=== PATIENT | male | born 1950 | race Caucasian/White ===

== ENCOUNTER 2017-09-21 06:52 | Outpatient (CLI) | payer MEDICARE ==
[2017-09-21 07:40] LABS: Anion Gap 13 mmol/L (10-20); BUN (Urea Nitrogen) 25 mg/dL (8.4-25.7); Calc. Creatinine Clearance 0 mL/min (70-130); Calcium 9.3 mg/dL (7.8-10.44); Carbon Dioxide 21 mmol/L (23-31); Chloride 106 mmol/L (98-107); Estimated GFR-MDRD 50
--- NOTE | 2017-09-21 10:09 | CT ---
EXAM: CT ANGIOGRAM OF THE CHEST: HISTORY: Coronary mapping study. FINDINGS: Visualized mediastinum is unremarkable. No mass, lymphadenopathy, or hematoma. Heart size is within normal limits. No significant pericardial fluid. The visualized upper solid organs are unremarkable. Coronary artery calcifications are noted. Visualized lung parenchyma does not demonstrate any masses or consolidation. Visualized osseous stru ctures are unremarkable. Degenerative changes are noted. Note is made of an incompletely evaluated MediPort catheter. IMPRESSION: Coronary calcifications. POS: [facility]
== END 2017-09-21 06:53 | disposition home or self-care (01) ==
LOC: CT 06:52
PROVIDERS: ATTEND Internal Medicine Cardiovascular Disease
DX: I48.92 Unspecified atrial flutter (principal); R06.02 Shortness of breath; I25.10 Atherosclerotic heart disease of native coronary artery without angina pectoris
CPT/HCPCS: 71275; 80048

== ENCOUNTER 2017-10-02 14:03 | Emergency (ER) | payer MEDICARE ==
[2017-10-02] MEDS ORDERED: Adacel (T-DAP) 0.5 ML VIAL ONE (15:05)
[2017-10-02] MEDS ORDERED: Bacitracin Zinc 1 Packet ONE (15:05)
== END 2017-10-02 16:25 | disposition home or self-care (01) ==
LOC: ERS 14:03
DX: S90.411A Abrasion, right great toe, initial encounter (principal); I48.91 Unspecified atrial fibrillation; I10 Essential (primary) hypertension; E11.40 Type 2 diabetes mellitus with diabetic neuropathy, unspecified; E66.9 Obesity, unspecified; G47.30 Sleep apnea, unspecified; F41.9 Anxiety disorder, unspecified; F32.9 Major depressive disorder, single episode, unspecified; Z79.01 Long term (current) use of anticoagulants; Z79.899 Other long term (current) drug therapy; Z79.4 Long term (current) use of insulin; W26.9XXA Contact with unspecified sharp object(s), initial encounter
CPT/HCPCS: 90471; 90715

== ENCOUNTER 2017-10-13 14:22 | Outpatient (CLI) | payer MEDICARE ==
--- NOTE | 2017-10-13 16:17 | ULT ---
EXAM: RENAL ULTRASOUND 10/13/17 HISTORY: Renal cyst. COMPARISON: None. CORRELATION: Abdomen and pelvic CT 05/15/17. TECHNIQUE: Sagittal and transverse imaging of the kidneys is performed. FINDINGS: Bilaterally, no hydronephrosis. There is mild right renal cortical and left renal cortical thinning. Right kidney measures 11.8 x 5.8 x 6.7 cm. Left kidney measures 12.8 x 5.7 x 5.9 cm. At the upper pole of the left kidney, there is a well circumscribed anechoic focus measuring 3.1 x 2. 6 x 2.8 cm, compatible with a renal cyst. The urinary bladder is unremarkable. Evaluation is limited by decreased bladder volume. IMPRESSION: 1. Bilateral renal cortical thinning. 2. No hydronephrosis. 3. Simple cyst emanating from the upper pole of the left kidney. POS: OFF
== END 2017-10-13 14:23 | disposition home or self-care (01) ==
LOC: ULT 14:22
PROVIDERS: ATTEND Urology
DX: N28.1 Cyst of kidney, acquired (principal)
CPT/HCPCS: 76770

== ENCOUNTER 2017-11-21 05:52 | Day surgery (SDC) | payer MEDICARE ==
[2017-11-21 06:33] LABS: #Basophils 0.1 thou/uL (0.0-0.2); #Eosinphils 0.4 thou/uL (0.0-0.7); #Lymphocytes 1.7 thou/uL (1.20-3.40); #Monocytes 0.9 thou/uL (0.11-0.59); #Neutrophils 5.2 thou/uL (1.40-6.50); %Eosinophils 4.3 % (0.0-10.0); %Lymphocytes 20.7 % (21.0-51.0); %Monocytes 10.5 % (0.0-10.0); %Neutrophils 63.5 % (42.0-75.0); Hemoglobin 11.4 g/dL (14.0-18.0); Mean Corpuscular HGB CONC 33.5 g/dL (32.0-36.0); Mean Corpuscular Volume 89.7 fl (80.0-94.0); Mean Platelet Volume 7.9 fL (7.4-10.4); Platelet Count 247 thou/uL (130-400); RBC Distribution Width 13.2 % (11.5-14.5); Red Blood Cell (RBC) Count 3.79 mill/uL (4.70-6.10); White Blood Cell (WBC) Count 8.2 thou/uL (4.8-10.8)
[2017-11-21 06:41] LABS: INR-International Normal Ratio 2.2; PTT 46.2 SEC (22.9-36.1); Prothrombin Time 25.2 SEC (12.0-14.7)
[2017-11-21 06:56] LABS: ALT (SGPT) 23 U/L (8-55); AST (SGOT) 25 U/L (5-34); Albumin 3.8 g/dL (3.4-4.8); Alkaline Phosphatase 73 U/L (40-150); Anion Gap 17 mmol/L (10-20); BUN (Urea Nitrogen) 23 mg/dL (8.4-25.7); Bilirubin, Total 0.6 mg/dL (0.2-1.2); Calc. Creatinine Clearance 0 mL/min (70-130); Calcium 9.9 mg/dL (7.8-10.44); Carbon Dioxide 20 mmol/L (23-31); Chloride 100 mmol/L (98-107); Estimated GFR-MDRD 45; Globulin 3.4 g/dL (2.4-3.5); Glucose 256 mg/dL (80-115); Potassium 4.4 mmol/L (3.5-5.1); Protein, Total 7.2 g/dL (5.8-8.1); Sodium 133 mmol/L (136-145)
[2017-11-21] MEDS ORDERED: PROPOFOL 20 ML ONE (10:18)
--- NOTE | 2017-11-21 14:18 | OP ---
DATE OF PROCEDURE: 11/21/2017 TRANSESOPHAGEAL ECHOCARDIOGRAM REPORT/CARDIOVERSION REPORT REFERRING PHYSICIAN: Dr. Candie Bernard REASON FOR PROCEDURE: Mr. King is a 67-year-old man with prior history of persistent atrial fibrillation. He underwent pulmonary venous isolation procedure with ablation procedure performed on 09/30/2017. He is now back with atypical atrial flutter. Flecainide was increased to 100 mg twice a day, metoprolol was stopped. The patient is on chronic anticoagulation with warfarin, which though he has not been checking regular. He is to rule out intracardiac clots and proceed with cardioversion. PROCEDURE: The patient received propofol by Anesthesia specialist. After adequate level of sedation achieved, the standard transesophageal echocardiogram was present to the esophagus without difficulty. The patient tolerated procedure well, no complication noted. RESULTS: The left atrium is mildly enlargement. The left appendage was visualized and contains no clots. All 4 pulmonary veins were patent and not stenosed. The visualized portion of the aorta is without aneurysm or dissection , left ventricle is normal in size. Aortic valve is without regurgitation or stenosis. The interatrial septum has a small septal defect with left to right shunting which is the site of the recent transseptal puncture. The tricuspid valve has mild regurgitation. The pericardial space is without effusion. The right-sided chamber is normal in size. The left ventricle is nondilated with normal LV systolic function. CONCLUSION: 1. Normal left ventricular systolic function. 2. No intracardiac clots detected. 3. Mild to moderate left atrial enlargement. 4. Mild MR and TR seen. 5. Small residual atrial septal defect related to the recent transseptal puncture with left to right flow only, likely not significant. PLAN: Proceed with cardioversion. ADDENDUM: After LINDA continued sedation was achieved and cardioversion was performed. Initially with 50 joule shock which failed to convert him back to sinus rhythm, 150 joule shock likewise, eventually at 300 joule shock was applied. This transiently converted him back to sinus rhythm but early recurrence of atrial flutter is noted. The patient continued in 2:1 atrial flutter with 70-80 beats per minute. My plan for now, continue on this current regimen. Continue antiarrhythmic agent- flecainide. We will monitor for tachyarrhythmia, consider resuming metoprolol. If asymptomatic flutter persists we could consider a redo ablation procedure at a later date after 3 months post first ablation. MAYUR
[2017-11-21] MEDS ORDERED: PROPOFOL 200 MG/20 ML VIAL ONE (15:56)
--- NOTE | 2017-11-22 23:34 | EKG ---
Test Reason : PREOP Blood Pressure : / mmHG Vent. Rate : 086 BPM Atrial Rate : 086 BPM P-R Int : 104 ms QRS Dur : 082 ms QT Int : 380 ms P-R-T Axes : 066 035 043 degrees QTc Int : 454 ms Sinus rhythm with short WA Otherwise normal ECG When compared with ECG of 07-MAY-2017 23:45, Sinus rhythm has replaced Atrial fibrillation Confirmed by Eli VIRAMONTES ([id number]) on 11/22/2017 11:34:37 PM Referred By: [facility] Confirmed By:Eli VIRAMONTES
--- NOTE | 2017-11-22 23:38 | EKG ---
Test Reason : POST LINDA/CARDIOVERSI Blood Pressure : / mmHG Vent. Rate : 063 BPM Atrial Rate : 170 BPM P-R Int : 000 ms QRS Dur : 084 ms QT Int : 410 ms P-R-T Axes : 000 046 040 degrees QTc Int : 419 ms Undetermined rhythm Otherwise normal ECG When compared with ECG of 21-NOV-2017 06:56, (Unconfirmed) Current undetermined rhythm precludes rhythm comparison, needs review Confirmed by Eli VIRAMONTES ([id number]) on 11/22/2017 11:37:27 PM Referred By: [facility] Confirmed By:Eli VIRAMONTES
== END 2017-11-21 12:15 | disposition home or self-care (01) ==
LOC: CCL 05:52
PROVIDERS: ATTEND Internal Medicine Cardiovascular Disease
DX: I48.1 Persistent atrial fibrillation (principal); Z79.01 Long term (current) use of anticoagulants; Z79.899 Other long term (current) drug therapy; Z98.890 Other specified postprocedural states
CPT/HCPCS: 36415; 80053; 85025; 85610; 85730; 92960; 93005; 93010; 93312; J2704

== ENCOUNTER 2018-06-08 22:01 | Emergency (ER) | payer MEDICARE ==
[~2018-06-08 22:01] MED LIST: ISOVUE-370 76%-LOCM 1 ML ONE
[2018-06-08 22:19] LABS: #Basophils 0.1 thou/uL (0.0-0.2); #Eosinphils 0.3 thou/uL (0.0-0.7); #Lymphocytes 1.6 thou/uL (1.20-3.40); #Monocytes 1.2 thou/uL (0.11-0.59); %Basophils 0.5 % (0.0-1.0); %Eosinophils 2.5 % (0.0-10.0); %Lymphocytes 13.4 % (21.0-51.0); %Monocytes 9.5 % (0.0-10.0); %Neutrophils 74.2 % (42.0-75.0); Hemoglobin 13.6 g/dL (14.0-18.0); Mean Corpuscular HGB CONC 33.9 g/dL (32.0-36.0); Mean Corpuscular Hemoglobin 30.1 pg (27.0-31.0); Mean Corpuscular Volume 88.8 fL (78.0-98.0); Mean Platelet Volume 7.6 fL (7.4-10.4); Platelet Count 276 thou/uL (130-400); RBC Distribution Width 13.1 % (11.5-14.5); Red Blood Cell (RBC) Count 4.51 mill/uL (4.70-6.10); White Blood Cell (WBC) Count 12.1 thou/uL (4.8-10.8)
[2018-06-08 22:29] LABS: INR-International Normal Ratio 2.6; PTT 43.6 SEC (22.9-36.1)
--- NOTE | 2018-06-08 22:42 | RAD ---
AP VIEW OF THE CHEST: 06/08/18 INDICATION: Chest pain. COMPARISON: Prior study dated 12/05/16. IMPRESSION: There is stable cardiomegaly. Right chest wall port is stable. Vascular calcifications of the aortic arch is stable. No acute osseous abnormality is evident. POS: [facility]
[2018-06-08 22:45] LABS: ALT (SGPT) 35 U/L (8-55); AST (SGOT) 25 U/L (5-34); Albumin 4.4 g/dL (3.4-4.8); Alkaline Phosphatase 70 U/L (40-150); Anion Gap 15 mmol/L (10-20); BUN (Urea Nitrogen) 19 mg/dL (8.4-25.7); Bilirubin, Total 0.4 mg/dL (0.2-1.2); CK (CPK) 87 U/L (30-200); Calc. Creatinine Clearance 0 mL/min (70-130); Calcium 9.8 mg/dL (7.8-10.44); Carbon Dioxide 27 mmol/L (23-31); Chloride 99 mmol/L (98-107); Estimated GFR-MDRD 43; Globulin 3.9 g/dL (2.4-3.5); Glucose 251 mg/dL (80-115); Potassium 4.5 mmol/L (3.5-5.1); Protein, Total 8.3 g/dL (5.8-8.1); Sodium 136 mmol/L (136-145)
[2018-06-08 22:48] LABS: CKMB 2.2 ng/mL (0-6.6); Troponin I Less than 0.010 ng/mL (< 0.028)
--- NOTE | 2018-06-08 23:36 | CT ---
CTA OF THE THORAX UTILIZING IV CONTRAST AND 3D REFORMATTED IMAGIN06/08/18 INDICATION: History of sharp shooting chest pain that radiates into the back. COMPARISON: CT of the abdomen and pelvis dated 05/15/[address] of the chest, abdomen and pelvis dated 09/12/13. FINDINGS: No central or segmental pulmonary embolus is evident. There are new scattered noncalcified pulmonary nodules suspicious for metastatic disease. The largest is seen within the right lower lobe measuring 1.3 cm. There is small bilateral pleural effusions. There is an enlarged anterior mediastinal lymph node on image 38 of series 2 measuring 1 cm. There is an enlarged superior mediastinal lymph node adjacent to the left common carotid and left subclavian artery on image 18 of series 2 measuring 2.4 cm. There are numerous hepatic hypodensities which are new from the comparison examination suspicious for hepatic metastatic disease. Largest seen within the hepatic dome anteriorly on image 87 of series 2 measuring 3 cm. Largest in the left hepatic lobe medially measures 1.9 cm. There is diffuse osteopenia involving the visualized osseous structures. IMPRESSION: 1. No central or segmental pulmonary embolus. 2. Findings of pulmonary and hepatic metastatic disease. 3. Mediastinal lymphadenopathy is suspicious for mediastinal lymph node involvement of malignanc y. 4. Dedicated followup CT of the abdomen and pelvis with IV contrast is recommended for full body survey to evaluate extent of malignant involvement and potential primary source. POS: [facility]
== END 2018-06-08 23:41 | disposition home or self-care (01) ==
LOC: ERS 22:01
DX: R07.89 Other chest pain (principal); R59.0 Localized enlarged lymph nodes; R91.8 Other nonspecific abnormal finding of lung field; I48.91 Unspecified atrial fibrillation; I10 Essential (primary) hypertension; E66.9 Obesity, unspecified; E11.40 Type 2 diabetes mellitus with diabetic neuropathy, unspecified; F41.9 Anxiety disorder, unspecified; F32.9 Major depressive disorder, single episode, unspecified; I49.9 Cardiac arrhythmia, unspecified; Z79.4 Long term (current) use of insulin
CPT/HCPCS: 71045; 71275; 80053; 82550; 82553; 84484; 85025; 85610; 85730; 93005; 94760

== ENCOUNTER 2018-06-16 09:10 | Outpatient (CLI) | payer MEDICARE ==
[~2018-06-16 09:10] MED LIST changes: -ISOVUE-370 76%-LOCM 1 ML ONE; +Iopamidol 370 76% 100 ML VIAL ONE
--- NOTE | 2018-06-19 15:19 | CT ---
CT ABDOMEN AND PELVIS WITH CONTRAST: Date: 06/16/18 Multiple axial tomograms obtained through the abdomen and pelvis with IV enhancement. Oral contrast w as given. INDICATION: History of colon cancer in 2009. This exam is followed up to recent CT angio chest dated 06/08/18 whi ch showed evidence of hepatic metastasis. COMPARISON: CT abdomen and pelvis dated 05/15/17. FINDINGS: Images through the lung bases reveal at least three pulmonary nodules in the right lung base measurin g up to 1.2 cm. There are now numerous hypodense lesions seen throughout the liver which have occurred since exam of 05/15/17. Findings are now consistent with hepatic metastasis. The spleen and pancreas are unremarkable. Adrenal glands appear normal. Kidneys unremarkable. There is an exophytic cyst from the anterior left kidney measuring 2.8 cm, whic h is stable. There is mild perinephric stranding which appears stable. The bladder has irregular shape and there is mild bladder wall thickening which has a similar appeara nce to the prior exam. There is evidence of a diverticulum from the posterior bladder, which was also present on the prior exam. The small bowel loops appear normal. There is haziness in the central mesentery, which is a stable fi nding from 2017. There is a new mesenteric mass in the root of the mesentery in the midline measuring 3.1 cm AP dimens ion in the axial plane consistent with mesenteric adenopathy. Small central calcification within this adenopathy is noted. There was a small area of density and tiny calcification at this site on the pr ior exam. The current study indicates enlargement of mesenteric lymph node since that study. Small bowel loops appear unremarkable. Patient appears to be post right colectomy. There is an enlarged periaortic lymph node at the level of the superior mesenteric artery just to the left of the superior mesenteric artery measuring 1.6 cm. Enlarged aortocaval lymph nodes are seen ju st inferior to the renal veins measuring 1.8 cm. There is a 1.3 cm node just posterior to the vena ca va at this same location. There is an area of thickening of the anterior abdominal wall in the midline measuring approximately 2.6 cm width in the axial plane. This prominence of the anterior abdominal wall is a stable finding f rom 05/15/17 and is probably postoperative. The osseous structures are unremarkable. IMPRESSION: 1. At least three tiny pulmonary nodules in the right lung base concerning for metastasis. 2. Numerous low density lesions in the liver which are too numerous to count consistent with hepatic metastasis. The largest measures 2.6 cm in the upper right lobe. 3. There is mesenteric and periaortic adenopathy which has occurred since exam of 05/15/17 as descri bed above. POS: [facility]
== END 2018-06-16 09:11 | disposition home or self-care (01) ==
LOC: SCSCT 09:10
PROVIDERS: ATTEND Internal Medicine
DX: C18.9 Malignant neoplasm of colon, unspecified (principal); R93.2 Abnormal findings on diagnostic imaging of liver and biliary tract; K76.89 Other specified diseases of liver; R91.8 Other nonspecific abnormal finding of lung field; R59.0 Localized enlarged lymph nodes
CPT/HCPCS: 74177; 82565

== ENCOUNTER 2018-06-22 09:00 | Day surgery (SDC) | payer MEDICARE ==
[2018-06-21 14:27] VITALS: BMI 34.5
[2018-06-22 09:37] LABS: #Basophils 0.1 thou/uL (0.0-0.2); #Eosinphils 0.3 thou/uL (0.0-0.7); #Lymphocytes 1.9 thou/uL (1.20-3.40); #Monocytes 1.2 thou/uL (0.11-0.59); #Neutrophils 10.3 thou/uL (1.40-6.50); %Basophils 0.5 % (0.0-1.0); %Eosinophils 1.9 % (0.0-10.0); %Lymphocytes 13.6 % (21.0-51.0); %Monocytes 8.4 % (0.0-10.0); %Neutrophils 75.5 % (42.0-75.0); Hemoglobin 11.7 g/dL (14.0-18.0); Mean Corpuscular HGB CONC 33.9 g/dL (32.0-36.0); Mean Corpuscular Hemoglobin 30.1 pg (27.0-31.0); Mean Corpuscular Volume 88.7 fL (78.0-98.0); PTT 30.8 SEC (22.9-36.1); Platelet Count 367 thou/uL (130-400); RBC Distribution Width 12.8 % (11.5-14.5); Red Blood Cell (RBC) Count 3.89 mill/uL (4.70-6.10); White Blood Cell (WBC) Count 13.7 thou/uL (4.8-10.8)
[2018-06-22 10:01] VITALS: BP 105/65; TEMP 98.6
--- NOTE | 2018-06-22 13:22 | CT ---
CT GUIDED PERCUTANEOUS BIOPSY OF HEPATIC LESIONS: INDICATIONS: History of colon cancer with numerous hypodense involving the liver, suspicious for recurrent disease . TECHNIQUE: Informed consent was obtained. Pre-procedure CT images were obtained for guidance purposes only. Th e site overlying the right upper quadrant of the abdomen was marked. The site was prepped and draped in the usual sterile fashion. The patient underwent conscious sedation by the radiology nurse and r eceiving 1 mg of IV Versed and 50 mcg of IV fentanyl. Buffered 1% Lidocaine was administered to the overlying subcutaneous tissues and the abdominal wall. Under CT fluoroscopic guidance, a 17 gauge tr ocar needle was guided down to a suspicious lesion within the medial left hepatic lobe, measuring 1.8 cm, on image 9 of series 2 of the pre-procedure CT images. The lesion was sampled twice utilizing a n 18 gauge core biopsy needle with a 2.3 cm throw. Pathology was on site to verify adequacy of tissu e sampling. Upon confirmation of tissue sampling adequacy, a small pledge of Gelfoam was administere d into the biopsy site. The needle was removed. Pressure was held until hemostasis was obtained. T he patient was re-entered into the CT gantry and repeat imaging of the biopsy area was performed. A small amount of pneumobilia was present. No large intraparenchymal hematoma was evident. The patien t tolerated the biopsy without difficulty. IMPRESSION: Successful left hepatic lobe lesion biopsy. POS: [facility]
== END 2018-06-22 12:40 | disposition home or self-care (01) ==
LOC: CT 09:00
PROVIDERS: ATTEND Internal Medicine
PROC: 0FB23ZX Excision of Left Lobe Liver, Percutaneous Approach, Diagnostic (ICD-10-PCS; principal; 2018-06-22)
DX: C78.7 Secondary malignant neoplasm of liver and intrahepatic bile duct (principal); E11.9 Type 2 diabetes mellitus without complications; I10 Essential (primary) hypertension; E78.5 Hyperlipidemia, unspecified; F32.9 Major depressive disorder, single episode, unspecified; G47.33 Obstructive sleep apnea (adult) (pediatric); I48.0 Paroxysmal atrial fibrillation; M19.90 Unspecified osteoarthritis, unspecified site; Z85.038 Personal history of other malignant neoplasm of large intestine; Z79.01 Long term (current) use of anticoagulants; Z79.4 Long term (current) use of insulin; Z79.899 Other long term (current) drug therapy
CPT/HCPCS: 36415; 47000; 77012; 85025; 85610; 85730; 88307; 88333; 88334; 88341; 88342

== ENCOUNTER 2018-07-24 09:26 | Day surgery (SDC) | payer MEDICARE ==
[2018-07-24] MEDS ORDERED: Leucovorin Calcium 50 MG in Dextrose 5% in Water 50 ML IVPB SCH (10:00)
[2018-07-24] MEDS ORDERED: OXALIPLATIN IVPB SCH (10:00)
[2018-07-24] MEDS ORDERED: BEVACIZUMAB IVPB SCH (10:00)
[2018-07-24] MEDS ORDERED: SODIUM CHLORIDE 0.9% IVPB SCH (10:00)
[2018-07-24] MEDS ORDERED: Palonosetron HCl 0.25 MG in Dextrose 5% in Water 50 ML IVPB SCH (10:00)
[2018-07-24] MEDS ORDERED: WATER IVPB SCH ×2 (10:00)
[2018-07-24] MEDS ORDERED: FLUOROURACIL IVPB SCH (10:00)
[2018-07-24] MEDS ORDERED: DEXTROSE 5% IVPB SCH ×2 (10:00)
[2018-07-24] MEDS ORDERED: Bevacizumab 100 MG, Bevacizumab 400 MG in Sodium Chloride 0.9% 80 ML IVPB SCH (10:15)
[2018-07-24 18:23] VITALS: BP 129/67; TEMP 99.3
== END 2018-07-24 18:23 | disposition home or self-care (01) ==
LOC: ONC/OP 09:26
PROVIDERS: ATTEND Internal Medicine Hematology & Oncology
DX: Z51.11 Encounter for antineoplastic chemotherapy (principal); C78.7 Secondary malignant neoplasm of liver and intrahepatic bile duct; C78.01 Secondary malignant neoplasm of right lung; C18.6 Malignant neoplasm of descending colon; E11.9 Type 2 diabetes mellitus without complications; I10 Essential (primary) hypertension; E78.5 Hyperlipidemia, unspecified; G47.33 Obstructive sleep apnea (adult) (pediatric); Z79.4 Long term (current) use of insulin; Z79.899 Other long term (current) drug therapy
CPT/HCPCS: 36415; 80053; 82248; 82378; 83615; 84100; 84550; 96367; 96375; 96413; 96415; 96417; J0640; J1100; J2469; J7050; J7070; J9035; J9190; J9263

== ENCOUNTER 2018-08-07 10:11 | Day surgery (SDC) | payer MEDICARE ==
[2018-08-07] MEDS ORDERED: WATER IVPB SCH ×3 (11:00→11:30)
[2018-08-07] MEDS ORDERED: OXALIPLATIN IVPB SCH (11:00)
[2018-08-07] MEDS ORDERED: DEXTROSE 5% IVPB SCH ×3 (11:00→11:30)
[2018-08-07] MEDS ORDERED: Palonosetron HCl 0.25 MG in Dextrose 5% in Water 50 ML IVPB SCH (11:00)
[2018-08-07 11:13] VITALS: BP 118/58; TEMP 98.2
[2018-08-07] MEDS ORDERED: Sodium Chloride 0.9% 20 ML ONE (11:14)
[2018-08-07] MEDS ORDERED: Leucovorin Calcium 50 MG in Dextrose 5% in Water 50 ML IVPB SCH (11:15)
[2018-08-07] MEDS ORDERED: FLUOROURACIL IVPB SCH (11:15)
[2018-08-07] MEDS ORDERED: Bevacizumab 500 MG in Sodium Chloride 0.9% 80 ML IVPB SCH (11:15)
[2018-08-07] MEDS ORDERED: DEXAMETHASONE SOD PHOSPHATE IVPB SCH (11:30)
== END 2018-08-07 17:09 | disposition home or self-care (01) ==
LOC: ONC/OP 10:11
PROVIDERS: ATTEND Internal Medicine Hematology & Oncology
DX: Z51.11 Encounter for antineoplastic chemotherapy (principal); C78.7 Secondary malignant neoplasm of liver and intrahepatic bile duct; C78.01 Secondary malignant neoplasm of right lung; C18.6 Malignant neoplasm of descending colon; Z79.01 Long term (current) use of anticoagulants; Z79.4 Long term (current) use of insulin; Z79.899 Other long term (current) drug therapy; Z90.49 Acquired absence of other specified parts of digestive tract
CPT/HCPCS: 96367; 96375; 96413; 96415; 96416; 96417; A4216; J0640; J1100; J1642; J2469; J7050; J7070; J9035; J9190; J9263

== ENCOUNTER → 2018-08-21 | Day surgery (SDC) | payer MEDICARE ==
[~2018-08-21] MED LIST changes: +ADMIXTURE FEE IVPB SCH; +Bevacizumab 400 MG, Bevacizumab 100 MG in Sodium Chloride 0.9% 80 ML IVPB SCH; +Bevacizumab 500 MG in Sodium Chloride 0.9% 80 ML IVPB SCH; +DEXAMETHASONE IVPB SCH; +DEXTROSE 5% IVPB SCH; +DEXTROSE IVPB SCH; +FLUOROURACIL IVPB SCH; -Iopamidol 370 76% 100 ML VIAL ONE; +Leucovorin Calcium 50 MG, Admixture Fee 1 EACH in Dextrose 5% in Water 50 ML IVPB SCH; +OXALIPLATIN IVPB SCH; +PALONOSETRON HCL IVPB SCH; +Sodium Chloride 0.9% 20 ML ONE; +WATER IVPB SCH
[2018-08-21 12:30] VITALS: BP 134/69; TEMP 97.6
== END ==
LOC: ONC/OP 12:03
PROVIDERS: ATTEND Internal Medicine Hematology & Oncology
DX: Z51.11 Encounter for antineoplastic chemotherapy (principal); C18.6 Malignant neoplasm of descending colon; C78.7 Secondary malignant neoplasm of liver and intrahepatic bile duct; C78.01 Secondary malignant neoplasm of right lung; E11.9 Type 2 diabetes mellitus without complications; I10 Essential (primary) hypertension; E78.5 Hyperlipidemia, unspecified; M19.90 Unspecified osteoarthritis, unspecified site; F32.9 Major depressive disorder, single episode, unspecified; F41.9 Anxiety disorder, unspecified; D50.9 Iron deficiency anemia, unspecified; G47.33 Obstructive sleep apnea (adult) (pediatric); Z79.4 Long term (current) use of insulin; Z79.01 Long term (current) use of anticoagulants; Z79.899 Other long term (current) drug therapy; Z90.49 Acquired absence of other specified parts of digestive tract
CPT/HCPCS: 96367; 96375; 96413; 96416; 96417; J0640; J1100; J1642; J2469; J7050; J7070; J9035; J9190; J9263

== ENCOUNTER 2018-09-04 09:56 | Day surgery (SDC) | payer MEDICARE ==
[2018-09-04] MEDS ORDERED: Sodium Chloride 0.9% 20 ML ONE (10:05)
[2018-09-04 10:26] VITALS: BP 121/60; TEMP 97.7
[2018-09-04] MEDS ORDERED: Leucovorin Calcium 50 MG in Dextrose 5% in Water 50 ML IVPB SCH (10:45)
[2018-09-04] MEDS ORDERED: WATER IVPB SCH ×3 (10:45→11:00)
[2018-09-04] MEDS ORDERED: OXALIPLATIN IVPB SCH (10:45)
[2018-09-04] MEDS ORDERED: DEXTROSE 5% IVPB SCH ×3 (10:45→11:00)
[2018-09-04] MEDS ORDERED: FLUOROURACIL IVPB SCH (10:45)
[2018-09-04] MEDS ORDERED: PALONOSETRON HCL 0.05 MG/ML 5 ML VIAL IVP SCH (10:45)
[2018-09-04] MEDS ORDERED: Dexamethasone 10 MG/ML VIAL SLOW IVP SCH (10:45)
[2018-09-04] MEDS ORDERED: Palonosetron HCl 0.25 MG in Dextrose 5% in Water 50 ML IVPB SCH (11:00)
[2018-09-04] MEDS ORDERED: Bevacizumab 500 MG in Sodium Chloride 0.9% 80 ML IVPB SCH (11:00)
[2018-09-04] MEDS ORDERED: DEXAMETHASONE SOD PHOSPHATE IVPB SCH (11:00)
== END 2018-09-04 16:05 | disposition home or self-care (01) ==
LOC: ONC/OP 09:56
PROVIDERS: ATTEND Internal Medicine Hematology & Oncology
DX: Z51.11 Encounter for antineoplastic chemotherapy (principal); C18.6 Malignant neoplasm of descending colon; C78.01 Secondary malignant neoplasm of right lung; C78.7 Secondary malignant neoplasm of liver and intrahepatic bile duct; E11.9 Type 2 diabetes mellitus without complications; D50.9 Iron deficiency anemia, unspecified; G47.33 Obstructive sleep apnea (adult) (pediatric); I10 Essential (primary) hypertension; E78.5 Hyperlipidemia, unspecified; F41.9 Anxiety disorder, unspecified; F32.9 Major depressive disorder, single episode, unspecified; M19.90 Unspecified osteoarthritis, unspecified site; Z79.01 Long term (current) use of anticoagulants; Z79.4 Long term (current) use of insulin; Z79.899 Other long term (current) drug therapy; Z90.49 Acquired absence of other specified parts of digestive tract
CPT/HCPCS: 36415; 80053; 82248; 82378; 83615; 84100; 84550; 96367; 96375; 96413; 96415; 96416; 96417; J0640; J1642; J2469; J7050; J7070; J9035; J9190; J9263

== ENCOUNTER 2018-09-18 11:47 | Day surgery (SDC) | payer MEDICARE ==
[2018-09-18 12:29] VITALS: BP 132/68; TEMP 97.7
[2018-09-18] MEDS ORDERED: PALONOSETRON HCL 0.05 MG/ML 5 ML VIAL IVP SCH (12:45)
[2018-09-18] MEDS ORDERED: OXALIPLATIN IVPB SCH (12:45)
[2018-09-18] MEDS ORDERED: Leucovorin Calcium 50 MG in Dextrose 5% in Water 50 ML IVPB SCH (12:45)
[2018-09-18] MEDS ORDERED: WATER IVPB SCH ×2 (12:45)
[2018-09-18] MEDS ORDERED: Bevacizumab 500 MG in Sodium Chloride 0.9% 80 ML IVPB SCH (12:45)
[2018-09-18] MEDS ORDERED: Dexamethasone 10 MG/ML VIAL SLOW IVP SCH (12:45)
[2018-09-18] MEDS ORDERED: FLUOROURACIL IVPB SCH (12:45)
[2018-09-18] MEDS ORDERED: DEXTROSE 5% IVPB SCH ×2 (12:45)
== END 2018-09-18 17:07 | disposition home or self-care (01) ==
LOC: ONC/OP 11:47
PROVIDERS: ATTEND Internal Medicine Hematology & Oncology
DX: Z51.11 Encounter for antineoplastic chemotherapy (principal); C18.6 Malignant neoplasm of descending colon; C78.7 Secondary malignant neoplasm of liver and intrahepatic bile duct; C78.01 Secondary malignant neoplasm of right lung; E11.9 Type 2 diabetes mellitus without complications; I10 Essential (primary) hypertension; E78.5 Hyperlipidemia, unspecified; M19.90 Unspecified osteoarthritis, unspecified site; F41.9 Anxiety disorder, unspecified; F32.9 Major depressive disorder, single episode, unspecified; G47.33 Obstructive sleep apnea (adult) (pediatric); Z79.01 Long term (current) use of anticoagulants; Z79.4 Long term (current) use of insulin; Z79.899 Other long term (current) drug therapy; Z90.49 Acquired absence of other specified parts of digestive tract
CPT/HCPCS: 96367; 96375; 96413; 96415; 96416; 96417; J0640; J1100; J1642; J2469; J7050; J7070; J9035; J9190; J9263

== ENCOUNTER 2018-10-02 09:39 | Day surgery (SDC) | payer MEDICARE ==
[2018-10-02] MEDS ORDERED: Sodium Chloride 0.9% 20 ML ONE (09:51)
[2018-10-02 11:04] VITALS: BP 130/63; TEMP 97.7
[2018-10-02] MEDS ORDERED: PALONOSETRON HCL 0.05 MG/ML 5 ML VIAL IVP SCH (11:15)
[2018-10-02] MEDS ORDERED: Dexamethasone 10 MG/ML VIAL SLOW IVP SCH (11:15)
[2018-10-02] MEDS ORDERED: OXALIPLATIN IVPB SCH (11:15)
[2018-10-02] MEDS ORDERED: DEXTROSE 5% IVPB SCH ×2 (11:15→11:30)
[2018-10-02] MEDS ORDERED: WATER IVPB SCH ×2 (11:15→11:30)
[2018-10-02] MEDS ORDERED: Leucovorin Calcium 50 MG in Dextrose 5% in Water 50 ML IVPB SCH (11:30)
[2018-10-02] MEDS ORDERED: Bevacizumab 500 MG in Sodium Chloride 0.9% 80 ML IVPB SCH (11:30)
[2018-10-02] MEDS ORDERED: FLUOROURACIL IVPB SCH (11:30)
== END 2018-10-02 17:12 | disposition home or self-care (01) ==
LOC: ONC/OP 09:39
PROVIDERS: ATTEND Internal Medicine Hematology & Oncology
DX: Z51.11 Encounter for antineoplastic chemotherapy (principal); C18.6 Malignant neoplasm of descending colon; C78.7 Secondary malignant neoplasm of liver and intrahepatic bile duct; C78.01 Secondary malignant neoplasm of right lung; I48.91 Unspecified atrial fibrillation; E11.9 Type 2 diabetes mellitus without complications; I10 Essential (primary) hypertension; E78.5 Hyperlipidemia, unspecified; M19.90 Unspecified osteoarthritis, unspecified site; F41.9 Anxiety disorder, unspecified; F32.9 Major depressive disorder, single episode, unspecified; G47.33 Obstructive sleep apnea (adult) (pediatric); Z79.01 Long term (current) use of anticoagulants; Z79.4 Long term (current) use of insulin; Z79.899 Other long term (current) drug therapy; Z90.49 Acquired absence of other specified parts of digestive tract
CPT/HCPCS: 96367; 96375; 96413; 96415; 96417; J0640; J1100; J2469; J7050; J7070; J9035; J9190; J9263

== ENCOUNTER 2018-10-09 17:56 | Emergency (ER) | payer MEDICARE, OTHER ==
[2018-10-09] MEDS ORDERED: Ondansetron PF 4 MG/2 ML Vial ONE ×2 (18:35→22:11)
[2018-10-09 18:38] LABS: #Eosinphils 0.1 thou/uL (0.0-0.7); #Lymphocytes 0.9 thou/uL (1.20-3.40); #Monocytes 0.4 thou/uL (0.11-0.59); #Neutrophils 2.3 thou/uL (1.40-6.50); %Basophils 0.3 % (0.0-1.0); %Eosinophils 2.6 % (0.0-10.0); %Lymphocytes 24.2 % (21.0-51.0); %Monocytes 11.5 % (0.0-10.0); %Neutrophils 61.5 % (42.0-75.0); Hemoglobin 11.6 g/dL (14.0-18.0); Mean Corpuscular HGB CONC 35.6 g/dL (32.0-36.0); Mean Corpuscular Hemoglobin 33.1 pg (27.0-31.0); Mean Corpuscular Volume 92.8 fL (78.0-98.0); Mean Platelet Volume 7.3 fL (7.4-10.4); Platelet Count 192 thou/uL (130-400); RBC Distribution Width 16.8 % (11.5-14.5); Red Blood Cell (RBC) Count 3.51 mill/uL (4.70-6.10); White Blood Cell (WBC) Count 3.7 thou/uL (4.8-10.8)
[2018-10-09 18:55] LABS: ALT (SGPT) 19 U/L (8-55); AST (SGOT) 21 U/L (5-34); Albumin 3.5 g/dL (3.4-4.8); Alkaline Phosphatase 59 U/L (40-150); Anion Gap 12 mmol/L (10-20); BUN (Urea Nitrogen) 30 mg/dL (8.4-25.7); Bilirubin, Total 0.5 mg/dL (0.2-1.2); Calc. Creatinine Clearance 0 mL/min (70-130); Calcium 8.5 mg/dL (7.8-10.44); Carbon Dioxide 24 mmol/L (23-31); Chloride 95 mmol/L (98-107); Estimated GFR-MDRD 42; Globulin 3.3 g/dL (2.4-3.5); Glucose 207 mg/dL (80-115); Lipase 8 U/L (8-78); Protein, Total 6.8 g/dL (5.8-8.1); Sodium 127 mmol/L (136-145)
[2018-10-09 21:18] LABS: Bilirubin Negative (Negative); Blood, Urine Trace (Negative); Clarity CLOUDY (Clear); Glucose, Urine (Dipstick) 500 mg/dL (Negative); Leukocyte Small (Negative); Nitrite Positive (Negative); Protein, Urine (Dipstick) 30 mg/dL (Neg-Trace); Specific Gravity, Urine 1.018 (1.002-1.036); Urobilinogen 0.2 mg/dL (0.2-1.0); pH, Urine 5.5 (5.0-9.0)
[2018-10-09 21:19] LABS: Bacteria/HPF 2+ HPF (None Seen); Hyaline Casts/LPF 4-6 HYALINE CAST LPF (0-3 Hyaline); Pathc Cast-AUWi Flag 0.29 (0-2.49); RBC/HPF 0-3 HPF (0-3); Squamous Epithelial None Seen HPF (0-3); WBC/HPF 21-50 HPF (0-3)
[2018-10-09] MEDS ORDERED: cefTRIAXone\\ROCEPHIN 1 GM VIAL ONE (21:41)
[2018-10-09 23:36] LABS: Lactic Acid 1.4 mmol/L (0.5-2.2)
[2018-10-10 02:52] LABS: Osmolality, Urine 459 mOsm/kg (300-900)
[2018-10-10 03:19] LABS: Sodium, Urine 33 mmol/L (Not Available)
== END 2018-10-09 23:08 | disposition home or self-care (01) ==
LOC: ERS 17:56
DX: R19.7 Diarrhea, unspecified (principal); N39.0 Urinary tract infection, site not specified; I48.91 Unspecified atrial fibrillation; E11.9 Type 2 diabetes mellitus without complications; I10 Essential (primary) hypertension; E11.40 Type 2 diabetes mellitus with diabetic neuropathy, unspecified; E66.9 Obesity, unspecified; G47.30 Sleep apnea, unspecified; F41.9 Anxiety disorder, unspecified; F32.9 Major depressive disorder, single episode, unspecified; Z79.899 Other long term (current) drug therapy; Z79.01 Long term (current) use of anticoagulants; Z79.4 Long term (current) use of insulin
CPT/HCPCS: 36415; 80053; 81003; 81015; 82274; 83605; 83690; 83930; 83935; 84300; 85025; 87077; 87086; J0696; J2405

== ENCOUNTER 2018-10-10 00:51 | Inpatient (IN) | payer MEDICARE, OTHER ==
[2018-10-10] MEDS ORDERED: Mag-Al 1200 mg/1200 mg/30 ML UDCUP ONE (02:03)
[2018-10-10] MEDS ORDERED: Lidocaine Viscous Sol 2% 15 ml UD Cup ONE (02:03)
[2018-10-10] MEDS ORDERED: Dicyclomine 20 MG TAB ONE (02:03)
[2018-10-10] MEDS ORDERED: Ondansetron PF 4 MG/2 ML Vial ONE (02:03)
[2018-10-10 02:39] LABS: Anion Gap 10 mmol/L (10-20); BUN (Urea Nitrogen) 28 mg/dL (8.4-25.7); CK (CPK) 63 U/L (30-200); Calc. Creatinine Clearance 0 mL/min (70-130); Calcium 8.1 mg/dL (7.8-10.44); Carbon Dioxide 25 mmol/L (23-31); Chloride 102 mmol/L (98-107); Estimated GFR-MDRD 51; Glucose 130 mg/dL (80-115); Potassium 4.2 mmol/L (3.5-5.1); Sodium 133 mmol/L (136-145)
[2018-10-10 06:05] LABS: Hemoglobin 10.5 g/dL (14.0-18.0); Mean Corpuscular HGB CONC 35.6 g/dL (32.0-36.0); Mean Corpuscular Volume 92.8 fL (78.0-98.0); Mean Platelet Volume 7.3 fL (7.4-10.4); Platelet Count 166 thou/uL (130-400); RBC Distribution Width 16.7 % (11.5-14.5); Red Blood Cell (RBC) Count 3.17 mill/uL (4.70-6.10); White Blood Cell (WBC) Count 3.2 thou/uL (4.8-10.8)
[2018-10-10 06:10] LABS: Lactic Acid 1.2 mmol/L (0.5-2.2)
[2018-10-10 06:12] LABS: ALT (SGPT) 16 U/L (8-55); AST (SGOT) 17 U/L (5-34); Alkaline Phosphatase 46 U/L (40-150); Anion Gap 11 mmol/L (10-20); BUN (Urea Nitrogen) 28 mg/dL (8.4-25.7); Bilirubin, Total 0.4 mg/dL (0.2-1.2); Calc. Creatinine Clearance 0 mL/min (70-130); Calcium 7.9 mg/dL (7.8-10.44); Carbon Dioxide 22 mmol/L (23-31); Chloride 102 mmol/L (98-107); Estimated GFR-MDRD 52; Globulin 2.7 g/dL (2.4-3.5); Glucose 118 mg/dL (80-115); Potassium 3.6 mmol/L (3.5-5.1); Protein, Total 5.7 g/dL (5.8-8.1); Sodium 131 mmol/L (136-145)
[2018-10-10 06:32] LABS: Band 26 % (5-11); Eosinophils 3 % (0-10); Lymphocytes 35 % (21-51); MDiff Complete? YES; Monocytes 8 % (0-10); Neutrophil 26 % (42-75); Reactive Lymphocytes 2 % (0-10)
[2018-10-10] MEDS ORDERED: Ondansetron ODT 4 MG TAB SL PRN (06:50)
[2018-10-10] MEDS ORDERED: Acetaminophen 325 MG TAB PO PRN (06:50)
[2018-10-10] MEDS ORDERED: Ondansetron PF 4 MG/2 ML Vial IVP PRN (06:50)
[2018-10-10] MEDS ORDERED: Sodium Chloride 0.9% 1,000 ML IV SCH (06:50)
[2018-10-10] MEDS ORDERED: Dextrose 50% Abboject 50 ML SYRINGE SLOW IVP PRN (07:37)
[2018-10-10] MEDS ORDERED: Dextrose 5% in Water 1,000 ML IV PRN (07:37)
--- NOTE | 2018-10-10 09:07 | CT ---
PRELIMINARY REPORT/[facility]/EMERGENTY AFTER-HOURS PROCEDURE CT Abdomen and Pelvis With Contrast EXAM DATE/TIME: 10/10/2018 3:05 AM CLINICAL HISTORY: 68 years old, male; worsening lower abdominal pain, was just dc but told to come back if symptoms ret urned. HX stage 3 colon cancer, current cancer therapy. HX diabetes, chronic afib on warfarin present s as a bounce back to ER for diffuse abdominal pain and diarrhea since last week. States watery diarrhea x 5 episodes today. Last chemo a week ago TECHNIQUE: Axial computed tomography images of the abdomen and pelvis with intravenous contrast. Coronal reformatted images were created and reviewed. COMPARISON: No relevant prior studies available. FINDINGS: Lower thorax: Coronary artery and aortic / mitral valve annulus calcification. Possible 3 mm nodule posteromedial right lung base axial image 19. ABDOMEN: Liver: Scattered low-density lesions of varying sizes throughout the liver measuring up to 2.2 cm in diameter and consistent with hepatic metastatic disease. Gallbladder and bile ducts: Normal. No calcified stones. No ductal dilation. Pancreas: Normal. No ductal dilation. Spleen: Normal. No splenomegaly. Adrenals: Normal. No mass. Kidneys and ureters: 2.8 cm lateral left renal simple cyst. No hydronephrosis. Stomach and bowel: Nonspecific stranding in the small bowel mesentery Prior right hemicolectomy with ileocolic anastomosis in the mid transverse colon region. Multiple small bowel loops exhibit mild wal l thickening indicating a mild enteritis. No well-formed stool within the colon - only fluid and air - suggesting diarrhea. Appendix: No evidence of appendicitis. PELVIS: Bladder: Air collection within anterior portion of the bladder lumen following montoya catheterization. Bladder infection cannot be totally excluded. Reproductive: Prostate gland is not enlarged. Vas deferens calcification. ABDOMEN and PELVIS: Intraperitoneal space: Normal. No free air. No significant fluid collection. Bones/joints: Spinal degenerative changes. Soft tissues: Prior ventral hernia repair. Vasculature: Normal. No abdominal aortic aneurysm. Lymph nodes: Approximate 3.5 x 1.6 cm enlarged lymph node in the medial harriet hepatis region. 2.1 cm lymph node within the mid mesentery on axial image 47. IMPRESSION: 1. Scattered low-density lesions of varying sizes throughout the liver measuring up to 2.2 cm in diam eter and consistent with hepatic metastatic disease. 2. Approximate 3.5 x 1.6 cm enlarged lymph node in the medial harriet hepatis region. 2.1 cm lymph node within the mid mesentery on axial image 47. 3. Prior right hemicolectomy with ileocolic anastomosis in the mid transverse colon region. 4. Multiple small bowel loops exhibit mild wall thickening indicating a mild enteritis. 5. No well-formed stool within the colon - only fluid and air - suggesting diarrhea. 6. Air collection within anterior portion of the bladder lumen following montoya catheterization. Bladd er infection cannot be totally excluded. 7. Possible 3 mm nodule posteromedial right lung base axial image 19. Thank you for allowing us to participate in the care of your patient. Dictated and Authenticated by: Arben Kwon MD 10/10/2018 3:48 AM Central Time ([place] & [place]) FINAL REPORT EMERGENCY AFTER HOURS CT ABDOMEN AND PELVIS WITH IV CONTRAST: Date: 10/10/18 HISTORY: Periumbilical abdominal pain. COMPARISON: 06/16/18. IMPRESSION: 1. Stable multiple hypodense lesions scattered within each lobe of the liver, compatible with he patic metastatic disease. 2. Enlarged lymph node in the region of the harriet hepatis in a precaval location, also seen on p rior study, but is actually smaller in size, previously measuring 5.4 cm x 2.3 cm and now measures 4. 4 cm x 1.8 cm. 3. Hypodense lesion within the central mesentery measuring approximately 2.7 cm in maximal dimen sions, and previously measured 3.1 cm in maximal dimensions. There is stable inflammatory stranding a nd haziness within the central mesentery as well. 4. Postsurgical changes related to right hemicolectomy. 5. Approximately 6.0 mm pulmonary nodule at the posteromedial right lung base. This measured 13. 0 mm on the prior exam. Additional tiny nodular densities also seen within the right middle lobe with a conglomeration of very tiny pulmonary nodules in this region, but this is also diminished from the prior exam. The additional pulmonary nodule in the right lung base is no longer visualized. 6. Focus of gas in the urinary bladder which may be related to recent catheterization. Clinical correlation is recommended. 7. Focal area of thickening in the anterior abdominal wall in the midline. The exact etiology of this area is uncertain, but could potentially be related to prior postsurgical changes. This is stab le compared to the prior exam in 2017. 8. Low density focus within the gluteal subcutaneous fat on the right, which could be related to small sebaceous cyst. This is also stable compared to study dating back to 2017. Findings are in agreement with the preliminary report by [facility]. POS: [facility]
[2018-10-10] MEDS ORDERED: Cefepime 1 GM in Sodium Chloride 0.9% 100 ML IVPB SCH (10:00)
[2018-10-10] MEDS ORDERED: Iopamidol 370 76% 100 ML VIAL ONE (10:02)
[2018-10-10] MEDS: Morphine 2 MG/ML SYRINGE SLOW IVP PRN ×3 (10:05→21:11)
[2018-10-10 11:08] VITALS: BMI 33.5
[2018-10-10] MEDS: metroNIDAZOLE 500 MG in Premix Bag 1 BAG IVPB SCH ×3 (12:20→23:28)
[2018-10-10] MEDS: HumaLOG 300 UNITS/3 ML VIAL SC PRN (12:22)
--- NOTE | 2018-10-10 13:16 | HP ---
CHIEF COMPLAINT: Diarrhea, nausea, and abdominal pain. HISTORY OF PRESENT ILLNESS: The patient is a 68-year-old male with recurrent colon cancer, on chemotherapy, the last session a week ago, who presented to the emergency room with few day history of abdominal pain, nausea, but no vomiting, and diarrhea. He has watery bowel movements from 8 to 10 daily. This did not really change much from the beginning of this illness. He denies any fever or chills. He denies any chest pain. No shortness of breath. PAST MEDICAL HISTORY: Positive for; 1. Recurrent colon cancer, on chemotherapy. 2. Chronic atrial fibrillation, status post ablation x2. 3. Hypertension. 4. Restless legs syndrome. 5. Chronic kidney disease. 6. Obesity and obstructive sleep apnea. PAST SURGICAL HISTORY: 1. Right fourth toe amputation for osteomyelitis. 2. Colon surgery along with liver resection. 3. Hernia repair. SOCIAL HISTORY: He denies any alcohol intake, cigarette smoking, or illicit drug use. ALLERGIES: NONE. MEDICATIONS: 1. Gabapentin 300 mg three times a day. 2. Loperamide 2 mg as needed. 3. Glipizide 10 mg twice a day. 4. Zofran ODT 8 mg p.r.n. every 8 hours. 5. Warfarin 7.5 mg once a day, half a tablet on Tuesdays. 6. Metoprolol tartrate 25 mg twice a day. 7. Lisinopril 20 mg once a day. 8. Flecainide 100 mg twice a day. 9. Janumet 50 mg/1000 mg one tablet twice a day. 10. Lipitor 20 mg once a day. 11. Levemir 40 units twice a day. 12. Melatonin p.r.n. 13. Keflex 500 mg four times a day. FAMILY HISTORY: He was adopted, so he does not know his biological parents. REVIEW OF SYSTEMS: Fourteen systems were reviewed and symptoms from those systems are negative except for those mentioned in the HPI. PHYSICAL EXAMINATION: VITAL SIGNS: Last blood pressure recorded on the chart, blood pressure 129/75, pulse 92, respiratory rate 17, temperature 98.6, and O2 saturation is 99% on room air. HEENT: Head is atraumatic and normocephalic. Eyes, PERRLA. Sclerae are nonicteric. Conjunctivae palish. Oral mucosa is slightly dry. NECK: Supple. No lymphadenopathy. Thyroid is not palpable. LUNGS: Clear. There is a MediPort in the right upper chest. HEART: S1 and S2. Irregularly irregular. No S3. No S4. ABDOMEN: Soft, nontender, and nondistended. Bowel sounds are present, quite active. No organomegaly. EXTREMITIES: No clubbing, cyanosis, or edema. Pulses on both tibialis posterior and dorsalis pedis arteries similar bilaterally and diminished. NEUROLOGICAL: He is alert and oriented x4. There are no any motor or sensory deficits present. Cranial nerves are intact. LABORATORY DATA: Showed a white count of 3.2, hemoglobin 10.5, hematocrit 29.4, and platelet count is 166. There is 26% of neutrophils and 26 bands. Chemistry shows sodium of 131, potassium 3.6, chloride 102, BUN 28, creatinine 1.35, glucose 118, total protein 5.7, and albumin 3.0. DIAGNOSTIC DATA: 1. EKG showed atrial fibrillation with controlled ventricular rate, some prolongation of QT interval. 2. CT of the abdomen and pelvis results are still pending, but there is some suspicion that he might have colitis. IMPRESSION: 1. Acute gastroenteritis and since he is immunocompromised, I will start him on antibiotics. He has elevated bands and leukopenia. I will start him on cefepime and metronidazole. Continue IV fluids. Stool cultures are pending. 2. Renal failure, acute on chronic. 3. Chronic atrial fibrillation with controlled ventricular rate. 4. Hypertension. 5. Type 2 diabetes mellitus. 6. Colon cancer, recurrent. 7. Restless legs syndrome. 8. Obesity and obstructive sleep apnea. PLAN: Full admission. Condition is fair. Activity bedrest and bathroom privileges. IV normal saline 120 mL/h for now. Start cefepime and metronidazole. Morphine p.r.n. for the pain. DVT prophylaxis with SCDs and Lovenox and reconcile his home medications. Accu-Chek a.c. and at bedtime and my sliding scale and he will be on clear liquids for now. Job ID: [id number]
[2018-10-10] MEDS: Sodium Chloride 0.9% 1,000 ML IV SCH (17:08)
[2018-10-11] MEDS: Cefepime 1 GM in Sodium Chloride 0.9% 100 ML IVPB SCH ×2 (01:22→14:18)
[2018-10-11] MEDS: Morphine 2 MG/ML SYRINGE SLOW IVP PRN ×4 (02:26→19:24)
[2018-10-11] MEDS: Sodium Chloride 0.9% 1,000 ML IV SCH ×3 (04:34→15:51)
[2018-10-11] MEDS: metroNIDAZOLE 500 MG in Premix Bag 1 BAG IVPB SCH ×2 (05:16→14:00)
[2018-10-11] MEDS ORDERED: Dextrose 5% in Water 1,000 ML IV PRN (12:12)
[2018-10-11] MEDS ORDERED: Dextrose 50% Abboject 50 ML SYRINGE SLOW IVP PRN (12:12)
--- NOTE | 2018-10-11 13:24 | PRG ---
DATE OF SERVICE: 10/11/2018 SUBJECTIVE: The patient is seen and examined at the bedside. He is having a lot of watery stools up to 15 in the last 24 hours. There is no blood in the stool. He has some abdominal cramps. No nausea. No vomiting. His appetite is diminished. OBJECTIVE: VITAL SIGNS: Blood pressure is 119/81, pulse is 111, temperature is 98.6, respirations 20, pulse oximetry is 97% on room air. HEENT: His head is atraumatic and normocephalic. Eyes are PERRLA. Sclerae are nonicteric. Conjunctivae palish. Oral mucosa is moist. NECK: Supple. No lymphadenopathy. Thyroid is not palpable. Right upper chest MediPort in place. LUNGS: Clear. HEART: S1 and S2. Irregularly irregular. No S3. No S4. ABDOMEN: Soft, mildly tender in diffuse fashion. No guarding. No masses. EXTREMITIES: No clubbing, cyanosis, or edema. Right heel showed decubitus with eschar covering the area. NEUROLOGIC: He is alert and oriented x4. There are no any sensory or motor deficits. Cranial nerves are intact. During my visit, the patient's and his friend present in the room. LABORATORY DATA: Glycemia is ranging from 125 to 162. Microbiology; all tests on his stool negative including Campylobacter, Clostridium difficile antigen and toxins, and stool cultures. Lactoferrin came back positive on his stool. IMPRESSION: 1. Acute enteritis. The patient is not improving. He still has approximately 10 to 15 watery bowel movements in 24 hours despite of taking cefepime and metronidazole. We will get a GI consult with Dr. Wells. We will decrease the IV fluids to 100 mL/hour. We will continue cefepime and metronidazole since all cultures basically negative. 2. Renal failure, acute on chronic. 3. Chronic atrial fibrillation with controlled ventricular rate. We are going to restart his flecainide today. 4. Hypertension, despite of not being on his home medications, his blood pressure is running in good range, so I am going to hold his lisinopril from restarting. 5. Diabetes mellitus type 2, the same situation here. He is going to do Accu-Cheks a.c. and at bedtime and we covered with insulin sliding scale and we are not going to give him home dose of Lantus, which is 40 units along with diabetic pill, which is glipizide. 6. Colon cancer, recurrent. The patient is supposed to have a followup CT, but this is going to be postponed. 7. Restless legs syndrome. 8. Obesity and obstructive sleep apnea. The patient is using BiPAP at home and at night during this hospitalization. PLAN: Plan is to get a GI consult. I will start him on Florastor. Continue both antibiotics. Start his flecainide. Continue full liquid diet, and he might be scoped by lace pinner. Job ID: [id number]
[2018-10-11 14:41] LABS: Hemoglobin 9.4 g/dL (14.0-18.0); Mean Corpuscular HGB CONC 33.9 g/dL (32.0-36.0); Mean Corpuscular Hemoglobin 31.8 pg (27.0-31.0); Mean Corpuscular Volume 93.7 fL (78.0-98.0); Mean Platelet Volume 6.7 fL (7.4-10.4); Platelet Count 126 thou/uL (130-400); RBC Distribution Width 16.6 % (11.5-14.5); Red Blood Cell (RBC) Count 2.96 mill/uL (4.70-6.10); White Blood Cell (WBC) Count 2.6 thou/uL (4.8-10.8)
[2018-10-11 15:15] LABS: Anisocytosis SLIGHT = 6-15 cells (100X) (0-5/hpf); Band 18 % (5-11); Dohle Bodies SLIGHT; Eosinophils 1 % (0-10); Lymphocytes 27 % (21-51); MDiff Complete? YES; Monocytes 24 % (0-10); Neutrophil 22 % (42-75); Ovalocytes SLIGHT = 2-5 cells (100X) (0-1/hpf); PLT Morphology Comment Appears Decreased; Polychromasia SLIGHT = 2-3 cells (100X) (0-2/hpf); Reactive Lymphocytes 7 % (0-10)
[2018-10-11] MEDS ORDERED: Flecainide 50 MG TAB PO SCH (15:30)
[2018-10-11] MEDS ORDERED: Melatonin 3 MG TAB PO PRN (15:49)
[2018-10-11] MEDS ORDERED: Ondansetron ODT 4 MG TAB PO PRN (15:50)
[2018-10-11] MEDS ORDERED: Prochlorperazine Maleate 5 MG TAB PO PRN (15:51)
[2018-10-11] MEDS: Flecainide 50 MG TAB PO SCH (20:24)
[2018-10-11] MEDS: Diphenoxylate HCl/Atropine Tablet PO SCH (20:25)
[2018-10-11] MEDS: Gabapentin 300 MG CAP PO SCH (20:26)
[2018-10-11] MEDS: diphenhydrAMINE 25 MG CAP PO SCH (21:25)
--- NOTE | 2018-10-11 21:48 | CON ---
DATE OF CONSULTATION: 10/11/2018 REASON FOR CONSULTATION: Diarrhea. HISTORY OF PRESENT ILLNESS: Mr. 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 He has had previous colon cancer, resulted in right hemicolectomy with ileocolonic anastomosis. He has had chronic loose stool 2 to 3 times a day and previously had been on colestipol for bile acid diarrhea. However, over the last five days, he has had significantly increasing diarrhea, 15 to 20 episodes of watery loose stool daily without any mucus or blood. He reports having diffuse abdominal cramps after eating. There is some nausea, but without any actual vomiting. He denies having any fever. He was on a 4-day course of oral antibiotics approximately a week and a half ago for foot ulcer. The patient has been on outpatient chemotherapy for his colon cancer that started back in July without any significant diarrhea. On admission, his CT exam was normal except for nonspecific small bowel mild wall thickening and hepatic metastatic disease. The colon appeared normal on scan. His stool lactoferrin is positive. Cultures, C. diff, E. coli, and Campylobacter were negative. PAST MEDICAL HISTORY: 1. Colon cancer, status post right hemicolectomy, now with recurrent metastatic cancer to liver and lungs. 2. Atrial fibrillation. 3. Hypertension. 4. Restless legs syndrome. 5. Obstructive sleep apnea. 6. Chronic kidney disease. 7. History of toe amputation. ALLERGIES: NONE. MEDICATIONS: Include; 1. Gabapentin. 2. Glipizide. 3. Warfarin. 4. Metoprolol. 5. Lisinopril. 6. Flecainide. 7. Janumet. 8. Lipitor. 9. Levemir. 10. Melatonin. 11. Keflex. SOCIAL HISTORY: The patient is . He denies any active tobacco or alcohol usage. FAMILY HISTORY: The patient's family history is unknown as the patient was adopted. REVIEW OF SYSTEMS: Positive for weight loss, exact amount is not known. He reports feeling weak and fatigue. No fever or night sweats. Other 10-point review of systems did not show any other pertinent positives or negatives. PHYSICAL EXAMINATION: VITAL SIGNS: Temperature is 98.6, blood pressure 119/81, pulse of 110. GENERAL: He is alert, conversant, in no distress. HEENT: Exam shows anicteric sclerae. Oropharynx clear. NECK: Supple. CV: Shows normal S1, S2. Regular rate and rhythm. CHEST: Shows breath sounds. ABDOMEN: Protuberant, but soft and nontender to palpation. There is no palpable mass or organomegaly. Good bowel sounds. No bruits. EXTREMITIES: Shows no edema. LABORATORY DATA: WBCs 2.6, hemoglobin 9.4, platelet count of 126. Sodium 131, potassium 3.6, chloride 102. LFTs are normal. Stool lactoferrin is positive. C. diff negative for toxin and antigen. Stool culture negative. Campylobacter and E. coli toxin are negative. ASSESSMENT: A 68-year-old man with significantly increasing diarrhea for the last five days over his baseline, frequent loose stool from previous right hemicolectomy. CT scan showed nonspecific mild mural thickening of the small bowel without any definite abnormalities to the colon. Stool studies are negative. Stool lactoferrin is positive, but this could be very nonspecific. The patient did have an outpatient colonoscopy in August 2017 with findings of small polyps. Differential diagnosis includes antibiotic-associated diarrhea that was given for his foot ulcer recently, diarrhea related to his chemotherapy, which I do not know what regimen he is currently on, doubt microscopic colitis at the present time, and doubt malabsorption. RECOMMENDATION: 1. Repeat stool C. diff. 2. Check spot fecal fat. 3. Discontinue cefepime and metronidazole as there is no evidence of bacterial infection. 4. We will contact [facility] to determine what chemotherapeutic agent that he is on that may be contributing to his diarrhea. 5. We will follow. Job ID: [id number]
[2018-10-12] MEDS: Sodium Chloride 0.9% 1,000 ML IV SCH ×3 (01:35→16:04)
--- NOTE | 2018-10-12 05:04 | CON ---
DATE OF CONSULTATION: 10/11/2018 LOCATION: [facility]. CHIEF COMPLAINT: Decubitus ulcer, right heel. HISTORY OF PRESENT ILLNESS: The patient is a 68-year-old male who was admitted to [facility] in [facility] on the 10 of October for abdominal pain and nausea, but no vomiting or diarrhea. The patient notes that he was seen within the last week or so by his primary care. During that visit, it was noted that he had an ulceration, unstageable decubitus ulcer on his right heel. The patient notes he was given antibiotic at that time to help treat the ulceration as well as being told to reduce pressure on the site. The patient notes that following this, he developed abdominal pain and nausea which escalated to the point that required him to go to the emergency room. The patient denies any fever or chills and notes that he has not been vomiting. The patient is diabetic. No other complaints today. PAST MEDICAL HISTORY: Recurrent colon cancer, chronic atrial fibrillation, hypertension, restless legs syndrome, chronic kidney disease, and obesity. PAST SURGICAL HISTORY: 1. Right 4th toe amputation due to osteomyelitis. 2. Colon surgery along with liver resection. 3. Hernia repair. SOCIAL HISTORY: Denies any alcohol, cigarette, or illicit drug use. ALLERGIES: NONE. MEDICATIONS: Per chart. FAMILY HISTORY: Noncontributory. REVIEW OF SYSTEMS: Noncontributory. PHYSICAL EXAMINATION: PULSES: DP and PT palpable, 2/4 bilaterally. NEURO: Diminished to the level of the mid foot bilaterally. MUSCULOSKELETAL: Muscle strength is 5/5 in all muscle groups with dorsiflexion, plantar flexion, inversion, eversion of bilateral feet. DERM: The patient is missing 4th digit on the right foot. The patient also has an unstageable decubitus ulcer at the posterior aspect of his right heel. There is a blister noted in this location that is intact with some black discoloration to heel. No erythema or edema. No drainage noted. No purulence. Fluid filling in the blister appears to be serous and clear. No exposed tendon or bone. No malodor. LABORATORY DATA: White blood cell count 2.6, hemoglobin 9.4, hematocrit 27.7, platelets 126,000. Glucose 187. Blood cultures are negative so far. ASSESSMENT: Decubitus heel ulcer, right foot. PLAN: At this time, the patient was educated on decubitus heel ulcers. Recommended offloading boot to be applied to the patient's right lower extremity. Painted wound with Betadine and applied a light dressing. As patient is in hospital, recommend continued light dressing with Betadine and cover the area to prevent infection from settling in the heel. The patient needs to keep his heel elevated off the bed at all times via boot or stack of pillows underneath his lower leg. No pressure is detected back of the right heel at any point. Ordered wound care for daily dressing changes. Ordered offloading boot to be applied to right lower extremity. The patient's decubitus ulcer is stable at this time. Job ID: [id number]
[2018-10-12 06:12] LABS: Anion Gap 11 mmol/L (10-20); BUN (Urea Nitrogen) 8 mg/dL (8.4-25.7); Calc. Creatinine Clearance 90 mL/min (70-130); Calcium 7.7 mg/dL (7.8-10.44); Carbon Dioxide 19 mmol/L (23-31); Chloride 105 mmol/L (98-107); Estimated GFR-MDRD 61; Glucose 175 mg/dL (80-115); Potassium 3.3 mmol/L (3.5-5.1); Sodium 132 mmol/L (136-145)
[2018-10-12 08:23] LABS: Prothrombin Time 72.5 SEC (12.0-14.7)
[2018-10-12 08:25] LABS: INR-International Normal Ratio 8.9
[2018-10-12] MEDS: metFORMIN 500 MG TAB PO SCH ×2 (08:42→16:04)
[2018-10-12] MEDS: Alogliptin 6.25 MG TAB PO SCH (08:43)
[2018-10-12] MEDS: Gabapentin 300 MG CAP PO SCH ×3 (08:43→20:36)
[2018-10-12] MEDS: Flecainide 50 MG TAB PO SCH ×2 (08:43→20:35)
[2018-10-12] MEDS: Saccharomyces boulardii 250 MG CAP PO SCH (08:44)
[2018-10-12] MEDS: Morphine 2 MG/ML SYRINGE SLOW IVP PRN ×3 (08:50→23:54)
[2018-10-12] MEDS: Diphenoxylate HCl/Atropine Tablet PO SCH ×3 (09:24→20:39)
[2018-10-12] MEDS ORDERED: Potassium Chloride 20 MEQ TAB PO SCH (10:00)
--- NOTE | 2018-10-12 11:48 | PRG ---
DATE OF SERVICE: 10/12/2018 SUBJECTIVE: The patient is feeling better. He is having much less bowel movements than before. Dr. Wells started him on a scheduled dose of Lomotil 2 b.i.d. He has had 7 bowel movements this morning already. He denies any abdominal pain. He reports a good liquid intake, but not a lot of food intake because of the lack of appetite. OBJECTIVE: VITAL SIGNS: Temperature is 97.9, pulse 99, respiratory rate 18, and blood pressure 145/90. CHEST: Clear. CARDIOVASCULAR: Regular rate and rhythm. ABDOMEN: Soft and nontender without organomegaly or masses. LABORATORY DATA: Sodium 132, potassium 3.3, CO2 of 19, glucose 175, calcium 7.7, and magnesium 1.1. CBC yesterday showed a white blood cell count of 2.6, hemoglobin 9.4, and hematocrit 27.7. ASSESSMENT: Acute diarrhea - antibiotic associated versus chemotherapy versus Clostridium difficile. RECOMMENDATIONS: 1. Increase Lomotil. 2. Discontinue antibiotics. 3. Increase oral intake. 4. Magnesium replacement. Job ID: [id number]
--- NOTE | 2018-10-12 13:22 | PRG ---
DATE OF SERVICE: 10/12/2018 SUBJECTIVE: The patient is doing better. He had less bowel movement, approximately 6 or 7 since yesterday. He still has some abdominal pain, but much less, and he tolerates food. OBJECTIVE: VITAL SIGNS: Blood pressure is 145/90, pulse is 99, respiratory rate is 18, O2 saturation is 97% on room air, and temperature is 97.7. His maximal temperature is 99.3. HEENT: Head is atraumatic and normocephalic. Eyes, PERRLA. Sclerae are nonicteric. Oral mucosa is moist. NECK: Supple. LUNGS: Clear. HEART: S1, S2. Irregularly irregular. No S3, no S4. No any murmur. ABDOMEN: Soft, mildly tender on deeper palpation. Bowel sounds are quite active. No guarding. No masses. EXTREMITIES: No clubbing, cyanosis, or edema. NEUROLOGIC: He is alert and oriented x4. There is no any motor or sensory deficits. Cranial nerves are intact. LABORATORY DATA: Showed INR of 8.9, PT of 72.5, sodium of 132, potassium 3.3, chloride 105, CO2 19, BUN is 8, creatinine 1.18, glucose 175, calcium 7.7, magnesium 1.1. Microbiology, no new findings. IMPRESSION: 1. Colitis. The patient was seen by Gastroenterology, Dr. Wells, who recommends to stop antibiotics and try to look for different cause of his colitis. Chemo related versus other noninfectious causes like antibiotic related. Apparently, he was treated prior to this hospitalization with some antibiotic. He is asking for Clostridium difficile toxins and antigen to be repeated again and this is pending. 2. Renal failure, acute on chronic, improved. 3. Chronic atrial fibrillation with controlled ventricular rate. The patient is on flecainide and it looks like his rate improved from 111 to 99 today. 4. Hypertension. We will start him on some of his home medications since his blood pressure started climbing up. Also, the patient was seen by manager knowledge for his right heel decubitus and will follow his recommendations for now and will continue morphine as needed. Job ID: [id number]
[2018-10-12] MEDS ORDERED: Warfarin Sodium 5 MG TAB PO SCH (17:00)
[2018-10-12] MEDS: HumaLOG 300 UNITS/3 ML VIAL SC PRN (17:45)
[2018-10-12] MEDS: Magnesium 2 GM/50 ML 2 GM in Premix Bag 1 BAG IVPB SCH ×2 (17:45→23:20)
[2018-10-12] MEDS: diphenhydrAMINE 25 MG CAP PO SCH (20:35)
[2018-10-13 05:14] LABS: Anion Gap 10 mmol/L (10-20); BUN (Urea Nitrogen) 7 mg/dL (8.4-25.7); Calc. Creatinine Clearance 94 mL/min (70-130); Carbon Dioxide 21 mmol/L (23-31); Chloride 105 mmol/L (98-107); Estimated GFR-MDRD 64; Glucose 121 mg/dL (80-115); Potassium 3.5 mmol/L (3.5-5.1); Sodium 132 mmol/L (136-145)
[2018-10-13] MEDS: Sodium Chloride 0.9% 1,000 ML IV SCH ×3 (05:34→20:50)
[2018-10-13 08:47] LABS: Prothrombin Time 64.5 SEC (12.0-14.7)
[2018-10-13 08:49] LABS: Hemoglobin 9.5 g/dL (14.0-18.0); Mean Corpuscular HGB CONC 34.3 g/dL (32.0-36.0); Mean Corpuscular Hemoglobin 31.9 pg (27.0-31.0); Mean Corpuscular Volume 93.1 fL (78.0-98.0); Platelet Count 153 thou/uL (130-400); RBC Distribution Width 16.5 % (11.5-14.5); Red Blood Cell (RBC) Count 2.97 mill/uL (4.70-6.10); White Blood Cell (WBC) Count 4.1 thou/uL (4.8-10.8)
[2018-10-13 08:52] LABS: INR-International Normal Ratio 7.7
--- NOTE | 2018-10-13 08:56 | PRG ---
DATE OF SERVICE: 10/13/2018 SUBJECTIVE: The patient is seen and examined at bedside. He is feeling somewhat better today. He did physical therapy yesterday. His appetite is coming back. He still has quite a few watery bowel movements, but this is improved from the time when we started him on antidiarrheal medications. He is off antibiotics. OBJECTIVE: VITAL SIGNS: Blood pressure is 138/78, pulse is 88, temperature is 97.5, maximal temperature is 99.2, respiratory rate is 18, and O2 saturation is 96% on room air. HEENT: His head is atraumatic and normocephalic. Eyes, PERRLA. Sclerae are nonicteric. Conjunctivae palish. Oral mucosa is moist. NECK: Supple. No lymphadenopathy. Thyroid is not palpable. LUNGS: Clear. HEART: S1 and S2 are normal. No S3. No S4. No any murmur. ABDOMEN: Obese and not tender. Bowel sounds are present. No organomegaly. EXTREMITIES: No clubbing, cyanosis, or edema. NEUROLOGICAL: He is alert and oriented x4. There is no any motor deficit. LABORATORY DATA: None. MICROBIOLOGY: No new findings. IMPRESSION: 1. Colitis, still unknown etiology and chemo versus antibiotic related. 2. Chronic atrial fibrillation with controlled ventricular rate. The patient will continue on flecainide. 3. Hyper-anticoagulation, most likely related to interaction between antibiotics and Coumadin. Coumadin is stopped. PT and INR are still pending this morning. No signs of bleeding though. 4. Hypertension, controlled. 5. Right heel decubitus. The patient was seen by research and insights executive who recommends just local treatment with povidone and off pressure of his heel. 6. Renal failure, improved. 7. History of recurrent colorectal cancer. 8. Hypomagnesemia and hypokalemia, status post replacement. We will check magnesium level and potassium level this morning along with phosphorus. 9. Diabetes mellitus. His glycemia is down to 120s this morning and it ranges from 120s to 200s. We will continue current regimen on his diabetic coverage and hypertension since thus he is acceptable for this phase of his illness. We will continue PT. We will sit him out of the bed in the chair and continue regimen recommended by historic interpreter. Job ID: [id number]
[2018-10-13 09:02] LABS: ALT (SGPT) 17 U/L (8-55); AST (SGOT) 20 U/L (5-34); Albumin 2.6 g/dL (3.4-4.8); Alkaline Phosphatase 45 U/L (40-150); Anion Gap 12 mmol/L (10-20); BUN (Urea Nitrogen) 6 mg/dL (8.4-25.7); Bilirubin, Total 0.5 mg/dL (0.2-1.2); Calc. Creatinine Clearance 93 mL/min (70-130); Carbon Dioxide 19 mmol/L (23-31); Chloride 104 mmol/L (98-107); Estimated GFR-MDRD 64; Globulin 2.7 g/dL (2.4-3.5); Glucose 155 mg/dL (80-115); Magnesium 1.9 mg/dL (1.6-2.6); Potassium 3.2 mmol/L (3.5-5.1); Protein, Total 5.3 g/dL (5.8-8.1); Sodium 132 mmol/L (136-145)
[2018-10-13] MEDS: metFORMIN 500 MG TAB PO SCH ×2 (09:12→17:05)
[2018-10-13 09:13] LABS: Phosphorus 1.4 mg/dL (2.3-4.7)
[2018-10-13] MEDS: Alogliptin 6.25 MG TAB PO SCH (09:13)
[2018-10-13] MEDS: Gabapentin 300 MG CAP PO SCH ×3 (09:14→20:34)
[2018-10-13] MEDS: Saccharomyces boulardii 250 MG CAP PO SCH (09:14)
[2018-10-13] MEDS: traMADol HCl 50 MG TAB PO SCH (09:18)
[2018-10-13] MEDS: Flecainide 50 MG TAB PO SCH ×2 (10:09→20:32)
[2018-10-13] MEDS ORDERED: Potassium Chloride 20 MEQ in Premix Bag 1 BAG IVPB SCH (10:45)
[2018-10-13] MEDS ORDERED: Potassium Chloride 20 MEQ TAB PO SCH (10:45)
[2018-10-13] MEDS: Diphenoxylate HCl/Atropine Tablet PO SCH ×3 (10:53→20:32)
[2018-10-13 11:06] LABS: Band 20 % (5-11); Dohle Bodies SLIGHT; Eosinophils 6 % (0-10); Lymphocytes 36 % (21-51); MDiff Complete? YES; Monocytes 18 % (0-10); Neutrophil 14 % (42-75); PLT Morphology Comment Appears Adequate; Reactive Lymphocytes 4 % (0-10)
[2018-10-13] MEDS ORDERED: Potassium Phosphate 30 MMOL in Sodium Chloride 0.9% 500 ML IVPB SCH (12:00)
[2018-10-13] MEDS: HumaLOG 300 UNITS/3 ML VIAL SC PRN ×2 (12:32→17:08)
--- NOTE | 2018-10-13 16:32 | PRG ---
DATE OF SERVICE: 10/13/2018 SUBJECTIVE: The patient is feeling better. His appetite has returned. He is eating better. However, his diarrhea is about the same. OBJECTIVE: VITAL SIGNS: Temperature 97.9, pulse 78, respiratory rate 16, blood pressure 143/88. HEENT: Unremarkable. NECK: Supple. CHEST: Clear. CARDIOVASCULAR: Regular rate and rhythm. ABDOMEN: Soft, nontender without organomegaly or masses. LABORATORY DATA: Sodium 132, potassium 3.2, CO2 of 19, BUN 6, glucose 155, albumin 2.6, phosphorus 1.4. ASSESSMENT: Severe diarrhea-multifactorial with previous right hemicolectomy, chemotherapy, and antibiotics. RECOMMENDATIONS: 1. Recheck C. difficile. 2. Continue scheduled Lomotil. 3. May consider Oncology opinion if his diarrhea persists and/or possible flexible sigmoidoscopy. Job ID: [id number]
[2018-10-13] MEDS: K-Phos Neutral 250 MG TAB PO SCH (17:06)
[2018-10-13] MEDS: Morphine 2 MG/ML SYRINGE SLOW IVP PRN (17:24)
[2018-10-13] MEDS: diphenhydrAMINE 25 MG CAP PO SCH (20:32)
[2018-10-14] MEDS: Morphine 2 MG/ML SYRINGE SLOW IVP PRN (01:25)
[2018-10-14 05:20] LABS: Anion Gap 8 mmol/L (10-20); BUN (Urea Nitrogen) 7 mg/dL (8.4-25.7); Calc. Creatinine Clearance 90 mL/min (70-130); Calcium 7.7 mg/dL (7.8-10.44); Carbon Dioxide 21 mmol/L (23-31); Chloride 107 mmol/L (98-107); Estimated GFR-MDRD 62; Glucose 187 mg/dL (80-115); Potassium 3.3 mmol/L (3.5-5.1); Sodium 133 mmol/L (136-145)
[2018-10-14] MEDS: HumaLOG 300 UNITS/3 ML VIAL SC PRN ×3 (06:19→16:53)
[2018-10-14] MEDS: Alogliptin 6.25 MG TAB PO SCH (08:37)
[2018-10-14] MEDS: metFORMIN 500 MG TAB PO SCH ×2 (08:37→16:53)
[2018-10-14] MEDS: Flecainide 50 MG TAB PO SCH ×2 (08:37→20:16)
[2018-10-14] MEDS: K-Phos Neutral 250 MG TAB PO SCH ×2 (08:38→16:52)
[2018-10-14] MEDS: Saccharomyces boulardii 250 MG CAP PO SCH (08:38)
[2018-10-14] MEDS: Gabapentin 300 MG CAP PO SCH ×3 (08:39→20:16)
[2018-10-14] MEDS: traMADol HCl 50 MG TAB PO SCH (08:39)
[2018-10-14] MEDS: Diphenoxylate HCl/Atropine Tablet PO SCH ×3 (08:40→20:16)
[2018-10-14 08:43] LABS: Prothrombin Time 53.9 SEC (12.0-14.7)
[2018-10-14 08:44] LABS: Mean Corpuscular HGB CONC 35.1 g/dL (32.0-36.0); Mean Corpuscular Hemoglobin 32.7 pg (27.0-31.0); Mean Corpuscular Volume 93.3 fL (78.0-98.0); Mean Platelet Volume 6.8 fL (7.4-10.4); Platelet Count 168 thou/uL (130-400); RBC Distribution Width 16.8 % (11.5-14.5); Red Blood Cell (RBC) Count 2.74 mill/uL (4.70-6.10); White Blood Cell (WBC) Count 4.2 thou/uL (4.8-10.8)
[2018-10-14 08:51] LABS: INR-International Normal Ratio 6.1
[2018-10-14 09:02] LABS: ALT (SGPT) 15 U/L (8-55); AST (SGOT) 15 U/L (5-34); Albumin 2.5 g/dL (3.4-4.8); Alkaline Phosphatase 46 U/L (40-150); Bilirubin, Direct 0.2 mg/dL (0.1-0.3); Bilirubin, Total 0.3 mg/dL (0.2-1.2); Magnesium 1.5 mg/dL (1.6-2.6); Protein, Total 5.3 g/dL (5.8-8.1)
[2018-10-14 10:12] LABS: Eosinophils 10 % (0-10); Lymphocytes 45 % (21-51); MDiff Complete? YES; Monocytes 11 % (0-10); Neutrophil 34 % (42-75)
[2018-10-14] MEDS ORDERED: Magnesium Sulfate 4 GM in Sodium Chloride 0.9% 250 ML 250 ML IVPB SCH (10:30)
[2018-10-14] MEDS ORDERED: Potassium Phosphate 30 MMOL in Sodium Chloride 0.9% 500 ML IVPB SCH (10:30)
[2018-10-14] MEDS ORDERED: hydrALAZINE 20 MG/ML VIAL SLOW IVP PRN (10:32)
[2018-10-14] MEDS ORDERED: Cepastat Lozenges 1 LOZ PO PRN (10:32)
[2018-10-14] MEDS ORDERED: Ondansetron PF 4 MG/2 ML Vial IVP PRN (10:32)
[2018-10-14] MEDS ORDERED: Diabetic Tussin 200 MG/10 ML UDCUP PO PRN (10:32)
[2018-10-14] MEDS ORDERED: Eucerin (Mineral Oil/Petrolatum,White) 30 gm Jar TOP PRN (10:32)
[2018-10-14] MEDS ORDERED: Artificial Tears 18 DROP/0.9 ML EA EYE PRN (10:32)
[2018-10-14] MEDS ORDERED: Sodium Chloride 0.65% Nasal 44 ML BOT EA NARE PRN (10:32)
--- NOTE | 2018-10-14 10:32 | PDOC.PN ---
- Subjective Encounter Start Date: 10/14/18 Encounter Start Time: 08:40 -: old records requested/rev Patient seen and examined. No new complaints. No overnight events pt feels better today, no diarrhoea so far today - Objective MAR Reviewed: Yes Vital Signs & Weight: Vital Signs (12 hours) Temp Pulse Resp BP Pulse Ox 10/14/18 08:00 98 10/14/18 07:31 98.6 F 83 16 149/81 H 98 Weight Admit Weight 240 lb Weight 240 lb I&O: 10/13/18 10/14/18 10/15/18 06:59 06:59 06:59 Intake Total 3800 Output Total 6850 2850 Balance -3050 -2850 Result Diagrams: 10/14/18 08:24 10/14/18 04:22 Additional Labs: Accuchecks 10/14/18 10/13/18 10/13/18 05:06 20:21 16:57 POC Glucose 172 H 215 H 242 H 10/13/18 11:33 POC Glucose 227 H Phys Exam - Physical Examination Constitutional: NAD HEENT: PERRLA, moist MMs, sclera anicteric, oral pharynx no lesions Neck: no JVD, supple Respiratory: no wheezing, no rales, no rhonchi Cardiovascular: RRR, no significant murmur, no rub Gastrointestinal: soft, non-tender, no distention, positive bowel sounds Musculoskeletal: no edema, pulses present Lymphatic: no nodes Psychiatric: normal affect Skin: no rash, normal turgor Dx/Plan (1) Colitis Code(s): K52.9 - NONINFECTIVE GASTROENTERITIS AND COLITIS, UNSPECIFIED Status : Acute (2) Hypokalemia Code(s): E87.6 - HYPOKALEMIA Status: Acute (3) Hypomagnesemia Code(s): E83.42 - HYPOMAGNESEMIA Status: Acute (4) Hypophosphatemia Code(s): E83.39 - OTHER DISORDERS OF PHOSPHORUS METABOLISM Status: Acute (5) Chronic anticoagulation Code(s): Z79.01 - WEIGHT LOSS COUNSELOR (CURRENT) USE OF ANTICOAGULANTS Status: Chronic (6) Leucopenia Code(s): D72.819 - DECREASED WHITE BLOOD CELL COUNT, UNSPECIFIED Status: Acute (7) Liver metastases Code(s): C78.7 - SECONDARY MALIG NEOPLASM OF LIVER AND INTRAHEPATIC BILE DUCT Status: Acute (8) Anemia of chronic disease Code(s): D63.8 - ANEMIA IN OTHER CHRONIC DISEASES CLASSIFIED ELSEWHERE Status : Chronic (9) Anxiety and depression Code(s): F41.9 - ANXIETY DISORDER, UNSPECIFIED; F32.9 - MAJOR DEPRESSIVE DISORDER, SINGLE EPISODE, UNSPECIFIED Status: Chronic (10) Atrial fibrillation Code(s): I48.91 - UNSPECIFIED ATRIAL FIBRILLATION Status: Chronic Qualifiers: (11) CKD (chronic kidney disease) stage 3, GFR 30-59 ml/min Code(s): N18.3 - CHRONIC KIDNEY DISEASE, STAGE 3 (MODERATE) Status: Chronic (12) Decubitus ulcer of right heel Code(s): L89.619 - PRESSURE ULCER OF RIGHT HEEL, UNSPECIFIED STAGE Status: Chronic (13) Diabetes type 2, uncontrolled Code(s): E11.65 - TYPE 2 DIABETES MELLITUS WITH HYPERGLYCEMIA Status: Chronic Comment: (14) H/O malignant neoplasm of colon Code(s): Z85.038 - PERSONAL HISTORY OF MALIGNANT NEOPLASM OF LARGE INTESTINE Status: Chronic (15) Hypertension Code(s): I10 - ESSENTIAL (PRIMARY) HYPERTENSION Status: Chronic Qualifiers: (16) ESE (obstructive sleep apnea) Code(s): G47.33 - OBSTRUCTIVE SLEEP APNEA (ADULT) (PEDIATRIC) Status: Chronic (17) Obesity (BMI 30-39.9) Code(s): E66.9 - OBESITY, UNSPECIFIED Status: Chronic - Plan cont current plan of care * replace potassium phosphate * replace magnesium sulfate * medication reviewed as below * symptomatic treatment * DC IVF * monitor today * will consider discharge on tuesday. Review of Systems - Review of Systems ENT: negative: Ear Pain, Ear Discharge, Nose Pain, Nose Discharge, Nose Congestion, Mouth Pain, Mouth Swelling, Throat Pain, Throat Swelling, Other Respiratory: negative: Cough, Dry, Shortness of Breath, Hemoptysis, SOB with Excertion, Pleuritic Pain, Sputum, Wheezing Cardiovascular: negative: chest pain, palpitations, orthopnea, paroxysmal nocturnal dyspnea, edema, light headedness, other Gastrointestinal: negative: Nausea, Vomiting, Abdominal Pain, Diarrhea, Constipation, Melena, Hematochezia, Other Genitourinary: negative: Dysuria, Frequency, Incontinence, Hematuria, Retention , Other Musculoskeletal: negative: Neck Pain, Shoulder Pain, Arm Pain, Back Pain, Hand Pain, Leg Pain, Foot Pain, Other Skin: negative: Rash, Lesions, Mir, Bruising, Other - Medications/Allergies Allergies/Adverse Reactions: Allergies Allergy/AdvReac Type Severity Reaction Status Date / Time No Known Allergies Allergy Verified 10/10/18 07:45 Medications: Current Medications Alogliptin Benzoate (Alogliptin) 12.5 mg PO DAILY [facility] Last Admin: 10/14/18 08:37 Dose: 12.5 mg Colestipol HCl (Colestid) 1 gm PO AC [facility] Last Admin: 10/14/18 08:39 Dose: 1 gm Dextrose/Water (Dextrose 50%) 25 gm SLOW IVP PRN PRN PRN Reason: Hypoglycemia Diphenhydramine HCl (Benadryl) 50 mg PO HS [facility] Last Admin: 10/13/18 20:32 Dose: 50 mg Diphenoxylate HCl/Atropine (Lomotil) 2 tab PO TID [facility] Last Admin: 10/14/18 08:40 Dose: 2 tab Flecainide Acetate (Tambocor) 100 mg PO BID [facility] Last Admin: 10/14/18 08:37 Dose: 100 mg Gabapentin (Neurontin) 300 mg PO 0900,1200 [facility] Last Admin: 10/14/18 08:39 Dose: 300 mg Gabapentin (Neurontin) 600 mg PO HS [facility] Last Admin: 10/13/18 20:34 Dose: 600 mg Glucagon (Glucagon) 1 mg IM PRN PRN PRN Reason: Hypoglycemia Dextrose/Water (D5w) 1,000 mls @ 0 mls/hr IV .Q0M PRN PRN Reason: Hypoglycemia Sodium Chloride (Normal Saline 0.9%) 1,000 mls @ 70 mls/hr IV .[id number] [facility] Last Admin: 10/13/18 20:50 Dose: 1,000 mls Magnesium Sulfate 4 gm/ Sodium (Chloride) 258 mls @ 86 mls/hr IVPB ONE [facility] Potassium Phosphate 30 mmol/ (Sodium Chloride) 510 mls @ 83.3 mls/hr IVPB ONE [facility] Insulin Human Lispro (Humalog) 0 units SC .MILD SLIDING SCALE PRN PRN Reason: Mild Correctional Scale Last Admin: 10/14/18 06:19 Dose: 2 unit Melatonin (Melatonin) 1.5 mg PO HS PRN PRN Reason: Insomnia Metformin HCl (Glucophage) 1,000 mg PO BID-[facility] Last Admin: 10/14/18 08:37 Dose: 1,000 mg Metoprolol Succinate (Toprol Xl) 12.5 mg PO BID [facility] Last Admin: 10/14/18 08:38 Dose: 12.5 mg Morphine Sulfate (Morphine) 2 mg SLOW IVP Q4H PRN PRN Reason: Pain Last Admin: 10/14/18 01:25 Dose: 2 mg Ondansetron HCl (Zofran Odt) 8 mg PO Q8H PRN PRN Reason: Nausea/Vomiting Phosphorus (Kphos Neutral) 250 mg PO BID-[facility] Last Admin: 10/14/18 08:38 Dose: 250 mg Prochlorperazine Maleate (Compazine) 0 mg PO Q6H PRN PRN Reason: Insomnia Saccharomyces Boulardii (Florastor) 250 mg PO DAILY [facility] Last Admin: 10/14/18 08:38 Dose: 250 mg Tramadol HCl (Ultram) 50 mg PO DAILY [facility] Last Admin: 10/14/18 08:39 Dose: 50 mg
[2018-10-14] MEDS: diphenhydrAMINE 25 MG CAP PO SCH (20:16)
--- NOTE | 2018-10-14 22:22 | PRG ---
DATE OF SERVICE: 10/14/2018 REASON FOR CONSULTATION: Chronic diarrhea. SUBJECTIVE: The patient states that he is doing better today with no difficulty eating solid food, with return of his appetite over the last 24 to 48 hours. However, he states that despite the administration of Lomotil on a more frequent basis, he still has approximately 6-7 semi-solid or liquid bowel movements per day. Currently, he denies any nausea, vomiting, fevers, chills, constipation, or GI bleeding. OBJECTIVE: VITAL SIGNS: Temperature 97.7, pulse 88, blood pressure 154/85, respiratory rate 18, saturating 98% on room air. GENERAL: The patient was lying in bed, in no acute distress. Alert and oriented x4. CARDIOVASCULAR: Regular rate and rhythm. RESPIRATORY: Clear to auscultation bilaterally. ABDOMEN: Normoactive bowel sounds. Soft. Tenderness to palpation in the midepigastric and periumbilical regions. EXTREMITIES: No cyanosis, clubbing, or edema. LABORATORY DATA: No current studies are available for review. IMAGING DATA: No current GI imaging is available for review. ASSESSMENT AND PLAN: The patient is a 68-year-old male with a past medical history of obstructive sleep apnea, obesity, chronic kidney disease, restless legs syndrome, hypertension, chronic atrial fibrillation, status post ablation x2, and recurrent colon cancer, status post right hemicolectomy and more recently with metastatic colon cancer, on chemotherapy, presenting with increased chronic diarrhea. Chronic diarrhea. The patient is presenting with a prior history of colon cancer for which he underwent a right hemicolectomy, but had recurrence of the cancer and now with evidence of metastatic disease based on most recent gastrointestinal imaging. However, since the institution of chemotherapy as part of treatment for the metastatic colon cancer, he has been having chronic diarrhea, characterized as having anywhere between 6 and 8 semi-solid to liquid bowel movements per day, resulting in increased dehydration requiring increased IV fluid administration. Infectious stool studies obtained during this admission were positive for inflammatory markers (fecal lactoferrin), but negative for any obvious pathogen (including C diff). At this point, the origin of his diarrhea could be multifactorial in that the differential could include bile acid diarrhea (after having a cholecystectomy), chemotherapy-induced diarrhea, antibiotic-induced diarrhea, microscopic colitis (less likely), and/or extension of metastatic colon cancer. RECOMMENDATIONS: 1. Would continue to monitor clinically for continued diarrhea. 2. Would consider consultation of Oncology tomorrow for re-evaluation of this patient in light of recent chemotherapy and diarrhea possibly associated with administration resulting in mucositis. 3. Continue scheduled Lomotil for antidiarrheal agent. 4. We will add probiotic to his regimen in an attempt to slow the diarrhea frequency. Would also consider the addition of Citrucel 500 mg daily as part of a bulking-type maneuver. We will continue to follow. Please call with any questions. Job ID: [id number]
[2018-10-15] MEDS: HumaLOG 300 UNITS/3 ML VIAL SC PRN ×3 (06:21→17:13)
[2018-10-15] MEDS: K-Phos Neutral 250 MG TAB PO SCH ×2 (08:18→17:12)
[2018-10-15] MEDS: Flecainide 50 MG TAB PO SCH ×2 (08:18→20:18)
[2018-10-15] MEDS: metFORMIN 500 MG TAB PO SCH ×2 (08:18→17:12)
[2018-10-15] MEDS: Alogliptin 6.25 MG TAB PO SCH (08:18)
[2018-10-15] MEDS: Gabapentin 300 MG CAP PO SCH ×3 (08:19→20:18)
[2018-10-15] MEDS: Saccharomyces boulardii 250 MG CAP PO SCH (08:19)
[2018-10-15] MEDS: traMADol HCl 50 MG TAB PO SCH (08:19)
[2018-10-15] MEDS: Diphenoxylate HCl/Atropine Tablet PO SCH ×3 (08:19→20:18)
[2018-10-15 08:23] LABS: Prothrombin Time 42.4 SEC (12.0-14.7)
[2018-10-15 08:31] LABS: INR-International Normal Ratio 4.5
[2018-10-15 08:43] LABS: Hemoglobin 8.9 g/dL (14.0-18.0); Mean Corpuscular HGB CONC 34.2 g/dL (32.0-36.0); Mean Corpuscular Hemoglobin 31.5 pg (27.0-31.0); Mean Corpuscular Volume 92.1 fL (78.0-98.0); Mean Platelet Volume 6.8 fL (7.4-10.4); Platelet Count 208 thou/uL (130-400); RBC Distribution Width 16.5 % (11.5-14.5); Red Blood Cell (RBC) Count 2.83 mill/uL (4.70-6.10); White Blood Cell (WBC) Count 4.5 thou/uL (4.8-10.8)
[2018-10-15] MEDS ORDERED: Saccharomyces boulardii 250 MG CAP PO SCH (09:00)
[2018-10-15 09:02] LABS: ALT (SGPT) 17 U/L (8-55); AST (SGOT) 19 U/L (5-34); Albumin 2.7 g/dL (3.4-4.8); Alkaline Phosphatase 57 U/L (40-150); Anion Gap 13 mmol/L (10-20); BUN (Urea Nitrogen) 4 mg/dL (8.4-25.7); Bilirubin, Total 0.3 mg/dL (0.2-1.2); Calc. Creatinine Clearance 106 mL/min (70-130); Calcium 8.3 mg/dL (7.8-10.44); Carbon Dioxide 20 mmol/L (23-31); Chloride 105 mmol/L (98-107); Estimated GFR-MDRD 74; Globulin 2.9 g/dL (2.4-3.5); Glucose 200 mg/dL (80-115); Magnesium 1.6 mg/dL (1.6-2.6); Phosphorus 3.2 mg/dL (2.3-4.7); Potassium 3.5 mmol/L (3.5-5.1); Protein, Total 5.6 g/dL (5.8-8.1); Sodium 134 mmol/L (136-145)
[2018-10-15 10:07] LABS: Eosinophils 10 % (0-10); Hypochromia SLIGHT = 6-15 cells (100X) (0-5/hpf); Lymphocytes 31 % (21-51); MDiff Complete? YES; Microcytosis SLIGHT = 6-15 cells (100X) (0-5/hpf); Monocytes 25 % (0-10); Neutrophil 32 % (42-75); PLT Morphology Comment Appears Adequate; Polychromasia SLIGHT = 2-3 cells (100X) (0-2/hpf); Reactive Lymphocytes 2 % (0-10)
--- NOTE | 2018-10-15 10:46 | PDOC.PN ---
- Subjective Encounter Start Date: 10/15/18 Encounter Start Time: 08:30 pt still has diarrhoea, yesterday he had 7 BM Patient seen and examined. No overnight events - Objective MAR Reviewed: Yes Vital Signs & Weight: Vital Signs (12 hours) Temp Pulse Resp BP Pulse Ox 10/15/18 08:00 97.9 F 88 18 155/83 H 98 Weight Admit Weight 240 lb Weight 240 lb I&O: 10/14/18 10/15/18 10/16/18 06:59 06:59 06:59 Intake Total 2326 Output Total 5265 0043 Balance -3882 -5744 Result Diagrams: 10/15/18 08:00 10/15/18 08:00 Additional Labs: Accuchecks 10/15/18 10/14/18 10/14/18 04:44 20:16 16:29 POC Glucose 201 H 197 H 235 H 10/14/18 11:44 POC Glucose 201 H Phys Exam - Physical Examination Constitutional: NAD HEENT: PERRLA, moist MMs, sclera anicteric Neck: no JVD, supple Respiratory: no wheezing, no rales, no rhonchi Cardiovascular: no significant murmur, no rub, irregular Gastrointestinal: soft, non-tender, no distention, positive bowel sounds Musculoskeletal: no edema, pulses present Neurological: moves all 4 limbs Lymphatic: no nodes Psychiatric: normal affect, A&O x 3 Skin: no rash, normal turgor Dx/Plan (1) Colitis Code(s): K52.9 - NONINFECTIVE GASTROENTERITIS AND COLITIS, UNSPECIFIED Status : Acute (2) Hypokalemia Code(s): E87.6 - HYPOKALEMIA Status: Resolved (3) Hypomagnesemia Code(s): E83.42 - HYPOMAGNESEMIA Status: Resolved (4) Hypophosphatemia Code(s): E83.39 - OTHER DISORDERS OF PHOSPHORUS METABOLISM Status: Resolved (5) Chronic anticoagulation Code(s): Z79.01 - PR[employer] (CURRENT) USE OF ANTICOAGULANTS Status: Chronic (6) Leucopenia Code(s): D72.819 - DECREASED WHITE BLOOD CELL COUNT, UNSPECIFIED Status: Acute (7) Liver metastases Code(s): C78.7 - SECONDARY MALIG NEOPLASM OF LIVER AND INTRAHEPATIC BILE DUCT Status: Acute (8) Anemia of chronic disease Code(s): D63.8 - ANEMIA IN OTHER CHRONIC DISEASES CLASSIFIED ELSEWHERE Status : Chronic (9) Anxiety and depression Code(s): F41.9 - ANXIETY DISORDER, UNSPECIFIED; F32.9 - MAJOR DEPRESSIVE DISORDER, SINGLE EPISODE, UNSPECIFIED Status: Chronic (10) Atrial fibrillation Code(s): I48.91 - UNSPECIFIED ATRIAL FIBRILLATION Status: Chronic Qualifiers: Atrial fibrillation type: chronic Qualified Code(s): I48.2 - Chronic atrial fibrillation (11) CKD (chronic kidney disease) stage 3, GFR 30-59 ml/min Code(s): N18.3 - CHRONIC KIDNEY DISEASE, STAGE 3 (MODERATE) Status: Chronic (12) Decubitus ulcer of right heel Code(s): L89.619 - PRESSURE ULCER OF RIGHT HEEL, UNSPECIFIED STAGE Status: Chronic (13) Diabetes type 2, uncontrolled Code(s): E11.65 - TYPE 2 DIABETES MELLITUS WITH HYPERGLYCEMIA Status: Chronic Comment: (14) H/O malignant neoplasm of colon Code(s): Z85.038 - PERSONAL HISTORY OF MALIGNANT NEOPLASM OF LARGE INTESTINE Status: Chronic (15) Hypertension Code(s): I10 - ESSENTIAL (PRIMARY) HYPERTENSION Status: Chronic Qualifiers: (16) ESE (obstructive sleep apnea) Code(s): G47.33 - OBSTRUCTIVE SLEEP APNEA (ADULT) (PEDIATRIC) Status: Chronic (17) Obesity (BMI 30-39.9) Code(s): E66.9 - OBESITY, UNSPECIFIED Status: Chronic (18) Warfarin-induced coagulopathy Code(s): D68.32 - HEMORRHAGIC DISORD D/T EXTRINSIC CIRCULATING ANTICOAGULANTS; T45.515A - ADVERSE EFFECT OF ANTICOAGULANTS, INITIAL ENCOUNTER Status: Acute - Plan cont current plan of care * medication reviewed as below * symptomatic treatment * continue lomotil, add citrucel * will consult Dr Huff as per GI recommendation * will monitor. * INR improving, he doses not have any bleeding Review of Systems - Review of Systems ENT: negative: Ear Pain, Ear Discharge, Nose Pain, Nose Discharge, Nose Congestion, Mouth Pain, Mouth Swelling, Throat Pain, Throat Swelling, Other Respiratory: negative: Cough, Dry, Shortness of Breath, Hemoptysis, SOB with Excertion, Pleuritic Pain, Sputum, Wheezing Cardiovascular: negative: chest pain, palpitations, orthopnea, paroxysmal nocturnal dyspnea, edema, light headedness, other Gastrointestinal: Diarrhea. negative: Nausea, Vomiting, Abdominal Pain, Constipation, Melena, Hematochezia, Other Genitourinary: negative: Dysuria, Frequency, Incontinence, Hematuria, Retention , Other Musculoskeletal: negative: Neck Pain, Shoulder Pain, Arm Pain, Back Pain, Hand Pain, Leg Pain, Foot Pain, Other Skin: negative: Rash, Lesions, Mir, Bruising, Other - Medications/Allergies Allergies/Adverse Reactions: Allergies Allergy/AdvReac Type Severity Reaction Status Date / Time No Known Allergies Allergy Verified 10/10/18 07:45 Medications: Current Medications Alogliptin Benzoate (Alogliptin) 12.5 mg PO DAILY [facility] Last Admin: 10/15/18 08:18 Dose: 12.5 mg Artificial Tears (Tears Naturale) 2 drop EA EYE PRN PRN PRN Reason: Dry Eyes Colestipol HCl (Colestid) 1 gm PO [facility] Last Admin: 10/15/18 08:18 Dose: 1 gm Dextrose/Water (Dextrose 50%) 25 gm SLOW IVP PRN PRN PRN Reason: Hypoglycemia Diphenhydramine HCl (Benadryl) 50 mg PO [facility] Last Admin: 10/14/18 20:16 Dose: 50 mg Diphenoxylate HCl/Atropine (Lomotil) 2 tab PO TID [facility] Last Admin: 10/15/18 08:19 Dose: 2 tab Flecainide Acetate (Tambocor) 100 mg PO BID [facility] Last Admin: 10/15/18 08:18 Dose: 100 mg Gabapentin (Neurontin) 300 mg PO 0900,1200 [facility] Last Admin: 10/15/18 08:19 Dose: 300 mg Gabapentin (Neurontin) 600 mg PO [facility] Last Admin: 10/14/18 20:16 Dose: 600 mg Glucagon (Glucagon) 1 mg IM PRN PRN PRN Reason: Hypoglycemia Guaifenesin (Robitussin Sf) 200 mg PO Q4H PRN PRN Reason: Cough Hydralazine HCl (Apresoline) 10 mg SLOW IVP Q4H PRN PRN Reason: SBP > 180 and HR < 70 Dextrose/Water (D5w) 1,000 mls @ 0 mls/hr IV .Q0M PRN PRN Reason: Hypoglycemia Insulin Human Lispro (Humalog) 0 units SC .MILD SLIDING SCALE PRN PRN Reason: Mild Correctional Scale Last Admin: 10/15/18 06:21 Dose: 2 unit Melatonin (Melatonin) 1.5 mg PO HS PRN PRN Reason: Insomnia Metformin [facility] ([facility]) [facility] Last Admin: 10/15/18 08:18 Dose: 1,000 mg Metoprolol Succinate (Toprol Xl) 12.5 mg PO BID [facility] Last Admin: 10/15/18 08:19 Dose: 12.5 mg Mineral Oil/White Petrolatum (Eucerin Cream) 0 gm TOP BIDPRN PRN PRN Reason: Dry Skin Morphine Sulfate (Morphine) 2 mg SLOW IVP Q4H PRN PRN Reason: Pain Last Admin: 10/14/18 01:25 Dose: 2 mg Ondansetron HCl (Zofran Odt) 8 mg PO Q8H PRN PRN Reason: Nausea/Vomiting Ondansetron HCl (Zofran) 4 mg IVP Q6H PRN PRN Reason: Nausea/Vomiting Phosphorus (Kphos Neutral) [facility] Last Admin: 10/15/18 08:18 Dose: 250 mg Prochlorperazine Maleate (Compazine) 0 mg PO Q6H PRN PRN Reason: Insomnia Saccharomyces Boulardii (Florastor) 250 mg PO DAILY [facility] Last Admin: 10/15/18 08:19 Dose: 250 mg Sodium Chloride ([place] Nasal [place] 0.65%) 0 ml EA NARE QIDPRN PRN PRN Reason: Nasal Congestion Throat Lozenges (Cepastat Lozenges) 1 ghada PO Q2H PRN PRN Reason: Sore Throat Tramadol HCl (Ultram) 50 mg PO DAILY [facility] Last Admin: 10/15/18 08:19 Dose: 50 mg
[2018-10-15] MEDS ORDERED: Citrucel 500 MG TAB PO SCH ×2 (11:30→15:00)
--- NOTE | 2018-10-15 11:55 | PRG ---
DATE OF SERVICE: 10/15/2018 REASON FOR CONSULTATION: Chronic diarrhea. SUBJECTIVE: The patient states that he is relatively unchanged when compared to his status yesterday. He had approximately 6 to 7 semi-solid liquid bowel movements over the last 24 hours despite the administration of Lomotil and colestipol. He had not received a fiber supplementation as of yet. He does endorse some mild abdominal discomfort, but otherwise denies any nausea, vomiting, fevers, chills, constipation, or GI bleeding. OBJECTIVE: VITAL SIGNS: Temperature 97.9, pulse 88, blood pressure 155/83, respiratory rate 18, saturating 98% on room air. GENERAL: The patient is lying in bed, in no acute distress. Alert and oriented x4. CARDIOVASCULAR: Regular rate and rhythm. RESPIRATORY: Clear to auscultation bilaterally. ABDOMEN: Normoactive bowel sounds. Soft. Mild abdominal distention, tenderness to palpation in the midepigastric and periumbilical regions. EXTREMITIES: No cyanosis, clubbing, or edema. LABORATORY DATA: No current studies are available for review. IMAGING DATA: No current GI imaging is available for review. ASSESSMENT AND PLAN: The patient is a 68-year-old male with past medical history of obstructive sleep apnea, obesity, chronic kidney disease, restless legs syndrome, hypertension, chronic atrial fibrillation, status post ablation x2, and recurrent colon cancer with evidence of metastatic disease (on chemotherapy), presenting with increased chronic diarrhea. 1. Chronic diarrhea. The patient is presenting with a prior history of colon cancer, for which he underwent a right hemicolectomy, but did have a recurrence of the cancer in the postoperative period with surveillance measures years later, now with evidence of metastatic disease based on most recent gastrointestinal imaging. He was subsequently placed on chemotherapy as part of his treatment for metastatic colon cancer and has been having chronic diarrhea, since then characterizes having anywhere between 6 to 8 semi-solid stool liquid bowel movements per day resulting in dehydration and requiring increased IV fluid administration. Infectious stool studies obtained during this admission were negative for an infectious etiology. He was placed on bile acid sequestrants (colestipol) with no improvement in his diarrhea. Addition of atropine/diphenoxylate also has not resulted in a significant decrease in the frequency of diarrhea like bowel movements he is having. At this point, the differential could include bile acid diarrhea, chemotherapy-induced diarrhea, antibiotic-induced diarrhea, microscopic colitis and/or extension/worsening of metastatic colon cancer contributing to diarrhea. RECOMMENDATIONS: 1. We would continue to monitor clinically for continued diarrhea despite attempts to slow down his stooling frequency. 2. We will consult Oncology Service for evaluation of the patient and weigh in on whether or not the chemotherapy could be causing this chronic diarrhea resulting in mucositis. 3. Continue scheduled Lomotil as an antidiarrheal agent. 4. We will transfer patient from colestipol to cholestyramine for possible bile acid diarrhea. 5. We will add Citrucel 500 mg daily as part of a bulking type maneuver. 6. If the patient is having continued diarrhea despite the above measures, we will plan for possible flexible sigmoidoscopy tomorrow for further evaluation. We will continue to follow. Please call with any questions. Job ID: [id number]
[2018-10-15] MEDS: diphenhydrAMINE 25 MG CAP PO SCH (20:17)
[2018-10-15] MEDS: Cholestyramine/Aspartame 4 gm Packet PO SCH (20:19)
[2018-10-16] MEDS: Flecainide 50 MG TAB PO SCH ×2 (08:32→21:42)
[2018-10-16] MEDS: metFORMIN 500 MG TAB PO SCH ×2 (08:32→16:34)
[2018-10-16] MEDS: Saccharomyces boulardii 250 MG CAP PO SCH (08:33)
[2018-10-16] MEDS: traMADol HCl 50 MG TAB PO SCH (08:33)
[2018-10-16] MEDS: K-Phos Neutral 250 MG TAB PO SCH ×2 (08:33→16:34)
[2018-10-16] MEDS: Citrucel 500 MG TAB PO SCH (08:33)
[2018-10-16] MEDS: Diphenoxylate HCl/Atropine Tablet PO SCH ×3 (08:33→21:42)
[2018-10-16] MEDS: Alogliptin 6.25 MG TAB PO SCH (08:33)
[2018-10-16] MEDS: Gabapentin 300 MG CAP PO SCH ×3 (08:34→21:44)
[2018-10-16] MEDS: Cholestyramine/Aspartame 4 gm Packet PO SCH ×2 (11:10→21:46)
--- NOTE | 2018-10-16 11:25 | PDOC.PN ---
- Subjective Encounter Start Date: 10/16/18 Encounter Start Time: 07:15 he had 4-5 BM yesterday, no fever, today plan for flex sigmoidoscopy Patient seen and examined. No new complaints. No overnight events - Objective MAR Reviewed: Yes Vital Signs & Weight: Vital Signs (12 hours) Temp Pulse Resp BP Pulse Ox 10/16/18 08:00 97.4 F L 77 18 149/82 H 98 Weight Admit Weight 240 lb Weight 240 lb I&O: 10/15/18 10/16/18 10/17/18 06:59 06:59 06:59 Intake Total 2326 1000 Output Total 4870 3670 675 Balance -2544 -2670 -675 Result Diagrams: 10/15/18 08:00 10/15/18 08:00 Additional Labs: Accuchecks 10/16/18 10/16/18 10/15/18 10:50 04:29 19:54 POC Glucose 198 H 156 H 226 H 10/15/18 10/15/18 16:44 11:38 POC Glucose 232 H 194 H Phys Exam - Physical Examination Constitutional: NAD HEENT: PERRLA, moist MMs, sclera anicteric Neck: no JVD, supple Respiratory: no wheezing, no rales, no rhonchi Cardiovascular: RRR, no significant murmur, no rub Gastrointestinal: soft, non-tender, no distention, positive bowel sounds Musculoskeletal: no edema, pulses present Neurological: moves all 4 limbs Lymphatic: no nodes Psychiatric: normal affect, A&O x 3 Skin: no rash, normal turgor Dx/Plan (1) Colitis Code(s): K52.9 - NONINFECTIVE GASTROENTERITIS AND COLITIS, UNSPECIFIED Status : Acute (2) Hypokalemia Code(s): E87.6 - HYPOKALEMIA Status: Resolved (3) Hypomagnesemia Code(s): E83.42 - HYPOMAGNESEMIA Status: Resolved (4) Hypophosphatemia Code(s): E83.39 - OTHER DISORDERS OF PHOSPHORUS METABOLISM Status: Resolved (5) Chronic anticoagulation Code(s): Z79.01 - HALF-WAY (CURRENT) USE OF ANTICOAGULANTS Status: Chronic (6) Leucopenia Code(s): D72.819 - DECREASED WHITE BLOOD CELL COUNT, UNSPECIFIED Status: Acute (7) Liver metastases Code(s): C78.7 - SECONDARY MALIG NEOPLASM OF LIVER AND INTRAHEPATIC BILE DUCT Status: Acute (8) Anemia of chronic disease Code(s): D63.8 - ANEMIA IN OTHER CHRONIC DISEASES CLASSIFIED ELSEWHERE Status : Chronic (9) Anxiety and depression Code(s): F41.9 - ANXIETY DISORDER, UNSPECIFIED; F32.9 - MAJOR DEPRESSIVE DISORDER, SINGLE EPISODE, UNSPECIFIED Status: Chronic (10) Atrial fibrillation Code(s): I48.91 - UNSPECIFIED ATRIAL FIBRILLATION Status: Chronic Qualifiers: Atrial fibrillation type: chronic Qualified Code(s): I48.2 - Chronic atrial fibrillation (11) CKD (chronic kidney disease) stage 3, GFR 30-59 ml/min Code(s): N18.3 - CHRONIC KIDNEY DISEASE, STAGE 3 (MODERATE) Status: Chronic (12) Decubitus ulcer of right heel Code(s): L89.619 - PRESSURE ULCER OF RIGHT HEEL, UNSPECIFIED STAGE Status: Chronic (13) Diabetes type 2, uncontrolled Code(s): E11.65 - TYPE 2 DIABETES MELLITUS WITH HYPERGLYCEMIA Status: Chronic Comment: (14) H/O malignant neoplasm of colon Code(s): Z85.038 - PERSONAL HISTORY OF MALIGNANT NEOPLASM OF LARGE INTESTINE Status: Chronic (15) Hypertension Code(s): I10 - ESSENTIAL (PRIMARY) HYPERTENSION Status: Chronic Qualifiers: (16) ESE (obstructive sleep apnea) Code(s): G47.33 - OBSTRUCTIVE SLEEP APNEA (ADULT) (PEDIATRIC) Status: Chronic (17) Obesity (BMI 30-39.9) Code(s): E66.9 - OBESITY, UNSPECIFIED Status: Chronic (18) Warfarin-induced coagulopathy Code(s): D68.32 - HEMORRHAGIC DISORD D/T EXTRINSIC CIRCULATING ANTICOAGULANTS; T45.515A - ADVERSE EFFECT OF ANTICOAGULANTS, INITIAL ENCOUNTER Status: Acute - Plan cont current plan of care * today plan for sigmoidoscopy * his diarrhoea likely related with post chemotherapy * he needs symptomatic treatment * medication reviewed as below * symptomatic treatment * discharge soon. Review of Systems - Review of Systems Constitutional: negative: fever, chills, sweats, weakness, malaise, other Eyes: negative: Pain, Vision Change, Conjunctivae Inflammation, Eyelid Inflammation, Redness, Other ENT: negative: Ear Pain, Ear Discharge, Nose Pain, Nose Discharge, Nose Congestion, Mouth Pain, Mouth Swelling, Throat Pain, Throat Swelling, Other Respiratory: negative: Cough, Dry, Shortness of Breath, Hemoptysis, SOB with Excertion, Pleuritic Pain, Sputum, Wheezing Cardiovascular: negative: chest pain, palpitations, orthopnea, paroxysmal nocturnal dyspnea, edema, light headedness, other Gastrointestinal: Diarrhea. negative: Nausea, Vomiting, Abdominal Pain, Constipation, Melena, Hematochezia, Other Genitourinary: negative: Dysuria, Frequency, Incontinence, Hematuria, Retention , Other Musculoskeletal: negative: Neck Pain, Shoulder Pain, Arm Pain, Back Pain, Hand Pain, Leg Pain, Foot Pain, Other Skin: negative: Rash, Lesions, Mir, Bruising, Other - Medications/Allergies Allergies/Adverse Reactions: Allergies Allergy/AdvReac Type Severity Reaction Status Date / Time No Known Allergies Allergy Verified 10/10/18 07:45 Medications: Current Medications Alogliptin Benzoate (Alogliptin) 12.5 mg PO DAILY [facility] Last Admin: 10/16/18 08:33 Dose: 12.5 mg Artificial Tears (Tears Naturale) 2 drop EA EYE PRN PRN PRN Reason: Dry Eyes Cholestyramine Resin (Questran Light) 4 gm PO 1000,2200 [facility] Last Admin: 10/16/18 11:10 Dose: Not Given Dextrose/Water (Dextrose 50%) 25 gm SLOW IVP PRN PRN PRN Reason: Hypoglycemia Diphenhydramine HCl (Benadryl) 50 mg PO HS [facility] Last Admin: 10/15/18 20:17 Dose: 50 mg Diphenoxylate HCl/Atropine (Lomotil) 2 tab PO TID [facility] Last Admin: 10/16/18 08:33 Dose: 2 tab Flecainide Acetate (Tambocor) 100 mg PO BID [facility] Last Admin: 10/16/18 08:32 Dose: 100 mg Gabapentin (Neurontin) 300 mg PO 0900,1200 [facility] Last Admin: 10/16/18 08:34 Dose: 300 mg Gabapentin (Neurontin) 600 mg PO HS [facility] Last Admin: 10/15/18 20:18 Dose: 600 mg Glucagon (Glucagon) 1 mg IM PRN PRN PRN Reason: Hypoglycemia Guaifenesin (Robitussin Sf) 200 mg PO Q4H PRN PRN Reason: Cough Hydralazine HCl (Apresoline) 10 mg SLOW IVP Q4H PRN PRN Reason: SBP > 180 and HR < 70 Dextrose/Water (D5w) 1,000 mls @ 0 mls/hr IV .Q0M PRN PRN Reason: Hypoglycemia Insulin Human Lispro (Humalog) 0 units SC .MILD SLIDING SCALE PRN PRN Reason: Mild Correctional Scale Last Admin: 10/15/18 17:13 Dose: 3 unit Melatonin (Melatonin) 1.5 mg PO HS PRN PRN Reason: Insomnia Metformin HCl (Glucophage) 1,000 mg PO BID[facility] Last Admin: 10/16/18 08:32 Dose: 1,000 mg Methylcellulose (Citrucel) 500 mg PO DAILY [facility] Last Admin: 10/16/18 08:33 Dose: 500 mg Metoprolol Succinate (Toprol Xl) 12.5 mg PO BID [facility] Last Admin: 10/16/18 08:34 Dose: 12.5 mg Mineral Oil/White Petrolatum (Eucerin Cream) 0 gm TOP BIDPRN PRN PRN Reason: Dry Skin Morphine Sulfate (Morphine) 2 mg SLOW IVP Q4H PRN PRN Reason: Pain Last Admin: 10/14/18 01:25 Dose: 2 mg Ondansetron HCl (Zofran Odt) 8 mg PO Q8H PRN PRN Reason: Nausea/Vomiting Ondansetron HCl (Zofran) 4 mg IVP Q6H PRN PRN Reason: Nausea/Vomiting Phosphorus (Kphos Neutral) 250 mg PO BID[facility] Last Admin: 10/16/18 08:33 Dose: 250 mg Prochlorperazine Maleate (Compazine) 0 mg PO Q6H PRN PRN Reason: Insomnia Saccharomyces Boulardii (Florastor) 250 mg PO DAILY [facility] Last Admin: 10/16/18 08:33 Dose: 250 mg Sodium Chloride ([place] Nasal [place] 0.65%) 0 ml EA NARE QIDPRN PRN PRN Reason: Nasal Congestion Throat Lozenges (Cepastat Lozenges) 1 ghada PO Q2H PRN PRN Reason: Sore Throat Tramadol HCl (Ultram) 50 mg PO DAILY [facility] Last Admin: 10/16/18 08:33 Dose: 50 mg
[2018-10-16] MEDS ORDERED: Fleet Enema 133 ML BOT PR SCH (11:45)
[2018-10-16] MEDS: HumaLOG 300 UNITS/3 ML VIAL SC PRN ×3 (12:47→21:50)
[2018-10-16 15:56] LABS: INR-International Normal Ratio 2.4; Prothrombin Time 25.8 SEC (12.0-14.7)
--- NOTE | 2018-10-16 19:45 | OP ---
DATE OF PROCEDURE: 10/16/2018 PREOPERATIVE DIAGNOSIS: Chronic diarrhea. DESCRIPTION OF PROCEDURE: After informed consent was obtained, the patient was placed in the left lateral decubitus position. Anesthesia was administered per the anesthesia department. Forward-viewing endoscope was inserted in the rectum after perianal inspection and rectal exam were normal and passed to the mid descending colon. There, a large amount of stool was obtained and the scope could not be passed further. Random biopsies were performed. No colitis or mucosal abnormalities were noted. ASSESSMENT: Normal flexible sigmoidoscopy - status post random biopsies of left colon. RECOMMENDATIONS: 1. Await histopathology. 2. Continue present medications. 3. Stable for discharge from GI standpoint. Job ID: [id number]
[2018-10-16] MEDS ORDERED: PROPOFOL 200 MG/20 ML VIAL ONE (20:44)
[2018-10-16] MEDS: diphenhydrAMINE 25 MG CAP PO SCH (21:41)
[2018-10-17] MEDS: HumaLOG 300 UNITS/3 ML VIAL SC PRN ×2 (06:08→12:45)
[2018-10-17 08:15] VITALS: TEMP 97.8
[2018-10-17] MEDS: Alogliptin 6.25 MG TAB PO SCH (08:35)
[2018-10-17] MEDS: Gabapentin 300 MG CAP PO SCH ×2 (08:36→12:00)
[2018-10-17] MEDS: Saccharomyces boulardii 250 MG CAP PO SCH (08:36)
[2018-10-17] MEDS: traMADol HCl 50 MG TAB PO SCH (08:39)
[2018-10-17] MEDS: metFORMIN 500 MG TAB PO SCH (08:40)
[2018-10-17] MEDS: Diphenoxylate HCl/Atropine Tablet PO SCH (08:40)
[2018-10-17] MEDS: Flecainide 50 MG TAB PO SCH (08:41)
[2018-10-17] MEDS: Citrucel 500 MG TAB PO SCH (08:42)
[2018-10-17] MEDS: K-Phos Neutral 250 MG TAB PO SCH (08:42)
--- NOTE | 2018-10-17 11:18 | DIS ---
DATE OF ADMISSION: 10/11/2018 DATE OF DISCHARGE: 10/17/2018 PRIMARY CARE PHYSICIAN: Allie Cisneros. DISCHARGE DISPOSITION: Home. PRIMARY DISCHARGE DIAGNOSES: Colitis, chemotherapy-induced diarrhea, hypokalemia, supratherapeutic INR with warfarin-induced coagulopathy, hypophosphatemia, and hypomagnesemia. SECONDARY DISCHARGE DIAGNOSES: Leukopenia due to chemotherapy; liver metastasis; history of colon cancer; anemia of chronic disease; anxiety and depression; chronic atrial fibrillation; chronic anticoagulation; chronic kidney disease stage 3; decubitus ulcer of right heel; diabetes type 2; hypertension; obstructive sleep apnea, on continuous positive airway pressure; and obesity with BMI 35. RADIOLOGICAL INVESTIGATION: Abdomen and pelvis CT scan. SIGNIFICANT LABORATORY DATA: WBC 4.5, hemoglobin 8.9, and platelets 208. INR 2.4. Sodium 134 and creatinine 1.0. LFT normal. DISCHARGE MEDICATIONS: 1. Prochlorperazine 10 mg q.6 hourly p.r.n. 2. Zofran 8 mg q.8 hourly p.r.n. 3. Lipitor 20 mg daily. 4. Benadryl 50 mg p.o. at bedtime. 5. Flecainide 100 mg b.i.d. 6. Gabapentin 600 mg p.o. at bedtime and 300 mg b.i.d. 7. Glipizide 10 mg b.i.d. 8. Levemir 40 units subcu at bedtime. 9. Lisinopril 20 mg p.o. daily. 10. Melatonin 1 mg p.o. at bedtime p.r.n. 11. Toprol-XL 25 mg p.o. daily. 12. Janumet one tablet twice daily. 13. Tramadol 150 mg p.o. daily. 14. Citrucel 500 mg daily. 15. Cholestyramine 4 g p.o. b.i.d. 16. Lomotil 1 capsule q.i.d. p.r.n. 17. K-Phos 250 mg p.o. b.i.d. 18. Florastor 250 mg daily. 19. Warfarin 2.5 mg daily. CONTRAINDICATION: None. CODE STATUS: Full code. INPATIENT CONSULTANTS: Dr. Echeverria and group were following while in the hospital. Oncology group was also consulted while in hospital. TEST RESULTS PENDING ON DISCHARGE: None. ALLERGIES: NO KNOWN DRUG ALLERGIES. DISCHARGE PLAN: Posthospital, the patient will follow up with Dr. Echeverria and Dr. Huff as instructed. PRIMARY PROCEDURE/OPERATION: Flexible sigmoidoscopy was done and biopsy was obtained. Result is pending by the time of discharge. HOSPITAL COURSE: This is a 68-year-old male, who was admitted by Dr. Sanford. Please see his H and P for further details. This patient has colon cancer with metastasis and he is getting chemotherapy. He was having diarrhea for a period of time and that is why he was admitted to the hospital. He was dehydrated on admission. He had abnormal electrolytes with hypokalemia, hypophosphatemia, and hypomagnesemia that were corrected with replacement. Abdomen and pelvis CT scan finding were consistent with mild colitis. Gastroenterology was consulted. Initially, we tried to give him antibiotic therapy and we did stool for infection workup, which came back negative. Subsequently, antibiotic therapy was discontinued. Gastroenterology and Oncology were thinking that this patient has diarrhea, which was most likely related with chemotherapy-induced. The patient also underwent flexible sigmoidoscopy, and biopsy was obtained. Result is pending. Gastroenterology recommended Lomotil, Imodium p.r.n. basis, and cholestyramine. With these, the patient's diarrhea frequency significantly improving. While in the hospital, he had supratherapeutic INR that is why we were not giving him any warfarin therapy while in hospital, but on discharge, we reduced the dose of warfarin to 2.5 mg p.o. daily and advised to monitor PT/INR daily basis. At this point, the patient is hemodynamically stable. The patient is seen and examined at bedside today. Plan of care discussed with the patient's . All review of systems reviewed with him and negative. PHYSICAL EXAMINATION: VITAL SIGNS: Currently; temperature 97.8, pulse 73, respiratory rate 20, saturation 98% on room air, and blood pressure 137/74. Weight 240 pounds. GENERAL: The patient is currently alert and awake, in no obvious acute distress. HEENT: Head, normocephalic and atraumatic. Eyes, pupils round and reactive to light. Extraocular muscle intact. ENT, oropharynx within normal limits. Moist mucous membranes. No oral lesion. No pharyngeal erythema. No exudate. NECK: Supple. No JVD. No thyromegaly. No carotid bruit. LUNGS: Clear to auscultation without any rhonchi or rales. CARDIAC: S1 and S2, irregular. No murmur. No gallop. No rub. ABDOMEN: Soft and benign without any tenderness. EXTREMITIES: No edema. NEUROLOGIC: Nonfocal examination. All new medication prescription sent to his Pharmacy. Job ID: [id number]
[2018-10-17] MEDS: Cholestyramine/Aspartame 4 gm Packet PO SCH (12:02)
[2018-10-17 12:49] VITALS: BP 156/80
== END 2018-10-17 13:32 | disposition home or self-care (01) | DRG 394 ==
LOC: ERS 00:51 → T4-B 04:30 → OBSVTOIN 10-11 11:18
PROVIDERS: ADMIT Internal Medicine; ATTEND Internal Medicine
PROC: 0DBN8ZX Excision of Sigmoid Colon, Via Natural or Artificial Opening Endoscopic, Diagnostic (ICD-10-PCS; principal; 2018-10-16)
DX: K52.1 Toxic gastroenteritis and colitis (principal); C18.9 Malignant neoplasm of colon, unspecified; N17.9 Acute kidney failure, unspecified; C78.7 Secondary malignant neoplasm of liver and intrahepatic bile duct; D68.32 Hemorrhagic disorder due to extrinsic circulating anticoagulants; C78.00 Secondary malignant neoplasm of unspecified lung; T45.1X5A Adverse effect of antineoplastic and immunosuppressive drugs, initial encounter; I48.2 Chronic atrial fibrillation; G25.81 Restless legs syndrome; I12.9 Hypertensive chronic kidney disease with stage 1 through stage 4 chronic kidney disease, or unspecified chronic kidney disease; G47.33 Obstructive sleep apnea (adult) (pediatric); E66.9 Obesity, unspecified; Z68.33 Body mass index [BMI] 33.0-33.9, adult; E11.22 Type 2 diabetes mellitus with diabetic chronic kidney disease; E87.6 Hypokalemia; E83.42 Hypomagnesemia; E83.39 Other disorders of phosphorus metabolism; D72.819 Decreased white blood cell count, unspecified; D63.8 Anemia in other chronic diseases classified elsewhere; F41.9 Anxiety disorder, unspecified; F32.9 Major depressive disorder, single episode, unspecified; N18.3 Chronic kidney disease, stage 3 (moderate); E11.65 Type 2 diabetes mellitus with hyperglycemia; T45.515A Adverse effect of anticoagulants, initial encounter; L89.610 Pressure ulcer of right heel, unstageable; E86.0 Dehydration; Z79.01 Long term (current) use of anticoagulants; Z89.421 Acquired absence of other right toe(s)
CPT/HCPCS: 36415; 36416; 74177; 80048; 80053; 80076; 81003; 81015; 82274; 82550; 83605; 83630; 83690; 83735; 83930; 83935; 84100; 84300; 84484; 85025; 85610; 87040; 87045; 87046; 87077; 87086; 87186; 87324; 87449; 87899; 88305; 93005; 96361; 96365; 96374; 96375; 96376; G8978-GP-CL; G8979-GP-CI; J0692; J0696; J1642; J2270; J2405; J2704; J3475; J3480; J7050; Q0162

== ENCOUNTER 2018-11-09 08:44 | Outpatient (CLI) | payer MEDICARE ==
--- NOTE | 2018-11-09 11:37 | CT ---
CT OF THE CHEST AND ABDOMEN AND PELVIS WITH IV COTNRAST: INDICATION: History of colon cancer with hepatic and pulmonary metastatic disease. COMPARISON: CT of the thorax dated 06/08/[address] of the abdomen and pelvis dated 10/10/2018. FINDINGS: There has been resolution of some of the scattered pulmonary nodules seen on the prior examination da [place] 06/08/2018. The previously seen 1.3 cm pulmonary nodule within the medial right lower lobe has decreased in size and now measures 5 mm. Additional smaller subcentimeter pulmonary nodule within the right lobe previ ously measuring 7 mm now measures approximately 3 mm on image 49 of series 6. Area of tree-in-bud no dularity right middle lobe is also less prominent. The small sub-4 mm pulmonary nodule within the le ft upper lobe on image 42 of series 3 on the prior examination dated 06/28/2018 is also less prominent on image 29 of series 6 on the present exam. This measures approximately 2 mm where it previously m easured 4 mm. No new pulmonary nodule is evident. There are scattered coronary artery thoracic aortic calcifications. The numerous scattered hepatic hypodensities consistent with metastatic disease have also decreased i n size. The index nodule within the right hepatic lobe previously measuring 2.9 cm in May of 2018 and 2.4 cm in September of 2018 has decreased now measuring 2.3 cm. No new additional hepatic metast atic disease is evident. Index lesion within the left hepatic lobe measuring 13 mm on 10/10/2018 now measures 11 mm. The portocaval lymph node has also decreased in size previously measuring 1.8 cm and now measures 1.5 cm. The central mesenteric lymph node previously measuring 2.7 x 1.5 cm now measures 2.3 x 1.5 cm. Soft tissue nodularity is seen along the medial border of the anterior abdominal wall hernia mesh is stable and may reflect scarring. No new lymphadenopathy is evident. The pancreas, adrenal glands, and spleen appear within normal limits. There is stable postsurgical ch scarlet of a right hemicolectomy. The bladder is partially decompressed; however, there is diffuse bila teral wall thickening with a suggestion of perivesicular fat stranding. There is calcification of the vas deferens which can be seen in diabetic males. No suspicious osteolytic or osteoblastic lesion is evident. IMPRESSION: 1. Findings consistent with response to therapy with decreasing prominence of the pulmonary and hepa tic metastatic disease as well as the metastatic lymphadenopathy within the central mesentery as well as the portocaval region. 2. Wall thickening and perivesicular fat stranding involving the bladder suspicious for cystitis. R ecommend correlation with clinical examination. 3. Persistent area of soft tissue nodularity seen along the medial border of the patient's anterior abdominal wall hernia mesh may reflect scarring. 4. Stable postsurgical change right hemicolectomy. 5. Other chronic findings as above. POS: MARISOL
== END 2018-11-09 08:45 | disposition home or self-care (01) ==
LOC: SCSCT 08:44
PROVIDERS: ATTEND Internal Medicine Hematology & Oncology
DX: C18.9 Malignant neoplasm of colon, unspecified (principal); C78.7 Secondary malignant neoplasm of liver and intrahepatic bile duct; C78.00 Secondary malignant neoplasm of unspecified lung; R59.0 Localized enlarged lymph nodes; N32.89 Other specified disorders of bladder; R91.8 Other nonspecific abnormal finding of lung field; N50.89 Other specified disorders of the male genital organs; I25.10 Atherosclerotic heart disease of native coronary artery without angina pectoris; I70.0 Atherosclerosis of aorta; R16.0 Hepatomegaly, not elsewhere classified; K76.9 Liver disease, unspecified; M79.89 Other specified soft tissue disorders; Z90.49 Acquired absence of other specified parts of digestive tract
CPT/HCPCS: 71260; 74177; 82565

== ENCOUNTER 2018-11-13 11:47 | Day surgery (SDC) | payer MEDICARE, OTHER ==
[2018-11-13] MEDS ORDERED: Sodium Chloride 0.9% 20 ML ONE (12:25)
[2018-11-13] MEDS ORDERED: Bevacizumab 500 MG in Sodium Chloride 0.9% 80 ML IVPB SCH (13:00)
[2018-11-13] MEDS ORDERED: Leucovorin Calcium 50 MG in Dextrose 5% in Water 50 ML IVPB SCH (13:00)
[2018-11-13] MEDS ORDERED: DEXTROSE 5% IVPB SCH ×2 (13:00)
[2018-11-13] MEDS ORDERED: WATER IVPB SCH ×2 (13:00)
[2018-11-13] MEDS ORDERED: OXALIPLATIN IVPB SCH (13:00)
[2018-11-13] MEDS ORDERED: Dexamethasone 10 MG/ML VIAL SLOW IVP SCH (13:00)
[2018-11-13] MEDS ORDERED: PALONOSETRON HCL 0.05 MG/ML 5 ML VIAL IVP SCH (13:00)
[2018-11-13] MEDS ORDERED: FLUOROURACIL IVPB SCH (13:00)
== END 2018-11-13 16:56 | disposition home or self-care (01) ==
LOC: ONC/OP 11:47
PROVIDERS: ATTEND Internal Medicine Hematology & Oncology
DX: Z51.11 Encounter for antineoplastic chemotherapy (principal); C18.6 Malignant neoplasm of descending colon; C78.7 Secondary malignant neoplasm of liver and intrahepatic bile duct; C78.01 Secondary malignant neoplasm of right lung; E11.9 Type 2 diabetes mellitus without complications; I10 Essential (primary) hypertension; E78.5 Hyperlipidemia, unspecified; M19.90 Unspecified osteoarthritis, unspecified site; F41.9 Anxiety disorder, unspecified; F32.9 Major depressive disorder, single episode, unspecified; D50.9 Iron deficiency anemia, unspecified; G47.33 Obstructive sleep apnea (adult) (pediatric); Z79.84 Long term (current) use of oral hypoglycemic drugs; Z79.899 Other long term (current) drug therapy
CPT/HCPCS: 96367; 96375; 96413; 96415; 96416; 96417; J0640; J1100; J2469; J7050; J7070; J9035; J9190; J9263

== ENCOUNTER 2018-11-27 10:06 | Day surgery (SDC) | payer MEDICARE, OTHER ==
[2018-11-27] MEDS ORDERED: Sodium Chloride 0.9% 10 ML ONE (10:16)
[2018-11-27] MEDS ORDERED: Dexamethasone 10 MG/ML VIAL SLOW IVP SCH (10:45)
[2018-11-27] MEDS ORDERED: FLUOROURACIL IVPB SCH (10:45)
[2018-11-27] MEDS ORDERED: PALONOSETRON HCL 0.05 MG/ML 5 ML VIAL IVP SCH (10:45)
[2018-11-27] MEDS ORDERED: Bevacizumab 500 MG in Sodium Chloride 0.9% 80 ML IVPB SCH (10:45)
[2018-11-27] MEDS ORDERED: OXALIPLATIN IVPB SCH (10:45)
[2018-11-27] MEDS ORDERED: Leucovorin Calcium 50 MG in Dextrose 5% in Water 50 ML IVPB SCH (10:45)
[2018-11-27] MEDS ORDERED: DEXTROSE 5% IVPB SCH ×2 (10:45)
[2018-11-27] MEDS ORDERED: WATER IVPB SCH ×2 (10:45)
[2018-11-27 13:41] VITALS: BP 102/65; TEMP 97.5
== END 2018-11-27 19:26 | disposition home or self-care (01) ==
LOC: ONC/OP 10:06
PROVIDERS: ATTEND Internal Medicine Hematology & Oncology
DX: Z51.11 Encounter for antineoplastic chemotherapy (principal); C78.7 Secondary malignant neoplasm of liver and intrahepatic bile duct; C18.6 Malignant neoplasm of descending colon; C78.01 Secondary malignant neoplasm of right lung; E11.9 Type 2 diabetes mellitus without complications; I10 Essential (primary) hypertension; E78.5 Hyperlipidemia, unspecified; M19.90 Unspecified osteoarthritis, unspecified site; F41.9 Anxiety disorder, unspecified; F32.9 Major depressive disorder, single episode, unspecified; G47.33 Obstructive sleep apnea (adult) (pediatric); Z79.01 Long term (current) use of anticoagulants; Z79.4 Long term (current) use of insulin; Z79.899 Other long term (current) drug therapy; Z90.49 Acquired absence of other specified parts of digestive tract
CPT/HCPCS: 96367; 96375; 96413; 96415; 96416; 96417; J0640; J1100; J2469; J7050; J7070; J9035; J9190; J9263

== ENCOUNTER 2018-12-11 10:11 | Day surgery (SDC) | payer MEDICARE, OTHER ==
[~2018-12-11 10:11] MED LIST changes: -ADMIXTURE FEE IVPB SCH; -DEXAMETHASONE IVPB SCH; -DEXTROSE IVPB SCH; +Dexamethasone 10 MG/ML VIAL SLOW IVP SCH; +Leucovorin Calcium 50 MG in Dextrose 5% in Water 50 ML IVPB SCH; -Leucovorin Calcium 50 MG, Admixture Fee 1 EACH in Dextrose 5% in Water 50 ML IVPB SCH; +PALONOSETRON HCL 0.05 MG/ML 5 ML VIAL IVP SCH; -PALONOSETRON HCL IVPB SCH; +Palonosetron HCl 0.25 MG in Dextrose 5% in Water 50 ML IVPB SCH; -Sodium Chloride 0.9% 20 ML ONE
[2018-12-11] MEDS ORDERED: Sodium Chloride 0.9% 40 ML ONE (10:41)
[2018-12-11 12:20] VITALS: BP 130/61; TEMP 98.1
== END 2018-12-11 15:30 | disposition home or self-care (01) ==
LOC: ONC/OP 10:11
PROVIDERS: ATTEND Internal Medicine Hematology & Oncology
DX: Z51.11 Encounter for antineoplastic chemotherapy (principal); C18.6 Malignant neoplasm of descending colon; C78.7 Secondary malignant neoplasm of liver and intrahepatic bile duct; C78.01 Secondary malignant neoplasm of right lung; I10 Essential (primary) hypertension; I48.91 Unspecified atrial fibrillation; I48.92 Unspecified atrial flutter; E11.9 Type 2 diabetes mellitus without complications; E78.5 Hyperlipidemia, unspecified; M19.90 Unspecified osteoarthritis, unspecified site; F41.9 Anxiety disorder, unspecified; F32.9 Major depressive disorder, single episode, unspecified; D50.9 Iron deficiency anemia, unspecified; G47.33 Obstructive sleep apnea (adult) (pediatric); Z90.49 Acquired absence of other specified parts of digestive tract; Z79.891 Long term (current) use of opiate analgesic; Z79.01 Long term (current) use of anticoagulants; Z79.4 Long term (current) use of insulin; Z79.899 Other long term (current) drug therapy; Z98.890 Other specified postprocedural states
CPT/HCPCS: 96367; 96375; 96413; 96415; 96416; 96417; J0640; J1100; J2469; J7050; J7070; J9035; J9190; J9263

== ENCOUNTER 2018-12-25 00:07 | Day surgery (SDC) | payer MEDICARE, OTHER ==
[2018-12-25] MEDS ORDERED: PALONOSETRON HCL 0.05 MG/ML 5 ML VIAL IVP SCH (02:45)
[2018-12-25] MEDS ORDERED: Leucovorin Calcium 50 MG in Dextrose 5% in Water 50 ML IVPB SCH (02:45)
[2018-12-25] MEDS ORDERED: Dexamethasone 10 MG/ML VIAL SLOW IVP SCH (02:45)
[2018-12-25] MEDS ORDERED: FLUOROURACIL IVPB SCH (02:45)
[2018-12-25] MEDS ORDERED: DEXTROSE 5% IVPB SCH ×2 (02:45)
[2018-12-25] MEDS ORDERED: Bevacizumab 400 MG, Bevacizumab 100 MG in Sodium Chloride 0.9% 80 ML IVPB SCH (02:45)
[2018-12-25] MEDS ORDERED: OXALIPLATIN IVPB SCH (02:45)
[2018-12-25] MEDS ORDERED: WATER IVPB SCH ×2 (02:45)
[2018-12-25] MEDS ORDERED: Sodium Chloride 0.9% 20 ML ONE (12:32)
[2018-12-25 13:58] VITALS: BP 180/78; TEMP 97.7
== END 2018-12-25 15:44 | disposition home or self-care (01) ==
LOC: ONC/OP 00:07
PROVIDERS: ATTEND Internal Medicine Hematology & Oncology
DX: Z51.11 Encounter for antineoplastic chemotherapy (principal); C78.7 Secondary malignant neoplasm of liver and intrahepatic bile duct; C18.6 Malignant neoplasm of descending colon; C78.01 Secondary malignant neoplasm of right lung; E11.9 Type 2 diabetes mellitus without complications; I10 Essential (primary) hypertension; E78.5 Hyperlipidemia, unspecified; M19.90 Unspecified osteoarthritis, unspecified site; F41.9 Anxiety disorder, unspecified; F32.9 Major depressive disorder, single episode, unspecified; G47.33 Obstructive sleep apnea (adult) (pediatric); Z79.4 Long term (current) use of insulin; Z79.899 Other long term (current) drug therapy; Z90.49 Acquired absence of other specified parts of digestive tract
CPT/HCPCS: 36415; 80053; 82248; 82378; 83615; 84100; 84550; 96367; 96375; 96413; 96417; J0640; J1100; J2469; J7050; J7070; J9035; J9190; J9263

== ENCOUNTER 2019-01-08 10:56 | Day surgery (SDC) | payer MEDICARE, OTHER ==
[~2019-01-08 10:56] MED LIST changes: -Bevacizumab 500 MG in Sodium Chloride 0.9% 80 ML IVPB SCH; -OXALIPLATIN IVPB SCH; -Palonosetron HCl 0.25 MG in Dextrose 5% in Water 50 ML IVPB SCH
[2019-01-08] MEDS ORDERED: Sodium Chloride 0.9% 20 ML ONE (11:37)
[2019-01-08 13:03] VITALS: BP 133/63; TEMP 97.8
== END 2019-01-08 14:32 | disposition home or self-care (01) ==
LOC: ONC/OP 10:56
PROVIDERS: ATTEND Internal Medicine Hematology & Oncology
DX: Z51.11 Encounter for antineoplastic chemotherapy (principal); C18.6 Malignant neoplasm of descending colon; C78.7 Secondary malignant neoplasm of liver and intrahepatic bile duct; C78.01 Secondary malignant neoplasm of right lung; E11.9 Type 2 diabetes mellitus without complications; I10 Essential (primary) hypertension; E78.5 Hyperlipidemia, unspecified; M19.90 Unspecified osteoarthritis, unspecified site; F41.9 Anxiety disorder, unspecified; F32.9 Major depressive disorder, single episode, unspecified; G47.33 Obstructive sleep apnea (adult) (pediatric); Z90.49 Acquired absence of other specified parts of digestive tract
CPT/HCPCS: 36415; 80053; 82248; 82378; 83615; 84100; 84550; 96366; 96375; 96413; 96417; J1100; J2469; J7050; J7070; J9035; J9190

== ENCOUNTER 2019-01-22 11:21 | Day surgery (SDC) | payer MEDICARE, OTHER ==
[~2019-01-22 11:21] MED LIST changes: +Haloperidol Lactate 5 MG/ML VIAL ONE; +OXALIPLATIN IVPB SCH; +Palonosetron HCl 0.25 MG in Dextrose 5% in Water 50 ML IVPB SCH; +Sodium Chloride 0.9% 20 ML ONE
[2019-01-22 14:03] VITALS: BP 139/67; TEMP 97.7
== END 2019-01-22 15:20 | disposition home or self-care (01) ==
LOC: ONC/OP 11:21
PROVIDERS: ATTEND Internal Medicine Hematology & Oncology
DX: Z51.11 Encounter for antineoplastic chemotherapy (principal); C18.6 Malignant neoplasm of descending colon; C78.01 Secondary malignant neoplasm of right lung; C78.7 Secondary malignant neoplasm of liver and intrahepatic bile duct
CPT/HCPCS: 96367; 96375; 96413; 96417; J0640; J1100; J1630; J1642; J2469; J7050; J7070; J9035; J9190; J9263

== ENCOUNTER 2019-01-22 16:41 | Inpatient (IN) | payer MEDICARE, OTHER ==
[2019-01-22 18:22] LABS: #Eosinphils 0.1 thou/uL (0.0-0.7); #Lymphocytes 0.5 thou/uL (1.20-3.40); #Monocytes 0.1 thou/uL (0.11-0.59); %Eosinophils 0.8 % (0.0-10.0); %Lymphocytes 6.3 % (21.0-51.0); %Monocytes 1.5 % (0.0-10.0); %Neutrophils 91.5 % (42.0-75.0); Hemoglobin 11.2 g/dL (14.0-18.0); Mean Corpuscular HGB CONC 34.1 g/dL (32.0-36.0); Mean Corpuscular Hemoglobin 33.4 pg (27.0-31.0); Mean Platelet Volume 7.5 fL (7.4-10.4); Platelet Count 203 thou/uL (130-400); RBC Distribution Width 15.3 % (11.5-14.5); Red Blood Cell (RBC) Count 3.34 mill/uL (4.70-6.10); White Blood Cell (WBC) Count 7.7 thou/uL (4.8-10.8)
[2019-01-22 18:48] LABS: ALT (SGPT) 20 U/L (8-55); AST (SGOT) 20 U/L (5-34); Albumin 3.8 g/dL (3.4-4.8); Alkaline Phosphatase 86 U/L (40-150); Anion Gap 16 mmol/L (10-20); BUN (Urea Nitrogen) 38 mg/dL (8.4-25.7); Bilirubin, Total 0.3 mg/dL (0.2-1.2); Calc. Creatinine Clearance 0 mL/min (70-130); Calcium 9.1 mg/dL (7.8-10.44); Carbon Dioxide 15 mmol/L (23-31); Chloride 100 mmol/L (98-107); Estimated GFR-MDRD 31; Globulin 3.8 g/dL (2.4-3.5); Protein, Total 7.6 g/dL (5.8-8.1); Sodium 124 mmol/L (136-145)
[2019-01-22 18:53] LABS: Glucose 576 mg/dL (80-115); Potassium 6.8 mmol/L (3.5-5.1)
[2019-01-22] MEDS ORDERED: Calcium Gluc 4.6 MEQ/10 ML (100 MG/ML) ONE (19:07)
[2019-01-22] MEDS ORDERED: Insulin Regular 300 UNITS/3 ML VIAL ONE (19:07)
[2019-01-22 19:29] LABS: INR-International Normal Ratio 1.8; PTT 30.5 SEC (22.9-36.1)
[2019-01-22] MEDS ORDERED: Ondansetron ODT 4 MG TAB SL PRN (21:01)
[2019-01-22] MEDS ORDERED: Ondansetron PF 4 MG/2 ML Vial IVP PRN ×2 (21:01→21:10)
[2019-01-22] MEDS ORDERED: Acetaminophen 325 MG TAB PO PRN (21:01)
[2019-01-22] MEDS ORDERED: HumaLOG 300 UNITS/3 ML VIAL SC PRN ×2 (21:10)
[2019-01-22] MEDS ORDERED: Prochlorperazine Maleate 5 MG TAB PO PRN (21:10)
[2019-01-22] MEDS ORDERED: Senokot S 8.6-50 MG TAB PO PRN (21:10)
[2019-01-22] MEDS ORDERED: Dextrose 5% in Water 1,000 ML IV PRN (21:10)
[2019-01-22] MEDS ORDERED: Guaifenesin DM 100-10/5 ML UDCUP PO PRN (21:10)
[2019-01-22] MEDS ORDERED: Acetaminophen 650 MG Suppository PR PRN (21:10)
[2019-01-22] MEDS ORDERED: Dextrose 50% Abboject 50 ML SYRINGE SLOW IVP PRN (21:10)
[2019-01-22] MEDS ORDERED: Melatonin 3 MG TAB PO PRN (21:10)
[2019-01-22] MEDS ORDERED: Ondansetron ODT 4 MG TAB PO PRN (21:10)
[2019-01-22] MEDS ORDERED: Insulin Glargine 30 UNITS in Pre-Filled Syringe 1 EACH SC SCH (21:30)
[2019-01-22] MEDS ORDERED: glipiZIDE 10 MG TAB PO SCH (21:30)
[2019-01-22] MEDS ORDERED: Gabapentin 300 MG CAP PO SCH ×2 (21:30)
[2019-01-22] MEDS ORDERED: Famotidine 20 MG TAB PO SCH (21:30)
[2019-01-22] MEDS ORDERED: Flecainide 50 MG TAB PO SCH (21:30)
[2019-01-22 21:48] LABS: Anion Gap 15 mmol/L (10-20); BUN (Urea Nitrogen) 35 mg/dL (8.4-25.7); Calc. Creatinine Clearance 0 mL/min (70-130); Calcium 9.2 mg/dL (7.8-10.44); Carbon Dioxide 18 mmol/L (23-31); Chloride 103 mmol/L (98-107); Estimated GFR-MDRD 34; Glucose 462 mg/dL (80-115); Potassium 5.5 mmol/L (3.5-5.1); Sodium 130 mmol/L (136-145)
[2019-01-22 21:51] VITALS: BMI 32.5
[2019-01-22] MEDS: Sodium Chloride 0.9% 1,000 ML IV SCH (22:12)
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
[2019-01-23 05:20] LABS: #Lymphocytes 0.8 thou/uL (1.20-3.40); #Monocytes 0.8 thou/uL (0.11-0.59); #Neutrophils 7.6 thou/uL (1.40-6.50); %Basophils 0.1 % (0.0-1.0); %Eosinophils 0.2 % (0.0-10.0); %Lymphocytes 8.8 % (21.0-51.0); %Monocytes 8.7 % (0.0-10.0); %Neutrophils 82.3 % (42.0-75.0); Hemoglobin 10.5 g/dL (14.0-18.0); Mean Corpuscular HGB CONC 35.6 g/dL (32.0-36.0); Mean Corpuscular Hemoglobin 34.7 pg (27.0-31.0); Mean Corpuscular Volume 97.4 fL (78.0-98.0); Mean Platelet Volume 7.6 fL (7.4-10.4); Platelet Count 195 thou/uL (130-400); RBC Distribution Width 15.2 % (11.5-14.5); Red Blood Cell (RBC) Count 3.02 mill/uL (4.70-6.10); White Blood Cell (WBC) Count 9.2 thou/uL (4.8-10.8)
[2019-01-23 05:41] LABS: Anion Gap 16 mmol/L (10-20); BUN (Urea Nitrogen) 34 mg/dL (8.4-25.7); Calc. Creatinine Clearance 58 mL/min (70-130); Calcium 9.1 mg/dL (7.8-10.44); Carbon Dioxide 18 mmol/L (23-31); Chloride 102 mmol/L (98-107); Estimated GFR-MDRD 38; Glucose 322 mg/dL (80-115); Potassium 5.3 mmol/L (3.5-5.1); Sodium 131 mmol/L (136-145)
[2019-01-23] MEDS: Flecainide 50 MG TAB PO SCH ×2 (08:46→21:15)
[2019-01-23] MEDS: glipiZIDE 10 MG TAB PO SCH ×2 (08:47→21:15)
[2019-01-23] MEDS: Gabapentin 300 MG CAP PO SCH ×2 (08:48→13:35)
[2019-01-23] MEDS: Atorvastatin Calcium 20 MG TAB PO SCH (08:48)
[2019-01-23] MEDS: Insulin Glargine 40 UNITS in Pre-Filled Syringe 1 EACH SC SCH (09:08)
[2019-01-23 16:37] LABS: Hemoglobin 10.7 g/dL (14.0-18.0); Platelet Count 206 thou/uL (130-400)
[2019-01-23] MEDS ORDERED: Warfarin Sodium 2.5 MG TAB PO SCH (17:00)
[2019-01-23] MEDS: Sodium Chloride 0.9% 1,000 ML IV SCH ×2 (18:12→19:15)
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
[2019-01-23] MEDS ORDERED: Insulin Glargine 30 UNITS in Pre-Filled Syringe 1 EACH SC SCH (21:00)
[2019-01-23] MEDS ORDERED: Gabapentin 300 MG CAP PO SCH (21:00)
[2019-01-23] MEDS ORDERED: Famotidine 20 MG TAB PO SCH (21:00)
[2019-01-23] MEDS: Acetaminophen 325 MG TAB PO PRN (21:15)
[2019-01-24] MEDS: Sodium Chloride 0.9% 1,000 ML IV SCH (04:58)
[2019-01-24] MEDS: Acetaminophen 325 MG TAB PO PRN (04:58)
[2019-01-24 05:21] LABS: INR-International Normal Ratio 1.9; Prothrombin Time 21.6 SEC (12.0-14.7)
[2019-01-24 05:31] LABS: Anion Gap 14 mmol/L (10-20); BUN (Urea Nitrogen) 25 mg/dL (8.4-25.7); Calc. Creatinine Clearance 73 mL/min (70-130); Calcium 9.1 mg/dL (7.8-10.44); Carbon Dioxide 24 mmol/L (23-31); Chloride 105 mmol/L (98-107); Estimated GFR-MDRD 52; Glucose 107 mg/dL (80-115); Potassium 3.8 mmol/L (3.5-5.1); Sodium 139 mmol/L (136-145)
[2019-01-24] MEDS: Flecainide 50 MG TAB PO SCH (08:48)
[2019-01-24] MEDS: Gabapentin 300 MG CAP PO SCH ×2 (08:49→12:17)
[2019-01-24] MEDS: glipiZIDE 10 MG TAB PO SCH (08:49)
[2019-01-24] MEDS: Atorvastatin Calcium 20 MG TAB PO SCH (08:50)
[2019-01-24] MEDS: Insulin Glargine 40 UNITS in Pre-Filled Syringe 1 EACH SC SCH (08:52)
[2019-01-24 12:12] VITALS: BP 147/72; TEMP 98.7
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
== END 2019-01-24 13:25 | disposition home or self-care (01) | DRG 683 ==
LOC: ERS 16:41 → 2SW 20:59 → OBSVTOIN 01-23 14:42
PROVIDERS: ADMIT Emergency Medicine; ATTEND Emergency Medicine
DX: N17.9 Acute kidney failure, unspecified (principal); C18.9 Malignant neoplasm of colon, unspecified; E87.5 Hyperkalemia; E11.22 Type 2 diabetes mellitus with diabetic chronic kidney disease; I12.9 Hypertensive chronic kidney disease with stage 1 through stage 4 chronic kidney disease, or unspecified chronic kidney disease; N18.3 Chronic kidney disease, stage 3 (moderate); E11.42 Type 2 diabetes mellitus with diabetic polyneuropathy; G47.30 Sleep apnea, unspecified; I48.2 Chronic atrial fibrillation; Z89.421 Acquired absence of other right toe(s); Z79.4 Long term (current) use of insulin; Z92.21 Personal history of antineoplastic chemotherapy; E66.9 Obesity, unspecified; Z68.31 Body mass index [BMI] 31.0-31.9, adult
CPT/HCPCS: 36415; 36416; 80048; 80053; 82248; 82378; 83615; 84100; 84550; 85025; 85610; 85730; 93005; 96361; 96367; 96374; 96375; 96413; 96417; J0640; J1100; J1630; J1642; J1815; J1825; J2469; J7050; J7070; J9035; J9190; J9263

== ENCOUNTER 2019-02-12 10:48 | Day surgery (SDC) | payer MEDICARE, OTHER ==
[~2019-02-12 10:48] MED LIST changes: +DEXAMETHASONE SOD PHOSPHATE IVPB SCH; -Haloperidol Lactate 5 MG/ML VIAL ONE; -OXALIPLATIN IVPB SCH; -Sodium Chloride 0.9% 20 ML ONE
[2019-02-12] MEDS ORDERED: Sodium Chloride 0.9% 20 ML ONE (11:00)
[2019-02-12 11:47] VITALS: BP 122/58; TEMP 98.3
== END 2019-02-12 13:58 | disposition home or self-care (01) ==
LOC: ONC/OP 10:48
PROVIDERS: ATTEND Internal Medicine Hematology & Oncology
DX: Z51.11 Encounter for antineoplastic chemotherapy (principal); C18.6 Malignant neoplasm of descending colon; C78.01 Secondary malignant neoplasm of right lung; C78.7 Secondary malignant neoplasm of liver and intrahepatic bile duct
CPT/HCPCS: 36415; 80053; 82248; 82378; 83615; 84100; 84550; 96367; 96375; 96413; 96417; J0640; J1100; J2469; J3490; J7070; J9035; J9190

== ENCOUNTER 2019-02-22 09:42 | Outpatient (CLI) | payer MEDICARE ==
--- NOTE | 2019-02-22 11:06 | CT ---
CT OF THE CHEST, ABDOMEN AND PELVIS WITH IV CONTRAST INDICATION: Colon cancer COMPARISON: CT of the chest, abdomen and pelvis dated November 09, 2018 FINDINGS: CHEST: Lungs:No suspicious pulmonary nodules Heart and great vessels:Scattered coronary artery and thoracic aortic calcifications. There are stabl e mitral annular calcifications. Pleural space: No pneumothorax or effusion. Additional findings: No lymphadenopathy seen within the mediastinal, hilar and axillary regions. ABDOMEN: Liver:There is continued decrease in size of the hepatic metastatic disease. Index lesion within the right hepatic lobe on image 46 of series 4 previously measured 2.3 cm now measures 1.9 cm. The index lesion within the medial left hepatic lobe on image 52 of series 4 previously measured 11 mm no w measures 8 mm. Spleen:Normal appearing. Pancreas:Normal appearing. Adrenal Glands:Normal appearing. Kidneys:Stable left renal cyst. Right kidney is normal-appearing. Aorta:Scattered vascular calcifications are stable. Additional findings: Abdominal wall hernia mesh and post partial colectomy changes are stable. Small central mesenteric metastatic nodule on image 7 of series 4 is slightly smaller now measuring 2.2 x 1.1 cm where previously measured 2.3 x 1.5 cm. Haziness within the central mesentery is stable. Por tacaval lymph node is smaller now measuring 1 cm were presented measured 1.5 cm. Pelvis: Bowel:There is stable postsurgical change of a right hemicolectomy. Bladder:There is improvement in the bladder wall thickening; however, moderate residual wall thickeni ng with perivesicular fat stranding remains. Reproductive structures:There is stable calcification of the seminal vesicles. Rectum and perirectal soft tissues:Normal appearing. Additional findings: No free fluid or free air. Osseous structures: No suspicious osteolytic or osteoblastic lesion is identified. There is scattered degenerative and osteoarthritic changes. IMPRESSION: 1. Continued improvement with therapy. There is no evidence of recurrent pulmonary metastatic disease . There is continued decrease in size of the hepatic metastatic lesions as well as the central mesenteric metastatic nodule. The enlarged portacaval lymph node has also decreased in size. 2. Improved but persistent changes of cystitis.
== END 2019-02-22 09:43 | disposition home or self-care (01) ==
LOC: SCSCT 09:42
PROVIDERS: ATTEND Internal Medicine Hematology & Oncology
DX: C18.6 Malignant neoplasm of descending colon (principal); C78.7 Secondary malignant neoplasm of liver and intrahepatic bile duct; C78.01 Secondary malignant neoplasm of right lung; N30.90 Cystitis, unspecified without hematuria
CPT/HCPCS: 36415; 71260; 74177; 85610

== ENCOUNTER 2019-02-26 12:31 | Day surgery (SDC) | payer MEDICARE ==
[~2019-02-26 12:31] MED LIST changes: -Bevacizumab 400 MG, Bevacizumab 100 MG in Sodium Chloride 0.9% 80 ML IVPB SCH; +Bevacizumab 500 MG in Sodium Chloride 0.9% 80 ML IVPB SCH; -DEXAMETHASONE SOD PHOSPHATE IVPB SCH; -Palonosetron HCl 0.25 MG in Dextrose 5% in Water 50 ML IVPB SCH
[2019-02-26] MEDS ORDERED: Sodium Chloride 0.9% 20 ML ONE (13:17)
[2019-02-26 14:27] VITALS: BP 130/60; TEMP 97.6
== END 2019-02-26 15:32 | disposition home or self-care (01) ==
LOC: ONC/OP 12:31
PROVIDERS: ATTEND Internal Medicine Hematology & Oncology
DX: Z51.11 Encounter for antineoplastic chemotherapy (principal); C18.6 Malignant neoplasm of descending colon; C78.7 Secondary malignant neoplasm of liver and intrahepatic bile duct; C78.01 Secondary malignant neoplasm of right lung
CPT/HCPCS: 36415; 80053; 82248; 82378; 83615; 84100; 84550; 96367; 96375; 96413; 96417; J0640; J1100; J2469; J3490; J7070; J9035; J9190

== ENCOUNTER 2019-03-27 12:17 | Day surgery (SDC) | payer MEDICARE ==
[~2019-03-27 12:17] MED LIST changes: +Bevacizumab 400 MG, Bevacizumab 100 MG in Sodium Chloride 0.9% 80 ML IVPB SCH; -Bevacizumab 500 MG in Sodium Chloride 0.9% 80 ML IVPB SCH
[2019-03-27] MEDS ORDERED: Sodium Chloride 0.9% 20 ML ONE (12:19)
[2019-03-27 12:27] VITALS: BP 110/59; TEMP 97.5
== END 2019-03-27 14:11 | disposition home or self-care (01) ==
LOC: ONC/OP 12:17
PROVIDERS: ATTEND Internal Medicine Hematology & Oncology
DX: Z51.11 Encounter for antineoplastic chemotherapy (principal); C18.6 Malignant neoplasm of descending colon; C78.01 Secondary malignant neoplasm of right lung; C78.7 Secondary malignant neoplasm of liver and intrahepatic bile duct
CPT/HCPCS: 36415; 80053; 82248; 82378; 83615; 84100; 84550; 96367; 96375; 96413; 96417; J0640; J1100; J2469; J3490; J7070; J9035; J9190

== ENCOUNTER 2019-04-10 13:14 | Day surgery (SDC) | payer MEDICARE ==
[~2019-04-10 13:14] MED LIST changes: -Dexamethasone 10 MG/ML VIAL SLOW IVP SCH; -PALONOSETRON HCL 0.05 MG/ML 5 ML VIAL IVP SCH; +Palonosetron HCl 0.25 MG in Dextrose 5% in Water 50 ML IVPB SCH
[2019-04-10 13:30] VITALS: BP 123/60; TEMP 97.5
== END 2019-04-10 15:55 | disposition home or self-care (01) ==
LOC: ONC/OP 13:14
PROVIDERS: ATTEND Internal Medicine Hematology & Oncology
DX: Z51.11 Encounter for antineoplastic chemotherapy (principal); C78.7 Secondary malignant neoplasm of liver and intrahepatic bile duct; C18.6 Malignant neoplasm of descending colon; C78.01 Secondary malignant neoplasm of right lung
CPT/HCPCS: 96367; 96375; 96413; 96417; J0640; J1100; J2469; J3490; J7070; J9035; J9190

== ENCOUNTER 2019-04-12 17:55 | Inpatient (IN) | payer MEDICARE ==
[2019-04-12] MEDS ORDERED: Ondansetron ODT 4 MG TAB ONE (18:44)
--- NOTE | 2019-04-12 19:09 | RAD ---
EXAM: 3 views of the right foot HISTORY: Diabetic ulcer of the right foot COMPARISON: 09/25/2016 FINDINGS: 3 views of the right foot shows no evidence of acute fracture or dislocation. The patient i s status post interval amputation of the fourth toe through the proximal phalanx. There is stable remodeling of the proximal aspect of the fifth metatarsal. No soft tissue swelling is seen. No obviou s osseous erosions are seen. No degenerative changes are present. Diabetic vascular calcifications are seen. IMPRESSION: No osseous erosions to suggest osteomyelitis.
[2019-04-12 19:32] LABS: #Basophils 0.1 thou/uL (0.0-0.2); #Eosinphils 0.2 thou/uL (0.0-0.7); #Lymphocytes 1.5 thou/uL (1.20-3.40); #Monocytes 0.6 thou/uL (0.11-0.59); #Neutrophils 5.4 thou/uL (1.40-6.50); %Basophils 1.1 % (0.0-1.0); %Eosinophils 2.7 % (0.0-10.0); %Lymphocytes 19.7 % (21.0-51.0); %Monocytes 7.7 % (0.0-10.0); %Neutrophils 68.9 % (42.0-75.0); Mean Corpuscular HGB CONC 35.4 g/dL (32.0-36.0); Mean Corpuscular Hemoglobin 34.4 pg (27.0-31.0); Mean Corpuscular Volume 97.1 fL (78.0-98.0); Mean Platelet Volume 7.2 fL (7.4-10.4); Platelet Count 239 thou/uL (130-400); Red Blood Cell (RBC) Count 3.48 mill/uL (4.70-6.10); White Blood Cell (WBC) Count 7.8 thou/uL (4.8-10.8)
[2019-04-12 19:58] LABS: ALT (SGPT) 23 U/L (8-55); AST (SGOT) 24 U/L (5-34); Albumin 3.9 g/dL (3.4-4.8); Alkaline Phosphatase 78 U/L (40-150); Anion Gap 15 mmol/L (10-20); BUN (Urea Nitrogen) 29 mg/dL (8.4-25.7); Bilirubin, Total 0.5 mg/dL (0.2-1.2); Calc. Creatinine Clearance 0 mL/min (70-130); Calcium 9.5 mg/dL (7.8-10.44); Carbon Dioxide 22 mmol/L (23-31); Chloride 99 mmol/L (98-107); Estimated GFR-MDRD 35; Globulin 3.5 g/dL (2.4-3.5); Glucose 321 mg/dL (80-115); Potassium 4.8 mmol/L (3.5-5.1); Protein, Total 7.4 g/dL (5.8-8.1); Sodium 131 mmol/L (136-145)
[2019-04-12 20:38] LABS: Bilirubin Negative (Negative); Blood, Urine Small (Negative); Clarity TURBID (Clear); Glucose, Urine (Dipstick) >=1000 mg/dL (Negative); Leukocyte Moderate (Negative); Nitrite Negative (Negative); Protein, Urine (Dipstick) 30 mg/dL (Neg-Trace); Specific Gravity, Urine 1.018 (1.002-1.036); Urobilinogen 0.2 mg/dL (0.2-1.0)
[2019-04-12 20:40] LABS: Bacteria/HPF 4+ HPF (None Seen); Hyaline Casts/LPF 0-3 HYALINE CAST LPF (0-3 Hyaline); Pathc Cast-AUWi Flag 0.14 (0-2.49); Squamous Epithelial None Seen HPF (0-3)
[2019-04-12 20:41] LABS: Yeast-AUWi Flag 3163.7 (0-25.0)
[2019-04-12 20:53] LABS: Yeast-All Forms 3+ HPF (None Seen)
[2019-04-12] MEDS ORDERED: Piperacillin/Tazobactam 4.5 GM VIAL ONE (21:17)
[2019-04-12] MEDS ORDERED: Acetaminophen 325 MG TAB PO PRN (23:09)
[2019-04-12] MEDS ORDERED: Ondansetron ODT 4 MG TAB SL PRN (23:09)
[2019-04-12] MEDS ORDERED: Sodium Chloride 0.9% 1,000 ML IV SCH (23:09)
[2019-04-12] MEDS ORDERED: Ondansetron PF 4 MG/2 ML Vial IVP PRN (23:09)
[2019-04-12 23:35] LABS: Lactic Acid 2.5 mmol/L (0.5-2.2)
[2019-04-13] MEDS ORDERED: Piperacillin/Tazobactam 4.5 GM in Sodium Chloride 0.9% 100 ML IVPB SCH (04:00)
[2019-04-13] MEDS ORDERED: Nitroglycerin 0.4 MG TAB (25 Tab Bottle) SL PRN (07:12)
[2019-04-13] MEDS ORDERED: hydrALAZINE 20 MG/ML VIAL SLOW IVP PRN (07:12)
[2019-04-13] MEDS ORDERED: Diphenoxylate HCl/Atropine Tablet PO PRN (07:12)
[2019-04-13] MEDS ORDERED: Ondansetron ODT 4 MG TAB PO PRN (07:12)
[2019-04-13] MEDS ORDERED: HumaLOG 300 UNITS/3 ML VIAL SC PRN (07:12)
[2019-04-13] MEDS ORDERED: Cepastat Lozenges 1 LOZ PO PRN (07:12)
[2019-04-13] MEDS ORDERED: Artificial Tears 18 DROP/0.9 ML EA EYE PRN (07:12)
[2019-04-13] MEDS ORDERED: Sodium Chloride 0.65% Nasal 44 ML BOT EA NARE PRN (07:12)
[2019-04-13] MEDS ORDERED: Dextrose 50% Abboject 50 ML SYRINGE SLOW IVP PRN (07:12)
[2019-04-13] MEDS ORDERED: Diabetic Tussin 200 MG/10 ML UDCUP PO PRN (07:12)
[2019-04-13] MEDS ORDERED: Acetaminophen 325 MG TAB PO PRN (07:12)
[2019-04-13] MEDS ORDERED: Calcium Carbonate 500 MG ChewTAB PO PRN (07:12)
[2019-04-13] MEDS ORDERED: Ondansetron PF 4 MG/2 ML Vial IVP PRN (07:12)
[2019-04-13] MEDS ORDERED: Loperamide HCl 2 MG CAP PO PRN (07:12)
[2019-04-13] MEDS ORDERED: Bisacodyl 10 MG SUPP PR PRN (07:12)
[2019-04-13] MEDS ORDERED: Loratadine 10 MG TAB PO PRN (07:12)
[2019-04-13] MEDS ORDERED: HYDROcodone/Acetaminophen 5/325 mg Tablet PO PRN (07:12)
[2019-04-13] MEDS ORDERED: Dextrose 5% in Water 1,000 ML IV PRN (07:12)
[2019-04-13] MEDS ORDERED: Zolpidem Tartrate 5 MG TAB PO PRN (07:12)
[2019-04-13 08:01] LABS: INR-International Normal Ratio 1.7; Prothrombin Time 20.2 SEC (12.0-14.7)
[2019-04-13] MEDS ORDERED: Enoxaparin Sodium 30 MG/0.3 ML SYRINGE SC SCH (09:00)
[2019-04-13] MEDS ORDERED: Non-Formulary Item 1 EACH (Levemir Flexpen [Levemir Flexpen] 40 UNIT) SC SCH (09:00)
[2019-04-13] MEDS ORDERED: Warfarin Sodium 5 MG TAB PO SCH (09:00)
[2019-04-13] MEDS ORDERED: Senokot S 8.6-50 MG TAB PO PRN (09:00)
[2019-04-13] MEDS: glipiZIDE 10 MG TAB PO SCH ×2 (09:10→20:23)
[2019-04-13] MEDS: Metoprolol Tartrate 25 MG TAB PO SCH ×2 (09:11→20:23)
[2019-04-13] MEDS: Gabapentin 300 MG CAP PO SCH ×4 (09:11→20:24)
[2019-04-13] MEDS: Saccharomyces boulardii 250 MG CAP PO SCH (09:11)
[2019-04-13] MEDS: Famotidine 20 MG TAB PO SCH (09:11)
[2019-04-13] MEDS: Sodium Chloride 0.9% 1,000 ML IV SCH (09:13)
[2019-04-13] MEDS: Vancomycin HCl 1.75 GM in Sodium Chloride 0.9% 500 ML IVPB SCH (09:13)
[2019-04-13] MEDS: Insulin Glargine 40 UNITS in Pre-Filled Syringe 1 EACH SC SCH (09:14)
[2019-04-13] MEDS: HumaLOG 300 UNITS/3 ML VIAL SC PRN (11:29)
[2019-04-13] MEDS: Piperacillin/Tazobactam 3.375 GM in Sodium Chloride 0.9% 100 ML IVPB SCH ×3 (11:29→23:30)
--- NOTE | 2019-04-13 13:05 | HP ---
PRIMARY CARE PHYSICIAN: [facility], [place]. REASON FOR ADMISSION: Right diabetic toe ulcer. HISTORY OF PRESENT ILLNESS: A 68-year-old male, who has underlying colon cancer. He is getting chemotherapy, who presented to emergency room for right little toe ulcer on the lateral aspect. The patient noticed this ulcer about 2 to 3 weeks ago, but it was gradually getting worse and that is why his forced him to go to doctor's appointment. He was evaluated at [facility], [place] and subsequently, he was sent to emergency room for admission. In the emergency room, x-ray was negative for any osteomyelitis. The patient was having wound and he received vancomycin, Zosyn, Zofran, and IV fluid and subsequently, he was admitted to telemetry floor because of sepsis criteria. The patient denies any fever or chills. He denies any trauma. He denies any stepping on nail. He denies any chest pain or palpitation. He does have diarrhea, which is related with colon cancer and chemotherapy. He denies any abdominal pain. He denies any UTI symptoms. He has to do in-and-out catheter 5 times per day by himself, but he denies any dysuria, hematuria, or increased frequency. REVIEW OF SYSTEMS: CONSTITUTIONAL: Negative for weight loss or gain, ability to conduct usual activities. SKIN: Negative for rash, itching. EYES: Negative for double vision, pain. ENT/MOUTH: Negative for nose bleeding, neck stiffness, pain, tenderness. CARDIOVASCULAR: Negative for palpitations, dyspnea on exertion, orthopnea. RESPIRATORY: Negative for shortness of breath, wheezing, cough, hemoptysis, fever or night sweats. GASTROINTESTINAL: Negative for poor appetite, abdominal pain, heartburn, nausea, vomiting, constipation, or diarrhea. GENITOURINARY: Negative for urgency, frequency, dysuria, nocturia. MUSCULOSKELETAL: Negative for pain, swelling. NEUROLOGIC/PSYCHIATRIC: Negative for anxiety, depression. ALLERGY/IMMUNOLOGIC: Negative for skin rash, bleeding tendency. Please see my HPI for pertinent positives and negatives. All other review of systems reviewed and negative except as mentioned in HPI. PAST MEDICAL HISTORY: Colon cancer, treated with surgery and chemotherapy; paroxysmal atrial fibrillation, required ablation in the past; diabetes type 2, on insulin; hypertension; diabetic neuropathy; restless legs syndrome; obesity; obstructive sleep apnea; arthritis. PAST SURGICAL HISTORY: Colectomy, MediPort placement, cholecystectomy, tonsillectomy, liver resection, right fourth digit amputation, hernia repair. PAST PSYCHIATRIC HISTORY: Anxiety and depression. SOCIAL HISTORY: The patient is , lives at home with his . No history of tobacco, alcohol, or illicit drug abuse. FAMILY HISTORY: No family history of coronary artery disease, stroke, or cancer. ALLERGIES: NO KNOWN DRUG ALLERGIES. CURRENT HOME MEDICATIONS: 1. Gabapentin 300 mg p.o. t.i.d. and 600 mg at bedtime. 2. Glipizide 10 mg twice daily. 3. Metoprolol 12.5 mg twice daily. 4. Lisinopril 20 mg daily. 5. Janumet mg one tablet twice daily. 6. Lipitor 20 mg p.o. q.h.s. 7. Levemir 40 units subcu in the morning and 30 units at bedtime. 8. Warfarin 5 mg p.o. daily. EMERGENCY ROOM COURSE: The patient is given vancomycin, Zosyn, IV fluid, and Zofran. PHYSICAL EXAMINATION: VITAL SIGNS: Currently, blood pressure 163/89, pulse 98 and irregular, respiratory rate 18, temperature 97.8, saturation 99% on room air, weight 97.5 kg. GENERAL: The patient is currently alert, awake. No obvious acute distress. HEENT: Head; normocephalic, atraumatic. Eyes; pupils round, reactive to light. Extraocular muscle intact. ENT; oropharynx within normal limits. Moist mucous membranes. No oral lesion. No pharyngeal erythema. No exudate. NECK: Supple. No JVD. No thyromegaly. No carotid bruit. No jugular venous distention. LUNGS: Clear to auscultation without any rhonchi or rales. CARDIAC: S1 and S2 appears irregular. No murmur. No gallop. No rub. ABDOMEN: Soft. Bowel sounds present. Nontender, nondistended. No organomegaly. No mass. No suprapubic tenderness. BACK: Unremarkable. No CVA tenderness. EXTREMITIES: Upper extremity; passive movement of all joints are normal. Lower extremity; the patient does have right fourth digit amputation, but the patient does have ulcer present on the right foot at the base of the fifth digit. There is minimal surrounding erythema. HEMATOLOGIC: No lymphadenopathy. PSYCHIATRIC: Normal affect. SIGNIFICANT LABORATORY DATA: X-ray, foot, showing no evidence of osteomyelitis. CBC; WBC 7.8, hemoglobin 12.0, platelet 239. INR 1.7. Sodium 131, potassium 4.8, chloride 99, carbon dioxide 22, BUN 29, creatinine 1.93, glucose 321, calcium 9.5, AST 24, ALT 23, alkaline phosphatase 78, albumin 3.9. Lactic acid 2.5. Urinalysis suggestive of UTI. ASSESSMENT AND PLAN: 1. Sepsis. 2. Urinary tract infection, related with in-and-out catheter self-catheterization. 3. Lactic acidosis due to sepsis. 4. Diabetic toe ulcer, infected. 5. Obstructive sleep apnea. 6. Obesity. 7. Hypertension. 8. History of colon cancer, on chemotherapy. 9. Chronic kidney disease, stage 3. 10. Chronic anticoagulation with warfarin. 11. Paroxysmal atrial fibrillation. 12. Anemia of chronic disease. PLAN: 1. The patient will be admitted to telemetry floor. We will continue with gentle IV fluid NS at 70 mL/h. We will continue with vancomycin and Zosyn as per renally adjusted dose. We will resume the patient's all home medication. We will monitor PT/INR daily and labs that we will repeat tomorrow. Wound Care Team will be consulted. The patient will not need any Surgical evaluation during this admission at this point. 2. Deep venous thrombosis prophylaxis; the patient is already on warfarin therapy. GI prophylaxis; Pepcid 20 mg p.o. daily. CODE STATUS: The patient is full code. The patient's is surrogate decision maker. DISPOSITION PLAN: Based on clinical course, we are expecting the patient's stay in hospital more than 2 midnights. Plan of care discussed with the patient in detail. Job ID: [id number]
[2019-04-13 14:20] VITALS: BMI 30.4
[2019-04-13] MEDS: Atorvastatin Calcium 20 MG TAB PO SCH (20:23)
[2019-04-13] MEDS ORDERED: Non-Formulary Item 1 EACH (Insulin Detemir [Levemir] 30 UNIT) SQ SCH (21:00)
[2019-04-13] MEDS: Insulin Glargine 30 UNITS in Pre-Filled Syringe 1 EACH SC SCH (21:06)
[2019-04-14] MEDS: Sodium Chloride 0.9% 1,000 ML IV SCH (05:34)
[2019-04-14] MEDS: Piperacillin/Tazobactam 3.375 GM in Sodium Chloride 0.9% 100 ML IVPB SCH ×3 (05:34→18:51)
[2019-04-14 07:58] LABS: #Basophils 0.1 thou/uL (0.0-0.2); #Eosinphils 0.3 thou/uL (0.0-0.7); #Lymphocytes 0.8 thou/uL (1.20-3.40); #Monocytes 0.2 thou/uL (0.11-0.59); #Neutrophils 4.5 thou/uL (1.40-6.50); %Basophils 0.9 % (0.0-1.0); %Eosinophils 4.8 % (0.0-10.0); %Lymphocytes 13.6 % (21.0-51.0); %Monocytes 4.1 % (0.0-10.0); %Neutrophils 76.6 % (42.0-75.0); Hemoglobin 11.6 g/dL (14.0-18.0); Mean Corpuscular HGB CONC 34.7 g/dL (32.0-36.0); Mean Corpuscular Hemoglobin 33.9 pg (27.0-31.0); Mean Corpuscular Volume 97.6 fL (78.0-98.0); Mean Platelet Volume 7.2 fL (7.4-10.4); Platelet Count 210 thou/uL (130-400); RBC Distribution Width 12.9 % (11.5-14.5); Red Blood Cell (RBC) Count 3.43 mill/uL (4.70-6.10); White Blood Cell (WBC) Count 5.9 thou/uL (4.8-10.8)
[2019-04-14 08:00] LABS: INR-International Normal Ratio 1.8; Prothrombin Time 20.5 SEC (12.0-14.7)
[2019-04-14 08:11] LABS: Lactic Acid 1.8 mmol/L (0.5-2.2)
[2019-04-14 08:19] LABS: ALT (SGPT) 22 U/L (8-55); AST (SGOT) 21 U/L (5-34); Albumin 3.3 g/dL (3.4-4.8); Alkaline Phosphatase 67 U/L (40-150); Anion Gap 10 mmol/L (10-20); BUN (Urea Nitrogen) 16 mg/dL (8.4-25.7); Bilirubin, Total 0.6 mg/dL (0.2-1.2); CRP (Inflammatory) 0.91 mg/dL (= or < 0.5); Calc. Creatinine Clearance 68 mL/min (70-130); Calcium 8.9 mg/dL (7.8-10.44); Carbon Dioxide 23 mmol/L (23-31); Chloride 106 mmol/L (98-107); Estimated GFR-MDRD 49; Globulin 3.1 g/dL (2.4-3.5); Glucose 107 mg/dL (80-115); Potassium 3.9 mmol/L (3.5-5.1); Protein, Total 6.4 g/dL (5.8-8.1); Sodium 135 mmol/L (136-145)
[2019-04-14] MEDS ORDERED: Sodium Chloride 0.9% 10 ML ONE (09:04)
[2019-04-14] MEDS: Insulin Glargine 40 UNITS in Pre-Filled Syringe 1 EACH SC SCH (09:48)
[2019-04-14] MEDS: glipiZIDE 10 MG TAB PO SCH ×2 (09:49→20:49)
[2019-04-14] MEDS: Gabapentin 300 MG CAP PO SCH ×4 (09:49→20:49)
[2019-04-14] MEDS: Metoprolol Tartrate 25 MG TAB PO SCH ×2 (09:49→20:49)
[2019-04-14] MEDS: Famotidine 20 MG TAB PO SCH (09:49)
[2019-04-14] MEDS: Saccharomyces boulardii 250 MG CAP PO SCH (09:51)
[2019-04-14] MEDS: Vancomycin HCl 1.75 GM in Sodium Chloride 0.9% 500 ML IVPB SCH (10:07)
--- NOTE | 2019-04-14 11:22 | PDOC.PN ---
- Subjective Encounter Start Date: 04/14/19 Encounter Start Time: 08:30 -: old records requested/rev Patient seen and examined. No new complaints. No overnight events - Objective Resuscitation Status - Order Detail: 04/13/19 07:06 Resuscitation Status Routine Resuscitation Status: FULL: Full Resuscitation MAR Reviewed: Yes Vital Signs & Weight: Vital Signs (12 hours) Temp Pulse Resp BP Pulse Ox 04/14/19 08:00 98.1 F 90 18 151/90 H 98 04/14/19 05:46 98 04/14/19 03:05 98.2 F 78 14 158/76 H 98 Weight Admit Weight 220 lb 8 oz Weight 218 lb 9.6 oz I&O: 04/13/19 04/14/19 04/15/19 06:59 06:59 06:59 Intake Total 2110 Output Total 1800 Balance 310 Result Diagrams: 04/14/19 07:21 04/14/19 07:21 Additional Labs: Accuchecks 04/14/19 04/13/19 04/13/19 05:53 20:26 17:19 POC Glucose 114 H 185 H 188 H EKG Reviewed by me: Yes Phys Exam - Physical Examination Constitutional: NAD HEENT: PERRLA, moist MMs, sclera anicteric, oral pharynx no lesions Neck: no JVD, supple Respiratory: no wheezing, no rales, no rhonchi Cardiovascular: no significant murmur, irregular Gastrointestinal: soft, non-tender, no distention, positive bowel sounds Musculoskeletal: no edema, pulses present diabetic toe ulcer with dressing Neurological: non-focal, normal sensation, moves all 4 limbs Lymphatic: no nodes Psychiatric: normal affect, A&O x 3 Skin: no rash, normal turgor Dx/Plan (1) Lactic acidosis Code(s): E87.2 - ACIDOSIS Status: Acute (2) Sepsis Code(s): A41.9 - SEPSIS, UNSPECIFIED ORGANISM Status: Acute (3) UTI (urinary tract infection) Status: Acute (4) Anemia of chronic disease Code(s): D63.8 - ANEMIA IN OTHER CHRONIC DISEASES CLASSIFIED ELSEWHERE Status : Chronic (5) Anxiety and depression Code(s): F41.9 - ANXIETY DISORDER, UNSPECIFIED; F32.9 - MAJOR DEPRESSIVE DISORDER, SINGLE EPISODE, UNSPECIFIED Status: Chronic (6) Atrial fibrillation Code(s): I48.91 - UNSPECIFIED ATRIAL FIBRILLATION Status: Chronic Qualifiers: (7) CKD (chronic kidney disease) stage 3, GFR 30-59 ml/min Code(s): N18.3 - CHRONIC KIDNEY DISEASE, STAGE 3 (MODERATE) Status: Chronic (8) Chronic anticoagulation Code(s): Z79.01 - RETIREMENT (CURRENT) USE OF ANTICOAGULANTS Status: Chronic (9) Diabetes type 2, uncontrolled Code(s): E11.65 - TYPE 2 DIABETES MELLITUS WITH HYPERGLYCEMIA Status: Chronic Comment: (10) H/O malignant neoplasm of colon Code(s): Z85.038 - PERSONAL HISTORY OF MALIGNANT NEOPLASM OF LARGE INTESTINE Status: Chronic (11) Hypertension Code(s): I10 - ESSENTIAL (PRIMARY) HYPERTENSION Status: Chronic Qualifiers: (12) ESE (obstructive sleep apnea) Code(s): G47.33 - OBSTRUCTIVE SLEEP APNEA (ADULT) (PEDIATRIC) Status: Chronic (13) Obesity (BMI 30-39.9) Code(s): E66.9 - OBESITY, UNSPECIFIED Status: Chronic - Plan cont current plan of care, continue antibiotics * continue vancomycin and zosyn * medication reviewed as below * symptomatic treatment * wound care. Review of Systems - Review of Systems ENT: negative: Ear Pain, Ear Discharge, Nose Pain, Nose Discharge, Nose Congestion, Mouth Pain, Mouth Swelling, Throat Pain, Throat Swelling, Other Respiratory: negative: Cough, Dry, Shortness of Breath, Hemoptysis, SOB with Excertion, Pleuritic Pain, Sputum, Wheezing Cardiovascular: negative: chest pain, palpitations, orthopnea, paroxysmal nocturnal dyspnea, edema, light headedness, other Gastrointestinal: negative: Nausea, Vomiting, Abdominal Pain, Diarrhea, Constipation, Melena, Hematochezia, Other Genitourinary: negative: Dysuria, Frequency, Incontinence, Hematuria, Retention , Other Musculoskeletal: negative: Neck Pain, Shoulder Pain, Arm Pain, Back Pain, Hand Pain, Leg Pain, Foot Pain, Other - Medications/Allergies Allergies/Adverse Reactions: Allergies Allergy/AdvReac Type Severity Reaction Status Date / Time No Known Allergies Allergy Verified 04/13/19 03:57 Medications: Current Medications Acetaminophen (Tylenol) 650 mg PO Q4H PRN PRN Reason: Headache/Fever/Mild Pain (1-3) Hydrocodone Bitart/Acetaminophen ([place] 5/325) 1 tab PO Q4H PRN PRN Reason: Moderate Pain (4-6) Artificial Tears (Tears Naturale) 2 drop EA EYE PRN PRN PRN Reason: Dry Eyes Atorvastatin Calcium (Lipitor) 20 mg PO [facility] Last Admin: 04/13/19 20:23 Dose: 20 mg Bisacodyl (Dulcolax) 10 mg ND DAILYPRN PRN PRN Reason: Constipation Calcium Carbonate (Tums) 1,000 mg PO Q4H PRN PRN Reason: Heartburn or Indigestion Dextrose/Water (Dextrose 50%) 25 gm SLOW IVP PRN PRN PRN Reason: Hypoglycemia Diphenoxylate HCl/Atropine (Lomotil) 1 tab PO Q6H PRN PRN Reason: Diarrhea/Loose Stools Famotidine (Pepcid) 20 mg PO DAILY [facility] Last Admin: 04/14/19 09:49 Dose: 20 mg Gabapentin (Neurontin) 300 mg PO TID [facility] Last Admin: 04/14/19 09:49 Dose: 300 mg Gabapentin (Neurontin) 600 mg PO [facility] Last Admin: 04/13/19 20:24 Dose: 600 mg Glipizide (Glucotrol) 10 mg PO BID [facility] Last Admin: 04/14/19 09:49 Dose: 10 mg Glucagon (Glucagon) 1 mg IM PRN PRN PRN Reason: Hypoglycemia Guaifenesin (Robitussin Sf) 200 mg PO Q4H PRN PRN Reason: Cough Hydralazine HCl (Apresoline) 10 mg SLOW IVP Q4H PRN PRN Reason: SBP > 180 and HR < 70 Piperacillin Sod/Tazobactam (Sod 3.375 gm/ Sodium Chloride) 100 mls @ 200 mls/ hr IVPB Q6HR [facility] Last Admin: 04/14/19 05:34 Dose: 100 mls Dextrose/Water (D5w) 1,000 mls @ 0 mls/hr IV .Q0M PRN PRN Reason: Hypoglycemia Sodium Chloride (Normal Saline 0.9%) 1,000 mls @ 70 mls/hr IV .[id number] [facility] Last Admin: 04/14/19 05:34 Dose: 1,000 mls Insulin Glargine 30 units/ (Miscellaneous Medication) 0.3 mls @ 0 mls/hr [facility] Last Admin: 04/13/19 21:06 Dose: 0.3 mls Insulin Glargine 40 units/ (Miscellaneous Medication) 0.4 mls @ 0 mls/hr SC QAM [facility] Last Admin: 04/14/19 09:48 Dose: 0.4 mls Vancomycin HCl 1.75 gm/ Sodium (Chloride) 500 mls @ 250 mls/hr IVPB Q24H [facility] Last Admin: 04/14/19 10:07 Dose: 500 mls Insulin Human Lispro (Humalog) 0 units SC .MODERATE SLIDING SC PRN PRN Reason: Moderate Correctional Scale Last Admin: 04/13/19 11:29 Dose: 6 units Insulin Human Lispro (Humalog) 0 units SC .BEDTIME SLIDING SC PRN PRN Reason: Bedtime Correctional Scale Loperamide HCl (Imodium) 2 mg PO PRN PRN PRN Reason: Diarrhea/Loose Stools Loratadine (Claritin) 10 mg PO DAILYPRN PRN PRN Reason: Sinus Symptoms Metoprolol Tartrate (Lopressor) 12.5 mg PO BID [facility] Last Admin: 04/14/19 09:49 Dose: 12.5 mg Miscellaneous Medication (Pharmacy To Dose) 0 each IVPB PRN PRN PRN Reason: Pharmacy to dose Nitroglycerin (Nitrostat) 0.4 mg SL Q5MIN PRN PRN Reason: Chest Pain Ondansetron HCl (Zofran Odt) 4 mg PO Q6H PRN PRN Reason: Nausea/Vomiting Last Admin: 04/13/19 08:28 Dose: 4 mg Ondansetron HCl (Zofran) 4 mg IVP Q6H PRN PRN Reason: Nausea/Vomiting Saccharomyces Boulardii (Florastor) 250 mg PO DAILY [facility] Last Admin: 04/14/19 09:51 Dose: 250 mg Senna/Docusate Sodium (Senokot S) 2 tab PO BID PRN PRN Reason: Constipation Sodium Chloride ([place] Nasal [place] 0.65%) 0 ml EA NARE QIDPRN PRN PRN Reason: Nasal Congestion Throat Lozenges (Cepastat Lozenges) 1 ghada PO Q2H PRN PRN Reason: Sore Throat Warfarin Sodium (Coumadin) 5 mg PO 1700 ANDREA Zolpidem Tartrate (Ambien) 5 mg PO HSPRN PRN PRN Reason: Insomnia
[2019-04-14] MEDS ORDERED: Warfarin Sodium 5 MG TAB PO SCH (17:00)
[2019-04-14] MEDS: Atorvastatin Calcium 20 MG TAB PO SCH (20:50)
[2019-04-14] MEDS: Insulin Glargine 30 UNITS in Pre-Filled Syringe 1 EACH SC SCH (20:50)
[2019-04-15] MEDS: Piperacillin/Tazobactam 3.375 GM in Sodium Chloride 0.9% 100 ML IVPB SCH ×4 (00:37→17:01)
[2019-04-15] MEDS: Sodium Chloride 0.9% 1,000 ML IV SCH ×2 (00:44→22:03)
[2019-04-15 05:23] LABS: INR-International Normal Ratio 1.6; Prothrombin Time 18.9 SEC (12.0-14.7)
[2019-04-15] MEDS ORDERED: Warfarin Sodium 5 MG TAB PO SCH (08:09)
[2019-04-15] MEDS: Insulin Glargine 40 UNITS in Pre-Filled Syringe 1 EACH SC SCH (09:06)
[2019-04-15] MEDS ORDERED: VANCOMYCIN IVPB PRN (09:30)
[2019-04-15] MEDS: Famotidine 20 MG TAB PO SCH (09:31)
[2019-04-15] MEDS: Gabapentin 300 MG CAP PO SCH ×4 (09:31→20:26)
[2019-04-15] MEDS: Saccharomyces boulardii 250 MG CAP PO SCH (09:31)
[2019-04-15] MEDS: Metoprolol Tartrate 25 MG TAB PO SCH ×2 (09:32→20:26)
[2019-04-15] MEDS: glipiZIDE 10 MG TAB PO SCH ×2 (09:35→20:26)
[2019-04-15 10:04] LABS: Vancomycin, Random 14.7 ug/mL (See Comment)
[2019-04-15] MEDS: Vancomycin HCl 1.75 GM in Sodium Chloride 0.9% 500 ML IVPB SCH (10:19)
--- NOTE | 2019-04-15 11:33 | PDOC.PN ---
- Subjective Encounter Start Date: 04/15/19 Encounter Start Time: 08:15 Patient seen and examined. No new complaints. No overnight events - Objective Resuscitation Status - Order Detail: 04/13/19 07:06 Resuscitation Status Routine Resuscitation Status: FULL: Full Resuscitation MAR Reviewed: Yes Vital Signs & Weight: Vital Signs (12 hours) Temp Pulse Resp BP Pulse Ox 04/15/19 08:00 98.1 F 95 18 136/67 95 04/15/19 03:43 96 04/15/19 03:12 97.7 F 74 18 136/85 98 Weight Admit Weight 220 lb 8 oz Weight 223 lb 12.8 oz I&O: 04/14/19 04/15/19 04/16/19 06:59 06:59 06:59 Intake Total 2110 2739 Output Total 1800 2400 1600 Balance 310 339 -1600 Result Diagrams: 04/14/19 07:21 04/14/19 07:21 Additional Labs: Accuchecks 04/15/19 04/15/19 04/14/19 06:45 05:58 20:13 POC Glucose 106 57 L* 206 H 04/14/19 17:17 POC Glucose 173 H EKG Reviewed by me: Yes Phys Exam - Physical Examination Constitutional: NAD HEENT: PERRLA, moist MMs, sclera anicteric Neck: no JVD, supple Respiratory: no wheezing, no rales, no rhonchi Cardiovascular: no significant murmur, irregular Gastrointestinal: soft, non-tender, no distention, positive bowel sounds Musculoskeletal: no edema, pulses present wound with dressing Neurological: non-focal, normal sensation, moves all 4 limbs Lymphatic: no nodes Psychiatric: normal affect, A&O x 3 Skin: no rash, normal turgor Dx/Plan (1) Diabetic toe ulcer Code(s): E11.621 - TYPE 2 DIABETES MELLITUS WITH FOOT ULCER; L97.509 - NON- PRESSURE CHRONIC ULCER OTH PRT UNSP FOOT W UNSP SEVERITY Status: Acute (2) Lactic acidosis Code(s): E87.2 - ACIDOSIS Status: Resolved (3) Sepsis Code(s): A41.9 - SEPSIS, UNSPECIFIED ORGANISM Status: Resolved (4) UTI (urinary tract infection) Status: Acute (5) Anemia of chronic disease Code(s): D63.8 - ANEMIA IN OTHER CHRONIC DISEASES CLASSIFIED ELSEWHERE Status : Chronic (6) Anxiety and depression Code(s): F41.9 - ANXIETY DISORDER, UNSPECIFIED; F32.9 - MAJOR DEPRESSIVE DISORDER, SINGLE EPISODE, UNSPECIFIED Status: Chronic (7) Atrial fibrillation Code(s): I48.91 - UNSPECIFIED ATRIAL FIBRILLATION Status: Chronic Qualifiers: (8) CKD (chronic kidney disease) stage 3, GFR 30-59 ml/min Code(s): N18.3 - CHRONIC KIDNEY DISEASE, STAGE 3 (MODERATE) Status: Chronic (9) Chronic anticoagulation Code(s): Z79.01 - GROUP HOME (CURRENT) USE OF ANTICOAGULANTS Status: Chronic (10) Diabetes type 2, uncontrolled Code(s): E11.65 - TYPE 2 DIABETES MELLITUS WITH HYPERGLYCEMIA Status: Chronic Comment: (11) H/O malignant neoplasm of colon Code(s): Z85.038 - PERSONAL HISTORY OF MALIGNANT NEOPLASM OF LARGE INTESTINE Status: Chronic (12) Hypertension Code(s): I10 - ESSENTIAL (PRIMARY) HYPERTENSION Status: Chronic Qualifiers: (13) ESE (obstructive sleep apnea) Code(s): G47.33 - OBSTRUCTIVE SLEEP APNEA (ADULT) (PEDIATRIC) Status: Chronic (14) Obesity (BMI 30-39.9) Code(s): E66.9 - OBESITY, UNSPECIFIED Status: Chronic - Plan cont current plan of care, continue antibiotics * medication reviewed as below * symptomatic treatment * continue IV antibiotics. * wound care Review of Systems - Review of Systems ENT: negative: Ear Pain, Ear Discharge, Nose Pain, Nose Discharge, Nose Congestion, Mouth Pain, Mouth Swelling, Throat Pain, Throat Swelling, Other Respiratory: negative: Cough, Dry, Shortness of Breath, Hemoptysis, SOB with Excertion, Pleuritic Pain, Sputum, Wheezing Cardiovascular: negative: chest pain, palpitations, orthopnea, paroxysmal nocturnal dyspnea, edema, light headedness, other Gastrointestinal: negative: Nausea, Vomiting, Abdominal Pain, Diarrhea, Constipation, Melena, Hematochezia, Other Genitourinary: negative: Dysuria, Frequency, Incontinence, Hematuria, Retention , Other Musculoskeletal: negative: Neck Pain, Shoulder Pain, Arm Pain, Back Pain, Hand Pain, Leg Pain, Foot Pain, Other - Medications/Allergies Allergies/Adverse Reactions: Allergies Allergy/AdvReac Type Severity Reaction Status Date / Time No Known Allergies Allergy Verified 04/13/19 03:57 Medications: Current Medications Acetaminophen (Tylenol) 650 mg PO Q4H PRN PRN Reason: Headache/Fever/Mild Pain (1-3) Hydrocodone Bitart/Acetaminophen ([place] 5/325) 1 tab PO Q4H PRN PRN Reason: Moderate Pain (4-6) Artificial Tears (Tears Naturale) 2 drop EA EYE PRN PRN PRN Reason: Dry Eyes Atorvastatin Calcium (Lipitor) 20 mg PO [facility] Last Admin: 04/14/19 20:50 Dose: 20 mg Bisacodyl (Dulcolax) 10 mg SC DAILYPRN PRN PRN Reason: Constipation Calcium Carbonate (Tums) 1,000 mg PO Q4H PRN PRN Reason: Heartburn or Indigestion Dextrose/Water (Dextrose 50%) 25 gm SLOW IVP PRN PRN PRN Reason: Hypoglycemia Diphenoxylate HCl/Atropine (Lomotil) 1 tab PO Q6H PRN PRN Reason: Diarrhea/Loose Stools Famotidine (Pepcid) 20 mg PO DAILY [facility] Last Admin: 04/15/19 09:31 Dose: 20 mg Gabapentin (Neurontin) 300 mg PO TID [facility] Last Admin: 04/15/19 09:31 Dose: 300 mg Gabapentin (Neurontin) 600 mg PO [facility] Last Admin: 04/14/19 20:49 Dose: 600 mg Glipizide (Glucotrol) 10 mg PO BID [facility] Last Admin: 04/15/19 09:35 Dose: 10 mg Glucagon (Glucagon) 1 mg IM PRN PRN PRN Reason: Hypoglycemia Guaifenesin (Robitussin Sf) 200 mg PO Q4H PRN PRN Reason: Cough Hydralazine HCl (Apresoline) 10 mg SLOW IVP Q4H PRN PRN Reason: SBP > 180 and HR < 70 Piperacillin Sod/Tazobactam (Sod 3.375 gm/ Sodium Chloride) 100 mls @ 200 mls/ hr IVPB Q6HR [facility] Last Admin: 04/15/19 05:31 Dose: 100 mls Dextrose/Water (D5w) 1,000 mls @ 0 mls/hr IV .Q0M PRN PRN Reason: Hypoglycemia Insulin Glargine 30 units/ (Miscellaneous Medication) 0.3 mls @ 0 mls/hr SC [facility] Last Admin: 04/14/19 20:50 Dose: 0.3 mls Insulin Glargine 40 units/ (Miscellaneous Medication) 0.4 mls @ 0 mls/hr SC [facility] Last Admin: 04/15/19 09:06 Dose: 0.4 mls Vancomycin HCl 1.75 gm/ Sodium (Chloride) 500 mls @ 250 mls/hr IVPB Q24H [facility] Insulin Human Lispro (Humalog) 0 units SC .MODERATE SLIDING SC PRN PRN Reason: Moderate Correctional Scale Last Admin: 04/13/19 11:29 Dose: 6 units Insulin Human Lispro (Humalog) 0 units SC .BEDTIME SLIDING SC PRN PRN Reason: Bedtime Correctional Scale Loperamide HCl (Imodium) 2 mg PO PRN PRN PRN Reason: Diarrhea/Loose Stools Loratadine (Claritin) 10 mg PO DAILYPRN PRN PRN Reason: Sinus Symptoms Metoprolol Tartrate (Lopressor) 12.5 mg PO BID [facility] Last Admin: 04/15/19 09:32 Dose: 12.5 mg Miscellaneous Medication (Pharmacy To Dose) 0 each IVPB PRN PRN PRN Reason: Pharmacy to dose Nitroglycerin (Nitrostat) 0.4 mg SL Q5MIN PRN PRN Reason: Chest Pain Ondansetron HCl (Zofran Odt) 4 mg PO Q6H PRN PRN Reason: Nausea/Vomiting Last Admin: 04/13/19 08:28 Dose: 4 mg Ondansetron HCl (Zofran) 4 mg IVP Q6H PRN PRN Reason: Nausea/Vomiting Saccharomyces Boulardii (Florastor) 250 mg PO DAILY [facility] Last Admin: 04/15/19 09:31 Dose: 250 mg Senna/Docusate Sodium (Senokot S) 2 tab PO BID PRN PRN Reason: Constipation Sodium Chloride ([place] Nasal [place] 0.65%) 0 ml EA NARE QIDPRN PRN PRN Reason: Nasal Congestion Throat Lozenges (Cepastat Lozenges) 1 ghada PO Q2H PRN PRN Reason: Sore Throat Warfarin Sodium (Coumadin) 7.5 mg PO 1700 ANDREA Zolpidem Tartrate (Ambien) 5 mg PO HSPRN PRN PRN Reason: Insomnia
[2019-04-15] MEDS ORDERED: Warfarin Sodium 7.5 MG TAB PO SCH (17:00)
[2019-04-15] MEDS: Atorvastatin Calcium 20 MG TAB PO SCH (20:26)
[2019-04-15] MEDS: Insulin Glargine 30 UNITS in Pre-Filled Syringe 1 EACH SC SCH (20:29)
[2019-04-16] MEDS: Piperacillin/Tazobactam 3.375 GM in Sodium Chloride 0.9% 100 ML IVPB SCH ×3 (01:06→13:11)
[2019-04-16 05:07] LABS: INR-International Normal Ratio 1.5; Prothrombin Time 18.1 SEC (12.0-14.7)
[2019-04-16 07:34] VITALS: TEMP 98.9
[2019-04-16] MEDS: Insulin Glargine 40 UNITS in Pre-Filled Syringe 1 EACH SC SCH (09:08)
[2019-04-16] MEDS: Famotidine 20 MG TAB PO SCH (09:09)
[2019-04-16] MEDS: Metoprolol Tartrate 25 MG TAB PO SCH (09:09)
[2019-04-16] MEDS: glipiZIDE 10 MG TAB PO SCH (09:09)
[2019-04-16] MEDS: Saccharomyces boulardii 250 MG CAP PO SCH (09:09)
[2019-04-16] MEDS: Gabapentin 300 MG CAP PO SCH (09:09)
[2019-04-16] MEDS ORDERED: Vancomycin HCl 1.75 GM in Sodium Chloride 0.9% 500 ML IVPB SCH (10:00)
--- NOTE | 2019-04-16 10:19 | PQF ---
RAUDEL OCASIO SALIM NOORJIBHAI MD [id number] CLINICAL DOCUMENTATION IMPROVEMENT CLARIFICATION FORM: ICD-10 Updated PLEASE DO AN ADDENDUM TO THE PROGRESS NOTE WITH ANY DOCUMENTATION UPDATES OR ADDITIONS AND CARRY THROUGH TO DC SUMMARY. THANK YOU. DATE: 04/16 ATTN: DR. LEANN ESTRELLA Please exercise your independent, professional judgment in responding to the clarification form. Clinical indicators are provided on the bottom of this form for your review. Please check appropriate box(es): [ x ] Sepsis D/T SELF IN-AND-OUT CATHETERIZATION [ ] Sepsis NOT D/T SELF IN-AND-OUT CATHETERIZATION [ ] Sepsis D/T R DIABETIC TOE ULCER [ ] Sepsis NOT D/T R DIABETIC TOE ULCER [ x ] Other diagnosis _sepsis due to also diabetic toe ulcer infection [ ] Unable to determine In addition, please specify: Present on Admission (POA): [ x ] Yes [ ] No [ ] Unable to determine For continuity of documentation, please document condition throughout progress notes and discharge summary. Thank You. 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 THANK YOU. DATE: 04/16 ATTN: DR. LEANN ESTRELLA Please exercise your independent, professional judgment in responding to the clarification form. Clinical indicators are provided on the bottom of this form for your review. Please check appropriate box(es): [ ] Sepsis D/T SELF IN-AND-OUT CATHETERIZATION [ ] Sepsis NOT D/T SELF IN-AND-OUT CATHETERIZATION [ ] Sepsis D/T R DIABETIC TOE ULCER [ ] Sepsis NOT D/T R DIABETIC TOE ULCER [ ] Other diagnosis [ ] Unable to determine In addition, please specify: Present on Admission (POA): [ ] Yes [ ] No [ ] Unable to determine For continuity of documentation, please document condition throughout progress notes and discharge summary. Thank You. CLINICAL INDICATORS - SIGNS / SYMPTOMS / LABS H&P 04/13 ([facility]): REASON FOR ADMISSION: RIGHT DIABETIC TOE ULCER; HX PRESENT ILLNESS: HE HAS TO DO IN/OUT CATHETER 5 TIMES PER DAY BY HIMSELF H&P ASSESSMENT/PLAN: 1) SEPSIS; 2) UTI, R/W IN-AND-OUT CATHETER SELF- CATHETERIZATION; 4) DIABETIC TOE ULCER, INFECTED PN 04/14 ([facility]): 2) SEPSIS; 3) UTI PN 04/15 ([facility]): 1) ACUTE DIABETIC TOE ULCER; 3) SEPSIS; 4) UTI RISKS: R DIABETIC TOE ULCER UTI R/T IN-AND-OUT SELF CATHETERIZATION TREATMENT: IV ANTIBIOTICS (VANCOMYCIN & ZOSYN, 04/12 - PRESENT) IVF (2L NS IN ED, 04/12) WOUND CARE CONSULT (04/13) THANK YOU! Jackie (This form is maintained as a part of the permanent medical record) 2014 [employer]. All Rights Reserved Jackie Odom RN, BSN [email or web address] Office: [phone] TREATMENT: IV ANTIBIOTICS (VANCOMYCIN & ZOSYN, 04/12 - PRESENT) IVF (2L NS IN ED, 04/12) WOUND CARE CONSULT (04/13) (This form is maintained as a part of the permanent medical record) 2014 [employer], [employer]. All Rights Reserved Jackie Odom RN, BSN [email or web address] Office: [phone] [facility]
--- NOTE | 2019-04-16 11:48 | DIS ---
DATE OF ADMISSION: 04/12/2019 DATE OF DISCHARGE: 04/16/2019 DISCHARGE DISPOSITION: [facility] admission. DISCHARGE DISPOSITION: Home. PRIMARY DISCHARGE DIAGNOSES: 1. Sepsis, resolved. 2. Urinary tract infection due to in and out catheterization by himself. 3. Diabetic toe ulcer infection. SECONDARY DISCHARGE DIAGNOSES: Obstructive sleep apnea, obesity, hypertension, history of colon cancer, diabetes type 2, chronic kidney disease stage 3, chronic anticoagulation, chronic atrial fibrillation, anxiety and depression, and anemia of chronic disease. PRIMARY PROCEDURE/OPERATION: None. RADIOLOGICAL INVESTIGATION: Foot x-ray negative for any osteomyelitis. SIGNIFICANT LABORATORY DATA: WBC 5.9, hemoglobin 11.6, and platelet 210. INR 1.5. Sodium 135, creatinine 1.42. Electrolytes normal. LFT normal. CRP 0.91. Urinalysis suggestive of UTI. Blood culture negative. DISCHARGE MEDICATIONS: 1. Augmentin 875 mg p.o. b.i.d. for 7 days. 2. Florastor 250 mg p.o. daily for 7 days. The patient will continue following scheduled medication; 1. Lipitor 20 mg p.o. at bedtime. 2. Gabapentin 300 mg p.o. t.i.d. and 600 mg p.o. at bedtime. 3. Glipizide 10 mg p.o. b.i.d. 4. Levemir 30 units subcu at bedtime and 40 units in the morning. 5. Metoprolol 12.5 mg p.o. b.i.d. 6. Warfarin 5 mg p.o. daily. CONTRAINDICATION: None. CODE STATUS: Full code. INPATIENT PIPELINE SUPERINTENDENT DIVISION: None. ALLERGIES: NO KNOWN DRUG ALLERGIES. DISCHARGE PLAN: Posthospital, the patient will follow up with primary care physician in 1 week. The patient is given necessary education about wound care. HOSPITAL COURSE: A 68-year-old male, who was admitted by me on April 13, 2019. Please see my HPI for further details. On admission, the patient was having sepsis criteria. He was having lactic acidosis. He had 2 source of infection, 1 is urinary tract infection based on his urinalysis. This patient is doing in and out catheter by himself that might have contributed to his UTI and second, he also had a diabetic toe ulcer infection on the right foot, required wound care while in the hospital. His foot x-ray was negative for any osteomyelitis. We continued with vancomycin and Zosyn while in hospital. We continued all his home medication while in hospital. The patient had significant improvement. The patient did not require any further surgical procedure. On discharge, we are changing to Augmentin for another 7 days. The patient will continue all his previous scheduled medication. We have consulted rehabilitation caseworker to arrange wound care before discharge. PHYSICAL EXAMINATION: I have seen and examined the patient at bedside today. VITAL SIGNS: Currently; temperature 98.9, pulse 84, respiratory rate 16, saturation 99%, and blood pressure 140/79. Weight 220 pounds. GENERAL: The patient is currently alert and awake, in no obvious acute distress. HEENT: Head; normocephalic and atraumatic. Eyes; pupils are round and reactive to light. Extraocular muscle intact. ENT, oropharynx within normal limits. LUNGS: Clear without any rhonchi. CARDIAC: S1 and S2 regular. No murmur. ABDOMEN: Soft and benign. EXTREMITIES: No edema. NEUROLOGIC: Nonfocal examination. Job ID: [id number]
[2019-04-16] MEDS: HumaLOG 300 UNITS/3 ML VIAL SC PRN (12:25)
[2019-04-16 12:40] VITALS: BP 127/65
== END 2019-04-16 14:42 | disposition home or self-care (01) | DRG 698 ==
LOC: ERS 17:55 → 2NO 22:49
PROVIDERS: ADMIT Internal Medicine; ATTEND Internal Medicine
DX: T83.518A Infection and inflammatory reaction due to other urinary catheter, initial encounter (principal); A41.9 Sepsis, unspecified organism; E87.2 Acidosis; N39.0 Urinary tract infection, site not specified; E11.621 Type 2 diabetes mellitus with foot ulcer; L97.519 Non-pressure chronic ulcer of other part of right foot with unspecified severity; E11.40 Type 2 diabetes mellitus with diabetic neuropathy, unspecified; G25.81 Restless legs syndrome; E66.9 Obesity, unspecified; M19.90 Unspecified osteoarthritis, unspecified site; F41.9 Anxiety disorder, unspecified; F32.9 Major depressive disorder, single episode, unspecified; I48.0 Paroxysmal atrial fibrillation; Y84.6 Urinary catheterization as the cause of abnormal reaction of the patient, or of later complication, without mention of misadventure at the time of the procedure; E11.22 Type 2 diabetes mellitus with diabetic chronic kidney disease; N18.3 Chronic kidney disease, stage 3 (moderate); I12.9 Hypertensive chronic kidney disease with stage 1 through stage 4 chronic kidney disease, or unspecified chronic kidney disease; D63.8 Anemia in other chronic diseases classified elsewhere; G47.33 Obstructive sleep apnea (adult) (pediatric); Z79.4 Long term (current) use of insulin; Z85.038 Personal history of other malignant neoplasm of large intestine; Z90.49 Acquired absence of other specified parts of digestive tract; Z79.01 Long term (current) use of anticoagulants; Z79.899 Other long term (current) drug therapy; Z68.31 Body mass index [BMI] 31.0-31.9, adult
CPT/HCPCS: 36415; 36416; 80053; 80202; 81003; 81015; 82248; 82378; 83605; 83615; 84100; 84550; 85025; 85610; 85652; 86140; 87040; 96365; 96367; 96375; 96413; 96417; J0360; J0640; J1100; J1825; J2469; J2543; J3370; J3490; J7050; J7070; J9035; J9190; Q0162

== ENCOUNTER 2019-04-19 09:51 | Outpatient (CLI) | payer MEDICARE ==
--- NOTE | 2019-04-19 13:16 | PRG ---
DATE OF SERVICE: 04/19/2019 HISTORY: Mr. Shemar King is a very pleasant 68-year-old gentleman, who presents to the Wound Center for evaluation of an ulceration of the right lateral foot. The patient was last seen in the Wound Center on 10/08/[address] Hoyt for multiple right foot ulcerations. The patient states that the ulceration over the right lateral foot now present was first noted approximately 1 month ago. He states that the ulceration developed from ill-fitting shoes. The patient states he was admitted to [facility] on 04/12/2019 for sepsis. He states that during his hospital stay, the wound was dressed with Fibracol. He states that prior to his admission to [facility], his wound had been dressed with Neosporin followed by a secondary dressing with adhesive. He states that his dressing changes were performed by his , who now is unable to assist with dressing changes because of her own health status. PAST MEDICAL HISTORY: 1. Hypertension. 2. Diabetes mellitus. 3. Chronic kidney disease. 4. Colon carcinoma, recurrent. 5. Atrial fibrillation, status post ablation. 6. Obstructive sleep apnea. 7. Anemia. 8. Arthritis. PAST SURGICAL HISTORY: 1. Right 4th digit amputation through metatarsophalangeal joint. 2. Colon resection/liver resection/cholecystectomy. 3. Hernia repair with mesh. 4. MediPort placement. 5. Tonsillectomy. MEDICATIONS: 1. Augmentin. 2. Florastor. 3. Levemir. 4. Glipizide. 5. Lipitor. 6. Benadryl. 7. Gabapentin. 8. Coumadin. 9. Zofran. 10. Lomotil. 11. Compazine. 12. Metoprolol. 13. Imodium. PHYSICAL EXAMINATION: VITAL SIGNS: Temperature 97.8, pulse 74, respirations 19, and blood pressure 145/65. Accu-Chek 74. EXTREMITIES: An ulceration over the right lateral forefoot is present, which measures approximately 2.0 x 1.3 cm. Granulation tissue was visible within the wound margins. No purulent drainage is associated with the wound. No erythema of the skin surrounding the wound is present. No maceration of the skin of the periwound is noted. A dorsalis pedis pulse is palpable on the right. No significant edema of the right foot is present on exam today. ASSESSMENT AND PLAN: 1. 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 Dressing changes of Hydrofera Blue, followed by Wayne will be initiated today. These dressing changes are to be performed 3 times per week after cleansing and irrigation. The patient will be performing his own dressing changes. Arrangements will be made for the home delivery of dressing supplies. I will see Mr. King again in 1 week. At this time, the patient will also be seen by the patch sander for fitting with diabetic shoes with inserts. The patient understands and is in agreement with the preceding treatment plan. 2. Diabetes mellitus. The patient's Accu-Chek in clinic today 74. The patient has been told that for optimal wound healing, his blood glucoses should remain below 150. 3. Hypertension. 4. Chronic kidney disease. 5. Colon carcinoma, recurrent. The patient states that he is receiving chemotherapy every other Tuesday under the direction of Dr. Huff. 6. Atrial fibrillation, status post ablation. 7. Obstructive sleep apnea. 8. Anemia. 9. Arthritis. Job ID: [id number]
[2019-04-19] MEDS ORDERED: Sodium Chloride 0.9% 15 ML NEB ONE (15:00)
== END 2019-04-19 09:52 | disposition home or self-care (01) ==
LOC: WCC 09:51
PROVIDERS: ATTEND Family Medicine
DX: E11.621 Type 2 diabetes mellitus with foot ulcer (principal); E11.40 Type 2 diabetes mellitus with diabetic neuropathy, unspecified; L97.519 Non-pressure chronic ulcer of other part of right foot with unspecified severity; I12.9 Hypertensive chronic kidney disease with stage 1 through stage 4 chronic kidney disease, or unspecified chronic kidney disease; N18.9 Chronic kidney disease, unspecified; C18.9 Malignant neoplasm of colon, unspecified; I48.91 Unspecified atrial fibrillation; G47.33 Obstructive sleep apnea (adult) (pediatric); D63.1 Anemia in chronic kidney disease; M19.91 Primary osteoarthritis, unspecified site
CPT/HCPCS: 97139; 97602; G0463; 99203; A4218

== ENCOUNTER 2019-04-25 11:00 | Day surgery (SDC) | payer MEDICARE | END 2019-04-25 11:45 | disposition home or self-care (01) | LOC: ONC/OP 11:00 | PROVIDERS: ATTEND Internal Medicine Hematology & Oncology | DX: Z51.11 Encounter for antineoplastic chemotherapy (principal); C78.7 Secondary malignant neoplasm of liver and intrahepatic bile duct; C78.01 Secondary malignant neoplasm of right lung; C18.6 Malignant neoplasm of descending colon | CPT/HCPCS: 99212; G0463; J0640; J1100; J2469; J3490; J9035; J9190 ==

== ENCOUNTER 2019-04-25 11:24 | Outpatient (CLI) | payer MEDICARE ==
[~2019-04-25 11:24] MED LIST changes: -Bevacizumab 400 MG, Bevacizumab 100 MG in Sodium Chloride 0.9% 80 ML IVPB SCH; -DEXTROSE 5% IVPB SCH; -FLUOROURACIL IVPB SCH; -Leucovorin Calcium 50 MG in Dextrose 5% in Water 50 ML IVPB SCH; -Palonosetron HCl 0.25 MG in Dextrose 5% in Water 50 ML IVPB SCH; +Sodium Chloride 0.9% 15 ML NEB ONE; -WATER IVPB SCH
--- NOTE | 2019-04-25 11:27 | PRG ---
DATE OF SERVICE: 04/25/2019 HISTORY: Mr. Shemar King is a very pleasant 68-year-old gentleman, who presents to the Wound Center for evaluation of an ulceration of the right lateral foot. The patient was previously seen in the Wound Center on 10/08/[address] Hoyt for multiple right foot ulcerations. The patient stated that the ulceration over the right lateral foot now present was first noted approximately one month ago. The patient stated that the ulceration developed from ill-fitting shoes. The patient stated he was admitted to [facility] on 04/12/2019 for sepsis. He stated that during his hospital stay, the wound was dressed with Fibracol. He stated that prior to his admission to [facility], his wound had been dressed with Neosporin followed by a secondary dressing with adhesive. The patient states he was discharged to home from his last hospital admission on Augmentin. He states that because of a delay in filling the prescription, he has only taken Augmentin for approximately 2 days. The patient states that he is to receive chemotherapy later this afternoon. He states that he has a followup appointment with Dr. Huff, also this afternoon. PHYSICAL EXAMINATION: VITAL SIGNS: Temperature 98.1, pulse 75, respirations are 19, and blood pressure 148/66. Accu-Chek 124. EXTREMITIES: An ulceration over the right lateral forefoot is present, which measures approximately 1.7 x 1.2 cm. The dimensions of the wound at the time of the patient's last visit were approximately 2.0 x 1.3 cm. No granulation tissue is visible within the wound margins. No grossly purulent drainage is associated with the wound. A sample of tissue within the wound margins was excised with the use of scissors and sent for aerobic and anaerobic cultures. Erythema of the dorsum of the right lateral foot is present. No maceration of the skin of the periwound is noted. No significant edema of the right foot is present on exam today. ASSESSMENT AND PLAN: 1. 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 King that he present to the emergency department for evaluation for admission for further treatment of his ulceration, which may include imaging in conjunction with IV antibiotics. I have explained to the patient that he has significant erythema of the dorsum of the right lateral foot despite taking p.o. Augmentin for the past 2 days. The patient states he will report for his chemotherapy appointment and will also keep his appointment with Dr. Huff. He states he will discuss the preceding treatment recommendations with Dr. Huff. Arrangements were previously made for the home delivery of dressing supplies. The patient has been seen by the upholstery handler today. 2. Diabetes mellitus. The patient's Accu-Chek in clinic today is 124. The patient was previously told that for optimal wound healing, his blood glucoses should remain below 150. 3. Hypertension. 4. Chronic kidney disease. 5. Colon carcinoma, recurrent. The patient is receiving chemotherapy every other Tuesday under the direction of Dr. Huff. 6. Atrial fibrillation, status post ablation. 7. Obstructive sleep apnea. 8. Anemia. 9. Arthritis. Job ID: [id number]
== END 2019-04-25 11:25 | disposition home or self-care (01) ==
LOC: WCC 11:24
PROVIDERS: ATTEND Family Medicine
DX: E11.621 Type 2 diabetes mellitus with foot ulcer (principal); L97.519 Non-pressure chronic ulcer of other part of right foot with unspecified severity; E11.40 Type 2 diabetes mellitus with diabetic neuropathy, unspecified; E11.22 Type 2 diabetes mellitus with diabetic chronic kidney disease; I12.9 Hypertensive chronic kidney disease with stage 1 through stage 4 chronic kidney disease, or unspecified chronic kidney disease; N18.9 Chronic kidney disease, unspecified; D63.1 Anemia in chronic kidney disease; C18.9 Malignant neoplasm of colon, unspecified; I48.91 Unspecified atrial fibrillation; G47.33 Obstructive sleep apnea (adult) (pediatric); M19.90 Unspecified osteoarthritis, unspecified site
CPT/HCPCS: 87070; 87205

== ENCOUNTER 2019-04-25 11:47 | Inpatient (IN) | payer MEDICARE ==
--- NOTE | 2019-04-25 13:25 | RAD ---
Radiograph right foot 3 views: DATE: 04/25/2019 HISTORY: Right foot wound in 68-year-old male COMPARISON: 04/12/2019 FINDINGS: Amputation at base of fourth proximal phalanx. Erosions at fourth MTP joint. No acute fracture or kari tructive osseous lesion. Atherosclerotic calcification. No periostitis or permeative lesion. No interval change. IMPRESSION: 1. Status post amputation at base of fourth proximal phalanx. 2. Atherosclerotic disease. 3. No interval change and no bone destruction.
[2019-04-25 13:52] LABS: #Basophils 0.1 thou/uL (0.0-0.2); #Eosinphils 0.3 thou/uL (0.0-0.7); #Lymphocytes 1.2 thou/uL (1.20-3.40); #Monocytes 1.2 thou/uL (0.11-0.59); #Neutrophils 7.3 thou/uL (1.40-6.50); %Eosinophils 3.2 % (0.0-10.0); %Monocytes 12.1 % (0.0-10.0); %Neutrophils 71.7 % (42.0-75.0); Hemoglobin 10.8 g/dL (14.0-18.0); Mean Corpuscular HGB CONC 34.1 g/dL (32.0-36.0); Mean Corpuscular Hemoglobin 33.4 pg (27.0-31.0); Mean Corpuscular Volume 98.1 fL (78.0-98.0); Mean Platelet Volume 6.9 fL (7.4-10.4); Platelet Count 255 thou/uL (130-400); RBC Distribution Width 13.5 % (11.5-14.5); Red Blood Cell (RBC) Count 3.22 mill/uL (4.70-6.10); White Blood Cell (WBC) Count 10.1 thou/uL (4.8-10.8)
[2019-04-25 14:23] LABS: ALT (SGPT) 9 U/L (8-55); AST (SGOT) 14 U/L (5-34); Alkaline Phosphatase 66 U/L (40-150); Anion Gap 17 mmol/L (10-20); BUN (Urea Nitrogen) 34 mg/dL (8.4-25.7); Bilirubin, Total 0.3 mg/dL (0.2-1.2); Calc. Creatinine Clearance 0 mL/min (70-130); Calcium 8.9 mg/dL (7.8-10.44); Carbon Dioxide 21 mmol/L (23-31); Chloride 100 mmol/L (98-107); Estimated GFR-MDRD 19; Globulin 3.2 g/dL (2.4-3.5); Glucose 160 mg/dL (80-115); Potassium 4.4 mmol/L (3.5-5.1); Protein, Total 7.2 g/dL (5.8-8.1); Sodium 133 mmol/L (136-145)
[2019-04-25] MEDS ORDERED: Piperacillin/Tazobactam 4.5 GM in Sodium Chloride 0.9% 100 ML IVPB SCH ×2 (16:30→22:00)
[2019-04-25 17:50] LABS: Lactic Acid 1.6 mmol/L (0.5-2.2)
[2019-04-25] MEDS ORDERED: Sodium Chloride 0.9% 1,000 ML IV SCH (18:02)
[2019-04-25] MEDS ORDERED: Ondansetron PF 4 MG/2 ML Vial IVP PRN (18:02)
[2019-04-25] MEDS ORDERED: Ondansetron ODT 4 MG TAB SL PRN (18:02)
[2019-04-25 18:07] VITALS: BMI 31.1
[2019-04-25] MEDS ORDERED: Loperamide HCl 2 MG CAP PO PRN (19:47)
[2019-04-25] MEDS ORDERED: Acetaminophen 650 MG Suppository PR PRN (19:47)
[2019-04-25] MEDS ORDERED: Prochlorperazine Maleate 5 MG TAB PO PRN (19:47)
[2019-04-25] MEDS ORDERED: Ondansetron ODT 4 MG TAB PO PRN ×2 (19:47)
[2019-04-25] MEDS ORDERED: Senokot S 8.6-50 MG TAB PO PRN (19:47)
[2019-04-25] MEDS ORDERED: Diphenoxylate HCl/Atropine Tablet PO PRN (19:47)
[2019-04-25] MEDS ORDERED: diphenhydrAMINE 25 MG CAP PO PRN (19:47)
[2019-04-25] MEDS ORDERED: Acetaminophen 325 MG TAB PO PRN (19:47)
[2019-04-25] MEDS ORDERED: HYDROcodone/Acetaminophen 5/325 mg Tablet PO PRN ×2 (19:47)
[2019-04-25] MEDS ORDERED: Guaifenesin DM 100-10/5 ML UDCUP PO PRN (19:47)
[2019-04-25] MEDS ORDERED: Vancomycin HCl 1 GM in Premix Bag 1 BAG IVPB SCH (19:47)
[2019-04-25] MEDS ORDERED: Dextrose 5% in Water 1,000 ML IV PRN (19:48)
[2019-04-25] MEDS ORDERED: Dextrose 50% Abboject 50 ML SYRINGE SLOW IVP PRN (19:48)
[2019-04-25] MEDS ORDERED: HumaLOG 300 UNITS/3 ML VIAL SC PRN (19:48)
[2019-04-25] MEDS: Sodium Chloride 0.9% 1,000 ML IV SCH (20:00)
[2019-04-25] MEDS ORDERED: Non-Formulary Item 1 EACH (Insulin Detemir [Levemir] 30 UNIT) SQ SCH (21:00)
[2019-04-25] MEDS ORDERED: Gabapentin 300 MG CAP PO SCH (21:00)
--- NOTE | 2019-04-25 21:17 | HP ---
PRIMARY CARE PHYSICIAN: [facility]. CHIEF COMPLAINT: Redness in right foot. HISTORY OF PRESENT ILLNESS: This is a 68-year-old white male with a known history of diabetes, peripheral neuropathy, and infected ulcer on his right lateral foot. The patient was recently seen in the hospital for UTI and then the infected ulcer was discharged 9-10 days ago with a 7-day course of Augmentin as well as wound care. He went to Wound Care Clinic today, was noted to have redness that was new, spreading from the ulcer up the side of his foot. He has not had any fevers or chills. The patient does have colon cancer and is on chemotherapy for this. His last dose was about a week ago and he has had a lot of diarrhea from that, down to about 4 bowel movements per day now, but says he feels dehydrated. He says he has been drinking a lot of fluids and has been urinating well. No fevers or chills. No other symptoms. In the emergency room, he was found to have cellulitis on his foot. This is presumed to the antibiotic failure, though again he actually was not prescribed more than 7 days of antibiotics on his discharge. He was given vancomycin and Zosyn. He was also noted to have an acute elevation of his creatinine up to 3.2 from his baseline of 1.4 to 1.8. PAST MEDICAL HISTORY: 1. Diabetes mellitus type 2, insulin dependent. 2. Metastatic colon cancer, on chemotherapy. 3. Hypertension. 4. Restless legs syndrome. 5. Peripheral neuropathy. 6. Sleep apnea. 7. Obesity. 8. Chronic kidney disease, stage 3. 9. Previous osteomyelitis of the right 4th toe, status post amputation. 10. Chronic atrial fibrillation, on chronic Coumadin. 11. Chronic urinary retention, doing self cath at home. PAST SURGICAL HISTORY: 1. Colectomy. 2. MediPort placement. 3. Cholecystectomy. 4. Tonsillectomy. 5. Liver resection. 6. Right 4th toe amputation. 7. Hernia repair. 8. Atrial fibrillation ablation x2. PAST PSYCHIATRIC HISTORY: Anxiety and depression. SOCIAL HISTORY: The patient is , lives at home with his . No history of tobacco, alcohol, or illicit drug use. FAMILY HISTORY: Significant for hypertension and diabetes in multiple family members. ALLERGIES: NO KNOWN DRUG ALLERGIES. CURRENT MEDICATIONS: 1. Augmentin 875 mg one tablet 2 times a day. 2. Atorvastatin 20 mg at night. 3. Benadryl 25 mg as needed. 4. Lomotil 1 tablet every 6 hours as needed for diarrhea. 5. Gabapentin 300 mg 3 times a day. 6. Gabapentin 600 mg at night. 7. Glipizide 10 mg twice a day. 8. Insulin Levemir 30 units at night and 40 units in the morning. 9. Imodium 2 mg p.o. p.r.n. diarrhea. 10. Metoprolol tartrate 12.5 mg twice a day. 11. Zofran 4 mg every 8 hours as needed for nausea, vomiting. 12. Compazine 10 mg every 6 hours as needed for nausea, vomiting. 13. Florastor 250 mg daily. 14. Coumadin 5 mg Tuesday, Tuesday, Tuesday, , and Tuesday and 7.5 mg on Mondays and Fridays. REVIEW OF SYSTEMS: CONSTITUTIONAL: No fevers. No chills. EYES: No double vision or blurred vision. ENT: No congestion, drainage, or sore throat. CARDIOVASCULAR: No chest pain. No palpitations or racing heart. PULMONARY: No coughing, wheezing, or shortness of breath. GASTROINTESTINAL: The patient has some nausea. No vomiting from the chemotherapy. No abdominal pain or cramping. He does have the diarrhea, was pretty significant soon after the chemotherapy, but is calmed down about 4 times per day now. No blood or mucus. GENITOURINARY: No dysuria or hematuria. He has a good urine output. MUSCULOSKELETAL: No muscle aches or joint pain. SKIN: See HPI. NEUROLOGIC: The patient has chronic numbness and tingling in his bilateral lower extremities, but no other new neurologic signs. PHYSICAL EXAMINATION: VITAL SIGNS: Blood pressure 172/93, pulse 74, respirations 16, temperature 97.7, O2 saturation 98% on room air. GENERAL: This is a well-developed, obese white male, in no acute distress. HEENT: Pupils are equal, round, and reactive to light. Oropharynx clear without lesions, erythema, or exudate. NECK: Supple. No lymphadenopathy. No thyroid nodules or enlargement. HEART: Regular rate and rhythm. No murmurs, rubs, or gallops. LUNGS: Clear to auscultation bilaterally. No wheezes, crackles, or rhonchi. ABDOMEN: Soft, nontender to palpation. Normoactive bowel sounds. No hepatosplenomegaly or other masses. EXTREMITIES: No clubbing, cyanosis, or edema. SKIN: The patient has a large ulcer on the lateral aspect of the right 5th MTP joint. This has a dressing in place over it and he has cellulitis spreading medially about prison across the foot and then spreading proximally to the ankle. This has been marked by the nursing at its farthest extent. It is minimally warm. It is blanching to palpation. NEUROLOGIC: Intact strength and sensation in all extremities except for decreased sensation in the bilateral lower extremities. No facial droop. PSYCHIATRIC: Alert, oriented x3. Normal mood and affect. LABORATORY DATA: CBC with a normal white blood cell count, hemoglobin 10.8, which is chronic for him. Hematocrit 31.6, platelet count normal. Complete metabolic panel notable for sodium of 133, carbon dioxide of 21, BUN of 34, creatinine of 3.2, glucose of 160. The rest was normal. Lactic acid was negative x2. C-reactive protein was elevated at 3.27. IMAGING STUDIES: I did review the foot x-ray done in the emergency room along with the radiologist's report. There is no evidence of bony abnormalities or osteomyelitis on the x-rays. ASSESSMENT: 1. Diabetic foot ulcer, now with cellulitis, uncertain if this is actually in spite of antibiotic therapy or not. The patient was given vancomycin and Zosyn in the emergency room. We will continue these in renally dosed amounts and we will have Pharmacy dose of vancomycin. We will watch closely for resolution of the cellulitis. If there is any progression of the disease, we will have Dr. Box consult as well. 2. Diabetes mellitus type 2, insulin dependent. Resume the patient's insulin and check q.a.c. and at bedtime fingerstick blood sugars along with moderate insulin sliding scale. 3. Metastatic colon cancer, on chemotherapy. The patient does not have neutropenia at this time. He was having some diarrhea, which is possibly related to his dehydration. We will give p.r.n. Lomotil and we will monitor for any progression of the symptoms. The patient will need to follow up with Hem-Oncology after this infection is under control and he is discharged to see if he can restart chemotherapy at that time. 4. Acute on chronic renal failure, likely due to volume depletion. We will give IV fluids and we will monitor for improvement. If renal function does not improve or if it worsens, we will need to get Nephrology involved. 5. Hypertension. Resume the patient's antihypertensives. 6. Atrial fibrillation. We will resume the patient's warfarin. Check PT/INR daily and adjust warfarin dose as needed. 7. Gastrointestinal prophylaxis. Put the patient on Pepcid twice a day. 8. Deep venous thrombosis prophylaxis. The patient is already on warfarin. 9. Code status. I did discuss this with the patient. He is a full code. Should he be incapacitated, he states that his medical decision maker would be his , her name is Randa King. Job ID: [id number]
[2019-04-25] MEDS ORDERED: Vancomycin HCl 750 MG in Sodium Chloride 0.9% 250 ML 250 ML IVPB SCH (22:00)
[2019-04-25] MEDS: Gabapentin 300 MG CAP PO SCH (22:19)
[2019-04-25] MEDS: Metoprolol Tartrate 25 MG TAB PO SCH (22:19)
[2019-04-25] MEDS: Atorvastatin Calcium 20 MG TAB PO SCH (22:20)
[2019-04-25] MEDS: Famotidine 20 MG TAB PO SCH (22:20)
[2019-04-25] MEDS: Insulin Glargine 30 UNITS in Pre-Filled Syringe 1 EACH SC SCH (22:20)
[2019-04-26] MEDS: Piperacillin/Tazobactam 2.25 GM in Sodium Chloride 0.9% 100 ML IVPB SCH ×3 (02:10→16:27)
[2019-04-26 06:42] LABS: #Basophils 0.1 thou/uL (0.0-0.2); #Eosinphils 0.3 thou/uL (0.0-0.7); #Lymphocytes 0.9 thou/uL (1.20-3.40); #Neutrophils 6.2 thou/uL (1.40-6.50); %Eosinophils 3.3 % (0.0-10.0); %Lymphocytes 10.9 % (21.0-51.0); %Monocytes 12.1 % (0.0-10.0); %Neutrophils 72.7 % (42.0-75.0); Hemoglobin 10.8 g/dL (14.0-18.0); Mean Corpuscular HGB CONC 33.3 g/dL (32.0-36.0); Mean Corpuscular Hemoglobin 32.6 pg (27.0-31.0); Mean Corpuscular Volume 97.9 fL (78.0-98.0); Mean Platelet Volume 6.8 fL (7.4-10.4); Platelet Count 243 thou/uL (130-400); RBC Distribution Width 13.3 % (11.5-14.5); Red Blood Cell (RBC) Count 3.32 mill/uL (4.70-6.10); White Blood Cell (WBC) Count 8.5 thou/uL (4.8-10.8)
[2019-04-26 06:45] LABS: INR-International Normal Ratio 2.3; Prothrombin Time 25.5 SEC (12.0-14.7)
[2019-04-26 07:03] LABS: Anion Gap 14 mmol/L (10-20); BUN (Urea Nitrogen) 28 mg/dL (8.4-25.7); Calc. Creatinine Clearance 37 mL/min (70-130); Calcium 8.9 mg/dL (7.8-10.44); Carbon Dioxide 23 mmol/L (23-31); Chloride 103 mmol/L (98-107); Estimated GFR-MDRD 24; Glucose 66 mg/dL (80-115); Potassium 4.2 mmol/L (3.5-5.1); Sodium 136 mmol/L (136-145)
[2019-04-26] MEDS: glipiZIDE 10 MG TAB PO SCH ×2 (07:56→16:27)
[2019-04-26] MEDS: Gabapentin 300 MG CAP PO SCH ×5 (07:57→21:26)
[2019-04-26] MEDS: Saccharomyces boulardii 250 MG CAP PO SCH (07:57)
[2019-04-26] MEDS: Metoprolol Tartrate 25 MG TAB PO SCH ×2 (07:59→21:27)
[2019-04-26] MEDS: Sodium Chloride 0.9% 1,000 ML IV SCH ×2 (08:00→16:27)
[2019-04-26] MEDS: Insulin Glargine 40 UNITS in Pre-Filled Syringe 1 EACH SC SCH (08:02)
[2019-04-26] MEDS ORDERED: Non-Formulary Item 1 EACH (Levemir Flexpen [Levemir Flexpen] 40 UNIT) SC SCH (09:00)
--- NOTE | 2019-04-26 12:41 | PDOC.PN ---
- Subjective Encounter Start Date: 04/26/19 Encounter Start Time: 12:50 Subjective: Patient reports some improvement in redness on foot. No N/V. -: No fever. No SOB/chest pain. - Objective Resuscitation Status - Order Detail: 04/25/19 19:39 Resuscitation Status Routine Resuscitation Status: FULL: Full Resuscitation Discussed with: Randall GAVIRIA Reviewed: Yes Vital Signs & Weight: Vital Signs (12 hours) Temp Pulse Resp BP Pulse Ox 04/26/19 07:16 98.3 F 71 20 134/74 95 04/26/19 04:00 98.1 F 75 18 170/90 H 97 Weight Weight 223 lb 6.4 oz Result Diagrams: 04/26/19 05:50 04/26/19 05:50 Additional Labs: Accuchecks 04/26/19 04/26/19 04/25/19 11:48 05:29 20:43 POC Glucose 155 H 58 L* 137 H Phys Exam - Physical Examination Constitutional: NAD HEENT: moist MMs Respiratory: no wheezing, no rales, no rhonchi, clear to auscultation bilateral Cardiovascular: RRR, no significant murmur Gastrointestinal: soft, non-tender, positive bowel sounds redness on right foot retreating from the drawn line Psychiatric: normal affect, A&O x 3 Dx/Plan (1) Diabetic foot ulcer Code(s): E11.621 - TYPE 2 DIABETES MELLITUS WITH FOOT ULCER; L97.509 - NON- PRESSURE CHRONIC ULCER OTH PRT UNSP FOOT W UNSP SEVERITY Status: Acute Qualifiers: Diabetic foot ulcer location: midfoot Laterality: right (2) Cellulitis of foot Code(s): L03.119 - CELLULITIS OF UNSPECIFIED PART OF LIMB Status: Acute Comment: on Zosyn and Vancomycin, renally adjusted (3) Diabetes mellitus type 2, insulin dependent Code(s): E11.9 - TYPE 2 DIABETES MELLITUS WITHOUT COMPLICATIONS; Z79.4 - INTERMEDIATE (CURRENT) USE OF INSULIN Status: Chronic Comment: some low blood sugars , likely due to renal failure, if persistent with hydration may need to decrease home insulin (4) H/O malignant neoplasm of colon Code(s): Z85.038 - PERSONAL HISTORY OF MALIGNANT NEOPLASM OF LARGE INTESTINE Status: Chronic Comment: metastatic, on chemotherapy (5) Acute renal failure superimposed on stage 3 chronic kidney disease Code(s): N17.9 - ACUTE KIDNEY FAILURE, UNSPECIFIED; N18.3 - CHRONIC KIDNEY DISEASE, STAGE 3 (MODERATE) Status: Acute Comment: improving with fluids (6) Atrial fibrillation Code(s): I48.91 - UNSPECIFIED ATRIAL FIBRILLATION Status: Chronic Qualifiers: (7) Chronic anticoagulation Code(s): Z79.01 - INPATIENT NURSING AIDE (CURRENT) USE OF ANTICOAGULANTS Status: Chronic Comment: on coumadin, therapeutic (8) Hypertension Code(s): I10 - ESSENTIAL (PRIMARY) HYPERTENSION Status: Chronic Qualifiers: - Plan cont current plan of care, continue antibiotics, PT/OT continue IV fluids, IV antibiotics * . - Discharge Day Encounter end time: 13:00
[2019-04-26] MEDS: Warfarin Sodium 5 MG TAB PO SCH (16:28)
[2019-04-26] MEDS: Insulin Glargine 30 UNITS in Pre-Filled Syringe 1 EACH SC SCH (21:27)
[2019-04-26] MEDS: Famotidine 20 MG TAB PO SCH (21:27)
[2019-04-26] MEDS: Atorvastatin Calcium 20 MG TAB PO SCH (21:27)
[2019-04-26] MEDS: Vancomycin HCl 1 GM in Premix Bag 1 BAG IVPB SCH (22:06)
[2019-04-27] MEDS: Piperacillin/Tazobactam 2.25 GM in Sodium Chloride 0.9% 100 ML IVPB SCH ×3 (01:35→16:21)
[2019-04-27] MEDS: Sodium Chloride 0.9% 1,000 ML IV SCH ×4 (03:30→20:26)
[2019-04-27 05:28] LABS: INR-International Normal Ratio 2.5; Prothrombin Time 26.4 SEC (12.0-14.7)
[2019-04-27] MEDS: Gabapentin 300 MG CAP PO SCH ×3 (08:44→20:16)
[2019-04-27] MEDS: glipiZIDE 10 MG TAB PO SCH ×2 (08:44→16:20)
[2019-04-27] MEDS: Saccharomyces boulardii 250 MG CAP PO SCH (08:44)
[2019-04-27] MEDS: Metoprolol Tartrate 25 MG TAB PO SCH ×2 (08:44→20:15)
[2019-04-27] MEDS: Insulin Glargine 40 UNITS in Pre-Filled Syringe 1 EACH SC SCH (08:46)
--- NOTE | 2019-04-27 15:31 | PDOC.PN ---
- Subjective Encounter Start Date: 04/27/19 Encounter Start Time: 15:29 Subjective: no new complaints.feels better. some chills but no fever - Objective Resuscitation Status - Order Detail: 04/25/19 19:39 Resuscitation Status Routine Resuscitation Status: FULL: Full Resuscitation Discussed with: Patient EVERETTE Reviewed: Yes Vital Signs & Weight: Vital Signs (12 hours) Temp Pulse Resp BP Pulse Ox 04/27/19 07:40 98.8 F 69 18 167/80 H 95 Weight Admit Weight 223 lb 6.4 oz Weight 223 lb 6.4 oz Result Diagrams: 04/26/19 05:50 04/26/19 05:50 Additional Labs: Accuchecks 04/27/19 04/27/19 04/26/19 11:31 04:19 19:27 POC Glucose 112 H 124 H 286 H 04/26/19 17:58 POC Glucose 145 H Microbiology 04/25/19 13:41 Venous blood - Left Hand Blood Culture - Preliminary Specimen has been received and culture in progress. No Growth to date. 04/25/19 13:36 Venous blood - Right Arm Blood Culture - Preliminary Specimen has been received and culture in progress. No Growth to date. Laboratory Tests 04/14/19 04/25/19 04/25/19 07:21 09:46 13:36 INR Creatinine 1.42 H 3.41 H 3.20 H 04/26/19 04/26/19 04/27/19 05:50 05:50 04:58 INR 2.3 2.5 Creatinine 2.67 H Phys Exam - Physical Examination Constitutional: NAD HEENT: PERRLA, moist MMs, sclera anicteric, oral pharynx no lesions Neck: no nodes, no JVD, supple, full ROM Respiratory: no wheezing, no rales, no rhonchi, clear to auscultation bilateral Cardiovascular: RRR, no significant murmur, no rub Gastrointestinal: soft, non-tender, no distention, positive bowel sounds Musculoskeletal: no edema, pulses present R great toe w gangrenous nail,no erythema foot or leg ,bandaged toe Neurological: non-focal, normal sensation, moves all 4 limbs Psychiatric: normal affect, A&O x 3 Skin: no rash Dx/Plan (1) Acute renal failure superimposed on stage 3 chronic kidney disease Code(s): N17.9 - ACUTE KIDNEY FAILURE, UNSPECIFIED; N18.3 - CHRONIC KIDNEY DISEASE, STAGE 3 (MODERATE) Status: Acute Comment: improving with fluids.monitor. avoid nephrotoxins (2) Diabetic foot ulcer Code(s): E11.621 - TYPE 2 DIABETES MELLITUS WITH FOOT ULCER; L97.509 - NON- PRESSURE CHRONIC ULCER OTH PRT UNSP FOOT W UNSP SEVERITY Status: Acute Qualifiers: Diabetic foot ulcer location: midfoot Laterality: right Comment: Xray negative for osteomyelitis but re admitted for same w failure of Augmentin (3) Anemia of chronic disease Code(s): D63.8 - ANEMIA IN OTHER CHRONIC DISEASES CLASSIFIED ELSEWHERE Status : Chronic (4) Anxiety and depression Code(s): F41.9 - ANXIETY DISORDER, UNSPECIFIED; F32.9 - MAJOR DEPRESSIVE DISORDER, SINGLE EPISODE, UNSPECIFIED Status: Chronic (5) Atrial fibrillation Code(s): I48.91 - UNSPECIFIED ATRIAL FIBRILLATION Status: Chronic Qualifiers: (6) CKD (chronic kidney disease) stage 3, GFR 30-59 ml/min Code(s): N18.3 - CHRONIC KIDNEY DISEASE, STAGE 3 (MODERATE) Status: Chronic (7) Chronic anticoagulation Code(s): Z79.01 - VITICULTURIST (CURRENT) USE OF ANTICOAGULANTS Status: Chronic Comment: on coumadin, therapeutic (8) Diabetes type 2, uncontrolled Code(s): E11.65 - TYPE 2 DIABETES MELLITUS WITH HYPERGLYCEMIA Status: Chronic Comment: (9) H/O malignant neoplasm of colon Code(s): Z85.038 - PERSONAL HISTORY OF MALIGNANT NEOPLASM OF LARGE INTESTINE Status: Chronic Comment: metastatic, on chemotherapy (10) Hypertension Code(s): I10 - ESSENTIAL (PRIMARY) HYPERTENSION Status: Chronic Qualifiers: (11) ESE (obstructive sleep apnea) Code(s): G47.33 - OBSTRUCTIVE SLEEP APNEA (ADULT) (PEDIATRIC) Status: Chronic (12) Obesity (BMI 30-39.9) Code(s): E66.9 - OBESITY, UNSPECIFIED Status: Chronic - Plan continue antibiotics, PT/OT, respiratory therapy, incentive spirometry, out of bed/ambulate, DVT proph w/SCDs will consult podiatry.pt reports seeing 2 years ago -: Oste can not be ruled out as secind episode this month & pt immunocompromis -: HD stable -: am labs. Cr better.cont IVF. -: cont vanco +zosyn. * . Review of Systems - Review of Systems Constitutional: negative: fever, chills, sweats, weakness, malaise, other ENT: negative: Ear Pain, Ear Discharge, Nose Pain, Nose Discharge, Nose Congestion, Mouth Pain, Mouth Swelling, Throat Pain, Throat Swelling, Other Respiratory: negative: Cough, Dry, Shortness of Breath, Hemoptysis, SOB with Excertion, Pleuritic Pain, Sputum, Wheezing Cardiovascular: negative: chest pain, palpitations, orthopnea, paroxysmal nocturnal dyspnea, edema, light headedness, other Gastrointestinal: negative: Nausea, Vomiting, Abdominal Pain, Diarrhea, Constipation, Melena, Hematochezia, Other Genitourinary: negative: Dysuria, Frequency, Incontinence, Hematuria, Retention , Other Musculoskeletal: Foot Pain Skin: negative: Rash, Lesions, Mir, Bruising, Other Neurological: negative: Weakness, Numbness, Incoordination, Change in Speech, Confusion, Seizures, Other - Medications/Allergies Allergies/Adverse Reactions: Allergies Allergy/AdvReac Type Severity Reaction Status Date / Time No Known Allergies Allergy Verified 04/13/19 03:57 Medications: Current Medications Acetaminophen (Tylenol) 650 mg PO Q4H PRN PRN Reason: Headache/Fever/Mild Pain (1-3) Acetaminophen (Tylenol) 650 mg [place] Q4H PRN PRN Reason: Headache/Fever/Mild Pain (1-3) Hydrocodone Bitart/Acetaminophen ([place] 5/325) 1 tab PO Q4H PRN PRN Reason: Moderate Pain (4-6) Hydrocodone Bitart/Acetaminophen ([place] 5/325) 2 tab PO Q4H PRN PRN Reason: Severe Pain (7-10) Atorvastatin Calcium (Lipitor) 20 mg PO HS [facility] Last Admin: 04/26/19 21:27 Dose: 20 mg Dextrose/Water (Dextrose 50%) 25 gm SLOW IVP PRN PRN PRN Reason: Hypoglycemia Diphenhydramine HCl (Benadryl) 25 mg PO DAILYPRN PRN PRN Reason: Allergies Diphenoxylate HCl/Atropine (Lomotil) 1 tab PO Q6H PRN PRN Reason: Diarrhea/Loose Stools Last Admin: 04/27/19 01:35 Dose: 1 tab Famotidine (Pepcid) 20 mg PO QPM [facility] Last Admin: 04/26/19 21:27 Dose: 20 mg Gabapentin (Neurontin) 600 mg PO [facility] Last Admin: 04/26/19 21:26 Dose: 600 mg Gabapentin (Neurontin) 300 mg PO 0900,1500 [facility] Last Admin: 04/27/19 08:44 Dose: 300 mg Glipizide (Glucotrol) 10 mg PO BID-AC [facility] Last Admin: 04/27/19 08:44 Dose: 10 mg Glucagon (Glucagon) 1 mg IM PRN PRN PRN Reason: Hypoglycemia Guaifenesin/Dextromethorphan (Robitussin Dm) 15 ml PO Q4H PRN PRN Reason: Cough Sodium Chloride (Normal Saline 0.9%) 1,000 mls @ 100 mls/hr IV .Q10H [facility] Last Admin: 04/27/19 06:47 Dose: 1,000 mls Piperacillin Sod/Tazobactam (Sod 2.25 gm/ Sodium Chloride) 100 mls @ 200 mls/ hr IVPB 0200,1000,1800 [facility] Last Admin: 04/27/19 08:46 Dose: 100 mls Dextrose/Water (D5w) 1,000 mls @ 0 mls/hr IV .Q0M PRN PRN Reason: Hypoglycemia Insulin Glargine 30 units/ (Miscellaneous Medication) 0.3 mls @ 0 mls/hr SC [facility] Last Admin: 04/26/19 21:27 Dose: 0.3 mls Insulin Glargine 40 units/ (Miscellaneous Medication) 0.4 mls @ 0 mls/hr SC QAM [facility] Last Admin: 04/27/19 08:46 Dose: 0.4 mls Vancomycin HCl 1 gm/ Device 200 mls @ 200 mls/hr IVPB Q24HR [facility] Last Admin: 04/26/19 22:06 Dose: 200 mls Insulin Human Lispro (Humalog) 0 units SC .MODERATE SLIDING SC PRN PRN Reason: Moderate Correctional Scale Insulin Human Lispro (Humalog) 0 units SC .BEDTIME SLIDING SC PRN PRN Reason: Bedtime Correctional Scale Loperamide HCl (Imodium) 2 mg PO PRN PRN PRN Reason: Diarrhea/Loose Stools Metoprolol Tartrate (Lopressor) 12.5 mg PO BID [facility] Last Admin: 04/27/19 08:44 Dose: 12.5 mg Miscellaneous Medication (Pharmacy To Dose) 1 each PO PRN PRN PRN Reason: Pharmacy to dose Miscellaneous Medication (Pharmacy To Dose) 1 each IVPB PRN PRN PRN Reason: Pharmacy to dose Ondansetron HCl (Zofran Odt) 4 mg PO Q6H PRN PRN Reason: Nausea/Vomiting Ondansetron HCl (Zofran) 4 mg IVP Q6H PRN PRN Reason: Nausea/Vomiting Prochlorperazine Maleate (Compazine) 10 mg PO Q6HR PRN PRN Reason: Nausea Saccharomyces Boulardii (Florastor) 250 mg PO DAILY [facility] Last Admin: 04/27/19 08:44 Dose: 250 mg Senna/Docusate Sodium (Senokot S) 2 tab PO BID PRN PRN Reason: Constipation Sodium Chloride (Flush - Normal Saline) 10 ml IVF Q12HR [facility] Last Admin: 04/27/19 08:44 Dose: Not Given Sodium Chloride (Flush - Normal Saline) 10 ml IVF PRN PRN PRN Reason: Saline Flush Warfarin Sodium (Coumadin) 5 mg PO SuTuWeThSa@1700 [facility] Last Admin: 04/26/19 16:28 Dose: 5 mg Warfarin Sodium (Coumadin) 7.5 mg PO MoFr@1700 [facility]
[2019-04-27] MEDS ORDERED: Warfarin Sodium 7.5 MG TAB PO SCH (17:00)
[2019-04-27] MEDS: Atorvastatin Calcium 20 MG TAB PO SCH (20:15)
[2019-04-27] MEDS: Famotidine 20 MG TAB PO SCH (20:16)
[2019-04-27 20:50] LABS: Vancomycin, Trough 17.1 ug/mL
[2019-04-27] MEDS: Insulin Glargine 30 UNITS in Pre-Filled Syringe 1 EACH SC SCH (21:50)
[2019-04-27] MEDS: Vancomycin HCl 1 GM in Premix Bag 1 BAG IVPB SCH (21:51)
[2019-04-27] MEDS ORDERED: hydrALAZINE 20 MG/ML VIAL SLOW IVP PRN (23:52)
[2019-04-28] MEDS ORDERED: Flecainide 50 MG TAB PO SCH (00:45)
[2019-04-28] MEDS: Piperacillin/Tazobactam 2.25 GM in Sodium Chloride 0.9% 100 ML IVPB SCH ×3 (01:31→17:10)
[2019-04-28 06:34] LABS: INR-International Normal Ratio 2.3; Prothrombin Time 24.8 SEC (12.0-14.7)
[2019-04-28 06:51] LABS: Anion Gap 13 mmol/L (10-20); BUN (Urea Nitrogen) 22 mg/dL (8.4-25.7); Band 2 % (5-11); Calc. Creatinine Clearance 45 mL/min (70-130); Calcium 8.6 mg/dL (7.8-10.44); Carbon Dioxide 22 mmol/L (23-31); Chloride 105 mmol/L (98-107); Eosinophils 1 % (0-10); Estimated GFR-MDRD 30; Glucose 104 mg/dL (80-115); Hemoglobin 9.4 g/dL (14.0-18.0); Hypochromia SLIGHT = 6-15 cells (100X) (0-5/hpf); Lymphocytes 12 % (21-51); MDiff Complete? YES; Mean Corpuscular HGB CONC 33.6 g/dL (32.0-36.0); Mean Corpuscular Hemoglobin 32.7 pg (27.0-31.0); Mean Corpuscular Volume 97.5 fL (78.0-98.0); Metamyelocyte 1 % (0-0); Monocytes 6 % (0-10); Neutrophil 78 % (42-75); Platelet Count 231 thou/uL (130-400); Platelet Morphology Comment Appears Adequate; Potassium 3.7 mmol/L (3.5-5.1); RBC Distribution Width 13.3 % (11.5-14.5); Red Blood Cell (RBC) Count 2.86 mill/uL (4.70-6.10); Sodium 136 mmol/L (136-145); White Blood Cell (WBC) Count 7.9 thou/uL (4.8-10.8)
[2019-04-28] MEDS: glipiZIDE 10 MG TAB PO SCH ×2 (08:05→16:52)
[2019-04-28] MEDS: Gabapentin 300 MG CAP PO SCH ×3 (08:14→21:04)
[2019-04-28] MEDS: Saccharomyces boulardii 250 MG CAP PO SCH (08:15)
[2019-04-28] MEDS: Metoprolol Tartrate 25 MG TAB PO SCH ×2 (08:15→21:05)
[2019-04-28] MEDS: Flecainide 50 MG TAB PO SCH ×2 (08:15→21:05)
[2019-04-28] MEDS: Insulin Glargine 40 UNITS in Pre-Filled Syringe 1 EACH SC SCH (09:20)
--- NOTE | 2019-04-28 11:42 | MRI ---
MRI right foot WO Con HISTORY: Right foot wound in 68-year-old. Evaluation for osteomyelitis. COMPARISON: Plain film examination of 04/25/2019. FINDINGS: There are soft tissue changes adjacent to the metatarsophalangeal joint of the little toe. There are edema changes of the metatarsal head and the proximal phalanx of the little toe. There is been amputation at the level of the base of the fourth toe. The marrow signal change within the remainder of the foot is normal. No soft tissue abscess is visualized. IMPRESSION: 1. Marrow edema changes within the fifth metatarsal head and proximal phalanx of the little toe this is in the region of patient's ulcer and would be suspicious for osteomyelitis.
[2019-04-28] MEDS: HumaLOG 300 UNITS/3 ML VIAL SC PRN ×2 (13:11→16:56)
[2019-04-28] MEDS: Sodium Chloride 0.9% 1,000 ML IV SCH ×3 (13:16→21:14)
[2019-04-28] MEDS: Warfarin Sodium 5 MG TAB PO SCH (16:53)
--- NOTE | 2019-04-28 17:22 | PDOC.PN ---
- Subjective Encounter Start Date: 04/28/19 Encounter Start Time: 10:00 Subjective: pt up in bed no complains - Objective Resuscitation Status - Order Detail: 04/25/19 19:39 Resuscitation Status Routine Resuscitation Status: FULL: Full Resuscitation Discussed with: Patient Vital Signs & Weight: Vital Signs (12 hours) Temp Pulse Resp BP Pulse Ox 04/28/19 16:54 98.1 F 71 20 164/82 H 94 L 04/28/19 12:00 97.9 F 04/28/19 11:42 97.9 F 67 18 157/66 H 95 04/28/19 08:11 97.8 F 67 18 150/79 H 95 04/28/19 08:00 97.8 F Weight Admit Weight 223 lb 6.4 oz Weight 223 lb 6.4 oz I&O: 04/27/19 04/28/19 04/29/19 06:59 06:59 06:59 Intake Total 1933 720 Balance 1933 720 Result Diagrams: 04/28/19 05:38 04/28/19 05:38 Additional Labs: Accuchecks 04/28/19 04/28/19 04/28/19 16:31 11:42 04:39 POC Glucose 181 H 172 H 127 H 04/27/19 20:45 POC Glucose 128 H Phys Exam - Physical Examination Neck: no nodes, no JVD, supple, full ROM Respiratory: no wheezing, no rales, no rhonchi, clear to auscultation bilateral Cardiovascular: RRR, no significant murmur, no rub, gallop, irregular Gastrointestinal: soft, non-tender, no distention, positive bowel sounds Dx/Plan (1) Acute renal failure superimposed on stage 3 chronic kidney disease Code(s): N17.9 - ACUTE KIDNEY FAILURE, UNSPECIFIED; N18.3 - CHRONIC KIDNEY DISEASE, STAGE 3 (MODERATE) Status: Acute Comment: improving with fluids.monitor. avoid nephrotoxins (2) Cellulitis of foot Code(s): L03.119 - CELLULITIS OF UNSPECIFIED PART OF LIMB Status: Acute Comment: on Zosyn and Vancomycin, renally adjusted (3) Diabetic foot ulcer Code(s): E11.621 - TYPE 2 DIABETES MELLITUS WITH FOOT ULCER; L97.509 - NON- PRESSURE CHRONIC ULCER OTH PRT UNSP FOOT W UNSP SEVERITY Status: Acute Qualifiers: Diabetic foot ulcer location: midfoot Laterality: right Comment: Xray negative for osteomyelitis but re admitted for same w failure of Augmentin (4) Anemia of chronic disease Code(s): D63.8 - ANEMIA IN OTHER CHRONIC DISEASES CLASSIFIED ELSEWHERE Status : Chronic - Plan MRI indicates possible osteo -: will continue abx -: creatinine conitnues to improve * . Review of Systems - Review of Systems Respiratory: negative: Cough, Dry, Shortness of Breath, Hemoptysis, SOB with Excertion, Pleuritic Pain, Sputum, Wheezing Cardiovascular: negative: chest pain, palpitations, orthopnea, paroxysmal nocturnal dyspnea, edema, light headedness, other - Medications/Allergies Allergies/Adverse Reactions: Allergies Allergy/AdvReac Type Severity Reaction Status Date / Time No Known Allergies Allergy Verified 04/13/19 03:57 Medications: Current Medications Acetaminophen (Tylenol) 650 mg PO Q4H PRN PRN Reason: Headache/Fever/Mild Pain (1-3) Acetaminophen (Tylenol) 650 mg [place] Q4H PRN PRN Reason: Headache/Fever/Mild Pain (1-3) Hydrocodone Bitart/Acetaminophen ([place] 5/325) 1 tab PO Q4H PRN PRN Reason: Moderate Pain (4-6) Hydrocodone Bitart/Acetaminophen ([place] 5/325) 2 tab PO Q4H PRN PRN Reason: Severe Pain (7-10) Atorvastatin Calcium (Lipitor) 20 mg PO HS [facility] Last Admin: 04/27/19 20:15 Dose: 20 mg Dextrose/Water (Dextrose 50%) 25 gm SLOW IVP PRN PRN PRN Reason: Hypoglycemia Diphenhydramine HCl (Benadryl) 25 mg PO DAILYPRN PRN PRN Reason: Allergies Diphenoxylate HCl/Atropine (Lomotil) 1 tab PO Q6H PRN PRN Reason: Diarrhea/Loose Stools Last Admin: 04/27/19 01:35 Dose: 1 tab Famotidine (Pepcid) 20 mg PO QPM [facility] Last Admin: 04/27/19 20:16 Dose: 20 mg Flecainide Acetate (Tambocor) 100 mg PO BID [facility] Last Admin: 04/28/19 08:15 Dose: 100 mg Gabapentin (Neurontin) 600 mg PO [facility] Last Admin: 06/28/19 20:16 Dose: 600 mg Gabapentin (Neurontin) 300 mg PO 0900,1500 [facility] Last Admin: 04/28/19 16:51 Dose: 300 mg Glipizide (Glucotrol) 10 mg PO BID-AC [facility] Last Admin: 04/28/19 16:52 Dose: 10 mg Glucagon (Glucagon) 1 mg IM PRN PRN PRN Reason: Hypoglycemia Guaifenesin/Dextromethorphan (Robitussin Dm) 15 ml PO Q4H PRN PRN Reason: Cough Hydralazine HCl (Apresoline) 10 mg SLOW IVP Q4H PRN PRN Reason: SBP Greater Than 170 Last Admin: 04/28/19 00:04 Dose: 10 mg Sodium Chloride (Normal Saline 0.9%) 1,000 mls @ 100 mls/hr IV .Q10H [facility] Last Admin: 04/28/19 13:16 Dose: 1,000 mls Piperacillin Sod/Tazobactam (Sod 2.25 gm/ Sodium Chloride) 100 mls @ 200 mls/ hr IVPB 0200,1000,1800 [facility] Last Admin: 04/28/19 10:28 Dose: 100 mls Dextrose/Water (D5w) 1,000 mls @ 0 mls/hr IV .Q0M PRN PRN Reason: Hypoglycemia Insulin Glargine 30 units/ (Miscellaneous Medication) 0.3 mls @ 0 mls/hr SC HS [facility] Last Admin: 04/27/19 21:50 Dose: Not Given Insulin Glargine 40 units/ (Miscellaneous Medication) 0.4 mls @ 0 mls/hr SC QAM [facility] Last Admin: 04/28/19 09:20 Dose: 0.4 mls Vancomycin HCl 1 gm/ Device 200 mls @ 200 mls/hr IVPB Q24HR [facility] Last Admin: 04/27/19 21:51 Dose: 200 mls Insulin Human Lispro (Humalog) 0 units [place] .MODERATE SLIDING [place] PRN PRN Reason: Moderate Correctional Scale Last Admin: 04/28/19 13:11 Dose: 2 unit Insulin Human Lispro (Humalog) 0 units SC .BEDTIME SLIDING SC PRN PRN Reason: Bedtime Correctional Scale Loperamide HCl (Imodium) 2 mg PO PRN PRN PRN Reason: Diarrhea/Loose Stools Metoprolol Tartrate (Lopressor) 12.5 mg PO BID [facility] Last Admin: 04/28/19 08:15 Dose: 12.5 mg Miscellaneous Medication (Pharmacy To Dose) 1 each PO PRN PRN PRN Reason: Pharmacy to dose Miscellaneous Medication (Pharmacy To Dose) 1 each IVPB PRN PRN PRN Reason: Pharmacy to dose Ondansetron HCl (Zofran Odt) 4 mg PO Q6H PRN PRN Reason: Nausea/Vomiting Ondansetron HCl (Zofran) 4 mg IVP Q6H PRN PRN Reason: Nausea/Vomiting Prochlorperazine Maleate (Compazine) 10 mg PO Q6HR PRN PRN Reason: Nausea Saccharomyces Boulardii (Florastor) 250 mg PO DAILY [facility] Last Admin: 04/28/19 08:15 Dose: 250 mg Senna/Docusate Sodium (Senokot S) 2 tab PO BID PRN PRN Reason: Constipation Sodium Chloride (Flush - Normal Saline) 10 ml IVF Q12HR [facility] Last Admin: 04/28/19 08:17 Dose: Not Given Sodium Chloride (Flush - Normal Saline) 10 ml IVF PRN PRN PRN Reason: Saline Flush Warfarin Sodium (Coumadin) 5 mg PO SuTuWeThSa@1700 [facility] Last Admin: 04/28/19 16:53 Dose: 5 mg Warfarin Sodium (Coumadin) 7.5 mg PO MoFr@1700 [facility] Last Admin: 04/27/19 16:20 Dose: 7.5 mg
[2019-04-28] MEDS: Atorvastatin Calcium 20 MG TAB PO SCH (21:05)
[2019-04-28] MEDS: Famotidine 20 MG TAB PO SCH (21:05)
[2019-04-28] MEDS: Insulin Glargine 30 UNITS in Pre-Filled Syringe 1 EACH SC SCH (21:07)
[2019-04-28] MEDS: Vancomycin HCl 1 GM in Premix Bag 1 BAG IVPB SCH (21:07)
[2019-04-29] MEDS: Piperacillin/Tazobactam 2.25 GM in Sodium Chloride 0.9% 100 ML IVPB SCH ×3 (01:21→18:04)
--- NOTE | 2019-04-29 01:31 | CON ---
DATE OF CONSULTATION: 04/28/2019 REASON FOR CONSULTATION: Right foot inflammatory process. HISTORY OF PRESENT ILLNESS: A 68-year-old with history of type 2 diabetes, neuropathy, and a previous ulcer in the right lateral foot, recently treated for urinary tract infection and discharged on oral Augmentin, readmitted with worsening inflammatory changes. He also has a history of colon cancer and is on chemotherapy with 5-FU under Dr. Huff' supervision. He does developed diarrhea following chemotherapy. Initial findings included a BP 170/90, pulse 74, respirations 16, temperature 97.7, O2 saturation 98. He is obese, but no distress. Lungs and heart exam normal. Abdomen soft, nontender. There was an ulcer in the lateral aspect of the right 5th MTP, round shaped, measuring about 0.8 cm. There is erythema surrounding this ulcerated region. Imaging included a foot x-ray which demonstrated fourth metatarsal amputation, but no other osseous lesions, specifically the fifth metatarsophalangeal area without osseous lesions. An MRI of the area was completed and it showed marrow edema changes at the fifth metatarsal head proximal phalanx. Currently, he appears in no distress. No headaches. No sore throat, odynophagia, or dysphagia. No dyspnea or chest pain. No abdominal pain or diarrhea. No genitourinary symptoms. No vomiting. No hematemesis or melena. No neurological symptoms. PAST MEDICAL HISTORY: Type 2 diabetes, colon cancer, metastatic to liver and lungs, hypertension, chemotherapy through a port in the right subclavian location, neuropathy, sleep apnea, obesity, renal insufficiency stage 3, prior 4th toe osteomyelitis which required amputation, atrial fibrillation, urinary retention. PAST SURGICAL HISTORY: Partial colectomy, MediPort placement, cholecystectomy, partial liver resection, 4th toe amputation, hernia repair, atrial fibrillation ablation x2. SOCIAL HISTORY: . Never smoker. FAMILY HISTORY: Hypertension, diabetes. ALLERGIES: NONE. CURRENT MEDICATIONS: Lipitor, Neurontin, Glucotrol, insulin, metoprolol, Zosyn, vancomycin. PHYSICAL EXAMINATION: VITAL SIGNS: T-max 98.1, BP 160/84, pulse 73, respirations 18, O2 saturation 96. SKIN: Shows the right foot with the fifth MPJ site with an ulcerated area, round-shaped. I probed this area and could not reach bone, so it seemed to be covered by the periosteum and soft tissue. LYMPH: The patient has no lymphadenopathy. HEENT: Noncontributory. NECK: Supple. No jugular vein distention. LUNGS: Symmetric, clear breath sounds. HEART: S1 and S2, regular rate. No S3 or S4. ABDOMEN: Soft. Not distended or tender. No ascites. No bladder distention. EXTREMITIES: Pulses are 1+ in dorsalis pedis, popliteals are 1+ bilaterally. NEUROLOGIC: Nonfocal including cognitive function. LABORATORY DATA: White cell count 10.1, now 7.9. Hemoglobin 9.4, MCV 97, platelets 231 with 78% neutrophils. INR 2.3. Sodium 136, creatinine 2.19, which is lower than admission. Liver profile within normal limits. Albumin 4.0. Vancomycin trough 17. MICROBIOLOGY: Pseudomonas aeruginosa, Klebsiella, Staph aureus. Pseudomonas was susceptibility tested. The other ones were not yet. A repeat culture will be submitted. ASSESSMENT AND PLAN: Type 2 diabetes, ischemic cardiomyopathy; atrial fibrillation, on Coumadin; and prior amputation of 4th ray, right foot, now with inflammatory changes and neuropathic ulcer with evidence of osteomyelitis on MRI. I have discussed options for management with the patient since there is no bone destruction and no obvious exposure of bone on physical exam. He would prefer to attempt to salvage. We will wait to see if we get the susceptibility results for the other 2 organisms to devise a treatment, probably will need IV therapy and depending on a Staphylococcus aureus susceptibility, could be either cefepime or combination of vancomycin with cefepime or vancomycin and meropenem. Job ID: [id number]
[2019-04-29 06:32] LABS: INR-International Normal Ratio 2.9; Prothrombin Time 30.3 SEC (12.0-14.7)
[2019-04-29] MEDS: glipiZIDE 10 MG TAB PO SCH ×2 (08:16→16:42)
[2019-04-29] MEDS: Saccharomyces boulardii 250 MG CAP PO SCH (08:17)
[2019-04-29] MEDS: Gabapentin 300 MG CAP PO SCH ×3 (08:17→22:05)
[2019-04-29] MEDS: Metoprolol Tartrate 25 MG TAB PO SCH ×2 (08:18→22:06)
[2019-04-29] MEDS: Flecainide 50 MG TAB PO SCH ×2 (08:18→22:05)
[2019-04-29] MEDS: Insulin Glargine 40 UNITS in Pre-Filled Syringe 1 EACH SC SCH (09:33)
[2019-04-29] MEDS: HumaLOG 300 UNITS/3 ML VIAL SC PRN (12:37)
--- NOTE | 2019-04-29 13:27 | PDOC.PN ---
- Subjective Encounter Start Date: 04/29/19 Encounter Start Time: 10:15 Subjective: pt up in bed no complains - Objective Resuscitation Status - Order Detail: 04/25/19 19:39 Resuscitation Status Routine Resuscitation Status: FULL: Full Resuscitation Discussed with: Patient Vital Signs & Weight: Vital Signs (12 hours) Temp Pulse Resp BP Pulse Ox 04/29/19 08:09 98.1 F 69 20 178/82 H 97 04/29/19 08:00 98.1 F Weight Admit Weight 223 lb 6.4 oz Weight 223 lb 6.4 oz I&O: 04/28/19 04/29/19 04/30/19 06:59 06:59 06:59 Intake Total 1932 2578 360 Balance 1932 2578 360 Result Diagrams: 04/28/19 05:38 04/28/19 05:38 Additional Labs: Accuchecks 04/29/19 04/29/19 04/28/19 12:04 05:03 20:47 POC Glucose 196 H 132 H 177 H 04/28/19 16:31 POC Glucose 181 H Phys Exam - Physical Examination Neck: no nodes, no JVD, supple, full ROM Respiratory: no wheezing, no rales, no rhonchi, wheezing present, clear to auscultation bilateral Cardiovascular: RRR, no significant murmur, no rub, gallop, irregular Gastrointestinal: soft, non-tender, no distention, positive bowel sounds Neurological: non-focal, normal sensation, moves all 4 limbs Dx/Plan (1) Acute renal failure superimposed on stage 3 chronic kidney disease Code(s): N17.9 - ACUTE KIDNEY FAILURE, UNSPECIFIED; N18.3 - CHRONIC KIDNEY DISEASE, STAGE 3 (MODERATE) Status: Acute Comment: improving with fluids.monitor. avoid nephrotoxins (2) Cellulitis of foot Code(s): L03.119 - CELLULITIS OF UNSPECIFIED PART OF LIMB Status: Acute Comment: on Zosyn and Vancomycin, renally adjusted (3) Diabetic foot ulcer Code(s): E11.621 - TYPE 2 DIABETES MELLITUS WITH FOOT ULCER; L97.509 - NON- PRESSURE CHRONIC ULCER OTH PRT UNSP FOOT W UNSP SEVERITY Status: Acute Qualifiers: Diabetic foot ulcer location: midfoot Laterality: right Comment: Xray negative for osteomyelitis but re admitted for same w failure of Augmentin (4) Anemia of chronic disease Code(s): D63.8 - ANEMIA IN OTHER CHRONIC DISEASES CLASSIFIED ELSEWHERE Status : Chronic - Plan will await cx per id recommendation to see what abx -: He does want to salvage his left foot -: will check labs in am to follow creatinine * . Review of Systems - Review of Systems Respiratory: negative: Cough, Dry, Shortness of Breath, Hemoptysis, SOB with Excertion, Pleuritic Pain, Sputum, Wheezing Cardiovascular: negative: chest pain, palpitations, orthopnea, paroxysmal nocturnal dyspnea, edema, light headedness, other Gastrointestinal: negative: Nausea, Vomiting, Abdominal Pain, Diarrhea, Constipation, Melena, Hematochezia, Other - Medications/Allergies Allergies/Adverse Reactions: Allergies Allergy/AdvReac Type Severity Reaction Status Date / Time No Known Allergies Allergy Verified 04/13/19 03:57 Medications: Current Medications Acetaminophen (Tylenol) 650 mg PO Q4H PRN PRN Reason: Headache/Fever/Mild Pain (1-3) Acetaminophen (Tylenol) 650 mg [place] Q4H PRN PRN Reason: Headache/Fever/Mild Pain (1-3) Hydrocodone Bitart/Acetaminophen ([place] 5/325) 1 tab PO Q4H PRN PRN Reason: Moderate Pain (4-6) Last Admin: 04/29/19 08:24 Dose: 1 tab Hydrocodone Bitart/Acetaminophen ([place] 5/325) 2 tab PO Q4H PRN PRN Reason: Severe Pain (7-10) Atorvastatin Calcium (Lipitor) 20 mg PO HS [facility] Last Admin: 04/28/19 21:05 Dose: 20 mg Dextrose/Water (Dextrose 50%) 25 gm SLOW IVP PRN PRN PRN Reason: Hypoglycemia Diphenhydramine HCl (Benadryl) 25 mg PO DAILYPRN PRN PRN Reason: Allergies Diphenoxylate HCl/Atropine (Lomotil) 1 tab PO Q6H PRN PRN Reason: Diarrhea/Loose Stools Last Admin: 04/27/19 01:35 Dose: 1 tab Famotidine (Pepcid) 20 mg PO QPM [facility] Last Admin: 04/28/19 21:05 Dose: 20 mg Flecainide Acetate (Tambocor) 100 mg PO BID [facility] Last Admin: 04/29/19 08:18 Dose: 100 mg Gabapentin (Neurontin) 600 mg PO [facility] Last Admin: 04/28/19 21:04 Dose: 600 mg Gabapentin (Neurontin) 300 mg PO 0900,1500 [facility] Last Admin: 04/29/19 08:17 Dose: 300 mg Glipizide (Glucotrol) 10 mg PO BID-AC [facility] Last Admin: 04/29/19 08:16 Dose: 10 mg Glucagon (Glucagon) 1 mg IM PRN PRN PRN Reason: Hypoglycemia Guaifenesin/Dextromethorphan (Robitussin Dm) 15 ml PO Q4H PRN PRN Reason: Cough Hydralazine HCl (Apresoline) 10 mg SLOW IVP Q4H PRN PRN Reason: SBP Greater Than 170 Last Admin: 04/28/19 00:04 Dose: 10 mg Sodium Chloride (Normal Saline 0.9%) 1,000 mls @ 100 mls/hr IV .Q10H [facility] Last Admin: 04/28/19 21:14 Dose: 1,000 mls Piperacillin Sod/Tazobactam (Sod 2.25 gm/ Sodium Chloride) 100 mls @ 200 mls/ hr IVPB 0200,1000,1800 [facility] Last Admin: 04/29/19 09:37 Dose: 100 mls Dextrose/Water (D5w) 1,000 mls @ 0 mls/hr IV .Q0M PRN PRN Reason: Hypoglycemia Insulin Glargine 30 units/ (Miscellaneous Medication) 0.3 mls @ 0 mls/hr SC [facility] Last Admin: 04/28/19 21:07 Dose: 0.3 mls Insulin Glargine 40 units/ (Miscellaneous Medication) 0.4 mls @ 0 mls/hr SC QAM [facility] Last Admin: 04/29/19 09:33 Dose: 0.4 mls Vancomycin HCl 1 gm/ Device 200 mls @ 200 mls/hr IVPB Q24HR [facility] Last Admin: 04/28/19 21:07 Dose: 200 mls Insulin Human Lispro (Humalog) 0 units SC .MODERATE SLIDING SC PRN PRN Reason: Moderate Correctional Scale Last Admin: 04/29/19 12:37 Dose: 2 unit Insulin Human Lispro (Humalog) 0 units SC .BEDTIME SLIDING SC PRN PRN Reason: Bedtime Correctional Scale Loperamide HCl (Imodium) 2 mg PO PRN PRN PRN Reason: Diarrhea/Loose Stools Metoprolol Tartrate (Lopressor) 12.5 mg PO BID [facility] Last Admin: 04/29/19 08:18 Dose: 12.5 mg Miscellaneous Medication (Pharmacy To Dose) 1 each PO PRN PRN PRN Reason: Pharmacy to dose Miscellaneous Medication (Pharmacy To Dose) 1 each IVPB PRN PRN PRN Reason: Pharmacy to dose Ondansetron HCl (Zofran Odt) 4 mg PO Q6H PRN PRN Reason: Nausea/Vomiting Ondansetron HCl (Zofran) 4 mg IVP Q6H PRN PRN Reason: Nausea/Vomiting Prochlorperazine Maleate (Compazine) 10 mg PO Q6HR PRN PRN Reason: Nausea Saccharomyces Boulardii (Florastor) 250 mg PO DAILY [facility] Last Admin: 04/29/19 08:17 Dose: 250 mg Senna/Docusate Sodium (Senokot S) 2 tab PO BID PRN PRN Reason: Constipation Sodium Chloride (Flush - Normal Saline) 10 ml IVF Q12HR [facility] Last Admin: 04/29/19 08:19 Dose: 10 ml Sodium Chloride (Flush - Normal Saline) 10 ml IVF PRN PRN PRN Reason: Saline Flush Warfarin Sodium (Coumadin) 5 mg PO 1700 [facility]
[2019-04-29] MEDS: Sodium Chloride 0.9% 1,000 ML IV SCH (14:46)
[2019-04-29] MEDS ORDERED: Warfarin Sodium 5 MG TAB PO SCH (17:00)
[2019-04-29 20:40] LABS: Vancomycin, Trough 19.5 ug/mL
[2019-04-29] MEDS: Vancomycin HCl 1 GM in Premix Bag 1 BAG IVPB SCH (22:04)
[2019-04-29] MEDS: Famotidine 20 MG TAB PO SCH (22:05)
[2019-04-29] MEDS: Atorvastatin Calcium 20 MG TAB PO SCH (22:05)
[2019-04-29] MEDS: Insulin Glargine 30 UNITS in Pre-Filled Syringe 1 EACH SC SCH (22:06)
[2019-04-30] MEDS: Sodium Chloride 0.9% 1,000 ML IV SCH ×3 (01:02→18:09)
[2019-04-30] MEDS: cefTRIAXone\\ROCEPHIN 2 GM in Sodium Chloride 0.9% 100 ML IVPB SCH (01:41)
[2019-04-30 05:27] LABS: INR-International Normal Ratio 3.7; Prothrombin Time 36.4 SEC (12.0-14.7)
[2019-04-30 05:38] LABS: Anion Gap 13 mmol/L (10-20); BUN (Urea Nitrogen) 20 mg/dL (8.4-25.7); Calc. Creatinine Clearance 44 mL/min (70-130); Calcium 8.4 mg/dL (7.8-10.44); Carbon Dioxide 23 mmol/L (23-31); Chloride 106 mmol/L (98-107); Estimated GFR-MDRD 29; Glucose 76 mg/dL (80-115); Potassium 3.8 mmol/L (3.5-5.1); Sodium 138 mmol/L (136-145)
[2019-04-30 05:45] LABS: Band 2 % (5-11); Eosinophils 1 % (0-10); Hemoglobin 9.1 g/dL (14.0-18.0); Hypochromia SLIGHT = 6-15 cells (100X) (0-5/hpf); Lymphocytes 15 % (21-51); MDiff Complete? YES; Mean Corpuscular HGB CONC 33.6 g/dL (32.0-36.0); Mean Corpuscular Hemoglobin 32.9 pg (27.0-31.0); Mean Corpuscular Volume 97.8 fL (78.0-98.0); Metamyelocyte 1 % (0-0); Monocytes 4 % (0-10); Neutrophil 77 % (42-75); Platelet Count 238 thou/uL (130-400); Platelet Morphology Comment Appears Adequate; RBC Distribution Width 13.3 % (11.5-14.5); Red Blood Cell (RBC) Count 2.77 mill/uL (4.70-6.10); White Blood Cell (WBC) Count 8.3 thou/uL (4.8-10.8)
[2019-04-30] MEDS: Flecainide 50 MG TAB PO SCH ×2 (08:04→21:12)
[2019-04-30] MEDS: glipiZIDE 10 MG TAB PO SCH ×2 (08:04→16:27)
[2019-04-30] MEDS: Saccharomyces boulardii 250 MG CAP PO SCH (08:04)
[2019-04-30] MEDS: Metoprolol Tartrate 25 MG TAB PO SCH ×2 (08:04→21:11)
[2019-04-30] MEDS: Insulin Glargine 40 UNITS in Pre-Filled Syringe 1 EACH SC SCH (08:07)
[2019-04-30] MEDS: Gabapentin 300 MG CAP PO SCH ×2 (12:26→21:22)
[2019-04-30] MEDS: Gabapentin 100 MG CAP PO SCH (15:03)
[2019-04-30] MEDS: HumaLOG 300 UNITS/3 ML VIAL SC PRN (18:08)
[2019-04-30] MEDS: Vancomycin HCl 1 GM in Premix Bag 1 BAG IVPB SCH (21:11)
[2019-04-30] MEDS: Famotidine 20 MG TAB PO SCH (21:12)
[2019-04-30] MEDS: Atorvastatin Calcium 20 MG TAB PO SCH (21:12)
[2019-04-30] MEDS: Insulin Glargine 30 UNITS in Pre-Filled Syringe 1 EACH SC SCH (21:13)
[2019-05-01] MEDS: cefTRIAXone\\ROCEPHIN 2 GM in Sodium Chloride 0.9% 100 ML IVPB SCH (01:04)
[2019-05-01] MEDS: Sodium Chloride 0.9% 1,000 ML IV SCH ×2 (05:33→16:06)
[2019-05-01 05:48] LABS: INR-International Normal Ratio 3.2; Prothrombin Time 32.9 SEC (12.0-14.7)
[2019-05-01] MEDS: Flecainide 50 MG TAB PO SCH ×2 (07:53→20:32)
[2019-05-01] MEDS: glipiZIDE 10 MG TAB PO SCH ×2 (07:53→16:06)
[2019-05-01] MEDS: Metoprolol Tartrate 25 MG TAB PO SCH ×2 (07:54→20:33)
[2019-05-01] MEDS: Gabapentin 100 MG CAP PO SCH ×2 (07:54→15:04)
[2019-05-01] MEDS: Saccharomyces boulardii 250 MG CAP PO SCH (07:54)
[2019-05-01] MEDS: Insulin Glargine 40 UNITS in Pre-Filled Syringe 1 EACH SC SCH (09:07)
[2019-05-01] MEDS: HumaLOG 300 UNITS/3 ML VIAL SC PRN (16:33)
[2019-05-01] MEDS: Vancomycin HCl 1 GM in Premix Bag 1 BAG IVPB SCH (20:32)
[2019-05-01] MEDS: Gabapentin 300 MG CAP PO SCH (20:32)
[2019-05-01] MEDS: Atorvastatin Calcium 20 MG TAB PO SCH (20:33)
[2019-05-01] MEDS: Famotidine 20 MG TAB PO SCH (20:33)
[2019-05-01] MEDS: Insulin Glargine 30 UNITS in Pre-Filled Syringe 1 EACH SC SCH (20:33)
[2019-05-02] MEDS: cefTRIAXone\\ROCEPHIN 2 GM in Sodium Chloride 0.9% 100 ML IVPB SCH (01:50)
[2019-05-02] MEDS: Sodium Chloride 0.9% 1,000 ML IV SCH ×2 (04:46→11:24)
[2019-05-02 06:14] LABS: INR-International Normal Ratio 2.5; Prothrombin Time 26.6 SEC (12.0-14.7)
[2019-05-02] MEDS: Insulin Glargine 40 UNITS in Pre-Filled Syringe 1 EACH SC SCH (08:03)
[2019-05-02] MEDS: Flecainide 50 MG TAB PO SCH ×2 (08:04→20:58)
[2019-05-02] MEDS: Saccharomyces boulardii 250 MG CAP PO SCH (08:04)
[2019-05-02] MEDS: Metoprolol Tartrate 25 MG TAB PO SCH ×2 (08:04→20:58)
[2019-05-02] MEDS: glipiZIDE 10 MG TAB PO SCH ×2 (08:04→16:56)
[2019-05-02] MEDS: Gabapentin 100 MG CAP PO SCH ×2 (08:05→14:47)
--- NOTE | 2019-05-02 08:52 | PDOC.PN ---
- Subjective Encounter Start Date: 04/30/19 Encounter Start Time: 10:30 Subjective: pt up in bed no complains - Objective Resuscitation Status - Order Detail: 04/25/19 19:39 Resuscitation Status Routine Resuscitation Status: FULL: Full Resuscitation Discussed with: Patient Vital Signs & Weight: Vital Signs (12 hours) Temp Pulse Resp BP Pulse Ox 05/02/19 07:47 98.2 F 66 16 165/82 H 95 Weight Admit Weight 223 lb 6.4 oz Weight 223 lb 6.4 oz I&O: 05/01/19 05/02/19 05/03/19 06:59 06:59 06:59 Intake Total 2660 1080 Output Total 800 Balance 1860 1080 Result Diagrams: 04/30/19 04:44 04/30/19 04:44 Additional Labs: Accuchecks 05/02/19 05/01/19 05/01/19 05:16 20:34 16:12 POC Glucose 135 H 142 H 234 H 05/01/19 10:37 POC Glucose 187 H Phys Exam - Physical Examination Neck: no nodes, no JVD, supple, full ROM Respiratory: no wheezing, no rales, no rhonchi, wheezing present, clear to auscultation bilateral Cardiovascular: RRR, no significant murmur, no rub, gallop, irregular Gastrointestinal: soft, non-tender, no distention, positive bowel sounds Dx/Plan (1) Acute renal failure superimposed on stage 3 chronic kidney disease Code(s): N17.9 - ACUTE KIDNEY FAILURE, UNSPECIFIED; N18.3 - CHRONIC KIDNEY DISEASE, STAGE 3 (MODERATE) Status: Acute Comment: improving with fluids.monitor. avoid nephrotoxins (2) Cellulitis of foot Code(s): L03.119 - CELLULITIS OF UNSPECIFIED PART OF LIMB Status: Acute Comment: on Zosyn and Vancomycin, renally adjusted (3) Diabetic foot ulcer Code(s): E11.621 - TYPE 2 DIABETES MELLITUS WITH FOOT ULCER; L97.509 - NON- PRESSURE CHRONIC ULCER OTH PRT UNSP FOOT W UNSP SEVERITY Status: Acute Qualifiers: Diabetic foot ulcer location: midfoot Laterality: right Comment: Xray negative for osteomyelitis but re admitted for same w failure of Augmentin (4) Anemia of chronic disease Code(s): D63.8 - ANEMIA IN OTHER CHRONIC DISEASES CLASSIFIED ELSEWHERE Status : Chronic - Plan pt medically stable waiting for ID for abx recommendation * . Review of Systems - Review of Systems ENT: negative: Ear Pain, Ear Discharge, Nose Pain, Nose Discharge, Nose Congestion, Mouth Pain, Mouth Swelling, Throat Pain, Throat Swelling, Other Respiratory: negative: Cough, Dry, Shortness of Breath, Hemoptysis, SOB with Excertion, Pleuritic Pain, Sputum, Wheezing Cardiovascular: negative: chest pain, palpitations, orthopnea, paroxysmal nocturnal dyspnea, edema, light headedness, other - Medications/Allergies Allergies/Adverse Reactions: Allergies Allergy/AdvReac Type Severity Reaction Status Date / Time No Known Allergies Allergy Verified 04/13/19 03:57 Medications: Current Medications Acetaminophen (Tylenol) 650 mg PO Q4H PRN PRN Reason: Headache/Fever/Mild Pain (1-3) Acetaminophen (Tylenol) 650 mg [place] Q4H PRN PRN Reason: Headache/Fever/Mild Pain (1-3) Hydrocodone Bitart/Acetaminophen ([place] 5/325) 1 tab PO Q4H PRN PRN Reason: Moderate Pain (4-6) Last Admin: 04/29/19 08:24 Dose: 1 tab Hydrocodone Bitart/Acetaminophen ([place] 5/325) 2 tab PO Q4H PRN PRN Reason: Severe Pain (7-10) Last Admin: 04/30/19 00:25 Dose: 2 tab Atorvastatin Calcium (Lipitor) 20 mg PO [facility] Last Admin: 05/01/19 20:33 Dose: 20 mg Dextrose/Water (Dextrose 50%) 25 gm SLOW IVP PRN PRN PRN Reason: Hypoglycemia Diphenhydramine HCl (Benadryl) 25 mg PO DAILYPRN PRN PRN Reason: Allergies Diphenoxylate HCl/Atropine (Lomotil) 1 tab PO Q6H PRN PRN Reason: Diarrhea/Loose Stools Last Admin: 04/27/19 01:35 Dose: 1 tab Famotidine (Pepcid) 20 mg PO QPM [facility] Last Admin: 05/01/19 20:33 Dose: 20 mg Flecainide Acetate (Tambocor) 100 mg PO BID [facility] Last Admin: 05/02/19 08:04 Dose: 100 mg Gabapentin (Neurontin) 600 mg PO [facility] Last Admin: 05/01/19 20:32 Dose: 600 mg Gabapentin (Neurontin) 300 mg PO 0900,1500 [facility] Last Admin: 05/02/19 08:05 Dose: 300 mg Glipizide (Glucotrol) 10 mg PO BID-AC [facility] Last Admin: 05/02/19 08:04 Dose: 10 mg Glucagon (Glucagon) 1 mg IM PRN PRN PRN Reason: Hypoglycemia Guaifenesin/Dextromethorphan (Robitussin Dm) 15 ml PO Q4H PRN PRN Reason: Cough Hydralazine HCl (Apresoline) 10 mg SLOW IVP Q4H PRN PRN Reason: SBP Greater Than 170 Last Admin: 04/28/19 00:04 Dose: 10 mg Sodium Chloride (Normal Saline 0.9%) 1,000 mls @ 100 mls/hr IV .Q10H [facility] Last Admin: 05/02/19 04:46 Dose: Not Given Dextrose/Water (D5w) 1,000 mls @ 0 mls/hr IV .Q0M PRN PRN Reason: Hypoglycemia Insulin Glargine 30 units/ (Miscellaneous Medication) 0.3 mls @ 0 mls/hr SC [facility] Last Admin: 05/01/19 20:33 Dose: Not Given Insulin Glargine 40 units/ (Miscellaneous Medication) 0.4 mls @ 0 mls/hr SC QAM [facility] Last Admin: 05/02/19 08:03 Dose: 0.4 mls Vancomycin HCl 1 gm/ Device 200 mls @ 200 mls/hr IVPB Q24HR [facility] Last Admin: 05/01/19 20:32 Dose: 200 mls Ceftriaxone Sodium 2 gm/ (Sodium Chloride) 100 mls @ 200 mls/hr IVPB Q24HR [facility] Last Admin: 05/02/19 01:50 Dose: 100 mls Insulin Human Lispro (Humalog) 0 units SC .MODERATE SLIDING SC PRN PRN Reason: Moderate Correctional Scale Last Admin: 05/01/19 16:33 Dose: 4 unit Insulin Human Lispro (Humalog) 0 units SC .BEDTIME SLIDING SC PRN PRN Reason: Bedtime Correctional Scale Loperamide HCl (Imodium) 2 mg PO PRN PRN PRN Reason: Diarrhea/Loose Stools Metoprolol Tartrate (Lopressor) 12.5 mg PO BID [facility] Last Admin: 05/02/19 08:04 Dose: 12.5 mg Miscellaneous Medication (Pharmacy To Dose) 1 each PO PRN PRN PRN Reason: Pharmacy to dose Miscellaneous Medication (Pharmacy To Dose) 1 each IVPB PRN PRN PRN Reason: Pharmacy to dose Ondansetron HCl (Zofran Odt) 4 mg PO Q6H PRN PRN Reason: Nausea/Vomiting Ondansetron HCl (Zofran) 4 mg IVP Q6H PRN PRN Reason: Nausea/Vomiting Prochlorperazine Maleate (Compazine) 10 mg PO Q6HR PRN PRN Reason: Nausea Saccharomyces Boulardii (Florastor) 250 mg PO DAILY [facility] Last Admin: 05/02/19 08:04 Dose: 250 mg Senna/Docusate Sodium (Senokot S) 2 tab PO BID PRN PRN Reason: Constipation Sodium Chloride (Flush - Normal Saline) 10 ml IVF Q12HR [facility] Last Admin: 05/02/19 08:11 Dose: Not Given Sodium Chloride (Flush - Normal Saline) 10 ml IVF PRN PRN PRN Reason: Saline Flush Warfarin Sodium (Coumadin) 5 mg PO 1700 [facility]
--- NOTE | 2019-05-02 08:54 | PDOC.PN ---
- Subjective Encounter Start Date: 05/01/19 Encounter Start Time: 11:45 Subjective: pt up in bed no complains - Objective Resuscitation Status - Order Detail: 04/25/19 19:39 Resuscitation Status Routine Resuscitation Status: FULL: Full Resuscitation Discussed with: Patient Vital Signs & Weight: Vital Signs (12 hours) Temp Pulse Resp BP Pulse Ox 05/02/19 07:47 98.2 F 66 16 165/82 H 95 Weight Admit Weight 223 lb 6.4 oz Weight 223 lb 6.4 oz I&O: 05/01/19 05/02/19 05/03/19 06:59 06:59 06:59 Intake Total 2660 1080 Output Total 800 Balance 1860 1080 Result Diagrams: 04/30/19 04:44 04/30/19 04:44 Additional Labs: Accuchecks 05/02/19 05/01/19 05/01/19 05:16 20:34 16:12 POC Glucose 135 H 142 H 234 H 05/01/19 10:37 POC Glucose 187 H Phys Exam - Physical Examination Neck: no nodes, no JVD, supple, full ROM Respiratory: no wheezing, no rales, no rhonchi, wheezing present, clear to auscultation bilateral Cardiovascular: RRR, no significant murmur, no rub, gallop, irregular Gastrointestinal: soft, non-tender, no distention, positive bowel sounds Dx/Plan (1) Acute renal failure superimposed on stage 3 chronic kidney disease Code(s): N17.9 - ACUTE KIDNEY FAILURE, UNSPECIFIED; N18.3 - CHRONIC KIDNEY DISEASE, STAGE 3 (MODERATE) Status: Acute Comment: improving with fluids.monitor. avoid nephrotoxins (2) Cellulitis of foot Code(s): L03.119 - CELLULITIS OF UNSPECIFIED PART OF LIMB Status: Acute Comment: on Zosyn and Vancomycin, renally adjusted (3) Diabetic foot ulcer Code(s): E11.621 - TYPE 2 DIABETES MELLITUS WITH FOOT ULCER; L97.509 - NON- PRESSURE CHRONIC ULCER OTH PRT UNSP FOOT W UNSP SEVERITY Status: Acute Qualifiers: Diabetic foot ulcer location: midfoot Laterality: right Comment: Xray negative for osteomyelitis but re admitted for same w failure of Augmentin (4) Anemia of chronic disease Code(s): D63.8 - ANEMIA IN OTHER CHRONIC DISEASES CLASSIFIED ELSEWHERE Status : Chronic - Plan pt up in bed no complains -: pt now wants to go to [place] since feels overwhelmed * . Review of Systems - Review of Systems Respiratory: negative: Cough, Dry, Shortness of Breath, Hemoptysis, SOB with Excertion, Pleuritic Pain, Sputum, Wheezing Cardiovascular: negative: chest pain, palpitations, orthopnea, paroxysmal nocturnal dyspnea, edema, light headedness, other Gastrointestinal: negative: Nausea, Vomiting, Abdominal Pain, Diarrhea, Constipation, Melena, Hematochezia, Other - Medications/Allergies Allergies/Adverse Reactions: Allergies Allergy/AdvReac Type Severity Reaction Status Date / Time No Known Allergies Allergy Verified 04/13/19 03:57 Medications: Current Medications Acetaminophen (Tylenol) 650 mg PO Q4H PRN PRN Reason: Headache/Fever/Mild Pain (1-3) Acetaminophen (Tylenol) 650 mg [place] Q4H PRN PRN Reason: Headache/Fever/Mild Pain (1-3) Hydrocodone Bitart/Acetaminophen ([place] 5/325) 1 tab PO Q4H PRN PRN Reason: Moderate Pain (4-6) Last Admin: 04/29/19 08:24 Dose: 1 tab Hydrocodone Bitart/Acetaminophen ([place] 5/325) 2 tab PO Q4H PRN PRN Reason: Severe Pain (7-10) Last Admin: 04/30/19 00:25 Dose: 2 tab Atorvastatin Calcium (Lipitor) 20 mg PO [facility] Last Admin: 05/01/19 20:33 Dose: 20 mg Dextrose/Water (Dextrose 50%) 25 gm SLOW IVP PRN PRN PRN Reason: Hypoglycemia Diphenhydramine HCl (Benadryl) 25 mg PO DAILYPRN PRN PRN Reason: Allergies Diphenoxylate HCl/Atropine (Lomotil) 1 tab PO Q6H PRN PRN Reason: Diarrhea/Loose Stools Last Admin: 04/27/19 01:35 Dose: 1 tab Famotidine (Pepcid) 20 mg PO QPM [facility] Last Admin: 05/01/19 20:33 Dose: 20 mg Flecainide Acetate (Tambocor) 100 mg PO BID [facility] Last Admin: 05/02/19 08:04 Dose: 100 mg Gabapentin (Neurontin) 600 mg PO [facility] Last Admin: 05/01/19 20:32 Dose: 600 mg Gabapentin (Neurontin) 300 mg PO 0900,1500 [facility] Last Admin: 05/02/19 08:05 Dose: 300 mg Glipizide (Glucotrol) 10 mg PO BID-AC [facility] Last Admin: 05/02/19 08:04 Dose: 10 mg Glucagon (Glucagon) 1 mg IM PRN PRN PRN Reason: Hypoglycemia Guaifenesin/Dextromethorphan (Robitussin Dm) 15 ml PO Q4H PRN PRN Reason: Cough Hydralazine HCl (Apresoline) 10 mg SLOW IVP Q4H PRN PRN Reason: SBP Greater Than 170 Last Admin: 04/28/19 00:04 Dose: 10 mg Sodium Chloride (Normal Saline 0.9%) 1,000 mls @ 100 mls/hr IV .Q10H [facility] Last Admin: 05/02/19 04:46 Dose: Not Given Dextrose/Water (D5w) 1,000 mls @ 0 mls/hr IV .Q0M PRN PRN Reason: Hypoglycemia Insulin Glargine 30 units/ (Miscellaneous Medication) 0.3 mls @ 0 mls/hr SC HS [facility] Last Admin: 05/01/19 20:33 Dose: Not Given Insulin Glargine 40 units/ (Miscellaneous Medication) 0.4 mls @ 0 mls/hr SC QAM [facility] Last Admin: 05/02/19 08:03 Dose: 0.4 mls Vancomycin HCl 1 gm/ Device 200 mls @ 200 mls/hr IVPB Q24HR [facility] Last Admin: 05/01/19 20:32 Dose: 200 mls Ceftriaxone Sodium 2 gm/ (Sodium Chloride) 100 mls @ 200 mls/hr IVPB Q24HR [facility] Last Admin: 05/02/19 01:50 Dose: 100 mls Insulin Human Lispro (Humalog) 0 units SC .MODERATE SLIDING SC PRN PRN Reason: Moderate Correctional Scale Last Admin: 05/01/19 16:33 Dose: 4 unit Insulin Human Lispro (Humalog) 0 units SC .BEDTIME SLIDING SC PRN PRN Reason: Bedtime Correctional Scale Loperamide HCl (Imodium) 2 mg PO PRN PRN PRN Reason: Diarrhea/Loose Stools Metoprolol Tartrate (Lopressor) 12.5 mg PO BID [facility] Last Admin: 05/02/19 08:04 Dose: 12.5 mg Miscellaneous Medication (Pharmacy To Dose) 1 each PO PRN PRN PRN Reason: Pharmacy to dose Miscellaneous Medication (Pharmacy To Dose) 1 each IVPB PRN PRN PRN Reason: Pharmacy to dose Ondansetron HCl (Zofran Odt) 4 mg PO Q6H PRN PRN Reason: Nausea/Vomiting Ondansetron HCl (Zofran) 4 mg IVP Q6H PRN PRN Reason: Nausea/Vomiting Prochlorperazine Maleate (Compazine) 10 mg PO Q6HR PRN PRN Reason: Nausea Saccharomyces Boulardii (Florastor) 250 mg PO DAILY [facility] Last Admin: 05/02/19 08:04 Dose: 250 mg Senna/Docusate Sodium (Senokot S) 2 tab PO BID PRN PRN Reason: Constipation Sodium Chloride (Flush - Normal Saline) 10 ml IVF Q12HR [facility] Last Admin: 05/02/19 08:11 Dose: Not Given Sodium Chloride (Flush - Normal Saline) 10 ml IVF PRN PRN PRN Reason: Saline Flush Warfarin Sodium (Coumadin) 5 mg PO 1700 [facility]
[2019-05-02] MEDS ORDERED: Warfarin Sodium 5 MG TAB PO SCH (17:00)
[2019-05-02] MEDS: Atorvastatin Calcium 20 MG TAB PO SCH (20:58)
[2019-05-02] MEDS: Vancomycin HCl 1 GM in Premix Bag 1 BAG IVPB SCH (20:58)
[2019-05-02] MEDS: Famotidine 20 MG TAB PO SCH (20:58)
[2019-05-02] MEDS: Gabapentin 300 MG CAP PO SCH (20:58)
[2019-05-02] MEDS: Insulin Glargine 30 UNITS in Pre-Filled Syringe 1 EACH SC SCH (20:59)
[2019-05-02] MEDS: Ondansetron PF 4 MG/2 ML Vial IVP PRN (21:02)
[2019-05-03] MEDS: cefTRIAXone\\ROCEPHIN 2 GM in Sodium Chloride 0.9% 100 ML IVPB SCH (00:37)
[2019-05-03] MEDS: Sodium Chloride 0.9% 1,000 ML IV SCH ×4 (02:09→23:43)
[2019-05-03 06:52] LABS: INR-International Normal Ratio 1.7; Prothrombin Time 19.6 SEC (12.0-14.7)
[2019-05-03] MEDS: Metoprolol Tartrate 25 MG TAB PO SCH ×2 (08:09→20:27)
[2019-05-03] MEDS: glipiZIDE 10 MG TAB PO SCH ×2 (08:09→14:29)
[2019-05-03] MEDS: Gabapentin 100 MG CAP PO SCH ×2 (08:10→14:29)
[2019-05-03] MEDS: Flecainide 50 MG TAB PO SCH ×2 (08:10→20:26)
[2019-05-03] MEDS: Saccharomyces boulardii 250 MG CAP PO SCH (08:10)
[2019-05-03] MEDS: Insulin Glargine 40 UNITS in Pre-Filled Syringe 1 EACH SC SCH (08:22)
[2019-05-03] MEDS: Warfarin Sodium 5 MG TAB PO SCH ×3 (08:46→14:29)
--- NOTE | 2019-05-03 17:14 | PDOC.PN ---
- Subjective Encounter Start Date: 05/03/19 Encounter Start Time: 14:00 Subjective: pt up in bed no complains - Objective Resuscitation Status - Order Detail: 04/25/19 19:39 Resuscitation Status Routine Resuscitation Status: FULL: Full Resuscitation Discussed with: Patient Vital Signs & Weight: Vital Signs (12 hours) Temp Pulse Resp BP Pulse Ox 05/03/19 07:25 97.6 F 66 18 144/75 H 94 L Weight Admit Weight 223 lb 6.4 oz Weight 223 lb 6.4 oz I&O: 05/02/19 05/03/19 05/04/19 06:59 06:59 06:59 Intake Total 1080 3880 Output Total 1999 Balance 1080 1880 Result Diagrams: 04/30/19 04:44 04/30/19 04:44 Additional Labs: Accuchecks 05/03/19 05/03/19 05/03/19 11:17 08:15 04:49 POC Glucose 156 H 81 68 L 05/02/19 20:03 POC Glucose 112 H Phys Exam - Physical Examination Neck: no nodes, no JVD, supple, full ROM Respiratory: no wheezing, no rales, no rhonchi, wheezing present, clear to auscultation bilateral Cardiovascular: RRR, no significant murmur, no rub, gallop, irregular Gastrointestinal: soft, non-tender, no distention, positive bowel sounds Musculoskeletal: no edema, pulses present, edema present Neurological: non-focal, normal sensation, moves all 4 limbs Dx/Plan (1) Acute renal failure superimposed on stage 3 chronic kidney disease Code(s): N17.9 - ACUTE KIDNEY FAILURE, UNSPECIFIED; N18.3 - CHRONIC KIDNEY DISEASE, STAGE 3 (MODERATE) Status: Acute Comment: improving with fluids.monitor. avoid nephrotoxins (2) Cellulitis of foot Code(s): L03.119 - CELLULITIS OF UNSPECIFIED PART OF LIMB Status: Acute Comment: on Zosyn and Vancomycin, renally adjusted (3) Diabetic foot ulcer Code(s): E11.621 - TYPE 2 DIABETES MELLITUS WITH FOOT ULCER; L97.509 - NON- PRESSURE CHRONIC ULCER OTH PRT UNSP FOOT W UNSP SEVERITY Status: Acute Qualifiers: Diabetic foot ulcer location: midfoot Laterality: right Comment: Xray negative for osteomyelitis but re admitted for same w failure of Augmentin (4) Anemia of chronic disease Code(s): D63.8 - ANEMIA IN OTHER CHRONIC DISEASES CLASSIFIED ELSEWHERE Status : Chronic - Plan medically stable -: pt wating on placement * . Review of Systems - Review of Systems Respiratory: negative: Cough, Dry, Shortness of Breath, Hemoptysis, SOB with Excertion, Pleuritic Pain, Sputum, Wheezing Cardiovascular: negative: chest pain, palpitations, orthopnea, paroxysmal nocturnal dyspnea, edema, light headedness, other Gastrointestinal: negative: Nausea, Vomiting, Abdominal Pain, Diarrhea, Constipation, Melena, Hematochezia, Other - Medications/Allergies Allergies/Adverse Reactions: Allergies Allergy/AdvReac Type Severity Reaction Status Date / Time No Known Allergies Allergy Verified 04/13/19 03:57 Medications: Current Medications Acetaminophen (Tylenol) 650 mg PO Q4H PRN PRN Reason: Headache/Fever/Mild Pain (1-3) Acetaminophen (Tylenol) 650 mg WA Q4H PRN PRN Reason: Headache/Fever/Mild Pain (1-3) Hydrocodone Bitart/Acetaminophen ([place] 5/325) 1 tab PO Q4H PRN PRN Reason: Moderate Pain (4-6) Last Admin: 04/29/19 08:24 Dose: 1 tab Hydrocodone Bitart/Acetaminophen ([place] 5/325) 2 tab PO Q4H PRN PRN Reason: Severe Pain (7-10) Last Admin: 04/30/19 00:25 Dose: 2 tab Atorvastatin Calcium (Lipitor) 20 mg PO [facility] Last Admin: 05/02/19 20:58 Dose: 20 mg Dextrose/Water (Dextrose 50%) 25 gm SLOW IVP PRN PRN PRN Reason: Hypoglycemia Diphenhydramine HCl (Benadryl) 25 mg PO DAILYPRN PRN PRN Reason: Allergies Diphenoxylate HCl/Atropine (Lomotil) 1 tab PO Q6H PRN PRN Reason: Diarrhea/Loose Stools Last Admin: 04/27/19 01:35 Dose: 1 tab Famotidine (Pepcid) 20 mg PO QPM [facility] Last Admin: 05/02/19 20:58 Dose: 20 mg Flecainide Acetate (Tambocor) 100 mg PO BID [facility] Last Admin: 05/03/19 08:10 Dose: 100 mg Gabapentin (Neurontin) 600 mg PO [facility] Last Admin: 05/02/19 20:58 Dose: 600 mg Gabapentin (Neurontin) 300 mg PO 0900,1500 [facility] Last Admin: 05/03/19 14:29 Dose: 300 mg Glipizide (Glucotrol) 10 mg PO BID-AC [facility] Last Admin: 05/03/19 14:29 Dose: 10 mg Glucagon (Glucagon) 1 mg IM PRN PRN PRN Reason: Hypoglycemia Guaifenesin/Dextromethorphan (Robitussin Dm) 15 ml PO Q4H PRN PRN Reason: Cough Hydralazine HCl (Apresoline) 10 mg SLOW IVP Q4H PRN PRN Reason: SBP Greater Than 170 Last Admin: 04/28/19 00:04 Dose: 10 mg Sodium Chloride (Normal Saline 0.9%) 1,000 mls @ 100 mls/hr IV .Q10H [facility] Last Admin: 05/03/19 14:30 Dose: 1,000 mls Dextrose/Water (D5w) 1,000 mls @ 0 mls/hr IV .Q0M PRN PRN Reason: Hypoglycemia Insulin Glargine 30 units/ (Miscellaneous Medication) 0.3 mls @ 0 mls/hr SC [facility] Last Admin: 05/02/19 20:59 Dose: Not Given Insulin Glargine 40 units/ (Miscellaneous Medication) 0.4 mls @ 0 mls/hr [facility] Last Admin: 05/03/19 08:22 Dose: Not Given Vancomycin HCl 1 gm/ Device 200 mls @ 200 mls/hr IVPB Q24HR [facility] Last Admin: 05/02/19 20:58 Dose: 200 mls Ceftriaxone Sodium 2 gm/ (Sodium Chloride) 100 mls @ 200 mls/hr IVPB Q24HR [facility] Last Admin: 05/03/19 00:37 Dose: 100 mls Insulin Human Lispro (Humalog) 0 units SC .MODERATE SLIDING SC PRN PRN Reason: Moderate Correctional Scale Last Admin: 05/01/19 16:33 Dose: 4 unit Insulin Human Lispro (Humalog) 0 units SC .BEDTIME SLIDING SC PRN PRN Reason: Bedtime Correctional Scale Loperamide HCl (Imodium) 2 mg PO PRN PRN PRN Reason: Diarrhea/Loose Stools Last Admin: 05/02/19 17:37 Dose: 2 mg Metoprolol Tartrate (Lopressor) 12.5 mg PO BID [facility] Last Admin: 05/03/19 08:09 Dose: 12.5 mg Miscellaneous Medication (Pharmacy To Dose) 1 each IVPB PRN PRN PRN Reason: Pharmacy to dose Ondansetron HCl (Zofran Odt) 4 mg PO Q6H PRN PRN Reason: Nausea/Vomiting Ondansetron HCl (Zofran) 4 mg IVP Q6H PRN PRN Reason: Nausea/Vomiting Last Admin: 05/02/19 21:02 Dose: 4 mg Prochlorperazine Maleate (Compazine) 10 mg PO Q6HR PRN PRN Reason: Nausea Last Admin: 05/03/19 00:34 Dose: 10 mg Saccharomyces Boulardii (Florastor) 250 mg PO DAILY [facility] Last Admin: 05/03/19 08:10 Dose: 250 mg Senna/Docusate Sodium (Senokot S) 2 tab PO BID PRN PRN Reason: Constipation Sodium Chloride (Flush - Normal Saline) 10 ml IVF Q12HR [facility] Last Admin: 05/03/19 08:10 Dose: Not Given Sodium Chloride (Flush - Normal Saline) 10 ml IVF PRN PRN PRN Reason: Saline Flush Warfarin Sodium (Coumadin) 5 mg PO 1700 [facility] Last Admin: 05/03/19 14:29 Dose: 5 mg
[2019-05-03] MEDS: HumaLOG 300 UNITS/3 ML VIAL SC PRN (17:45)
[2019-05-03] MEDS: Atorvastatin Calcium 20 MG TAB PO SCH (20:26)
[2019-05-03] MEDS: Gabapentin 300 MG CAP PO SCH (20:27)
[2019-05-03] MEDS: Famotidine 20 MG TAB PO SCH (20:27)
[2019-05-03] MEDS: Vancomycin HCl 1 GM in Premix Bag 1 BAG IVPB SCH (20:28)
[2019-05-03] MEDS: Insulin Glargine 30 UNITS in Pre-Filled Syringe 1 EACH SC SCH (20:28)
[2019-05-03] MEDS: Ondansetron PF 4 MG/2 ML Vial IVP PRN (22:05)
[2019-05-03 23:38] LABS: #Basophils 0.1 thou/uL (0.0-0.2); #Eosinphils 0.3 thou/uL (0.0-0.7); #Lymphocytes 1.3 thou/uL (1.20-3.40); #Monocytes 1.2 thou/uL (0.11-0.59); #Neutrophils 8.4 thou/uL (1.40-6.50); %Basophils 0.7 % (0.0-1.0); %Eosinophils 2.2 % (0.0-10.0); %Lymphocytes 11.6 % (21.0-51.0); %Monocytes 10.8 % (0.0-10.0); %Neutrophils 74.7 % (42.0-75.0); Mean Corpuscular HGB CONC 33.7 g/dL (32.0-36.0); Mean Corpuscular Hemoglobin 32.7 pg (27.0-31.0); Mean Corpuscular Volume 96.9 fL (78.0-98.0); Mean Platelet Volume 6.9 fL (7.4-10.4); Platelet Count 221 thou/uL (130-400); RBC Distribution Width 13.2 % (11.5-14.5); Red Blood Cell (RBC) Count 2.74 mill/uL (4.70-6.10); White Blood Cell (WBC) Count 11.2 thou/uL (4.8-10.8)
[2019-05-04] MEDS: cefTRIAXone\\ROCEPHIN 2 GM in Sodium Chloride 0.9% 100 ML IVPB SCH (01:27)
[2019-05-04 05:24] LABS: INR-International Normal Ratio 1.5; Prothrombin Time 18.2 SEC (12.0-14.7)
[2019-05-04 08:03] VITALS: BP 165/78; TEMP 97.6
[2019-05-04] MEDS: Gabapentin 100 MG CAP PO SCH (08:58)
[2019-05-04] MEDS: glipiZIDE 10 MG TAB PO SCH (08:59)
[2019-05-04] MEDS: Flecainide 50 MG TAB PO SCH (09:00)
[2019-05-04] MEDS: Insulin Glargine 40 UNITS in Pre-Filled Syringe 1 EACH SC SCH (09:03)
[2019-05-04] MEDS: Metoprolol Tartrate 25 MG TAB PO SCH (10:56)
[2019-05-04] MEDS: Saccharomyces boulardii 250 MG CAP PO SCH (10:58)
[2019-05-04] MEDS: HumaLOG 300 UNITS/3 ML VIAL SC PRN (12:00)
[2019-05-04] MEDS ORDERED: Cefepime 2 GM in Sodium Chloride 0.9% 100 ML IVPB SCH ×2 (13:00→21:00)
[2019-05-04 14:44] LABS: Anion Gap 13 mmol/L (10-20); BUN (Urea Nitrogen) 24 mg/dL (8.4-25.7); Calc. Creatinine Clearance 44 mL/min (70-130); Calcium 9.2 mg/dL (7.8-10.44); Carbon Dioxide 23 mmol/L (23-31); Chloride 105 mmol/L (98-107); Estimated GFR-MDRD 29; Glucose 148 mg/dL (80-115); Potassium 4.6 mmol/L (3.5-5.1); Sodium 136 mmol/L (136-145)
[2019-05-04] MEDS ORDERED: Warfarin Sodium 5 MG TAB PO SCH (17:00)
== END 2019-05-04 15:42 | disposition swing bed (61) | DRG 638 ==
LOC: ERS 11:47 → T4-A 17:45
PROVIDERS: ADMIT Internal Medicine; ATTEND Internal Medicine
DX: E11.621 Type 2 diabetes mellitus with foot ulcer (principal); L03.115 Cellulitis of right lower limb; C18.9 Malignant neoplasm of colon, unspecified; C78.00 Secondary malignant neoplasm of unspecified lung; C78.7 Secondary malignant neoplasm of liver and intrahepatic bile duct; E11.42 Type 2 diabetes mellitus with diabetic polyneuropathy; L97.519 Non-pressure chronic ulcer of other part of right foot with unspecified severity; E11.22 Type 2 diabetes mellitus with diabetic chronic kidney disease; N18.3 Chronic kidney disease, stage 3 (moderate); I12.9 Hypertensive chronic kidney disease with stage 1 through stage 4 chronic kidney disease, or unspecified chronic kidney disease; G25.81 Restless legs syndrome; E66.9 Obesity, unspecified; I48.2 Chronic atrial fibrillation; N17.9 Acute kidney failure, unspecified; D63.8 Anemia in other chronic diseases classified elsewhere; F41.9 Anxiety disorder, unspecified; F32.9 Major depressive disorder, single episode, unspecified; G47.33 Obstructive sleep apnea (adult) (pediatric); Z87.440 Personal history of urinary (tract) infections; Z79.01 Long term (current) use of anticoagulants; Z89.421 Acquired absence of other right toe(s); Z90.49 Acquired absence of other specified parts of digestive tract; Z79.4 Long term (current) use of insulin; Z79.899 Other long term (current) drug therapy; Z68.31 Body mass index [BMI] 31.0-31.9, adult
CPT/HCPCS: 36415; 36416; 80048; 80053; 80202; 82248; 82378; 83605; 83615; 84100; 84550; 85025; 85610; 85652; 86140; 87040; 87070; 87077; 87149; 87186; 87205; 96365; 96375; 97602; 99212; A4218; G0463; J0360; J0640; J0696; J1100; J1642; J1815; J2405; J2469; J2543; J3370; J3490; J7050; J9035; J9190; Q0164

== ENCOUNTER 2019-06-11 12:42 | Day surgery (SDC) | payer MEDICARE ==
[~2019-06-11 12:42] MED LIST changes: +DEXTROSE 5% IVPB SCH; +FLUOROURACIL IVPB SCH; +Leucovorin Calcium 50 MG in Dextrose 5% in Water 50 ML IVPB SCH; +Palonosetron HCl 0.25 MG in Dextrose 5% in Water 50 ML IVPB SCH; -Sodium Chloride 0.9% 15 ML NEB ONE; +WATER IVPB SCH
[2019-06-11 13:26] VITALS: BP 129/63; TEMP 97.5
== END 2019-06-11 15:02 | disposition home or self-care (01) ==
LOC: ONC/OP 12:42
PROVIDERS: ATTEND Internal Medicine Hematology & Oncology
DX: Z51.11 Encounter for antineoplastic chemotherapy (principal); C78.7 Secondary malignant neoplasm of liver and intrahepatic bile duct; C78.01 Secondary malignant neoplasm of right lung; C18.6 Malignant neoplasm of descending colon
CPT/HCPCS: 96367; 96375; 96413; J0640; J1100; J2469; J9190

== ENCOUNTER 2019-06-13 15:57 | Outpatient (CLI) | payer MEDICARE ==
[~2019-06-13 15:57] MED LIST changes: -DEXTROSE 5% IVPB SCH; -FLUOROURACIL IVPB SCH; -Leucovorin Calcium 50 MG in Dextrose 5% in Water 50 ML IVPB SCH; -Palonosetron HCl 0.25 MG in Dextrose 5% in Water 50 ML IVPB SCH; +Sodium Chloride 0.9% 15 ML NEB ONE; -WATER IVPB SCH
--- NOTE | 2019-06-13 16:58 | PRG ---
DATE OF SERVICE: 06/13/2019 HISTORY: Mr. Shemar King is a very pleasant 69-year-old gentleman, who presents to the [facility] for evaluation of an ulceration of the right lateral foot. The patient was previously seen in the Wound Center on 10/08/[address] Hoyt for multiple right foot ulcerations. The patient stated at the time of his visit to the Wound Center on 04/25/2019, that the ulceration over the right lateral foot now present was first noted approximately 1 month previously. He stated that the ulceration developed from ill-fitting shoes. Since the patient's visit on 04/25/2019, Mr. King has received IV antibiotics for osteomyelitis as per Dr. Reggie Box of Infectious Diseases. The patient received IV antibiotics at [facility]. The patient states that during his hospital stay, his wound was dressed with Santyl. The patient states he is now taking p.o. antibiotics as per Infectious Diseases. PHYSICAL EXAMINATION: VITAL SIGNS: Temperature 97.6, pulse 70, respirations 20, and blood pressure 128/60. Accu-Chek 178. EXTREMITIES: An ulceration of the right lateral forefoot is present, which measures approximately 1.5 x 1.0 cm. The tendon and bone are visible within the wound margins. No purulent drainage is associated with the wound. No cellulitis of the right foot is appreciated. No maceration of the skin of the periwound is noted. No significant edema of the right foot is present on exam today. Undermining associated with the wound was eliminated with an excisional full-thickness debridement with the use of scissors. ASSESSMENT AND PLAN: 1. 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 Arrangements will be made for the initiation of negative pressure therapy with dressing changes of the wound VAC 3 times per week with the assistance of Home Health. I will see Mr. King again in 2 weeks. At this time, transcutaneous oxygen mapping of the distal right lower extremity will be obtained. Arrangements will also be made for a followup appointment with Dr. Reggie Box of Infectious Diseases. I have explained to Mr. King and his consideration will need to be given to hyperbaric oxygen therapy if the dimensions of the ulceration failed to decrease in a timely manner. I have also explained to the patient and his that prior to a trial of hyperbaric oxygen therapy, a vascular evaluation will be obtained. I will also discuss the treatment plan with Dr. Huff prior to any trial of hyperbaric oxygen therapy. 2. Diabetes mellitus. The patient's Accu-Chek in clinic today is 178. The patient has been reminded that for optimal wound healing, his blood glucoses should remain below 150. 3. Hypertension. 4. Chronic kidney disease. 5. Colon carcinoma, recurrent. The patient is receiving chemotherapy under the direction of Dr. Huff. 6. Atrial fibrillation, status post ablation. 7. Obstructive sleep apnea. 8. Anemia. 9. Arthritis. Job ID: [id number]
== END 2019-06-13 15:58 | disposition home or self-care (01) ==
LOC: WCC 15:57
PROVIDERS: ATTEND Family Medicine
DX: E11.621 Type 2 diabetes mellitus with foot ulcer (principal); E11.42 Type 2 diabetes mellitus with diabetic polyneuropathy; L97.519 Non-pressure chronic ulcer of other part of right foot with unspecified severity; I12.9 Hypertensive chronic kidney disease with stage 1 through stage 4 chronic kidney disease, or unspecified chronic kidney disease; N18.9 Chronic kidney disease, unspecified; C18.9 Malignant neoplasm of colon, unspecified; I48.91 Unspecified atrial fibrillation; G47.33 Obstructive sleep apnea (adult) (pediatric); D63.1 Anemia in chronic kidney disease; M19.90 Unspecified osteoarthritis, unspecified site
CPT/HCPCS: A4218

== ENCOUNTER 2019-06-25 12:08 | Day surgery (SDC) | payer MEDICARE ==
[~2019-06-25 12:08] MED LIST changes: +Bevacizumab 400 MG, Bevacizumab 100 MG in Sodium Chloride 0.9% 80 ML IVPB SCH; +DEXAMETHASONE SOD PHOSPHATE IVPB SCH; +DEXTROSE 5% IVPB SCH; +FLUOROURACIL IVPB SCH; +Leucovorin Calcium 50 MG in Dextrose 5% in Water 50 ML IVPB SCH; +Palonosetron HCl 0.25 MG in Dextrose 5% in Water 50 ML IVPB SCH; -Sodium Chloride 0.9% 15 ML NEB ONE; +WATER IVPB SCH
[2019-06-25 12:42] VITALS: BP 119/58; TEMP 97.6
== END 2019-06-25 16:23 | disposition home or self-care (01) ==
LOC: ONC/OP 12:08
PROVIDERS: ATTEND Internal Medicine Hematology & Oncology
DX: Z51.11 Encounter for antineoplastic chemotherapy (principal); C18.6 Malignant neoplasm of descending colon; C78.7 Secondary malignant neoplasm of liver and intrahepatic bile duct; C78.01 Secondary malignant neoplasm of right lung
CPT/HCPCS: 36415; 80053; 82248; 82378; 83615; 84100; 84550; 96367; 96375; 96413; 96417; J0640; J1100; J2469; J3490; J9035; J9190

== ENCOUNTER 2019-07-05 15:08 | Outpatient (CLI) | payer MEDICARE ==
[~2019-07-05 15:08] MED LIST changes: -Bevacizumab 400 MG, Bevacizumab 100 MG in Sodium Chloride 0.9% 80 ML IVPB SCH; -DEXAMETHASONE SOD PHOSPHATE IVPB SCH; -DEXTROSE 5% IVPB SCH; -FLUOROURACIL IVPB SCH; -Leucovorin Calcium 50 MG in Dextrose 5% in Water 50 ML IVPB SCH; -Palonosetron HCl 0.25 MG in Dextrose 5% in Water 50 ML IVPB SCH; +Sodium Chloride 0.9% 15 ML NEB ONE; -WATER IVPB SCH
--- NOTE | 2019-07-05 17:15 | PRG ---
DATE OF SERVICE: 07/05/2019 HISTORY: Mr. Shemar King is a very pleasant 69-year-old gentleman, who presents to the Wound Center for evaluation of an ulceration of the right lateral foot. The patient stated at the time of his visit to the Wound Center on 04/25/2019, that the ulceration over the right lateral foot now present was first noted approximately 1 month previously. He stated that the ulceration developed from ill-fitting shoes. Mr. King has received IV antibiotics for osteomyelitis as per Dr. Reggie Box of Infectious Diseases. The patient received IV antibiotics at [facility]. The patient stated that during his hospital stay, his wound was dressed with Santyl. Subsequent to the course of IV antibiotics as per Infectious Diseases, the patient was placed on p.o. antibiotics as per Dr. Box. Since the patient's visit on 06/13/2019, negative pressure therapy has been initiated, and Mr. King is receiving dressing changes of the wound VAC 3 times per week with the assistance of Home Health. PHYSICAL EXAMINATION: VITAL SIGNS: Temperature 97.9, pulse 69, respirations 20, blood pressure 127/59. Accu-Chek 106. EXTREMITIES: An ulceration of the right lateral forefoot is present, which measures approximately 2.3 x 2.0 cm. Again, bone and tendon are visible within the wound margins. Nonviable tissue present within the wound margins was debrided with an excisional full-thickness debridement. No purulent drainage is associated with the wound. No maceration of the skin of the periwound is noted. No significant edema of the right foot is present on exam today. ASSESSMENT AND PLAN: 1. 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 Negative pressure therapy will be continued with dressing changes of the wound VAC 3 times per week with the assistance of Home Health. Transcutaneous oxygen mapping of the distal right lower extremity will be obtained in 4 days. Arrangements have been made for a followup appointment with Dr. Reggie Box of Infectious Diseases. Today, the patient agrees to a trial of hyperbaric oxygen therapy. I will also discuss the treatment plan with Dr. Huff prior to any trial of hyperbaric oxygen therapy. 2. Diabetes mellitus. The patient's Accu-Chek in clinic today is 106. The patient has been reminded that for optimal wound healing, his blood glucoses should remain below 150. 3. Hypertension. 4. Chronic kidney disease. 5. Colon carcinoma, recurrent. The patient is receiving chemotherapy under the direction of Dr. Huff. 6. Atrial fibrillation, status post ablation. 7. Obstructive sleep apnea. 8. Anemia. 9. Arthritis. Job ID: [id number]
== END 2019-07-05 15:09 | disposition home or self-care (01) ==
LOC: WCC 15:08
PROVIDERS: ATTEND Family Medicine
DX: E11.621 Type 2 diabetes mellitus with foot ulcer (principal); L97.419 Non-pressure chronic ulcer of right heel and midfoot with unspecified severity; E11.40 Type 2 diabetes mellitus with diabetic neuropathy, unspecified; I12.9 Hypertensive chronic kidney disease with stage 1 through stage 4 chronic kidney disease, or unspecified chronic kidney disease; N18.9 Chronic kidney disease, unspecified; G47.33 Obstructive sleep apnea (adult) (pediatric); D64.9 Anemia, unspecified; M19.90 Unspecified osteoarthritis, unspecified site; C18.9 Malignant neoplasm of colon, unspecified
CPT/HCPCS: 11042; A4218

== ENCOUNTER 2019-07-09 11:51 | Day surgery (SDC) | payer MEDICARE ==
[~2019-07-09 11:51] MED LIST changes: +Bevacizumab 400 MG, Bevacizumab 100 MG in Sodium Chloride 0.9% 80 ML IVPB SCH; +DEXAMETHASONE SOD PHOSPHATE IVPB SCH; +DEXTROSE 5% IVPB SCH; +FLUOROURACIL IVPB SCH; +Leucovorin Calcium 50 MG in Dextrose 5% in Water 50 ML IVPB SCH; +Palonosetron HCl 0.25 MG in Dextrose 5% in Water 50 ML IVPB SCH; +Palonosetron HCl 0.25 MG in Sodium Chloride 0.9% 50 ML IVPB SCH; -Sodium Chloride 0.9% 15 ML NEB ONE; +WATER IVPB SCH
[2019-07-09] MEDS ORDERED: Sodium Chloride 0.9% 20 ML ONE (11:54)
[2019-07-09 12:46] VITALS: BP 135/62; TEMP 97.7
== END 2019-07-09 14:14 | disposition home or self-care (01) ==
LOC: ONC/OP 11:51
PROVIDERS: ATTEND Internal Medicine Hematology & Oncology
DX: Z51.11 Encounter for antineoplastic chemotherapy (principal); C78.7 Secondary malignant neoplasm of liver and intrahepatic bile duct; C18.6 Malignant neoplasm of descending colon; C78.01 Secondary malignant neoplasm of right lung
CPT/HCPCS: 36415; 80053; 82248; 82378; 83615; 84100; 84550; 96366; 96375; 96413; 96416; 96417; J0640; J1100; J2469; J3490; J9035; J9190

== ENCOUNTER 2019-07-09 14:56 | Outpatient (CLI) | payer MEDICARE ==
--- NOTE | 2019-07-10 18:55 | TCOM ---
DATE OF STUDY: 07/09/2019 NAME OF STUDY: Transcutaneous oximetry assessment. CLINICAL INFORMATION: Mr. Shemar King is a 69-year-old gentleman with a past medical history significant for diabetes mellitus, hypertension, chronic kidney disease, obstructive sleep apnea, atrial fibrillation, and recurrent colon carcinoma. The patient has an ulceration of the right lateral forefoot. The patient has received IV antibiotics for osteomyelitis of the fifth metatarsal head and proximal phalanx of the little toe. He is undergoing transcutaneous oxygen mapping of the distal right lower extremity to determine his need and suitability for treatment with hyperbaric oxygen. IMPRESSION: The chest reference value is depressed consistent with a central oxygenation deficiency. The periwound transcutaneous oxygen value reflects hypoxia under ambient conditions. The response of all values to hyperoxic challenge is consistent with moderate regional ischemia. The above study suggests a trial of hyperbaric oxygen therapy may be warranted in order to augment the healing of the right lateral forefoot ulceration. Job ID: [id number]
== END 2019-07-09 14:57 | disposition home or self-care (01) ==
LOC: WCC 14:56
PROVIDERS: ATTEND Family Medicine
DX: E11.621 Type 2 diabetes mellitus with foot ulcer (principal); L97.519 Non-pressure chronic ulcer of other part of right foot with unspecified severity; E11.40 Type 2 diabetes mellitus with diabetic neuropathy, unspecified
CPT/HCPCS: 93923

== ENCOUNTER 2019-07-11 17:34 | Inpatient (IN) | payer MEDICARE ==
[2019-07-11 18:09] LABS: #Eosinphils 0.2 thou/uL (0.0-0.7); #Monocytes 0.4 thou/uL (0.11-0.59); #Neutrophils 9.5 thou/uL (1.40-6.50); %Basophils 0.1 % (0.0-1.0); %Eosinophils 2.2 % (0.0-10.0); %Lymphocytes 9.3 % (21.0-51.0); %Monocytes 3.6 % (0.0-10.0); %Neutrophils 84.8 % (42.0-75.0); Hemoglobin 9.7 g/dL (14.0-18.0); Mean Corpuscular HGB CONC 35.2 g/dL (32.0-36.0); Mean Corpuscular Hemoglobin 31.1 pg (27.0-31.0); Mean Corpuscular Volume 88.1 fL (78.0-98.0); Mean Platelet Volume 7.1 fL (7.4-10.4); Platelet Count 233 thou/uL (130-400); RBC Distribution Width 14.8 % (11.5-14.5); Red Blood Cell (RBC) Count 3.13 mill/uL (4.70-6.10); White Blood Cell (WBC) Count 11.2 thou/uL (4.8-10.8)
[2019-07-11 18:16] LABS: PTT 68.8 SEC (22.9-36.1)
[2019-07-11 18:17] LABS: Prothrombin Time 87.6 SEC (12.0-14.7)
[2019-07-11 18:18] LABS: INR-International Normal Ratio 11.5
--- NOTE | 2019-07-11 18:31 | RAD ---
RADIOGRAPH CHEST 1 VIEW: DATE: 07/11/2019 HISTORY: 69-year-old male with dyspnea FINDINGS: Lung volumes are low. Right subclavian implantable vascular access port distal tip at SVC. There is n o airspace density, pulmonary edema, or pneumothorax. The lateral costophrenic angles are not effaced. IMPRESSION: No acute pulmonary findings.
[2019-07-11 18:35] LABS: ALT (SGPT) 31 U/L (8-55); AST (SGOT) 30 U/L (5-34); Albumin 3.8 g/dL (3.4-4.8); Alkaline Phosphatase 96 U/L (40-150); Anion Gap 18 mmol/L (10-20); BUN (Urea Nitrogen) 32 mg/dL (8.4-25.7); Bilirubin, Total 0.3 mg/dL (0.2-1.2); CK (CPK) 62 U/L (30-200); Calc. Creatinine Clearance 0 mL/min (70-130); Calcium 9.1 mg/dL (7.8-10.44); Carbon Dioxide 20 mmol/L (23-31); Chloride 97 mmol/L (98-107); Estimated GFR-MDRD 33; Globulin 3.6 g/dL (2.4-3.5); Glucose 185 mg/dL (83-110); Lipase 16 U/L (8-78); Potassium 4.8 mmol/L (3.5-5.1); Protein, Total 7.4 g/dL (5.8-8.1); Sodium 130 mmol/L (136-145)
[2019-07-11] MEDS ORDERED: Phytonadione 10 MG/ML AMP ONE (18:35)
[2019-07-11] MEDS ORDERED: Ondansetron ODT 4 MG TAB ONE (19:37)
[2019-07-11] MEDS ORDERED: Acetaminophen 500 MG TAB ONE (20:07)
[2019-07-11] MEDS ORDERED: Ondansetron ODT 4 MG TAB SL PRN (22:24)
[2019-07-11] MEDS ORDERED: Sodium Chloride 0.9% 1,000 ML IV SCH (22:24)
[2019-07-11] MEDS ORDERED: Ondansetron PF 4 MG/2 ML Vial IVP PRN (22:24)
[2019-07-11] MEDS ORDERED: Cefepime 2 GM in Sodium Chloride 0.9% 100 ML IVPB SCH (23:00)
[2019-07-11] MEDS: Prochlorperazine Maleate 5 MG TAB PO PRN (23:05)
[2019-07-11 23:11] LABS: Bilirubin Negative (Negative); Blood, Urine 1+ (Negative); Clarity Clear (Clear); Glucose, Urine (Dipstick) 500 mg/dL (Negative); Leukocyte 500 Leu/uL (Negative); Nitrite Negative (Negative); Protein, Urine (Dipstick) 30 mg/dL (Neg-Trace); RBC/HPF 0-3 HPF (0-3); Renal Epithelial 0-3 HPF (None Seen); Squamous Epithelial 0-3 HPF (0-3); Urobilinogen Normal mg/dL (Less than 2); WBC/HPF Greater than 50 HPF (0-3)
[2019-07-11 23:17] LABS: Bacteria/HPF 1+ HPF (None Seen); Yeast-Budding 3+ HPF (None Seen)
[2019-07-12 05:06] LABS: #Eosinphils 0.2 thou/uL (0.0-0.7); #Lymphocytes 1.2 thou/uL (1.20-3.40); #Monocytes 0.5 thou/uL (0.11-0.59); #Neutrophils 6.7 thou/uL (1.40-6.50); %Basophils 0.2 % (0.0-1.0); %Lymphocytes 13.9 % (21.0-51.0); %Monocytes 5.4 % (0.0-10.0); %Neutrophils 78.5 % (42.0-75.0); Hemoglobin 9.4 g/dL (14.0-18.0); Mean Corpuscular HGB CONC 34.2 g/dL (32.0-36.0); Mean Corpuscular Volume 87.5 fL (78.0-98.0); Platelet Count 204 thou/uL (130-400); RBC Distribution Width 14.9 % (11.5-14.5); Red Blood Cell (RBC) Count 3.13 mill/uL (4.70-6.10); White Blood Cell (WBC) Count 8.5 thou/uL (4.8-10.8)
[2019-07-12 05:09] LABS: INR-International Normal Ratio 1.8; Prothrombin Time 20.6 SEC (12.0-14.7)
[2019-07-12 05:20] LABS: Anion Gap 11 mmol/L (10-20); BUN (Urea Nitrogen) 28 mg/dL (8.4-25.7); Calc. Creatinine Clearance 62 mL/min (70-130); Calcium 8.3 mg/dL (7.8-10.44); Carbon Dioxide 23 mmol/L (23-31); Chloride 103 mmol/L (98-107); Estimated GFR-MDRD 43; Glucose 119 mg/dL (83-110); Potassium 4.3 mmol/L (3.5-5.1); Sodium 133 mmol/L (136-145)
[2019-07-12] MEDS ORDERED: Calcium Carbonate 500 MG ChewTAB PO PRN (07:29)
[2019-07-12] MEDS ORDERED: HYDROcodone/Acetaminophen 5/325 mg Tablet PO PRN (07:29)
[2019-07-12] MEDS ORDERED: Acetaminophen 325 MG TAB PO PRN (07:29)
[2019-07-12] MEDS ORDERED: Senokot S 8.6-50 MG TAB PO PRN (07:29)
[2019-07-12] MEDS ORDERED: Ondansetron ODT 4 MG TAB PO PRN (07:29)
[2019-07-12] MEDS ORDERED: Dextrose 5% in Water 1,000 ML IV PRN (07:31)
[2019-07-12] MEDS ORDERED: Dextrose 50% Abboject 50 ML SYRINGE SLOW IVP PRN (07:31)
[2019-07-12] MEDS ORDERED: Benzonatate 100 MG CAP PO PRN (07:39)
[2019-07-12] MEDS ORDERED: hydrALAZINE 20 MG/ML VIAL SLOW IVP PRN (07:39)
[2019-07-12] MEDS ORDERED: diphenhydrAMINE 25 MG CAP PO PRN (07:39)
[2019-07-12] MEDS ORDERED: Docusate 100 MG CAP PO PRN (07:39)
[2019-07-12] MEDS ORDERED: Vancomycin HCl 1 GM in Premix Bag 1 BAG IVPB SCH ×2 (08:00→09:00)
[2019-07-12] MEDS: Flecainide 50 MG TAB PO SCH ×2 (08:16→20:08)
[2019-07-12] MEDS: Ondansetron PF 4 MG/2 ML Vial IVP PRN (08:16)
[2019-07-12] MEDS: Famotidine 20 MG TAB PO SCH (08:17)
[2019-07-12] MEDS: Metoprolol Tartrate 25 MG TAB PO SCH ×2 (08:17→20:09)
[2019-07-12] MEDS: Amlodipine 5 MG TAB PO SCH (08:17)
[2019-07-12] MEDS: Gabapentin 100 MG CAP PO SCH ×2 (08:18→15:19)
[2019-07-12] MEDS: Insulin Glargine 40 UNITS in Pre-Filled Syringe 1 EACH SC SCH (08:44)
[2019-07-12] MEDS: Cefepime 2 GM in Sodium Chloride 0.9% 100 ML IVPB SCH ×2 (08:52→21:14)
[2019-07-12] MEDS ORDERED: FLECAINIDE ACETATE 100 MG PO SCH (09:00)
[2019-07-12] MEDS ORDERED: Gabapentin 100 MG CAP PO SCH (09:00)
[2019-07-12] MEDS ORDERED: Loperamide HCl 2 MG CAP PO PRN (11:07)
[2019-07-12] MEDS ORDERED: Diphenoxylate HCl/Atropine Tablet PO PRN (11:07)
--- NOTE | 2019-07-12 11:56 | CON ---
DATE OF CONSULTATION: REASON FOR CONSULT: Colon cancer. HISTORY OF PRESENT ILLNESS: Mr. King is a 69-year-old gentleman, who is on FOLFOX and Avastin without oxaliplatin for metastatic colon cancer. He received his last treatment this week, Tuesday through Tuesday. He was seen by Dr. Huff yesterday. He has been dealing with a diabetic foot ulcer and osteomyelitis. Chemotherapy was held for six weeks, it was resumed on June 11. He was also [facility] for atrial fibrillation and flutter. They called him last night and instructed him to go to the ER with an INR of 1.8. He also had a fever of 102. He has a history of in and out catheterization. Urine showed 1+ bacteria with positive leukocyte esterase. He has been started on antibiotics. He was given a dose of vitamin K. his INR has improved to 1.8 today. The patient complains of diarrhea and intermittent nausea. Denies shortness of breath or chest pain. No rash. No bleeding. PAST MEDICAL HISTORY: 1. Metastatic adenocarcinoma of the colon. 2. Right lower extremity osteomyelitis with wound VAC. 3. Type 2 diabetes. 4. Hypertension. 5. Atrial fibrillation/flutter. 6. Dyslipidemia. 7. Arthritis. 8. Anxiety and depression. 9. Obstructive sleep apnea. 10. Diverticulitis. 11. Bladder dysfunction requiring self catheterization. PAST SURGICAL HISTORY: 1. Colon resection. 2. Liver resection. 3. MediPort placement. 4. Cardiac ablation. 5. Amputation of his right fourth digit. 6. Liver biopsy. ALLERGIES: NO KNOWN DRUG ALLERGIES. HOME MEDICATIONS: 1. Coumadin 5 mg one and half tablets daily. 2. Neurontin. 3. Norvasc. 4. Lipitor. 5. Vibramycin. 6. Flecainide. 7. Insulin. 8. Metoprolol tartrate. FAMILY HISTORY: Noncontributory. SOCIAL HISTORY: He is , lives with his spouse. No alcohol, tobacco, or illicit drug use. REVIEW OF SYSTEMS: A 10-point review of systems is negative except for noted in HPI. PHYSICAL EXAMINATION: VITAL SIGNS: Temperature is 99.4, pulse is 114, respiratory rate 18, and BP is 169/85. He is 98% on room air. GENERAL: Well-developed, well-nourished male, in no acute distress. HEENT: Normocephalic and atraumatic. Pupils are equal and reactive to light. NECK: Supple. CV: Regular rate and rhythm. LUNGS: Clear. ABDOMEN: Obese and nontender. Bowel sounds are positive. EXTREMITIES: No clubbing or cyanosis. He has a wound on his right lower extremity with wound VAC in place. SKIN: No rash. HEMATOLOGIC: No petechiae or purpura. NEUROLOGIC: Nonfocal. PSYCH: He is alert, oriented, and appropriate. PERTINENT LABS AND X-RAYS: Current WBCs are 8.5, hemoglobin 9.4, hematocrit 27.4, platelet counts 204,000, 78% neutrophils, and 14% lymphocytes. PT is 20.6 and INR is 1.8. Sodium is 133, potassium is 4.3, chloride is 103, CO2 is 23, BUN is 28, creatinine is 1.61, lactic acid is 1.8, calcium is 8.3, bilirubin is 0.3, AST is 30, ALT is 31, and alkaline phosphatase is 96. Creatine kinase is 62 and BNP is 59. Serum total protein is 7.4, albumin is 3.8, globulin is 3.6, and lipase is 13. Chest x-ray showed no acute process. ASSESSMENT: 1. Supratherapeutic INR. 2. Stage 4 metastatic colon cancer. 3. Right lower extremity osteomyelitis. 4. Possible urinary tract infection. DISCUSSION: The patient has been given vitamin K with resolution of his supratherapeutic INR. He will resume Coumadin today, to be managed by the hospitalist. The patient's chemo was completed yesterday. He has not had any issues with neutropenia throughout treatments. So, I do not expect him to become neutropenic on this hospitalization. I would continue his Lomotil and Imodium for diarrhea. Continue antiemetics as needed. He can be discharged home at the discretion of the hospitalist. Discussed with Dr. Durbin. Thank you for the consult. Will sign-off. Call if needed. Job ID: [id number] [facility]
--- NOTE | 2019-07-12 16:04 | PDOC.HHP ---
Hospitalist HPI - History of Present Illness Fever and elevated INR History of Present Illness: 69 year old gentleman with PMHx of advanced metastatic colon CA with stage 4 disease on chemotherapy, IDDM - uncontrolled, HTN, HLD, and atrial fibrillation on Coumadin presents with fever and abnormal labs. Patient with recent osteomyelitis who was on IV ABX and holding chemotherapy was just recently started on chemo again last week. Patient also had lab draw with INR at 11 and was told to go to the hospital. No bleeding per patient and denies any black or blood in stool. Patient recieved vitamin K in the emergency department and INR decreased to 1.8 this morning. Patient normally takes Coumadin 7.5mg on Tuesday and and 5mg on every other day. With fever, tachycardia, and elevated WBC count on admission diagnosed with sepsis. Abnormal urine analysis with symptoms points towards UTI. Though with patients recent osteomyelitis we will consult ID for further recommendations. Oncology consultation requested. Admitted to medical oncology unit for further evaluation and treatment. Hospitalist ROS - Review of Systems All other systems reviewed; all pertinent +/- noted in HPI/Subj - Medication Medications: Active Medications Generic Name Dose Route Start Last Admin Trade Name Freq PRN Reason Stop Dose Admin Amlodipine Besylate 5 mg 07/12/19 09:00 07/12/19 08:17 Norvasc PO 5 mg DAILY ANDREA Administration Famotidine 20 mg 07/12/19 09:00 07/12/19 08:17 Pepcid PO 20 mg DAILY ANDREA Administration Flecainide Acetate 100 mg 07/12/19 09:00 07/12/19 08:16 Tambocor PO 100 mg BID ANDREA Administration Gabapentin 100 mg 07/12/19 09:00 07/12/19 15:19 Neurontin PO 100 mg 0900,1500 ANDREA Administration Cefepime HCl 2 gm/ Sodium 100 mls @ 200 mls/hr 07/12/19 09:00 07/12/19 08:52 Chloride IVPB 100 mls Q12HR ANDREA Administration Insulin Glargine 40 units/ 0.4 mls @ 0 mls/hr 07/12/19 09:00 07/12/19 08:44 Miscellaneous Medication SC 0.4 mls DAILY ANDREA Administration Metoprolol Tartrate 12.5 mg 07/12/19 09:00 07/12/19 08:17 Lopressor PO 12.5 mg BID ANDREA Administration Ondansetron HCl 4 mg 07/12/19 07:29 07/12/19 08:16 Zofran IVP 4 mg Q6H PRN Administration Nausea/Vomiting Prochlorperazine Maleate 5 mg 07/11/19 22:46 07/11/19 23:05 Compazine PO 5 mg Q6H PRN Administration Nausea/Vomiting Sodium Chloride 10 ml 07/12/19 09:00 07/12/19 08:17 Flush - Normal Saline IVF 10 ml Q12HR ANDREA Administration Hospitalist History - Past Medical History Source: patient Cardiac: reports: AFIB, CAD, HTN, Hyperlipidemia Pulmonary: reports: high cholesterol, 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 denies: Sickle cell disease Hepatobiliary: denies: Hep A/B/C Psych: denies: Psychosis, Schizophrenia Musculoskeletal: reports: Osteoarthritis Endocrine: reports: Diabetes - Past Surgical History Past Surgical History: reports: Other (Ablation, mediport, liver biopsy) - Family History Family History: reports: diabetes mellitus, hyperlipidemia, hypertension - Social History Smoking Status: Never smoker Alcohol: reports: None Drugs: reports: none Living Situation: With Family Other Social History: Patient wishes to be full code - Exam General Appearance: NAD, awake alert Eye: anicteric sclera ENT: normocephalic atraumatic, no oropharyngeal lesions, moist mucosa Neck: supple, symmetric, no lymphadenopathy Heart: no murmur, no gallops, no rubs, irregular Respiratory: CTAB, no wheezes, no rales, no ronchi Gastrointestinal: soft, non-tender, non-distended, no guarding, no rigidity Extremities: 1+ LE edema Skin: no rashes Neurological: cranial nerve grossly intact, normal sensation to touch, no new deficit Musculoskeletal: generalized weakness Psychiatric: normal affect, A&O x 3 Hospitalist Results - Labs Result Diagrams: 07/12/19 04:50 07/12/19 04:50 Lab results: WBC 8.5 thou/uL (4.8-10.8) 07/12/19 04:50 Hgb 9.4 g/dL (14.0-18.0) L 07/12/19 04:50 Hct 27.4 % (42.0-52.0) L 07/12/19 04:50 MCV 87.5 fL (78.0-98.0) 07/12/19 04:50 Plt Count 204 thou/uL (130-400) 07/12/19 04:50 Neutrophils % 78.5 % (42.0-75.0) H 07/12/19 04:50 Sodium 133 mmol/L (136-145) L 07/12/19 04:50 Potassium 4.3 mmol/L (3.5-5.1) 07/12/19 04:50 Chloride 103 mmol/L (98-107) 07/12/19 04:50 Carbon Dioxide 23 mmol/L (23-31) 07/12/19 04:50 BUN 28 mg/dL (8.4-25.7) H 07/12/19 04:50 Creatinine 1.61 mg/dL (0.7-1.3) H 07/12/19 04:50 Glucose 119 mg/dL (83-110) H 07/12/19 04:50 Lactic Acid 1.8 mmol/L (0.5-2.2) 07/11/19 20:14 Calcium 8.3 mg/dL (7.8-10.44) 07/12/19 04:50 Total Bilirubin 0.3 mg/dL (0.2-1.2) 07/11/19 18:00 AST 30 U/L (5-34) 07/11/19 18:00 ALT 31 U/L (8-55) 07/11/19 18:00 Alkaline Phosphatase 96 U/L (40-150) 07/11/19 18:00 Creatine Kinase 62 U/L (30-200) 07/11/19 18:00 Troponin I Less than 0.010 ng/mL (< 0.028) 07/11/19 18:00 B-Natriuretic Peptide 59.7 pg/mL (0-100) 07/11/19 18:00 Serum Total Protein 7.4 g/dL (5.8-8.1) 07/11/19 18:00 Albumin 3.8 g/dL (3.4-4.8) 07/11/19 18:00 Lipase 16 U/L (8-78) 07/11/19 18:00 Urine Ketones Negative mg/dL (Negative) 07/11/19 21:45 Urine Blood 1+ (Negative) A 07/11/19 21:45 Urine Nitrite Negative (Negative) 07/11/19 21:45 Ur Leukocyte Esterase 500 Flavio/uL (Negative) A 07/11/19 21:45 Urine RBC 0-3 HPF (0-3) 07/11/19 21:45 Urine WBC Greater than 50 HPF (0-3) A 07/11/19 21:45 Ur Squamous Epith Cells 0-3 HPF (0-3) 07/11/19 21:45 Urine Bacteria 1+ HPF (None Seen) 07/11/19 21:45 - Radiology Interpretation Chest x-ray Status: image reviewed by me Hospitalist H&P A/P - Problem (1) UTI (urinary tract infection) Status: Resolved (2) Sepsis Code(s): A41.9 - SEPSIS, UNSPECIFIED ORGANISM Status: Resolved (3) H/O malignant neoplasm of colon Code(s): Z85.038 - PERSONAL HISTORY OF MALIGNANT NEOPLASM OF LARGE INTESTINE Status: Chronic (4) Atrial fibrillation Code(s): I48.91 - UNSPECIFIED ATRIAL FIBRILLATION Status: Chronic Qualifiers: (5) CKD (chronic kidney disease) stage 3, GFR 30-59 ml/min Code(s): N18.3 - CHRONIC KIDNEY DISEASE, STAGE 3 (MODERATE) Status: Chronic (6) Chronic anticoagulation Code(s): Z79.01 - HALF-WAY (CURRENT) USE OF ANTICOAGULANTS Status: Chronic (7) Diabetes mellitus type 2, insulin dependent Code(s): E11.9 - TYPE 2 DIABETES MELLITUS WITHOUT COMPLICATIONS; Z79.4 - SKIDDER (CURRENT) USE OF INSULIN Status: Chronic (8) Diabetes type 2, uncontrolled Code(s): E11.65 - TYPE 2 DIABETES MELLITUS WITH HYPERGLYCEMIA Status: Chronic (9) Diabetic foot ulcer Code(s): E11.621 - TYPE 2 DIABETES MELLITUS WITH FOOT ULCER; L97.509 - NON- PRESSURE CHRONIC ULCER OTH PRT UNSP FOOT W UNSP SEVERITY Status: Chronic Qualifiers: Diabetic foot ulcer location: midfoot Laterality: right (10) Hypertension Code(s): I10 - ESSENTIAL (PRIMARY) HYPERTENSION Status: Chronic Qualifiers: (11) ESE (obstructive sleep apnea) Code(s): G47.33 - OBSTRUCTIVE SLEEP APNEA (ADULT) (PEDIATRIC) Status: Chronic (12) Obesity (BMI 30-39.9) Code(s): E66.9 - OBESITY, UNSPECIFIED Status: Chronic (13) Cellulitis of foot Code(s): L03.119 - CELLULITIS OF UNSPECIFIED PART OF LIMB Status: Resolved - Plan Plan: Plan: Admit to Medical/ oncology Oncology consultation, recommendations appreciated ID consultation, recommendations appreciated Broad spectrum antibiotics, de escalate to culture and sensitivity as able Blood Cx Urine Cx Consider imaging LE to see if osteomyelitis has resolved, defer to ID INR was corrected with Vit k, will restart coumadin Coumadin 7.5mg Tuesday and Coumadin 5mg Tuesday, Tuesday, Tuesday, Tuesday, Tuesday Long and short acting insulin for glucose control 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
[2019-07-12] MEDS ORDERED: Warfarin Sodium 2.5 MG TAB PO SCH (17:00)
[2019-07-12] MEDS: Warfarin Sodium 5 MG TAB PO SCH (17:44)
[2019-07-12] MEDS: HYDROcodone/Acetaminophen 7.5/325 mg Tablet PO PRN ×2 (17:52→21:45)
[2019-07-12] MEDS: Vancomycin HCl 1 GM in Premix Bag 1 BAG IVPB SCH (20:03)
[2019-07-12] MEDS: Atorvastatin Calcium 20 MG TAB PO SCH (20:07)
[2019-07-12] MEDS: Gabapentin 300 MG CAP PO SCH (20:08)
[2019-07-12] MEDS ORDERED: Non-Formulary Item 1 EACH (Gabapentin [Gabapentin] 600 MG) PO SCH (21:00)
[2019-07-12] MEDS: Insulin Glargine 20 UNITS in Pre-Filled Syringe 1 EACH SC SCH (21:14)
[2019-07-13 05:32] LABS: #Eosinphils 0.3 thou/uL (0.0-0.7); #Lymphocytes 1.3 thou/uL (1.20-3.40); #Monocytes 0.4 thou/uL (0.11-0.59); #Neutrophils 4.4 thou/uL (1.40-6.50); %Basophils 0.5 % (0.0-1.0); %Eosinophils 4.9 % (0.0-10.0); %Lymphocytes 19.4 % (21.0-51.0); %Monocytes 6.8 % (0.0-10.0); %Neutrophils 68.4 % (42.0-75.0); Hemoglobin 8.7 g/dL (14.0-18.0); Mean Corpuscular HGB CONC 33.6 g/dL (32.0-36.0); Mean Corpuscular Hemoglobin 29.5 pg (27.0-31.0); Mean Corpuscular Volume 87.8 fL (78.0-98.0); Mean Platelet Volume 6.9 fL (7.4-10.4); Platelet Count 172 thou/uL (130-400); RBC Distribution Width 14.8 % (11.5-14.5); Red Blood Cell (RBC) Count 2.94 mill/uL (4.70-6.10); White Blood Cell (WBC) Count 6.5 thou/uL (4.8-10.8)
[2019-07-13 05:34] LABS: INR-International Normal Ratio 1.3; Prothrombin Time 16.3 SEC (12.0-14.7)
[2019-07-13 05:50] LABS: Anion Gap 9 mmol/L (10-20); BUN (Urea Nitrogen) 21 mg/dL (8.4-25.7); Calc. Creatinine Clearance 69 mL/min (70-130); Calcium 8.2 mg/dL (7.8-10.44); Carbon Dioxide 24 mmol/L (23-31); Chloride 101 mmol/L (98-107); Estimated GFR-MDRD 49; Glucose 118 mg/dL (83-110); Potassium 4.1 mmol/L (3.5-5.1); Sodium 130 mmol/L (136-145)
[2019-07-13 08:01] LABS: Vancomycin, Trough 19.2 ug/mL
[2019-07-13] MEDS: Famotidine 20 MG TAB PO SCH (08:21)
[2019-07-13] MEDS: Gabapentin 100 MG CAP PO SCH ×2 (08:21→16:49)
[2019-07-13] MEDS: Flecainide 50 MG TAB PO SCH ×2 (08:21→21:00)
[2019-07-13] MEDS: Amlodipine 5 MG TAB PO SCH (08:21)
[2019-07-13] MEDS: Metoprolol Tartrate 25 MG TAB PO SCH ×2 (08:21→21:00)
[2019-07-13] MEDS: Vancomycin HCl 1 GM in Premix Bag 1 BAG IVPB SCH ×2 (08:23→20:59)
[2019-07-13] MEDS: Cefepime 2 GM in Sodium Chloride 0.9% 100 ML IVPB SCH ×2 (09:23→22:10)
[2019-07-13] MEDS: Insulin Glargine 40 UNITS in Pre-Filled Syringe 1 EACH SC SCH (09:23)
--- NOTE | 2019-07-13 13:36 | PDOC.HOSPP ---
- Subjective Subjective: Seen and examined. Blood cultures noted. Breathing well. Denies pain. States he has been off antibiotics for roughly one month. Since then he has been started on chemotherapy and now with fever on admission. Afebrile since initiation of antibiotics. - Objective Vital Signs & Weight: Vital Signs (12 hours) Temp Pulse Resp BP Pulse Ox 07/13/19 11:59 89 18 114/56 L 07/13/19 08:21 74 07/13/19 08:00 98.4 F 72 18 164/72 H 100 Weight Admit Weight 228 lb 3.2 oz Weight 228 lb 3.2 oz I&O: 07/12/19 07/13/19 07/14/19 06:59 06:59 06:59 Intake Total 1500 2860 Output Total 3900 3600 Balance -2400 -740 Result Diagrams: 07/13/19 05:15 07/13/19 05:15 Additional Labs: Accuchecks 07/13/19 07/13/19 07/12/19 11:40 05:11 19:54 POC Glucose 225 H 126 H 188 H 07/12/19 16:08 POC Glucose 147 H Hospitalist ROS - Review of Systems All other systems reviewed; all pertinent +/- noted in HPI/Subj - Medication Medications: Active Medications Generic Name Dose Route Start Last Admin Trade Name Freq PRN Reason Stop Dose Admin Hydrocodone Bitart/Acetaminophen 1 tab 07/12/19 07:29 07/12/19 21:45 Sabina 7.5/325 PO 1 tab Q4H PRN Administration Moderate to Severe Pain (6-10) Amlodipine Besylate 5 mg 07/12/19 09:00 07/13/19 08:21 Norvasc PO 5 mg DAILY ANDREA Administration Atorvastatin Calcium 20 mg 07/12/19 21:00 07/12/19 20:07 Lipitor PO 20 mg HS ANDREA Administration Famotidine 20 mg 07/12/19 09:00 07/13/19 08:21 Pepcid PO 20 mg DAILY ANDREA Administration Flecainide Acetate 100 mg 07/12/19 09:00 07/13/19 08:21 Tambocor PO 100 mg BID ANDREA Administration Gabapentin 600 mg 07/12/19 21:00 07/12/19 20:08 Neurontin PO 600 mg HS ANDREA Administration Gabapentin 100 mg 07/12/19 09:00 07/13/19 08:21 Neurontin PO 100 mg 0900,1500 ANDREA Administration Cefepime HCl 2 gm/ Sodium 100 mls @ 200 mls/hr 07/12/19 09:00 07/13/19 09:23 Chloride IVPB 100 mls Q12HR ANDREA Administration Insulin Glargine 20 units/ 0.2 mls @ 0 mls/hr 07/12/19 21:00 07/12/19 21:14 Miscellaneous Medication SC 0.2 mls HS ANDREA Administration Insulin Glargine 40 units/ 0.4 mls @ 0 mls/hr 07/12/19 09:00 07/13/19 09:23 Miscellaneous Medication SC 0.4 mls DAILY ANDREA Administration Vancomycin HCl 1 gm/ Device 200 mls @ 200 mls/hr 07/12/19 20:00 07/13/19 08: 23 IVPB 200 mls 0800,2000 ANDREA Administration Metoprolol Tartrate 12.5 mg 07/12/19 09:00 07/13/19 08:21 Lopressor PO 12.5 mg BID ANDREA Administration Ondansetron HCl 4 mg 07/12/19 07:29 07/12/19 08:16 Zofran IVP 4 mg Q6H PRN Administration Nausea/Vomiting Prochlorperazine Maleate 5 mg 07/11/19 22:46 07/11/19 23:05 Compazine PO 5 mg Q6H PRN Administration Nausea/Vomiting Sodium Chloride 10 ml 07/12/19 09:00 07/13/19 08:21 Flush - Normal Saline IVF 10 ml Q12HR ANDREA Administration Warfarin Sodium 5 mg 07/12/19 17:00 07/12/19 17:44 Coumadin PO 5 mg 1700 ANDREA Administration Warfarin Sodium 2.5 mg 07/12/19 17:00 07/12/19 17:43 Coumadin PO 2.5 mg TuTh@1700 ANDREA Administration - Exam General Appearance: NAD, awake alert Eye: anicteric sclera ENT: no oropharyngeal lesions, moist mucosa Neck: supple, symmetric, no lymphadenopathy Heart: no murmur, no gallops, no rubs Respiratory: no wheezes, no rales, no ronchi Gastrointestinal: soft, non-tender, non-distended, normal bowel sounds, no guarding, no rigidity Extremities: 1+ LE edema Skin: no lesions, no rashes Skin - other findings: Right foot DM foot wound with wound vac Neurological: cranial nerve grossly intact, no focal deficits Musculoskeletal: no muscle wasting, generalized weakness Psychiatric: normal affect, A&O x 3 Hosp A/P (1) UTI (urinary tract infection) Status: Resolved (2) Sepsis Code(s): A41.9 - SEPSIS, UNSPECIFIED ORGANISM Status: Resolved (3) H/O malignant neoplasm of colon Code(s): Z85.038 - PERSONAL HISTORY OF MALIGNANT NEOPLASM OF LARGE INTESTINE Status: Chronic (4) Atrial fibrillation Code(s): I48.91 - UNSPECIFIED ATRIAL FIBRILLATION Status: Chronic Qualifiers: (5) CKD (chronic kidney disease) stage 3, GFR 30-59 ml/min Code(s): N18.3 - CHRONIC KIDNEY DISEASE, STAGE 3 (MODERATE) Status: Chronic (6) Chronic anticoagulation Code(s): Z79.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 OF ANTICOAGULANTS Status: Chronic (7) Diabetes mellitus type 2, insulin dependent Code(s): E11.9 - TYPE 2 DIABETES MELLITUS WITHOUT COMPLICATIONS; Z79.4 - ASSISTED (CURRENT) USE OF INSULIN Status: Chronic (8) Diabetes type 2, uncontrolled Code(s): E11.65 - TYPE 2 DIABETES MELLITUS WITH HYPERGLYCEMIA Status: Chronic (9) Diabetic foot ulcer Code(s): E11.621 - TYPE 2 DIABETES MELLITUS WITH FOOT ULCER; L97.509 - NON- PRESSURE CHRONIC ULCER OTH PRT UNSP FOOT W UNSP SEVERITY Status: Chronic Qualifiers: Diabetic foot ulcer location: midfoot Laterality: right (10) Hypertension Code(s): I10 - ESSENTIAL (PRIMARY) HYPERTENSION Status: Chronic Qualifiers: (11) ESE (obstructive sleep apnea) Code(s): G47.33 - OBSTRUCTIVE SLEEP APNEA (ADULT) (PEDIATRIC) Status: Chronic (12) Obesity (BMI 30-39.9) Code(s): E66.9 - OBESITY, UNSPECIFIED Status: Chronic (13) Cellulitis of foot Code(s): L03.119 - CELLULITIS OF UNSPECIFIED PART OF LIMB Status: Resolved - Plan Medical/oncology unit oncology consultation, recommendations appreciated infectious disease consultation, recommendations appreciated broad-spectrum antibiotics De escalate to culture and sensitivity as able cultures noted continue Coumadin at home dosing regimen daily INR long-term prognosis for metastatic cancer is guarded, complicated by uncontrolled diabetes mellitus with osteomyelitis and wound VAC in place G.I. in DVT prophylaxis patient desires to be a full code and wishes all aggressive measures
[2019-07-13] MEDS: Warfarin Sodium 5 MG TAB PO SCH (16:49)
[2019-07-13] MEDS: Insulin Regular 300 UNITS/3 ML VIAL SC PRN (16:49)
[2019-07-13] MEDS: HYDROcodone/Acetaminophen 7.5/325 mg Tablet PO PRN (19:38)
[2019-07-13] MEDS: Gabapentin 300 MG CAP PO SCH (21:00)
[2019-07-13] MEDS: Atorvastatin Calcium 20 MG TAB PO SCH (21:00)
[2019-07-13] MEDS: Insulin Glargine 20 UNITS in Pre-Filled Syringe 1 EACH SC SCH (21:06)
[2019-07-13] MEDS: Prochlorperazine Maleate 5 MG TAB PO PRN (22:12)
[2019-07-14 00:47] VITALS: BMI 31.9
[2019-07-14 02:35] LABS: #Eosinphils 0.3 thou/uL (0.0-0.7); #Lymphocytes 1.5 thou/uL (1.20-3.40); #Monocytes 0.6 thou/uL (0.11-0.59); #Neutrophils 4.5 thou/uL (1.40-6.50); %Basophils 0.3 % (0.0-1.0); %Eosinophils 3.8 % (0.0-10.0); %Lymphocytes 22.4 % (21.0-51.0); %Monocytes 8.2 % (0.0-10.0); %Neutrophils 65.4 % (42.0-75.0); Mean Corpuscular Hemoglobin 30.4 pg (27.0-31.0); Mean Corpuscular Volume 86.9 fL (78.0-98.0); Mean Platelet Volume 6.5 fL (7.4-10.4); Platelet Count 172 thou/uL (130-400); RBC Distribution Width 14.5 % (11.5-14.5); Red Blood Cell (RBC) Count 2.94 mill/uL (4.70-6.10); White Blood Cell (WBC) Count 6.8 thou/uL (4.8-10.8)
[2019-07-14 02:40] LABS: INR-International Normal Ratio 1.5; Prothrombin Time 18.2 SEC (12.0-14.7)
[2019-07-14 03:37] LABS: Anion Gap 11 mmol/L (10-20); BUN (Urea Nitrogen) 30 mg/dL (8.4-25.7); Calc. Creatinine Clearance 56 mL/min (70-130); Calcium 8.6 mg/dL (7.8-10.44); Carbon Dioxide 22 mmol/L (23-31); Chloride 101 mmol/L (98-107); Estimated GFR-MDRD 38; Glucose 92 mg/dL (83-110); Potassium 4.1 mmol/L (3.5-5.1); Sodium 130 mmol/L (136-145)
[2019-07-14] MEDS: HYDROcodone/Acetaminophen 7.5/325 mg Tablet PO PRN ×2 (03:50→20:25)
[2019-07-14] MEDS: Flecainide 50 MG TAB PO SCH ×2 (09:01→20:21)
[2019-07-14] MEDS: Gabapentin 100 MG CAP PO SCH ×2 (09:01→14:40)
[2019-07-14] MEDS: Amlodipine 5 MG TAB PO SCH (09:01)
[2019-07-14] MEDS: Cefepime 2 GM in Sodium Chloride 0.9% 100 ML IVPB SCH ×2 (09:01→20:23)
[2019-07-14] MEDS: Metoprolol Tartrate 25 MG TAB PO SCH ×2 (09:02→20:21)
[2019-07-14] MEDS: Insulin Glargine 40 UNITS in Pre-Filled Syringe 1 EACH SC SCH (09:02)
[2019-07-14] MEDS: Famotidine 20 MG TAB PO SCH (09:13)
--- NOTE | 2019-07-14 09:38 | PDOC.HOSPP ---
- Subjective Encounter Date: 07/14/19 Encounter Time: 09:33 Subjective: 69 y/o with stage IV colon cancer, DM, Afib, and Hx right osteomyelitis s/p IV abx admitted with fever and supertherapeutic INR. Feeling better. Fever has subsided. - Objective Vital Signs & Weight: Vital Signs (12 hours) Pulse 07/14/19 09:01 74 Weight Admit Weight 228 lb 3.2 oz Weight 229 lb I&O: 07/13/19 07/14/19 07/15/19 06:59 06:59 06:59 Intake Total 2860 1450 Output Total 3600 2450 Balance -740 -1000 Result Diagrams: 07/14/19 02:25 07/14/19 02:25 Additional Labs: Accuchecks 07/14/19 07/13/19 07/13/19 05:11 20:16 15:38 POC Glucose 75 246 H 259 H 07/13/19 11:40 POC Glucose 225 H Hospitalist ROS - Medication Medications: Active Medications Generic Name Dose Route Start Last Admin Trade Name Freq PRN Reason Stop Dose Admin Hydrocodone Bitart/Acetaminophen 1 tab 07/12/19 07:29 07/14/19 03:50 Tyner 7.5/325 PO 1 tab Q4H PRN Administration Moderate to Severe Pain (6-10) Amlodipine Besylate 5 mg 07/12/19 09:00 07/14/19 09:01 Norvasc PO 5 mg DAILY ANDREA Administration Atorvastatin Calcium 20 mg 07/12/19 21:00 07/13/19 21:00 Lipitor PO 20 mg HS ANDRAE Administration Famotidine 20 mg 07/12/19 09:00 07/14/19 09:13 Pepcid PO 20 mg DAILY ANDREA Administration Flecainide Acetate 100 mg 07/12/19 09:00 07/14/19 09:01 Tambocor PO 100 mg BID ANDREA Administration Gabapentin 600 mg 07/12/19 21:00 07/13/19 21:00 Neurontin PO 600 mg HS ANDREA Administration Gabapentin 100 mg 07/12/19 09:00 07/14/19 09:01 Neurontin PO 100 mg 0900,1500 ANDREA Administration Cefepime HCl 2 gm/ Sodium 100 mls @ 200 mls/hr 07/12/19 09:00 07/14/19 09:01 Chloride IVPB 100 mls Q12HR ANDREA Administration Insulin Glargine 20 units/ 0.2 mls @ 0 mls/hr 07/12/19 21:00 07/13/19 21:06 Miscellaneous Medication SC 0.2 mls HS ANDREA Administration Insulin Glargine 40 units/ 0.4 mls @ 0 mls/hr 07/12/19 09:00 07/14/19 09:02 Miscellaneous Medication SC 0.4 mls DAILY ANDREA Administration Insulin Human Regular 0 units 07/12/19 07:31 07/13/19 16:49 Humulin R SC 4 unit .MILD SLIDING SCALE PRN Administration Mild Correctional Scale Metoprolol Tartrate 12.5 mg 07/12/19 09:00 07/14/19 09:02 Lopressor PO 12.5 mg BID ANDREA Administration Ondansetron HCl 4 mg 07/12/19 07:29 07/12/19 08:16 Zofran IVP 4 mg Q6H PRN Administration Nausea/Vomiting Prochlorperazine Maleate 5 mg 07/11/19 22:46 07/13/19 22:12 Compazine PO 5 mg Q6H PRN Administration Nausea/Vomiting Sodium Chloride 10 ml 07/12/19 09:00 07/14/19 09:02 Flush - Normal Saline IVF 10 ml Q12HR ANDREA Administration Warfarin Sodium 5 mg 07/12/19 17:00 07/13/19 16:49 Coumadin PO 5 mg 1700 ANDREA Administration - Exam General Appearance: awake alert Eye: anicteric sclera ENT: normocephalic atraumatic, moist mucosa Neck: supple, symmetric, no JVD Heart - other findings: Normal heart sound 1 and 2 Respiratory: CTAB, no rales, no ronchi, normal chest expansion Gastrointestinal: soft, non-tender, non-distended, normal bowel sounds Extremities: no cyanosis, no edema Extremities - other findings: Right foot covered with dressing. Wound vac noted Neurological: cranial nerve grossly intact, no focal deficits Musculoskeletal: normal tone, generalized weakness, diffuse muscle atrophy Psychiatric: normal affect, A&O x 3 Hosp A/P (1) MSSA bacteremia Code(s): R78.81 - BACTEREMIA Status: Acute (2) Sepsis Code(s): A41.9 - SEPSIS, UNSPECIFIED ORGANISM Status: Resolved (3) Diabetic foot ulcer Code(s): E11.621 - TYPE 2 DIABETES MELLITUS WITH FOOT ULCER; L97.509 - NON- PRESSURE CHRONIC ULCER OTH PRT UNSP FOOT W UNSP SEVERITY Status: Chronic Qualifiers: Diabetic foot ulcer location: midfoot Laterality: right (4) MSSA (methicillin susceptible Staphylococcus aureus) infection Code(s): A49.01 - METHICILLIN SUSCEP STAPH INFECTION, UNSP SITE Status: Acute (5) Right foot ulcer Code(s): L97.519 - NON-PRS CHRONIC ULCER OTH PRT RIGHT FOOT W UNSP SEVERITY Status: Acute (6) Supratherapeutic INR Code(s): R79.1 - ABNORMAL COAGULATION PROFILE Status: Acute (7) Anemia of chronic disease Code(s): D63.8 - ANEMIA IN OTHER CHRONIC DISEASES CLASSIFIED ELSEWHERE Status : Chronic (8) Atrial fibrillation Code(s): I48.91 - UNSPECIFIED ATRIAL FIBRILLATION Status: Chronic Qualifiers: (9) CKD (chronic kidney disease) stage 3, GFR 30-59 ml/min Code(s): N18.3 - CHRONIC KIDNEY DISEASE, STAGE 3 (MODERATE) Status: Chronic (10) Chronic anticoagulation Code(s): Z79.01 - [facility] (CURRENT) USE OF ANTICOAGULANTS Status: Chronic (11) Diabetes mellitus type 2, insulin dependent Code(s): E11.9 - TYPE 2 DIABETES MELLITUS WITHOUT COMPLICATIONS; Z79.4 - DIRECTOR PEDIATRIC (CURRENT) USE OF INSULIN Status: Chronic (12) H/O malignant neoplasm of colon Code(s): Z85.038 - PERSONAL HISTORY OF MALIGNANT NEOPLASM OF LARGE INTESTINE Status: Chronic (13) Hypertension Code(s): I10 - ESSENTIAL (PRIMARY) HYPERTENSION Status: Chronic Qualifiers: (14) ESE (obstructive sleep apnea) Code(s): G47.33 - OBSTRUCTIVE SLEEP APNEA (ADULT) (PEDIATRIC) Status: Chronic (15) Acute renal failure superimposed on stage 3 chronic kidney disease Code(s): N17.9 - ACUTE KIDNEY FAILURE, UNSPECIFIED; N18.3 - CHRONIC KIDNEY DISEASE, STAGE 3 (MODERATE) Status: Resolved (16) UTI (urinary tract infection) Status: Resolved - Plan Continue broad spectrum antibiotics. Awaiting X ray and arterial US of right foot. MRI of Right foot contemplated. Decrease coumadin to 5 mg daily. Continue other treatments. Monitor renal function and INR
--- NOTE | 2019-07-14 09:40 | RAD ---
RIGHT FOOT 3 VIEWS: Date: 07/13/19 HISTORY: Follow-up osteomyelitis fifth toe. COMPARISON: 04/25/19. FINDINGS: Marked abnormal progressive soft tissue swelling of the fifth toe with very severe extensive progress nilton bony destructive changes of the distal fifth metatarsal, metatarsophalangeal joint, and proximal phalanx, evidence for continued severe destructive bony osteomyelitis. Amputation changes of the four th toe. Other degenerative changes. IMPRESSION: Marked worsening of the soft tissue swelling and bony destructive changes, evidence for much worsenin g bony destructive osteomyelitis. POS: MARISOL
--- NOTE | 2019-07-14 09:51 | ULT ---
RIGHT LOWER EXTREMITY ARTERIOVASCULAR DUPLEX ULTRASOUND INCLUDING COLOR AND SPECTRAL DOPPLER IMAGING: Date: 07/14/19 HISTORY: Nonhealing ulcer right foot, diabetes mellitus type 2. FINDINGS: Triphasic flow involving the right common femoral artery, profunda femoral artery, superficial femora l artery, and popliteal artery. Monophasic flow involving the anterior tibial artery and posterior ti bial artery. Dorsalis pedis artery could not be evaluated because of overlying bandage material. IMPRESSION: Evidence for mild arteriovascular atherosclerotic disease involving the right lower extremity below t he level of the popliteal artery. POS: MARISOL
--- NOTE | 2019-07-14 15:27 | EKG ---
Test Reason : Blood Pressure : / mmHG Vent. Rate : 090 BPM Atrial Rate : 241 BPM P-R Int : 000 ms QRS Dur : 076 ms QT Int : 352 ms P-R-T Axes : 000 038 044 degrees QTc Int : 430 ms Atrial fibrillation Nonspecific ST and T wave abnormality Abnormal ECG Confirmed by NANDA DO, TREVON ([id number]), metropolitan editor EDSON ALFONSO ([id number]) on 07/14/2019 3:27:07 PM Referred By: Confirmed By:TREVON VEE MD
[2019-07-14] MEDS: Insulin Regular 300 UNITS/3 ML VIAL SC PRN ×2 (16:51→20:28)
[2019-07-14] MEDS: Warfarin Sodium 5 MG TAB PO SCH (16:51)
[2019-07-14] MEDS: Insulin Glargine 20 UNITS in Pre-Filled Syringe 1 EACH SC SCH (20:20)
[2019-07-14] MEDS: Atorvastatin Calcium 20 MG TAB PO SCH (20:21)
[2019-07-14] MEDS: Gabapentin 300 MG CAP PO SCH (20:21)
[2019-07-15 05:50] LABS: #Eosinphils 0.2 thou/uL (0.0-0.7); #Lymphocytes 1.2 thou/uL (1.20-3.40); #Monocytes 0.5 thou/uL (0.11-0.59); %Basophils 0.5 % (0.0-1.0); %Eosinophils 4.8 % (0.0-10.0); %Lymphocytes 23.7 % (21.0-51.0); %Monocytes 10.8 % (0.0-10.0); %Neutrophils 60.2 % (42.0-75.0); Mean Corpuscular HGB CONC 34.9 g/dL (32.0-36.0); Mean Corpuscular Hemoglobin 30.4 pg (27.0-31.0); Mean Corpuscular Volume 87.1 fL (78.0-98.0); Mean Platelet Volume 7.2 fL (7.4-10.4); Platelet Count 160 thou/uL (130-400); RBC Distribution Width 14.8 % (11.5-14.5); Red Blood Cell (RBC) Count 3.62 mill/uL (4.70-6.10)
[2019-07-15 05:55] LABS: INR-International Normal Ratio 2.1; Prothrombin Time 23.7 SEC (12.0-14.7)
[2019-07-15 06:20] LABS: Anion Gap 10 mmol/L (10-20); BUN (Urea Nitrogen) 35 mg/dL (8.4-25.7); Calc. Creatinine Clearance 68 mL/min (70-130); Calcium 8.8 mg/dL (7.8-10.44); Carbon Dioxide 25 mmol/L (23-31); Chloride 101 mmol/L (98-107); Estimated GFR-MDRD 47; Glucose 110 mg/dL (83-110); Potassium 4.2 mmol/L (3.5-5.1); Sodium 132 mmol/L (136-145)
[2019-07-15] MEDS: Insulin Glargine 40 UNITS in Pre-Filled Syringe 1 EACH SC SCH (08:27)
[2019-07-15] MEDS: Metoprolol Tartrate 25 MG TAB PO SCH ×2 (08:27→21:42)
[2019-07-15] MEDS: Flecainide 50 MG TAB PO SCH ×2 (08:27→21:41)
[2019-07-15] MEDS: Amlodipine 5 MG TAB PO SCH (08:28)
[2019-07-15] MEDS: Famotidine 20 MG TAB PO SCH (08:29)
[2019-07-15] MEDS: Gabapentin 100 MG CAP PO SCH ×2 (08:29→14:10)
[2019-07-15] MEDS: Prochlorperazine Maleate 5 MG TAB PO PRN (08:29)
[2019-07-15] MEDS: Cefepime 2 GM in Sodium Chloride 0.9% 100 ML IVPB SCH ×2 (08:30→21:40)
[2019-07-15] MEDS: Insulin Regular 300 UNITS/3 ML VIAL SC PRN ×2 (11:20→15:57)
--- NOTE | 2019-07-15 14:13 | PDOC.HOSPP ---
- Subjective Encounter Date: 07/15/19 Encounter Time: 08:10 Subjective: 69 y/o with stage IV colon cancer, DM, Afib, and Hx right osteomyelitis s/p IV abx admitted with fever and supertherapeutic INR. Feeling better. Fever has subsided. complaining of right foot pain. - Objective Vital Signs & Weight: Vital Signs (12 hours) Temp Pulse Resp BP Pulse Ox 07/15/19 08:28 67 07/15/19 08:00 98.0 F 79 18 137/65 99 Weight Admit Weight 228 lb 3.2 oz Weight 229 lb I&O: 07/14/19 07/15/19 07/16/19 06:59 06:59 06:59 Intake Total 1450 1180 Output Total 2455 5128 366 Balance -1000 -745 -900 Result Diagrams: 07/15/19 05:32 07/15/19 05:32 Additional Labs: Accuchecks 07/15/19 07/15/19 07/14/19 11:13 05:33 20:27 POC Glucose 242 H 123 H 226 H 07/14/19 16:27 POC Glucose 217 H Hospitalist ROS - Medication Medications: Active Medications Generic Name Dose Route Start Last Admin Trade Name Freq PRN Reason Stop Dose Admin Hydrocodone Bitart/Acetaminophen 1 tab 07/12/19 07:29 07/14/19 20:25 [place] 7.5/325 PO 1 tab Q4H PRN Administration Moderate to Severe Pain (6-10) Amlodipine Besylate 5 mg 07/12/19 09:00 07/15/19 08:28 Norvasc PO 5 mg DAILY ANDREA Administration Atorvastatin Calcium 20 mg 07/12/19 21:00 07/14/19 20:21 Lipitor PO 20 mg HS ANDREA Administration Famotidine 20 mg 07/12/19 09:00 07/15/19 08:29 Pepcid PO 20 mg DAILY ANDREA Administration Flecainide Acetate 100 mg 07/12/19 09:00 07/15/19 08:27 Tambocor PO 100 mg BID ANDREA Administration Gabapentin 600 mg 07/12/19 21:00 07/14/19 20:21 Neurontin PO 600 mg HS ANDREA Administration Gabapentin 100 mg 07/12/19 09:00 07/15/19 08:29 Neurontin PO 100 mg 0900,1500 ANDREA Administration Cefepime HCl 2 gm/ Sodium 100 mls @ 200 mls/hr 07/12/19 09:00 07/15/19 08:30 Chloride IVPB 100 mls Q12HR ANDREA Administration Insulin Glargine 20 units/ 0.2 mls @ 0 mls/hr 07/12/19 21:00 07/14/19 20:20 Miscellaneous Medication SC 0.2 mls HS ANDREA Administration Insulin Glargine 40 units/ 0.4 mls @ 0 mls/hr 07/12/19 09:00 07/15/19 08:27 Miscellaneous Medication SC 0.4 mls DAILY ANDREA Administration Insulin Human Regular 0 units 07/12/19 07:31 07/15/19 11:20 Humulin R SC 3 unit .MILD SLIDING SCALE PRN Administration Mild Correctional Scale Insulin Human Regular 0 units 07/12/19 07:31 07/14/19 20:28 Humulin R SC 2 unit .BEDTIME SLIDING SC PRN Administration Bedtime Correctional Scale Metoprolol Tartrate 12.5 mg 07/12/19 09:00 07/15/19 08:27 Lopressor PO 12.5 mg BID ANDREA Administration Ondansetron HCl 4 mg 07/12/19 07:29 07/12/19 08:16 Zofran IVP 4 mg Q6H PRN Administration Nausea/Vomiting Prochlorperazine Maleate 5 mg 07/11/19 22:46 07/15/19 08:29 Compazine PO 5 mg Q6H PRN Administration Nausea/Vomiting Sodium Chloride 10 ml 07/12/19 09:00 07/15/19 08:35 Flush - Normal Saline IVF 10 ml Q12HR ANDREA Administration Warfarin Sodium 5 mg 07/12/19 17:00 07/14/19 16:51 Coumadin PO 5 mg 1700 ANDREA Administration - Exam General Appearance: awake alert Eye: anicteric sclera ENT: normocephalic atraumatic, moist mucosa Neck: supple, symmetric Heart: RRR Respiratory: no wheezes, no ronchi Gastrointestinal: soft, non-tender, non-distended, normal bowel sounds Extremities: no edema Extremities - other findings: no erythema. right foot and ankle covered with dressing Neurological: cranial nerve grossly intact Musculoskeletal: diffuse muscle atrophy Psychiatric: A&O x 3 Hosp A/P (1) Osteomyelitis of right foot Code(s): M86.9 - OSTEOMYELITIS, UNSPECIFIED Status: Acute (2) MSSA bacteremia Code(s): R78.81 - BACTEREMIA Status: Acute (3) Sepsis Code(s): A41.9 - SEPSIS, UNSPECIFIED ORGANISM Status: Resolved (4) Diabetic foot ulcer Code(s): E11.621 - TYPE 2 DIABETES MELLITUS WITH FOOT ULCER; L97.509 - NON- PRESSURE CHRONIC ULCER OTH PRT UNSP FOOT W UNSP SEVERITY Status: Chronic Qualifiers: Diabetic foot ulcer location: midfoot Laterality: right (5) MSSA (methicillin susceptible Staphylococcus aureus) infection Code(s): A49.01 - METHICILLIN SUSCEP STAPH INFECTION, UNSP SITE Status: Acute (6) Right foot ulcer Code(s): L97.519 - NON-PRS CHRONIC ULCER OTH PRT RIGHT FOOT W UNSP SEVERITY Status: Acute (7) Supratherapeutic INR Code(s): R79.1 - ABNORMAL COAGULATION PROFILE Status: Acute (8) Anemia of chronic disease Code(s): D63.8 - ANEMIA IN OTHER CHRONIC DISEASES CLASSIFIED ELSEWHERE Status : Chronic (9) Atrial fibrillation Code(s): I48.91 - UNSPECIFIED ATRIAL FIBRILLATION Status: Chronic Qualifiers: (10) CKD (chronic kidney disease) stage 3, GFR 30-59 ml/min Code(s): N18.3 - CHRONIC KIDNEY DISEASE, STAGE 3 (MODERATE) Status: Chronic (11) Chronic anticoagulation Code(s): Z79.01 - [facility] [employer]IV[facility] (CURRENT) USE OF ANTICOAGULANTS Status: Chronic (12) Diabetes mellitus type 2, insulin dependent Code(s): E11.9 - TYPE 2 DIABETES MELLITUS WITHOUT COMPLICATIONS; Z79.4 - [employer]ER (CURRENT) USE OF INSULIN Status: Chronic (13) H/O malignant neoplasm of colon Code(s): Z85.038 - PERSONAL HISTORY OF MALIGNANT NEOPLASM OF LARGE INTESTINE Status: Chronic (14) Hypertension Code(s): I10 - ESSENTIAL (PRIMARY) HYPERTENSION Status: Chronic Qualifiers: (15) ESE (obstructive sleep apnea) Code(s): G47.33 - OBSTRUCTIVE SLEEP APNEA (ADULT) (PEDIATRIC) Status: Chronic (16) Acute renal failure superimposed on stage 3 chronic kidney disease Code(s): N17.9 - ACUTE KIDNEY FAILURE, UNSPECIFIED; N18.3 - CHRONIC KIDNEY DISEASE, STAGE 3 (MODERATE) Status: Resolved (17) UTI (urinary tract infection) Status: Resolved - Plan Continue broad spectrum antibiotics. Get MRI of Right foot Continue other treatments. Monitor renal function and INR
[2019-07-15] MEDS: Warfarin Sodium 5 MG TAB PO SCH (16:01)
[2019-07-15] MEDS: HYDROcodone/Acetaminophen 7.5/325 mg Tablet PO PRN (18:13)
[2019-07-15] MEDS: Atorvastatin Calcium 20 MG TAB PO SCH (21:42)
[2019-07-15] MEDS: Gabapentin 300 MG CAP PO SCH (21:42)
[2019-07-15] MEDS: Insulin Glargine 20 UNITS in Pre-Filled Syringe 1 EACH SC SCH (21:44)
[2019-07-16 03:39] LABS: INR-International Normal Ratio 2.8; Prothrombin Time 29.5 SEC (12.0-14.7)
[2019-07-16 03:56] LABS: Anion Gap 12 mmol/L (10-20); BUN (Urea Nitrogen) 45 mg/dL (8.4-25.7); Calc. Creatinine Clearance 66 mL/min (70-130); Calcium 8.7 mg/dL (7.8-10.44); Carbon Dioxide 23 mmol/L (23-31); Chloride 101 mmol/L (98-107); Estimated GFR-MDRD 46; Glucose 190 mg/dL (83-110); Potassium 4.3 mmol/L (3.5-5.1); Sodium 132 mmol/L (136-145)
[2019-07-16 04:48] LABS: Hemoglobin 8.2 g/dL (14.0-18.0); Mean Corpuscular HGB CONC 35.1 g/dL (32.0-36.0); Mean Corpuscular Hemoglobin 30.6 pg (27.0-31.0); Mean Corpuscular Volume 87.1 fL (78.0-98.0); Mean Platelet Volume 7.1 fL (7.4-10.4); Platelet Count 181 thou/uL (130-400); RBC Distribution Width 14.6 % (11.5-14.5); Red Blood Cell (RBC) Count 2.68 mill/uL (4.70-6.10); White Blood Cell (WBC) Count 6.5 thou/uL (4.8-10.8)
[2019-07-16 05:46] LABS: Band 4 % (5-11); Elliptocytes SLIGHT = 2-5 cells (100X) (0-1/hpf); Eosinophils 4 % (0-10); Lymphocytes 23 % (21-51); MDiff Complete? YES; Monocytes 7 % (0-10); Neutrophil 62 % (42-75); Platelet Morphology Comment Appears Adequate
[2019-07-16] MEDS: Insulin Regular 300 UNITS/3 ML VIAL SC PRN ×2 (06:24→12:49)
[2019-07-16] MEDS: Famotidine 20 MG TAB PO SCH (08:16)
[2019-07-16] MEDS: Metoprolol Tartrate 25 MG TAB PO SCH ×2 (08:16→21:18)
[2019-07-16] MEDS: Amlodipine 5 MG TAB PO SCH (08:16)
[2019-07-16] MEDS: Flecainide 50 MG TAB PO SCH ×2 (08:16→21:19)
[2019-07-16] MEDS: Insulin Glargine 40 UNITS in Pre-Filled Syringe 1 EACH SC SCH (08:20)
[2019-07-16] MEDS: Gabapentin 100 MG CAP PO SCH ×2 (08:20→16:41)
[2019-07-16] MEDS: Cefepime 2 GM in Sodium Chloride 0.9% 100 ML IVPB SCH ×2 (08:24→21:17)
--- NOTE | 2019-07-16 08:46 | CON ---
DATE OF CONSULTATION: 07/13/2019 REASON FOR CONSULTATION: Bacteremia. HISTORY OF PRESENT ILLNESS: A 69-year-old patient whom I had seen recently in March this year when he presented with a history of type 2 diabetes, neuropathy, and a previous ulcer in the right lateral foot as well as prior UTI and a history of colon cancer, on chemotherapy with 5-FU under Dr. Huff' supervision. The patient had the right foot with the fifth MPJ site with an ulcerated area, round-shaped, I could not probe bone it appears to be covered by periosteum and soft tissue. Cultures revealed Pseudomonas aeruginosa, Klebsiella, Staph aureus and the patient had an MRI which showed marrow edema changes in the 5th metatarsal head proximal phalanx suspicious for early osteomyelitis. The patient was discharged on cefepime and vancomycin through a port that he had in the right subclavian location. He was followed, I believe in [place] with Dr. Jones and transitioned to ciprofloxacin and doxycycline after completion of therapy. Dr. Shena Sanchez, saw him a couple of times and transcutaneous oxygen mapping of the distal right lower extremity was ordered in preparation for hyperbaric oxygen therapy. The wound did not have any purulent drainage. No evidence of cellulitis was appreciated. There was no edema. There is some undermining associated with the wound, full thickness debridement was done with the scissors. The 2nd visit was in July 05 and there was an ulceration in the right lateral forefoot measuring 2.3 x 2 cm. Bone and tendon were visible within the wound margins. There was nonviable tissue present within the wound margins, which was debrided with a full-thickness debridement. No purulent drainage or maceration was noted. A trial of hyperbaric treatment was planned by Dr. Sanchez. The patient was admitted at this time for an unrelated problem, specifically the patient had an abnormal INR while on Coumadin with an INR of 11.3. The patient did not have any bleeding episodes reported. On admission, his blood pressure was 160/70, pulse 97, O2 saturation 98, temperature is 97.9. Subsequently, his temperature went up to 102.4. The exam was not particularly remarkable. Initial labs with a white cell count 11.2, hemoglobin 9.7, platelets 233 with 85 % neutrophils 11.5, and again this is noted. Creatinine was 2.02, now with a baseline ranging from 3.42 to-3.20. His AST is 30, ALT 31, and alkaline phosphatase 96, and CK was 62. The patient had 2 sets of blood culture submitted, 1 out of 2 has yielded Staphylococcus aureus and the organism is methicillin-susceptible Staph aureus. The patient has been started on cefepime and vancomycin. Currently, Mr. King is awake. He does not appear in any acute distress. He denies any headaches. No visual symptoms, sore throat, odynophagia , dysphagia. No neck pain. No back pain. No dyspnea or cough. No abdominal pain or diarrhea. No genitourinary symptoms. No pain at the port site which is accessed at this point. Not much sensation in the lower extremities with neuropathy. PAST MEDICAL HISTORY: Type 2 diabetes, colon cancer, metastatic to liver and lungs with chemotherapy through a port in right subclavian location, neuropathy with an ulcerated area in the right 5th toe which was treated for protracted periods of time with IV cefepime and vancomycin with polymicrobial felicity and evidence of early osteomyelitis without resolution of the ulcer felt to be mostly due to vascular insufficiency. Also with renal insufficiency stage 3, prior 4th toe osteomyelitis which required amputation, atrial fibrillation, urinary retention. PAST SURGICAL HISTORY: Partial colectomy, MediPort placement, cholecystectomy, partial liver resection, 4th toe amputation, hernia repair, atrial fibrillation ablation x2. SOCIAL HISTORY: , never a smoker. FAMILY HISTORY: Hypertension and diabetes. ALLERGIES: NO KNOWN DRUG ALLERGY HISTORY. PHYSICAL EXAMINATION: VITAL SIGNS: T-max was 102 on admission. It seems to have defervesced since admission. Other vital signs are not particularly remarkable. O2 saturation 98% . SKIN: Remarkable for the area of ulceration localized in the lateral aspect of his forefoot, right side. ASSESSMENT: 1. Type 2 diabetes with neuropathy. 2. Chronic ulcer in right lateral forefoot, 5th MPJ, skin site. 3. Evidence of osteomyelitis on MRI which was obtained in March of this year. 4. Protracted IV antimicrobial therapy through port in the right subclavian location. 5. Colon cancer, receiving palliative chemotherapy with 5-FU with prior liver mass which was resected and lung mass reportedly. 6. Excessive anticoagulation, which led to admission. 7. Serendipitous identification of fever which led to the diagnosis of bacteremia, which is transient secondary to Staphylococcus aureus, which is methicillin sensitive. DISCUSSION: Differential diagnosis includes bacteremia from the right foot region which is the more likely scenario versus colonization of the port. Typically intravascular structures colonized by Staphylococcus aureus, one would expect continuous bacteremia i.e. both sets would be positive. If the 2nd sets remain negative, then it would favor the hypothesis of the foot as the origin of this bacteremia. We will have to repeat the studies and keep the high-degree of suspicion for the port down the road since that even in the situation where the foot is the origin with the current bacteremia, the patient may in the future develop colonization nonetheless. Endocarditis would be also less likely for the same reasons, other sites such as other bone and joint sites, spine are less likely. At this point, we will switch him to cefazolin. Repeat x-rays of the right foot and then plan now further intervention according to the results of the foot evaluation. In my previous note from March, I observed palpable dorsalis pedis pulses and therefore did not order an arterial duplex ultrasound. We will go ahead and order it to see what we have in terms of vascular supply to the right foot. If there is evidence of destruction of the bone, the 5th metatarsal, the joint and there is adequate vascular supply, then probably he will require amputation of the foot ray. Job ID: [id number] MTDD
--- NOTE | 2019-07-16 12:55 | PDOC.HOSPP ---
- Subjective Encounter Date: 07/16/19 Encounter Time: 12:53 Subjective: 69 y/o with stage IV colon cancer, DM, Afib, and Hx right osteomyelitis s/p IV abx admitted with fever and supertherapeutic INR. Feeling better. Fever has subsided. For MRI today. - Objective Vital Signs & Weight: Vital Signs (12 hours) Temp Pulse Resp BP Pulse Ox 07/16/19 08:00 98.2 F 74 18 144/66 H 100 Weight Admit Weight 228 lb 3.2 oz Weight 229 lb I&O: 07/15/19 07/16/19 07/17/19 06:59 06:59 06:59 Intake Total 1180 2300 Output Total 1925 4000 Balance -921 -4978 Result Diagrams: 07/16/19 04:09 07/16/19 03:24 Additional Labs: Accuchecks 07/16/19 07/15/19 07/15/19 11:04 19:29 15:56 POC Glucose 272 H 181 H 238 H Hospitalist ROS - Medication Medications: Active Medications Generic Name Dose Route Start Last Admin Trade Name Freq PRN Reason Stop Dose Admin Hydrocodone Bitart/Acetaminophen 1 tab 07/12/19 07:29 07/15/19 18:13 [place] 7.5/325 PO 1 tab Q4H PRN Administration Moderate to Severe Pain (6-10) Amlodipine Besylate 5 mg 07/12/19 09:00 07/16/19 08:16 Norvasc PO 5 mg DAILY ANDREA Administration Atorvastatin Calcium 20 mg 07/12/19 21:00 07/15/19 21:42 Lipitor PO 20 mg HS ANDREA Administration Famotidine 20 mg 07/12/19 09:00 07/16/19 08:16 Pepcid PO 20 mg DAILY ANDREA Administration Flecainide Acetate 100 mg 07/12/19 09:00 07/16/19 08:16 Tambocor PO 100 mg BID ANDREA Administration Gabapentin 600 mg 07/12/19 21:00 07/15/19 21:42 Neurontin PO 600 mg HS ANDREA Administration Gabapentin 100 mg 07/12/19 09:00 07/16/19 08:20 Neurontin PO 100 mg 0900,1500 ANDREA Administration Cefepime HCl 2 gm/ Sodium 100 mls @ 200 mls/hr 07/12/19 09:00 07/16/19 08:24 Chloride IVPB 100 mls Q12HR ANDREA Administration Insulin Glargine 20 units/ 0.2 mls @ 0 mls/hr 07/12/19 21:00 07/15/19 21:44 Miscellaneous Medication SC 0.2 mls HS ANDREA Administration Insulin Glargine 40 units/ 0.4 mls @ 0 mls/hr 07/12/19 09:00 07/16/19 08:20 Miscellaneous Medication SC 0.4 mls DAILY ANDREA Administration Insulin Human Regular 0 units 07/12/19 07:31 07/16/19 12:49 Humulin R SC 4 unit .MILD SLIDING SCALE PRN Administration Mild Correctional Scale Insulin Human Regular 0 units 07/12/19 07:31 07/14/19 20:28 Humulin R SC 2 unit .BEDTIME SLIDING SC PRN Administration Bedtime Correctional Scale Metoprolol Tartrate 12.5 mg 07/12/19 09:00 07/16/19 08:16 Lopressor PO 12.5 mg BID ANDREA Administration Ondansetron HCl 4 mg 07/12/19 07:29 07/12/19 08:16 Zofran IVP 4 mg Q6H PRN Administration Nausea/Vomiting Prochlorperazine Maleate 5 mg 07/11/19 22:46 07/15/19 08:29 Compazine PO 5 mg Q6H PRN Administration Nausea/Vomiting Sodium Chloride 10 ml 07/12/19 09:00 07/16/19 08:25 Flush - Normal Saline IVF 10 ml Q12HR ANDREA Administration Warfarin Sodium 5 mg 07/12/19 17:00 07/15/19 16:01 Coumadin PO 5 mg 1700 ANDREA Administration - Exam General Appearance: awake alert Eye: anicteric sclera ENT: normocephalic atraumatic Neck: supple, symmetric Heart: RRR Respiratory: no wheezes, no rales, no ronchi Gastrointestinal: soft, non-tender, non-distended, normal bowel sounds Extremities: no cyanosis Extremities - other findings: Right foot/ankle covered with dressing Neurological: cranial nerve grossly intact Psychiatric: normal affect, A&O x 3 Hosp A/P (1) Osteomyelitis of right foot Code(s): M86.9 - OSTEOMYELITIS, UNSPECIFIED Status: Acute (2) MSSA bacteremia Code(s): R78.81 - BACTEREMIA Status: Acute (3) Sepsis Code(s): A41.9 - SEPSIS, UNSPECIFIED ORGANISM Status: Resolved (4) Diabetic foot ulcer Code(s): E11.621 - TYPE 2 DIABETES MELLITUS WITH FOOT ULCER; L97.509 - NON- PRESSURE CHRONIC ULCER OTH PRT UNSP FOOT W UNSP SEVERITY Status: Chronic Qualifiers: Diabetic foot ulcer location: midfoot Laterality: right (5) MSSA (methicillin susceptible Staphylococcus aureus) infection Code(s): A49.01 - METHICILLIN SUSCEP STAPH INFECTION, UNSP SITE Status: Acute (6) Right foot ulcer Code(s): L97.519 - NON-PRS CHRONIC ULCER OTH PRT RIGHT FOOT W UNSP SEVERITY Status: Acute (7) Supratherapeutic INR Code(s): R79.1 - ABNORMAL COAGULATION PROFILE Status: Acute (8) Anemia of chronic disease Code(s): D63.8 - ANEMIA IN OTHER CHRONIC DISEASES CLASSIFIED ELSEWHERE Status : Chronic (9) Atrial fibrillation Code(s): I48.91 - UNSPECIFIED ATRIAL FIBRILLATION Status: Chronic Qualifiers: (10) CKD (chronic kidney disease) stage 3, GFR 30-59 ml/min Code(s): N18.3 - CHRONIC KIDNEY DISEASE, STAGE 3 (MODERATE) Status: Chronic (11) Chronic anticoagulation Code(s): Z79.01 - [facility] (CURRENT) USE OF ANTICOAGULANTS Status: Chronic (12) Diabetes mellitus type 2, insulin dependent Code(s): E11.9 - TYPE 2 DIABETES MELLITUS WITHOUT COMPLICATIONS; Z79.4 - S[employer] SCRE[employer] REPA[employer]ER (CURRENT) USE OF INSULIN Status: Chronic (13) H/O malignant neoplasm of colon Code(s): Z85.038 - PERSONAL HISTORY OF MALIGNANT NEOPLASM OF LARGE INTESTINE Status: Chronic (14) Hypertension Code(s): I10 - ESSENTIAL (PRIMARY) HYPERTENSION Status: Chronic Qualifiers: (15) ESE (obstructive sleep apnea) Code(s): G47.33 - OBSTRUCTIVE SLEEP APNEA (ADULT) (PEDIATRIC) Status: Chronic (16) Acute renal failure superimposed on stage 3 chronic kidney disease Code(s): N17.9 - ACUTE KIDNEY FAILURE, UNSPECIFIED; N18.3 - CHRONIC KIDNEY DISEASE, STAGE 3 (MODERATE) Status: Resolved (17) UTI (urinary tract infection) Status: Resolved - Plan Continue broad spectrum antibiotics. Await MRI of Right foot Hold coumadin today as INR is trending up at 2.8 Continue other treatments. Monitor renal function and INR
--- NOTE | 2019-07-16 14:10 | MRI ---
MRI RIGHT FOOT PERFORMED WITH AND WITHOUT CONTRAST ENHANCEMENT: Date: 07/16/19 HISTORY: Sore along lateral side of right foot for 7 weeks. Patient is diabetic. FINDINGS: Soft tissue ulcer and associated soft tissue changes are seen along the lateral side of the foot at t he level of the distal end of the fifth metatarsal. There is abnormal enhancement and increased T2 si gnal change, both within the proximal phalanx of the little toe and within the fifth metatarsal head and involving the distal fifth metatarsal shaft. The fourth metatarsal appears normal. There has been amputation of the fourth toe. No other areas of abnormal marrow signal change are seen. No abscess formation. IMPRESSION: Findings compatible with osteomyelitis of the fifth metatarsal and proximal phalanx of the little toe . POS: OFF
--- NOTE | 2019-07-16 20:10 | PRG ---
DATE OF SERVICE: 07/16/2019 SUBJECTIVE: Feeling well. No headaches. No visual symptoms, sore throat, odynophagia, dysphagia. No cough, sputum production, or chest pain. No diarrhea. OBJECTIVE: VITAL SIGNS: He has been afebrile since admission, other vital signs are normal. GENERAL: Awake, alert, oriented, and pleasant. LUNGS: Clear S1 and S2. Regular rate. ABDOMEN: Soft. Not distended or tender. No ascites. EXTREMITIES: Right foot with negative pressure dressing. LABORATORY DATA: White cell count 6.5, hemoglobin 8.2, and platelets 181. Creatinine is 1.5, which is improved from admission. Microbiology with Staph aureus from 1 set of blood cultures. Foot x-ray from 07/13 with markedly abnormal progressive soft tissue swelling of 5th toe with severe extensive progressive bony destructive changes, distal 5th metatarsal. The MRI obviously concurred with this findings as well. ASSESSMENT AND DISCUSSION: Type 2 diabetes; ulcer in right lateral forefoot, 5th metatarsophalangeal joint skin site; osteomyelitis, which has shown progression despite a protracted IV antimicrobial therapy; colon cancer, on palliative chemotherapy and 5-FU; bacteremia Staph aureus 1/2 sets, probably from the foot. At this point, I would advise amputation of the 5th ray/fifth metatarsal. He is currently receiving cefepime q.12 hours to be continued since part of his microbiology from earlier this year showed Pseudomonas aeruginosa and Enterobacter cloacae. Job ID: [id number]
[2019-07-16] MEDS: Insulin Glargine 20 UNITS in Pre-Filled Syringe 1 EACH SC SCH (21:17)
[2019-07-16] MEDS: Atorvastatin Calcium 20 MG TAB PO SCH (21:18)
[2019-07-16] MEDS: Gabapentin 300 MG CAP PO SCH (21:18)
[2019-07-16] MEDS: HYDROcodone/Acetaminophen 7.5/325 mg Tablet PO PRN (21:27)
[2019-07-17 02:58] LABS: #Eosinphils 0.4 thou/uL (0.0-0.7); #Lymphocytes 1.9 thou/uL (1.20-3.40); #Monocytes 1.1 thou/uL (0.11-0.59); #Neutrophils 3.9 thou/uL (1.40-6.50); %Basophils 0.7 % (0.0-1.0); %Eosinophils 5.2 % (0.0-10.0); %Monocytes 14.6 % (0.0-10.0); %Neutrophils 53.5 % (42.0-75.0); Hemoglobin 7.9 g/dL (14.0-18.0); Mean Corpuscular HGB CONC 34.5 g/dL (32.0-36.0); Mean Corpuscular Hemoglobin 30.5 pg (27.0-31.0); Mean Corpuscular Volume 88.3 fL (78.0-98.0); Mean Platelet Volume 7.2 fL (7.4-10.4); Platelet Count 192 thou/uL (130-400); RBC Distribution Width 14.9 % (11.5-14.5); Red Blood Cell (RBC) Count 2.59 mill/uL (4.70-6.10); White Blood Cell (WBC) Count 7.3 thou/uL (4.8-10.8)
[2019-07-17 03:03] LABS: INR-International Normal Ratio 3.1; Prothrombin Time 31.3 SEC (12.0-14.7)
[2019-07-17 03:22] LABS: Anion Gap 10 mmol/L (10-20); BUN (Urea Nitrogen) 48 mg/dL (8.4-25.7); Calc. Creatinine Clearance 61 mL/min (70-130); Calcium 8.8 mg/dL (7.8-10.44); Carbon Dioxide 24 mmol/L (23-31); Chloride 104 mmol/L (98-107); Estimated GFR-MDRD 42; Glucose 169 mg/dL (83-110); Potassium 4.2 mmol/L (3.5-5.1); Sodium 134 mmol/L (136-145)
[2019-07-17] MEDS: Insulin Regular 300 UNITS/3 ML VIAL SC PRN ×2 (06:26→17:31)
[2019-07-17] MEDS: Metoprolol Tartrate 25 MG TAB PO SCH ×2 (09:00→20:35)
[2019-07-17] MEDS: Famotidine 20 MG TAB PO SCH (09:00)
[2019-07-17] MEDS: Flecainide 50 MG TAB PO SCH ×2 (09:07→20:36)
[2019-07-17] MEDS: Gabapentin 100 MG CAP PO SCH ×2 (09:09→14:27)
[2019-07-17] MEDS: Amlodipine 5 MG TAB PO SCH (09:12)
[2019-07-17] MEDS: Cefepime 2 GM in Sodium Chloride 0.9% 100 ML IVPB SCH ×2 (09:15→20:35)
[2019-07-17] MEDS: Insulin Glargine 40 UNITS in Pre-Filled Syringe 1 EACH SC SCH (09:24)
--- NOTE | 2019-07-17 13:37 | PDOC.HOSPP ---
- Subjective Encounter Date: 07/17/19 Encounter Time: 13:35 Subjective: Mr. King was seen today in follow-up of toe infection. He notes feeling a bit " foggy" this afternoon. - Objective Vital Signs & Weight: Vital Signs (12 hours) Temp Pulse Resp BP BP BP BP 07/17/19 12:14 114/59 L 95/55 L 91/50 L 07/17/19 09:12 64 110/55 L 07/17/19 08:40 97.4 F L 64 16 110/55 L Pulse Ox 07/17/19 12:14 07/17/19 09:12 07/17/19 08:40 96 Weight Admit Weight 228 lb 3.2 oz Weight 229 lb I&O: 07/16/19 07/17/19 07/18/19 06:59 06:59 06:59 Intake Total 2300 Output Total 4000 1200 1450 Balance -1700 -1200 -1450 Result Diagrams: 07/17/19 02:47 07/17/19 02:47 Additional Labs: Accuchecks 07/17/19 07/16/19 07/16/19 05:12 20:08 16:38 POC Glucose 214 H 188 H 196 H Hospitalist ROS - Medication Medications: Active Medications Generic Name Dose Route Start Last Admin Trade Name Freq PRN Reason Stop Dose Admin Hydrocodone Bitart/Acetaminophen 1 tab 07/12/19 07:29 07/16/19 21:27 [place] 7.5/325 PO 1 tab Q4H PRN Administration Moderate to Severe Pain (6-10) Amlodipine Besylate 5 mg 07/12/19 09:00 07/17/19 09:12 Norvasc PO 5 mg DAILY ANDREA Administration Atorvastatin Calcium 20 mg 07/12/19 21:00 07/16/19 21:18 Lipitor PO 20 mg HS ANDREA Administration Famotidine 20 mg 07/12/19 09:00 07/16/19 08:16 Pepcid PO 20 mg DAILY ANDREA Administration Flecainide Acetate 100 mg 07/12/19 09:00 07/17/19 09:07 Tambocor PO 100 mg BID ANDREA Administration Gabapentin 600 mg 07/12/19 21:00 07/16/19 21:18 Neurontin PO 600 mg HS ANDREA Administration Gabapentin 100 mg 07/12/19 09:00 07/17/19 09:09 Neurontin PO 100 mg 0900,1500 ANDREA Administration Cefepime HCl 2 gm/ Sodium 100 mls @ 200 mls/hr 07/12/19 09:00 07/17/19 09:15 Chloride IVPB 100 mls Q12HR ANDREA Administration Insulin Glargine 20 units/ 0.2 mls @ 0 mls/hr 07/12/19 21:00 07/16/19 21:17 Miscellaneous Medication SC 0.2 mls HS ANDREA Administration Insulin Glargine 40 units/ 0.4 mls @ 0 mls/hr 07/12/19 09:00 07/17/19 09:24 Miscellaneous Medication SC 0.4 mls DAILY ANDREA Administration Insulin Human Regular 0 units 07/12/19 07:31 07/17/19 06:26 Humulin R SC 3 unit .MILD SLIDING SCALE PRN Administration Mild Correctional Scale Insulin Human Regular 0 units 07/12/19 07:31 07/14/19 20:28 Humulin R SC 2 unit .BEDTIME SLIDING SC PRN Administration Bedtime Correctional Scale Metoprolol Tartrate 12.5 mg 07/12/19 09:00 07/16/19 21:18 Lopressor PO 12.5 mg BID ANDREA Administration Ondansetron HCl 4 mg 07/12/19 07:29 07/12/19 08:16 Zofran IVP 4 mg Q6H PRN Administration Nausea/Vomiting Prochlorperazine Maleate 5 mg 07/11/19 22:46 07/15/19 08:29 Compazine PO 5 mg Q6H PRN Administration Nausea/Vomiting Sodium Chloride 10 ml 07/12/19 09:00 07/17/19 09:23 Flush - Normal Saline IVF 10 ml Q12HR ANDREA Administration Warfarin Sodium 5 mg 07/12/19 17:00 07/15/19 16:01 Coumadin PO 5 mg 1700 ANDREA Administration - Exam Eye: PERRL, anicteric sclera Heart: RRR, no murmur, no gallops, no rubs, normal peripheral pulses Respiratory: CTAB, no wheezes, no rales, no ronchi, normal chest expansion Gastrointestinal: soft, non-tender, non-distended, normal bowel sounds Extremities: no cyanosis, no clubbing, no edema Hosp A/P (1) Osteomyelitis of right foot Code(s): M86.9 - OSTEOMYELITIS, UNSPECIFIED Status: Acute (2) Supratherapeutic INR Code(s): R79.1 - ABNORMAL COAGULATION PROFILE Status: Acute (3) CKD (chronic kidney disease) stage 3, GFR 30-59 ml/min Code(s): N18.3 - CHRONIC KIDNEY DISEASE, STAGE 3 (MODERATE) Status: Chronic (4) Diabetes type 2, uncontrolled Code(s): E11.65 - TYPE 2 DIABETES MELLITUS WITH HYPERGLYCEMIA Status: Chronic (5) Hypertension Code(s): I10 - ESSENTIAL (PRIMARY) HYPERTENSION Status: Chronic Qualifiers: - Plan * Osteomyelitis of the 5th toe on the right foot- continue Cefepime and Vanncomycin * Will consult Podiatry for toe amputation * HTN- blood pressure is a bit low, will hold Amlodipine in the AM if his pressure continues to be on the low side * DM- blood glucose is stable * Colon cancer- chemotherapy as per Dr. Huff
[2019-07-17] MEDS: Warfarin Sodium 5 MG TAB PO SCH (17:32)
[2019-07-17] MEDS: Gabapentin 300 MG CAP PO SCH (20:35)
[2019-07-17] MEDS: Atorvastatin Calcium 20 MG TAB PO SCH (20:36)
[2019-07-17] MEDS: Insulin Glargine 20 UNITS in Pre-Filled Syringe 1 EACH SC SCH (20:36)
--- NOTE | 2019-07-17 22:11 | CON ---
DATE OF CONSULTATION: SUBJECTIVE FINDINGS: The patient is resting comfortably in bed. Discussing with the patient his current condition, he states he has been dealing with a wound on his right foot for at least 2 months. He has been on IV antibiotics for 6 weeks and has had a wound VAC treatment. His wound has just continued to progress. He states his blood sugars are up and down. OBJECTIVE FINDINGS: Examination of the patient shows them to have good pulses palpable 2/4 on the right foot. There is reduced air growth. The patient has significant reduction in light touch to the right foot. Examination of the wound, right foot 5th metatarsal phalangeal joint area laterally shows the metatarsophalangeal joint to be open. Loose cartilage is seen in the wound. There are granular tissues as well as necrotic tissues in the wound. Examination on x-ray shows significant destruction of the metatarsal head and proximal phalanx fifth digit. ASSESSMENT AND PLAN: 1. Patient with osteomyelitis right 5th metatarsal and base of the 5th digit proximal phalanx. 2. Patient with significant neuropathy and diabetes. 3. Patient and I discussed the situation and he has been scheduled for amputation, partial, right 5th metatarsal with digit. Job ID: [id number]
[2019-07-17] MEDS: HYDROcodone/Acetaminophen 7.5/325 mg Tablet PO PRN (22:20)
[2019-07-18 04:56] LABS: Anion Gap 11 mmol/L (10-20); BUN (Urea Nitrogen) 45 mg/dL (8.4-25.7); Calc. Creatinine Clearance 65 mL/min (70-130); Calcium 8.7 mg/dL (7.8-10.44); Carbon Dioxide 22 mmol/L (23-31); Chloride 106 mmol/L (98-107); Estimated GFR-MDRD 45; Glucose 88 mg/dL (83-110); Sodium 135 mmol/L (136-145)
[2019-07-18 05:00] LABS: INR-International Normal Ratio 2.9; Prothrombin Time 30.2 SEC (12.0-14.7)
[2019-07-18] MEDS: Metoprolol Tartrate 25 MG TAB PO SCH ×2 (05:07→20:43)
[2019-07-18 05:25] LABS: Hemoglobin 7.9 g/dL (14.0-18.0); Mean Corpuscular HGB CONC 34.5 g/dL (32.0-36.0); Mean Corpuscular Hemoglobin 30.5 pg (27.0-31.0); Mean Corpuscular Volume 88.4 fL (78.0-98.0); Mean Platelet Volume 6.6 fL (7.4-10.4); Platelet Count 229 thou/uL (130-400); RBC Distribution Width 14.7 % (11.5-14.5); White Blood Cell (WBC) Count 8.2 thou/uL (4.8-10.8)
[2019-07-18 05:26] LABS: Band 2 % (5-11); Eosinophils 4 % (0-10); Lymphocytes 24 % (21-51); MDiff Complete? YES; Monocytes 13 % (0-10); Neutrophil 57 % (42-75)
[2019-07-18] MEDS: Cefepime 2 GM in Sodium Chloride 0.9% 100 ML IVPB SCH ×2 (08:29→20:42)
[2019-07-18] MEDS: Insulin Glargine 40 UNITS in Pre-Filled Syringe 1 EACH SC SCH (08:31)
[2019-07-18] MEDS: Famotidine 20 MG TAB PO SCH (09:39)
[2019-07-18] MEDS: Flecainide 50 MG TAB PO SCH ×2 (09:39→20:42)
[2019-07-18] MEDS: Amlodipine 5 MG TAB PO SCH (09:39)
[2019-07-18] MEDS: Gabapentin 100 MG CAP PO SCH ×2 (09:40→16:45)
[2019-07-18] MEDS ORDERED: ePHEDrine 50 MG/ML VIAL ONE (10:21)
[2019-07-18] MEDS ORDERED: PROPOFOL 200 MG/20 ML VIAL ONE (10:21)
[2019-07-18] MEDS ORDERED: PHENYLEPHRINE-NS 100 MCG/ML 10 ML SYRINGE ONE (10:21)
[2019-07-18] MEDS ORDERED: Bupivacaine PF 0.5% 30 ML VIAL ONE (10:53)
[2019-07-18] MEDS ORDERED: Neomycin-Polymyxin 1 ML AMP ONE (10:53)
[2019-07-18] MEDS ORDERED: Fentanyl 100 MCG/2 ML VIAL ONE (11:54)
[2019-07-18] MEDS ORDERED: Propofol 500 MG/50 ML VIAL ONE (11:54)
[2019-07-18] MEDS ORDERED: Lidocaine 2% Jelly 5 ML TUBE ONE (11:54)
--- NOTE | 2019-07-18 15:49 | PDOC.HOSPP ---
- Subjective Encounter Date: 07/18/19 Encounter Time: 15:47 Subjective: Mr. King was seen today in follow-up of diabetic foot infection. He does not have any complaints. He notes feeling a bit tired this morning. - Objective Vital Signs & Weight: Vital Signs (12 hours) Temp Pulse Pulse Pulse Resp BP BP 07/18/19 09:39 65 07/18/19 08:52 67 75 136/64 95/51 L 07/18/19 08:00 97.8 F 65 18 BP BP BP Pulse Ox 07/18/19 09:39 07/18/19 08:52 07/18/19 08:00 94/51 L 82/53 L 117/56 L 98 Weight Admit Weight 228 lb 3.2 oz Weight 229 lb I&O: 07/17/19 07/18/19 07/19/19 06:59 06:59 06:59 Intake Total 1280 Output Total 1200 2082 625 Balance -1200 -2620 -625 Result Diagrams: 07/18/19 04:20 07/18/19 04:19 Additional Labs: Accuchecks 07/18/19 07/17/19 07/17/19 11:03 20:12 16:42 POC Glucose 75 180 H 204 H Hospitalist ROS - Medication Medications: Active Medications Generic Name Dose Route Start Last Admin Trade Name Freq PRN Reason Stop Dose Admin Hydrocodone Bitart/Acetaminophen 1 tab 07/12/19 07:29 07/17/19 22:20 [place] 7.5/325 PO 1 tab Q4H PRN Administration Moderate to Severe Pain (6-10) Amlodipine Besylate 5 mg 07/12/19 09:00 07/18/19 09:39 Norvasc PO Not Given DAILY ANDREA Atorvastatin Calcium 20 mg 07/12/19 21:00 07/17/19 20:36 Lipitor PO 20 mg HS ANDREA Administration Famotidine 20 mg 07/12/19 09:00 07/18/19 09:39 Pepcid PO Not Given DAILY ANDREA Flecainide Acetate 100 mg 07/12/19 09:00 07/18/19 09:39 Tambocor PO Not Given BID ANDREA Gabapentin 600 mg 07/12/19 21:00 07/17/19 20:35 Neurontin PO 600 mg HS ANDREA Administration Gabapentin 100 mg 07/12/19 09:00 07/18/19 09:40 Neurontin PO Not Given 0900,1500 [facility] Cefepime HCl 2 gm/ Sodium 100 mls @ 200 mls/hr 07/12/19 09:00 07/18/19 08:29 Chloride IVPB 100 mls Q12HR ANDREA Administration Insulin Glargine 20 units/ 0.2 mls @ 0 mls/hr 07/12/19 21:00 07/17/19 20:36 Miscellaneous Medication SC 0.2 mls HS ANDREA Administration Insulin Glargine 40 units/ 0.4 mls @ 0 mls/hr 07/12/19 09:00 07/18/19 08:31 Miscellaneous Medication SC Not Given DAILY ANDREA Insulin Human Regular 0 units 07/12/19 07:31 07/17/19 17:31 Humulin R SC 2 unit .MILD SLIDING SCALE PRN Administration Mild Correctional Scale Insulin Human Regular 0 units 07/12/19 07:31 07/14/19 20:28 Humulin R SC 2 unit .BEDTIME SLIDING SC PRN Administration Bedtime Correctional Scale Metoprolol Tartrate 12.5 mg 07/12/19 09:00 07/18/19 05:07 Lopressor PO 12.5 mg BID ANDREA Administration Ondansetron HCl 4 mg 07/12/19 07:29 07/12/19 08:16 Zofran IVP 4 mg Q6H PRN Administration Nausea/Vomiting Prochlorperazine Maleate 5 mg 07/11/19 22:46 07/15/19 08:29 Compazine PO 5 mg Q6H PRN Administration Nausea/Vomiting Sodium Chloride 10 ml 07/12/19 09:00 07/18/19 08:31 Flush - Normal Saline IVF 10 ml Q12HR ANDREA Administration Warfarin Sodium 5 mg 07/12/19 17:00 07/17/19 17:32 Coumadin PO Not Given 1700 [facility] - Exam Eye: PERRL, anicteric sclera Heart: RRR, no murmur, no gallops, no rubs, normal peripheral pulses Respiratory: CTAB, no wheezes, no rales, no ronchi, normal chest expansion, no tachypnea, normal percussion Gastrointestinal: soft, non-tender, non-distended, normal bowel sounds, no palpable masses, no hepatomegaly Extremities: no cyanosis, no clubbing, no edema Hosp A/P (1) Osteomyelitis of right foot Code(s): M86.9 - OSTEOMYELITIS, UNSPECIFIED Status: Acute (2) Supratherapeutic INR Code(s): R79.1 - ABNORMAL COAGULATION PROFILE Status: Acute (3) CKD (chronic kidney disease) stage 3, GFR 30-59 ml/min Code(s): N18.3 - CHRONIC KIDNEY DISEASE, STAGE 3 (MODERATE) Status: Chronic (4) Diabetes type 2, uncontrolled Code(s): E11.65 - TYPE 2 DIABETES MELLITUS WITH HYPERGLYCEMIA Status: Chronic (5) Hypertension Code(s): I10 - ESSENTIAL (PRIMARY) HYPERTENSION Status: Chronic Qualifiers: - Plan * Osteomyelitis of the 5th toe right foot- patient is s/p toe amputation * Can likely transition to oral antibiotics soon * HTN- blood pressure continues to run a bit low- will give a 500 ml bolus of NS , and liberalize his fluid restriction to 2L * DM- blood glucose is a bit labile- continue SSI * Colon cancer- chemotherapy as per Dr. Huff
[2019-07-18] MEDS ORDERED: Sodium Chloride 0.9% 500 ML IV SCH (16:00)
[2019-07-18] MEDS: Warfarin Sodium 5 MG TAB PO SCH (19:03)
[2019-07-18] MEDS: Gabapentin 300 MG CAP PO SCH (20:43)
[2019-07-18] MEDS: Atorvastatin Calcium 20 MG TAB PO SCH (20:43)
[2019-07-18] MEDS: Insulin Glargine 20 UNITS in Pre-Filled Syringe 1 EACH SC SCH (20:50)
[2019-07-18] MEDS: HYDROcodone/Acetaminophen 7.5/325 mg Tablet PO PRN (22:32)
[2019-07-19] MEDS: HYDROcodone/Acetaminophen 7.5/325 mg Tablet PO PRN ×2 (05:28→23:05)
--- NOTE | 2019-07-19 07:40 | PDOC.HOSPP ---
- Subjective Encounter Date: 07/19/19 Encounter Time: 07:39 Subjective: 69 y/o with stage IV colon cancer, DM, Afib, and Hx right osteomyelitis s/p IV abx admitted with fever and supertherapeutic INR. Evaluation of right non healing wound showed osteomyelitis. S/p amputation of R 5th ray with wound vac placement. Fever has subsided. No new problem. - Objective Vital Signs & Weight: Vital Signs (12 hours) Temp Pulse Resp BP Pulse Ox 07/19/19 07:06 98.4 F 73 18 123/58 L 97 07/18/19 19:54 97.6 F 69 16 132/60 100 Weight Admit Weight 228 lb 3.2 oz Weight 229 lb I&O: 07/18/19 07/19/19 07/20/19 06:59 06:59 06:59 Intake Total 1280 2810 Output Total 3900 2300 Balance -2620 510 Result Diagrams: 07/18/19 04:20 07/18/19 04:19 Additional Labs: Accuchecks 07/19/19 07/18/19 07/18/19 05:02 20:46 15:53 POC Glucose 127 H 172 H 120 H 07/18/19 11:03 POC Glucose 75 Hospitalist ROS - Medication Medications: Active Medications Generic Name Dose Route Start Last Admin Trade Name Freq PRN Reason Stop Dose Admin Hydrocodone Bitart/Acetaminophen 1 tab 07/12/19 07:29 07/19/19 05:28 [place] 7.5/325 PO 1 tab Q4H PRN Administration Moderate to Severe Pain (6-10) Amlodipine Besylate 5 mg 07/12/19 09:00 07/18/19 09:39 Norvasc PO Not Given DAILY ANDREA Atorvastatin Calcium 20 mg 07/12/19 21:00 07/18/19 20:43 Lipitor PO 20 mg HS ANDREA Administration Famotidine 20 mg 07/12/19 09:00 07/18/19 09:39 Pepcid PO Not Given DAILY ANDREA Flecainide Acetate 100 mg 07/12/19 09:00 07/18/19 20:42 Tambocor PO 100 mg BID ANDREA Administration Gabapentin 600 mg 07/12/19 21:00 07/18/19 20:43 Neurontin PO 600 mg HS ANDREA Administration Gabapentin 100 mg 07/12/19 09:00 07/18/19 16:45 Neurontin PO 100 mg 0900,1500 ANDREA Administration Cefepime HCl 2 gm/ Sodium 100 mls @ 200 mls/hr 07/12/19 09:00 07/18/19 20:42 Chloride IVPB 100 mls Q12HR ANDREA Administration Insulin Glargine 20 units/ 0.2 mls @ 0 mls/hr 07/12/19 21:00 07/18/19 20:50 Miscellaneous Medication SC 0.2 mls HS ANDREA Administration Insulin Glargine 40 units/ 0.4 mls @ 0 mls/hr 07/12/19 09:00 07/18/19 08:31 Miscellaneous Medication SC Not Given DAILY ANDREA Insulin Human Regular 0 units 07/12/19 07:31 07/17/19 17:31 Humulin R SC 2 unit .MILD SLIDING SCALE PRN Administration Mild Correctional Scale Insulin Human Regular 0 units 07/12/19 07:31 07/14/19 20:28 Humulin R SC 2 unit .BEDTIME SLIDING SC PRN Administration Bedtime Correctional Scale Metoprolol Tartrate 12.5 mg 07/12/19 09:00 07/18/19 20:43 Lopressor PO 12.5 mg BID ANDREA Administration Ondansetron HCl 4 mg 07/12/19 07:29 07/12/19 08:16 Zofran IVP 4 mg Q6H PRN Administration Nausea/Vomiting Prochlorperazine Maleate 5 mg 07/11/19 22:46 07/15/19 08:29 Compazine PO 5 mg Q6H PRN Administration Nausea/Vomiting Sodium Chloride 10 ml 07/12/19 09:00 07/18/19 20:43 Flush - Normal Saline IVF 10 ml Q12HR ANDREA Administration Warfarin Sodium 5 mg 07/12/19 17:00 07/18/19 19:03 Coumadin PO Not Given 1700 [facility] - Exam General Appearance: awake alert Eye: anicteric sclera ENT: normocephalic atraumatic Neck: supple, symmetric, no JVD Heart: RRR Respiratory: no rales, no ronchi, normal chest expansion Gastrointestinal: soft, non-tender, non-distended Extremities: no cyanosis, no edema Extremities - other findings: Right lateral foot wound vac noted Neurological: cranial nerve grossly intact, no focal deficits Psychiatric: A&O x 3 Hosp A/P (1) Osteomyelitis of right foot Code(s): M86.9 - OSTEOMYELITIS, UNSPECIFIED Status: Acute (2) MSSA bacteremia Code(s): R78.81 - BACTEREMIA Status: Acute (3) Sepsis Code(s): A41.9 - SEPSIS, UNSPECIFIED ORGANISM Status: Resolved (4) Diabetic foot ulcer Code(s): E11.621 - TYPE 2 DIABETES MELLITUS WITH FOOT ULCER; L97.509 - NON- PRESSURE CHRONIC ULCER OTH PRT UNSP FOOT W UNSP SEVERITY Status: Chronic Qualifiers: Diabetic foot ulcer location: midfoot Laterality: right (5) MSSA (methicillin susceptible Staphylococcus aureus) infection Code(s): A49.01 - METHICILLIN SUSCEP STAPH INFECTION, UNSP SITE Status: Acute (6) Right foot ulcer Code(s): L97.519 - NON-PRS CHRONIC ULCER OTH PRT RIGHT FOOT W UNSP SEVERITY Status: Acute (7) Supratherapeutic INR Code(s): R79.1 - ABNORMAL COAGULATION PROFILE Status: Acute (8) Anemia of chronic disease Code(s): D63.8 - ANEMIA IN OTHER CHRONIC DISEASES CLASSIFIED ELSEWHERE Status : Chronic (9) Atrial fibrillation Code(s): I48.91 - UNSPECIFIED ATRIAL FIBRILLATION Status: Chronic Qualifiers: (10) CKD (chronic kidney disease) stage 3, GFR 30-59 ml/min Code(s): N18.3 - CHRONIC KIDNEY DISEASE, STAGE 3 (MODERATE) Status: Chronic (11) Chronic anticoagulation Code(s): Z79.01 - RETIREMENT (CURRENT) USE OF ANTICOAGULANTS Status: Chronic (12) Diabetes mellitus type 2, insulin dependent Code(s): E11.9 - TYPE 2 DIABETES MELLITUS WITHOUT COMPLICATIONS; Z79.4 - SOFTWARE CLERK (CURRENT) USE OF INSULIN Status: Chronic (13) H/O malignant neoplasm of colon Code(s): Z85.038 - PERSONAL HISTORY OF MALIGNANT NEOPLASM OF LARGE INTESTINE Status: Chronic (14) Hypertension Code(s): I10 - ESSENTIAL (PRIMARY) HYPERTENSION Status: Chronic Qualifiers: (15) ESE (obstructive sleep apnea) Code(s): G47.33 - OBSTRUCTIVE SLEEP APNEA (ADULT) (PEDIATRIC) Status: Chronic (16) Acute renal failure superimposed on stage 3 chronic kidney disease Code(s): N17.9 - ACUTE KIDNEY FAILURE, UNSPECIFIED; N18.3 - CHRONIC KIDNEY DISEASE, STAGE 3 (MODERATE) Status: Resolved (17) UTI (urinary tract infection) Status: Resolved - Plan Continue broad spectrum antibiotics. Hold coumadin today as INR is 2.9 and there is some bleeding at OP site Wound care to continue Get repeat CBC and transfuse if indicated Continue other treatments. Get CBC, renal function, mag and INR in the am
[2019-07-19] MEDS: Gabapentin 100 MG CAP PO SCH ×2 (07:47→15:20)
[2019-07-19] MEDS: Flecainide 50 MG TAB PO SCH ×2 (07:47→20:05)
[2019-07-19] MEDS: Metoprolol Tartrate 25 MG TAB PO SCH ×2 (07:48→20:05)
[2019-07-19] MEDS: Famotidine 20 MG TAB PO SCH (07:48)
[2019-07-19] MEDS: Insulin Glargine 40 UNITS in Pre-Filled Syringe 1 EACH SC SCH (07:50)
[2019-07-19] MEDS: Cefepime 2 GM in Sodium Chloride 0.9% 100 ML IVPB SCH ×2 (07:52→20:05)
[2019-07-19] MEDS: Amlodipine 5 MG TAB PO SCH (07:56)
--- NOTE | 2019-07-19 09:16 | OP ---
DATE OF PROCEDURE: 07/18/2019 PREOPERATIVE DIAGNOSIS: Osteomyelitis 5th metatarsal head and proximal phalanx 5th digit. POSTOPERATIVE DIAGNOSIS: Osteomyelitis 5th metatarsal head and proximal phalanx 5th digit. PROCEDURE PERFORMED: Partial amputation 5th metatarsal with digit right foot. ANESTHESIA: TIVA with local ankle block, 15 mL of 0.5% plain Marcaine. ESTIMATED BLOOD LOSS: Less than 50 mL. DESCRIPTION OF PROCEDURE: The patient was taken to the operating room, placed on the operating room table in the supine position. After IV sedation was achieved, a right ankle block was performed. Next, the right lower extremity was prepped and draped in the usual surgical manner. Attention was directed to the right foot. A racquet incision with a linear aspect dorsally over the 5th metatarsal. The digit and ulcer were circumscribed. The tissues were reflected laterally with a towel clamp, and using a bone saw, the 5th metatarsal was resected at a bias taking more plantar and laterally. The anatomical unit was removed and placed on the back table. Deep culture was performed at this time, asking for Gram stain, aerobic and anaerobic culture. Attention was directed to the wound. The tendinous structures were clamped, retracted distally, and sharply transected. Using a rongeur, the small amount of necrotic tissue that was present was removed. Healthy granular tissues and bleeding tissues noted that were healthy granular and bleeding tissues remain. Using a Bovie, skin bleeders were cauterized. Wound Care presented and applied a wound VAC. The patient tolerated the anesthesia and procedure well. He left the operating room to the recovery room with vital signs stable. The patient is being readmitted for IV antibiotic, wound care, and physical therapy. Job ID: [id number]
--- NOTE | 2019-07-19 09:22 | PRG ---
DATE OF SERVICE: 07/18/2019 POSTOP NOTE: He is in the room 135. PREOPERATIVE DIAGNOSIS: Osteomyelitis, fifth metatarsal and proximal phalanx of the fifth digit, right foot. POSTOPERATIVE DIAGNOSIS: Osteomyelitis, fifth metatarsal and proximal phalanx of the fifth digit, right foot. PROCEDURE: Partial fifth metatarsal amputation with digit, right foot. ANESTHESIA: TIVA with ankle block. ESTIMATED BLOOD LOSS: Less than 50 mL. PATHOLOGY: Necrotic bone and tissues sent for gross and culture and sensitivity. COMPLICATIONS: None. Job ID: [id number]
[2019-07-19 10:05] LABS: INR-International Normal Ratio 3.1
[2019-07-19 10:10] LABS: Hemoglobin 7.4 g/dL (14.0-18.0); Mean Corpuscular HGB CONC 35.7 g/dL (32.0-36.0); Mean Corpuscular Hemoglobin 30.9 pg (27.0-31.0); Mean Corpuscular Volume 86.7 fL (78.0-98.0); Mean Platelet Volume 6.9 fL (7.4-10.4); Platelet Count 221 thou/uL (130-400); RBC Distribution Width 15.1 % (11.5-14.5); White Blood Cell (WBC) Count 8.9 thou/uL (4.8-10.8)
[2019-07-19 10:15] LABS: Anion Gap 10 mmol/L (10-20); BUN (Urea Nitrogen) 42 mg/dL (8.4-25.7); Calc. Creatinine Clearance 63 mL/min (70-130); Calcium 8.3 mg/dL (7.8-10.44); Carbon Dioxide 21 mmol/L (23-31); Chloride 105 mmol/L (98-107); Estimated GFR-MDRD 43; Glucose 130 mg/dL (83-110); Potassium 4.2 mmol/L (3.5-5.1); Sodium 132 mmol/L (136-145)
[2019-07-19 11:18] LABS: Band 4 % (5-11); Eosinophils 3 % (0-10); Hemoglobin 7.6 g/dL (14.0-18.0); Lymphocytes 26 % (21-51); MDiff Complete? YES; Mean Corpuscular HGB CONC 35.9 g/dL (32.0-36.0); Mean Corpuscular Hemoglobin 31.2 pg (27.0-31.0); Mean Corpuscular Volume 86.8 fL (78.0-98.0); Mean Platelet Volume 6.8 fL (7.4-10.4); Monocytes 11 % (0-10); Neutrophil 54 % (42-75); Platelet Count 221 thou/uL (130-400); Platelet Morphology Comment Appears Adequate; Polychromasia SLIGHT = 2-3 cells (100X) (0-2/hpf); RBC Distribution Width 14.9 % (11.5-14.5); Red Blood Cell (RBC) Count 2.43 mill/uL (4.70-6.10); White Blood Cell (WBC) Count 8.5 thou/uL (4.8-10.8)
[2019-07-19] MEDS: Gabapentin 300 MG CAP PO SCH (20:05)
[2019-07-19] MEDS: Atorvastatin Calcium 20 MG TAB PO SCH (20:05)
[2019-07-19] MEDS: Insulin Glargine 20 UNITS in Pre-Filled Syringe 1 EACH SC SCH (20:06)
--- NOTE | 2019-07-20 01:12 | PRG ---
DATE OF SERVICE: He is in room 135, postoperative day #1. SUBJECTIVE FINDINGS: The patient is seen today at lunch time. He is resting comfortably in his bed, visiting with his . The patient states he has some pain, but controlled with medications. He reports that he will be working with physical therapy for gait later this afternoon. OBJECTIVE FINDINGS: The patient has the wound VAC intact and functioning. The patient has no gross edema to the leg or foot. The patient appears to be doing well. ASSESSMENT AND PLAN: 1. The patient will follow up with me within 2 weeks post discharge from hospital. 2. The patient is having arrangements for outpatient wound VAC care and IV antibiotic treatment. Job ID: [id number]
[2019-07-20 04:55] LABS: Albumin 3.2 g/dL (3.4-4.8); Anion Gap 9 mmol/L (10-20); BUN (Urea Nitrogen) 40 mg/dL (8.4-25.7); BUN/Creatinine Ratio 25.48; Calc. Creatinine Clearance 63 mL/min (70-130); Calcium 8.6 mg/dL (7.8-10.44); Carbon Dioxide 22 mmol/L (23-31); Chloride 105 mmol/L (98-107); Estimated GFR-MDRD 44; Glucose 68 mg/dL (83-110); Magnesium 1.6 mg/dL (1.6-2.6); Phosphorus 2.3 mg/dL (2.3-4.7); Sodium 132 mmol/L (136-145)
[2019-07-20 05:01] LABS: Band 4 % (5-11); Eosinophils 9 % (0-10); Hemoglobin 7.6 g/dL (14.0-18.0); Lymphocytes 30 % (21-51); MDiff Complete? YES; Mean Corpuscular HGB CONC 34.8 g/dL (32.0-36.0); Mean Corpuscular Hemoglobin 30.8 pg (27.0-31.0); Mean Corpuscular Volume 88.5 fL (78.0-98.0); Mean Platelet Volume 6.7 fL (7.4-10.4); Metamyelocyte 1 % (0-0); Monocytes 10 % (0-10); Neutrophil 46 % (42-75); Platelet Count 245 thou/uL (130-400); Platelet Morphology Comment Appears Adequate; RBC Distribution Width 15.4 % (11.5-14.5); Red Blood Cell (RBC) Count 2.48 mill/uL (4.70-6.10); White Blood Cell (WBC) Count 8.1 thou/uL (4.8-10.8)
--- NOTE | 2019-07-20 07:53 | PDOC.HOSPP ---
- Subjective Encounter Date: 07/20/19 Encounter Time: 07:51 Subjective: 69 y/o with stage IV colon cancer, DM, Afib, and Hx right osteomyelitis s/p IV abx admitted with fever and supertherapeutic INR. Evaluation of right non healing wound showed osteomyelitis. S/p amputation of R 5th ray with wound vac placement. Fever has subsided. No new problem. Awaiting discharge - Objective Vital Signs & Weight: Weight Admit Weight 228 lb 3.2 oz Weight 229 lb I&O: 07/19/19 07/20/19 07/21/19 06:59 06:59 06:59 Intake Total 2810 2595 Output Total 2300 1800 Balance 510 795 Result Diagrams: 07/20/19 04:27 07/20/19 04:27 Additional Labs: Accuchecks 07/20/19 07/19/19 07/19/19 06:09 19:57 16:14 POC Glucose 87 132 H 115 H 07/19/19 12:03 POC Glucose 132 H Hospitalist ROS - Medication Medications: Active Medications Generic Name Dose Route Start Last Admin Trade Name Freq PRN Reason Stop Dose Admin Hydrocodone Bitart/Acetaminophen 1 tab 07/12/19 07:29 07/19/19 23:05 [place] 7.5/325 PO 1 tab Q4H PRN Administration Moderate to Severe Pain (6-10) Amlodipine Besylate 5 mg 07/12/19 09:00 07/19/19 07:56 Norvasc PO Not Given DAILY ANDREA Atorvastatin Calcium 20 mg 07/12/19 21:00 07/19/19 20:05 Lipitor PO 20 mg HS ANDREA Administration Famotidine 20 mg 07/12/19 09:00 07/19/19 07:48 Pepcid PO 20 mg DAILY ANDREA Administration Flecainide Acetate 100 mg 07/12/19 09:00 07/19/19 20:05 Tambocor PO 100 mg BID ANDREA Administration Gabapentin 600 mg 07/12/19 21:00 07/19/19 20:05 Neurontin PO 600 mg HS ANDREA Administration Gabapentin 100 mg 07/12/19 09:00 07/19/19 15:20 Neurontin PO 100 mg 0900,1500 ANDREA Administration Cefepime HCl 2 gm/ Sodium 100 mls @ 200 mls/hr 07/12/19 09:00 07/19/19 20:05 Chloride IVPB 100 mls Q12HR ANDREA Administration Insulin Glargine 20 units/ 0.2 mls @ 0 mls/hr 07/12/19 21:00 07/19/19 20:06 Miscellaneous Medication SC 0.2 mls HS ANDREA Administration Insulin Glargine 40 units/ 0.4 mls @ 0 mls/hr 07/12/19 09:00 07/19/19 07:50 Miscellaneous Medication SC 0.4 mls DAILY ANDREA Administration Insulin Human Regular 0 units 07/12/19 07:31 07/17/19 17:31 Humulin R SC 2 unit .MILD SLIDING SCALE PRN Administration Mild Correctional Scale Insulin Human Regular 0 units 07/12/19 07:31 07/14/19 20:28 Humulin R SC 2 unit .BEDTIME SLIDING SC PRN Administration Bedtime Correctional Scale Metoprolol Tartrate 12.5 mg 07/12/19 09:00 07/19/19 20:05 Lopressor PO 12.5 mg BID ANDREA Administration Ondansetron HCl 4 mg 07/12/19 07:29 07/12/19 08:16 Zofran IVP 4 mg Q6H PRN Administration Nausea/Vomiting Prochlorperazine Maleate 5 mg 07/11/19 22:46 07/15/19 08:29 Compazine PO 5 mg Q6H PRN Administration Nausea/Vomiting Sodium Chloride 10 ml 07/12/19 09:00 07/19/19 20:06 Flush - Normal Saline IVF 10 ml Q12HR ANDREA Administration Warfarin Sodium 5 mg 07/12/19 17:00 07/18/19 19:03 Coumadin PO Not Given 1700 [facility] - Exam General Appearance: awake alert Eye: anicteric sclera ENT: normocephalic atraumatic Neck: supple, symmetric Heart: RRR Respiratory: no wheezes, no rales, no ronchi, normal chest expansion Gastrointestinal: soft, non-tender, non-distended, normal bowel sounds Extremities: no cyanosis, no edema Extremities - other findings: Right foot dressing with wound vac noted Neurological: cranial nerve grossly intact Psychiatric: normal affect, A&O x 3 Hosp A/P (1) Osteomyelitis of right foot Code(s): M86.9 - OSTEOMYELITIS, UNSPECIFIED Status: Acute (2) MSSA bacteremia Code(s): R78.81 - BACTEREMIA Status: Acute (3) Sepsis Code(s): A41.9 - SEPSIS, UNSPECIFIED ORGANISM Status: Resolved (4) Diabetic foot ulcer Code(s): E11.621 - TYPE 2 DIABETES MELLITUS WITH FOOT ULCER; L97.509 - NON- PRESSURE CHRONIC ULCER OTH PRT UNSP FOOT W UNSP SEVERITY Status: Chronic Qualifiers: Diabetic foot ulcer location: midfoot Laterality: right (5) MSSA (methicillin susceptible Staphylococcus aureus) infection Code(s): A49.01 - METHICILLIN SUSCEP STAPH INFECTION, UNSP SITE Status: Acute (6) Right foot ulcer Code(s): L97.519 - NON-PRS CHRONIC ULCER OTH PRT RIGHT FOOT W UNSP SEVERITY Status: Acute (7) Supratherapeutic INR Code(s): R79.1 - ABNORMAL COAGULATION PROFILE Status: Acute (8) Anemia of chronic disease Code(s): D63.8 - ANEMIA IN OTHER CHRONIC DISEASES CLASSIFIED ELSEWHERE Status : Chronic (9) Atrial fibrillation Code(s): I48.91 - UNSPECIFIED ATRIAL FIBRILLATION Status: Chronic Qualifiers: (10) CKD (chronic kidney disease) stage 3, GFR 30-59 ml/min Code(s): N18.3 - CHRONIC KIDNEY DISEASE, STAGE 3 (MODERATE) Status: Chronic (11) Chronic anticoagulation Code(s): Z79.01 - [facility] (CURRENT) USE OF ANTICOAGULANTS Status: Chronic (12) Diabetes mellitus type 2, insulin dependent Code(s): E11.9 - TYPE 2 DIABETES MELLITUS WITHOUT COMPLICATIONS; Z79.4 - FIELD 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 (CURRENT) USE OF INSULIN Status: Chronic (13) H/O malignant neoplasm of colon Code(s): Z85.038 - PERSONAL HISTORY OF MALIGNANT NEOPLASM OF LARGE INTESTINE Status: Chronic (14) Hypertension Code(s): I10 - ESSENTIAL (PRIMARY) HYPERTENSION Status: Chronic Qualifiers: (15) ESE (obstructive sleep apnea) Code(s): G47.33 - OBSTRUCTIVE SLEEP APNEA (ADULT) (PEDIATRIC) Status: Chronic (16) Acute renal failure superimposed on stage 3 chronic kidney disease Code(s): N17.9 - ACUTE KIDNEY FAILURE, UNSPECIFIED; N18.3 - CHRONIC KIDNEY DISEASE, STAGE 3 (MODERATE) Status: Resolved (17) UTI (urinary tract infection) Status: Resolved - Plan Start salt tablets for hyponatremia Continue broad spectrum antibiotics. Wound care to continue For possible discharge today if wound vac and antibiotics can be arranged.
[2019-07-20] MEDS: Cefepime 2 GM in Sodium Chloride 0.9% 100 ML IVPB SCH ×2 (09:09→21:40)
[2019-07-20] MEDS: Insulin Glargine 40 UNITS in Pre-Filled Syringe 1 EACH SC SCH (09:10)
[2019-07-20] MEDS: Amlodipine 5 MG TAB PO SCH (09:10)
[2019-07-20] MEDS: Flecainide 50 MG TAB PO SCH ×2 (09:10→20:53)
[2019-07-20] MEDS: Sodium Chloride 1 GM TAB PO SCH ×3 (09:10→20:53)
[2019-07-20] MEDS: Metoprolol Tartrate 25 MG TAB PO SCH ×2 (09:12→20:54)
[2019-07-20] MEDS: Gabapentin 100 MG CAP PO SCH ×2 (09:12→15:22)
[2019-07-20] MEDS: Famotidine 20 MG TAB PO SCH (09:12)
[2019-07-20] MEDS: Insulin Regular 300 UNITS/3 ML VIAL SC PRN ×2 (12:05→16:17)
[2019-07-20] MEDS: HYDROcodone/Acetaminophen 7.5/325 mg Tablet PO PRN ×2 (12:41→22:41)
[2019-07-20] MEDS: Gabapentin 300 MG CAP PO SCH (20:52)
[2019-07-20] MEDS: Atorvastatin Calcium 20 MG TAB PO SCH (20:53)
[2019-07-20] MEDS: Insulin Glargine 20 UNITS in Pre-Filled Syringe 1 EACH SC SCH (20:56)
[2019-07-21 03:26] LABS: #Eosinphils 0.3 thou/uL (0.0-0.7); #Lymphocytes 1.4 thou/uL (1.20-3.40); #Monocytes 1.1 thou/uL (0.11-0.59); #Neutrophils 4.4 thou/uL (1.40-6.50); %Basophils 0.6 % (0.0-1.0); %Eosinophils 4.4 % (0.0-10.0); %Lymphocytes 19.8 % (21.0-51.0); %Monocytes 14.7 % (0.0-10.0); %Neutrophils 60.4 % (42.0-75.0); Hemoglobin 7.3 g/dL (14.0-18.0); Mean Corpuscular HGB CONC 34.8 g/dL (32.0-36.0); Mean Corpuscular Hemoglobin 30.6 pg (27.0-31.0); Mean Corpuscular Volume 88.1 fL (78.0-98.0); Mean Platelet Volume 6.7 fL (7.4-10.4); Platelet Count 224 thou/uL (130-400); RBC Distribution Width 15.3 % (11.5-14.5); Red Blood Cell (RBC) Count 2.37 mill/uL (4.70-6.10); White Blood Cell (WBC) Count 7.2 thou/uL (4.8-10.8)
[2019-07-21 03:47] LABS: INR-International Normal Ratio 2.4; Prothrombin Time 25.8 SEC (12.0-14.7)
[2019-07-21 03:48] LABS: Anion Gap 10 mmol/L (10-20); BUN (Urea Nitrogen) 41 mg/dL (8.4-25.7); Calc. Creatinine Clearance 57 mL/min (70-130); Calcium 8.3 mg/dL (7.8-10.44); Carbon Dioxide 21 mmol/L (23-31); Chloride 105 mmol/L (98-107); Estimated GFR-MDRD 39; Glucose 198 mg/dL (83-110); Potassium 4.3 mmol/L (3.5-5.1); Sodium 132 mmol/L (136-145)
[2019-07-21] MEDS: Ondansetron PF 4 MG/2 ML Vial IVP PRN (03:53)
[2019-07-21] MEDS: Insulin Regular 300 UNITS/3 ML VIAL SC PRN ×4 (05:46→21:50)
[2019-07-21] MEDS: Flecainide 50 MG TAB PO SCH ×2 (08:20→21:50)
[2019-07-21] MEDS: Famotidine 20 MG TAB PO SCH (08:20)
[2019-07-21] MEDS: Gabapentin 100 MG CAP PO SCH ×2 (08:20→16:35)
[2019-07-21] MEDS: Sodium Chloride 1 GM TAB PO SCH ×3 (08:20→21:50)
[2019-07-21] MEDS: Metoprolol Tartrate 25 MG TAB PO SCH ×2 (08:20→21:50)
[2019-07-21] MEDS: Amlodipine 5 MG TAB PO SCH (08:20)
[2019-07-21] MEDS: Insulin Glargine 40 UNITS in Pre-Filled Syringe 1 EACH SC SCH (08:37)
[2019-07-21] MEDS: Cefepime 2 GM in Sodium Chloride 0.9% 100 ML IVPB SCH ×2 (08:38→21:50)
--- NOTE | 2019-07-21 15:29 | PDOC.HOSPP ---
- Subjective Encounter Date: 07/21/19 Encounter Time: 15:27 Subjective: 69 y/o with stage IV colon cancer, DM, Afib, and Hx right osteomyelitis s/p IV abx admitted with fever and supertherapeutic INR. Evaluation of right non healing wound showed osteomyelitis. S/p amputation of R 5th ray with wound vac placement. No new problem. 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 - Objective Vital Signs & Weight: Vital Signs (12 hours) Temp Pulse Resp BP Pulse Ox 07/21/19 08:30 97.8 F 72 20 110/58 L 100 07/21/19 08:20 64 07/21/19 08:00 100 Weight Admit Weight 228 lb 3.2 oz Weight 229 lb I&O: 07/20/19 07/21/19 07/22/19 06:59 06:59 06:59 Intake Total 2595 1990 600 Output Total 1800 3950 1375 Balance 576 -6177 -848 Result Diagrams: 07/21/19 03:15 07/21/19 03:15 Additional Labs: Accuchecks 07/21/19 07/21/19 07/21/19 10:43 05:45 03:47 POC Glucose 204 H 175 H 202 H 07/20/19 07/20/19 20:36 16:12 POC Glucose 223 H 275 H Hospitalist ROS - Medication Medications: Active Medications Generic Name Dose Route Start Last Admin Trade Name Freq PRN Reason Stop Dose Admin Hydrocodone Bitart/Acetaminophen 1 tab 07/12/19 07:29 07/20/19 22:41 [place] 7.5/325 PO 1 tab Q4H PRN Administration Moderate to Severe Pain (6-10) Amlodipine Besylate 5 mg 07/12/19 09:00 07/21/19 08:20 Norvasc PO 5 mg DAILY ANDREA Administration Atorvastatin Calcium 20 mg 07/12/19 21:00 07/20/19 20:53 Lipitor PO 20 mg HS ANDREA Administration Famotidine 20 mg 07/12/19 09:00 07/21/19 08:20 Pepcid PO 20 mg DAILY ANDREA Administration Flecainide Acetate 100 mg 07/12/19 09:00 07/21/19 08:20 Tambocor PO 100 mg BID ANDREA Administration Gabapentin 600 mg 07/12/19 21:00 07/20/19 20:52 Neurontin PO 600 mg HS ANDREA Administration Gabapentin 100 mg 07/12/19 09:00 07/21/19 08:20 Neurontin PO 100 mg 0900,1500 ANDREA Administration Cefepime HCl 2 gm/ Sodium 100 mls @ 200 mls/hr 07/12/19 09:00 07/21/19 08:38 Chloride IVPB 100 mls Q12HR ANDREA Administration Insulin Glargine 20 units/ 0.2 mls @ 0 mls/hr 07/12/19 21:00 07/20/19 20:56 Miscellaneous Medication SC 0.2 mls HS ANDREA Administration Insulin Glargine 40 units/ 0.4 mls @ 0 mls/hr 07/12/19 09:00 07/21/19 08:37 Miscellaneous Medication SC 0.4 mls DAILY ANDREA Administration Insulin Human Regular 0 units 07/12/19 07:31 07/21/19 11:24 Humulin R SC 3 unit .MILD SLIDING SCALE PRN Administration Mild Correctional Scale Insulin Human Regular 0 units 07/12/19 07:31 07/14/19 20:28 Humulin R SC 2 unit .BEDTIME SLIDING SC PRN Administration Bedtime Correctional Scale Metoprolol Tartrate 12.5 mg 07/12/19 09:00 07/21/19 08:20 Lopressor PO 12.5 mg BID ANDREA Administration Ondansetron HCl 4 mg 07/12/19 07:29 07/21/19 03:53 Zofran IVP 4 mg Q6H PRN Administration Nausea/Vomiting Prochlorperazine Maleate 5 mg 07/11/19 22:46 07/15/19 08:29 Compazine PO 5 mg Q6H PRN Administration Nausea/Vomiting Sodium Chloride 10 ml 07/12/19 09:00 07/21/19 08:22 Flush - Normal Saline IVF 10 ml Q12HR ANDREA Administration Sodium Chloride 1 gm 07/20/19 09:00 07/21/19 08:20 Sodium Chloride PO 1 gm TID ANDREA Administration - Exam General Appearance: awake alert Eye: anicteric sclera ENT: normocephalic atraumatic Neck: supple, symmetric Heart: RRR Respiratory: CTAB, no wheezes, no rales, no ronchi, normal chest expansion Gastrointestinal: soft, non-distended, normal bowel sounds Extremities: no cyanosis, no edema Extremities - other findings: Right foot dressing with wound vac Neurological: cranial nerve grossly intact Psychiatric: A&O x 3 Hosp A/P (1) Osteomyelitis of right foot Code(s): M86.9 - OSTEOMYELITIS, UNSPECIFIED Status: Acute (2) MSSA bacteremia Code(s): R78.81 - BACTEREMIA Status: Acute (3) Sepsis Code(s): A41.9 - SEPSIS, UNSPECIFIED ORGANISM Status: Resolved (4) Diabetic foot ulcer Code(s): E11.621 - TYPE 2 DIABETES MELLITUS WITH FOOT ULCER; L97.509 - NON- PRESSURE CHRONIC ULCER OTH PRT UNSP FOOT W UNSP SEVERITY Status: Chronic Qualifiers: Diabetic foot ulcer location: midfoot Laterality: right (5) MSSA (methicillin susceptible Staphylococcus aureus) infection Code(s): A49.01 - METHICILLIN SUSCEP STAPH INFECTION, UNSP SITE Status: Acute (6) Right foot ulcer Code(s): L97.519 - NON-PRS CHRONIC ULCER OTH PRT RIGHT FOOT W UNSP SEVERITY Status: Acute (7) Supratherapeutic INR Code(s): R79.1 - ABNORMAL COAGULATION PROFILE Status: Acute (8) Anemia of chronic disease Code(s): D63.8 - ANEMIA IN OTHER CHRONIC DISEASES CLASSIFIED ELSEWHERE Status : Chronic (9) Atrial fibrillation Code(s): I48.91 - UNSPECIFIED ATRIAL FIBRILLATION Status: Chronic Qualifiers: (10) CKD (chronic kidney disease) stage 3, GFR 30-59 ml/min Code(s): N18.3 - CHRONIC KIDNEY DISEASE, STAGE 3 (MODERATE) Status: Chronic (11) Chronic anticoagulation Code(s): Z79.01 - [facility] (CURRENT) USE OF ANTICOAGULANTS Status: Chronic (12) Diabetes mellitus type 2, insulin dependent Code(s): E11.9 - TYPE 2 DIABETES MELLITUS WITHOUT COMPLICATIONS; Z79.4 - [facility] (CURRENT) USE OF INSULIN Status: Chronic (13) H/O malignant neoplasm of colon Code(s): Z85.038 - PERSONAL HISTORY OF MALIGNANT NEOPLASM OF LARGE INTESTINE Status: Chronic (14) Hypertension Code(s): I10 - ESSENTIAL (PRIMARY) HYPERTENSION Status: Chronic Qualifiers: (15) ESE (obstructive sleep apnea) Code(s): G47.33 - OBSTRUCTIVE SLEEP APNEA (ADULT) (PEDIATRIC) Status: Chronic (16) Acute renal failure superimposed on stage 3 chronic kidney disease Code(s): N17.9 - ACUTE KIDNEY FAILURE, UNSPECIFIED; N18.3 - CHRONIC KIDNEY DISEASE, STAGE 3 (MODERATE) Status: Resolved (17) UTI (urinary tract infection) Status: Resolved - Plan Continue IV cefepime Continue salt tablets and monitor serum sodium. Monitor CBC. Wound care to continue Will need SNF or swing bed for IV antibiotic therapy For discharge once placement is concluded. discussed with case mgt
[2019-07-21] MEDS: Atorvastatin Calcium 20 MG TAB PO SCH (21:50)
[2019-07-21] MEDS: Gabapentin 300 MG CAP PO SCH (21:50)
[2019-07-21] MEDS: Insulin Glargine 20 UNITS in Pre-Filled Syringe 1 EACH SC SCH (21:50)
[2019-07-22 06:15] LABS: #Basophils 0.1 thou/uL (0.0-0.2); #Eosinphils 0.5 thou/uL (0.0-0.7); #Lymphocytes 2.3 thou/uL (1.20-3.40); #Monocytes 1.2 thou/uL (0.11-0.59); #Neutrophils 6.2 thou/uL (1.40-6.50); %Basophils 0.6 % (0.0-1.0); %Eosinophils 4.6 % (0.0-10.0); %Lymphocytes 22.2 % (21.0-51.0); %Neutrophils 60.6 % (42.0-75.0); Hemoglobin 7.8 g/dL (14.0-18.0); Mean Corpuscular HGB CONC 34.9 g/dL (32.0-36.0); Mean Platelet Volume 6.7 fL (7.4-10.4); Platelet Count 260 thou/uL (130-400); RBC Distribution Width 15.9 % (11.5-14.5); Red Blood Cell (RBC) Count 2.51 mill/uL (4.70-6.10); White Blood Cell (WBC) Count 10.3 thou/uL (4.8-10.8)
[2019-07-22 06:19] LABS: INR-International Normal Ratio 1.8; Prothrombin Time 20.9 SEC (12.0-14.7)
[2019-07-22 06:41] LABS: Anion Gap 11 mmol/L (10-20); BUN (Urea Nitrogen) 43 mg/dL (8.4-25.7); Calc. Creatinine Clearance 56 mL/min (70-130); Calcium 9.2 mg/dL (7.8-10.44); Carbon Dioxide 23 mmol/L (23-31); Chloride 105 mmol/L (98-107); Estimated GFR-MDRD 38; Glucose 133 mg/dL (83-110); Potassium 4.5 mmol/L (3.5-5.1); Sodium 134 mmol/L (136-145)
--- NOTE | 2019-07-22 07:52 | PDOC.HOSPP ---
- Subjective Encounter Date: 07/22/19 Encounter Time: 07:51 Subjective: 69 y/o with stage IV colon cancer, DM, Afib, and Hx right osteomyelitis s/p IV abx admitted with fever and supertherapeutic INR. Evaluation of right non healing wound showed osteomyelitis. S/p amputation of R 5th ray with wound vac placement. 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 For discharge once SNF arrangement is concluded - Objective Vital Signs & Weight: Weight Admit Weight 228 lb 3.2 oz Weight 229 lb I&O: 07/21/19 07/22/19 07/23/19 06:59 06:59 06:59 Intake Total 1989 1079 Output Total 2985 7748 Balance -1250 -1051 Result Diagrams: 07/22/19 06:00 07/22/19 06:00 Additional Labs: Accuchecks 07/21/19 07/21/19 07/21/19 20:51 16:27 10:43 POC Glucose 243 H 191 H 204 H Hospitalist ROS - Medication Medications: Active Medications Generic Name Dose Route Start Last Admin Trade Name Jaquelin PRN Reason Stop Dose Admin Amlodipine Besylate 5 mg 07/12/19 09:00 07/21/19 08:20 Norvasc PO 5 mg DAILY ANDREA Administration Atorvastatin Calcium 20 mg 07/12/19 21:00 07/21/19 21:50 Lipitor PO 20 mg HS ANDREA Administration Famotidine 20 mg 07/12/19 09:00 07/21/19 08:20 Pepcid PO 20 mg DAILY ANDREA Administration Flecainide Acetate 100 mg 07/12/19 09:00 07/21/19 21:50 Tambocor PO 100 mg BID ANDREA Administration Gabapentin 600 mg 07/12/19 21:00 07/21/19 21:50 Neurontin PO 600 mg HS ANDREA Administration Gabapentin 100 mg 07/12/19 09:00 07/21/19 16:35 Neurontin PO 100 mg 0900,1500 ANDREA Administration Cefepime HCl 2 gm/ Sodium 100 mls @ 200 mls/hr 07/12/19 09:00 07/21/19 21:50 Chloride IVPB 100 mls Q12HR ANDREA Administration Insulin Glargine 20 units/ 0.2 mls @ 0 mls/hr 07/12/19 21:00 07/21/19 21:50 Miscellaneous Medication SC 0.2 mls HS ANDREA Administration Insulin Glargine 40 units/ 0.4 mls @ 0 mls/hr 07/12/19 09:00 07/21/19 08:37 Miscellaneous Medication SC 0.4 mls DAILY ANDREA Administration Insulin Human Regular 0 units 07/12/19 07:31 07/21/19 16:33 Humulin R SC 2 unit .MILD SLIDING SCALE PRN Administration Mild Correctional Scale Insulin Human Regular 0 units 07/12/19 07:31 07/21/19 21:50 Humulin R SC 2 unit .BEDTIME SLIDING SC PRN Administration Bedtime Correctional Scale Metoprolol Tartrate 12.5 mg 07/12/19 09:00 07/21/19 21:50 Lopressor PO 12.5 mg BID ANDREA Administration Ondansetron HCl 4 mg 07/12/19 07:29 07/22/19 06:41 Zofran Odt PO 4 mg Q6H PRN Administration Nausea/Vomiting Ondansetron HCl 4 mg 07/12/19 07:29 07/21/19 03:53 Zofran IVP 4 mg Q6H PRN Administration Nausea/Vomiting Prochlorperazine Maleate 5 mg 07/11/19 22:46 07/15/19 08:29 Compazine PO 5 mg Q6H PRN Administration Nausea/Vomiting Sodium Chloride 10 ml 07/12/19 09:00 07/21/19 21:50 Flush - Normal Saline IVF 10 ml Q12HR ANDREA Administration Sodium Chloride 1 gm 07/20/19 09:00 07/21/19 21:50 Sodium Chloride PO 1 gm TID ANDREA Administration - Exam General Appearance: awake alert Eye: anicteric sclera ENT: normocephalic atraumatic Neck: symmetric, no JVD Heart: RRR Respiratory: no wheezes, no rales, no ronchi, normal chest expansion Gastrointestinal: soft, non-tender, non-distended, normal bowel sounds Extremities: no cyanosis, no edema Extremities - other findings: Right foot dressing and wound vac noted Neurological: cranial nerve grossly intact, no focal deficits Psychiatric: A&O x 3 Hosp A/P (1) Osteomyelitis of right foot Code(s): M86.9 - OSTEOMYELITIS, UNSPECIFIED Status: Acute (2) MSSA bacteremia Code(s): R78.81 - BACTEREMIA Status: Acute (3) Sepsis Code(s): A41.9 - SEPSIS, UNSPECIFIED ORGANISM Status: Resolved (4) Diabetic foot ulcer Code(s): E11.621 - TYPE 2 DIABETES MELLITUS WITH FOOT ULCER; L97.509 - NON- PRESSURE CHRONIC ULCER OTH PRT UNSP FOOT W UNSP SEVERITY Status: Chronic Qualifiers: Diabetic foot ulcer location: midfoot Laterality: right (5) MSSA (methicillin susceptible Staphylococcus aureus) infection Code(s): A49.01 - METHICILLIN SUSCEP STAPH INFECTION, UNSP SITE Status: Acute (6) Right foot ulcer Code(s): L97.519 - NON-PRS CHRONIC ULCER OTH PRT RIGHT FOOT W UNSP SEVERITY Status: Acute (7) Supratherapeutic INR Code(s): R79.1 - ABNORMAL COAGULATION PROFILE Status: Acute (8) Anemia of chronic disease Code(s): D63.8 - ANEMIA IN OTHER CHRONIC DISEASES CLASSIFIED ELSEWHERE Status : Chronic (9) Atrial fibrillation Code(s): I48.91 - UNSPECIFIED ATRIAL FIBRILLATION Status: Chronic Qualifiers: (10) CKD (chronic kidney disease) stage 3, GFR 30-59 ml/min Code(s): N18.3 - CHRONIC KIDNEY DISEASE, STAGE 3 (MODERATE) Status: Chronic (11) Chronic anticoagulation Code(s): Z79.01 - [facility]UR[facility] (CURRENT) USE OF ANTICOAGULANTS Status: Chronic (12) Diabetes mellitus type 2, insulin dependent Code(s): E11.9 - TYPE 2 DIABETES MELLITUS WITHOUT COMPLICATIONS; 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 Status: Chronic (13) H/O malignant neoplasm of colon Code(s): Z85.038 - PERSONAL HISTORY OF MALIGNANT NEOPLASM OF LARGE INTESTINE Status: Chronic (14) Hypertension Code(s): I10 - ESSENTIAL (PRIMARY) HYPERTENSION Status: Chronic Qualifiers: (15) ESE (obstructive sleep apnea) Code(s): G47.33 - OBSTRUCTIVE SLEEP APNEA (ADULT) (PEDIATRIC) Status: Chronic (16) Acute renal failure superimposed on stage 3 chronic kidney disease Code(s): N17.9 - ACUTE KIDNEY FAILURE, UNSPECIFIED; N18.3 - CHRONIC KIDNEY DISEASE, STAGE 3 (MODERATE) Status: Resolved (17) UTI (urinary tract infection) Status: Resolved - Plan Restart coumadin at a lower dose of 4 mg daily Continue IV cefepime Continue salt tablets and monitor serum sodium. Wound care to continue Await SNF or swing bed arrangement for IV antibiotic therapy For discharge once placement is concluded. Follow CBC, serum sodium and INR
[2019-07-22] MEDS: Cefepime 2 GM in Sodium Chloride 0.9% 100 ML IVPB SCH (08:45)
[2019-07-22] MEDS: Sodium Chloride 1 GM TAB PO SCH ×3 (08:45→20:12)
[2019-07-22] MEDS: Amlodipine 5 MG TAB PO SCH (08:46)
[2019-07-22] MEDS: Flecainide 50 MG TAB PO SCH ×2 (08:46→20:12)
[2019-07-22] MEDS: Gabapentin 100 MG CAP PO SCH ×2 (08:46→15:27)
[2019-07-22] MEDS: Famotidine 20 MG TAB PO SCH (08:46)
[2019-07-22] MEDS: Metoprolol Tartrate 25 MG TAB PO SCH ×2 (08:47→20:12)
[2019-07-22] MEDS: Insulin Glargine 40 UNITS in Pre-Filled Syringe 1 EACH SC SCH (08:55)
[2019-07-22] MEDS: Ondansetron PF 4 MG/2 ML Vial IVP PRN (09:57)
[2019-07-22] MEDS: Insulin Regular 300 UNITS/3 ML VIAL SC PRN ×2 (12:43→16:48)
[2019-07-22] MEDS: Warfarin Sodium 2 MG TAB PO SCH (16:49)
[2019-07-22] MEDS: Atorvastatin Calcium 20 MG TAB PO SCH (20:12)
[2019-07-22] MEDS: Gabapentin 300 MG CAP PO SCH (20:12)
[2019-07-22] MEDS: Insulin Glargine 20 UNITS in Pre-Filled Syringe 1 EACH SC SCH (20:13)
[2019-07-23 04:40] LABS: INR-International Normal Ratio 1.6; Prothrombin Time 18.9 SEC (12.0-14.7)
[2019-07-23 05:24] LABS: #Basophils 0.1 thou/uL (0.0-0.2); #Eosinphils 0.5 thou/uL (0.0-0.7); #Lymphocytes 2.1 thou/uL (1.20-3.40); #Neutrophils 4.9 thou/uL (1.40-6.50); %Basophils 1.3 % (0.0-1.0); %Eosinophils 5.7 % (0.0-10.0); %Lymphocytes 24.4 % (21.0-51.0); %Monocytes 11.6 % (0.0-10.0); Anion Gap 11 mmol/L (10-20); BUN (Urea Nitrogen) 39 mg/dL (8.4-25.7); Calc. Creatinine Clearance 58 mL/min (70-130); Calcium 9.1 mg/dL (7.8-10.44); Carbon Dioxide 23 mmol/L (23-31); Chloride 105 mmol/L (98-107); Estimated GFR-MDRD 39; Glucose 129 mg/dL (83-110); Hemoglobin 7.5 g/dL (14.0-18.0); Mean Corpuscular HGB CONC 35.2 g/dL (32.0-36.0); Mean Corpuscular Hemoglobin 31.4 pg (27.0-31.0); Mean Corpuscular Volume 89.1 fL (78.0-98.0); Mean Platelet Volume 6.8 fL (7.4-10.4); Platelet Count 249 thou/uL (130-400); Potassium 4.3 mmol/L (3.5-5.1); RBC Distribution Width 16.6 % (11.5-14.5); Sodium 135 mmol/L (136-145); White Blood Cell (WBC) Count 8.7 thou/uL (4.8-10.8)
[2019-07-23] MEDS: Cefepime 2 GM in Sodium Chloride 0.9% 100 ML IVPB SCH ×2 (08:52→20:10)
[2019-07-23] MEDS: Flecainide 50 MG TAB PO SCH ×2 (08:52→20:10)
[2019-07-23] MEDS: Sodium Chloride 1 GM TAB PO SCH ×3 (08:53→20:09)
[2019-07-23] MEDS: Gabapentin 100 MG CAP PO SCH ×2 (08:53→14:32)
[2019-07-23] MEDS: Amlodipine 5 MG TAB PO SCH (08:53)
[2019-07-23] MEDS: Metoprolol Tartrate 25 MG TAB PO SCH ×2 (08:54→20:10)
[2019-07-23] MEDS: Famotidine 20 MG TAB PO SCH (08:54)
[2019-07-23] MEDS: Insulin Glargine 40 UNITS in Pre-Filled Syringe 1 EACH SC SCH (08:56)
[2019-07-23] MEDS ORDERED: HYDROcodone/Acetaminophen 7.5/325 mg Tablet PO PRN (10:42)
[2019-07-23] MEDS: Insulin Regular 300 UNITS/3 ML VIAL SC PRN ×2 (11:28→16:58)
--- NOTE | 2019-07-23 14:58 | PDOC.HOSPP ---
- Subjective Subjective: Seen and examined. Patient tells me he thinks he is going to be transferred to rehabilitation facility today. Case discussed with case management who states that we are still pending insurance approval. Patient with wound VAC in place which dressing was changed today. Patient breathing well on room air. No other acute complaints or problems at this time. - Objective Vital Signs & Weight: Vital Signs (12 hours) Temp Pulse Pulse Pulse Resp BP BP 07/23/19 11:12 70 64 117/69 07/23/19 08:53 60 114/76 07/23/19 08:00 97.5 F L 60 18 BP BP Pulse Ox 07/23/19 11:12 132/62 07/23/19 08:53 07/23/19 08:00 114/56 L 99 Weight Admit Weight 228 lb 3.2 oz Weight 229 lb I&O: 07/22/19 07/23/19 07/24/19 06:59 06:59 06:59 Intake Total 1080 1440 Output Total 5550 1125 1600 Balance -4470 315 -1600 Result Diagrams: 07/23/19 03:58 07/23/19 03:58 Additional Labs: Accuchecks 07/23/19 07/23/19 07/22/19 11:04 03:45 20:11 POC Glucose 194 H 136 H 232 H 07/22/19 07/22/19 15:46 05:57 POC Glucose 216 H 144 H Hospitalist ROS - Review of Systems All other systems reviewed; all pertinent +/- noted in HPI/Subj - Medication Medications: Active Medications Generic Name Dose Route Start Last Admin Trade Name Nainq PRN Reason Stop Dose Admin Amlodipine Besylate 5 mg 07/12/19 09:00 07/23/19 08:53 Norvasc PO 5 mg DAILY ANDREA Administration Atorvastatin Calcium 20 mg 07/12/19 21:00 07/22/19 20:12 Lipitor PO 20 mg HS ANDREA Administration Famotidine 20 mg 07/12/19 09:00 07/23/19 08:54 Pepcid PO 20 mg DAILY ANDREA Administration Flecainide Acetate 100 mg 07/23/19 09:00 07/23/19 08:52 Tambocor PO 100 mg BID ANDREA Administration Gabapentin 600 mg 07/12/19 21:00 07/22/19 20:12 Neurontin PO 600 mg HS ANDREA Administration Gabapentin 100 mg 07/12/19 09:00 07/23/19 14:32 Neurontin PO 100 mg 0900,1500 ANDREA Administration Insulin Glargine 20 units/ 0.2 mls @ 0 mls/hr 07/12/19 21:00 07/22/19 20:13 Miscellaneous Medication SC 0.2 mls HS ANDREA Administration Insulin Glargine 40 units/ 0.4 mls @ 0 mls/hr 07/12/19 09:00 07/23/19 08:56 Miscellaneous Medication SC 0.4 mls DAILY ANDREA Administration Cefepime HCl 2 gm/ Sodium 100 mls @ 200 mls/hr 07/23/19 09:00 07/23/19 08:52 Chloride IVPB 100 mls Q12HR ANDREA Administration Insulin Human Regular 0 units 07/12/19 07:31 07/23/19 11:28 Humulin R SC 2 unit .MILD SLIDING SCALE PRN Administration Mild Correctional Scale Insulin Human Regular 0 units 07/12/19 07:31 07/21/19 21:50 Humulin R SC 2 unit .BEDTIME SLIDING SC PRN Administration Bedtime Correctional Scale Metoprolol Tartrate 12.5 mg 07/12/19 09:00 07/23/19 08:54 Lopressor PO 12.5 mg BID ANDREA Administration Ondansetron HCl 4 mg 07/12/19 07:29 07/22/19 06:41 Zofran Odt PO 4 mg Q6H PRN Administration Nausea/Vomiting Ondansetron HCl 4 mg 07/12/19 07:29 07/22/19 09:57 Zofran IVP 4 mg Q6H PRN Administration Nausea/Vomiting Prochlorperazine Maleate 5 mg 07/11/19 22:46 07/15/19 08:29 Compazine PO 5 mg Q6H PRN Administration Nausea/Vomiting Senna/Docusate Sodium 2 tab 07/12/19 07:29 07/23/19 08:53 Senokot S PO 2 tab BID PRN Administration Constipation Sodium Chloride 10 ml 07/12/19 09:00 07/23/19 08:57 Flush - Normal Saline IVF 10 ml Q12HR ANDREA Administration Sodium Chloride 10 ml 07/12/19 07:49 07/22/19 10:02 Flush - Normal Saline IVF 10 ml PRN PRN Administration Saline Flush Sodium Chloride 1 gm 07/20/19 09:00 07/23/19 14:32 Sodium Chloride PO 1 gm TID ANDREA Administration Warfarin Sodium 4 mg 07/22/19 17:00 07/22/19 16:49 Coumadin PO 4 mg 1700 ANDREA Administration - Exam General Appearance: NAD, awake alert Eye: anicteric sclera ENT: no oropharyngeal lesions, moist mucosa Neck: supple, symmetric Heart: no murmur, no gallops, no rubs Respiratory: no wheezes, no rales, no ronchi Gastrointestinal: non-tender, non-distended, no guarding, no rigidity Extremities: 1+ LE edema Skin - other findings: Foot wound vac in place - see wound care pictures Neurological: cranial nerve grossly intact Musculoskeletal: generalized weakness Psychiatric: normal affect, A&O x 3 Hosp A/P (1) UTI (urinary tract infection) Status: Resolved (2) Sepsis Code(s): A41.9 - SEPSIS, UNSPECIFIED ORGANISM Status: Resolved (3) H/O malignant neoplasm of colon Code(s): Z85.038 - PERSONAL HISTORY OF MALIGNANT NEOPLASM OF LARGE INTESTINE Status: Chronic (4) Atrial fibrillation Code(s): I48.91 - UNSPECIFIED ATRIAL FIBRILLATION Status: Chronic Qualifiers: (5) CKD (chronic kidney disease) stage 3, GFR 30-59 ml/min Code(s): N18.3 - CHRONIC KIDNEY DISEASE, STAGE 3 (MODERATE) Status: Chronic (6) Chronic anticoagulation Code(s): Z79.01 - [facility] (CURRENT) USE OF ANTICOAGULANTS Status: Chronic (7) Diabetes mellitus type 2, insulin dependent Code(s): E11.9 - TYPE 2 DIABETES MELLITUS WITHOUT COMPLICATIONS; 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 Status: Chronic (8) Diabetes type 2, uncontrolled Code(s): E11.65 - TYPE 2 DIABETES MELLITUS WITH HYPERGLYCEMIA Status: Chronic (9) Diabetic foot ulcer Code(s): E11.621 - TYPE 2 DIABETES MELLITUS WITH FOOT ULCER; L97.509 - NON- PRESSURE CHRONIC ULCER OTH PRT UNSP FOOT W UNSP SEVERITY Status: Chronic Qualifiers: Diabetic foot ulcer location: midfoot Laterality: right (10) Hypertension Code(s): I10 - ESSENTIAL (PRIMARY) HYPERTENSION Status: Chronic Qualifiers: (11) ESE (obstructive sleep apnea) Code(s): G47.33 - OBSTRUCTIVE SLEEP APNEA (ADULT) (PEDIATRIC) Status: Chronic (12) Obesity (BMI 30-39.9) Code(s): E66.9 - OBESITY, UNSPECIFIED Status: Chronic (13) Cellulitis of foot Code(s): L03.119 - CELLULITIS OF UNSPECIFIED PART OF LIMB Status: Resolved - Plan Medical/oncology unit oncology consultation, recommendations appreciated infectious disease consultation, recommendations appreciated broad-spectrum antibiotics, selected per ID will need extended coverage cultures noted continue Coumadin daily INR long-term prognosis for metastatic cancer is guarded, complicated by uncontrolled diabetes mellitus with osteomyelitis and wound VAC in place G.I. in DVT prophylaxis patient desires to be a full code and wishes all aggressive measures Pending D/c to lower level of care, pending insurance approval
[2019-07-23] MEDS: Warfarin Sodium 2 MG TAB PO SCH (16:59)
[2019-07-23] MEDS: Gabapentin 300 MG CAP PO SCH (20:09)
[2019-07-23] MEDS: Insulin Glargine 20 UNITS in Pre-Filled Syringe 1 EACH SC SCH (20:10)
[2019-07-23] MEDS: Atorvastatin Calcium 20 MG TAB PO SCH (20:10)
[2019-07-24 05:19] LABS: #Basophils 0.1 thou/uL (0.0-0.2); #Eosinphils 0.3 thou/uL (0.0-0.7); #Lymphocytes 1.6 thou/uL (1.20-3.40); #Monocytes 0.9 thou/uL (0.11-0.59); #Neutrophils 5.3 thou/uL (1.40-6.50); %Eosinophils 4.2 % (0.0-10.0); %Lymphocytes 19.8 % (21.0-51.0); %Monocytes 11.1 % (0.0-10.0); %Neutrophils 63.9 % (42.0-75.0); Hemoglobin 8.7 g/dL (14.0-18.0); Mean Corpuscular Hemoglobin 31.4 pg (27.0-31.0); Mean Corpuscular Volume 89.5 fL (78.0-98.0); Mean Platelet Volume 6.6 fL (7.4-10.4); Platelet Count 206 thou/uL (130-400); RBC Distribution Width 16.8 % (11.5-14.5); Red Blood Cell (RBC) Count 2.78 mill/uL (4.70-6.10); White Blood Cell (WBC) Count 8.2 thou/uL (4.8-10.8)
[2019-07-24 05:25] LABS: INR-International Normal Ratio 1.8; Prothrombin Time 20.7 SEC (12.0-14.7)
[2019-07-24 05:42] LABS: Anion Gap 11 mmol/L (10-20); BUN (Urea Nitrogen) 41 mg/dL (8.4-25.7); Calc. Creatinine Clearance 58 mL/min (70-130); Carbon Dioxide 23 mmol/L (23-31); Chloride 105 mmol/L (98-107); Estimated GFR-MDRD 40; Glucose 137 mg/dL (83-110); Potassium 4.5 mmol/L (3.5-5.1); Sodium 134 mmol/L (136-145)
[2019-07-24] MEDS: Metoprolol Tartrate 25 MG TAB PO SCH ×2 (09:02→20:32)
[2019-07-24] MEDS: Amlodipine 5 MG TAB PO SCH (09:02)
[2019-07-24] MEDS: Cefepime 2 GM in Sodium Chloride 0.9% 100 ML IVPB SCH ×2 (09:02→20:30)
[2019-07-24] MEDS: Famotidine 20 MG TAB PO SCH (09:02)
[2019-07-24] MEDS: Gabapentin 100 MG CAP PO SCH ×2 (09:02→16:15)
[2019-07-24] MEDS: Sodium Chloride 1 GM TAB PO SCH ×3 (09:02→20:31)
[2019-07-24] MEDS: Flecainide 50 MG TAB PO SCH ×2 (09:03→20:32)
[2019-07-24] MEDS: Insulin Glargine 40 UNITS in Pre-Filled Syringe 1 EACH SC SCH (09:03)
--- NOTE | 2019-07-24 11:07 | PDOC.HOSPP ---
- Subjective Subjective: Patient seen and examined. Clinically doing well. Breathing well on room air. No acute overnights or acute complaints at this time. Pending insurance approval for rehab placement. - Objective Vital Signs & Weight: Vital Signs (12 hours) Pulse 07/24/19 09:02 67 Weight Admit Weight 228 lb 3.2 oz Weight 229 lb I&O: 07/23/19 07/24/19 07/25/19 06:59 06:59 06:59 Intake Total 1440 800 Output Total 1125 3200 Balance 315 -2400 Result Diagrams: 07/24/19 05:09 07/24/19 05:09 Additional Labs: Accuchecks 07/23/19 07/23/19 07/23/19 20:15 15:52 11:04 POC Glucose 237 H 222 H 194 H Hospitalist ROS - Review of Systems All other systems reviewed; all pertinent +/- noted in HPI/Subj - Medication Medications: Active Medications Generic Name Dose Route Start Last Admin Trade Name Freq PRN Reason Stop Dose Admin Amlodipine Besylate 5 mg 07/12/19 09:00 07/24/19 09:02 Norvasc PO 5 mg DAILY ANDREA Administration Atorvastatin Calcium 20 mg 07/12/19 21:00 07/23/19 20:10 Lipitor PO 20 mg HS ANDREA Administration Famotidine 20 mg 07/12/19 09:00 07/24/19 09:02 Pepcid PO 20 mg DAILY ANDREA Administration Flecainide Acetate 100 mg 07/23/19 09:00 07/24/19 09:03 Tambocor PO 100 mg BID ANDREA Administration Gabapentin 600 mg 07/12/19 21:00 07/23/19 20:09 Neurontin PO 600 mg HS ANDREA Administration Gabapentin 100 mg 07/12/19 09:00 07/24/19 09:02 Neurontin PO 100 mg 0900,1500 ANDREA Administration Insulin Glargine 20 units/ 0.2 mls @ 0 mls/hr 07/12/19 21:00 07/23/19 20:10 Miscellaneous Medication SC 0.2 mls HS ANDREA Administration Insulin Glargine 40 units/ 0.4 mls @ 0 mls/hr 07/12/19 09:00 07/24/19 09:03 Miscellaneous Medication SC 0.4 mls DAILY ANDREA Administration Cefepime HCl 2 gm/ Sodium 100 mls @ 200 mls/hr 07/23/19 09:00 07/24/19 09:02 Chloride IVPB 100 mls Q12HR ANDREA Administration Insulin Human Regular 0 units 07/12/19 07:31 07/23/19 16:58 Humulin R SC 3 unit .MILD SLIDING SCALE PRN Administration Mild Correctional Scale Insulin Human Regular 0 units 07/12/19 07:31 07/21/19 21:50 Humulin R SC 2 unit .BEDTIME SLIDING SC PRN Administration Bedtime Correctional Scale Metoprolol Tartrate 12.5 mg 07/12/19 09:00 07/24/19 09:02 Lopressor PO 12.5 mg BID ANDREA Administration Ondansetron HCl 4 mg 07/12/19 07:29 07/22/19 06:41 Zofran Odt PO 4 mg Q6H PRN Administration Nausea/Vomiting Ondansetron HCl 4 mg 07/12/19 07:29 07/22/19 09:57 Zofran IVP 4 mg Q6H PRN Administration Nausea/Vomiting Prochlorperazine Maleate 5 mg 07/11/19 22:46 07/15/19 08:29 Compazine PO 5 mg Q6H PRN Administration Nausea/Vomiting Senna/Docusate Sodium 2 tab 07/12/19 07:29 07/23/19 08:53 Senokot S PO 2 tab BID PRN Administration Constipation Sodium Chloride 10 ml 07/12/19 09:00 07/24/19 09:03 Flush - Normal Saline IVF 10 ml Q12HR ANDREA Administration Sodium Chloride 10 ml 07/12/19 07:49 07/22/19 10:02 Flush - Normal Saline IVF 10 ml PRN PRN Administration Saline Flush Sodium Chloride 1 gm 07/20/19 09:00 07/24/19 09:02 Sodium Chloride PO 1 gm TID ANDREA Administration Warfarin Sodium 4 mg 07/22/19 17:00 07/23/19 16:59 Coumadin PO 4 mg 1700 ANDREA Administration - Exam General Appearance: NAD, awake alert Eye: anicteric sclera ENT: no oropharyngeal lesions, moist mucosa Neck: supple, symmetric, no lymphadenopathy Heart: no murmur, no gallops, normal peripheral pulses Respiratory: no wheezes, no rales, no ronchi, normal chest expansion Gastrointestinal: soft, non-tender, no bruit, no guarding, no rigidity Extremities: no edema Skin: no lesions, no rashes Skin - other findings: Wound vac present LE, see pictures for details Neurological: cranial nerve grossly intact, normal sensation to touch, no focal deficits Musculoskeletal: generalized weakness Psychiatric: normal affect, A&O x 3 Hosp A/P (1) UTI (urinary tract infection) Status: Resolved (2) Sepsis Code(s): A41.9 - SEPSIS, UNSPECIFIED ORGANISM Status: Resolved (3) H/O malignant neoplasm of colon Code(s): Z85.038 - PERSONAL HISTORY OF MALIGNANT NEOPLASM OF LARGE INTESTINE Status: Chronic (4) Atrial fibrillation Code(s): I48.91 - UNSPECIFIED ATRIAL FIBRILLATION Status: Chronic Qualifiers: (5) CKD (chronic kidney disease) stage 3, GFR 30-59 ml/min Code(s): N18.3 - CHRONIC KIDNEY DISEASE, STAGE 3 (MODERATE) Status: Chronic (6) Chronic anticoagulation Code(s): Z79.01 - [facility] (CURRENT) USE OF ANTICOAGULANTS Status: Chronic (7) Diabetes mellitus type 2, insulin dependent Code(s): E11.9 - TYPE 2 DIABETES MELLITUS WITHOUT COMPLICATIONS; 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 Status: Chronic (8) Diabetes type 2, uncontrolled Code(s): E11.65 - TYPE 2 DIABETES MELLITUS WITH HYPERGLYCEMIA Status: Chronic (9) Diabetic foot ulcer Code(s): E11.621 - TYPE 2 DIABETES MELLITUS WITH FOOT ULCER; L97.509 - NON- PRESSURE CHRONIC ULCER OTH PRT UNSP FOOT W UNSP SEVERITY Status: Chronic Qualifiers: Diabetic foot ulcer location: midfoot Laterality: right (10) Hypertension Code(s): I10 - ESSENTIAL (PRIMARY) HYPERTENSION Status: Chronic Qualifiers: (11) ESE (obstructive sleep apnea) Code(s): G47.33 - OBSTRUCTIVE SLEEP APNEA (ADULT) (PEDIATRIC) Status: Chronic (12) Obesity (BMI 30-39.9) Code(s): E66.9 - OBESITY, UNSPECIFIED Status: Chronic (13) Cellulitis of foot Code(s): L03.119 - CELLULITIS OF UNSPECIFIED PART OF LIMB Status: Resolved - Plan Medical/oncology unit Pending D/c to lower level of care, need insurance approval oncology consultation, recommendations appreciated infectious disease consultation, recommendations appreciated broad-spectrum antibiotics, selected per ID will need extended coverage cultures noted continue Coumadin daily INR long-term prognosis for metastatic cancer is guarded, complicated by uncontrolled diabetes mellitus with osteomyelitis LE and wound VAC in place G.I. in DVT prophylaxis patient desires to be a full code and wishes all aggressive measures
[2019-07-24] MEDS: Insulin Regular 300 UNITS/3 ML VIAL SC PRN (12:10)
[2019-07-24] MEDS: Warfarin Sodium 2 MG TAB PO SCH (16:15)
[2019-07-24] MEDS: Insulin Glargine 20 UNITS in Pre-Filled Syringe 1 EACH SC SCH (20:29)
[2019-07-24] MEDS: Atorvastatin Calcium 20 MG TAB PO SCH (20:31)
[2019-07-24] MEDS: Gabapentin 300 MG CAP PO SCH (20:31)
[2019-07-25 06:12] LABS: #Basophils 0.1 thou/uL (0.0-0.2); #Eosinphils 0.4 thou/uL (0.0-0.7); #Lymphocytes 1.6 thou/uL (1.20-3.40); #Monocytes 0.9 thou/uL (0.11-0.59); #Neutrophils 4.6 thou/uL (1.40-6.50); %Eosinophils 4.8 % (0.0-10.0); %Lymphocytes 20.9 % (21.0-51.0); %Monocytes 12.3 % (0.0-10.0); Hemoglobin 7.4 g/dL (14.0-18.0); Mean Corpuscular HGB CONC 34.5 g/dL (32.0-36.0); Mean Corpuscular Hemoglobin 31.2 pg (27.0-31.0); Mean Corpuscular Volume 90.5 fL (78.0-98.0); Mean Platelet Volume 6.9 fL (7.4-10.4); Platelet Count 219 thou/uL (130-400); RBC Distribution Width 17.2 % (11.5-14.5); Red Blood Cell (RBC) Count 2.37 mill/uL (4.70-6.10); White Blood Cell (WBC) Count 7.5 thou/uL (4.8-10.8)
[2019-07-25 06:17] LABS: Prothrombin Time 22.2 SEC (12.0-14.7)
[2019-07-25 06:54] LABS: Anion Gap 11 mmol/L (10-20); BUN (Urea Nitrogen) 40 mg/dL (8.4-25.7); Calc. Creatinine Clearance 54 mL/min (70-130); Calcium 8.9 mg/dL (7.8-10.44); Carbon Dioxide 23 mmol/L (23-31); Chloride 106 mmol/L (98-107); Estimated GFR-MDRD 36; Glucose 149 mg/dL (83-110); Potassium 4.6 mmol/L (3.5-5.1); Sodium 135 mmol/L (136-145)
[2019-07-25 08:10] VITALS: TEMP 97.7
[2019-07-25] MEDS: Flecainide 50 MG TAB PO SCH (09:46)
[2019-07-25] MEDS: Insulin Glargine 40 UNITS in Pre-Filled Syringe 1 EACH SC SCH (09:46)
[2019-07-25] MEDS: Amlodipine 5 MG TAB PO SCH (09:47)
[2019-07-25] MEDS: Metoprolol Tartrate 25 MG TAB PO SCH (09:48)
[2019-07-25] MEDS: Sodium Chloride 1 GM TAB PO SCH ×2 (09:48→14:18)
[2019-07-25] MEDS: Famotidine 20 MG TAB PO SCH (09:48)
[2019-07-25] MEDS: Gabapentin 100 MG CAP PO SCH ×2 (09:48→14:18)
[2019-07-25] MEDS: Cefepime 2 GM in Sodium Chloride 0.9% 100 ML IVPB SCH (09:50)
[2019-07-25 10:06] VITALS: BP 128/60
[2019-07-25] MEDS: Insulin Regular 300 UNITS/3 ML VIAL SC PRN (11:08)
--- NOTE | 2019-07-25 13:17 | PDOC.HOSPP ---
- Subjective Encounter Date: 07/25/19 Encounter Time: 07:15 Subjective: Patient seen and examined. No new complaints. No overnight events - Objective Vital Signs & Weight: Vital Signs (12 hours) Temp Pulse Resp BP BP BP BP 07/25/19 09:47 60 128/60 07/25/19 08:00 97.7 F 60 16 89/50 L 87/51 L 109/58 L Pulse Ox 07/25/19 09:47 07/25/19 08:00 96 Weight Admit Weight 228 lb 3.2 oz Weight 229 lb I&O: 07/24/19 07/25/19 07/26/19 06:59 06:59 06:59 Intake Total 800 100 Output Total 3200 3906 Balance -2400 -4254 Result Diagrams: 07/25/19 05:45 07/25/19 05:45 Additional Labs: Accuchecks 07/25/19 07/24/19 07/24/19 11:06 20:21 16:21 POC Glucose 217 H 198 H 162 H Hospitalist ROS - Review of Systems Eyes: denies: pain, vision change, conjunctivae inflammation, eyelid inflammation, redness, other ENT: denies: ear pain, ear discharge, nose pain, nose discharge, nose congestion , mouth pain, mouth swelling, throat pain, throat swelling, other Respiratory: denies: cough, dry, shortness of breath, hemoptysis, SOB with excertion, pleuritic pain, sputum, wheezing, other Cardiovascular: denies: chest pain, palpitations, orthopnea, paroxysmal noc. dyspnea, edema, light headedness, other Gastrointestinal: denies: nausea, vomiting, abdominal pain, diarrhea, constipation, melena, hematochezia, other Genitourinary: denies: dysuria, frequency, incontinence, hematuria, retention, other Musculoskeletal: denies: neck pain, shoulder pain, arm pain, back pain, hand pain, leg pain, foot pain, other Skin: denies: rash, lesions, david, bruising, other - Medication Medications: Active Medications Generic Name Dose Route Start Last Admin Trade Name Freq PRN Reason Stop Dose Admin Amlodipine Besylate 5 mg 07/12/19 09:00 07/25/19 09:47 Norvasc PO 5 mg DAILY ANDREA Administration Atorvastatin Calcium 20 mg 07/12/19 21:00 07/24/19 20:31 Lipitor PO 20 mg HS ANDREA Administration Famotidine 20 mg 07/12/19 09:00 07/25/19 09:48 Pepcid PO 20 mg DAILY ANDREA Administration Flecainide Acetate 100 mg 07/23/19 09:00 07/25/19 09:46 Tambocor PO 100 mg BID ANDREA Administration Gabapentin 600 mg 07/12/19 21:00 07/24/19 20:31 Neurontin PO 600 mg HS ANDREA Administration Gabapentin 100 mg 07/12/19 09:00 07/25/19 09:48 Neurontin PO 100 mg 0900,1500 ANDREA Administration Insulin Glargine 20 units/ 0.2 mls @ 0 mls/hr 07/12/19 21:00 07/24/19 20:29 Miscellaneous Medication SC 0.2 mls HS ANDREA Administration Insulin Glargine 40 units/ 0.4 mls @ 0 mls/hr 07/12/19 09:00 07/25/19 09:46 Miscellaneous Medication SC 0.4 mls DAILY ANDREA Administration Cefepime HCl 2 gm/ Sodium 100 mls @ 200 mls/hr 07/23/19 09:00 07/25/19 09:50 Chloride IVPB 100 mls Q12HR ANDREA Administration Insulin Human Regular 0 units 07/12/19 07:31 07/25/19 11:08 Humulin R SC 3 unit .MILD SLIDING SCALE PRN Administration Mild Correctional Scale Insulin Human Regular 0 units 07/12/19 07:31 07/21/19 21:50 Humulin R SC 2 unit .BEDTIME SLIDING SC PRN Administration Bedtime Correctional Scale Metoprolol Tartrate 12.5 mg 07/12/19 09:00 07/25/19 09:48 Lopressor PO 12.5 mg BID ANDREA Administration Ondansetron HCl 4 mg 07/12/19 07:29 07/22/19 06:41 Zofran Odt PO 4 mg Q6H PRN Administration Nausea/Vomiting Ondansetron HCl 4 mg 07/12/19 07:29 07/22/19 09:57 Zofran IVP 4 mg Q6H PRN Administration Nausea/Vomiting Prochlorperazine Maleate 5 mg 07/11/19 22:46 07/15/19 08:29 Compazine PO 5 mg Q6H PRN Administration Nausea/Vomiting Senna/Docusate Sodium 2 tab 07/12/19 07:29 07/23/19 08:53 Senokot S PO 2 tab BID PRN Administration Constipation Sodium Chloride 10 ml 07/12/19 09:00 07/25/19 09:50 Flush - Normal Saline IVF 10 ml Q12HR ANDREA Administration Sodium Chloride 10 ml 07/12/19 07:49 07/22/19 10:02 Flush - Normal Saline IVF 10 ml PRN PRN Administration Saline Flush Sodium Chloride 1 gm 07/20/19 09:00 07/25/19 09:48 Sodium Chloride PO 1 gm TID ANDREA Administration Warfarin Sodium 4 mg 07/22/19 17:00 07/24/19 16:15 Coumadin PO 4 mg 1700 ANDREA Administration - Exam General Appearance: NAD, awake alert Eye: PERRL, anicteric sclera ENT: normocephalic atraumatic, no oropharyngeal lesions Neck: supple, symmetric, no JVD, no thyromegaly Heart: RRR, no murmur, no gallops, no rubs Respiratory: CTAB, no wheezes, no rales, no ronchi Gastrointestinal: soft, non-tender, non-distended, normal bowel sounds Extremities: no cyanosis, no clubbing, no edema Skin: normal turgor, no lesions, no rashes Neurological: cranial nerve grossly intact, normal sensation to touch Musculoskeletal: normal tone, normal strength Musculoskeletal - other findings: surgical site with dressing and wound vac Psychiatric: normal affect, normal behavior, A&O x 3 Hosp A/P (1) MSSA bacteremia Code(s): R78.81 - BACTEREMIA Status: Acute (2) Osteomyelitis of right foot Code(s): M86.9 - OSTEOMYELITIS, UNSPECIFIED Status: Acute (3) Anemia of chronic disease Code(s): D63.8 - ANEMIA IN OTHER CHRONIC DISEASES CLASSIFIED ELSEWHERE Status : Chronic (4) Anxiety and depression Code(s): F41.9 - ANXIETY DISORDER, UNSPECIFIED; F32.9 - MAJOR DEPRESSIVE DISORDER, SINGLE EPISODE, UNSPECIFIED Status: Chronic (5) Atrial fibrillation Code(s): I48.91 - UNSPECIFIED ATRIAL FIBRILLATION Status: Chronic Qualifiers: (6) CKD (chronic kidney disease) stage 3, GFR 30-59 ml/min Code(s): N18.3 - CHRONIC KIDNEY DISEASE, STAGE 3 (MODERATE) Status: Chronic (7) Chronic anticoagulation Code(s): Z79.01 - FPC (CURRENT) USE OF ANTICOAGULANTS Status: Chronic (8) Diabetes mellitus type 2, insulin dependent Code(s): E11.9 - TYPE 2 DIABETES MELLITUS WITHOUT COMPLICATIONS; Z79.4 - GIZZARD SKIN REMOVER (CURRENT) USE OF INSULIN Status: Chronic (9) H/O malignant neoplasm of colon Code(s): Z85.038 - PERSONAL HISTORY OF MALIGNANT NEOPLASM OF LARGE INTESTINE Status: Chronic (10) Hypertension Code(s): I10 - ESSENTIAL (PRIMARY) HYPERTENSION Status: Chronic Qualifiers: (11) ESE (obstructive sleep apnea) Code(s): G47.33 - OBSTRUCTIVE SLEEP APNEA (ADULT) (PEDIATRIC) Status: Chronic (12) Obesity (BMI 30-39.9) Code(s): E66.9 - OBESITY, UNSPECIFIED Status: Chronic - Plan old records reviewed/req, continue antibiotics, clinical social worker 07/25- continue wound care, continue IV cefepime for now, will ask Dr clement about his recommendation about final antibiotics on discharge, await insurance approval for discharge to swing bed. medication reviewed as above, symptomatic treatment
--- NOTE | 2019-07-25 15:43 | DIS ---
DATE OF ADMISSION: 07/11/2019 DATE OF DISCHARGE: 07/25/2019 PRIMARY CARE PHYSICIAN: [facility]. DISCHARGE DISPOSITION: Swing bed. PRIMARY DISCHARGE DIAGNOSES: 1. Methicillin-susceptible Staphylococcus aureus bacteremia. 2. Osteomyelitis of toe, status post amputation. 3. Acute on chronic kidney failure. SECONDARY DISCHARGE DIAGNOSES: Diabetic neuropathy; hypertension; dyslipidemia; paroxysmal atrial fibrillation, chronic anticoagulation; peripheral vascular disease; obesity with BMI 31; chronic kidney disease stage 3; chronic normocytic anemia. PRIMARY PROCEDURE/OPERATION: Dr. Sam did partial amputation of 5th metatarsal digit, right foot. RADIOLOGICAL INVESTIGATION: Chest x-ray, unremarkable. Foot x-ray on admission showed worsening of soft tissue swelling and bony destructive changes. Lower extremity MRI reported as osteomyelitis of 5th metatarsal and proximal phalanx of the little toe. Lower extremity ultrasound showed atherosclerotic changes. SIGNIFICANT LABORATORY DATA: WBC 7.5, hemoglobin 7.4, platelet 209. INR 2.0. Sodium 133, creatinine 1.61, calcium 8.3. LFT normal. Cardiac enzyme negative. Urinalysis consistent with UTI. Urine culture negative. Blood culture showed 1/2 positive for MSSA. Wound culture grew E coli and Staph aureus. DISCHARGE MEDICATIONS: 1. Cefepime 2 g IV q.12 hourly until August 10, and the patient will have weekly CBC, CMP, CRP. 2. Gabapentin 100 mg p.o. b.i.d. 3. Amlodipine 5 mg daily. 4. Lipitor 20 mg p.o. at bedtime. 5. Flecainide 100 mg b.i.d. 6. Lantus 40 units in morning and 20 units at bedtime. 7. Metoprolol 12.5 mg p.o. b.i.d. 8. Warfarin 2.5 mg and 5 mg as directed. CONTRAINDICATION: None. CODE STATUS: Full code. INPATIENT FLUE BLOWER: Dr. Sam, solutions specialist was consulted while in hospital. Dr. Box was following while in hospital. TEST RESULTS PENDING ON DISCHARGE: None. ALLERGIES: NO KNOWN DRUG ALLERGIES. DISCHARGE PLAN: Posthospital, the patient is discharged to swing bed, where the patient will need PT, OT, wound care, daily PT/INR monitoring and weekly labs. The patient will continue IV antibiotic therapy until August 10. HOSPITAL COURSE: A 69-year-old male with above-mentioned medical problem, who was admitted to hospital on July 11, 2019. The patient was treated with foot cellulitis and osteomyelitis. Subsequently, the patient had further investigation in the hospital with foot x-ray and lower extremity MRI and lower extremity ultrasound, which showed finding as above. The patient was requiring wound care as well as antibiotic therapy and finally the patient underwent amputation of toe and after that wound VAC was applied. His blood culture was positive for 1/2 for MSSA and that is why Dr. Box recommended to continue antibiotic therapy, cefepime for August 10. I have seen and examined the patient at bedside today. Please see my progress note from today for further detail. I spoke with Dr. Jones and updated about hospital course. I spoke with Dr. Box and confirmed about IV antibiotic therapy. Paperwork for discharge done and discharge medication reconciliation done. Total time spent on discharge day, 31 minutes. Job ID: [id number]
[2019-07-25] MEDS: Warfarin Sodium 2 MG TAB PO SCH (16:20)
--- NOTE | 2019-07-27 05:39 | PQF ---
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 Clinical indicators are provided on the bottom of this form for your review Can you please further specify if MRSA Sepsis is ruled in or ruled out? MRSA Sepsis [ ] Ruled in diagnosis [ ] Continue to treat [ ] Resolved [ ] Ruled out diagnosis [ ] Cannot rule out diagnosis [ x ] Other diagnosis please specify _MSSA sepssi [ ] Unable to determine In addition, please specify: Present on Admission (POA): [ x ] Yes [ ] No [ ] Unable to determine For continuity of documentation, please document condition throughout progress notes and discharge summary. Thank You. CLINICAL INDICATORS - SIGNS / SYMPTOMS / LABS H and P 07/11 pg.6- Sepsis H and P 07/11 pg.6- Cellulitis of foot Consult 07/13 Dr. Box pg.1- Bacteremia Consult 07/13 Dr. Box pg.2 Serendipitous identification of fever which led to the diagnosis of bacteremia DS 07/25 pg.1 Methicillin susceptible staphylococcus aureus bacteremia RISK FACTORS Osteomyelitis of toe- DS pg.1 Acute on chronic kidney failure- DS pg.1 Hypertension- DS pg.1 Obesity- DS pg.1 Diabetic neuropathy- DS pg.1 TREATMENTS 5th Toe amputation- Op report 07/18 Dr. Sam pg.1 Infectious Consult- Dr. Box 07/13 IV Fluids- JAN 06 IV antibiotics- JAN 06 Foot X-ray 07/13 Blood culture- Microbiology (This form is maintained as a part of the permanent medical record) 2015 [employer]. All Rights Reserved [email or web address] [not provided] MTDD
== END 2019-07-25 16:35 | DRG 854 ==
LOC: ERS 17:34 → ONC 20:10
PROVIDERS: ADMIT Internal Medicine; ATTEND Internal Medicine
PROC: 0Y6M0ZF Detachment at Right Foot, Partial 5th Ray, Open Approach (ICD-10-PCS; principal; 2019-07-18)
DX: A41.01 Sepsis due to Methicillin susceptible Staphylococcus aureus (principal); C18.9 Malignant neoplasm of colon, unspecified; I48.92 Unspecified atrial flutter; N39.0 Urinary tract infection, site not specified; L03.115 Cellulitis of right lower limb; C78.7 Secondary malignant neoplasm of liver and intrahepatic bile duct; C78.00 Secondary malignant neoplasm of unspecified lung; M86.171 Other acute osteomyelitis, right ankle and foot; E87.1 Hypo-osmolality and hyponatremia; N17.9 Acute kidney failure, unspecified; E11.69 Type 2 diabetes mellitus with other specified complication; L97.514 Non-pressure chronic ulcer of other part of right foot with necrosis of bone; E11.40 Type 2 diabetes mellitus with diabetic neuropathy, unspecified; G25.81 Restless legs syndrome; E66.9 Obesity, unspecified; G47.33 Obstructive sleep apnea (adult) (pediatric); M19.90 Unspecified osteoarthritis, unspecified site; F41.9 Anxiety disorder, unspecified; F32.9 Major depressive disorder, single episode, unspecified; R79.1 Abnormal coagulation profile; E78.5 Hyperlipidemia, unspecified; N31.9 Neuromuscular dysfunction of bladder, unspecified; I48.2 Chronic atrial fibrillation; I12.9 Hypertensive chronic kidney disease with stage 1 through stage 4 chronic kidney disease, or unspecified chronic kidney disease; N18.3 Chronic kidney disease, stage 3 (moderate); E11.22 Type 2 diabetes mellitus with diabetic chronic kidney disease; E11.65 Type 2 diabetes mellitus with hyperglycemia; E11.621 Type 2 diabetes mellitus with foot ulcer; D63.1 Anemia in chronic kidney disease; Z79.899 Other long term (current) drug therapy; Z79.01 Long term (current) use of anticoagulants; Z79.4 Long term (current) use of insulin; Z90.49 Acquired absence of other specified parts of digestive tract; Z68.31 Body mass index [BMI] 31.0-31.9, adult; Z89.421 Acquired absence of other right toe(s); E78.00 Pure hypercholesterolemia, unspecified; I48.0 Paroxysmal atrial fibrillation; I25.10 Atherosclerotic heart disease of native coronary artery without angina pectoris; E11.51 Type 2 diabetes mellitus with diabetic peripheral angiopathy without gangrene
CPT/HCPCS: 36415; 36416; 71045; 80048; 80053; 80069; 80202; 81001; 82248; 82378; 82550; 83605; 83615; 83690; 83735; 83880; 83930; 83935; 84100; 84484; 84550; 85025; 85610; 85730; 86850; 86900; 86901; 87040; 87070; 87077; 87086; 87149; 87186; 87205; 88305; 88311; 93005; 93923; 96365; 96366; 96375; 96413; 96416; 96417; J0640; J0692; J1100; J1815; J2405; J2469; J2704; J3010; J3370; J3430; J3490; J9035; J9190; Q0162; Q0164; S0020

== ENCOUNTER 2019-08-27 11:57 | Day surgery (SDC) | payer MEDICARE ==
[~2019-08-27 11:57] MED LIST changes: -Bevacizumab 400 MG, Bevacizumab 100 MG in Sodium Chloride 0.9% 80 ML IVPB SCH; -DEXAMETHASONE SOD PHOSPHATE IVPB SCH; -Palonosetron HCl 0.25 MG in Sodium Chloride 0.9% 50 ML IVPB SCH
[2019-08-27] MEDS ORDERED: Sodium Chloride 0.9% 20 ML ONE (12:10)
[2019-08-27] MEDS: DEXAMETHASONE SOD PHOSPHATE IVPB SCH ×2 (12:29→13:01)
[2019-08-27] MEDS: DEXTROSE 5% IVPB SCH ×2 (12:29→13:01)
[2019-08-27] MEDS: WATER IVPB SCH ×2 (12:29→13:01)
[2019-08-27 15:19] VITALS: BP 127/63; TEMP 97.8
== END 2019-08-27 15:19 | disposition home or self-care (01) ==
LOC: ONC/OP 11:57
PROVIDERS: ATTEND Internal Medicine Hematology & Oncology
DX: Z51.11 Encounter for antineoplastic chemotherapy (principal); C78.7 Secondary malignant neoplasm of liver and intrahepatic bile duct; C18.6 Malignant neoplasm of descending colon; C78.01 Secondary malignant neoplasm of right lung
CPT/HCPCS: 96375; 96413; J0640; J1100; J2469; J9190

== ENCOUNTER 2019-09-10 12:00 | Day surgery (SDC) | payer MEDICARE ==
[~2019-09-10 12:00] MED LIST changes: +DEXAMETHASONE SOD PHOSPHATE IVPB SCH
[2019-09-10] MEDS ORDERED: Sodium Chloride 0.9% 20 ML ONE (12:02)
[2019-09-10 12:41] VITALS: BP 122/57; TEMP 97.3
== END 2019-09-10 15:06 | disposition home or self-care (01) ==
LOC: ONC/OP 12:00
PROVIDERS: ATTEND Internal Medicine Hematology & Oncology
DX: Z51.11 Encounter for antineoplastic chemotherapy (principal); C18.6 Malignant neoplasm of descending colon; C78.7 Secondary malignant neoplasm of liver and intrahepatic bile duct; C78.01 Secondary malignant neoplasm of right lung
CPT/HCPCS: 36415; 80053; 82248; 82378; 83615; 84100; 84550; 96367; 96375; 96413; J0640; J1100; J2469; J9190

== ENCOUNTER 2019-09-18 14:43 | Inpatient (IN) | payer MEDICARE ==
[2019-09-18 15:41] LABS: #Eosinphils 0.2 thou/uL (0.0-0.7); #Neutrophils 10.8 thou/uL (1.40-6.50); %Basophils 0.2 % (0.0-1.0); %Eosinophils 1.2 % (0.0-10.0); %Monocytes 14.2 % (0.0-10.0); %Neutrophils 77.4 % (42.0-75.0); Hemoglobin 10.2 g/dL (14.0-18.0); Mean Corpuscular HGB CONC 33.6 g/dL (32.0-36.0); Mean Corpuscular Hemoglobin 31.1 pg (27.0-31.0); Mean Corpuscular Volume 92.3 fL (78.0-98.0); Platelet Count 293 thou/uL (130-400); RBC Distribution Width 13.8 % (11.5-14.5); Red Blood Cell (RBC) Count 3.27 mill/uL (4.70-6.10)
[2019-09-18] MEDS ORDERED: Vancomycin 1.5 GRAM/300 ML BAG 1.5 GM in Premix Bag 1 BAG IVPB SCH (16:00)
[2019-09-18] MEDS ORDERED: Piperacillin/Tazobactam 4.5 GM VIAL ONE (16:00)
[2019-09-18] MEDS ORDERED: Ondansetron PF 4 MG/2 ML Vial ONE (16:00)
[2019-09-18 16:03] LABS: ALT (SGPT) 19 U/L (8-55); AST (SGOT) 15 U/L (5-34); Albumin 3.5 g/dL (3.4-4.8); Alkaline Phosphatase 106 U/L (40-110); Anion Gap 12 mmol/L (10-20); BUN (Urea Nitrogen) 33 mg/dL (8.4-25.7); Bilirubin, Total 0.4 mg/dL (0.2-1.2); Calc. Creatinine Clearance 0 mL/min (70-130); Calcium 8.7 mg/dL (7.8-10.44); Carbon Dioxide 25 mmol/L (23-31); Chloride 95 mmol/L (98-107); Estimated GFR-MDRD 35; Globulin 4.1 g/dL (2.4-3.5); Glucose 365 mg/dL (83-110); Potassium 4.8 mmol/L (3.5-5.1); Protein, Total 7.6 g/dL (5.8-8.1); Sodium 127 mmol/L (136-145)
[2019-09-18 16:10] LABS: CRP (Inflammatory) 15.61 mg/dL (= or < 0.5); Lipase Less than 4 U/L (8-78)
--- NOTE | 2019-09-18 16:13 | RAD ---
Right foot 3 views HISTORY: Right foot pain. Amputation. COMPARISON: 07/14/2019. FINDINGS: Amputation at the fifth metatarsal base and base of the fourth toe since the most recent ex am. Some soft tissue gas and swelling adjacent to the stump at the fourth toe residual. Fragmentation of the remaining base of the fourth toe. Metatarsal head is intact. Mild degenerative changes throughout the remaining toes. Lisfranc joint alignment is anatomic. Promin ent arterial calcification. Achilles enthesophyte. IMPRESSION: Soft tissue swelling and small pockets of gas at the postoperative site at the base of th e fourth toe. If surgery was very recent, then this may be appropriate. In the setting of current clinical symptoms, underlying infection is very possible. Atherosclerosis.
[2019-09-18] MEDS ORDERED: Promethazine HCl 25 MG/ML VIAL ONE (17:09)
[2019-09-18] MEDS ORDERED: Acetaminophen 325 MG TAB PO PRN (18:24)
[2019-09-18] MEDS ORDERED: Acetaminophen 650 MG Suppository PR PRN (18:24)
[2019-09-18] MEDS ORDERED: Dextrose 5% in Water 1,000 ML IV PRN (18:34)
[2019-09-18] MEDS ORDERED: Dextrose 50% Abboject 50 ML SYRINGE SLOW IVP PRN (18:34)
--- NOTE | 2019-09-18 20:53 | HP ---
PRIMARY CARE PHYSICIAN: None. TIME OF ASSESSMENT: 1700 hours. CHIEF COMPLAINT: Presenting with infection of the right foot. HISTORY OF PRESENT ILLNESS: Mr. King is a 69-year-old gentleman with a history of metastatic colon cancer, currently undergoing chemotherapy, who also has a past medical history of hypertension, insulin-dependent diabetes, and atrial fibrillation. He was referred to the emergency department by the home health nurse due to concerns of necrotic appearing wound involving the right foot. The patient states that it has been necrotic in appearance for weeks. He had an amputation of the fourth and fifth toes 2-1/[address] Sam. Apparently, the skin changes have been evaluated by the wound nurse and communicated to Dr. Sam, who recommended monitoring. Given a foul smelling discharge, and erythematous appearance, he was advised to come into the emergency department. The patient states he is undergoing chemotherapy under the direction of Dr. Huff and received his last treatment on September 10, 2019. He is on a 5-FU infusion and is not sure if he is on any other treatment; however, was previously on oxaliplatin, which was discontinued due to peripheral neuropathy. The patient states he usually experience loose stools due to treatment; however, on Tuesday, he developed severe diarrhea, having 7 to 8 watery stools a day. Denies being on any antibiotics for this wound infection or any other infection. States he has not noted any blood. He has tried taking Imodium and has had no improvement. Denies any fevers. In the emergency department, he was noted to be tachycardic in the low 100s. He does have a history of atrial fibrillation and underwent ablations twice in the past and is currently on Coumadin. LABORATORY DATA: He has had laboratory studies done in the ER, which was notable for white count of 14, hemoglobin of 10.2, hematocrit 38.2, platelets 293, and neutrophils 77.4%. The lactic acid was normal at 1.6. He was noted to be hyponatremic with a sodium of 127, which has previously been in the mid 130s. He does have a history of chronic kidney disease; however, his renal function is worse from baseline. BUN is 33, creatinine 1.92, compared to 1.6 in the past. His GFR is now 35. His lipase was normal. CRP elevated at 15.6. IMAGING: He did undergo an x-ray of the right foot, which showed soft tissue swelling and small pockets of gas at the postoperative site, at the base of the fourth toe. He has been started on IV antibiotics with Zosyn and vancomycin. He has received 1 L of normal saline; but due to nausea, he was given Phenergan as well as ondansetron. REVIEW OF SYSTEMS: The patient reports having a good appetite. Denies having any vomiting, but does report nausea. Reports having occasional abdominal cramping associated with diarrhea. Denies any chest pain, palpitations, or shortness of breath. He does suffer from urinary retention, which requires self catheterization. Also has some issues with getting to the toilet, therefore is wearing pads. All other review of systems apart from those mentioned above in HPI are negative. PAST MEDICAL HISTORY: 1. Metastatic colon cancer involving the liver, lungs, and intrathoracic lymph nodes. On chemotherapy under the direction of Dr. Huff. 2. Atrial fibrillation, on anticoagulation with Coumadin. 3. Type 2 diabetes, insulin dependent. 4. Hypertension. 5. Peripheral neuropathy, chemotherapy-induced. 6. Restless legs syndrome. 7. Obesity. 8. Sleep apnea. 9. Arthritis. 10. Hearing loss. 11. Anxiety. 12. Depression. PAST SURGICAL HISTORY: 1. Colon resection. 2. Right chest port. 3. Cholecystectomy. 4. Tonsillectomy. 5. Previous liver resection. 6. Amputation of fourth and fifth toes in October 2016. 7. Previous hernia repair. 8. Cardiac ablation for atrial fibrillation x2. SOCIAL HISTORY: The patient denies any tobacco use, alcohol consumption, or illicit drug use. PHYSICAL EXAMINATION: GENERAL: The patient appears fatigued, but well developed, and in no acute distress. VITAL SIGNS: Temperature 98.6, pulse 85, respirations 15, blood pressure 144/70, O2 saturation 100% on room air. HEENT: Normocephalic and atraumatic. Pupils are equal, round, and reactive to light. Sclerae icterus. Oropharynx is clear. Oral mucosa appears dry. NECK: Supple. LUNGS: Clear bilaterally without wheezes, rales, or rhonchi. CARDIAC: Regular rate and rhythm. ABDOMEN: Soft, with some nodularity to the right side of the abdomen, which the patient states is due to insulin injections. Nontender to palpation. No guarding or rigidity. EXTREMITIES: No lower leg swelling or edema. Right foot notable for necrotic-appearing wound involving the fourth and fifth metatarsal amputation site. There is some surrounding erythema. No active bleeding or discharge. No tracking of erythema up his leg. NEUROLOGIC: Alert and oriented x3. Slightly reduced sensation involving the legs, chronic and unchanged. INVESTIGATIONS: As mentioned above in HPI. IMPRESSION AND PLAN: Mr. King is a pleasant 69-year-old gentleman, who has been referred for management of the following; 1. Right foot cellulitis. We will continue IV antibiotics and renally dose given the underlying acute on chronic kidney injury. Pharmacy to dose vancomycin. Consultation has been placed with Dr. Sam. 2. Severe diarrhea. Stool studies including C diff pending. 3. Metastatic colon cancer. The patient currently undergoing chemotherapy. We will place consultation to Oncology. We will also place a consultation to Palliative Care for discussion of goals of treatment as well as advance directives. 4. Hypertension. Monitor blood pressure and resume home medications once verified. 5. Acute on chronic kidney injury. The patient has received IV fluids. We will continue gentle hydration. 6. Hyponatremia. Continue to monitor sodium. We will add a urine and serum osmolality as well as urine sodium. We will consult Nephrology given underlying acute kidney injury/chronic kidney disease, multiple medications, and hyponatremia. 7. Diabetes mellitus. On insulin sliding scale. Monitor glucose and resume home medications once verified. 8. Atrial fibrillation. We will continue anticoagulation for now. May need to hold if any further procedures such as amputation is indicated per Dr. Sam's assessment. There was no definite evidence of osteomyelitis on the x-ray. 9. Gastrointestinal prophylaxis. Famotidine 20 mg b.i.d. 10. Deep venous thrombosis prophylaxis. Mechanical SCDs. 11. Code status, full. Surrogate decision maker is his , Randa King. The patient's case was discussed with Dr. Rain, who agrees with the plan of care as described above. Job ID: [id number]
[2019-09-18] MEDS: Piperacillin/Tazobactam 3.375 GM in Sodium Chloride 0.9% 100 ML IVPB SCH (23:30)
[2019-09-18] MEDS: Famotidine/PF 20 mg/2ml Vial SLOW IVP SCH (23:30)
[2019-09-19 06:47] LABS: #Basophils 0.1 thou/uL (0.0-0.2); #Eosinphils 0.4 thou/uL (0.0-0.7); #Lymphocytes 1.4 thou/uL (1.20-3.40); #Monocytes 1.6 thou/uL (0.11-0.59); #Neutrophils 8.1 thou/uL (1.40-6.50); %Basophils 0.6 % (0.0-1.0); %Lymphocytes 12.2 % (21.0-51.0); %Monocytes 13.7 % (0.0-10.0); %Neutrophils 70.4 % (42.0-75.0); Hemoglobin 8.3 g/dL (14.0-18.0); Mean Corpuscular HGB CONC 33.9 g/dL (32.0-36.0); Mean Corpuscular Hemoglobin 31.3 pg (27.0-31.0); Mean Corpuscular Volume 92.6 fL (78.0-98.0); Mean Platelet Volume 6.7 fL (7.4-10.4); Platelet Count 260 thou/uL (130-400); RBC Distribution Width 13.7 % (11.5-14.5); Red Blood Cell (RBC) Count 2.63 mill/uL (4.70-6.10); White Blood Cell (WBC) Count 11.6 thou/uL (4.8-10.8)
[2019-09-19 07:05] LABS: Anion Gap 13 mmol/L (10-20); BUN (Urea Nitrogen) 28 mg/dL (8.4-25.7); Calc. Creatinine Clearance 59 mL/min (70-130); Carbon Dioxide 20 mmol/L (23-31); Chloride 100 mmol/L (98-107); Estimated GFR-MDRD 42; Glucose 187 mg/dL (83-110); Potassium 4.3 mmol/L (3.5-5.1); Sodium 129 mmol/L (136-145)
[2019-09-19] MEDS: HumaLOG 300 UNITS/3 ML VIAL SC PRN ×4 (07:54→20:09)
[2019-09-19] MEDS: Piperacillin/Tazobactam 3.375 GM in Sodium Chloride 0.9% 100 ML IVPB SCH ×2 (07:59→15:14)
[2019-09-19] MEDS: Famotidine/PF 20 mg/2ml Vial SLOW IVP SCH (08:00)
--- NOTE | 2019-09-19 09:18 | PDOC.HOSPP ---
- Subjective Encounter Date: 09/19/19 Encounter Time: 09:16 Subjective: Patient seen and examined for R foot infection. No fever. Pain controlled. Diarrhea slowing down. No new complaints. No overnight events - Objective Vital Signs & Weight: Vital Signs (12 hours) Pulse Ox 09/19/19 00:00 100 Weight Weight 220 lb 11.2 oz I&O: 09/18/19 09/19/19 09/20/19 06:59 06:59 06:59 Intake Total 1920 Output Total 2300 Balance -380 Result Diagrams: 09/19/19 06:37 09/19/19 06:37 Additional Labs: Accuchecks 09/19/19 09/18/19 05:53 23:21 POC Glucose 211 H 289 H Radiology Reviewed by me: Yes (Foot XR - No osteo) Hospitalist ROS - Review of Systems Respiratory: denies: cough, dry, shortness of breath, hemoptysis, SOB with excertion, pleuritic pain, sputum, wheezing, other Cardiovascular: denies: chest pain, palpitations, orthopnea, paroxysmal noc. dyspnea, edema, light headedness, other - Medication Medications: Active Medications Generic Name Dose Route Start Last Admin Trade Name Freq PRN Reason Stop Dose Admin Famotidine 20 mg 09/18/19 21:00 09/19/19 08:00 Pepcid SLOW IVP 20 mg Q12HR ANDREA Administration Piperacillin Sod/Tazobactam 100 mls @ 200 mls/hr 09/18/19 23:59 09/19/19 07: 59 Sod 3.375 gm/ Sodium Chloride IVPB 100 mls 0800,1600,2359 ANDREA Administration Insulin Human Lispro 0 units 09/18/19 18:34 09/19/19 07:54 Humalog SC 4 unit .MODERATE SLIDING SC PRN Administration Moderate Correctional Scale - Exam General Appearance: NAD Neck: supple, no JVD Heart: RRR, no gallops, no rubs, normal peripheral pulses Respiratory: CTAB, no wheezes, no rales, no ronchi Gastrointestinal: soft, non-tender, non-distended, normal bowel sounds Extremities: no edema Extremities - other findings: foot dressing + Psychiatric: normal affect, A&O x 3 Hosp A/P - Plan PT/OT Severe Sepsis due to Rt foot cellulitis Diarrhea Hyponatremia - prob due to dehydration/diarrhea 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
[2019-09-19] MEDS ORDERED: Metoprolol Tartrate 25 MG TAB PO SCH (09:30)
[2019-09-19] MEDS ORDERED: Gabapentin 100 MG CAP PO SCH ×2 (09:30→21:00)
[2019-09-19] MEDS ORDERED: Flecainide 50 MG TAB PO SCH (09:30)
[2019-09-19] MEDS ORDERED: Insulin Glargine 15 UNITS in Pre-Filled Syringe 1 EACH SC SCH ×2 (09:30→21:00)
[2019-09-19] MEDS ORDERED: Warfarin Sodium 5 MG TAB PO SCH ×2 (09:30→17:00)
[2019-09-19] MEDS: Sodium Chloride 0.9% 1,000 ML IV SCH (10:00)
[2019-09-19] MEDS: Saccharomyces boulardii 250 MG CAP PO SCH (10:07)
[2019-09-19] MEDS: HYDROcodone/Acetaminophen 5/325 mg Tablet PO PRN ×2 (10:13→22:18)
[2019-09-19 10:14] LABS: INR-International Normal Ratio 3.7; Prothrombin Time 36.6 SEC (12.0-14.7)
[2019-09-19 10:15] LABS: PTT 74.8 SEC (22.9-36.1)
[2019-09-19] MEDS ORDERED: Gabapentin 300 MG CAP PO SCH (10:45)
--- NOTE | 2019-09-19 11:25 | CON ---
DATE OF CONSULTATION: REASON FOR CONSULTATION: Hyponatremia and elevated creatinine. HISTORY OF PRESENT ILLNESS: This is a 69-year-old gentleman, presented to the hospital for progressive diarrhea, was noted to have a creatinine of 1.9. He also was noted to have a right foot infection. The patient is getting chemotherapy for colon cancer. The patient denies any nausea, vomiting, or chest pain. PAST MEDICAL HISTORY: 1. Metastatic colon cancer, liver, lungs, and lymph nodes. 2. Atrial fibrillation. 3. Hypertension. 4. Peripheral neuropathy. 5. Restless legs. 6. Obesity. 7. Sleep apnea. 8. CKD. 9. Colon resection. 10. Right chest port. 11. Cholecystectomy. 12. Tonsillectomy. 13. Liver resection. 14. Hernia repair. SOCIAL HISTORY: No alcohol or drug use currently. ALLERGIES: REVIEWED. HOME MEDICATIONS: List reviewed. FAMILY HISTORY: Negative for ESRD. PHYSICAL EXAMINATION: CONSTITUTIONAL: The patient is awake and alert. VITAL SIGNS: breathing 16, and blood pressure 144/70. GENERAL APPEARANCE AND MENTAL STATUS: Fair. HEAD/NECK: Normocephalic. Atraumatic. EYES: EOMI. No deformity. EARS: Clear. No ulcers. NOSE: Intact. No lesions. MOUTH: Clear. No discharge. THROAT: Clear. No exudate. LUNGS: Clear. No crackles. CARDIAC: S1, S2. No rub. ABDOMEN: Benign. Bowel sounds positive. GENITALIA/RECTUM: Muhammad absent. BACK/EXTREMITIES: Edema 0+. NEUROLOGICAL: Alert and motor intact. SKIN: LYMPHATICS: LABORATORY DATA: Reviewed. ASSESSMENT AND PLAN: 1. Acute kidney injury with chronic kidney disease, most likely due to decreased effective arterial blood volume versus medication induced continue hydration. 2. Hyponatremia due to renal failure. 3. Anemia, stable. 4. Medication based on GFR appropriate. 5. No indication for dialysis. 6. We will follow the patient closely. Job ID: [id number]
[2019-09-19] MEDS ORDERED: Magnevist 469MG/ML 20 ML VIAL ONE (11:51)
[2019-09-19] MEDS: Gabapentin 300 MG CAP PO SCH ×2 (13:18→20:11)
--- NOTE | 2019-09-19 15:38 | PDOC.PALFU ---
Palliative Care Follow-up Note Attempted to meet with patient and introduce Palliative Care Program, he was at an MRI. Palliative Care will follow up 09/20.
--- NOTE | 2019-09-19 16:21 | CON ---
DATE OF CONSULTATION: REASON FOR CONSULTATION: Colon cancer. HISTORY OF PRESENT ILLNESS: Mr. King is a pleasant 69-year-old gentleman, who has metastatic colon cancer, diagnosed in 2008. He is currently receiving 5-FU chemotherapy. He has right lower extremity pedal osteomyelitis, that has required multiple surgeries and IV antibiotics over the past several months. His chemo has been held until just recently when he resumed 5-FU. He was to get oxaliplatin and Avastin, but due to poor wound healing, those have been held. His last cycle was on Tuesday, 09/10. He presented to the emergency room with skin changes on his foot with foul smelling discharge during wound care. He has a foot x-ray performed, showing soft tissue swelling and pockets of gas. His orthopedist has been consulted and is to see him later today. PAST MEDICAL HISTORY: 1. Metastatic colon cancer. 2. Diabetes mellitus, 2. 3. Hypertension. 4. Atrial fibrillation/flutter. 5. Dyslipidemia. 6. Arthritis. 7. Anxiety and depression. 8. Iron-deficient anemia. 9. Obstructive sleep apnea. 10. Diverticulitis. 11. Bladder dysfunction, requiring self catheterization. PAST SURGICAL HISTORY: 1. Colon resection. 2. Liver resection. 3. Port placement. 4. Cardiac ablation. 5. Amputation of his right toe. 6. Liver biopsy. ALLERGIES: NO KNOWN DRUG ALLERGIES. HOME MEDICATIONS: 1. Gabapentin. 2. Coumadin. 3. Norvasc. 4. Lipitor. 5. Tambocor. 6. Clearwater. 7. Lantus. 8. Lopressor. 9. MiraLAX. FAMILY HISTORY: Noncontributory. SOCIAL HISTORY: He is , lives with his spouse. No alcohol, tobacco, or illicit drug use. REVIEW OF SYSTEMS: Positive for foot pain, otherwise negative. PHYSICAL EXAMINATION: VITAL SIGNS: Temperature is 98.3, pulse is 79, respiratory rate 18, BP is 118/59. He is 98% on room air. GENERAL: Well-developed, well-nourished male, in no acute distress. HEENT: Normocephalic and atraumatic. Pupils are equal and reactive to light. NECK: Supple. CV: Regular rate and rhythm. LUNGS: Clear. ABDOMEN: Obese and nontender. Bowel sounds are positive. EXTREMITIES: No clubbing or cyanosis. SKIN: He has erythema to his right foot. NEUROLOGIC: Nonfocal. PSYCHIATRIC: He is alert, oriented and appropriate. PERTINENT LABORATORY DATA AND X-RAYS: Current WBCs 11.6, hemoglobin 8.3, hematocrit 24.4, and platelet count 260,000. He has 70% neutrophils and 12% lymphocytes. PT is 36.6, INR is 3.7, and PTT 74.8. Sodium 129, potassium 4.3, chloride 100, CO2 is 20, BUN is 18, and creatinine 1.63. Bilirubin is 0.4 AST is 15, ALT is 19, alkaline phosphatase is 106, serum total protein 7.6, albumin 3.5, and globulin 4.1. ASSESSMENT: 1. Metastatic colon cancer, on 5-FU chemotherapy. 2. Chronic right lower extremity osteomyelitis. DISCUSSION: The patient is being treated for osteomyelitis with antibiotics. His orthopedic surgeon has seen him and has ordered MRI of his foot. His white count is adequate as he is not neutropenic. He is on 5-FU chemotherapy. His next dose is due next week. Based on hospitalization recommendations, this could be postponed. We will follow his hospital course. The case has been discussed with Dr. Huff. Thank you for the consult. Job ID: [id number]
[2019-09-19] MEDS: Vancomycin 1.5 GRAM/300 ML BAG 1.5 GM in Premix Bag 1 BAG IVPB SCH (16:31)
--- NOTE | 2019-09-19 17:00 | MRI ---
MR OF THE RIGHT FOOT WITH AND WITHOUT CONTRAST: 09/19/19 INDICATION: Cellulitis of the right foot with concern for osteomyelitis. CONTRAST: 20 mL of Multihance. FINDINGS: There is partial ray amputation. The fourth digit metatarsophalangeal joint as well as within the pro ximal shaft of the fifth metatarsal. There is abnormal signal enhancement involving the fourth metata rsal head and distal shaft consistent with changes of osteomyelitis. There is a periosseous abscess s urrounding the fourth metatarsal head and neck region measuring approximately 2.3 x 1.5 cm. It appear s to communicate through the dorsal lateral skin of the distal forefoot. There is also osteomyelitis involving the residual base of the fifth metatarsal. There is extensive myositis of the forefoot. The re is extensive cellulitis of the dorsal aspect of the foot. There is prominent muscular atrophy in t he intrinsic musculature. IMPRESSION: 1. Osteomyelitis of the distal fourth metatarsal with surrounding periosseous abscess. 2. Osteomyelitis of the remnant of the fifth metatarsal base. POS: PRASHANTH
[2019-09-19] MEDS: Flecainide 50 MG TAB PO SCH (20:10)
[2019-09-19] MEDS: Atorvastatin Calcium 20 MG TAB PO SCH (20:10)
[2019-09-19] MEDS: Metoprolol Tartrate 25 MG TAB PO SCH (20:11)
[2019-09-19] MEDS: Famotidine 20 MG TAB PO SCH (20:11)
[2019-09-20] MEDS: Piperacillin/Tazobactam 3.375 GM in Sodium Chloride 0.9% 100 ML IVPB SCH ×4 (00:07→23:28)
--- NOTE | 2019-09-20 01:09 | CON ---
DATE OF CONSULTATION: 09/19/2019 REASON FOR CONSULTATION: Osteomyelitis, right foot, recurrence. HISTORY OF PRESENT ILLNESS: A 69-year-old patient whom I had seen recently in July when he presented with a history of type 2 diabetes, neuropathy, ulcer in the right lateral foot, prior UTI and history of colon cancer, on chemotherapy under Dr. Huff' supervision. In July, he had a surgical procedure by Dr. Sam that basically consisted of partial amputation of 5th metatarsal digit, right foot. This was managed with a wound negative pressure dressing and the antimicrobial therapy given intravenously. The organisms isolated then included E coli which was resistant to quinolones and ampicillin, and methicillin-sensitive Staphylococcus aureus. He also had a positive blood culture for Staphylococcus aureus. The patient was transferred to [place], and completed his long-term IV course of antimicrobial therapy there, was discharged home and had been doing well with closing of the wound until recently when he developed sudden deterioration of the right foot lateral aspect with inflammatory changes which resulted in his admission. The patient continues to receive chemotherapy for his colon cancer. At the same time, he had some nausea and diarrhea. Currently, Mr. King is awake and alert, denies any headaches. No shortness of breath or cough. No chest pain. No abdominal pain. Continues to have loose stools intermittently. No genitourinary symptoms. PAST MEDICAL HISTORY: Stage IV colon cancer, status post resection and chemotherapy, atrial fibrillation with ablation, type 2 diabetes, hypertension, obesity, sleep apnea. PAST SURGICAL HISTORY: Right chest port, right 5th metatarsal amputation recently, cholecystectomy, tonsillectomy. He had a resection of liver metastasis colon cancer, hernia repair. SOCIAL HISTORY: Never a smoker. ALLERGIES: NONE. CURRENT MEDICATIONS: 1. Tylenol. 2. Mikana. 3. Lipitor. 4. Dextrose. 5. Pepcid. 6. Tambocor. 7. Neurontin. 8. Insulin Humalog. 9. Lopressor. 10. Zosyn. 11. Vancomycin. PHYSICAL EXAMINATION: VITAL SIGNS: T-max 98.8, blood pressure 120/60, pulse 84, respirations 18, O2 saturation 98. SKIN: With area of bruising in the right heel with lateral aspect ulcerated region, with kind of necrotic area at the mid lateral aspect of the foot, surrounding erythema and associated swelling. No lymphadenopathy. HEENT: Ocular movements, conjugate. Oral cavity with still quite a few teeth remaining in place with expected gum disease and decay. NECK: Supple, no jugular vein distention. LUNGS: Symmetric, clear breath sounds. HEART: S1 and S2, regular rate. No S3 or S4. ABDOMEN: Soft, not distended or tender. No ascites. No bladder distention. Port site without any inflammatory changes or tenderness. EXTREMITIES: No joint inflammatory activity. Pulses are 2+ in dorsalis pedis. Cap refill is normal. LABORATORY DATA: White cell count 14,000, hemoglobin 10.2, platelets 293 with 77% neutrophils. INR 3.7. Sodium 127, creatinine 1.92. His baseline has ranged anywhere from 1.6 to 2.4 over the past few months. Liver profile normal, albumin 3.5. Urinalysis was not done. Two sets of blood cultures are pending. There is a swab from the site with polymicrobial felicity including gram-positive rods and gram-positive cocci in pairs. The patient had an MRI completed this morning which showed abnormal signal enhancement involving the 4th metatarsal head and distal shaft, has periosteous abscess surrounding the 4th metatarsal head and neck region. It appears to communicate through the dorsal lateral skin of the distal forefoot. There is also osteomyelitis in the residual base of the 5th metatarsal, extensive myositis of the forefoot and cellulitis. ASSESSMENT: Type 2 diabetes, stage IV colon cancer, on chemo, port in the right subclavian location, osteomyelitis of the right 5th ray and 4th ray, status post ray amputations, now with relapse at the remnants of both 4th and 5th rays. This is a quite refractory situation the patient has. This is the 3rd treatment that he is going to require, has failed twice already. The microbiology seems to be different each time, so I am not sure if this is a de Ricky process or if it is a recrudescence of the old one. It is possible that due to the chemotherapy that he is suffering from delayed healing and there might be superinfection of the area. The other concern is with the vascular supply, but his dorsalis pedis pulses are excellent, so I am not sure that would be an explanation. After this current procedure then, he will need renewed antimicrobial therapy guided by the cultures and after that, I would probably keep him on long-term oral suppressive therapy in view of the refractory nature of this process. Job ID: [id number]
[2019-09-20 06:40] LABS: #Basophils 0.1 thou/uL (0.0-0.2); #Eosinphils 0.5 thou/uL (0.0-0.7); #Lymphocytes 1.5 thou/uL (1.20-3.40); #Monocytes 1.5 thou/uL (0.11-0.59); #Neutrophils 8.2 thou/uL (1.40-6.50); %Basophils 0.5 % (0.0-1.0); %Lymphocytes 12.6 % (21.0-51.0); %Monocytes 12.5 % (0.0-10.0); %Neutrophils 70.3 % (42.0-75.0); Hemoglobin 7.9 g/dL (14.0-18.0); Mean Corpuscular HGB CONC 34.4 g/dL (32.0-36.0); Mean Corpuscular Hemoglobin 31.9 pg (27.0-31.0); Mean Corpuscular Volume 92.9 fL (78.0-98.0); Mean Platelet Volume 6.6 fL (7.4-10.4); Platelet Count 242 thou/uL (130-400); RBC Distribution Width 13.7 % (11.5-14.5); Red Blood Cell (RBC) Count 2.48 mill/uL (4.70-6.10); White Blood Cell (WBC) Count 11.7 thou/uL (4.8-10.8)
[2019-09-20 06:45] LABS: PTT 71.9 SEC (22.9-36.1)
[2019-09-20 06:53] LABS: INR-International Normal Ratio 3.5
[2019-09-20 06:59] LABS: ALT (SGPT) 18 U/L (8-55); AST (SGOT) 15 U/L (5-34); Albumin 2.7 g/dL (3.4-4.8); Alkaline Phosphatase 92 U/L (40-110); Anion Gap 8 mmol/L (10-20); BUN (Urea Nitrogen) 30 mg/dL (8.4-25.7); Bilirubin, Total 0.2 mg/dL (0.2-1.2); Calc. Creatinine Clearance 58 mL/min (70-130); Calcium 7.8 mg/dL (7.8-10.44); Carbon Dioxide 24 mmol/L (23-31); Chloride 101 mmol/L (98-107); Estimated GFR-MDRD 41; Globulin 3.1 g/dL (2.4-3.5); Glucose 253 mg/dL (83-110); Potassium 4.3 mmol/L (3.5-5.1); Protein, Total 5.8 g/dL (5.8-8.1); Sodium 129 mmol/L (136-145)
[2019-09-20] MEDS: Metoprolol Tartrate 25 MG TAB PO SCH ×2 (07:47→21:19)
[2019-09-20] MEDS: Sodium Chloride 0.9% 1,000 ML IV SCH (07:51)
[2019-09-20] MEDS: Gabapentin 300 MG CAP PO SCH ×3 (08:00→21:18)
[2019-09-20] MEDS: Famotidine 20 MG TAB PO SCH ×2 (09:00→21:19)
[2019-09-20] MEDS: Saccharomyces boulardii 250 MG CAP PO SCH (09:00)
[2019-09-20] MEDS ORDERED: Polyethylene Glycol 3350 17 GM Packet PO SCH (09:00)
[2019-09-20] MEDS ORDERED: Insulin Glargine 15 UNITS in Pre-Filled Syringe 1 EACH SC SCH (09:00)
[2019-09-20] MEDS: Flecainide 50 MG TAB PO SCH ×2 (09:00→21:18)
--- NOTE | 2019-09-20 10:40 | PRG ---
DATE OF SERVICE: 09/20/2019 SUBJECTIVE: This is a 69-year-old gentleman, being seen for acute kidney injury. The patient denied nausea, vomiting, or chest pain. OBJECTIVE: CONSTITUTIONAL: The patient is awake and alert. VITAL SIGNS: Pulse 76, breathing 16, blood pressure 128/60. GENERAL APPEARANCE AND MENTAL STATUS: Fair. HEAD/NECK: Normocephalic. Atraumatic. EYES: EOMI. No deformity. EARS: Clear. No ulcers. NOSE: Intact. No lesions. MOUTH: Clear. No discharge. THROAT: Clear. No exudate. LUNGS: Clear. No crackles. CARDIAC: S1, S2. No rub. ABDOMEN: Benign. Bowel sounds positive. GENITALIA/RECTUM: Muhammad absent. BACK/EXTREMITIES: Edema 0+. NEUROLOGICAL: Alert and motor intact. SKIN: LYMPHATICS: LABORATORY DATA: Hemoglobin 7.9. Creatinine 1.6. ASSESSMENT AND PLAN: 1. Chronic kidney disease, stage 3, stable. 2. Acute kidney injury due to acute tubular necrosis, stable. 3. Hyponatremia, stable. 4. Medication based on GFR appropriate. 5. No indication for dialysis. Continue hydration. Job ID: [id number]
[2019-09-20] MEDS ORDERED: PROPOFOL 200 MG/20 ML VIAL ONE (10:47)
[2019-09-20] MEDS ORDERED: Neomycin-Polymyxin 1 ML AMP ONE (11:56)
[2019-09-20] MEDS ORDERED: Bupivacaine PF 0.5% 30 ML VIAL ONE (11:56)
[2019-09-20] MEDS ORDERED: Fentanyl 100 MCG/2 ML VIAL ONE (12:31)
[2019-09-20] MEDS ORDERED: Midazolam HCl 2 mg/2 ml Vial ONE (12:31)
--- NOTE | 2019-09-20 14:19 | PRG ---
DATE OF SERVICE: 09/19/2019 SUBJECTIVE FINDINGS: The patient is in bed, reading. He was seen at noon. The patient states he is feeling much better since yesterday upon admission. He has been given IV antibiotics for cellulitis and other systemic symptoms. The patient is known to me, to the office. I had previously resected right 5th metatarsal due to osteomyelitis. The patient has been followed in my office for healing of the wound. OBJECTIVE FINDINGS: The patient was admitted with a white blood cell count of 14. After a day of antibiotics, his white blood cell count reduced to 11.6. There was a culture taken from the wound. No white blood cells seen. Moderate epithelial cells noted. There were many gram-positive rods as well as moderate gram-positive cocci in single pairs. X-rays show suspicion for infectious process of the distal 4th metatarsal. MRI was ordered and results show osteomyelitis of the distal 4th metatarsal and residual osteomyelitis in the 5th metatarsal distally. The wound has some erythema around it. The wound was fully granulated. ASSESSMENT AND PLAN: I discussed with the patient and his surgical intervention. They understand and agree. The patient will be going to the operating room at noon on 09/20 for resection of distal 4th metatarsal and distal 5th metatarsal with incision and drainage. I have consulted Vascular to review his previous TCOMs and arterial Doppler. Dr. Box is also seeing the patient. The plan will be to put him on a wound VAC starting tomorrow. Job ID: [id number] MTDD
[2019-09-20] MEDS: HumaLOG 300 UNITS/3 ML VIAL SC PRN ×2 (15:20→21:17)
--- NOTE | 2019-09-20 15:44 | PDOC.HOSPP ---
- Subjective Encounter Date: 09/20/19 Encounter Time: 14:30 Subjective: Patient seen and examined for Sepsis. Feeling better. Pain controlled. No diarrhea. No new complaints. No overnight events - Objective Vital Signs & Weight: Vital Signs (12 hours) Temp Pulse Resp BP Pulse Ox 09/20/19 14:00 97.4 F L 73 16 120/56 L 100 09/20/19 08:00 98.9 F 76 18 128/60 100 Weight Admit Weight 220 lb 11.2 oz Weight 219 lb I&O: 09/19/19 09/20/19 09/21/19 06:59 06:59 06:59 Intake Total 1920 2090 Output Total 2300 1200 Balance -380 890 Result Diagrams: 09/20/19 06:42 09/20/19 06:15 Additional Labs: Accuchecks 09/20/19 09/20/19 09/20/19 15:20 13:37 11:07 POC Glucose 250 H 214 H 221 H 09/20/19 09/19/19 09/19/19 06:26 20:09 15:46 POC Glucose 283 H 273 H 280 H Microbiology 09/19/19 06:30 Foot - Right Foot Bacterial Culture - Preliminary 09/18/19 15:30 Venous blood - Left Arm Blood Culture - Preliminary NO GROWTH AT 48 HOURS 09/18/19 15:27 Venous blood - Right Arm Blood Culture - Preliminary NO GROWTH AT 48 HOURS Laboratory Tests 09/20/19 06:15 INR 3.5 Hospitalist ROS - Review of Systems Respiratory: denies: cough, dry, shortness of breath, hemoptysis, SOB with excertion, pleuritic pain, sputum, wheezing, other Cardiovascular: denies: chest pain, palpitations, orthopnea, paroxysmal noc. dyspnea, edema, light headedness, other - Medication Medications: Active Medications Generic Name Dose Route Start Last Admin Trade Name Freq PRN Reason Stop Dose Admin Hydrocodone Bitart/Acetaminophen 1 tab 09/19/19 09:21 09/19/19 22:18 Kingsley 5/325 PO 1 tab Q4H PRN Administration Severe Pain (7-10) Atorvastatin Calcium 20 mg 09/19/19 21:00 09/19/19 20:10 Lipitor PO 20 mg HS ANDREA Administration Famotidine 20 mg 09/19/19 21:00 09/20/19 09:00 Pepcid PO Not Given BID ANDREA Flecainide Acetate 100 mg 09/19/19 21:00 09/20/19 09:00 Tambocor PO Not Given BID [facility] Gabapentin 300 mg 09/19/19 13:00 09/20/19 13:00 Neurontin PO Not Given 0800,1300 ANDREA Gabapentin 600 mg 09/19/19 21:00 09/19/19 20:11 Neurontin PO 600 mg QPM ANDREA Administration Piperacillin Sod/Tazobactam 100 mls @ 200 mls/hr 09/18/19 23:59 09/20/19 07: 47 Sod 3.375 gm/ Sodium Chloride IVPB 100 mls 0800,1600,2359 ANDREA Administration Vancomycin HCl 1.5 gm/ Device 300 mls @ 200 mls/hr 09/19/19 17:00 09/19/19 16 :31 IVPB 300 mls 1700 ANDREA Administration Insulin Glargine 15 units/ 0.15 mls @ 0 mls/hr 09/19/19 21:00 09/19/19 20:09 Miscellaneous Medication SC 0.15 mls HS ANDREA Administration Insulin Glargine 15 units/ 0.15 mls @ 0 mls/hr 09/20/19 09:00 09/20/19 09:00 Miscellaneous Medication SC Not Given QAM [facility] Sodium Chloride 1,000 mls @ 50 mls/hr 09/19/19 09:45 09/20/19 07:51 Normal Saline 0.9% IV 1,000 mls .Q20H ANDREA Administration Insulin Human Lispro 0 units 09/18/19 18:34 09/20/19 15:20 Humalog SC 4 unit .MODERATE SLIDING SC PRN Administration Moderate Correctional Scale Insulin Human Lispro 0 units 09/18/19 18:34 09/19/19 20:09 Humalog SC 3 unit .BEDTIME SLIDING SC PRN Administration Bedtime Correctional Scale Metoprolol Tartrate 12.5 mg 09/19/19 21:00 09/20/19 07:47 Lopressor PO 12.5 mg BID ANDREA Administration Polyethylene Glycol 17 gm 09/20/19 09:00 09/20/19 09:00 Miralax PO Not Given DAILY [facility] Saccharomyces Boulardii 250 mg 09/19/19 09:00 11/21/19 09:00 Florastor PO Not Given DAILY ANDREA - Exam General Appearance: NAD Heart: RRR, no gallops Respiratory: CTAB, no rales Gastrointestinal: soft, non-tender, normal bowel sounds Extremities: no edema Extremities - other findings: dressing + Hosp A/P - Plan Severe Sepsis due to Rt foot cellulitis/Osteomyelitis s/p I&D Diarrhea - resolved Hyponatremia - prob due to dehydration/diarrhea 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
[2019-09-20] MEDS ORDERED: Polyethylene Glycol 3350 17 GM Packet PO PRN (15:46)
--- NOTE | 2019-09-20 16:06 | RAD ---
Exam:3 views right foot HISTORY: Status post fourth metatarsal resection. Osteomyelitis. COMPARISON: 09/18/2019 FINDINGS: Postoperative changes compatible amputation of the fourth digit at the mid to distal aspect of the fourth metatarsal. Previous resection of the fifth digit is noted. Overlying bandage material is identified. IMPRESSION: Findings compatible with recent resection of the fourth digit at the level of the mid met atarsal
[2019-09-20 16:34] LABS: Vancomycin, Trough 11.5 ug/mL
[2019-09-20] MEDS: Vancomycin 1.5 GRAM/300 ML BAG 1.5 GM in Premix Bag 1 BAG IVPB SCH (17:31)
[2019-09-20] MEDS: Vancomycin HCl 1.75 GM in Sodium Chloride 0.9% 500 ML IVPB SCH (17:31)
[2019-09-20] MEDS ORDERED: Insulin Glargine 20 UNITS in Pre-Filled Syringe SC SCH (21:00)
[2019-09-20] MEDS: Atorvastatin Calcium 20 MG TAB PO SCH (21:18)
--- NOTE | 2019-09-20 23:48 | OP ---
DATE OF PROCEDURE: 09/20/2019 PREOPERATIVE DIAGNOSES: Osteomyelitis with abscess, left fourth metatarsal and residual osteomyelitis in the fifth metatarsal, right foot. POSTOPERATIVE DIAGNOSES: Osteomyelitis with abscess, left fourth metatarsal and residual osteomyelitis in the fifth metatarsal, right foot. ANESTHESIA: TIVA with local 10 mL of 0.5% plain Marcaine administered as an ankle block. HEMOSTASIS: Well-padded pneumatic ankle tourniquet utilized at the beginning of the case. ESTIMATED BLOOD LOSS: 100 mL. PROCEDURE: Resection of fourth metatarsal with proximal phalanx base, resection of distal fifth metatarsal with incision and drainage. PATHOLOGY: Soft bone and some necrotic fat with abscess beneath and medial to the fourth metatarsal head. DESCRIPTION OF PROCEDURE: The patient was taken to the operating room, placed on the operating table in supine position. After IV sedation was achieved, a right ankle block was performed totaling 10 mL of 0.5% plain Marcaine. Next, the right lower extremity was scrubbed and draped in the usual surgical manner. Attention was directed to the right foot. The right foot was elevated and held for 90 seconds and the cuff was then inflated. The existing wound was curetted and excised. The wound was deepened to identify the previously resected fifth metatarsal. Using a power saw, the distal aspect of the fifth metatarsal was resected. Inspection of the remaining metatarsal was hard and healthy appearing bone. Next, attention was directed to the distal aspect of the wound. The distal necrotic tissues were excised and removed. Isolation of the fourth metatarsal distally was identified and transected with a power saw. At this time, the abscess was expressed and culture and sensitivity, Gram stain was taken and sent. Next, the distal aspect of the fourth metatarsal was dissected with the base of the remaining proximal phalanx of the fourth digit. Examination of the remaining fourth metatarsal was inspected and found to be hard and healthy in appearance. All remaining tissues that were necrotic was removed. The tourniquet was then deflated. Instant vascularity to all the digits noted. No pulsatile bleeding noted. Using 3 L of solution, Pulsavac was utilized on the wound. After the 3 L, the wound was again inspected. All tissues appeared healthy. Inspection of the lateral aspect of the third metatarsophalangeal joint appeared to be intact. applied to the plantar skin of the wound. The wound was then packed with half-inch iodoform dressing. ABD pad, 4 x 4 gauze, Kerlix, and an Yvon bandage were applied. Patient tolerated the anesthesia and procedure well. The patient went to recovery room with vital signs stable. The patient is being readmitted to the hospital for physical therapy, IV antibiotic therapy, and wound care. The patient will be seen tomorrow to check on the status. Job ID: [id number]
[2019-09-21] MEDS: HYDROcodone/Acetaminophen 5/325 mg Tablet PO PRN ×3 (01:16→23:15)
[2019-09-21 05:59] LABS: #Basophils 0.1 thou/uL (0.0-0.2); #Eosinphils 0.3 thou/uL (0.0-0.7); #Lymphocytes 1.2 thou/uL (1.20-3.40); #Neutrophils 5.1 thou/uL (1.40-6.50); %Basophils 0.8 % (0.0-1.0); %Eosinophils 3.7 % (0.0-10.0); %Lymphocytes 15.6 % (21.0-51.0); %Monocytes 12.6 % (0.0-10.0); %Neutrophils 67.3 % (42.0-75.0); Hemoglobin 9.1 g/dL (14.0-18.0); Mean Corpuscular HGB CONC 33.6 g/dL (32.0-36.0); Mean Corpuscular Hemoglobin 30.9 pg (27.0-31.0); Mean Corpuscular Volume 91.9 fL (78.0-98.0); Mean Platelet Volume 6.7 fL (7.4-10.4); Platelet Count 195 thou/uL (130-400); RBC Distribution Width 13.6 % (11.5-14.5); Red Blood Cell (RBC) Count 2.93 mill/uL (4.70-6.10); White Blood Cell (WBC) Count 7.6 thou/uL (4.8-10.8)
[2019-09-21 06:02] LABS: INR-International Normal Ratio 3.1; PTT 65.5 SEC (22.9-36.1); Prothrombin Time 31.3 SEC (12.0-14.7)
[2019-09-21 06:20] LABS: ALT (SGPT) 15 U/L (8-55); AST (SGOT) 15 U/L (5-34); Albumin 2.4 g/dL (3.4-4.8); Alkaline Phosphatase 94 U/L (40-110); Anion Gap 8 mmol/L (10-20); BUN (Urea Nitrogen) 26 mg/dL (8.4-25.7); Bilirubin, Total 0.2 mg/dL (0.2-1.2); Calc. Creatinine Clearance 51 mL/min (70-130); Calcium 7.5 mg/dL (7.8-10.44); Carbon Dioxide 23 mmol/L (23-31); Chloride 103 mmol/L (98-107); Estimated GFR-MDRD 36; Globulin 2.9 g/dL (2.4-3.5); Glucose 254 mg/dL (83-110); Potassium 4.5 mmol/L (3.5-5.1); Protein, Total 5.3 g/dL (5.8-8.1); Sodium 129 mmol/L (136-145)
[2019-09-21] MEDS: Sodium Chloride 0.9% 1,000 ML IV SCH ×2 (06:24→23:25)
[2019-09-21] MEDS: HumaLOG 300 UNITS/3 ML VIAL SC PRN ×4 (08:51→21:07)
[2019-09-21] MEDS: Piperacillin/Tazobactam 3.375 GM in Sodium Chloride 0.9% 100 ML IVPB SCH ×4 (08:52→23:16)
[2019-09-21] MEDS: Saccharomyces boulardii 250 MG CAP PO SCH (08:58)
[2019-09-21] MEDS: Flecainide 50 MG TAB PO SCH ×2 (08:58→21:07)
[2019-09-21] MEDS: Metoprolol Tartrate 25 MG TAB PO SCH ×2 (08:58→21:07)
[2019-09-21] MEDS: Famotidine 20 MG TAB PO SCH ×2 (08:59→21:08)
[2019-09-21] MEDS: Gabapentin 300 MG CAP PO SCH ×3 (08:59→21:08)
[2019-09-21] MEDS: Insulin Glargine 30 UNITS in Pre-Filled Syringe 1 EACH SC SCH (09:17)
--- NOTE | 2019-09-21 09:27 | OP ---
DATE OF PROCEDURE: 09/20/2019 POSTOP NOTE: PREOPERATIVE DIAGNOSES: 1. Osteomyelitis of the right fourth distal metatarsal and distal aspect of the remaining fifth metatarsal. 2. Abscess around the fourth metatarsal head. POSTOPERATIVE DIAGNOSES: 1. Osteomyelitis of the right fourth distal metatarsal and distal aspect of the remaining fifth metatarsal. 2. Abscess around the fourth metatarsal head. PROCEDURES PERFORMED: Incision and drainage with resection of the distal fourth metatarsal and remaining base of proximal phalanx, as well as resection of the distal remaining fifth metatarsal, right foot. ESTIMATED BLOOD LOSS: 100 mL. HEMOSTASIS: Well-padded pneumatic ankle tourniquet utilized at the beginning of the procedure. ANESTHESIA: TIVA with local, 10 mL of 0.5% plain Marcaine was utilized as an ankle block. PATHOLOGY: Soft distal 4th metatarsal abscess around the 4th metatarsal head and some necrotic tissues. Culture and sensitivity and Gram stain sent from the abscess tissue. Job ID: [id number]
--- NOTE | 2019-09-21 13:31 | PRG ---
DATE OF SERVICE: 09/21/2019 SUBJECTIVE: This 69-year-old gentleman being seen for acute kidney injury. The patient denied nausea, vomiting or chest pain. OBJECTIVE: GENERAL: The patient is awake, alert. VITAL SIGNS: Pulse 68, breathing 16, blood pressure 113/64. See above. Awake, alert, in no acute distress. GENERAL APPEARANCE AND MENTAL STATUS: Fair. HEAD/NECK: Normocephalic. Atraumatic. EYES: EOMI. No deformity. EARS: Clear. No ulcers. NOSE: Intact. No lesions. MOUTH: Clear. No discharge. THROAT: Clear. No exudate. LUNGS: Clear. No crackles. CARDIAC: S1, S2. No rub. ABDOMEN: Benign. Bowel sounds positive. GENITALIA/RECTUM: Muhammad absent. BACK/EXTREMITIES: Edema 0+. NEUROLOGICAL: Alert and motor intact. SKIN: LYMPHATICS: LABORATORY DATA: Labs show hemoglobin 9.1, creatinine 1.8. ASSESSMENT: 1. Acute kidney injury with chronic kidney disease with rising creatinine, most likely due to decreased effective arterial blood volume versus chronic hypertensive and diabetic nephrosclerosis. No indication for dialysis. Continue hydration. 2. Hypertension, stable. 3. Anemia, stable. 4. Medication based on GFR appropriate. Job ID: [id number]
--- NOTE | 2019-09-21 15:59 | CON ---
DATE OF CONSULTATION: 09/20/2019 REQUESTING PHYSICIAN: Dr. Sky Sam. REASON FOR CONSULTATION: Osteomyelitis, requesting Vascular evaluation. CHIEF COMPLAINT: Right foot pain and drainage. HISTORY OF PRESENT ILLNESS: The patient is a 69-year-old man, undergoing chemotherapy for metastatic colon cancer. He has diabetes, hypertension, and atrial fibrillation. In March of this year, the patient began having problems with redness on his foot associated with an ulcer on the fifth toe. Initially, he was treated with antibiotics for presumed osteomyelitis. He had progression of the overlying ulceration and he began running fever and was admitted to the hospital in mid July. At which time, he underwent partial amputation of the right 5th toe and metatarsal. He had initially good response with near complete healing on IV antibiotics and wound VAC. He began to regress, however, with the development of some necrotic tissue in the wound bed and purulent drainage and was referred to the emergency room and admitted to the hospital on the of this month. An MRI was consistent with osteomyelitis of the distal 4th metatarsal as well as the remnant of the 5th metatarsal, and Vascular evaluation was requested along with making plans for further debridement. PAST MEDICAL HISTORY: Significant for hypertension, diabetes, atrial fibrillation, and metastatic colon cancer. HOME MEDICATIONS: 1. Neurontin 300 mg b.i.d. during the day and 600 mg at nighttime. 2. Flecainide 100 mg b.i.d. 3. Lopressor 12.5 mg b.i.d. 4. Coumadin 6 mg a day. 5. Lipitor 20 mg at bedtime. 6. Norvasc 5 mg a day. 7. Lantus insulin 43 units in the morning and 20 units at bedtime. 8. He is currently on vancomycin and Zosyn. ALLERGIES: HE DENIES ANY MEDICAL ALLERGIES. SOCIAL HISTORY: He does not smoke. REVIEW OF SYSTEMS: Notable for his fever. He denies any claudication. PHYSICAL EXAMINATION: He is in no distress and has bloody bandage on his right foot. He has easily palpable dorsalis pedis pulses bilaterally and the cut surfaces of his fresh wound are bloody with no obvious residual necrotic material. Plain films of his foot preoperatively showed a very short residual 5th metatarsal and a minimal amount of proximal phalanx of the 4th toe residual with soft tissue air at the level of the 4th toe, and postop films show further resection of the 5th metatarsal and conversion of the simple amputation of the fourth toe to a ray amputation. Vascular calcifications consistent with named tibial vessels are seen diffusely in the ankle and foot. IMPRESSION AND RECOMMENDATIONS: I was able to easily feel dorsalis pedis pulses in both feet, corroborating Dr. Box' finding. Further vascular evaluation and intervention should not been needed. Job ID: [id number] MTDD
[2019-09-21] MEDS: Vancomycin HCl 1.75 GM in Sodium Chloride 0.9% 500 ML IVPB SCH (16:55)
--- NOTE | 2019-09-21 18:06 | PDOC.HOSPP ---
- Subjective Encounter Date: 09/21/19 Encounter Time: 13:00 Subjective: Patient seen and examined for Sepsis. Pain controlled. No fever or chills. No new complaints. No overnight events - Objective Vital Signs & Weight: Vital Signs (12 hours) Temp Pulse Resp BP Pulse Ox 09/21/19 08:00 97.5 F L 68 18 139/64 100 Weight Admit Weight 220 lb 11.2 oz Weight 219 lb I&O: 09/20/19 09/21/19 09/22/19 06:59 06:59 06:59 Intake Total 2090 1850 Output Total 1200 1500 Balance 890 350 Result Diagrams: 09/21/19 05:45 09/21/19 05:45 Additional Labs: Accuchecks 09/21/19 09/21/19 09/21/19 16:25 11:03 05:44 POC Glucose 257 H 294 H 272 H 09/20/19 19:52 POC Glucose 309 H Hospitalist ROS - Review of Systems Respiratory: denies: cough, dry, shortness of breath, hemoptysis, SOB with excertion, pleuritic pain, sputum, wheezing, other Cardiovascular: denies: chest pain, palpitations, orthopnea, paroxysmal noc. dyspnea, edema, light headedness, other - Medication Medications: Active Medications Generic Name Dose Route Start Last Admin Trade Name Freq PRN Reason Stop Dose Admin Hydrocodone Bitart/Acetaminophen 1 tab 09/19/19 09:21 09/21/19 09:22 [place] 5/325 PO 1 tab Q4H PRN Administration Severe Pain (7-10) Atorvastatin Calcium 20 mg 09/19/19 21:00 09/20/19 21:18 Lipitor PO 20 mg HS ANDREA Administration Famotidine 20 mg 09/19/19 21:00 09/21/19 08:59 Pepcid PO 20 mg BID ANDREA Administration Flecainide Acetate 100 mg 09/19/19 21:00 09/21/19 08:58 Tambocor PO 100 mg BID ANDREA Administration Gabapentin 300 mg 09/19/19 13:00 09/21/19 12:03 Neurontin PO 300 mg 0800,1300 ANDREA Administration Gabapentin 600 mg 09/19/19 21:00 09/20/19 21:18 Neurontin PO 600 mg QPM ANDREA Administration Piperacillin Sod/Tazobactam 100 mls @ 200 mls/hr 09/18/19 23:59 09/21/19 17: 24 Sod 3.375 gm/ Sodium Chloride IVPB 100 mls 0800,1600,2359 ANDREA Administration Sodium Chloride 1,000 mls @ 50 mls/hr 09/19/19 09:45 09/21/19 06:24 Normal Saline 0.9% IV 1,000 mls .Q20H ANDREA Administration Vancomycin HCl 1.75 gm/ Sodium 500 mls @ 250 mls/hr 09/20/19 17:00 09/21/19 16:55 Chloride IVPB 500 mls 1700 ANDREA Administration Insulin Glargine 30 units/ 0.3 mls @ 0 mls/hr 09/21/19 09:00 09/21/19 09:17 Miscellaneous Medication SC 0.3 mls QAM ANDREA Administration Insulin Human Lispro 0 units 09/18/19 18:34 09/21/19 16:54 Humalog SC 6 unit .MODERATE SLIDING SC PRN Administration Moderate Correctional Scale Insulin Human Lispro 0 units 09/18/19 18:34 09/20/19 21:17 Humalog SC 3 unit .BEDTIME SLIDING SC PRN Administration Bedtime Correctional Scale Metoprolol Tartrate 12.5 mg 09/19/19 21:00 09/21/19 08:58 Lopressor PO 12.5 mg BID ANDREA Administration Saccharomyces Boulardii 250 mg 09/19/19 09:00 09/21/19 08:58 Florastor PO 250 mg DAILY ANDREA Administration - Exam General Appearance: NAD Heart: RRR, no gallops Respiratory: CTAB, no rales Gastrointestinal: soft, non-tender, normal bowel sounds Extremities: no cyanosis Extremities - other findings: foot dressing + Hosp A/P - Plan Severe Sepsis due to Rt foot cellulitis/Osteomyelitis s/p I&D Hyponatremia MAURICE on CKD 2 Obesity BMI 30.8 Physical deconditioning Metastatic Colon CA Chronic Anemia HTN DM2 Afib on Warfarin/Supratherapeutic INR - INR 3.1 today Diarrhea - resolved PLAN: Cont current Atbx - Vancomycin/Zosyn Monitor Vancomycin level Cont gentle hydration Cont wound care AM labs including PT/INR Cont other meds Increase Lantus to 30 units QAM and 20 QPM Cont moderate sliding scale Warfarin on hold Await culture/sensitivities
[2019-09-21] MEDS ORDERED: Insulin Glargine 20 UNITS in Pre-Filled Syringe 1 EACH SC SCH (21:00)
[2019-09-21] MEDS: Atorvastatin Calcium 20 MG TAB PO SCH (21:08)
--- NOTE | 2019-09-22 00:20 | CON ---
DATE OF CONSULTATION: 09/21/2019 He is in room 132. Postop day #1. SUBJECTIVE FINDINGS: The patient is resting comfortably in bed, watching TV. The patient has had minimal pain. The wound VAC was placed earlier today. OBJECTIVE FINDINGS: Wound VAC intact. Minimal production in the canister. The patient's white blood cell count has come down to normal, 7.6. The patient's culture preliminary is Staph aureus. No sensitivities as of right now. The patient is alert, oriented, and responds well. ASSESSMENT AND PLAN: At this time, we are waiting for sensitivity results to determine IV antibiotic therapy. He will be set up for outpatient wound VAC care. He will follow up with me in 10 days to 2 weeks post discharge to home. Job ID: [id number]
[2019-09-22 06:06] LABS: #Basophils 0.1 thou/uL (0.0-0.2); #Eosinphils 0.4 thou/uL (0.0-0.7); #Lymphocytes 1.6 thou/uL (1.20-3.40); #Monocytes 1.2 thou/uL (0.11-0.59); #Neutrophils 5.6 thou/uL (1.40-6.50); %Basophils 0.8 % (0.0-1.0); %Eosinophils 4.7 % (0.0-10.0); %Lymphocytes 18.2 % (21.0-51.0); %Monocytes 13.4 % (0.0-10.0); %Neutrophils 62.9 % (42.0-75.0); Hemoglobin 6.6 g/dL (14.0-18.0); Mean Corpuscular HGB CONC 33.7 g/dL (32.0-36.0); Mean Corpuscular Hemoglobin 30.7 pg (27.0-31.0); Mean Corpuscular Volume 91.2 fL (78.0-98.0); Mean Platelet Volume 6.5 fL (7.4-10.4); Platelet Count 233 thou/uL (130-400); RBC Distribution Width 13.4 % (11.5-14.5); Red Blood Cell (RBC) Count 2.14 mill/uL (4.70-6.10)
[2019-09-22 06:11] LABS: INR-International Normal Ratio 2.1; Prothrombin Time 23.6 SEC (12.0-14.7)
[2019-09-22 06:28] LABS: ALT (SGPT) 13 U/L (8-55); AST (SGOT) 12 U/L (5-34); Albumin 2.5 g/dL (3.4-4.8); Alkaline Phosphatase 82 U/L (40-110); Anion Gap 10 mmol/L (10-20); BUN (Urea Nitrogen) 29 mg/dL (8.4-25.7); Bilirubin, Total 0.2 mg/dL (0.2-1.2); Calc. Creatinine Clearance 61 mL/min (70-130); Calcium 7.9 mg/dL (7.8-10.44); Carbon Dioxide 23 mmol/L (23-31); Chloride 101 mmol/L (98-107); Estimated GFR-MDRD 44; Glucose 229 mg/dL (83-110); Potassium 4.4 mmol/L (3.5-5.1); Protein, Total 5.5 g/dL (5.8-8.1); Sodium 130 mmol/L (136-145)
[2019-09-22] MEDS: HumaLOG 300 UNITS/3 ML VIAL SC PRN ×3 (07:13→17:17)
[2019-09-22] MEDS: Gabapentin 300 MG CAP PO SCH ×3 (07:58→20:07)
[2019-09-22] MEDS: Piperacillin/Tazobactam 3.375 GM in Sodium Chloride 0.9% 100 ML IVPB SCH ×3 (07:58→23:46)
[2019-09-22] MEDS: Flecainide 50 MG TAB PO SCH ×2 (07:59→20:06)
[2019-09-22] MEDS: Famotidine 20 MG TAB PO SCH ×2 (07:59→20:06)
[2019-09-22] MEDS: Saccharomyces boulardii 250 MG CAP PO SCH (07:59)
[2019-09-22] MEDS: Metoprolol Tartrate 25 MG TAB PO SCH ×2 (08:02→20:06)
[2019-09-22] MEDS: Sodium Chloride 0.9% 1,000 ML IV SCH ×3 (08:38→23:46)
[2019-09-22] MEDS: Insulin Glargine 30 UNITS in Pre-Filled Syringe 1 EACH SC SCH (08:41)
[2019-09-22] MEDS ORDERED: Promethazine 25 MG TAB PO PRN (11:21)
--- NOTE | 2019-09-22 13:22 | PRG ---
DATE OF SERVICE: 09/22/2019 SUBJECTIVE: A 69-year-old gentleman being seen for acute kidney injury. The patient denied nausea, vomiting, chest pain. OBJECTIVE: See above. GENERAL: The patient is awake, alert. VITAL SIGNS: Pulse 75, breathing 16, blood pressure 131/60. GENERAL APPEARANCE AND MENTAL STATUS: Fair. HEAD/NECK: Normocephalic. Atraumatic. EYES: EOMI. No deformity. EARS: Clear. No ulcers. NOSE: Intact. No lesions. MOUTH: Clear. No discharge. THROAT: Clear. No exudate. LUNGS: Clear. No crackles. CARDIAC: S1, S2. No rub. ABDOMEN: Benign. Bowel sounds positive. GENITALIA/RECTUM: Muhammad absent. BACK/EXTREMITIES: Edema 0+. NEUROLOGICAL: Alert and motor intact. LABORATORY DATA: Hemoglobin 6.6. ASSESSMENT AND PLAN: 1. Chronic kidney disease, stage 3, stable. 2. Acute kidney injury due to acute tubular necrosis, stable. 3. Hyponatremia, stable. 4. Anemia. Would recommend stat transfusion of 1-2 units. Job ID: [id number]
[2019-09-22] MEDS ORDERED: Warfarin Sodium 5 MG TAB PO SCH (17:00)
[2019-09-22] MEDS: Vancomycin HCl 1.75 GM in Sodium Chloride 0.9% 500 ML IVPB SCH (17:07)
[2019-09-22] MEDS: Atorvastatin Calcium 20 MG TAB PO SCH (20:06)
[2019-09-22] MEDS: Insulin Glargine 25 UNITS in Pre-Filled Syringe 1 EACH SC SCH (20:07)
[2019-09-23] MEDS: HYDROcodone/Acetaminophen 5/325 mg Tablet PO PRN (00:42)
[2019-09-23 05:36] LABS: #Eosinphils 0.4 thou/uL (0.0-0.7); #Lymphocytes 1.2 thou/uL (1.20-3.40); #Monocytes 0.8 thou/uL (0.11-0.59); #Neutrophils 5.8 thou/uL (1.40-6.50); %Basophils 0.4 % (0.0-1.0); %Eosinophils 4.5 % (0.0-10.0); %Lymphocytes 14.4 % (21.0-51.0); %Monocytes 10.2 % (0.0-10.0); %Neutrophils 70.5 % (42.0-75.0); Hemoglobin 7.6 g/dL (14.0-18.0); Mean Corpuscular HGB CONC 34.3 g/dL (32.0-36.0); Mean Corpuscular Hemoglobin 31.4 pg (27.0-31.0); Mean Corpuscular Volume 91.5 fL (78.0-98.0); Mean Platelet Volume 6.3 fL (7.4-10.4); Platelet Count 254 thou/uL (130-400); RBC Distribution Width 13.4 % (11.5-14.5); Red Blood Cell (RBC) Count 2.41 mill/uL (4.70-6.10); White Blood Cell (WBC) Count 8.3 thou/uL (4.8-10.8)
[2019-09-23 05:44] LABS: INR-International Normal Ratio 1.8; PTT 44.1 SEC (22.9-36.1); Prothrombin Time 20.8 SEC (12.0-14.7)
[2019-09-23 05:55] LABS: Anion Gap 6 mmol/L (10-20); BUN (Urea Nitrogen) 26 mg/dL (8.4-25.7); Calc. Creatinine Clearance 69 mL/min (70-130); Calcium 8.2 mg/dL (7.8-10.44); Carbon Dioxide 26 mmol/L (23-31); Chloride 107 mmol/L (98-107); Estimated GFR-MDRD 51; Glucose 176 mg/dL (83-110); Potassium 4.4 mmol/L (3.5-5.1); Sodium 135 mmol/L (136-145)
[2019-09-23] MEDS: Famotidine 20 MG TAB PO SCH ×2 (08:17→19:59)
[2019-09-23] MEDS: Saccharomyces boulardii 250 MG CAP PO SCH (08:17)
[2019-09-23] MEDS: Flecainide 50 MG TAB PO SCH ×2 (08:17→19:59)
[2019-09-23] MEDS: Piperacillin/Tazobactam 3.375 GM in Sodium Chloride 0.9% 100 ML IVPB SCH (08:18)
[2019-09-23] MEDS: Gabapentin 300 MG CAP PO SCH ×3 (08:18→19:59)
[2019-09-23] MEDS: Insulin Glargine 35 UNITS in Pre-Filled Syringe 1 EACH SC SCH (08:21)
[2019-09-23] MEDS: HumaLOG 300 UNITS/3 ML VIAL SC PRN ×3 (08:21→15:58)
--- NOTE | 2019-09-23 08:32 | PDOC.HOSPP ---
- Subjective Encounter Date: 09/22/19 Encounter Time: 09:00 Subjective: Patient seen and examined for Sepsis. No bleeding. Pain controlled. No hematemesis/melena. No new complaints. No overnight events - Objective Vital Signs & Weight: Vital Signs (12 hours) Temp Pulse Resp BP Pulse Ox 09/23/19 07:05 98.4 F 63 12 136/63 99 Weight Admit Weight 220 lb 11.2 oz Weight 219 lb I&O: 09/22/19 09/23/19 09/24/19 06:59 06:59 06:59 Intake Total 1959 3400 Output Total 2024 2950 Balance -65 450 Result Diagrams: 09/23/19 05:17 09/23/19 05:17 Additional Labs: Accuchecks 09/22/19 09/22/19 09/22/19 20:08 16:24 10:57 POC Glucose 265 H 290 H 224 H Laboratory Tests 09/22/19 09/23/19 05:50 05:17 Hgb 6.6 L 7.6 L Hospitalist ROS - Review of Systems Respiratory: denies: cough, dry, shortness of breath, hemoptysis, SOB with excertion, pleuritic pain, sputum, wheezing, other Cardiovascular: denies: chest pain, palpitations, orthopnea, paroxysmal noc. dyspnea, edema, light headedness, other - Medication Medications: Active Medications Generic Name Dose Route Start Last Admin Trade Name Freq PRN Reason Stop Dose Admin Hydrocodone Bitart/Acetaminophen 1 tab 09/19/19 09:21 09/23/19 00:42 [place] 5/325 PO 1 tab Q4H PRN Administration Severe Pain (7-10) Atorvastatin Calcium 20 mg 09/19/19 21:00 09/22/19 20:06 Lipitor PO 20 mg HS ANDREA Administration Famotidine 20 mg 09/19/19 21:00 09/23/19 08:17 Pepcid PO 20 mg BID ANDREA Administration Flecainide Acetate 100 mg 09/19/19 21:00 09/23/19 08:17 Tambocor PO 100 mg BID ANDREA Administration Gabapentin 300 mg 09/19/19 13:00 09/23/19 08:18 Neurontin PO 300 mg 0800,1300 ANDREA Administration Gabapentin 600 mg 09/19/19 21:00 09/22/19 20:07 Neurontin PO 600 mg QPM ANDREA Administration Piperacillin Sod/Tazobactam 100 mls @ 200 mls/hr 09/18/19 23:59 09/23/19 08: 18 Sod 3.375 gm/ Sodium Chloride IVPB 100 mls 0800,1600,2359 ANDREA Administration Sodium Chloride 1,000 mls @ 50 mls/hr 09/19/19 09:45 09/22/19 23:46 Normal Saline 0.9% IV 1,000 mls .Q20H ANDREA Administration Vancomycin HCl 1.75 gm/ Sodium 500 mls @ 250 mls/hr 09/20/19 17:00 09/22/19 17:07 Chloride IVPB 500 mls 1700 ANDREA Administration Insulin Glargine 25 units/ 0.25 mls @ 0 mls/hr 09/22/19 21:00 09/22/19 20:07 Miscellaneous Medication SC 0.25 mls HS ANDREA Administration Insulin Glargine 35 units/ 0.35 mls @ 0 mls/hr 09/23/19 09:00 09/23/19 08:21 Miscellaneous Medication SC 0.35 mls QAM ANDREA Administration Insulin Human Lispro 0 units 09/18/19 18:34 09/23/19 08:21 Humalog SC 2 unit .MODERATE SLIDING SC PRN Administration Moderate Correctional Scale Insulin Human Lispro 0 units 09/18/19 18:34 09/21/19 21:07 Humalog SC 3 unit .BEDTIME SLIDING SC PRN Administration Bedtime Correctional Scale Metoprolol Tartrate 12.5 mg 09/19/19 21:00 09/22/19 20:06 Lopressor PO 12.5 mg BID ANDREA Administration Promethazine HCl 25 mg 09/22/19 11:21 09/22/19 11:46 Phenergan PO 25 mg Q6H PRN Administration Nausea Saccharomyces Boulardii 250 mg 09/19/19 09:00 09/23/19 08:17 Florastor PO 250 mg DAILY ANDREA Administration - Exam General Appearance: NAD Neck: supple, no JVD Heart: RRR, no gallops Respiratory: CTAB, no rales Gastrointestinal: soft, normal bowel sounds Extremities: no edema Extremities - other findings: dressing/wound vac+ Hosp A/P - Plan Severe Sepsis due to Rt foot cellulitis/Osteomyelitis s/p I&D Hyponatremia MAURICE on CKD 2 Obesity BMI 30.8 Physical deconditioning Metastatic Colon CA Chronic Anemia HTN DM2 Afib on Warfarin/Supratherapeutic INR Diarrhea - resolved PLAN: Transfuse 1 unit PRBC Cont current Atbx - Vancomycin/Zosyn Monitor Vancomycin level Cont wound care AM labs including PT/INR Await culture/sensitivities Increase Lantus to 35 units QAM and 25 QPM Cont moderate sliding scale Hold Warfarin Cont other meds
[2019-09-23] MEDS: Metoprolol Tartrate 25 MG TAB PO SCH ×2 (09:00→19:59)
[2019-09-23] MEDS: Sodium Chloride 0.9% 1,000 ML IV SCH (13:45)
--- NOTE | 2019-09-23 14:25 | PDOC.HOSPP ---
- Subjective Encounter Date: 09/23/19 Encounter Time: 13:00 Subjective: Patient seen and examined for Sepsis/foot infection. No fever or chills. No overnight events - Objective Vital Signs & Weight: Vital Signs (12 hours) Temp Pulse Resp BP Pulse Ox 09/23/19 08:00 99 09/23/19 07:05 98.4 F 63 12 136/63 99 Weight Admit Weight 220 lb 11.2 oz Weight 219 lb I&O: 09/22/19 09/23/19 09/24/19 06:59 06:59 06:59 Intake Total 1959 3400 Output Total 2024 2950 Balance -65 450 Result Diagrams: 09/23/19 05:17 09/23/19 05:17 Additional Labs: Accuchecks 09/23/19 09/22/19 09/22/19 12:23 20:08 16:24 POC Glucose 227 H 265 H 290 H Hospitalist ROS - Review of Systems Respiratory: denies: cough, dry, shortness of breath, hemoptysis, SOB with excertion, pleuritic pain, sputum, wheezing, other Cardiovascular: denies: chest pain, palpitations, orthopnea, paroxysmal noc. dyspnea, edema, light headedness, other - Medication Medications: Active Medications Generic Name Dose Route Start Last Admin Trade Name Freq PRN Reason Stop Dose Admin Hydrocodone Bitart/Acetaminophen 1 tab 09/19/19 09:21 09/23/19 00:42 [place] 5/325 PO 1 tab Q4H PRN Administration Severe Pain (7-10) Atorvastatin Calcium 20 mg 09/19/19 21:00 09/22/19 20:06 Lipitor PO 20 mg HS ANDREA Administration Famotidine 20 mg 09/19/19 21:00 09/23/19 08:17 Pepcid PO 20 mg BID ANDREA Administration Flecainide Acetate 100 mg 09/19/19 21:00 09/23/19 08:17 Tambocor PO 100 mg BID ANDREA Administration Gabapentin 300 mg 09/19/19 13:00 09/23/19 08:18 Neurontin PO 300 mg 0800,1300 ANDREA Administration Gabapentin 600 mg 09/19/19 21:00 09/22/19 20:07 Neurontin PO 600 mg QPM ANDREA Administration Piperacillin Sod/Tazobactam 100 mls @ 200 mls/hr 09/18/19 23:59 09/23/19 08: 18 Sod 3.375 gm/ Sodium Chloride IVPB 100 mls 0800,1600,2359 ANDREA Administration Sodium Chloride 1,000 mls @ 50 mls/hr 09/19/19 09:45 09/22/19 23:46 Normal Saline 0.9% IV 1,000 mls .Q20H ANDREA Administration Vancomycin HCl 1.75 gm/ Sodium 500 mls @ 250 mls/hr 09/20/19 17:00 09/22/19 17:07 Chloride IVPB 500 mls 1700 ANDREA Administration Insulin Glargine 25 units/ 0.25 mls @ 0 mls/hr 09/22/19 21:00 09/22/19 20:07 Miscellaneous Medication SC 0.25 mls HS ANDREA Administration Insulin Glargine 35 units/ 0.35 mls @ 0 mls/hr 09/23/19 09:00 09/23/19 08:21 Miscellaneous Medication SC 0.35 mls QAM ANDREA Administration Insulin Human Lispro 0 units 09/18/19 18:34 09/23/19 12:25 Humalog SC 4 unit .MODERATE SLIDING SC PRN Administration Moderate Correctional Scale Insulin Human Lispro 0 units 09/18/19 18:34 09/21/19 21:07 Humalog SC 3 unit .BEDTIME SLIDING SC PRN Administration Bedtime Correctional Scale Metoprolol Tartrate 12.5 mg 09/19/19 21:00 09/22/19 20:06 Lopressor PO 12.5 mg BID ANDREA Administration Promethazine HCl 25 mg 09/22/19 11:21 09/22/19 11:46 Phenergan PO 25 mg Q6H PRN Administration Nausea Saccharomyces Boulardii 250 mg 09/19/19 09:00 09/23/19 08:17 Florastor PO 250 mg DAILY ANDREA Administration - Exam General Appearance: NAD Heart: RRR, no gallops Respiratory: no wheezes, no rales Gastrointestinal: non-tender, non-distended Extremities: no edema Extremities - other findings: wound vac+ Hosp A/P - Plan Severe Sepsis due to Rt foot cellulitis/Osteomyelitis s/p I&D Hyponatremia MAURICE on CKD 2 Obesity BMI 30.8 Physical deconditioning Metastatic Colon CA Chronic Anemia s/p 1 unit PRBC HTN DM2 Afib on Warfarin/Supratherapeutic INR Diarrhea - resolved PLAN: Cont current Atbx - Vancomycin/Zosyn Vancomycin level monitoring Cont Lantus to 35 units QAM and 25 QPM with moderate sliding scale Hold Warfarin for 1 more day - INR 1.8 today Probably restart Warfarin in AM if no evidence of bleeding Cont other meds Await ID input on outpt Atbx Rx
--- NOTE | 2019-09-23 14:37 | PRG ---
DATE OF SERVICE: 09/23/2019 SUBJECTIVE: This is a 69-year-old gentleman being seen for acute kidney disease. The patient denied nausea, vomiting, or chest pain. OBJECTIVE: See above. The patient is awake and alert, in no acute distress. VITAL SIGNS: Pulse 63, breathing 16, blood pressure 136/63. GENERAL APPEARANCE AND MENTAL STATUS: Fair. HEAD/NECK: Normocephalic. Atraumatic. EYES: EOMI. No deformity. EARS: Clear. No ulcers. NOSE: Intact. No lesions. MOUTH: Clear. No discharge. THROAT: Clear. No exudate. LUNGS: Clear. No crackles. CARDIAC: S1, S2. No rub. ABDOMEN: Benign. Bowel sounds positive. GENITALIA/RECTUM: Muhammad absent. BACK/EXTREMITIES: Edema 0+. NEUROLOGICAL: Alert and motor intact. SKIN: LYMPHATICS: LABORATORY DATA: Hemoglobin is 7.6. Creatinine 1.3. ASSESSMENT AND PLAN: 1. Acute kidney injury, improved. 2. Hypertension, stable. 3. Anemia, stable. I will sign off on this patient. Please reconsult as needed. Job ID: [id number]
--- NOTE | 2019-09-23 15:49 | PRG ---
DATE OF SERVICE: 09/23/2019 SUBJECTIVE: Sitting up, being bathed at this time. He denies headaches. Mild shortness of breath. No cough. Some posterior nasal drip. No abdominal pain. No diarrhea. Voiding without difficulty. OBJECTIVE: VITAL SIGNS: Normal. O2 saturations are 99. GENERAL: Appears in no distress, oriented. LUNGS: Clear. HEART: S1 and S2. Regular rate. ABDOMEN: Soft, not distended or tender. EXTREMITIES: Foot with a negative pressure dressing. LABORATORY DATA: Creatinine is down to 1.38. White cell count 8.3 and hemoglobin 7.6. Cultures with MSSA, methicillin-sensitive staph aureus, in both samples. ASSESSMENT AND DISCUSSION: 1. Type 2 diabetes. 2. Stage IV colon cancer, on chemo, port in the right subclavian location. 3. Osteomyelitis of right 5th ray and 4th ray, status post ray amputations, now with relapse at the remnants with refractory situation. Vascular supply is adequate. We will go ahead and switch him to Rocephin, treat for 6 weeks at least after that conversion to oral antimicrobial therapy for a few more weeks. The end date of therapy is estimated 11/01. Job ID: [id number]
[2019-09-23] MEDS: cefTRIAXone\\ROCEPHIN 2 GM in Sodium Chloride 0.9% 100 ML IVPB SCH (16:30)
[2019-09-23] MEDS: Atorvastatin Calcium 20 MG TAB PO SCH (19:59)
[2019-09-23] MEDS: Insulin Glargine 25 UNITS in Pre-Filled Syringe 1 EACH SC SCH (20:00)
[2019-09-24 05:13] LABS: #Eosinphils 0.3 thou/uL (0.0-0.7); #Lymphocytes 1.4 thou/uL (1.20-3.40); #Neutrophils 6.3 thou/uL (1.40-6.50); %Basophils 0.5 % (0.0-1.0); %Eosinophils 3.7 % (0.0-10.0); %Lymphocytes 15.8 % (21.0-51.0); %Monocytes 10.8 % (0.0-10.0); %Neutrophils 69.3 % (42.0-75.0); Hemoglobin 7.1 g/dL (14.0-18.0); Mean Corpuscular HGB CONC 34.6 g/dL (32.0-36.0); Mean Corpuscular Hemoglobin 31.6 pg (27.0-31.0); Mean Corpuscular Volume 91.5 fL (78.0-98.0); Mean Platelet Volume 6.3 fL (7.4-10.4); Platelet Count 257 thou/uL (130-400); RBC Distribution Width 13.4 % (11.5-14.5); Red Blood Cell (RBC) Count 2.26 mill/uL (4.70-6.10); White Blood Cell (WBC) Count 9.1 thou/uL (4.8-10.8)
[2019-09-24 05:25] LABS: INR-International Normal Ratio 1.7; PTT 39.4 SEC (22.9-36.1); Prothrombin Time 19.5 SEC (12.0-14.7)
[2019-09-24 05:30] LABS: Anion Gap 9 mmol/L (10-20); BUN (Urea Nitrogen) 23 mg/dL (8.4-25.7); Calc. Creatinine Clearance 82 mL/min (70-130); Calcium 7.8 mg/dL (7.8-10.44); Carbon Dioxide 22 mmol/L (23-31); Chloride 107 mmol/L (98-107); Estimated GFR-MDRD 62; Glucose 140 mg/dL (83-110); Sodium 134 mmol/L (136-145)
[2019-09-24] MEDS: Metoprolol Tartrate 25 MG TAB PO SCH ×2 (08:28→20:42)
[2019-09-24] MEDS: Famotidine 20 MG TAB PO SCH ×2 (08:28→20:42)
[2019-09-24] MEDS: Saccharomyces boulardii 250 MG CAP PO SCH (08:28)
[2019-09-24] MEDS: Gabapentin 300 MG CAP PO SCH ×3 (08:28→20:42)
[2019-09-24] MEDS: Flecainide 50 MG TAB PO SCH ×2 (09:16→20:41)
[2019-09-24] MEDS: Insulin Glargine 35 UNITS in Pre-Filled Syringe 1 EACH SC SCH (09:17)
[2019-09-24] MEDS: Sodium Chloride 0.9% 1,000 ML IV SCH (11:14)
[2019-09-24 12:28] VITALS: BMI 30.5
[2019-09-24] MEDS: HumaLOG 300 UNITS/3 ML VIAL SC PRN ×3 (13:44→20:42)
[2019-09-24] MEDS: cefTRIAXone\\ROCEPHIN 2 GM in Sodium Chloride 0.9% 100 ML IVPB SCH (16:58)
[2019-09-24] MEDS: Atorvastatin Calcium 20 MG TAB PO SCH (20:42)
[2019-09-24] MEDS: Insulin Glargine 25 UNITS in Pre-Filled Syringe 1 EACH SC SCH (20:45)
[2019-09-25 05:51] LABS: Hemoglobin 6.9 g/dL (14.0-18.0)
[2019-09-25 06:02] LABS: INR-International Normal Ratio 1.4; Prothrombin Time 16.7 SEC (12.0-14.7)
--- NOTE | 2019-09-25 06:40 | PDOC.HOSPP ---
- Subjective Encounter Date: 09/25/19 Encounter Time: 14:30 Subjective: Patient seen and examined for Sepsis. No new fever/melena/hematemesis. No new complaints. No overnight events - Objective Vital Signs & Weight: Vital Signs (12 hours) Temp Pulse Resp BP Pulse Ox 09/24/19 19:58 98.3 F 66 12 145/66 H 100 Weight Admit Weight 220 lb 11.2 oz Weight 219 lb I&O: 09/23/19 09/24/19 09/25/19 06:59 06:59 06:59 Intake Total 3400 1300 2500 Output Total 2950 4200 3900 Balance 450 -2900 -1400 Result Diagrams: 09/25/19 05:37 09/24/19 04:57 Additional Labs: Accuchecks 09/25/19 09/24/19 09/24/19 05:39 19:57 16:46 POC Glucose 155 H 266 H 260 H 09/24/19 10:45 POC Glucose 225 H Hospitalist ROS - Review of Systems Respiratory: denies: cough, dry, shortness of breath, hemoptysis, SOB with excertion, pleuritic pain, sputum, wheezing, other Cardiovascular: denies: chest pain, palpitations, orthopnea, paroxysmal noc. dyspnea, edema, light headedness, other - Medication Medications: Active Medications Generic Name Dose Route Start Last Admin Trade Name Freq PRN Reason Stop Dose Admin Hydrocodone Bitart/Acetaminophen 1 tab 09/19/19 09:21 09/23/19 00:42 [place] 5/325 PO 1 tab Q4H PRN Administration Severe Pain (7-10) Atorvastatin Calcium 20 mg 09/19/19 21:00 09/24/19 20:42 Lipitor PO 20 mg HS ANDREA Administration Famotidine 20 mg 09/19/19 21:00 09/24/19 20:42 Pepcid PO 20 mg BID ANDREA Administration Flecainide Acetate 100 mg 09/19/19 21:00 09/24/19 20:41 Tambocor PO 100 mg BID ANDREA Administration Gabapentin 300 mg 09/19/19 13:00 09/24/19 13:44 Neurontin PO 300 mg 0800,1300 ANDREA Administration Gabapentin 600 mg 09/19/19 21:00 09/24/19 20:42 Neurontin PO 600 mg QPM ANDREA Administration Insulin Glargine 25 units/ 0.25 mls @ 0 mls/hr 09/22/19 21:00 09/24/19 20:45 Miscellaneous Medication SC 0.25 mls HS ANDREA Administration Insulin Glargine 35 units/ 0.35 mls @ 0 mls/hr 09/23/19 09:00 09/24/19 09:17 Miscellaneous Medication SC 0.35 mls QAM ANDREA Administration Ceftriaxone Sodium 2 gm/ 100 mls @ 200 mls/hr 09/23/19 16:00 09/24/19 16:58 Sodium Chloride IVPB 100 mls 1600 ANDREA Administration Insulin Human Lispro 0 units 09/18/19 18:34 09/24/19 17:03 Humalog SC 6 unit .MODERATE SLIDING SC PRN Administration Moderate Correctional Scale Insulin Human Lispro 0 units 09/18/19 18:34 09/24/19 20:42 Humalog SC 3 unit .BEDTIME SLIDING SC PRN Administration Bedtime Correctional Scale Metoprolol Tartrate 12.5 mg 09/19/19 21:00 09/24/19 20:42 Lopressor PO 12.5 mg BID ANDREA Administration Promethazine HCl 25 mg 09/22/19 11:21 09/22/19 11:46 Phenergan PO 25 mg Q6H PRN Administration Nausea Saccharomyces Boulardii 250 mg 09/19/19 09:00 09/24/19 08:28 Florastor PO 250 mg DAILY ANDREA Administration - Exam General Appearance: NAD Heart: RRR, no gallops Respiratory: CTAB, no rales Gastrointestinal: soft, normal bowel sounds Extremities: no edema Hosp A/P - Plan Severe Sepsis due to Rt foot cellulitis/Osteomyelitis s/p I&D Hyponatremia MAURICE on CKD 2 Obesity BMI 30.8 Physical deconditioning Metastatic Colon CA Chronic Anemia HTN DM2 Afib on Warfarin/Supratherapeutic INR on admission Diarrhea - resolved PLAN: DC IVF Transfuse PRN to maintain Hb >7 Cont Ceftriaxone per ID until Nov 01 - Patient has a mediport Await insurance approval for [facility] Cont wound care AM labs including PT/INR Cont Lantus to 35 units QAM and 25 QPM with moderate sliding scale Resume Warfarin when HH stable Cont other meds
[2019-09-25 07:53] LABS: Reticulocyte Count 2.7 % (0.5-1.5)
[2019-09-25] MEDS: Saccharomyces boulardii 250 MG CAP PO SCH (09:08)
[2019-09-25] MEDS: Gabapentin 300 MG CAP PO SCH ×3 (09:08→20:16)
[2019-09-25] MEDS: Metoprolol Tartrate 25 MG TAB PO SCH ×2 (09:08→20:16)
[2019-09-25] MEDS: Famotidine 20 MG TAB PO SCH ×2 (09:10→20:15)
[2019-09-25] MEDS: Insulin Glargine 35 UNITS in Pre-Filled Syringe 1 EACH SC SCH (09:10)
[2019-09-25] MEDS: Flecainide 50 MG TAB PO SCH ×2 (09:16→20:15)
[2019-09-25] MEDS: HumaLOG 300 UNITS/3 ML VIAL SC PRN ×3 (11:22→20:18)
--- NOTE | 2019-09-25 14:00 | PRG ---
DATE OF SERVICE: 09/25/2019 SUBJECTIVE: The patient is seen and examined at the bedside. He does not have much complaints to offer. He does not have much pain unless he gets up with PT and walks. His appetite is fair. OBJECTIVE: VITAL SIGNS: Blood pressure is 133/61, pulse is 72, temperature is 96.8, respiratory rate is 18, and O2 saturation is 100% on room air. SKIN: Looks palish. HEENT: Conjunctivae are pale. Sclerae are nonicteric. Oral mucosa is moist. LUNGS: Clear. HEART: S1 and S2 normal. No S3. No S4. ABDOMEN: Soft, nontender, and nondistended. EXTREMITIES: Right foot is wrapped with wound VAC in place. NEUROLOGICAL: He is alert and oriented x4. There is no any motor or sensory deficits. LABORATORY DATA: Labs showed hemoglobin down to 6.9, hematocrit 20.7, glycemia is ranging from 155 to 266. IMPRESSION: 1. Severe sepsis due to right foot cellulitis/osteomyelitis, status post incision and drainage. 2. Anemia, which is chronic with hemoglobin down to 6.9, today. We will transfuse him with 1 unit of packed red blood cells and check his guaiac. His retic count is elevated, which shows some response, but this could be suppressed secondary to he is not that far awake. Chemotherapy treatment he received prior to this hospitalization for his metastatic colon cancer. 3. Hypertension. 4. Diabetes mellitus type 2, not well controlled. 5. History of atrial fibrillation, on warfarin. This was not restarted yet because of his anemia and dropping hemoglobin. 6. Diarrhea, resolved. 7. Acute kidney injury on chronic kidney disease stage 2. 8. Physical deconditioning. 9. Metastatic colon cancer. PLAN: As I mentioned above, we will transfuse him with 1 unit of packed red blood cells. We will do guaiac on his stool looking for any reason why his hemoglobin is dropping. We will continue his current wound care and wound VAC dressing and will increase his insulin regimen since he is not well controlled yet and no warfarin for now. Continue PT. Job ID: [id number]
[2019-09-25] MEDS: cefTRIAXone\\ROCEPHIN 2 GM in Sodium Chloride 0.9% 100 ML IVPB SCH ×2 (16:00→18:10)
[2019-09-25] MEDS: Atorvastatin Calcium 20 MG TAB PO SCH (20:15)
[2019-09-25] MEDS: Insulin Glargine 25 UNITS in Pre-Filled Syringe 1 EACH SC SCH (20:18)
[2019-09-26 04:34] LABS: INR-International Normal Ratio 1.2; Prothrombin Time 14.7 SEC (12.0-14.7)
[2019-09-26] MEDS ORDERED: Insulin Glargine 40 UNITS in Pre-Filled Syringe 1 EACH SC SCH (09:00)
[2019-09-26] MEDS: Gabapentin 300 MG CAP PO SCH ×2 (09:08→13:19)
[2019-09-26] MEDS: Famotidine 20 MG TAB PO SCH (09:08)
[2019-09-26] MEDS: Flecainide 50 MG TAB PO SCH (09:09)
[2019-09-26] MEDS: Saccharomyces boulardii 250 MG CAP PO SCH (09:10)
[2019-09-26] MEDS: Metoprolol Tartrate 25 MG TAB PO SCH (09:17)
[2019-09-26 10:40] VITALS: BP 156/65; TEMP 98
[2019-09-26] MEDS: HumaLOG 300 UNITS/3 ML VIAL SC PRN (11:38)
[2019-09-26 12:56] LABS: Hemoglobin 8.3 g/dL (14.0-18.0)
--- NOTE | 2019-09-26 17:22 | DIS ---
DATE OF ADMISSION: 09/18/2019 DATE OF DISCHARGE: 09/26/2019 FINAL DIAGNOSES: 1. Severe sepsis due to right foot cellulitis/osteomyelitis, status post incision and drainage, on long-term Rocephin until November 01. 2. Anemia with negative guaiac stool, status post transfusion of packed red blood cells. 3. Hypertension. 4. Diabetes mellitus, type 2. 5. History of atrial fibrillation, on warfarin, currently on hold secondary to hemoglobin dropping. Advised to restart Coumadin as soon as hemoglobin is stable. 6. Diarrhea, resolved. 7. Acute kidney injury on chronic kidney disease, stage 2. 8. Physical deconditioning. 9. Metastatic colon cancer. CONSULTANTS: Melissa SCHUMACHER; Dr. Reggie Box for Infectious Disease; Dr. Sky Sam, senior it engineer; Dr. Campbell, Cardiovascular Surgery; and Dr. Dariusz Madrid, Nephrology Service. PROCEDURES PERFORMED: Resection of the fourth metatarsal with proximal phalanx base, resection of the distal fifth metatarsal with incision and drainage. HOSPITAL COURSE: The patient is a 69-year-old male, who was admitted to the hospital with infection of his right foot. He has a history of metastatic colon cancer, currently undergoing chemotherapy with past medical history also including hypertension, insulin-dependent diabetes mellitus, and atrial fibrillation. He was referred to the emergency room by home health nurse due to concerns of necrotic-appearing wound involving the right foot. Apparently, he had amputation of his fourth and fifth toes 2-1/[address] Sam[address] There were also noticed foul-smelling discharge from the area and erythematous appearance. He is getting chemotherapy under direction of Dr. Huff for his metastatic colon cancer, and last treatment was September 10, 2019. He was on 5-FU infusion, and previously, he was on oxaliplatin, but this was discontinued due to peripheral neuropathy. Also, he noticed quite significant diarrhea which started prior to this hospitalization. He denied any antibiotic use, and he did not notice any blood in his stool. In the emergency room, he was tachycardic in low 100s. He has a history of atrial fibrillation and ablation twice in the past, and currently, he was on Coumadin. Labs in the ER showed hemoglobin of 10.7, white count of 14, hematocrit 38.2, platelet count 293,000. He was hyponatremic with sodium of 127, BUN was 33, creatinine 1.92 compared to 1.6 in the past. Imaging showed x-ray of the right foot, soft tissue swelling and small pockets of gas at the postoperative site at the base of the fourth toe. He was started on Zosyn and vancomycin. He received 1 L of normal saline and got admitted to the hospital. Dr. Sam, his senior it engineer was consulted, and his warfarin was discontinued after he was seen by Dr. Sam, who decided to do operation. Lower extremity MRI was performed, which showed osteomyelitis of the distal fourth metatarsal with surrounding periosseous abscess and osteomyelitis of the remnant of the fifth metatarsal base. The patient was taken to the operating room by Dr. Sma on September 20, who did incision and drainage with resection of the distal fourth metatarsal and remaining base of proximal phalanx as well as resection of the remaining fifth metatarsal of the right foot. The patient was also seen by Dr. Box for ID consultation. It was not clear since his microbiology was different this time than the previous time, and this was not clear whether this was De Ricky process or it was recrudescence of the old one. His 2 blood cultures came back negative, but bacterial culture from the right foot specimen grew Staphylococcus aureus which was pansensitive, and there was also growth of Enterococcus faecalis which was sensitive to ampicillin, gentamicin, imipenem, penicillin, piperacillin, streptomycin, and vancomycin. Because of his acute kidney injury on the top of chronic kidney injury, Dr. Madrid, his soil sort worker was consulted. It was felt that his hyponatremia was due to renal failure, but there was no any indication for dialysis. Also, he was seen by Melissa SCHUMACHER for Dr. Huff for Oncology evaluation, and postponed treatment for his colon cancer with metastases with 5-FU was recommended since he had acute infection at the present time. Subsequently, the patient was seen by Dr. Campbell for vascular evaluation, and since the patient had good pulses in both feet, there was no any need for any further diagnostic workup. Because of unsteady hemoglobin level postoperatively, he was not restarted on warfarin yet. He is in atrial fibrillation with ventricular rate controlled below 100. His antibiotics were switched to Rocephin for 6 weeks. Subsequently, he was transfused with 1 unit of packed red blood cells since his hemoglobin dropped to 6.8, but his guaiac came back negative. His hemoglobin is up to 8.3 today posttransfusion. He is doing well. He is in good general spirit. His appetite is fair. He is accepted by Dr. Bustamante at [facility], and he is going there. DIET: He is going to stay on diabetic diet. ACTIVITIES: As tolerated. He will get PT and OT. MEDICATIONS: His medications at the time of discharge: 1. Saccharomyces boulardii, which is Florastor 250 mg once a day. 2. Polyethylene glycol, MiraLAX 17 g p.r.n. as needed. 3. Metoprolol tartrate 12.5 mg twice a day. 4. 40 units of insulin glargine in the morning and 25 units of glargine in the evening. 5. Hydrocodone bitartrate/acetaminophen 1 tablet q.4 hours p.r.n. as needed. 6. Gabapentin 600 mg q.p.m. and 300 mg twice a day. 7. Flecainide 100 mg twice a day. 8. Famotidine 20 mg once a day. 9. Rocephin 2 g every 24 hours until November 01. 10. Atorvastatin 20 mg at bedtime. 11. Tylenol 650 mg q.4 hours p.r.n. as needed. DISPOSITION: He is discharged home in good condition. TIME SPENT: Time spent on this discharge is more than 30 minutes, and the case was discussed with Dr. Bustamante, and he is going to check his hemoglobin couple of times, and if it is not dropping, he will start him on warfarin for his atrial fibrillation, and also, they will call Dr. Sam's office to let him know that he is at [facility] and ask for the followup with him. Job ID: [id number]
--- NOTE | 2019-09-27 09:10 | PQF ---
RAUDEL OCASIO KARISHMA [id number] CLINICAL DOCUMENTATION CLARIFICATION FORM: POST DISCHARGE Addendum to original discharge summary date: ____ Late entry note date: __ PLEASE MAKE SURE YOU ARE GETTING THE CORRECT PHYSICIAN. NOT MY PATIENT!!!!! DATE:09/27/2019 ATTN: TEGAN SALINAS Please exercise your independent, professional judgment in responding to the clarification form. Clinical indicators are provided on the bottom of this form for your review Diagnosis: Sepsis Present on Admission (POA): [ ] Yes [ ] No [ ] Unable to determine Coding guidelines require hospitals to identify whether a diagnosis was present on admission (POA) or not. To accurately assign the appropriate POA indicator, this information must be clearly documented within the medical record. CLINICAL INDICATORS - SIGNS / SYMPTOMS / LABS [id number] in ED on 09/18 by Citlalli Perez Rt foot cellulitis-Documented in ED on 09/18 by Citlalli Perez Severe sepsis due to RT foot cellulitis- Documented in Hospitalist progress note on 09/19 by Jayna garland MAURICE on CKD 2-Documented in Hospitalist progress note on 09/19 by Jayna garland Osteomyelitis with abscess left fourth metatarsal and residual Osteomyelitis in the fifth metatarsal right foot-Documented in Op note on 09/20 by Sky Sam RISK FACTORS: MAURICE on CKD 2-Documented in Hospitalist progress note on 09/19 by Jayna garland HTN-Documented in Hospitalist progress note on 09/19 by Jayna garland DM-Documented in Hospitalist progress note on 09/19 by Jayna garland TREATMENT: Cont Vancomycin and zosyn-Documented in Hospitalist progress note on 09/19 by Jayna garland Resection of fourth and fifth metatarsal-Documented in Op note on 09/20 by Sky Sam [employer] Win[employer] (This form is maintained as a part of the permanent medical record) 2014 [employer] All Rights Reserved [email or web address] [not provided] [email or web address]
== END 2019-09-26 17:25 | disposition swing bed (61) | DRG 616 ==
LOC: ERS 14:43 → ONC 20:26
PROVIDERS: ADMIT Internal Medicine; ATTEND Internal Medicine
PROC: 0Y6M0ZD Detachment at Right Foot, Partial 4th Ray, Open Approach (ICD-10-PCS; principal; 2019-09-20)
PROC: 0Y6M0ZF Detachment at Right Foot, Partial 5th Ray, Open Approach (ICD-10-PCS; 2019-09-20)
DX: E11.69 Type 2 diabetes mellitus with other specified complication (principal); A41.9 Sepsis, unspecified organism; R65.20 Severe sepsis without septic shock; L03.115 Cellulitis of right lower limb; M86.8X6 Other osteomyelitis, lower leg; C18.9 Malignant neoplasm of colon, unspecified; E87.1 Hypo-osmolality and hyponatremia; Z16.20 Resistance to unspecified antibiotic; N17.0 Acute kidney failure with tubular necrosis; R19.7 Diarrhea, unspecified; E78.5 Hyperlipidemia, unspecified; I13.10 Hypertensive heart and chronic kidney disease without heart failure, with stage 1 through stage 4 chronic kidney disease, or unspecified chronic kidney disease; E11.22 Type 2 diabetes mellitus with diabetic chronic kidney disease; I48.91 Unspecified atrial fibrillation; E86.0 Dehydration; E66.9 Obesity, unspecified; Z68.30 Body mass index [BMI] 30.0-30.9, adult; D64.9 Anemia, unspecified; G47.30 Sleep apnea, unspecified; G25.81 Restless legs syndrome; N18.2 Chronic kidney disease, stage 2 (mild); B95.61 Methicillin susceptible Staphylococcus aureus infection as the cause of diseases classified elsewhere; B95.2 Enterococcus as the cause of diseases classified elsewhere; Z90.49 Acquired absence of other specified parts of digestive tract
CPT/HCPCS: 36415; 36416; 36430; 80048; 80053; 80202; 82274; 83605; 83690; 83735; 83930; 83935; 84300; 85014; 85018; 85025; 85046; 85610; 85652; 85730; 86140; 86850; 86900; 86901; 87040; 87070; 87077; 87186; 87205; 94760; 96365; 96367; 96375; A9579; J0696; J1815; J2250; J2405; J2543; J2550; J2704; J3010; J3370; J3490; J7050; P9016; Q0169; S0020; S0028

== ENCOUNTER 2019-11-10 01:43 | Inpatient (IN) | payer MEDICARE, SELFPAY ==
[2019-11-10] MEDS ORDERED: cefTRIAXone\\ROCEPHIN 1 GM VIAL ONE (02:01)
[2019-11-10] MEDS ORDERED: Sodium Chloride 0.9% 1,000 ML IV SCH (04:35)
[2019-11-10 04:47] VITALS: BMI 32.3
[2019-11-10] MEDS ORDERED: HumaLOG 300 UNITS/3 ML VIAL SC PRN (05:57)
[2019-11-10] MEDS ORDERED: Dextrose 50% Abboject 50 ML SYRINGE SLOW IVP PRN (05:57)
[2019-11-10] MEDS ORDERED: Dextrose 5% in Water 1,000 ML IV PRN (05:57)
[2019-11-10 08:16] LABS: #Basophils 0.1 thou/uL (0.0-0.2); #Eosinphils 0.2 thou/uL (0.0-0.7); #Lymphocytes 1.4 thou/uL (1.20-3.40); #Monocytes 1.3 thou/uL (0.11-0.59); #Neutrophils 11.2 thou/uL (1.40-6.50); %Basophils 0.4 % (0.0-1.0); %Eosinophils 1.7 % (0.0-10.0); %Monocytes 9.2 % (0.0-10.0); %Neutrophils 78.7 % (42.0-75.0); Hemoglobin 9.2 g/dL (14.0-18.0); Mean Corpuscular Hemoglobin 29.7 pg (27.0-31.0); Platelet Count 193 thou/uL (130-400); RBC Distribution Width 13.4 % (11.5-14.5); Red Blood Cell (RBC) Count 3.11 mill/uL (4.70-6.10); White Blood Cell (WBC) Count 14.2 thou/uL (4.8-10.8)
[2019-11-10 08:23] LABS: INR-International Normal Ratio 2.4; Prothrombin Time 26.1 SEC (12.0-14.7)
[2019-11-10 08:31] LABS: Anion Gap 12 mmol/L (10-20); BUN (Urea Nitrogen) 41 mg/dL (8.4-25.7); Calc. Creatinine Clearance 67 mL/min (70-130); Calcium 8.7 mg/dL (7.8-10.44); Carbon Dioxide 20 mmol/L (23-31); Chloride 105 mmol/L (98-107); Estimated GFR-MDRD 48; Glucose 160 mg/dL (83-110); Potassium 4.3 mmol/L (3.5-5.1); Sodium 133 mmol/L (136-145)
[2019-11-10] MEDS: Gabapentin 300 MG CAP PO SCH ×3 (08:48→20:51)
[2019-11-10] MEDS: Flecainide 50 MG TAB PO SCH ×2 (08:48→20:42)
[2019-11-10] MEDS: Metoprolol Tartrate 25 MG TAB PO SCH ×2 (08:48→20:41)
[2019-11-10] MEDS: Insulin Glargine 43 UNITS in Pre-Filled Syringe 1 EACH SC SCH (08:49)
[2019-11-10] MEDS ORDERED: Vancomycin HCl 1 GM in Premix Bag 1 BAG IVPB SCH (09:00)
[2019-11-10] MEDS: HumaLOG 300 UNITS/3 ML VIAL SC PRN ×2 (11:44→18:03)
[2019-11-10] MEDS: Sodium Chloride 0.9% 1,000 ML IV SCH (13:00)
[2019-11-10] MEDS ORDERED: cefTRIAXone\\ROCEPHIN 2 GM in Sodium Chloride 0.9% 100 ML IVPB SCH (14:00)
[2019-11-10] MEDS ORDERED: Vancomycin 1.5 GRAM/300 ML BAG 1.5 GM in Premix Bag 1 BAG IVPB SCH (16:00)
[2019-11-10] MEDS: Ondansetron ODT 4 MG TAB PO PRN (18:06)
[2019-11-10] MEDS: Atorvastatin Calcium 20 MG TAB PO SCH (20:42)
[2019-11-10] MEDS: Insulin Glargine 20 UNITS in Pre-Filled Syringe 1 EACH SC SCH (20:47)
[2019-11-10] MEDS ORDERED: Warfarin Sodium 5 MG TAB PO SCH (21:00)
--- NOTE | 2019-11-10 22:38 | PDOC.HOSPP ---
- Subjective Subjective: Feeling ok. Foot is actually doing well. - Objective Vital Signs & Weight: Vital Signs (12 hours) Temp Pulse Resp BP Pulse Ox 11/10/19 19:20 99.1 F 73 16 140/64 99 11/10/19 14:50 98.4 F 76 16 127/60 99 11/10/19 11:55 98.8 F 69 14 122/61 99 Weight Admit Weight 225 lb Weight 225 lb I&O: 11/09/19 11/10/19 11/11/19 06:59 06:59 06:59 Intake Total 2690 Output Total 1850 Balance 840 Result Diagrams: 11/10/19 07:30 11/10/19 07:31 Additional Labs: Accuchecks 11/10/19 11/10/19 11/10/19 20:41 17:24 11:03 POC Glucose 195 H 213 H 272 H Hospitalist ROS - Medication Medications: Active Medications Generic Name Dose Route Start Last Admin Trade Name Freq PRN Reason Stop Dose Admin Atorvastatin Calcium 20 mg 11/10/19 21:00 11/10/19 20:42 Lipitor PO 20 mg HS ANDREA Administration Flecainide Acetate 100 mg 11/10/19 09:00 11/10/19 20:42 Tambocor PO 100 mg BID ANDREA Administration Gabapentin 300 mg 11/10/19 09:00 11/10/19 20:51 Neurontin PO Not Given BID ANDREA Gabapentin 600 mg 11/10/19 21:00 11/10/19 20:41 Neurontin PO 600 mg QPM ANDREA Administration Ceftriaxone Sodium 2 gm/ 100 mls @ 200 mls/hr 11/10/19 14:00 11/10/19 14:15 Sodium Chloride IVPB 100 mls Q24HR ANDREA Administration Insulin Glargine 20 units/ 0.2 mls @ 0 mls/hr 11/10/19 21:00 11/10/19 20:47 Miscellaneous Medication SC 0.2 mls HS ANDREA Administration Insulin Glargine 43 units/ 0.43 mls @ 0 mls/hr 11/10/19 09:00 11/10/19 08:49 Miscellaneous Medication SC 0.43 mls QAM ANDREA Administration Vancomycin HCl 1.5 gm/ Device 300 mls @ 200 mls/hr 11/10/19 16:00 11/10/19 16 :33 IVPB 300 mls 1600 ANDREA Administration Sodium Chloride 1,000 mls @ 90 mls/hr 11/10/19 13:00 11/10/19 13:00 Normal Saline 0.9% IV 1,000 mls .Q11H7M ANDREA Administration Insulin Human Lispro 0 units 11/10/19 05:57 11/10/19 18:03 Humalog SC 4 unit .MODERATE SLIDING SC PRN Administration Moderate Correctional Scale Metoprolol Tartrate 12.5 mg 11/10/19 09:00 11/10/19 20:41 Lopressor PO 12.5 mg BID ANDREA Administration Ondansetron HCl 4 mg 11/10/19 05:45 11/10/19 18:06 Zofran Odt PO 4 mg Q6H PRN Administration Nausea/Vomiting Warfarin Sodium 5 mg 11/10/19 21:00 11/10/19 21:16 Coumadin PO 11/10/19 23:00 5 mg NOW ANDREA Administration - Exam General Appearance: NAD, awake alert Heart: RRR, no murmur, no gallops, no rubs, normal peripheral pulses Respiratory: CTAB, no wheezes, no rales, no ronchi, normal chest expansion, no tachypnea, normal percussion Extremities - other findings: Right foot with lateral dressing, but no erythema or drainage. Hosp A/P (1) Colon cancer Code(s): C18.9 - MALIGNANT NEOPLASM OF COLON, UNSPECIFIED Status: Acute (2) Anemia of chronic disease Code(s): D63.8 - ANEMIA IN OTHER CHRONIC DISEASES CLASSIFIED ELSEWHERE Status : Chronic (3) Atrial fibrillation Code(s): I48.91 - UNSPECIFIED ATRIAL FIBRILLATION Status: Chronic Qualifiers: (4) CKD (chronic kidney disease) stage 3, GFR 30-59 ml/min Code(s): N18.3 - CHRONIC KIDNEY DISEASE, STAGE 3 (MODERATE) Status: Chronic (5) Diabetes mellitus type 2, insulin dependent Code(s): E11.9 - TYPE 2 DIABETES MELLITUS WITHOUT COMPLICATIONS; Z79.4 - FPC (CURRENT) USE OF INSULIN Status: Chronic (6) Hypertension Code(s): I10 - ESSENTIAL (PRIMARY) HYPERTENSION Status: Chronic Qualifiers: (7) ESE (obstructive sleep apnea) Code(s): G47.33 - OBSTRUCTIVE SLEEP APNEA (ADULT) (PEDIATRIC) Status: Chronic (8) Obesity (BMI 30-39.9) Code(s): E66.9 - OBESITY, UNSPECIFIED Status: Chronic (9) UTI (urinary tract infection) Status: Resolved - Plan suspect UTI as primary source of infection. He has bladder dysfunction from the prior surgery for colon cancer. Self-caths. Follow up cultures and tailor abx as appropriate. Foot looks ok. Stable afib. Can transfer to onc.
[2019-11-11] MEDS: Metoprolol Tartrate 25 MG TAB PO SCH ×2 (08:41→21:05)
[2019-11-11] MEDS: Flecainide 50 MG TAB PO SCH ×2 (08:41→21:06)
[2019-11-11] MEDS: Gabapentin 300 MG CAP PO SCH ×3 (08:42→21:05)
[2019-11-11] MEDS: Insulin Glargine 43 UNITS in Pre-Filled Syringe 1 EACH SC SCH (08:42)
[2019-11-11] MEDS: HumaLOG 300 UNITS/3 ML VIAL SC PRN ×2 (11:31→17:05)
[2019-11-11] MEDS: Sodium Chloride 0.9% 1,000 ML IV SCH ×3 (11:34→21:09)
[2019-11-11] MEDS: Piperacillin/Tazobactam 3.375 GM in Sodium Chloride 0.9% 100 ML IVPB SCH ×2 (12:34→17:04)
--- NOTE | 2019-11-11 16:29 | PDOC.HOSPP ---
- Subjective Subjective: Feels well. No complaints. - Objective Vital Signs & Weight: Vital Signs (12 hours) Temp Pulse Resp BP Pulse Ox 11/11/19 15:42 98.3 F 70 15 197/86 H 98 11/11/19 11:35 97.8 F 65 16 138/71 98 11/11/19 07:10 98.4 F 66 14 140/67 97 Weight Admit Weight 225 lb Weight 225 lb I&O: 11/10/19 11/11/19 11/12/19 06:59 06:59 06:59 Intake Total 4040 Output Total 3000 Balance 1040 Result Diagrams: 11/10/19 07:30 11/10/19 07:31 Additional Labs: Accuchecks 11/11/19 11/11/19 11/10/19 10:44 05:36 20:41 POC Glucose 243 H 204 H 195 H 11/10/19 17:24 POC Glucose 213 H Hospitalist ROS - Medication Medications: Active Medications Generic Name Dose Route Start Last Admin Trade Name Freq PRN Reason Stop Dose Admin Atorvastatin Calcium 20 mg 11/10/19 21:00 11/10/19 20:42 Lipitor PO 20 mg HS ANDREA Administration Flecainide Acetate 100 mg 11/10/19 09:00 11/11/19 08:41 Tambocor PO 100 mg BID ANDREA Administration Gabapentin 300 mg 11/10/19 09:00 11/11/19 08:42 Neurontin PO 300 mg BID ANDREA Administration Gabapentin 600 mg 11/10/19 21:00 11/10/19 20:41 Neurontin PO 600 mg QPM ANDREA Administration Insulin Glargine 20 units/ 0.2 mls @ 0 mls/hr 11/10/19 21:00 11/10/19 20:47 Miscellaneous Medication SC 0.2 mls HS ANDREA Administration Insulin Glargine 43 units/ 0.43 mls @ 0 mls/hr 11/10/19 09:00 11/11/19 08:42 Miscellaneous Medication SC 0.43 mls QAM ANDREA Administration Sodium Chloride 1,000 mls @ 90 mls/hr 11/10/19 13:00 11/11/19 11:34 Normal Saline 0.9% IV 1,000 mls .Q11H7M ANDREA Administration Piperacillin Sod/Tazobactam 100 mls @ 200 mls/hr 11/11/19 12:00 11/11/19 12: 34 Sod 3.375 gm/ Sodium Chloride IVPB 100 mls Q6HR ANDREA Administration Insulin Human Lispro 0 units 11/10/19 05:57 11/11/19 11:31 Humalog SC 4 unit .MODERATE SLIDING SC PRN Administration Moderate Correctional Scale Metoprolol Tartrate 12.5 mg 11/10/19 09:00 11/11/19 08:41 Lopressor PO 12.5 mg BID ANDREA Administration Ondansetron HCl 4 mg 11/10/19 05:45 11/10/19 18:06 Zofran Odt PO 4 mg Q6H PRN Administration Nausea/Vomiting - Exam General Appearance: NAD, awake alert Heart: no murmur, no gallops, no rubs, normal peripheral pulses, irregular Respiratory: CTAB, no wheezes, no rales, no ronchi, normal chest expansion, no tachypnea, normal percussion Gastrointestinal: soft, non-tender, non-distended, normal bowel sounds, no palpable masses, no hepatomegaly, no splenomegaly, no bruit Extremities: no cyanosis, no clubbing, no edema Extremities - other findings: Right foot dressed. No erythema or drainage. Musculoskeletal: normal tone, normal strength Psychiatric: normal affect, normal behavior, A&O x 3 Hosp A/P (1) UTI (urinary tract infection) Status: Resolved (2) Colon cancer Code(s): C18.9 - MALIGNANT NEOPLASM OF COLON, UNSPECIFIED Status: Acute (3) Anemia of chronic disease Code(s): D63.8 - ANEMIA IN OTHER CHRONIC DISEASES CLASSIFIED ELSEWHERE Status : Chronic (4) Atrial fibrillation Code(s): I48.91 - UNSPECIFIED ATRIAL FIBRILLATION Status: Chronic Qualifiers: (5) CKD (chronic kidney disease) stage 3, GFR 30-59 ml/min Code(s): N18.3 - CHRONIC KIDNEY DISEASE, STAGE 3 (MODERATE) Status: Chronic (6) Diabetes mellitus type 2, insulin dependent Code(s): E11.9 - TYPE 2 DIABETES MELLITUS WITHOUT COMPLICATIONS; Z79.4 - ACUTE CARE ASSISTANT (CURRENT) USE OF INSULIN Status: Chronic (7) Hypertension Code(s): I10 - ESSENTIAL (PRIMARY) HYPERTENSION Status: Chronic Qualifiers: (8) ESE (obstructive sleep apnea) Code(s): G47.33 - OBSTRUCTIVE SLEEP APNEA (ADULT) (PEDIATRIC) Status: Chronic (9) Obesity (BMI 30-39.9) Code(s): E66.9 - OBESITY, UNSPECIFIED Status: Chronic - Plan suspect UTI as primary source of infection. He has bladder dysfunction from the prior surgery for colon cancer. Self-caths. Cx with presumptive pseudomonas. Change abx to Zosyn. Has drug interactions with quinolones. Foot looks ok. Stable afib. Can transfer to onc.
[2019-11-11] MEDS: Warfarin Sodium 5 MG TAB PO SCH (17:05)
[2019-11-11] MEDS: Insulin Glargine 20 UNITS in Pre-Filled Syringe 1 EACH SC SCH (21:05)
[2019-11-11] MEDS: Atorvastatin Calcium 20 MG TAB PO SCH (21:06)
[2019-11-12] MEDS: Piperacillin/Tazobactam 3.375 GM in Sodium Chloride 0.9% 100 ML IVPB SCH ×4 (00:37→17:58)
[2019-11-12] MEDS: Ondansetron PF 4 MG/2 ML Vial IVP PRN (00:39)
[2019-11-12 06:18] LABS: INR-International Normal Ratio 2.1; Prothrombin Time 23.4 SEC (12.0-14.7)
--- NOTE | 2019-11-12 07:34 | HP ---
PRIMARY CARE PHYSICIAN: Unknown. CHIEF COMPLAINT: Fevers, chills and shakes starting afternoon of the ER admission, transfer from [facility] for further evaluation. HISTORY OF PRESENT ILLNESS: This is a 69-year-old male with a past medical history of metastatic colon cancer to liver and lung with last chemotherapy in August 2019; paroxysmal atrial fibrillation, on Coumadin; recurrent osteomyelitis involving right foot with multiple debridements, most recently completing a prolonged course of IV antibiotics approximately 1 week ago; hypertension; type 2 insulin-dependent diabetes mellitus; dyslipidemia; obstructive sleep apnea, who was brought into [facility] by spouse after experiencing chills and shakes and fevers of 102 at home this afternoon prompting evaluation. The patient reports since recent completion of prolonged antibiotics, he was unable to fill his suppressive antibiotic therapy with Keflex due to some insurance setbacks. He had [facility] come out to the house this morning with unremarkable wound dressing change with overlying collagen dressing. Later this afternoon, he reported having chills and shakes and the absence of sweats, and his spouse checked an oral temperature which was 102 Fahrenheit. In the tertiary ER, repeat temperature was 102.6 with labs revealing leukocytosis and BUN and creatinine of 47/1.84. Of note, patient has a neurogenic bladder secondary to prior colon cancer surgery and intermittently self catheterizes 4 times per day. Urinalysis suggested urinary tract infection in the absence of any urinary symptoms. The patient was also noted to be tachycardic and there was concern for sepsis. He was administered IV fluid boluses. Blood cultures were obtained and he was administered IV vancomycin and transferred to [facility] ER for further evaluation. In our ER, he was administered IV Rocephin and admitted for further inpatient evaluation. At bedside, the patient corroborates history. He offers no other acute complaints. He denies any other skin or soft tissue infections. He thinks his foot has been doing well up until this point. He denies any discomfort in his right chest wall port site. Denies any recent illnesses or sick contacts. PAST MEDICAL HISTORY: Metastatic colon cancer with liver and lung metastasis with last chemotherapy in August 2019, history of initial colon cancer in 2008 requiring colectomy and chemotherapy with partial liver resection, neurogenic bladder secondary to prior colectomy, recurrent right foot osteomyelitis requiring multiple debridements, most recently completing a prolonged course of antibiotics 1 week ago, atrial fibrillation, on Coumadin, requiring prior ablation, hypertension, dyslipidemia, type 2 diabetes mellitus insulin dependent, obstructive sleep apnea, on CPAP, morbid obesity, restless legs syndrome. PAST SURGICAL HISTORY: Partial colectomy and liver resection for colon cancer in 2008, chemo port placement, cholecystectomy, atrial fibrillation ablations, herniorrhaphy, right fourth digit amputation, multiple right foot debridements for osteomyelitis. SOCIAL HISTORY: The patient is , lives with his spouse. He denies any tobacco, alcohol, or drug use. He does not use any assistive device to ambulate. He uses nighttime CPAP. ALLERGIES: NONE DOCUMENTED. REVIEW OF SYSTEMS: Pertinent positives as per HPI. Remainder of review of systems otherwise negative. MEDICATIONS: Will be reviewed as per admission medication reconciliation. FAMILY HISTORY: The patient does not know his family history as he was adopted. PHYSICAL EXAMINATION: VITAL SIGNS: In the ER, T-max 102.6, current temperature 98 Fahrenheit, pulse 88, current blood pressure 141/67, oxygen saturation 100% room air, respirations 14 to 18 unlabored. GENERAL APPEARANCE: Elderly, male who is awake, alert, oriented, coherent, lucid, hard of hearing, but nontoxic in appearance. HEENT: Normocephalic, atraumatic. No facial asymmetry. Pupils equally round. Extraocular muscles intact. Mucous membranes moist. NECK: Supple. CARDIOVASCULAR: S1, S2. Regular rate and rhythm. No harsh murmurs. Patient right chest wall chemo port noted. LUNGS: Bilateral equal air entry on anterior auscultation. Nonlabored respirations. No rales. ABDOMEN: Soft, nontender, nondistended. Prior surgical scars noted. No peritoneal sign appreciated. EXTREMITIES: There is a linear healing incision site on the right lateral dorsum of the foot. Circumferential to this area is an area of erythema and warmth. Right foot dorsalis pedis pulse is palpable. No other cyanosis or deformities noted to bilateral lower extremities. SKIN: Warm to touch without rash or abrasion or pallor. Noted changes overlying right lateral foot. LABORATORY DATA: From November 09, 2019, WBC 16.8, H and H 9.4/20.6, platelets of 206. Differential with 83% neutrophils. Chemistry: Sodium 132, potassium 5.1, chloride 101, bicarb 20, glucose 207, BUN and creatinine 47/1.84, GFR 36. LFTs unremarkable. CRP 9.04. Urinalysis reveals slightly cloudy appearance, positive nitrites, large leukocyte esterases, greater than 50 white blood cells, 2+ bacteria. IMAGING: Chest x-ray was obtained on 11/09/2019. Official results pending. ASSESSMENT: 1. Sepsis of unspecified etiology. Suspect recurrent skin and soft tissue infection and possible early osteomyelitis involving the right lateral foot. Possible concomitant urinary tract infection in a patient who self catheterizes himself most likely. The patient will be admitted as inpatient status and placed on telemetry monitoring. He has received early goal-directed therapy with IV fluid boluses and broad-spectrum antibiotics with IV vancomycin and IV Rocephin. At this time, we will continue similar antibiotic regimen. We will consult Infectious Diseases for antimicrobial management and evaluate for source of infection. The patient recently completed a prolonged course of IV antibiotics for right lateral foot osteomyelitis and is noted to have new circumferential erythema and warmth overlying the affected area. Further MR imaging may be necessary for definitive therapy if ongoing concerns of recurrent or persistent infection are of concern. The patient was instructed to take suppressive antibiotics following completion of IV antibiotics, but never filled his Keflex. At this time, we will continue IV fluids, place indwelling Muhammad catheter to ensure for proper urine emptying with neurogenic bladder, follow cultures, history of recurrent right foot osteomyelitis requiring recent completion of all antibiotics. 2. Metastatic colon cancer with liver and lung metastasis. The patient notes initial history of colon cancer in 2008 requiring partial colectomy and chemotherapy and relapse 10 years later. Last chemotherapy was in August 2019 due to multiple setbacks from infection. 3. Paroxysmal atrial fibrillation. We will continue Coumadin and monitor INR. The patient has had prior failed ablations. 4. Type 2 diabetes mellitus insulin dependent. Restart basal and long insulin. Monitor Accu-Cheks for euglycemia, obesity. 5. Obstructive sleep apnea. Continue the patient's CPAP coagulation. 6. Check a.m. labs, . Job ID: [id number]
[2019-11-12] MEDS: Insulin Glargine 43 UNITS in Pre-Filled Syringe 1 EACH SC SCH (08:43)
[2019-11-12] MEDS: Metoprolol Tartrate 25 MG TAB PO SCH ×2 (08:44→20:48)
[2019-11-12] MEDS: Flecainide 50 MG TAB PO SCH ×2 (08:45→21:05)
[2019-11-12] MEDS: Gabapentin 300 MG CAP PO SCH ×3 (08:45→20:48)
[2019-11-12] MEDS: Sodium Chloride 0.9% 1,000 ML IV SCH ×2 (08:50→20:47)
[2019-11-12] MEDS: HumaLOG 300 UNITS/3 ML VIAL SC PRN ×2 (13:02→16:30)
[2019-11-12] MEDS: Warfarin Sodium 5 MG TAB PO SCH (16:32)
--- NOTE | 2019-11-12 16:52 | PDOC.HOSPP ---
- Subjective Subjective: Doing well. Concerned about his BP and glucose. Asymptomatic otherwise. - Objective Vital Signs & Weight: Vital Signs (12 hours) Temp Pulse Resp BP Pulse Ox 11/12/19 16:00 98.5 F 72 18 156/74 H 98 11/12/19 11:54 98 F 71 18 144/67 H 99 11/12/19 08:00 98.3 F 69 18 136/65 97 Weight Admit Weight 225 lb Weight 225 lb I&O: 11/11/19 11/12/19 11/13/19 06:59 06:59 06:59 Intake Total 4040 2100 Output Total 3000 2300 Balance 1040 -200 Result Diagrams: 11/10/19 07:30 11/10/19 07:31 Additional Labs: Accuchecks 11/12/19 11/12/19 11/12/19 16:16 10:53 05:51 POC Glucose 234 H 230 H 155 H 11/11/19 11/11/19 20:38 16:42 POC Glucose 190 H 264 H Hospitalist ROS - Medication Medications: Active Medications Generic Name Dose Route Start Last Admin Trade Name Freq PRN Reason Stop Dose Admin Atorvastatin Calcium 20 mg 11/10/19 21:00 11/11/19 21:06 Lipitor PO 20 mg HS ANDREA Administration Flecainide Acetate 100 mg 11/10/19 09:00 11/12/19 08:45 Tambocor PO 100 mg BID ANDREA Administration Gabapentin 300 mg 11/10/19 09:00 11/12/19 08:45 Neurontin PO 300 mg BID ANDREA Administration Gabapentin 600 mg 11/10/19 21:00 11/11/19 21:05 Neurontin PO 600 mg QPM ANDREA Administration Insulin Glargine 20 units/ 0.2 mls @ 0 mls/hr 11/10/19 21:00 11/11/19 21:05 Miscellaneous Medication SC 0.2 mls HS ANDREA Administration Insulin Glargine 43 units/ 0.43 mls @ 0 mls/hr 11/10/19 09:00 11/12/19 08:43 Miscellaneous Medication SC 0.43 mls QAM ANDREA Administration Sodium Chloride 1,000 mls @ 90 mls/hr 11/10/19 13:00 11/12/19 08:50 Normal Saline 0.9% IV 1,000 mls .Q11H7M ANDREA Administration Piperacillin Sod/Tazobactam 100 mls @ 200 mls/hr 11/11/19 12:00 11/12/19 12: 54 Sod 3.375 gm/ Sodium Chloride IVPB 100 mls Q6HR ANDREA Administration Insulin Human Lispro 0 units 11/10/19 05:57 11/12/19 16:30 Humalog SC 4 unit .MODERATE SLIDING SC PRN Administration Moderate Correctional Scale Metoprolol Tartrate 12.5 mg 11/10/19 09:00 11/12/19 08:44 Lopressor PO 12.5 mg BID ANDREA Administration Ondansetron HCl 4 mg 11/10/19 05:45 11/10/19 18:06 Zofran Odt PO 4 mg Q6H PRN Administration Nausea/Vomiting Ondansetron HCl 4 mg 11/10/19 05:45 11/12/19 00:39 Zofran IVP 4 mg Q6H PRN Administration Nausea/Vomiting Warfarin Sodium 5 mg 11/11/19 17:00 11/12/19 16:32 Coumadin PO 5 mg 1700 ANDREA Administration - Exam General Appearance: NAD, awake alert Heart: no murmur, no gallops, no rubs, irregular Respiratory: CTAB, no wheezes, no rales, no ronchi, normal chest expansion, no tachypnea, normal percussion Extremities: no cyanosis, no clubbing, no edema Extremities - other findings: Right foot dressed. Skin: normal turgor Musculoskeletal: normal tone, normal strength, no muscle wasting Psychiatric: normal affect, normal behavior, A&O x 3 Hosp A/P (1) UTI (urinary tract infection) Status: Resolved (2) Colon cancer Code(s): C18.9 - MALIGNANT NEOPLASM OF COLON, UNSPECIFIED Status: Acute (3) Anemia of chronic disease Code(s): D63.8 - ANEMIA IN OTHER CHRONIC DISEASES CLASSIFIED ELSEWHERE Status : Chronic (4) Atrial fibrillation Code(s): I48.91 - UNSPECIFIED ATRIAL FIBRILLATION Status: Chronic Qualifiers: (5) CKD (chronic kidney disease) stage 3, GFR 30-59 ml/min Code(s): N18.3 - CHRONIC KIDNEY DISEASE, STAGE 3 (MODERATE) Status: Chronic (6) Diabetes mellitus type 2, insulin dependent Code(s): E11.9 - TYPE 2 DIABETES MELLITUS WITHOUT COMPLICATIONS; Z79.4 - SEED SALES MANAGER (CURRENT) USE OF INSULIN Status: Chronic (7) Hypertension Code(s): I10 - ESSENTIAL (PRIMARY) HYPERTENSION Status: Chronic Qualifiers: (8) ESE (obstructive sleep apnea) Code(s): G47.33 - OBSTRUCTIVE SLEEP APNEA (ADULT) (PEDIATRIC) Status: Chronic (9) Obesity (BMI 30-39.9) Code(s): E66.9 - OBESITY, UNSPECIFIED Status: Chronic - Plan suspect UTI as primary source of infection. He has bladder dysfunction from the prior surgery for colon cancer. Self-caths. Cx with pseudomonas. Continue IV until DC. Hope to use Cefdinir as it is sensitive to third gen cef's. Quinolones interact with flecainide. Foot looks ok. Stable afib. Continue flecainide and warfarin. He tells me he is on amlodipine at home. Not on his home med list or his pharmacy list. Mostly has isolated systolic htn with wide pulse pressure. Amlodipine is a good choice. Will give him the lowest dose of that until we get some clarification on his dose.
[2019-11-12] MEDS ORDERED: Amlodipine 5 MG TAB PO SCH (17:00)
[2019-11-12] MEDS: Acetaminophen 325 MG TAB PO PRN (18:02)
[2019-11-12] MEDS: Atorvastatin Calcium 20 MG TAB PO SCH (20:48)
[2019-11-12] MEDS: HYDROcodone/Acetaminophen 5/325 mg Tablet PO PRN (20:48)
[2019-11-12] MEDS: Insulin Glargine 20 UNITS in Pre-Filled Syringe 1 EACH SC SCH (20:48)
[2019-11-13] MEDS: Piperacillin/Tazobactam 3.375 GM in Sodium Chloride 0.9% 100 ML IVPB SCH ×2 (00:02→05:19)
[2019-11-13] MEDS: Acetaminophen 325 MG TAB PO PRN ×4 (00:02→20:44)
[2019-11-13 05:35] LABS: INR-International Normal Ratio 2.1; Prothrombin Time 23.2 SEC (12.0-14.7)
--- NOTE | 2019-11-13 08:17 | PDOC.HOSPP ---
- Subjective Subjective: Chills. No foot pain. No other complaints. - Objective Vital Signs & Weight: Vital Signs (12 hours) Temp Pulse Resp BP Pulse Ox 11/13/19 07:27 99.1 F 78 16 166/74 H 94 L 11/13/19 04:43 97.5 F L 11/13/19 00:11 99.6 F Weight Admit Weight 225 lb Weight 225 lb I&O: 11/12/19 11/13/19 11/14/19 06:59 06:59 06:59 Intake Total 2100 Output Total 2300 750 Balance -200 -750 Result Diagrams: 11/10/19 07:30 11/10/19 07:31 Additional Labs: Accuchecks 11/13/19 11/12/19 11/12/19 05:21 20:33 16:16 POC Glucose 65 L 109 234 H 11/12/19 10:53 POC Glucose 230 H Hospitalist ROS - Medication Medications: Active Medications Generic Name Dose Route Start Last Admin Trade Name Freq PRN Reason Stop Dose Admin Acetaminophen 650 mg 11/10/19 05:45 11/13/19 00:02 Tylenol PO 650 mg Q4H PRN Administration Headache/Fever/Mild Pain (1-3) Hydrocodone Bitart/Acetaminophen 1 tab 11/10/19 05:45 11/12/19 20:48 [place] 5/325 PO 1 tab Q4H PRN Administration Severe Pain (7-10) Atorvastatin Calcium 20 mg 11/10/19 21:00 11/12/19 20:48 Lipitor PO 20 mg HS ANDREA Administration Flecainide Acetate 100 mg 11/10/19 09:00 11/12/19 21:05 Tambocor PO 100 mg BID ANDREA Administration Gabapentin 300 mg 11/10/19 09:00 11/12/19 20:48 Neurontin PO 300 mg BID ANDREA Administration Gabapentin 600 mg 11/10/19 21:00 11/12/19 20:48 Neurontin PO 600 mg QPM ANDREA Administration Insulin Glargine 20 units/ 0.2 mls @ 0 mls/hr 11/10/19 21:00 11/12/19 20:48 Miscellaneous Medication SC 0.2 mls HS ANDREA Administration Insulin Glargine 43 units/ 0.43 mls @ 0 mls/hr 11/10/19 09:00 11/12/19 08:43 Miscellaneous Medication SC 0.43 mls QAM ANDREA Administration Sodium Chloride 1,000 mls @ 90 mls/hr 11/10/19 13:00 11/12/19 20:47 Normal Saline 0.9% IV 1,000 mls .Q11H7M ANDREA Administration Piperacillin Sod/Tazobactam 100 mls @ 200 mls/hr 11/11/19 12:00 11/13/19 05: 19 Sod 3.375 gm/ Sodium Chloride IVPB 100 mls Q6HR ANDREA Administration Insulin Human Lispro 0 units 11/10/19 05:57 11/12/19 16:30 Humalog SC 4 unit .MODERATE SLIDING SC PRN Administration Moderate Correctional Scale Metoprolol Tartrate 12.5 mg 11/10/19 09:00 11/12/19 20:48 Lopressor PO 12.5 mg BID ANDREA Administration Ondansetron HCl 4 mg 11/10/19 05:45 11/10/19 18:06 Zofran Odt PO 4 mg Q6H PRN Administration Nausea/Vomiting Ondansetron HCl 4 mg 11/10/19 05:45 11/12/19 00:39 Zofran IVP 4 mg Q6H PRN Administration Nausea/Vomiting Warfarin Sodium 5 mg 11/11/19 17:00 11/12/19 16:32 Coumadin PO 5 mg 1700 ANDREA Administration - Exam General Appearance: NAD, awake alert Heart: no murmur, no gallops, no rubs, normal peripheral pulses, irregular Respiratory: CTAB, no wheezes, no rales, no ronchi, normal chest expansion, no tachypnea, normal percussion Gastrointestinal: soft, non-tender, non-distended, normal bowel sounds, no palpable masses, no hepatomegaly, no splenomegaly, no bruit Skin: normal turgor Skin - other findings: Right foot wound with modest drainage. No erythema. Psychiatric: normal affect, normal behavior, A&O x 3 Hosp A/P (1) UTI (urinary tract infection) Status: Resolved (2) Colon cancer Code(s): C18.9 - MALIGNANT NEOPLASM OF COLON, UNSPECIFIED Status: Acute (3) Anemia of chronic disease Code(s): D63.8 - ANEMIA IN OTHER CHRONIC DISEASES CLASSIFIED ELSEWHERE Status : Chronic (4) Atrial fibrillation Code(s): I48.91 - UNSPECIFIED ATRIAL FIBRILLATION Status: Chronic Qualifiers: (5) CKD (chronic kidney disease) stage 3, GFR 30-59 ml/min Code(s): N18.3 - CHRONIC KIDNEY DISEASE, STAGE 3 (MODERATE) Status: Chronic (6) Diabetes mellitus type 2, insulin dependent Code(s): E11.9 - TYPE 2 DIABETES MELLITUS WITHOUT COMPLICATIONS; Z79.4 - GROUP HOME (CURRENT) USE OF INSULIN Status: Chronic (7) Hypertension Code(s): I10 - ESSENTIAL (PRIMARY) HYPERTENSION Status: Chronic Qualifiers: (8) ESE (obstructive sleep apnea) Code(s): G47.33 - OBSTRUCTIVE SLEEP APNEA (ADULT) (PEDIATRIC) Status: Chronic (9) Obesity (BMI 30-39.9) Code(s): E66.9 - OBESITY, UNSPECIFIED Status: Chronic (10) Hx of osteomyelitis Code(s): Z87.39 - PERSONAL HISTORY OF DISEASES OF THE MS SYS AND CONN TISS Status: Acute Plan: Right fourth, fifth distal metatarsal ray amputation 09/20. - Plan suspect UTI as primary source of infection. He has bladder dysfunction from the prior surgery for colon cancer. Self-caths. Cx with pseudomonas. Continue IV until DC. Hope to use Cefdinir as it is sensitive to third gen cef's. Quinolones interact with flecainide. Working around coumadin as well. Discussed with Dr. Box. He is not confident in the Cefdinir. Now having fever for the first time since admission. Blood culture. Right foot drainage culture. Dr. Box to see him today. Stable afib. Continue flecainide and warfarin. Continue amlodipine for BP control. Treatment for his colon cancer has been on hold due to the osteo, surgery. Has a scan scheduled for Tuesday per Melissa.
[2019-11-13] MEDS: Gabapentin 300 MG CAP PO SCH ×3 (10:27→19:34)
[2019-11-13] MEDS: Amlodipine 5 MG TAB PO SCH (10:28)
[2019-11-13] MEDS: Metoprolol Tartrate 25 MG TAB PO SCH ×2 (10:28→19:33)
[2019-11-13] MEDS: Sodium Chloride 0.9% 1,000 ML IV SCH ×2 (10:41→20:49)
[2019-11-13] MEDS: Insulin Glargine 43 UNITS in Pre-Filled Syringe 1 EACH SC SCH (10:45)
[2019-11-13] MEDS: Flecainide 50 MG TAB PO SCH ×2 (10:57→20:44)
[2019-11-13] MEDS: Ondansetron ODT 4 MG TAB PO PRN ×2 (11:00→18:01)
--- NOTE | 2019-11-13 13:16 | CT ---
CT Stone Protocol: 11/13/2019 11:59 AM HISTORY: Neurogenic bladder with urinary tract infection COMPARISON: None. TECHNIQUE: Multiple contiguous axial images were obtained and a CT of the abdomen and pelvis without IV contrast . Coronal and sagittal reformats were performed. FINDINGS: This examination is limited for the evaluation of solid organs and vascular structures due to the lac k of intravenous contrast. Lower Chest: Small bilateral pleural effusions with adjacent atelectasis. Abdomen: Liver: Hypodensities in the liver measuring up to 2.2 cm in size do not meet criteria for simple cyst s. Bile Ducts: Normal caliber. Gallbladder: Removed Pancreas: within normal limits. Spleen: within normal limits. Adrenals: within normal limits. Kidneys: 3.0 cm left renal cyst. Pelvis: Reproductive Organs: No pelvic masses. Ureters: within normal limits. Bladder: Decompressed by a Muhammad catheter. Bowel: Normal caliber. Mesenteric Lymph Nodes: No enlarged mesenteric lymph nodes. Peritoneum: No ascites or free air, no fluid collection. Vessels: Atherosclerotic calcifications in the aorta Retroperitoneum: within normal limits. Abdominal Wall: within normal limits. Bones: Degenerative changes in the spine. IMPRESSION: 1. Hypodensities in the liver do not meet criteria for simple cysts. A CT of the abdomen with contras t is recommended for further evaluation. 2. Small bilateral pleural effusions with adjacent atelectasis 3. Left renal cyst
[2019-11-13 14:32] LABS: Bacteria/HPF None Seen HPF (None Seen); Bilirubin Negative (Negative); Blood, Urine 1+ (Negative); Clarity Turbid (Clear); Glucose, Urine (Dipstick) Normal (Negative); Leukocyte 500 Leu/uL (Negative); Nitrite Negative (Negative); Protein, Urine (Dipstick) 50 mg/dL (Neg-Trace); Squamous Epithelial 0-3 HPF (0-3); Urobilinogen Normal mg/dL (Less than 2); WBC/HPF Greater than 50 HPF (0-3)
[2019-11-13 14:45] LABS: Yeast-Budding 2+ HPF (None Seen)
--- NOTE | 2019-11-13 16:30 | CON ---
DATE OF CONSULTATION: 11/13/2019 REASON FOR CONSULTATION: The patient comes in with abnormal urinalysis and possible invasive UTI. HISTORY OF PRESENT ILLNESS: A 69-year-old gentleman, who was known to me from prior visit in August of last year when he presented with a history of type 2 diabetes, neuropathy, right foot ulcer, and a history of colon cancer, on chemotherapy under Dr. Huff' supervision. Previous partial amputation of 5th metatarsal digit with negative pressure dressing and antimicrobial therapy IV. He did have positive blood cultures for Staphylococcus aureus at that time. He completed his treatment in [place] and then discharged home and unfortunately, he developed deterioration of the wound with recrudescence of inflammatory changes. He was readmitted. He did have this time ray amputation at the remnants of 4th and 5th rays. Microbiology was this time with Staphylococcus aureus and had an Enterococcus faecalis in one of the samples. So, basically it was the same Staphylococcus aureus which may have persisted in the area, maybe due to immunosuppression associated with chemotherapy and his cancer. He was re-treated with Rocephin for 6 weeks and then conversion to oral antimicrobial therapy and the end date was estimated on November 01. His C-reactive protein went down to less than 0.5 and then 0.7. The patient also has a history of urinary retention, possibly due to neuropathy with some element of prostatic hypertrophy contributing to it, which he manages with in and out catheterization, and he presented with fever and noticeable changes in the urinary output color and odor, associated with suprapubic tenderness. Initial findings included BP 120/70, pulse 83, respirations 20, temperature 98.3, O2 saturation 99. He did not appear in distress. Lungs and heart examination was normal. Initial findings also included sodium 133, creatinine 1.45, which is about his baseline. White cell count was 14.2, hemoglobin 9.2, platelets 193 with 78% neutrophils. Urinalysis from admission with greater than 50 wbc's. The wound in the lateral aspect of the foot had almost completely closed. There is some sort of yellow scab at the base of that site. No inflammatory changes noted around the wound. The patient was given Zosyn, and because of flecainide treatment for his cardiac arrhythmia, he could not benefit from use of oral quinolones and so there is a question of likely invasive UTI. At this point, he feels better. He still had some chills. No headaches. No visual symptoms, sore throat, odynophagia, or dysphagia. No cough or chest pain. No abdominal pain. PAST MEDICAL HISTORY: Stage IV colon cancer with liver and lung mets, on chemotherapy after resection; atrial fib with ablation, on flecainide; type 2 diabetes; likely neurogenic bladder with urinary retention and requirement for in and out catheterization; hypertension; obesity; sleep apnea; complications of neuropathy in the right foot with distal forefoot osteomyelitis, which required 4th and 5th ray resection and recrudescence of the infection after protracted treatment, which led to repeat course of Rocephin. SOCIAL HISTORY: Never smoker. ALLERGIES: NONE. MEDICATIONS: At the moment include; 1. Zosyn. 2. Warfarin. 3. Ondansetron. 4. Metoprolol. 5. Insulin. 6. Glucagon. 7. Gabapentin. 8. Flecainide. 9. Lipitor. 10. Norvasc. 11. Hydrocodone. FAMILY HISTORY: Noncontributory. PHYSICAL EXAMINATION: VITAL SIGNS: T-max recently 100.2, blood pressure 160/74, pulse 78, respirations 16, O2 saturation 94. SKIN: Shows the area of lateral foot amputation site with no erythema, no swelling, and dried light yellow scab along the base of the wound. The patient has an access port in the right subclavian location and there is no lymphadenopathy. HEENT: Ocular movements are conjugate. Oral cavity is not remarkable. NECK: Supple. LUNGS: Symmetric, clear breath sounds. HEART: S1 and S2, regular rate. No S3 or S4. ABDOMEN: Soft. Not distended or tender. Maybe little bit of suprapubic tenderness. He has an indwelling Muhammad catheter. I's and O's are positive and negative. EXTREMITIES: Pulses are 1+ in dorsalis pedis. NEUROLOGIC: Nonfocal including cognitive functions. He is a little bit depressed from lengthy hospitalizations. LABORATORY DATA: The labs have been reviewed above. Microbiology with a Pseudomonas aeruginosa from urine culture, intermediate to Zosyn and susceptible to other medications. ASSESSMENT: 1. Colon cancer, metastatic, on chemotherapy through a port. 2. Right foot infection associated with neuropathy and diabetes with 4th and 5th ray amputations, recrudescence, repeat treatment and surgical debridement, now apparent resolution of the process. 3. Neurogenic bladder with likely invasive urinary tract infection, possible pyelonephritis with a quite susceptible Pseudomonas aeruginosa. However, it is intermediate to Zosyn and the patient cannot take quinolones due to drug interaction concern. DISCUSSION: At this moment, we would advise treating him with cefepime and discharge planning on cefepime for 7 to 10 days as long as the imaging study does not show any other complications such as hydronephrosis, stones. We will order a CT stone protocol with that purpose in mind. Future recurrences could be prevented with low dose antimicrobial tx with nitrofurantoin or bactrim according to some prospective studies. Job ID: [id number] MTDD
[2019-11-13] MEDS: Warfarin Sodium 5 MG TAB PO SCH (17:57)
[2019-11-13] MEDS: Cefepime 2 GM in Sodium Chloride 0.9% 100 ML IVPB SCH (19:31)
[2019-11-13] MEDS: Atorvastatin Calcium 20 MG TAB PO SCH (19:34)
[2019-11-13] MEDS: Insulin Glargine 20 UNITS in Pre-Filled Syringe 1 EACH SC SCH (20:44)
[2019-11-14] MEDS ORDERED: Senokot 8.6 MG TAB PO PRN (00:22)
[2019-11-14] MEDS: Acetaminophen 325 MG TAB PO PRN ×2 (04:38→23:06)
[2019-11-14 04:54] LABS: INR-International Normal Ratio 2.1; Prothrombin Time 23.5 SEC (12.0-14.7)
[2019-11-14 07:53] LABS: #Basophils 0.1 thou/uL (0.0-0.2); #Eosinphils 0.1 thou/uL (0.0-0.7); #Lymphocytes 0.6 thou/uL (1.20-3.40); #Monocytes 1.5 thou/uL (0.11-0.59); #Neutrophils 11.7 thou/uL (1.40-6.50); %Basophils 0.4 % (0.0-1.0); %Eosinophils 0.5 % (0.0-10.0); %Lymphocytes 4.5 % (21.0-51.0); %Monocytes 10.6 % (0.0-10.0); %Neutrophils 84.1 % (42.0-75.0); Hemoglobin 8.1 g/dL (14.0-18.0); Mean Corpuscular HGB CONC 32.6 g/dL (32.0-36.0); Mean Corpuscular Hemoglobin 29.6 pg (27.0-31.0); Mean Corpuscular Volume 90.7 fL (78.0-98.0); Mean Platelet Volume 7.6 fL (7.4-10.4); Platelet Count 205 thou/uL (130-400); RBC Distribution Width 13.2 % (11.5-14.5); Red Blood Cell (RBC) Count 2.74 mill/uL (4.70-6.10); White Blood Cell (WBC) Count 13.9 thou/uL (4.8-10.8)
[2019-11-14 08:13] LABS: ALT (SGPT) 33 U/L (8-55); AST (SGOT) 30 U/L (5-34); Albumin 2.8 g/dL (3.4-4.8); Alkaline Phosphatase 103 U/L (40-110); Anion Gap 12 mmol/L (10-20); BUN (Urea Nitrogen) 15 mg/dL (8.4-25.7); Bilirubin, Total 0.6 mg/dL (0.2-1.2); Calc. Creatinine Clearance 81 mL/min (70-130); Calcium 7.8 mg/dL (7.8-10.44); Carbon Dioxide 18 mmol/L (23-31); Chloride 106 mmol/L (98-107); Estimated GFR-MDRD 59; Globulin 3.4 g/dL (2.4-3.5); Glucose 113 mg/dL (83-110); Potassium 3.7 mmol/L (3.5-5.1); Protein, Total 6.2 g/dL (5.8-8.1); Sodium 132 mmol/L (136-145)
[2019-11-14] MEDS: Amlodipine 5 MG TAB PO SCH (09:17)
[2019-11-14] MEDS: Cefepime 2 GM in Sodium Chloride 0.9% 100 ML IVPB SCH ×2 (09:17→20:20)
[2019-11-14] MEDS: Gabapentin 300 MG CAP PO SCH ×3 (09:17→20:20)
[2019-11-14] MEDS: Insulin Glargine 43 UNITS in Pre-Filled Syringe 1 EACH SC SCH (09:18)
[2019-11-14] MEDS: Flecainide 50 MG TAB PO SCH ×2 (09:25→20:20)
[2019-11-14] MEDS: Metoprolol Tartrate 25 MG TAB PO SCH ×2 (09:25→20:21)
[2019-11-14] MEDS ORDERED: Polyethylene Glycol 3350 17 GM Packet PO PRN (10:30)
[2019-11-14] MEDS: Ondansetron PF 4 MG/2 ML Vial IVP PRN (11:23)
[2019-11-14] MEDS: Sodium Chloride 0.9% 1,000 ML IV SCH ×2 (11:32→23:06)
[2019-11-14] MEDS: HumaLOG 300 UNITS/3 ML VIAL SC PRN (16:29)
[2019-11-14] MEDS: Warfarin Sodium 5 MG TAB PO SCH (16:29)
[2019-11-14] MEDS: HYDROcodone/Acetaminophen 5/325 mg Tablet PO PRN ×2 (16:30→20:21)
[2019-11-14] MEDS: Ondansetron ODT 4 MG TAB PO PRN (16:34)
[2019-11-14] MEDS: Atorvastatin Calcium 20 MG TAB PO SCH (20:20)
[2019-11-14] MEDS: Insulin Glargine 20 UNITS in Pre-Filled Syringe 1 EACH SC SCH (20:21)
[2019-11-14] MEDS: Senokot S 8.6-50 MG TAB PO SCH (21:02)
--- NOTE | 2019-11-14 22:33 | PDOC.HOSPP ---
- Subjective Subjective: Still feels generally poorly. Still has some fever. - Objective Vital Signs & Weight: Vital Signs (12 hours) Temp Pulse Resp BP Pulse Ox 11/14/19 19:40 99.0 F 77 16 152/71 H 92 L Weight Admit Weight 225 lb Weight 225 lb I&O: 11/13/19 11/14/19 11/15/19 06:59 06:59 06:59 Intake Total 1180 Output Total 750 6452 1250 Balance -750 -3750 -70 Result Diagrams: 11/14/19 07:18 11/14/19 07:18 Additional Labs: Accuchecks 11/14/19 11/14/19 11/14/19 19:48 16:23 11:17 POC Glucose 196 H 203 H 104 11/14/19 04:40 POC Glucose 127 H Hospitalist ROS - Medication Medications: Active Medications Generic Name Dose Route Start Last Admin Trade Name Freq PRN Reason Stop Dose Admin Acetaminophen 650 mg 11/10/19 05:45 11/14/19 04:38 Tylenol PO 650 mg Q4H PRN Administration Headache/Fever/Mild Pain (1-3) Hydrocodone Bitart/Acetaminophen 1 tab 11/10/19 05:45 11/14/19 20:21 [place] 5/325 PO 1 tab Q4H PRN Administration Severe Pain (7-10) Amlodipine Besylate 2.5 mg 11/13/19 09:00 11/14/19 09:17 Norvasc PO 2.5 mg DAILY ANDREA Administration Atorvastatin Calcium 20 mg 11/10/19 21:00 11/14/19 20:20 Lipitor PO 20 mg HS ANDREA Administration Flecainide Acetate 100 mg 11/10/19 09:00 11/14/19 20:20 Tambocor PO 100 mg BID ANDREA Administration Gabapentin 300 mg 11/10/19 09:00 11/14/19 20:20 Neurontin PO 300 mg BID ANDREA Administration Gabapentin 600 mg 11/10/19 21:00 11/14/19 20:20 Neurontin PO 600 mg QPM ANDREA Administration Insulin Glargine 20 units/ 0.2 mls @ 0 mls/hr 11/10/19 21:00 11/14/19 20:21 Miscellaneous Medication SC 0.2 mls HS ANDREA Administration Insulin Glargine 43 units/ 0.43 mls @ 0 mls/hr 11/10/19 09:00 11/14/19 09:18 Miscellaneous Medication SC 0.43 mls QAM ANDREA Administration Sodium Chloride 1,000 mls @ 90 mls/hr 11/10/19 13:00 11/14/19 11:32 Normal Saline 0.9% IV 1,000 mls .Q11H7M ANDREA Administration Cefepime HCl 2 gm/ Sodium 100 mls @ 200 mls/hr 11/13/19 21:00 11/14/19 20:20 Chloride IVPB 100 mls Q12HR ANDREA Administration Insulin Human Lispro 0 units 11/10/19 05:57 11/14/19 16:29 Humalog SC 4 unit .MODERATE SLIDING SC PRN Administration Moderate Correctional Scale Metoprolol Tartrate 12.5 mg 11/10/19 09:00 11/14/19 20:21 Lopressor PO 12.5 mg BID ANDREA Administration Ondansetron HCl 4 mg 11/10/19 05:45 11/14/19 16:34 Zofran Odt PO 4 mg Q6H PRN Administration Nausea/Vomiting Ondansetron HCl 4 mg 11/10/19 05:45 11/14/19 11:23 Zofran IVP 4 mg Q6H PRN Administration Nausea/Vomiting Polyethylene Glycol 17 gm 11/14/19 10:30 11/14/19 11:23 Miralax PO 17 gm DAILYPRN PRN Administration Constipation Senna 1 tab 11/14/19 00:22 11/14/19 00:37 Senokot PO 1 tab HSPRN PRN Administration Constipation Senna/Docusate Sodium 1 tab 11/14/19 21:00 11/14/19 21:02 Senokot S PO Not Given BID ANDREA Warfarin Sodium 5 mg 11/11/19 17:00 11/14/19 16:29 Coumadin PO 5 mg 1700 ANDREA Administration - Exam General Appearance: NAD, awake alert Heart: RRR, no murmur, no gallops, no rubs, normal peripheral pulses Respiratory: CTAB, no wheezes, no rales, no ronchi, normal chest expansion, no tachypnea, normal percussion Gastrointestinal: soft, non-tender, non-distended, normal bowel sounds, no palpable masses, no hepatomegaly, no splenomegaly, no bruit Musculoskeletal: normal tone Psychiatric: normal affect Hosp A/P (1) UTI (urinary tract infection) Status: Resolved (2) Colon cancer Code(s): C18.9 - MALIGNANT NEOPLASM OF COLON, UNSPECIFIED Status: Acute (3) Anemia of chronic disease Code(s): D63.8 - ANEMIA IN OTHER CHRONIC DISEASES CLASSIFIED ELSEWHERE Status : Chronic (4) Atrial fibrillation Code(s): I48.91 - UNSPECIFIED ATRIAL FIBRILLATION Status: Chronic Qualifiers: (5) CKD (chronic kidney disease) stage 3, GFR 30-59 ml/min Code(s): N18.3 - CHRONIC KIDNEY DISEASE, STAGE 3 (MODERATE) Status: Chronic (6) Diabetes mellitus type 2, insulin dependent Code(s): E11.9 - TYPE 2 DIABETES MELLITUS WITHOUT COMPLICATIONS; Z79.4 - ARTIFICIAL BREEDING DISTRIBUTOR (CURRENT) USE OF INSULIN Status: Chronic (7) Hypertension Code(s): I10 - ESSENTIAL (PRIMARY) HYPERTENSION Status: Chronic Qualifiers: (8) ESE (obstructive sleep apnea) Code(s): G47.33 - OBSTRUCTIVE SLEEP APNEA (ADULT) (PEDIATRIC) Status: Chronic (9) Obesity (BMI 30-39.9) Code(s): E66.9 - OBESITY, UNSPECIFIED Status: Chronic (10) Hx of osteomyelitis Code(s): Z87.39 - PERSONAL HISTORY OF DISEASES OF THE MS SYS AND CONN TISS Status: Acute - Plan suspect UTI as primary source of infection. He has bladder dysfunction from the prior surgery for colon cancer. Self-caths. Cx with pseudomonas. Continue IV until DC. Hope to use Cefdinir as it is sensitive to third gen cef's. Quinolones interact with flecainide. On cefepime. Stable afib. Continue flecainide and warfarin. Continue amlodipine for BP control. Treatment for his colon cancer has been on hold due to the osteo, surgery. Has a scan scheduled for Tuesday per .
[2019-11-15 04:08] LABS: #Eosinphils 0.4 thou/uL (0.0-0.7); #Lymphocytes 0.9 thou/uL (1.20-3.40); #Monocytes 1.2 thou/uL (0.11-0.59); #Neutrophils 8.1 thou/uL (1.40-6.50); %Basophils 0.4 % (0.0-1.0); %Eosinophils 3.9 % (0.0-10.0); %Lymphocytes 8.3 % (21.0-51.0); %Monocytes 11.5 % (0.0-10.0); %Neutrophils 75.9 % (42.0-75.0); Hemoglobin 7.6 g/dL (14.0-18.0); Mean Corpuscular HGB CONC 33.1 g/dL (32.0-36.0); Mean Corpuscular Hemoglobin 29.6 pg (27.0-31.0); Mean Corpuscular Volume 89.3 fL (78.0-98.0); Platelet Count 190 thou/uL (130-400); RBC Distribution Width 13.1 % (11.5-14.5); Red Blood Cell (RBC) Count 2.55 mill/uL (4.70-6.10); White Blood Cell (WBC) Count 10.7 thou/uL (4.8-10.8)
[2019-11-15 04:13] LABS: INR-International Normal Ratio 2.4; Prothrombin Time 25.7 SEC (12.0-14.7)
[2019-11-15 05:51] LABS: Reticulocyte Count 0.9 % (0.5-1.5)
[2019-11-15] MEDS: Senokot S 8.6-50 MG TAB PO SCH ×2 (10:04→21:02)
[2019-11-15] MEDS: Metoprolol Tartrate 25 MG TAB PO SCH ×2 (10:09→20:49)
[2019-11-15] MEDS: Flecainide 50 MG TAB PO SCH ×2 (10:09→20:51)
[2019-11-15] MEDS: Amlodipine 5 MG TAB PO SCH (10:09)
[2019-11-15] MEDS: Gabapentin 300 MG CAP PO SCH ×3 (10:09→20:50)
[2019-11-15] MEDS: Insulin Glargine 43 UNITS in Pre-Filled Syringe 1 EACH SC SCH (10:10)
[2019-11-15] MEDS: Cefepime 2 GM in Sodium Chloride 0.9% 100 ML IVPB SCH (10:10)
[2019-11-15] MEDS: HYDROcodone/Acetaminophen 5/325 mg Tablet PO PRN (10:12)
[2019-11-15] MEDS: Ondansetron ODT 4 MG TAB PO PRN (10:12)
[2019-11-15] MEDS: Sodium Chloride 0.9% 1,000 ML IV SCH ×2 (13:02→21:02)
[2019-11-15] MEDS: HumaLOG 300 UNITS/3 ML VIAL SC PRN (13:05)
[2019-11-15] MEDS: Ondansetron PF 4 MG/2 ML Vial IVP PRN (13:21)
[2019-11-15] MEDS: MEROPENEM 1 GM/50 ML 1 GM in Premix Bag 1 BAG IVPB SCH (13:25)
[2019-11-15] MEDS: Warfarin Sodium 5 MG TAB PO SCH (16:35)
--- NOTE | 2019-11-15 17:35 | PRG ---
DATE OF SERVICE: 11/15/2019 SUBJECTIVE: Mr. King is still feeling unwell mostly because of nausea. He cannot sleep well at night either. Not much pain. No respiratory symptoms or abdominal pain. No diarrhea. OBJECTIVE: VITAL SIGNS: T-max 100 to 101.8 yesterday, BP stable. GENERAL: Awake, alert. Does not appear in acute distress. HEART: S1 and S2. Regular rate. ABDOMEN: Soft, nondistended. LUNGS: Clear. LABORATORY DATA: His white cell count is down to 10.7, hemoglobin 7.6, platelets 190. Creatinine is 1.2. Microbiology with P aeruginosa, this one is resistant to cefepime, meropenem susceptible. He cannot take quinolones due to interaction with Flecainide. ASSESSMENT AND DISCUSSION: 1. Colon cancer, metastatic, on chemo through a port. 2. Right foot infection with neuropathy. 4th and 5th ray amputations with recrudescence. 3. Neurogenic bladder with likely invasive urinary tract infection, likely pyelonephritis, susceptible with P aeruginosa, resistant to cefepime and Zosyn. The patient cannot take quinolones due to interaction with flecainide. We will switch him to meropenem and treat for a total of 14 days since all the previous treatment will not be able to be counted due to the resistance profile. Job ID: [id number] [facility]
--- NOTE | 2019-11-15 17:39 | RAD ---
Exam: Chest one view HISTORY:Hypoxia Comparison: 07/11/2019 FINDINGS: Cardiac silhouette:Upper normal cardiac silhouette. Aorta: Atherosclerosis of the aorta Pulmonary vessels: Normal Costophrenic angles: Clear LUNGS: No masses or consolidation Mediport catheter: Stable right-sided Mediport catheter. Pneumothorax: None Osseous abnormalities: None IMPRESSION: 1. No acute cardiopulmonary process 2. Atherosclerosis of the aorta
--- NOTE | 2019-11-15 20:44 | PDOC.HOSPP ---
- Subjective Subjective: Has felt bad today. Feels like he needs some oxygen with the CPAP. Has not been very tolerant of the dietary restrictions. Has also had some nausea today. Not getting out of bed much. Sitting on the side of the bed. Behind on BM's. Says the Senna does not help much, but hesitant to take the miralax for fear of diarrhea given his difficult getting up to the BR. - Objective Vital Signs & Weight: Vital Signs (12 hours) Temp Pulse Resp BP Pulse Ox 11/15/19 19:11 98.4 F 82 16 155/71 H 92 L 11/15/19 10:09 85 Weight Admit Weight 225 lb Weight 225 lb I&O: 11/14/19 11/15/19 11/16/19 06:59 06:59 06:59 Intake Total 2420 2080 Output Total 3750 2050 1800 Balance -3750 370 280 Result Diagrams: 11/15/19 03:59 11/14/19 07:18 Additional Labs: Accuchecks 11/15/19 11/15/19 11/15/19 19:19 16:26 11:12 POC Glucose 182 H 127 H 168 H 11/15/19 04:01 POC Glucose 95 Hospitalist ROS - Medication Medications: Active Medications Generic Name Dose Route Start Last Admin Trade Name Freq PRN Reason Stop Dose Admin Acetaminophen 650 mg 11/10/19 05:45 11/14/19 23:06 Tylenol PO 650 mg Q4H PRN Administration Headache/Fever/Mild Pain (1-3) Hydrocodone Bitart/Acetaminophen 1 tab 11/10/19 05:45 11/15/19 10:12 [place] 5/325 PO 1 tab Q4H PRN Administration Severe Pain (7-10) Amlodipine Besylate 2.5 mg 11/13/19 09:00 11/15/19 10:09 Norvasc PO 2.5 mg DAILY ANDREA Administration Atorvastatin Calcium 20 mg 11/10/19 21:00 11/14/19 20:20 Lipitor PO 20 mg HS ANDREA Administration Flecainide Acetate 100 mg 11/10/19 09:00 11/15/19 10:09 Tambocor PO 100 mg BID ANDREA Administration Gabapentin 300 mg 11/10/19 09:00 11/15/19 10:09 Neurontin PO 300 mg BID ANDREA Administration Gabapentin 600 mg 11/10/19 21:00 11/14/19 20:20 Neurontin PO 600 mg QPM ANDREA Administration Insulin Glargine 20 units/ 0.2 mls @ 0 mls/hr 11/10/19 21:00 11/14/19 20:21 Miscellaneous Medication SC 0.2 mls HS ANDREA Administration Insulin Glargine 43 units/ 0.43 mls @ 0 mls/hr 11/10/19 09:00 11/15/19 10:10 Miscellaneous Medication SC 0.43 mls QAM ANDREA Administration Sodium Chloride 1,000 mls @ 90 mls/hr 11/10/19 13:00 11/15/19 13:02 Normal Saline 0.9% IV 1,000 mls .Q11H7M ANDREA Administration Meropenem 1 gm/ Device 50 mls @ 100 mls/hr 11/15/19 14:00 11/15/19 13:25 IVPB 50 mls Q8HR ANDREA Administration Insulin Human Lispro 0 units 11/10/19 05:57 11/15/19 13:05 Humalog SC 2 unit .MODERATE SLIDING SC PRN Administration Moderate Correctional Scale Metoprolol Tartrate 12.5 mg 11/10/19 09:00 11/15/19 10:09 Lopressor PO 12.5 mg BID ANDREA Administration Ondansetron HCl 4 mg 11/10/19 05:45 11/15/19 10:12 Zofran Odt PO 4 mg Q6H PRN Administration Nausea/Vomiting Ondansetron HCl 4 mg 11/10/19 05:45 11/15/19 13:21 Zofran IVP 4 mg Q6H PRN Administration Nausea/Vomiting Polyethylene Glycol 17 gm 11/14/19 10:30 11/14/19 11:23 Miralax PO 17 gm DAILYPRN PRN Administration Constipation Senna 1 tab 11/14/19 00:22 11/14/19 00:37 Senokot PO 1 tab HSPRN PRN Administration Constipation Senna/Docusate Sodium 1 tab 11/14/19 21:00 11/15/19 10:04 Senokot S PO 1 tab BID ANDREA Administration Warfarin Sodium 5 mg 11/11/19 17:00 11/15/19 16:35 Coumadin PO 5 mg 1700 ANDREA Administration - Exam General Appearance: NAD, awake alert Heart: RRR, no murmur, no gallops, no rubs, normal peripheral pulses Respiratory: CTAB, no wheezes, no rales, no ronchi, normal chest expansion, no tachypnea, normal percussion Respiratory - other findings: Slightly diminised at right base. Gastrointestinal: soft, non-tender, non-distended, normal bowel sounds, no palpable masses, no hepatomegaly, no splenomegaly, no bruit Skin: normal turgor Musculoskeletal: normal tone Psychiatric - other findings: a little flat affect. Hosp A/P (1) Pseudomonas urinary tract infection Code(s): N39.0 - URINARY TRACT INFECTION, SITE NOT SPECIFIED; B96.5 - PSEUDOMONAS (MALLEI) CAUSING DISEASES CLASSD ELSWHR Status: Acute (2) Colon cancer Code(s): C18.9 - MALIGNANT NEOPLASM OF COLON, UNSPECIFIED Status: Acute (3) Anemia of chronic disease Code(s): D63.8 - ANEMIA IN OTHER CHRONIC DISEASES CLASSIFIED ELSEWHERE Status : Chronic (4) Atrial fibrillation Code(s): I48.91 - UNSPECIFIED ATRIAL FIBRILLATION Status: Chronic Qualifiers: (5) CKD (chronic kidney disease) stage 3, GFR 30-59 ml/min Code(s): N18.3 - CHRONIC KIDNEY DISEASE, STAGE 3 (MODERATE) Status: Chronic (6) Diabetes mellitus type 2, insulin dependent Code(s): E11.9 - TYPE 2 DIABETES MELLITUS WITHOUT COMPLICATIONS; Z79.4 - SALES AND [employer]AIL MANAGEMENT RECRUITER (CURRENT) USE OF INSULIN Status: Chronic (7) Hypertension Code(s): I10 - ESSENTIAL (PRIMARY) HYPERTENSION Status: Chronic Qualifiers: (8) ESE (obstructive sleep apnea) Code(s): G47.33 - OBSTRUCTIVE SLEEP APNEA (ADULT) (PEDIATRIC) Status: Chronic (9) Obesity (BMI 30-39.9) Code(s): E66.9 - OBESITY, UNSPECIFIED Status: Chronic (10) Hx of osteomyelitis Code(s): Z87.39 - PERSONAL HISTORY OF DISEASES OF THE MS SYS AND CONN TISS Status: Acute (11) Constipation Code(s): K59.00 - CONSTIPATION, UNSPECIFIED Status: Acute - Plan suspect UTI as primary source of infection. He has bladder dysfunction from the prior surgery for colon cancer. Self-caths. Cx with pseudomonas. Continue IV until DC. Now has Pseudomonas growing from the foot culture. This may be superficial growth, but has a different sensitivity pattern than the urine cultured pseudomonas. Dr. Box changed to Meropenem. Should cover both. Stable afib. Continue flecainide and warfarin. Continue amlodipine for BP control. Treatment for his colon cancer has been on hold due to the osteo, surgery. Has a scan scheduled for Tuesday per Melissa. Worsening anemia. Follow closely. Trending downward. Has had anemia to this degree in the past. Retic count is high, but should probably be a little higher still. Given his symptoms, consider transfusion if any lower. Ask RT to work with his CPAP or ours to improve oxygenation/SOB. [employer] to help with diet. PT. CXR Incentive spirometer.
[2019-11-15] MEDS: Insulin Glargine 20 UNITS in Pre-Filled Syringe 1 EACH SC SCH (20:49)
[2019-11-15] MEDS: Atorvastatin Calcium 20 MG TAB PO SCH (20:51)
[2019-11-15] MEDS ORDERED: Milk Of Magnesia 30 ML UDCUP PO PRN (20:55)
[2019-11-16] MEDS: MEROPENEM 1 GM/50 ML 1 GM in Premix Bag 1 BAG IVPB SCH ×4 (00:09→21:11)
[2019-11-16] MEDS: Sodium Chloride 0.9% 1,000 ML IV SCH ×2 (00:17→13:56)
[2019-11-16 04:17] LABS: #Basophils 0.1 thou/uL (0.0-0.2); #Eosinphils 0.5 thou/uL (0.0-0.7); #Lymphocytes 0.6 thou/uL (1.20-3.40); #Neutrophils 8.2 thou/uL (1.40-6.50); %Basophils 0.6 % (0.0-1.0); %Eosinophils 4.5 % (0.0-10.0); %Lymphocytes 5.5 % (21.0-51.0); %Monocytes 9.5 % (0.0-10.0); %Neutrophils 79.8 % (42.0-75.0); Hemoglobin 7.8 g/dL (14.0-18.0); Mean Corpuscular HGB CONC 32.6 g/dL (32.0-36.0); Mean Corpuscular Hemoglobin 28.8 pg (27.0-31.0); Mean Corpuscular Volume 88.4 fL (78.0-98.0); Mean Platelet Volume 7.3 fL (7.4-10.4); Platelet Count 235 thou/uL (130-400); RBC Distribution Width 13.2 % (11.5-14.5); Red Blood Cell (RBC) Count 2.72 mill/uL (4.70-6.10); White Blood Cell (WBC) Count 10.3 thou/uL (4.8-10.8)
[2019-11-16 04:24] LABS: INR-International Normal Ratio 2.3; Prothrombin Time 25.1 SEC (12.0-14.7)
[2019-11-16] MEDS: Insulin Glargine 43 UNITS in Pre-Filled Syringe 1 EACH SC SCH (09:29)
[2019-11-16] MEDS: Metoprolol Tartrate 25 MG TAB PO SCH ×2 (09:30→21:09)
[2019-11-16] MEDS: Gabapentin 300 MG CAP PO SCH ×3 (09:32→21:09)
[2019-11-16] MEDS: Amlodipine 5 MG TAB PO SCH (09:32)
[2019-11-16] MEDS: Senokot S 8.6-50 MG TAB PO SCH ×2 (09:32→21:11)
[2019-11-16] MEDS: Flecainide 50 MG TAB PO SCH ×2 (10:56→21:09)
--- NOTE | 2019-11-16 11:53 | PRG ---
DATE OF SERVICE: 11/16/2019 SUBJECTIVE: Feeling better today, ate breakfast. No respiratory symptoms. No abdominal pain. Still has a Muhammad catheter in place. LABORATORY DATA: White cell count 10.3, hemoglobin 7.8, platelets 235 with 79% neutrophils. Creatinine last checked two days ago was 1.21. Microbiology as noted with P. aeruginosa in the foot, which is probably just a colonizer of the surface and the invasive UTI. The patient had a chest x-ray without any major findings. 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 aeruginosa strain now responding clinically to the switch to meropenem, to be continued for another 13 days. The patient will continue to have this problem and may consider in and out catheterization instead of an indwelling Muhammad catheter or a suprapubic catheter. Job ID: [id number]
[2019-11-16] MEDS: HumaLOG 300 UNITS/3 ML VIAL SC PRN ×2 (12:00→16:43)
[2019-11-16] MEDS: Warfarin Sodium 5 MG TAB PO SCH (16:44)
--- NOTE | 2019-11-16 20:07 | PDOC.HOSPP ---
- Subjective Subjective: Feeling much better today. No BM yet, but his appetite is much better. Breathing much better. Off the oxygen. Getting the CPAP back on now that RT was able to bleed in the oxygen helped him immensely. Ready to go back to the [facility]. - Objective Vital Signs & Weight: Vital Signs (12 hours) Temp Pulse Resp BP BP Pulse Ox 11/16/19 19:24 97.6 F 73 16 144/68 H 94 L 11/16/19 11:59 98.6 F 11/16/19 09:32 80 146/70 H Weight Admit Weight 225 lb Weight 225 lb I&O: 11/15/19 11/16/19 11/17/19 06:59 06:59 06:59 Intake Total 2420 3860 Output Total 2049 3649 1999 Balance 370 210 -1999 Result Diagrams: 11/16/19 03:55 11/14/19 07:18 Additional Labs: Accuchecks 11/16/19 11/16/19 11/16/19 16:05 11:38 03:56 POC Glucose 190 H 190 H 122 H Hospitalist ROS - Medication Medications: Active Medications Generic Name Dose Route Start Last Admin Trade Name Freq PRN Reason Stop Dose Admin Acetaminophen 650 mg 11/10/19 05:45 11/14/19 23:06 Tylenol PO 650 mg Q4H PRN Administration Headache/Fever/Mild Pain (1-3) Hydrocodone Bitart/Acetaminophen 1 tab 11/10/19 05:45 11/15/19 10:12 [place] 5/325 PO 1 tab Q4H PRN Administration Severe Pain (7-10) Amlodipine Besylate 2.5 mg 11/13/19 09:00 11/16/19 09:32 Norvasc PO 2.5 mg DAILY ANDREA Administration Atorvastatin Calcium 20 mg 11/10/19 21:00 11/15/19 20:51 Lipitor PO 20 mg HS ANDREA Administration Flecainide Acetate 100 mg 11/10/19 09:00 11/16/19 10:56 Tambocor PO 100 mg BID ANDREA Administration Gabapentin 300 mg 11/10/19 09:00 11/16/19 09:32 Neurontin PO 300 mg BID ANDREA Administration Gabapentin 600 mg 11/10/19 21:00 11/15/19 20:50 Neurontin PO 600 mg QPM ANDREA Administration Insulin Glargine 20 units/ 0.2 mls @ 0 mls/hr 11/10/19 21:00 11/15/19 20:49 Miscellaneous Medication SC 0.2 mls HS ANDREA Administration Insulin Glargine 43 units/ 0.43 mls @ 0 mls/hr 11/10/19 09:00 11/16/19 09:29 Miscellaneous Medication SC 0.43 mls QAM ANDREA Administration Sodium Chloride 1,000 mls @ 90 mls/hr 11/10/19 13:00 11/16/19 13:56 Normal Saline 0.9% IV 1,000 mls .Q11H7M ANDREA Administration Meropenem 1 gm/ Device 50 mls @ 100 mls/hr 11/15/19 14:00 11/16/19 13:59 IVPB 50 mls Q8HR ANDREA Administration Insulin Human Lispro 0 units 11/10/19 05:57 11/16/19 16:43 Humalog SC 2 unit .MODERATE SLIDING SC PRN Administration Moderate Correctional Scale Metoprolol Tartrate 12.5 mg 11/10/19 09:00 11/16/19 09:30 Lopressor PO 12.5 mg BID ANDREA Administration Ondansetron HCl 4 mg 11/10/19 05:45 11/15/19 10:12 Zofran Odt PO 4 mg Q6H PRN Administration Nausea/Vomiting Ondansetron HCl 4 mg 11/10/19 05:45 11/15/19 13:21 Zofran IVP 4 mg Q6H PRN Administration Nausea/Vomiting Polyethylene Glycol 17 gm 11/14/19 10:30 11/14/19 11:23 Miralax PO 17 gm DAILYPRN PRN Administration Constipation Senna 1 tab 11/14/19 00:22 11/14/19 00:37 Senokot PO 1 tab HSPRN PRN Administration Constipation Senna/Docusate Sodium 1 tab 11/14/19 21:00 11/16/19 09:32 Senokot S PO 1 tab BID ANDREA Administration Warfarin Sodium 5 mg 11/11/19 17:00 11/16/19 16:44 Coumadin PO 5 mg 1700 ANDREA Administration - Exam General Appearance: NAD, awake alert Neck: supple, symmetric, no JVD, no thyromegaly, no lymphadenopathy, no carotid bruit Heart: RRR, no murmur, no gallops, no rubs, normal peripheral pulses Respiratory: CTAB, no wheezes, no rales, no ronchi, normal chest expansion, no tachypnea, normal percussion Gastrointestinal: soft, non-tender, non-distended, normal bowel sounds, no palpable masses, no hepatomegaly, no splenomegaly, no bruit Extremities: no cyanosis, no clubbing, no edema Neurological: no focal deficits Musculoskeletal: generalized weakness Psychiatric: normal affect, normal behavior, A&O x 3 Hosp A/P (1) Pseudomonas urinary tract infection Code(s): N39.0 - URINARY TRACT INFECTION, SITE NOT SPECIFIED; B96.5 - PSEUDOMONAS (MALLEI) CAUSING DISEASES CLASSD ELSWHR Status: Acute (2) Colon cancer Code(s): C18.9 - MALIGNANT NEOPLASM OF COLON, UNSPECIFIED Status: Acute (3) Anemia of chronic disease Code(s): D63.8 - ANEMIA IN OTHER CHRONIC DISEASES CLASSIFIED ELSEWHERE Status : Chronic (4) Atrial fibrillation Code(s): I48.91 - UNSPECIFIED ATRIAL FIBRILLATION Status: Chronic Qualifiers: (5) CKD (chronic kidney disease) stage 3, GFR 30-59 ml/min Code(s): N18.3 - CHRONIC KIDNEY DISEASE, STAGE 3 (MODERATE) Status: Chronic (6) Diabetes mellitus type 2, insulin dependent Code(s): E11.9 - TYPE 2 DIABETES MELLITUS WITHOUT COMPLICATIONS; Z79.4 - FDC (CURRENT) USE OF INSULIN Status: Chronic (7) Hypertension Code(s): I10 - ESSENTIAL (PRIMARY) HYPERTENSION Status: Chronic Qualifiers: (8) ESE (obstructive sleep apnea) Code(s): G47.33 - OBSTRUCTIVE SLEEP APNEA (ADULT) (PEDIATRIC) Status: Chronic (9) Obesity (BMI 30-39.9) Code(s): E66.9 - OBESITY, UNSPECIFIED Status: Chronic (10) Hx of osteomyelitis Code(s): Z87.39 - PERSONAL HISTORY OF DISEASES OF THE MS SYS AND CONN TISS Status: Acute (11) Constipation Code(s): K59.00 - CONSTIPATION, UNSPECIFIED Status: Acute - Plan suspect UTI as primary source of infection. He has bladder dysfunction from the prior surgery for colon cancer. Self-caths. Cx with pseudomonas. Continue IV until DC. Pseudomonas growing from the foot culture. This may be superficial growth, but has a different sensitivity pattern than the urine cultured pseudomonas. Dr. Box changed to Meropenem. Should cover both. Feeling much better now. Stable afib. Continue flecainide and warfarin. Continue amlodipine for BP control. Treatment for his colon cancer has been on hold due to the osteo, surgery. Has a scan scheduled for Tuesday per . Stable anemia. Follow closely. Has had anemia to this degree in the past. Retic count is high, but should probably be a little higher still. Asked RT to work with his CPAP or ours to improve oxygenation/SOB. They did a great job getting this better. Team Lead to help with diet. PT. CXR clear. Incentive spirometer. Discussed with CM. Plan is for him to go back to the [facility]. He will need a total of 14 days of the Meropenem. He is happy to go. Awaiting approval.
[2019-11-16] MEDS: Atorvastatin Calcium 20 MG TAB PO SCH (21:09)
[2019-11-16] MEDS: Insulin Glargine 20 UNITS in Pre-Filled Syringe 1 EACH SC SCH (21:09)
[2019-11-17] MEDS: Sodium Chloride 0.9% 1,000 ML IV SCH ×3 (01:48→23:33)
[2019-11-17] MEDS: MEROPENEM 1 GM/50 ML 1 GM in Premix Bag 1 BAG IVPB SCH ×3 (05:22→21:22)
[2019-11-17 05:34] LABS: #Eosinphils 0.6 thou/uL (0.0-0.7); #Lymphocytes 0.9 thou/uL (1.20-3.40); #Monocytes 0.8 thou/uL (0.11-0.59); #Neutrophils 5.4 thou/uL (1.40-6.50); %Basophils 0.5 % (0.0-1.0); %Eosinophils 7.5 % (0.0-10.0); %Lymphocytes 11.9 % (21.0-51.0); %Monocytes 10.2 % (0.0-10.0); Hemoglobin 7.4 g/dL (14.0-18.0); Mean Corpuscular HGB CONC 33.3 g/dL (32.0-36.0); Mean Corpuscular Hemoglobin 29.4 pg (27.0-31.0); Mean Platelet Volume 6.8 fL (7.4-10.4); Platelet Count 260 thou/uL (130-400); RBC Distribution Width 13.1 % (11.5-14.5); Red Blood Cell (RBC) Count 2.52 mill/uL (4.70-6.10); White Blood Cell (WBC) Count 7.7 thou/uL (4.8-10.8)
[2019-11-17 05:42] LABS: INR-International Normal Ratio 2.3; Prothrombin Time 25.1 SEC (12.0-14.7)
[2019-11-17 05:58] LABS: ALT (SGPT) 25 U/L (8-55); AST (SGOT) 21 U/L (5-34); Albumin 2.6 g/dL (3.4-4.8); Alkaline Phosphatase 108 U/L (40-110); Anion Gap 10 mmol/L (10-20); BUN (Urea Nitrogen) 27 mg/dL (8.4-25.7); Bilirubin, Total 0.3 mg/dL (0.2-1.2); Calc. Creatinine Clearance 88 mL/min (70-130); Carbon Dioxide 23 mmol/L (23-31); Chloride 108 mmol/L (98-107); Estimated GFR-MDRD 65; Globulin 3.2 g/dL (2.4-3.5); Glucose 111 mg/dL (83-110); Potassium 3.6 mmol/L (3.5-5.1); Protein, Total 5.8 g/dL (5.8-8.1); Sodium 137 mmol/L (136-145)
[2019-11-17] MEDS: Gabapentin 300 MG CAP PO SCH ×3 (08:34→21:21)
[2019-11-17] MEDS: Senokot S 8.6-50 MG TAB PO SCH ×2 (08:34→21:36)
[2019-11-17] MEDS: Metoprolol Tartrate 25 MG TAB PO SCH ×2 (08:35→21:21)
[2019-11-17] MEDS: Amlodipine 5 MG TAB PO SCH (08:36)
[2019-11-17] MEDS: Flecainide 50 MG TAB PO SCH ×2 (08:37→21:21)
[2019-11-17] MEDS: Insulin Glargine 43 UNITS in Pre-Filled Syringe 1 EACH SC SCH (08:37)
[2019-11-17] MEDS: Warfarin Sodium 5 MG TAB PO SCH (17:01)
--- NOTE | 2019-11-17 17:18 | PDOC.HOSPP ---
- Subjective Encounter Date: 11/17/19 Encounter Time: 16:00 Subjective: no overnight events. Feeling well and has no complaints. - Objective Vital Signs & Weight: Vital Signs (12 hours) Temp Pulse Resp BP BP Pulse Ox 11/17/19 08:36 70 151/67 H 11/17/19 08:00 98.6 F 70 18 151/67 H 98 Weight Admit Weight 225 lb Weight 225 lb I&O: 11/16/19 11/17/19 11/18/19 06:59 06:59 06:59 Intake Total 3860 1590 Output Total 3650 3750 Balance 210 -2160 Result Diagrams: 11/17/19 05:17 11/17/19 05:17 Additional Labs: Accuchecks 11/17/19 11/17/19 11/17/19 16:23 11:15 05:45 POC Glucose 126 H 132 H 119 H 11/16/19 20:39 POC Glucose 176 H Hospitalist ROS - Review of Systems Constitutional: denies: fever, chills, sweats, weakness, malaise, other Respiratory: denies: cough, dry, shortness of breath, hemoptysis, SOB with excertion, pleuritic pain, sputum, wheezing, other Cardiovascular: denies: chest pain, palpitations, orthopnea, paroxysmal noc. dyspnea, edema, light headedness, other Gastrointestinal: denies: nausea, vomiting, abdominal pain, diarrhea, constipation, melena, hematochezia, other Genitourinary: denies: dysuria, frequency, incontinence, hematuria, retention, other All other systems reviewed; all pertinent +/- noted in HPI/Subj - Medication Medications: Active Medications Generic Name Dose Route Start Last Admin Trade Name Freq PRN Reason Stop Dose Admin Acetaminophen 650 mg 11/10/19 05:45 11/14/19 23:06 Tylenol PO 650 mg Q4H PRN Administration Headache/Fever/Mild Pain (1-3) Hydrocodone Bitart/Acetaminophen 1 tab 11/10/19 05:45 11/15/19 10:12 [place] 5/325 PO 1 tab Q4H PRN Administration Severe Pain (7-10) Amlodipine Besylate 2.5 mg 11/13/19 09:00 11/17/19 08:36 Norvasc PO 2.5 mg DAILY ANDREA Administration Atorvastatin Calcium 20 mg 11/10/19 21:00 11/16/19 21:09 Lipitor PO 20 mg HS ANDREA Administration Flecainide Acetate 100 mg 11/10/19 09:00 11/17/19 08:37 Tambocor PO 100 mg BID ANDREA Administration Gabapentin 300 mg 11/10/19 09:00 11/17/19 08:34 Neurontin PO 300 mg BID ANDREA Administration Gabapentin 600 mg 11/10/19 21:00 11/16/19 21:09 Neurontin PO 600 mg QPM ANDREA Administration Insulin Glargine 20 units/ 0.2 mls @ 0 mls/hr 11/10/19 21:00 11/16/19 21:09 Miscellaneous Medication SC 0.2 mls HS ANDREA Administration Insulin Glargine 43 units/ 0.43 mls @ 0 mls/hr 11/10/19 09:00 11/17/19 08:37 Miscellaneous Medication SC 0.43 mls QAM ANDREA Administration Sodium Chloride 1,000 mls @ 90 mls/hr 11/10/19 13:00 11/17/19 14:12 Normal Saline 0.9% IV 1,000 mls .Q11H7M ANDREA Administration Meropenem 1 gm/ Device 50 mls @ 100 mls/hr 11/15/19 14:00 11/17/19 13:14 IVPB 50 mls Q8HR ANDREA Administration Insulin Human Lispro 0 units 11/10/19 05:57 11/16/19 16:43 Humalog SC 2 unit .MODERATE SLIDING SC PRN Administration Moderate Correctional Scale Metoprolol Tartrate 12.5 mg 11/10/19 09:00 11/17/19 08:35 Lopressor PO 12.5 mg BID ANDREA Administration Ondansetron HCl 4 mg 11/10/19 05:45 11/15/19 10:12 Zofran Odt PO 4 mg Q6H PRN Administration Nausea/Vomiting Ondansetron HCl 4 mg 11/10/19 05:45 11/15/19 13:21 Zofran IVP 4 mg Q6H PRN Administration Nausea/Vomiting Polyethylene Glycol 17 gm 11/14/19 10:30 11/14/19 11:23 Miralax PO 17 gm DAILYPRN PRN Administration Constipation Senna 1 tab 11/14/19 00:22 11/14/19 00:37 Senokot PO 1 tab HSPRN PRN Administration Constipation Senna/Docusate Sodium 1 tab 11/14/19 21:00 11/17/19 08:34 Senokot S PO Not Given BID ANDREA Warfarin Sodium 5 mg 11/11/19 17:00 11/17/19 17:01 Coumadin PO 5 mg 1700 ANDREA Administration - Exam General Appearance: NAD, awake alert ENT: normocephalic atraumatic, no oropharyngeal lesions, moist mucosa Neck: supple, symmetric, no JVD, no thyromegaly, no lymphadenopathy, no carotid bruit Heart: RRR, no murmur, no gallops, no rubs, normal peripheral pulses Respiratory: CTAB, no wheezes, no rales, no ronchi, normal chest expansion, no tachypnea, normal percussion Skin - other findings: right foot bandaged. Neurological: cranial nerve grossly intact, normal sensation to touch, no weakness, no focal deficits, no new deficit Psychiatric: normal affect, normal behavior, A&O x 3 Hosp A/P (1) Pseudomonas urinary tract infection Code(s): N39.0 - URINARY TRACT INFECTION, SITE NOT SPECIFIED; B96.5 - PSEUDOMONAS (MALLEI) CAUSING DISEASES CLASSD ELSWHR Status: Acute Plan: responded well to meropenem -will continue as outpatient as well (2) Right foot ulcer Code(s): L97.519 - NON-PRS CHRONIC ULCER OTH PRT RIGHT FOOT W UNSP SEVERITY Status: Acute Plan: wound culture growing pseudomonas and MRSA based on ID note, wound infection not suspected; likely superficial colonization patient has been afebrile throughout and white count has been downtrending on meropenem will continue meropenem only will reassess wound in the AM (3) Paroxysmal atrial fibrillation Code(s): I48.0 - PAROXYSMAL ATRIAL FIBRILLATION Status: Acute Plan: rate controlled and on warfarin; INR at goal (4) Diabetes mellitus type 2, insulin dependent Code(s): E11.9 - TYPE 2 DIABETES MELLITUS WITHOUT COMPLICATIONS; Z79.4 - BOTTOM CAGER (CURRENT) USE OF INSULIN Status: Chronic Plan: BG at goal; will continue same regimen (5) Hypertension Code(s): I10 - ESSENTIAL (PRIMARY) HYPERTENSION Status: Chronic Qualifiers: Hypertension type: essential hypertension Plan: well controlled; will cotinue same regimen
[2019-11-17 18:32] LABS: #Basophils 0.1 thou/uL (0.0-0.2); #Eosinphils 0.6 thou/uL (0.0-0.7); #Lymphocytes 0.8 thou/uL (1.20-3.40); #Monocytes 0.6 thou/uL (0.11-0.59); #Neutrophils 5.2 thou/uL (1.40-6.50); %Basophils 0.8 % (0.0-1.0); %Eosinophils 8.1 % (0.0-10.0); %Lymphocytes 10.9 % (21.0-51.0); %Monocytes 8.7 % (0.0-10.0); %Neutrophils 71.5 % (42.0-75.0); Hemoglobin 8.6 g/dL (14.0-18.0); Mean Corpuscular HGB CONC 33.7 g/dL (32.0-36.0); Mean Corpuscular Hemoglobin 30.4 pg (27.0-31.0); Mean Corpuscular Volume 90.3 fL (78.0-98.0); Mean Platelet Volume 6.6 fL (7.4-10.4); Platelet Count 299 thou/uL (130-400); RBC Distribution Width 13.4 % (11.5-14.5); Red Blood Cell (RBC) Count 2.82 mill/uL (4.70-6.10); White Blood Cell (WBC) Count 7.2 thou/uL (4.8-10.8)
[2019-11-17 18:54] LABS: Anion Gap 14 mmol/L (10-20); BUN (Urea Nitrogen) 24 mg/dL (8.4-25.7); Calc. Creatinine Clearance 84 mL/min (70-130); Calcium 8.4 mg/dL (7.8-10.44); Carbon Dioxide 20 mmol/L (23-31); Chloride 106 mmol/L (98-107); Estimated GFR-MDRD 62; Glucose 139 mg/dL (83-110); Potassium 3.9 mmol/L (3.5-5.1); Sodium 136 mmol/L (136-145)
[2019-11-17] MEDS: Atorvastatin Calcium 20 MG TAB PO SCH (21:21)
[2019-11-17] MEDS: HYDROcodone/Acetaminophen 5/325 mg Tablet PO PRN (21:22)
[2019-11-17] MEDS: Insulin Glargine 20 UNITS in Pre-Filled Syringe 1 EACH SC SCH (21:22)
[2019-11-17] MEDS: Acetaminophen 325 MG TAB PO PRN (23:41)
[2019-11-18] MEDS: MEROPENEM 1 GM/50 ML 1 GM in Premix Bag 1 BAG IVPB SCH ×3 (05:12→21:13)
[2019-11-18 05:39] LABS: INR-International Normal Ratio 2.4; Prothrombin Time 26.2 SEC (12.0-14.7)
[2019-11-18] MEDS: Insulin Glargine 43 UNITS in Pre-Filled Syringe 1 EACH SC SCH (08:56)
[2019-11-18] MEDS: Flecainide 50 MG TAB PO SCH ×2 (08:57→21:13)
[2019-11-18] MEDS: Metoprolol Tartrate 25 MG TAB PO SCH ×2 (08:57→21:13)
[2019-11-18] MEDS: Senokot S 8.6-50 MG TAB PO SCH ×2 (08:58→21:46)
[2019-11-18] MEDS: Gabapentin 300 MG CAP PO SCH ×3 (08:58→21:13)
[2019-11-18] MEDS: Amlodipine 5 MG TAB PO SCH (08:59)
[2019-11-18] MEDS: Sodium Chloride 0.9% 1,000 ML IV SCH ×3 (09:01→21:14)
--- NOTE | 2019-11-18 14:04 | PDOC.HOSPP ---
- Subjective Encounter Date: 11/18/19 Encounter Time: 08:00 Subjective: no overnight events. This morning, laying comfortably in bed and has no complaints. - Objective Vital Signs & Weight: Vital Signs (12 hours) Temp Pulse Resp BP BP Pulse Ox 11/18/19 08:59 76 174/74 H 11/18/19 08:00 97.9 F 62 18 174/74 H 99 Weight Admit Weight 225 lb Weight 225 lb I&O: 11/17/19 11/18/19 11/19/19 06:59 06:59 06:59 Intake Total 1590 3580 Output Total 3750 3250 Balance -2160 330 Result Diagrams: 11/17/19 18:15 11/17/19 18:15 Additional Labs: Accuchecks 11/18/19 11/18/19 11/17/19 11:36 05:18 20:22 POC Glucose 132 H 114 H 161 H 11/17/19 16:23 POC Glucose 126 H Hospitalist ROS - Review of Systems Constitutional: denies: fever, chills, sweats, weakness, malaise, other Eyes: denies: pain, vision change, conjunctivae inflammation, eyelid inflammation, redness, other Respiratory: denies: cough, dry, shortness of breath, hemoptysis, SOB with excertion, pleuritic pain, sputum, wheezing, other Cardiovascular: denies: chest pain, palpitations, orthopnea, paroxysmal noc. dyspnea, edema, light headedness, other Gastrointestinal: denies: nausea, vomiting, abdominal pain, diarrhea, constipation, melena, hematochezia, other Genitourinary: denies: dysuria, frequency, incontinence, hematuria, retention, other Skin: reports: other (right foot ulceration) Neurological: denies: weakness, numbness, incoordination, change in speech, confusion, seizures, other - Medication Medications: Active Medications Generic Name Dose Route Start Last Admin Trade Name Freq PRN Reason Stop Dose Admin Acetaminophen 650 mg 11/10/19 05:45 11/17/19 23:41 Tylenol PO 650 mg Q4H PRN Administration Headache/Fever/Mild Pain (1-3) Hydrocodone Bitart/Acetaminophen 1 tab 11/10/19 05:45 11/17/19 21:22 [place] 5/325 PO 1 tab Q4H PRN Administration Severe Pain (7-10) Amlodipine Besylate 2.5 mg 11/13/19 09:00 11/18/19 08:59 Norvasc PO 2.5 mg DAILY ANDREA Administration Atorvastatin Calcium 20 mg 11/10/19 21:00 11/17/19 21:21 Lipitor PO 20 mg HS ANDREA Administration Flecainide Acetate 100 mg 11/10/19 09:00 11/18/19 08:57 Tambocor PO 100 mg BID ANDREA Administration Gabapentin 300 mg 11/10/19 09:00 11/18/19 08:58 Neurontin PO 300 mg BID ANDREA Administration Gabapentin 600 mg 11/10/19 21:00 11/17/19 21:21 Neurontin PO 600 mg QPM ANDREA Administration Insulin Glargine 20 units/ 0.2 mls @ 0 mls/hr 11/10/19 21:00 11/17/19 21:22 Miscellaneous Medication SC 0.2 mls HS ANDREA Administration Insulin Glargine 43 units/ 0.43 mls @ 0 mls/hr 11/10/19 09:00 11/18/19 08:56 Miscellaneous Medication SC 0.43 mls QAM ANDREA Administration Sodium Chloride 1,000 mls @ 90 mls/hr 11/10/19 13:00 11/18/19 09:01 Normal Saline 0.9% IV 1,000 mls .Q11H7M ANDREA Administration Meropenem 1 gm/ Device 50 mls @ 100 mls/hr 11/15/19 14:00 11/18/19 05:12 IVPB 50 mls Q8HR ANDREA Administration Insulin Human Lispro 0 units 11/10/19 05:57 11/16/19 16:43 Humalog SC 2 unit .MODERATE SLIDING SC PRN Administration Moderate Correctional Scale Metoprolol Tartrate 12.5 mg 11/10/19 09:00 11/18/19 08:57 Lopressor PO 12.5 mg BID ANDREA Administration Ondansetron HCl 4 mg 11/10/19 05:45 11/15/19 10:12 Zofran Odt PO 4 mg Q6H PRN Administration Nausea/Vomiting Ondansetron HCl 4 mg 11/10/19 05:45 11/15/19 13:21 Zofran IVP 4 mg Q6H PRN Administration Nausea/Vomiting Polyethylene Glycol 17 gm 11/14/19 10:30 11/14/19 11:23 Miralax PO 17 gm DAILYPRN PRN Administration Constipation Senna 1 tab 11/14/19 00:22 11/14/19 00:37 Senokot PO 1 tab HSPRN PRN Administration Constipation Senna/Docusate Sodium 1 tab 11/14/19 21:00 11/18/19 08:58 Senokot S PO 1 tab BID ANDREA Administration Warfarin Sodium 5 mg 11/11/19 17:00 11/17/19 17:01 Coumadin PO 5 mg 1700 ANDREA Administration - Exam General Appearance: NAD, awake alert Eye: PERRL Neck: supple, symmetric, no JVD, no thyromegaly, no lymphadenopathy, no carotid bruit Heart: RRR, no murmur, no gallops, no rubs, normal peripheral pulses Respiratory: CTAB, no wheezes, no rales, no ronchi, normal chest expansion, no tachypnea, normal percussion Gastrointestinal: soft, non-tender, non-distended, normal bowel sounds, no palpable masses, no hepatomegaly, no splenomegaly, no bruit Extremities: no cyanosis, no clubbing, no edema Extremities - other findings: clean dressing over the right foot Neurological: cranial nerve grossly intact, normal sensation to touch, no weakness, no focal deficits, no new deficit Psychiatric: normal affect, normal behavior, A&O x 3 Hosp A/P (1) Pseudomonas urinary tract infection Code(s): N39.0 - URINARY TRACT INFECTION, SITE NOT SPECIFIED; B96.5 - PSEUDOMONAS (MALLEI) CAUSING DISEASES CLASSD ELSWHR Status: Acute Plan: will conitnue meropenem as outpatient (2) Right foot ulcer Code(s): L97.519 - NON-PRS CHRONIC ULCER OTH PRT RIGHT FOOT W UNSP SEVERITY Status: Acute Plan: per ID, wound appears noninfected wound culture growing pseudomonas and MRSA, but rare white count; most likely colonization rather than infection (3) Paroxysmal atrial fibrillation Code(s): I48.0 - PAROXYSMAL ATRIAL FIBRILLATION Status: Acute Plan: currently well controlled; continue same management (4) Diabetes mellitus type 2, insulin dependent Code(s): E11.9 - TYPE 2 DIABETES MELLITUS WITHOUT COMPLICATIONS; Z79.4 - RESIDENTIAL (CURRENT) USE OF INSULIN Status: Chronic Plan: well controlled (5) Hypertension Code(s): I10 - ESSENTIAL (PRIMARY) HYPERTENSION Status: Chronic Qualifiers: Hypertension type: essential hypertension Plan: well controlled - Plan Discharge pending tomorrow after case management arranges meropenem and placement
[2019-11-18] MEDS: Warfarin Sodium 5 MG TAB PO SCH (17:14)
[2019-11-18] MEDS: Atorvastatin Calcium 20 MG TAB PO SCH (21:13)
[2019-11-18] MEDS: Insulin Glargine 20 UNITS in Pre-Filled Syringe 1 EACH SC SCH (21:14)
[2019-11-19] MEDS ORDERED: Metoprolol Tartrate 25 MG TAB PO SCH (00:30)
[2019-11-19] MEDS: MEROPENEM 1 GM/50 ML 1 GM in Premix Bag 1 BAG IVPB SCH ×3 (05:17→21:02)
[2019-11-19 05:43] LABS: INR-International Normal Ratio 2.5; Prothrombin Time 26.4 SEC (12.0-14.7)
--- NOTE | 2019-11-19 08:06 | PDOC.HOSPP ---
- Subjective Encounter Date: 11/19/19 Encounter Time: 13:00 Subjective: Patient without complaints. Ready to go to Swing bed at [place]. - Objective Vital Signs & Weight: Vital Signs (12 hours) BP 11/19/19 04:59 168/77 H 11/19/19 00:24 176/79 H Weight Admit Weight 225 lb Weight 225 lb I&O: 11/18/19 11/19/19 11/20/19 06:59 06:59 06:59 Intake Total 3580 3260 Output Total 3250 7700 Balance 330 -4440 Result Diagrams: 11/17/19 18:15 11/17/19 18:15 Additional Labs: Accuchecks 11/19/19 11/18/19 11/18/19 05:22 20:46 16:12 POC Glucose 136 H 174 H 108 11/18/19 11:36 POC Glucose 132 H Hospitalist ROS - Review of Systems Constitutional: denies: fever, chills Respiratory: denies: cough, shortness of breath Cardiovascular: denies: chest pain, palpitations, orthopnea Gastrointestinal: denies: nausea, vomiting, abdominal pain - Medication Medications: Active Medications Generic Name Dose Route Start Last Admin Trade Name Freq PRN Reason Stop Dose Admin Acetaminophen 650 mg 11/10/19 05:45 11/17/19 23:41 Tylenol PO 650 mg Q4H PRN Administration Headache/Fever/Mild Pain (1-3) Hydrocodone Bitart/Acetaminophen 1 tab 11/10/19 05:45 11/17/19 21:22 [place] 5/325 PO 1 tab Q4H PRN Administration Severe Pain (7-10) Amlodipine Besylate 2.5 mg 11/13/19 09:00 11/18/19 08:59 Norvasc PO 2.5 mg DAILY ANDREA Administration Atorvastatin Calcium 20 mg 11/10/19 21:00 11/18/19 21:13 Lipitor PO 20 mg HS ANDREA Administration Flecainide Acetate 100 mg 11/10/19 09:00 11/18/19 21:13 Tambocor PO 100 mg BID ANDREA Administration Gabapentin 300 mg 11/10/19 09:00 11/18/19 21:13 Neurontin PO 300 mg BID ANDREA Administration Gabapentin 600 mg 11/10/19 21:00 11/18/19 21:13 Neurontin PO 600 mg QPM ANDREA Administration Insulin Glargine 20 units/ 0.2 mls @ 0 mls/hr 11/10/19 21:00 11/18/19 21:14 Miscellaneous Medication SC 0.2 mls HS ANDREA Administration Insulin Glargine 43 units/ 0.43 mls @ 0 mls/hr 11/10/19 09:00 11/18/19 08:56 Miscellaneous Medication SC 0.43 mls QAM ANDREA Administration Meropenem 1 gm/ Device 50 mls @ 100 mls/hr 11/15/19 14:00 11/19/19 05:17 IVPB 50 mls Q8HR ANDREA Administration Insulin Human Lispro 0 units 11/10/19 05:57 11/16/19 16:43 Humalog SC 2 unit .MODERATE SLIDING SC PRN Administration Moderate Correctional Scale Metoprolol Tartrate 12.5 mg 11/10/19 09:00 11/18/19 21:13 Lopressor PO 12.5 mg BID ANDREA Administration Ondansetron HCl 4 mg 11/10/19 05:45 11/15/19 10:12 Zofran Odt PO 4 mg Q6H PRN Administration Nausea/Vomiting Ondansetron HCl 4 mg 11/10/19 05:45 11/15/19 13:21 Zofran IVP 4 mg Q6H PRN Administration Nausea/Vomiting Polyethylene Glycol 17 gm 11/14/19 10:30 11/14/19 11:23 Miralax PO 17 gm DAILYPRN PRN Administration Constipation Senna 1 tab 11/14/19 00:22 11/14/19 00:37 Senokot PO 1 tab HSPRN PRN Administration Constipation Senna/Docusate Sodium 1 tab 11/14/19 21:00 11/18/19 21:46 Senokot S PO Not Given BID [facility] Warfarin Sodium 5 mg 11/11/19 17:00 11/18/19 17:14 Coumadin PO 5 mg 1700 ANDREA Administration - Exam General Appearance: NAD, awake alert ENT: moist mucosa Heart: RRR, no murmur, no gallops, no rubs Respiratory: CTAB, no wheezes, no rales, no ronchi Gastrointestinal: soft, non-tender, non-distended, normal bowel sounds Psychiatric: normal affect, normal behavior, A&O x 3 Hosp A/P (1) Pseudomonas urinary tract infection Code(s): N39.0 - URINARY TRACT INFECTION, SITE NOT SPECIFIED; B96.5 - PSEUDOMONAS (MALLEI) CAUSING DISEASES CLASSD ELSWHR Status: Acute (2) Right foot ulcer Code(s): L97.519 - NON-PRS CHRONIC ULCER OTH PRT RIGHT FOOT W UNSP SEVERITY Status: Acute (3) Paroxysmal atrial fibrillation Code(s): I48.0 - PAROXYSMAL ATRIAL FIBRILLATION Status: Chronic (4) Chronic anticoagulation Code(s): Z79.01 - MCC (CURRENT) USE OF ANTICOAGULANTS Status: Chronic (5) Diabetes mellitus type 2, insulin dependent Code(s): E11.9 - TYPE 2 DIABETES MELLITUS WITHOUT COMPLICATIONS; Z79.4 - M[facility] (CURRENT) USE OF INSULIN Status: Chronic (6) Hypertension Code(s): I10 - ESSENTIAL (PRIMARY) HYPERTENSION Status: Chronic Qualifiers: Hypertension type: essential hypertension Qualified Code(s): I10 - Essential (primary) hypertension (7) ESE (obstructive sleep apnea) Code(s): G47.33 - OBSTRUCTIVE SLEEP APNEA (ADULT) (PEDIATRIC) Status: Chronic (8) Obesity (BMI 30-39.9) Code(s): E66.9 - OBESITY, UNSPECIFIED Status: Chronic - Plan Arranging Meropenem at Swing Bed at [facility], discharge once insurance approval
[2019-11-19] MEDS: Senokot S 8.6-50 MG TAB PO SCH ×2 (09:10→21:03)
[2019-11-19] MEDS: Flecainide 50 MG TAB PO SCH ×2 (09:10→21:02)
[2019-11-19] MEDS: Metoprolol Tartrate 25 MG TAB PO SCH ×2 (09:11→21:03)
[2019-11-19] MEDS: Gabapentin 300 MG CAP PO SCH ×3 (09:11→21:02)
[2019-11-19] MEDS: Insulin Glargine 43 UNITS in Pre-Filled Syringe 1 EACH SC SCH (09:12)
[2019-11-19] MEDS: Amlodipine 5 MG TAB PO SCH (09:15)
[2019-11-19] MEDS: HumaLOG 300 UNITS/3 ML VIAL SC PRN (13:30)
--- NOTE | 2019-11-19 16:22 | PRG ---
DATE OF SERVICE: SUBJECTIVE: The patient is feeling back to baseline and is willing to waiting to be transferred to swing bed. OBJECTIVE: VITAL SIGNS: His vital signs are normal. LUNGS: Clear. HEART: S1 and S2 regular rate. ABDOMEN: Soft. He is doing in and out catheterizations again. LABORATORY DATA: White cell count 7.2, hemoglobin 8.6, and creatinine is 1.16. PLAN: The plan is to continue meropenem until the end of the month. The patient already had imaging study completed and there is no evidence of obstructive uropathy. Job ID: [id number]
[2019-11-19] MEDS: Warfarin Sodium 5 MG TAB PO SCH (17:55)
[2019-11-19] MEDS: Atorvastatin Calcium 20 MG TAB PO SCH (21:02)
[2019-11-19] MEDS: HYDROcodone/Acetaminophen 5/325 mg Tablet PO PRN (21:03)
[2019-11-19] MEDS: Insulin Glargine 20 UNITS in Pre-Filled Syringe 1 EACH SC SCH (21:04)
[2019-11-20] MEDS: MEROPENEM 1 GM/50 ML 1 GM in Premix Bag 1 BAG IVPB SCH ×2 (05:09→14:10)
[2019-11-20 05:57] LABS: INR-International Normal Ratio 2.4; Prothrombin Time 25.7 SEC (12.0-14.7)
[2019-11-20 07:57] VITALS: TEMP 97.9
--- NOTE | 2019-11-20 08:11 | PDOC.HOSPP ---
- Subjective Encounter Date: 11/20/19 Encounter Time: 10:20 Subjective: Patient without complaints. No pain. No fever. Awaiting swing bed placement. - Objective Vital Signs & Weight: Vital Signs (12 hours) Temp Pulse Resp BP Pulse Ox 11/20/19 07:56 97.9 F 66 14 157/70 H 97 Weight Admit Weight 225 lb Weight 225 lb I&O: 11/19/19 11/20/19 11/21/19 06:59 06:59 06:59 Intake Total 3260 1140 Output Total 7700 1825 Balance -4440 -685 Result Diagrams: 11/17/19 18:15 11/17/19 18:15 Additional Labs: Accuchecks 11/20/19 11/19/19 11/19/19 05:14 20:12 16:41 POC Glucose 105 156 H 108 11/19/19 11:27 POC Glucose 190 H Hospitalist ROS - Review of Systems Constitutional: denies: fever, chills Respiratory: denies: cough, shortness of breath Cardiovascular: denies: chest pain, palpitations, orthopnea Gastrointestinal: denies: nausea, vomiting, abdominal pain Genitourinary: denies: dysuria, hematuria - Medication Medications: Active Medications Generic Name Dose Route Start Last Admin Trade Name Freq PRN Reason Stop Dose Admin Acetaminophen 650 mg 11/10/19 05:45 11/17/19 23:41 Tylenol PO 650 mg Q4H PRN Administration Headache/Fever/Mild Pain (1-3) Amlodipine Besylate 2.5 mg 11/13/19 09:00 11/19/19 09:15 Norvasc PO 2.5 mg DAILY ANDREA Administration Atorvastatin Calcium 20 mg 11/10/19 21:00 11/19/19 21:02 Lipitor PO 20 mg HS ANDREA Administration Flecainide Acetate 100 mg 11/10/19 09:00 11/19/19 21:02 Tambocor PO 100 mg BID ANDREA Administration Gabapentin 300 mg 11/10/19 09:00 11/19/19 21:02 Neurontin PO 300 mg BID ANDREA Administration Gabapentin 600 mg 11/10/19 21:00 11/19/19 21:02 Neurontin PO 600 mg QPM ANDREA Administration Insulin Glargine 20 units/ 0.2 mls @ 0 mls/hr 11/10/19 21:00 11/19/19 21:04 Miscellaneous Medication SC 0.2 mls HS ANDREA Administration Insulin Glargine 43 units/ 0.43 mls @ 0 mls/hr 11/10/19 09:00 11/19/19 09:12 Miscellaneous Medication SC 0.43 mls QAM ANDREA Administration Meropenem 1 gm/ Device 50 mls @ 100 mls/hr 11/15/19 14:00 11/20/19 05:09 IVPB 50 mls Q8HR ANDREA Administration Insulin Human Lispro 0 units 11/10/19 05:57 11/19/19 13:30 Humalog SC 2 unit .MODERATE SLIDING SC PRN Administration Moderate Correctional Scale Metoprolol Tartrate 12.5 mg 11/10/19 09:00 11/19/19 21:03 Lopressor PO 12.5 mg BID ANDREA Administration Ondansetron HCl 4 mg 11/10/19 05:45 11/15/19 10:12 Zofran Odt PO 4 mg Q6H PRN Administration Nausea/Vomiting Ondansetron HCl 4 mg 11/10/19 05:45 11/15/19 13:21 Zofran IVP 4 mg Q6H PRN Administration Nausea/Vomiting Polyethylene Glycol 17 gm 11/14/19 10:30 11/14/19 11:23 Miralax PO 17 gm DAILYPRN PRN Administration Constipation Senna 1 tab 11/14/19 00:22 11/14/19 00:37 Senokot PO 1 tab HSPRN PRN Administration Constipation Senna/Docusate Sodium 1 tab 11/14/19 21:00 11/19/19 21:03 Senokot S PO Not Given BID [facility] Warfarin Sodium 5 mg 11/11/19 17:00 11/19/19 17:55 Coumadin PO 5 mg 1700 ANDREA Administration - Exam General Appearance: NAD, awake alert Heart: RRR, no murmur, no gallops, no rubs Respiratory: CTAB, no wheezes, no rales, no ronchi Gastrointestinal: soft, non-tender, non-distended, normal bowel sounds Psychiatric: normal affect, normal behavior, A&O x 3 Hosp A/P (1) Pseudomonas urinary tract infection Code(s): N39.0 - URINARY TRACT INFECTION, SITE NOT SPECIFIED; B96.5 - PSEUDOMONAS (MALLEI) CAUSING DISEASES CLASSD ELSWHR Status: Acute (2) Right foot ulcer Code(s): L97.519 - NON-PRS CHRONIC ULCER OTH PRT RIGHT FOOT W UNSP SEVERITY Status: Acute (3) Paroxysmal atrial fibrillation Code(s): I48.0 - PAROXYSMAL ATRIAL FIBRILLATION Status: Chronic (4) Chronic anticoagulation Code(s): Z79.01 - UNIT AIDE (CURRENT) USE OF ANTICOAGULANTS Status: Chronic (5) Diabetes mellitus type 2, insulin dependent Code(s): E11.9 - TYPE 2 DIABETES MELLITUS WITHOUT COMPLICATIONS; Z79.4 - [facility] (CURRENT) USE OF INSULIN Status: Chronic (6) Hypertension Code(s): I10 - ESSENTIAL (PRIMARY) HYPERTENSION Status: Chronic Qualifiers: Hypertension type: essential hypertension Qualified Code(s): I10 - Essential (primary) hypertension (7) ESE (obstructive sleep apnea) Code(s): G47.33 - OBSTRUCTIVE SLEEP APNEA (ADULT) (PEDIATRIC) Status: Chronic (8) Obesity (BMI 30-39.9) Code(s): E66.9 - OBESITY, UNSPECIFIED Status: Chronic - Plan Arranging Meropenem at Swing Bed at [facility], discharge once insurance approval, Meropenem until the end of the month per Dr. Box last day November 30, 2019.
[2019-11-20] MEDS: Insulin Glargine 43 UNITS in Pre-Filled Syringe 1 EACH SC SCH (09:17)
[2019-11-20] MEDS: Metoprolol Tartrate 25 MG TAB PO SCH (09:19)
[2019-11-20] MEDS: Senokot S 8.6-50 MG TAB PO SCH (09:19)
[2019-11-20] MEDS: Amlodipine 5 MG TAB PO SCH (09:20)
[2019-11-20] MEDS: Gabapentin 300 MG CAP PO SCH (09:20)
[2019-11-20] MEDS: Flecainide 50 MG TAB PO SCH (12:13)
[2019-11-20 15:48] VITALS: BP 141/72
[2019-11-20] MEDS: Warfarin Sodium 5 MG TAB PO SCH (16:40)
[2019-11-20] MEDS: HumaLOG 300 UNITS/3 ML VIAL SC PRN (16:40)
--- NOTE | 2019-11-21 07:34 | DIS ---
DATE OF ADMISSION: 11/10/2019 DATE OF DISCHARGE: 11/20/2019 PRIMARY CARE PHYSICIAN: Jose Jones MD REASONS FOR ADMISSION: Sepsis. DIAGNOSES AT DISCHARGE: 1. Pseudomonas urinary tract infection and pyelonephritis. 2. Right foot ulcer. 3. Paroxysmal atrial fibrillation. 4. Chronic anticoagulation. 5. Diabetes mellitus type 2, insulin dependent. 6. Hypertension. 7. Obstructive sleep apnea. 8. Obesity. 9. Metastatic colon cancer status post surgery and chemotherapy. PROCEDURES PERFORMED: CT abdomen and pelvis showed a stone protocol showing hypodensities in the liver and did not look like simple cysts and small bilateral pleural effusions and the left renal cyst. CONSULTATIONS: Infectious Disease, Reggie Box MD SUMMARY OF HOSPITAL COURSE: This is a 69-year-old white male with a past medical history of metastatic colon cancer to liver and lung with surgery in 2008, chemotherapy and then recurrence. Most recent chemotherapy was in 2019. He does have a MediPort in place, also with paroxysmal atrial fibrillation on Coumadin and recurrent osteomyelitis involving the right foot with multiple debridements and most recently completed a course of IV antibiotics about a week previous to this admission. The patient started developing chills, shakes, and fevers at home up to 102, prompting his evaluation. He had blood in urine, cultures done at the emergency room, was transferred here. The patient was put on IV antibiotics, treated with IV Rocephin. His urine culture eventually grew out Pseudomonas that was sensitive to cefepime and fluoroquinolones. However, the patient cannot have fluoroquinolones secondary to his current medications, so he was put on meropenem. He then was also grew Pseudomonas that was resistant to the cefepime from his foot wound. This did grow back. This was still sensitive to his meropenem, so meropenem was the antibiotic that Dr. Box decided to treating with and recommended a treatment course until November 30. The patient had resolution of his sepsis, was feeling much better, strength is improving with physical therapy and he is being transferred to a swing bed in [place] to complete his IV antibiotics. DISCHARGE MANAGEMENT: Discharged to swing bed at [facility]. ACTIVITY: As tolerated. DIET: Diabetic diet with Glucerna b.i.d. and Chris b.i.d. THERAPY: Physical therapy, occupational therapy, and wound care. IV therapy instructions MediPort. FOLLOWUP: Follow up with Dr. Box as an outpatient. DISCHARGE MEDICATIONS: 1. Acetaminophen as needed. 2. Amlodipine 2.5 mg daily. 3. Atorvastatin 20 mg at night. 4. Flecainide 100 mg twice a day. 5. Gabapentin 600 mg at night and 300 mg in the morning and at noon. 6. Milk of magnesia as needed. 7. Metoprolol tartrate 12.5 mg twice a day. 8. Zofran as needed. 9. MiraLAX as needed. 10. Sennosides needed. 11. Warfarin 5 mg daily. 12. Lantus 20 units subcu at night and 43 units in the morning. 13. Meropenem 1 g IV every 8 hours until last day is November 30. TIME SPENT: Arranging the details of this discharge took 35 minutes. Job ID: [id number]
--- NOTE | 2019-11-22 09:45 | PQF ---
RAUDEL OCASIO SAVAN, MD [id number] ONC-132 [id number] CLINICAL DOCUMENTATION CLARIFICATION FORM: POST DISCHARGE Addendum to original discharge summary date: ____ Late entry note date: __ DATE:11/22/2019 ATTN: ANJU JACQUES MD Please exercise your independent, professional judgment in responding to the clarification form. Clinical indicators are provided on the bottom of this form for your review Please check appropriate box(s): [ ] UTI is due to Self-catheterization complication [ ] UTI is not due to Self-catheterization complication [ ] Other diagnosis [ ] Unable to determine In addition, please specify: Present on Admission (POA): [ ] Yes [ ] No [ ] Unable to determine For continuity of documentation, please document condition throughout progress notes and discharge summary. Thank You. CLINICAL INDICATORS - SIGNS / SYMPTOMS / LABS Patient has a neurogenic bladder secondary to prior colon cancer surgery and intermittently self catheterizes 4 times per day-Documented in H&P on 11/10 by Anju Jacques. Possible concomitant urinary tract infection in a patient who self catheterizes himself-Documented in H&P on 11/10 by Anju Jacques. Suspect UTI as primary source of infection,He has bladdr dysfunction from the prior surgery for colon cancer, self cathes-Documented in Hospitalist progress note on 11/10 by Jovan Jackman The patient will contine to have this problem and may consider in and out catheterization insted of an inwelling foly catheter or a suprapubic catheter- Documented in PN 11/19 by Reggie Box Pseudomonas urinary tract infection and pyelonephritis-Documented in Discharge summary on 11/20 by Chris Mccracken MD His urine culture eventually grew out pseudomonas-Documented in Discharge summary on 11/20 by Chris Mccracken MD RISK FACTORS Pseudomonas urinary tract infection and pyelonephritis-Documented in Discharge summary on 11/20 by Chris Mccracken MD TREATMENT: Treated with IV Rocephin-Documented in Discharge summary on 11/20 by Chris Mccracken MD He was put on meropenem-Documented in Discharge summary on 11/20 by Chris Mccracken MD [employer] Crystal [employer] Winform Viewer (This form is maintained as a part of the permanent medical record) 2014 [employer]. All Rights Reserved [email or web address] [not provided] [email or web address]
--- NOTE | 2019-11-23 15:50 | EKG ---
Test Reason : Blood Pressure : / mmHG Vent. Rate : 079 BPM Atrial Rate : 079 BPM P-R Int : 272 ms QRS Dur : 080 ms QT Int : 384 ms P-R-T Axes : 048 032 033 degrees QTc Int : 440 ms Sinus rhythm with sinus arrhythmia with 1st degree A-V block Otherwise normal ECG When compared with ECG of 11-JUL-2019 18:02, Sinus rhythm has replaced Atrial fibrillation Confirmed by DR. Tomas SMITH ([id number]) on 11/23/2019 3:50:07 PM Referred By: WALKER Confirmed By:DR. Tomas SMITH
--- NOTE | 2019-11-29 07:35 | PQF ---
RAUDEL OCASIO SAVAN, MD [id number] ONC-132 [id number] CLINICAL DOCUMENTATION CLARIFICATION FORM: POST DISCHARGE Addendum to original discharge summary date: ____ Late entry note date: __ DATE: 11/29/2019 ATTN:ANJU JACQUES MD Please exercise your independent, professional judgment in responding to the clarification form. Clinical indicators are provided on the bottom of this form for your review Please check appropriate box(s) to clarify if the following diagnosis has been ruled in or ruled out: Sepsis [ ] Ruled in diagnosis [ ] Continue to treat [ ] Resolved [ ] Ruled out diagnosis [ ] Cannot rule out diagnosis [ ] Other diagnosis [ ] Unable to determine For continuity of documentation, please document condition throughout progress notes and discharge summary. Thank You. CLINICAL INDICATORS - SIGNS / SYMPTOMS / LABS [id number] in ED on 11/10 by Mel Haider Sepsis-Documented in ED on 11/10 by Mel Haider Fevers,chills and shakes starting afternoon of the ER admission transfer from [facility] for [facility] evaluation-Documented in H&P on 11/10 by Anju Jacques MD The patient was also noted to be tachycardic and there was concern for sepsis- Documented in H&P on 11/10 by Anju Jacques MD Sepsis of unspecified etiology -Documented in H&P on 11/10 by Anju Jacques MD Pseudomonas urinary tract infection-Documented in Hospitalist progress note on 11/15 by Jovan Jackman Now has pseudomonas growing from the foot culture.This may be superficial growth but has a different sensitivity pattern than the urine cultured pseudomonas, Dr Box changed to meropenem. should cover both -Documented in Hospitalist progress note on 11/15 by Jovan Jackman WBC-13.9-Documented in Laboratory RISK FACTORS Pseudomonas urinary tract infection-Documented in Hospitalist progress note on 11/15 by Jovan Jackman Now has pseudomonas growing from the foot culture-Documented in Hospitalist progress note on 11/15 by Gasper, TREATMENTS In our ER he was administered IV Rocephin-Documented in H&P on 11/10 by Anju Jacques MD Broad-spectrum antibiotics with IV vancomycin and IV Rocephin-Documented in H&P on 11/10 by Anju Jacques MD [employer] Professional Crystal Reports Winform ViewerDavid (This form is maintained as a part of the permanent medical record) 2014 [employer]. All Rights Reserved [email or web address] [phone] [facility]
== END 2019-11-20 18:38 | disposition short-term general hospital (02) | DRG 872 ==
LOC: ERS 01:43 → 2NO 04:30 → ONC 11-11 19:36
PROVIDERS: ADMIT Hospitalist; ATTEND Hospitalist
DX: A41.9 Sepsis, unspecified organism (principal); N12 Tubulo-interstitial nephritis, not specified as acute or chronic; C18.9 Malignant neoplasm of colon, unspecified; Z16.29 Resistance to other single specified antibiotic; M86.8X7 Other osteomyelitis, ankle and foot; E11.69 Type 2 diabetes mellitus with other specified complication; B96.5 Pseudomonas (aeruginosa) (mallei) (pseudomallei) as the cause of diseases classified elsewhere; L97.519 Non-pressure chronic ulcer of other part of right foot with unspecified severity; I48.0 Paroxysmal atrial fibrillation; G47.33 Obstructive sleep apnea (adult) (pediatric); E66.9 Obesity, unspecified; Z68.32 Body mass index [BMI] 32.0-32.9, adult; F41.9 Anxiety disorder, unspecified; F32.9 Major depressive disorder, single episode, unspecified; D63.8 Anemia in other chronic diseases classified elsewhere; I12.9 Hypertensive chronic kidney disease with stage 1 through stage 4 chronic kidney disease, or unspecified chronic kidney disease; E11.22 Type 2 diabetes mellitus with diabetic chronic kidney disease; N18.3 Chronic kidney disease, stage 3 (moderate); E11.40 Type 2 diabetes mellitus with diabetic neuropathy, unspecified; K59.00 Constipation, unspecified; Z90.49 Acquired absence of other specified parts of digestive tract; Z79.01 Long term (current) use of anticoagulants; Z89.421 Acquired absence of other right toe(s); Z98.890 Other specified postprocedural states; Z79.4 Long term (current) use of insulin
CPT/HCPCS: 36415; 36416; 71045; 74176; 80048; 80053; 81001; 82274; 85025; 85046; 85610; 87040; 87070; 87077; 87186; 87205; 93005; 93010; 94799; 96365; 96366; J0692; J0696; J1642; J1815; J2185; J2405; J2543; J3490; Q0162

== ENCOUNTER 2020-01-09 09:40 | Outpatient (CLI) | payer MEDICARE ==
--- NOTE | 2020-01-09 13:41 | CT ---
Chest abdomen and pelvic CT scan with IV contrast: HISTORY: Colon metastasis. COMPARISON: 02/22/2019 FINDINGS: Numerous new pulmonary metastasis most of which are subpleural in location up to approximately 0.5 cm in size. There is one multilobulated poorly defined nodular focus in the right lower lobe measuring 0.7 x 2.2 cm evidence for metastasis. 0.6 cm diameter left-sided anterior mediastinal preva scular lymph node measuring 0.6 cm in size increasing from the prior study. 3 vessel coronary artery calcific disease. No pleural effusion. No pericardial effusion. Multiple poorly defined metastasis within the liver measuring 2.7 cm in the dome of the right lobe co mpared to 1.9 cm, 1.4 cm in the left lobe compared to 0.8 cm. All of these previous noted liver lesions have increased in size. Increase in size in the portal caval node now measuring 1.6 short axis compared to 1.0 cm short axis. There is also increase in size in aortocaval and pericaval nodes measuring 1.4 cm in the aortocaval region where it was present artery 0.8 cm. Right-sided pericaval node now measures 1.8 cm where previous in measure 0.9 cm. Left renal cyst. Postoperative changes in the region of the transverse colon IMPRESSION: Newly developing bilateral pulmonary metastasis mostly subpleural in location. Enlarging multiple liver metastasis. Enlarging retroperitoneal lymph nodes. CODE T
== END 2020-01-09 09:41 | disposition home or self-care (01) ==
LOC: SCSCT 09:40
PROVIDERS: ATTEND Internal Medicine Hematology & Oncology
DX: C18.6 Malignant neoplasm of descending colon (principal); C78.7 Secondary malignant neoplasm of liver and intrahepatic bile duct; C78.01 Secondary malignant neoplasm of right lung; R59.0 Localized enlarged lymph nodes
CPT/HCPCS: 71260; 74177; 82565

== ENCOUNTER 2020-01-30 10:40 | Day surgery (SDC) | payer MEDICARE ==
[2020-01-30] MEDS ORDERED: Sodium Chloride 0.9% 20 ML ONE (10:58)
[2020-01-30] MEDS ORDERED: OXALIPLATIN IVPB SCH (11:00)
[2020-01-30] MEDS ORDERED: DEXTROSE 5% IVPB SCH (11:00)
[2020-01-30] MEDS ORDERED: WATER IVPB SCH (11:00)
[2020-01-30 11:31] VITALS: BP 162/75; TEMP 98
== END 2020-01-30 14:43 | disposition home or self-care (01) ==
LOC: ONC/OP 10:40
PROVIDERS: ATTEND Internal Medicine Hematology & Oncology
DX: Z51.11 Encounter for antineoplastic chemotherapy (principal); C18.6 Malignant neoplasm of descending colon; C78.01 Secondary malignant neoplasm of right lung; C78.7 Secondary malignant neoplasm of liver and intrahepatic bile duct
CPT/HCPCS: 80053; 82248; 82378; 83615; 84100; 84550; 96367; 96375; 96413; 96415; 96417; J0640; J1100; J2469; J7070; J9190; J9263

== ENCOUNTER 2020-02-13 09:02 | Day surgery (SDC) | payer MEDICARE ==
[~2020-02-13 09:02] MED LIST changes: +OXALIPLATIN IVPB SCH
[2020-02-13] MEDS ORDERED: Sodium Chloride 0.9% 20 ML ONE (09:08)
[2020-02-13 10:13] VITALS: BP 130/60; TEMP 98
== END 2020-02-13 12:43 | disposition home or self-care (01) ==
LOC: ONC/OP 09:02
PROVIDERS: ATTEND Internal Medicine Hematology & Oncology
DX: Z51.11 Encounter for antineoplastic chemotherapy (principal); C18.6 Malignant neoplasm of descending colon; C78.01 Secondary malignant neoplasm of right lung; C78.7 Secondary malignant neoplasm of liver and intrahepatic bile duct
CPT/HCPCS: 36415; 80053; 82248; 82378; 83615; 84100; 84550; 96367; 96375; 96413; 96415; 96417; J0640; J1100; J2469; J7070; J9190; J9263

== ENCOUNTER 2020-02-27 09:33 | Day surgery (SDC) | payer MEDICARE ==
[2020-02-27] MEDS ORDERED: Sodium Chloride 0.9% 20 ML ONE (09:39)
[2020-02-27 10:53] VITALS: BP 133/69; TEMP 98.7
== END 2020-02-27 13:35 | disposition home or self-care (01) ==
LOC: ONC/OP 09:33
PROVIDERS: ATTEND Internal Medicine Hematology & Oncology
DX: Z51.11 Encounter for antineoplastic chemotherapy (principal); C18.6 Malignant neoplasm of descending colon; C78.01 Secondary malignant neoplasm of right lung; C78.7 Secondary malignant neoplasm of liver and intrahepatic bile duct
CPT/HCPCS: 80053; 82248; 82378; 83615; 84100; 84550; 96367; 96375; 96413; 96415; 96416; 96417; J0640; J1100; J2469; J7070; J9190; J9263

== ENCOUNTER 2020-03-12 09:19 | Day surgery (SDC) | payer MEDICARE ==
[2020-03-12] MEDS ORDERED: Sodium Chloride 0.9% 20 ML ONE (09:52)
[2020-03-12 10:09] VITALS: BP 196/84; TEMP 98.5
== END 2020-03-12 13:53 | disposition home or self-care (01) ==
LOC: ONC/OP 09:19
PROVIDERS: ATTEND Internal Medicine Hematology & Oncology
DX: Z51.11 Encounter for antineoplastic chemotherapy (principal); C18.6 Malignant neoplasm of descending colon; C78.01 Secondary malignant neoplasm of right lung; C78.7 Secondary malignant neoplasm of liver and intrahepatic bile duct
CPT/HCPCS: 80053; 82248; 82378; 83615; 84100; 84550; 96367; 96375; 96413; 96415; 96417; J0640; J1100; J2469; J7070; J9190; J9263

== ENCOUNTER 2020-04-07 09:48 | Day surgery (SDC) | payer MEDICARE ==
[2020-04-07] MEDS ORDERED: Sodium Chloride 0.9% 20 ML ONE (09:57)
[2020-04-07 11:23] VITALS: BP 152/65; TEMP 97.9
== END 2020-04-07 13:52 | disposition home or self-care (01) ==
LOC: ONC/OP 09:48
PROVIDERS: ATTEND Internal Medicine Hematology & Oncology
DX: Z51.11 Encounter for antineoplastic chemotherapy (principal); C18.6 Malignant neoplasm of descending colon; C78.01 Secondary malignant neoplasm of right lung; C78.7 Secondary malignant neoplasm of liver and intrahepatic bile duct
CPT/HCPCS: 96367; 96413; 96415; 96417; J0640; J1100; J2469; J7070; J9190; J9263

== ENCOUNTER 2020-04-23 12:26 | Day surgery (SDC) | payer MEDICARE ==
[2020-04-23] MEDS ORDERED: Sodium Chloride 0.9% 20 ML ONE (12:28)
[2020-04-23 12:36] VITALS: BP 158/69; TEMP 98
== END 2020-04-23 15:57 | disposition home or self-care (01) ==
LOC: ONC/OP 12:26
PROVIDERS: ATTEND Internal Medicine Hematology & Oncology
DX: Z51.11 Encounter for antineoplastic chemotherapy (principal); C18.6 Malignant neoplasm of descending colon; C78.01 Secondary malignant neoplasm of right lung; C78.7 Secondary malignant neoplasm of liver and intrahepatic bile duct
CPT/HCPCS: 80053; 82248; 82378; 83615; 84100; 84550; 96367; 96375; 96413; 96415; 96416; 96417; J0640; J1100; J2469; J7070; J9190; J9263

== ENCOUNTER 2020-05-21 09:17 | Day surgery (SDC) | payer MEDICARE ==
[2020-05-21] MEDS ORDERED: Sodium Chloride 0.9% 20 ML ONE (09:27)
[2020-05-21 10:34] VITALS: BP 161/77; TEMP 98
== END 2020-05-21 14:57 | disposition home or self-care (01) ==
LOC: ONC/OP 09:17
PROVIDERS: ATTEND Internal Medicine Hematology & Oncology
DX: Z51.11 Encounter for antineoplastic chemotherapy (principal); C18.6 Malignant neoplasm of descending colon; C78.01 Secondary malignant neoplasm of right lung; C78.7 Secondary malignant neoplasm of liver and intrahepatic bile duct
CPT/HCPCS: 80053; 82248; 82378; 83615; 84100; 84550; 96367; 96375; 96413; 96415; 96417; J0640; J1100; J2469; J7070; J9190; J9263

== ENCOUNTER 2020-05-29 09:16 | Outpatient (CLI) | payer MEDICARE ==
--- NOTE | 2020-05-29 12:33 | CT ---
CT CHEST AND ABDOMEN AND PELVIS WITH IV CONTRAST: INDICATION: Malignant neoplasm of descending colon with secondary neoplasm of liver, bile ducts, and lung. FINDINGS: Reduced IV contrast was given because of patient's GFR. A delayed venous phase was performed because of lack of contrast enhancement on the portal venous phase from reduced dose. Comparison is made to CT chest, abdomen, and pelvis 01/09/2020. CT CHEST: There are scattered small bilateral pulmonary nodules which are subcentimeter. These do not appear s ignificantly changed in number or size when compared to 01/09/20. The lungs show no evidence of infiltrate or effusion. Some mild stranding in the lung bases. The mediastinum is unremarkable. Osseous structures unremarkable. Degenerative changes in the spine. IMPRESSION: Scattered bilateral pulmonary nodules appear stable when compared to 01/09/2020. CT ABDOMEN AND PELVIS: Scattered low-density lesions in the liver are again seen. The size and number of these lesions have not significantly changed since 01/09/2020. Spleen and pancreas unremarkable. Kidneys unremarkable. The exophytic cyst from the anterior left kidney is stable. No hydronephrosis . Small and large bowel loops appear unremarkable and unchanged. Aorta normal caliber. The retroperitoneal adenopathy described on the prior stud is again seen and also appears stable. The urinary bladder shows bladder wall thickening. This is also a stable finding. Degenerative benjamin ges at both hips and in the lumbar spine again noted. No lytic or blastic bone lesion. IMPRESSION: CT abdomen and pelvis is stable from 01/09/2020. The liver lesions and retroperitoneal adenopathy lissy w no significant interval change. POS: GIOVANNI
== END 2020-05-29 09:17 | disposition home or self-care (01) ==
LOC: SCSCT 09:16
PROVIDERS: ATTEND Internal Medicine Hematology & Oncology
DX: C78.7 Secondary malignant neoplasm of liver and intrahepatic bile duct (principal); C78.00 Secondary malignant neoplasm of unspecified lung; C18.6 Malignant neoplasm of descending colon; R59.0 Localized enlarged lymph nodes; K76.9 Liver disease, unspecified; R91.8 Other nonspecific abnormal finding of lung field
CPT/HCPCS: 71260; 74177

== ENCOUNTER 2020-06-04 10:12 | Day surgery (SDC) | payer MEDICARE ==
[~2020-06-04 10:12] MED LIST changes: +Atropine Sulfate 0.25 MG in Sodium Chloride 0.9% 50 ML IVPB SCH; +Fluorouracil 900 MG in Sodium Chloride 0.9% 50 ML IVPB SCH; +Irinotecan 350 MG in Sodium Chloride 0.9% 500 ML IVPB SCH; +Leucovorin Calcium 50 MG in Sodium Chloride 0.9% 500 ML IVPB SCH; +Palonosetron HCl 0.25 MG in Sodium Chloride 0.9% 50 ML IVPB SCH
[2020-06-04] MEDS ORDERED: Sodium Chloride 0.9% 20 ML ONE (10:28)
[2020-06-04 10:30] VITALS: BP 137/65; TEMP 98.6
== END 2020-06-04 13:52 | disposition home or self-care (01) ==
LOC: ONC/OP 10:12
PROVIDERS: ATTEND Internal Medicine Hematology & Oncology
DX: Z51.11 Encounter for antineoplastic chemotherapy (principal); C18.6 Malignant neoplasm of descending colon; C78.01 Secondary malignant neoplasm of right lung; C78.7 Secondary malignant neoplasm of liver and intrahepatic bile duct
CPT/HCPCS: 96367; 96375; 96413; 96415; 96417; J0461; J0640; J1100; J2469; J7030; J9190; J9206

== ENCOUNTER 2020-07-09 09:34 | Day surgery (SDC) | payer MEDICARE ==
[~2020-07-09 09:34] MED LIST changes: -DEXAMETHASONE SOD PHOSPHATE IVPB SCH; -DEXTROSE 5% IVPB SCH; -FLUOROURACIL IVPB SCH; -Leucovorin Calcium 50 MG in Dextrose 5% in Water 50 ML IVPB SCH; -OXALIPLATIN IVPB SCH; -Palonosetron HCl 0.25 MG in Dextrose 5% in Water 50 ML IVPB SCH; -WATER IVPB SCH
[2020-07-09] MEDS ORDERED: Sodium Chloride 0.9% 20 ML ONE (09:45)
[2020-07-09 09:51] VITALS: BP 175/77; TEMP 97.9
== END 2020-07-09 13:05 | disposition home or self-care (01) ==
LOC: ONC/OP 09:34
PROVIDERS: ATTEND Internal Medicine Hematology & Oncology
DX: Z51.11 Encounter for antineoplastic chemotherapy (principal); C18.6 Malignant neoplasm of descending colon; C78.01 Secondary malignant neoplasm of right lung; C78.7 Secondary malignant neoplasm of liver and intrahepatic bile duct
CPT/HCPCS: 96367; 96375; 96413; 96417; J0461; J0640; J1100; J2469; J7030; J9190; J9206

== ENCOUNTER 2020-07-23 10:33 | Day surgery (SDC) | payer MEDICARE ==
[2020-07-23 10:47] VITALS: BP 121/77; TEMP 98.1
[2020-07-23] MEDS ORDERED: Sodium Chloride 0.9% 20 ML ONE (10:47)
== END 2020-07-23 14:44 | disposition home or self-care (01) ==
LOC: ONC/OP 10:33
PROVIDERS: ATTEND Internal Medicine Hematology & Oncology
DX: Z51.11 Encounter for antineoplastic chemotherapy (principal); C18.6 Malignant neoplasm of descending colon; C78.01 Secondary malignant neoplasm of right lung; C78.7 Secondary malignant neoplasm of liver and intrahepatic bile duct
CPT/HCPCS: 80053; 82248; 82378; 83615; 84100; 84550; 96367; 96375; 96413; 96415; 96417; J0461; J0640; J1100; J2469; J7030; J9190; J9206

== ENCOUNTER → 2020-08-06 | Day surgery (SDC) | payer MEDICARE ==
[~2020-08-06] MED LIST changes: -Atropine Sulfate 0.25 MG in Sodium Chloride 0.9% 50 ML IVPB SCH; -Irinotecan 350 MG in Sodium Chloride 0.9% 500 ML IVPB SCH; +Sodium Chloride 0.9% 20 ML ONE
[2020-08-06 10:52] VITALS: BP 134/67; TEMP 98
== END ==
LOC: ONC/OP 10:33
PROVIDERS: ATTEND Internal Medicine Hematology & Oncology
DX: Z51.11 Encounter for antineoplastic chemotherapy (principal); C18.6 Malignant neoplasm of descending colon; C78.7 Secondary malignant neoplasm of liver and intrahepatic bile duct; C78.01 Secondary malignant neoplasm of right lung
CPT/HCPCS: 96367; 96375; 96413; J0640; J1100; J2469; J7030; J9190

== ENCOUNTER 2020-08-20 10:40 | Day surgery (SDC) | payer MEDICARE ==
[~2020-08-20 10:40] MED LIST changes: +Atropine Sulfate 0.25 MG in Sodium Chloride 0.9% 50 ML IVPB SCH; +IRINOTECAN IVPB SCH; +SODIUM CHLORIDE 0.9% IVPB SCH; -Sodium Chloride 0.9% 20 ML ONE
[2020-08-20] MEDS ORDERED: Sodium Chloride 0.9% 20 ML ONE (10:43)
[2020-08-20 10:53] VITALS: BP 173/79; TEMP 98.5
[2020-08-20] MEDS ORDERED: Famotidine/PF 20 mg/2ml Vial SLOW IVP SCH (14:15)
== END 2020-08-20 14:53 | disposition home or self-care (01) ==
LOC: ONC/OP 10:40
PROVIDERS: ATTEND Internal Medicine Hematology & Oncology
DX: Z51.11 Encounter for antineoplastic chemotherapy (principal); C18.6 Malignant neoplasm of descending colon; C78.01 Secondary malignant neoplasm of right lung; C78.7 Secondary malignant neoplasm of liver and intrahepatic bile duct
CPT/HCPCS: 36415; 80053; 82248; 82378; 83615; 84100; 84550; 96367; 96375; 96413; 96415; 96417; J0461; J0640; J1100; J2469; J7030; J9190; J9206

== ENCOUNTER 2020-09-03 11:02 | Day surgery (SDC) | payer MEDICARE ==
[2020-09-03] MEDS ORDERED: Sodium Chloride 0.9% 20 ML ONE (11:05)
[2020-09-03 11:46] VITALS: BP 136/77; TEMP 98.5
== END 2020-09-03 15:34 | disposition home or self-care (01) ==
LOC: ONC/OP 11:02
PROVIDERS: ATTEND Internal Medicine Hematology & Oncology
DX: Z51.11 Encounter for antineoplastic chemotherapy (principal); C18.6 Malignant neoplasm of descending colon; C78.01 Secondary malignant neoplasm of right lung; C78.7 Secondary malignant neoplasm of liver and intrahepatic bile duct
CPT/HCPCS: 96367; 96375; 96413; 96417; J0461; J0640; J1100; J2469; J7030; J9190; J9206

== ENCOUNTER 2020-09-17 09:59 | Day surgery (SDC) | payer MEDICARE ==
[2020-09-17] MEDS ORDERED: Sodium Chloride 0.9% 20 ML ONE (10:08)
[2020-09-17 10:35] VITALS: BP 152/67; TEMP 98.8
== END 2020-09-17 13:27 | disposition home or self-care (01) ==
LOC: ONC/OP 09:59
PROVIDERS: ATTEND Internal Medicine Hematology & Oncology
DX: Z51.11 Encounter for antineoplastic chemotherapy (principal); C18.6 Malignant neoplasm of descending colon; C78.7 Secondary malignant neoplasm of liver and intrahepatic bile duct; C78.01 Secondary malignant neoplasm of right lung
CPT/HCPCS: 36415; 80053; 82248; 82378; 83615; 84100; 84550; 96367; 96375; 96413; 96415; 96416; 96417; J0461; J0640; J1100; J2469; J7030; J9190; J9206

== ENCOUNTER 2020-10-01 10:54 | Day surgery (SDC) | payer MEDICARE ==
[~2020-10-01 10:54] MED LIST changes: +PALONOSETRON HCL 0.05 MG/ML 5 ML VIAL IVP SCH
[2020-10-01] MEDS ORDERED: Sodium Chloride 0.9% 20 ML ONE (11:06)
[2020-10-01 11:35] VITALS: BP 111/58; TEMP 98.9
== END 2020-10-01 14:22 | disposition home or self-care (01) ==
LOC: ONC/OP 10:54
PROVIDERS: ATTEND Internal Medicine Hematology & Oncology
DX: Z51.11 Encounter for antineoplastic chemotherapy (principal); C18.6 Malignant neoplasm of descending colon; C78.01 Secondary malignant neoplasm of right lung; C78.7 Secondary malignant neoplasm of liver and intrahepatic bile duct
CPT/HCPCS: 96367; 96375; 96413; 96415; 96416; 96417; J0461; J0640; J1100; J2469; J7030; J9190; J9206

== ENCOUNTER 2020-10-15 10:39 | Day surgery (SDC) | payer MEDICARE ==
[2020-10-15] MEDS ORDERED: Sodium Chloride 0.9% 20 ML ONE (11:22)
== END 2020-10-15 15:26 | disposition home or self-care (01) ==
LOC: ONC/OP 10:39
PROVIDERS: ATTEND Internal Medicine Hematology & Oncology
DX: Z51.11 Encounter for antineoplastic chemotherapy (principal); C18.6 Malignant neoplasm of descending colon; C78.01 Secondary malignant neoplasm of right lung; C78.7 Secondary malignant neoplasm of liver and intrahepatic bile duct
CPT/HCPCS: 36415; 36416; 80053; 82248; 82378; 83615; 84100; 84550; 96367; 96375; 96413; 96415; 96416; 96417; J0461; J0640; J1100; J2469; J7030; J9190; J9206

== ENCOUNTER 2020-10-28 09:21 | Day surgery (SDC) | payer MEDICARE ==
[2020-10-28] MEDS ORDERED: IRINOTECAN IVPB SCH (09:30)
[2020-10-28] MEDS ORDERED: Atropine Sulfate 0.25 MG in Sodium Chloride 0.9% 50 ML IVPB SCH (09:30)
[2020-10-28] MEDS ORDERED: Leucovorin Calcium 50 MG in Sodium Chloride 0.9% 500 ML IVPB SCH (09:30)
[2020-10-28] MEDS ORDERED: SODIUM CHLORIDE 0.9% IVPB SCH (09:30)
[2020-10-28] MEDS ORDERED: Sodium Chloride 0.9% 20 ML ONE ×2 (09:30→09:58)
[2020-10-28] MEDS ORDERED: PALONOSETRON HCL 0.05 MG/ML 5 ML VIAL IVP SCH (09:30)
[2020-10-28] MEDS ORDERED: Fluorouracil 900 MG in Sodium Chloride 0.9% 50 ML IVPB SCH (09:45)
[2020-10-28 11:34] VITALS: BP 134/64; TEMP 98
== END 2020-10-28 15:49 | disposition home or self-care (01) ==
LOC: ONC/OP 09:21
PROVIDERS: ATTEND Internal Medicine Hematology & Oncology
DX: Z51.11 Encounter for antineoplastic chemotherapy (principal); C18.6 Malignant neoplasm of descending colon; C78.01 Secondary malignant neoplasm of right lung; C78.7 Secondary malignant neoplasm of liver and intrahepatic bile duct
CPT/HCPCS: 96367; 96375; 96413; 96415; 96416; 96417; J0461; J0640; J1100; J2469; J7030; J9190; J9206

== ENCOUNTER 2020-11-12 11:33 | Day surgery (SDC) | payer MEDICARE ==
[2020-11-12] MEDS ORDERED: Sodium Chloride 0.9% 20 ML ONE (11:41)
[2020-11-12] MEDS ORDERED: Sodium Chloride 0.9% 500 ML IVPB SCH (12:00)
[2020-11-12 12:16] VITALS: BP 155/90
[2020-11-12] MEDS ORDERED: Diphenoxylate HCl/Atropine Tablet PO SCH (12:45)
== END 2020-11-12 15:27 | disposition home or self-care (01) ==
LOC: ONC/OP 11:33
PROVIDERS: ATTEND Internal Medicine Hematology & Oncology
DX: Z51.11 Encounter for antineoplastic chemotherapy (principal); C18.6 Malignant neoplasm of descending colon; C78.01 Secondary malignant neoplasm of right lung; C78.7 Secondary malignant neoplasm of liver and intrahepatic bile duct
CPT/HCPCS: 36415; 80053; 82248; 82378; 83615; 84100; 84550; 96361; 96367; 96375; 96413; 96415; 96416; 96417; J0461; J0640; J1100; J2469; J7030; J9190; J9206

== ENCOUNTER 2020-11-19 13:00 | Observation (INO) | payer MEDICARE ==
[2020-11-19 17:33] VITALS: BMI 27.9
[2020-11-19] MEDS: Nitroglycerin 2% Ointment 1 INCH/1 GM Packet TOP SCH ×2 (18:31→23:23)
[2020-11-19] MEDS ORDERED: Diphenoxylate HCl/Atropine Tablet PO PRN (18:52)
[2020-11-19] MEDS ORDERED: Ondansetron ODT 4 MG TAB PO PRN (18:52)
[2020-11-19] MEDS ORDERED: Acetaminophen 325 MG TAB PO PRN (18:53)
[2020-11-19] MEDS ORDERED: Prochlorperazine Maleate 5 MG TAB PO PRN (18:59)
[2020-11-19] MEDS ORDERED: Magnesium Citrate 300 ML BOT PO SCH (19:00)
--- NOTE | 2020-11-19 19:05 | PDOC.HHP ---
Hospitalist HPI - History of Present Illness Chest pain History of Present Illness: This patient is a 70-year-old male who transferred from [facility] emergency department. Patient was in the emergency department with his who is having some GI symptoms. While he was in the waiting room he was slumped a bit taking a nap. He awoke with some pain in his left upper lateral chest area. He waited about 30 minutes and when it did not resolve he reported and checked himself into the ER. Says the pain spontaneously resolved and another 30 minutes being present for total of an hour. He reported the pain was dull in nature and was increased with deep respirations. It was aching. At worst it was a 7 out of 10. Since it has resolved he has had 3 or 4 recurrences that only last a minute or 2 and are not nearly as bad. He denies any associated shortness of breath or nausea or lightheadedness. No radiation. He does report that he has seen Dr. Bernard in the past. He has a history of atrial fibrillation with ablation x2. He does not believe he has any coronary artery disease although he has had stress test and echocardiograms in the past with Dr. Bernard. ED Course: In the emergency department in [place] the patient had negative troponins. His EKG showed first-degree AV block with no acute findings. He was also noted to be severely hyperglycemic with a blood sugar around 600 and pseudohyponatremia with a sodium around 128. There his blood sugar did improve and his sodium level improved with it. When asked about it the patient reported he does not recall taking any of his insulin yesterday. Hospitalist ROS - Review of Systems Constitutional: denies: fever, chills Respiratory: denies: cough, shortness of breath Cardiovascular: denies: chest pain, palpitations, orthopnea Gastrointestinal: reports: diarrhea (Due to chemotherapy). denies: nausea, vomiting, abdominal pain, constipation Skin: reports: other (Ports dry foreskin with a fissure. Denies phimosis). denies: rash Neurological: denies: weakness, numbness - Medication Medications: Active Medications Generic Name Dose Route Start Last Admin Trade Name Freq PRN Reason Stop Dose Admin Nitroglycerin 1 inch 11/19/20 18:00 11/19/20 18:31 Nitroglycerin 2% Ointment 1 Inch/1 Gm Packet TOP 11/20/20 01:25 1 inch Q6HR ANDREA Administration Levemir 40 units subcu twice daily Gabapentin 300 mg 2 p.o. 3 times daily Metoprolol 50 mg p.o. daily Flecainide 100 mg daily Zofran as needed Xarelto 20 mg p.o. daily Mag citrate 150 mils daily. Amlodipine 10 mg p.o. 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 At that time the patient underwent partial colectomy as well as wedge resection of liver metastases. He was clear of cancer but had a recurrence in 2018. He is now followed by Dr. Huff at the cancer center.). denies: Sickle cell disease Psych: reports: Anxiety, Depression Musculoskeletal: reports: Osteoarthritis Endocrine: reports: Diabetes - Past Surgical History Past Surgical History: reports: Other (Atrial fibrillation ablation, mediport, partial colectomy, wedge resection of liver metastases.) - Family History Family History: reports: no pertinent history (Patient is adopted) - Social History Smoking Status: Never smoker Alcohol: reports: None Drugs: reports: none Living Situation: With Family Other Social History: Patient is . His would be his surrogate decision maker should that be necessary. He is full code although he requests that it be limited. - Exam General Appearance: NAD, awake alert Neck: supple, symmetric, no JVD, no thyromegaly, no lymphadenopathy, no carotid bruit Heart: RRR, no murmur, no gallops, no rubs, normal peripheral pulses Respiratory: CTAB, no wheezes, no rales, no ronchi, normal chest expansion, no tachypnea, normal percussion Gastrointestinal: soft, non-tender, non-distended, normal bowel sounds, no palpable masses, no hepatomegaly, no splenomegaly, no bruit Extremities: no cyanosis, no clubbing, no edema Extremities - other findings: Right fourth and fifth toe amputation Skin: normal turgor, no lesions, no rashes Neurological: cranial nerve grossly intact, normal sensation to touch, no weakness, no focal deficits, no new deficit Musculoskeletal: normal tone, normal strength, no muscle wasting Psychiatric: normal affect, normal behavior, A&O x 3 Hospitalist Results - Labs Lab results: Troponin negative x3 Hospitalist H&P A/P - Problem (1) Chest pain Code(s): R07.9 - CHEST PAIN, UNSPECIFIED Status: Acute (2) Colon cancer Code(s): C18.9 - MALIGNANT NEOPLASM OF COLON, UNSPECIFIED Status: Acute (3) Atrial fibrillation Code(s): I48.91 - UNSPECIFIED ATRIAL FIBRILLATION Status: Chronic Qualifiers: (4) CKD (chronic kidney disease) stage 3, GFR 30-59 ml/min Code(s): N18.3 - CHRONIC KIDNEY DISEASE, STAGE 3 (MODERATE) * DO NOT USE * Status: Chronic (5) Chronic anticoagulation Code(s): Z79.01 - ASSISTED (CURRENT) USE OF ANTICOAGULANTS Status: Chronic (6) Diabetes mellitus type 2, insulin dependent Code(s): E11.9 - TYPE 2 DIABETES MELLITUS WITHOUT COMPLICATIONS; Z79.4 - ANTHROPOLOGY AND ARCHEOLOGY INSTRUCTOR (CURRENT) USE OF INSULIN Status: Chronic (7) ESE (obstructive sleep apnea) Code(s): G47.33 - OBSTRUCTIVE SLEEP APNEA (ADULT) (PEDIATRIC) Status: Chronic (8) Dehydration Code(s): E86.0 - DEHYDRATION Status: Acute - Plan Plan: Chest pain: Patient has atypical type chest pain. His troponins have been negative x3. His EKG findings were unremarkable. Anticipated likely obtaining a stress test on this patient but it sounds like he has had a work-up with Dr. Bernard in the past. Suggest a conversation with Dr. Bernard before determining any further aggressive work-up. Continue with telemetry. Patient received aspirin at the other facility along with nitro paste. Dehydration: Patient appears to be clinically dehydrated. He reports he has been having some increased diarrhea lately due to his chemotherapy regimen. We will gently hydrate. Colon cancer: Stable. Outpatient follow-up with Dr. Huff. Hyperglycemia: Patient had significant hyperglycemia with pseudohyponatremia at the emergency department. These improved with his insulin. Continue with his home regimen. CKD stage III: Stable.
[2020-11-19] MEDS: Gabapentin 300 MG CAP PO SCH (20:31)
[2020-11-19] MEDS: Sodium Chloride 0.9% 1,000 ML IV SCH (20:34)
[2020-11-19] MEDS: Insulin Glargine 40 UNITS in Pre-Filled Syringe 1 EACH SC SCH (20:52)
[2020-11-19] MEDS ORDERED: Famotidine 20 MG TAB PO SCH (21:00)
[2020-11-19] MEDS ORDERED: Non-Formulary Item 1 EACH (Insulin Detemir [Levemir] 100 UNIT/ML Vial) SC SCH (21:00)
[2020-11-20 04:27] LABS: #Eosinphils 0.2 thou/uL (0.0-0.7); #Lymphocytes 1.7 thou/uL (1.20-3.40); #Monocytes 0.5 thou/uL (0.11-0.59); #Neutrophils 2.5 thou/uL (1.40-6.50); %Eosinophils 3.8 % (0.0-10.0); %Lymphocytes 34.6 % (21.0-51.0); %Monocytes 10.2 % (0.0-10.0); %Neutrophils 50.5 % (42.0-75.0); Hemoglobin 9.9 g/dL (14.0-18.0); Mean Corpuscular HGB CONC 33.9 g/dL (32.0-36.0); Mean Corpuscular Hemoglobin 32.5 pg (27.0-31.0); Mean Corpuscular Volume 95.9 fL (78.0-98.0); Mean Platelet Volume 7.4 fL (7.4-10.4); Platelet Count 183 thou/uL (130-400); RBC Distribution Width 13.1 % (11.5-14.5); Red Blood Cell (RBC) Count 3.05 mill/uL (4.70-6.10); White Blood Cell (WBC) Count 4.9 thou/uL (4.8-10.8)
[2020-11-20 04:44] LABS: Anion Gap 13 mmol/L (10-20); BUN (Urea Nitrogen) 19 mg/dL (8.4-25.7); Calc. Creatinine Clearance 59 mL/min (70-130); Calcium 8.7 mg/dL (7.8-10.44); Carbon Dioxide 21 mmol/L (23-31); Chloride 102 mmol/L (98-107); Glucose 255 mg/dL (83-110); Potassium 3.9 mmol/L (3.5-5.1); Sodium 132 mmol/L (136-145)
[2020-11-20] MEDS: Sodium Chloride 0.9% 1,000 ML IV SCH (07:45)
[2020-11-20] MEDS ORDERED: Amlodipine 10 MG TAB PO SCH (09:00)
[2020-11-20] MEDS ORDERED: Flecainide 50 MG TAB PO SCH (09:00)
[2020-11-20] MEDS ORDERED: Metoprolol Tartrate 25 MG TAB PO SCH (09:00)
[2020-11-20] MEDS ORDERED: FLU VACC QS2020-21(65YR UP)/PF 240 MCG/0.7 ML SYRINGE IM ONE (09:00)
[2020-11-20] MEDS ORDERED: Rivaroxaban 15 MG TAB PO SCH (09:00)
[2020-11-20] MEDS: HumuLIN 70/30 (300 UNITS/3 ML VIAL) SC SCH ×3 (09:18→17:30)
[2020-11-20] MEDS: Gabapentin 300 MG CAP PO SCH ×2 (10:11→15:23)
[2020-11-20] MEDS ORDERED: Regadenoson 0.4 MG/5 ML SYRINGE ONE (12:54)
[2020-11-20 13:47] LABS: SARS-CoV-2 PCR by NAA Not Detected (NotDetected)
[2020-11-20 14:13] VITALS: TEMP 97.8
[2020-11-20] MEDS: Insulin Glargine 40 UNITS in Pre-Filled Syringe 1 EACH SC SCH (14:16)
--- NOTE | 2020-11-20 16:06 | NM ---
Exam: Nuclear medicine cardiac stress with EF and wall motion HISTORY: Chest pain. TECHNIQUE: Patient was administered 9 mCi of technetium 99m sestamibi for rest imaging and 30 mCi of technetium 99m sestamibi for stress imaging. Cardiac gating is performed. FINDINGS: Homogeneous distribution of the radiotracer in the left ventricle. No reversibility or fixed defect. TID: 0.95 End-diastolic volume: 82 mL End-systolic volume: 37 mL Cardiac gating and wall motion: Normal thickening. 54% ejection fraction. IMPRESSION: 1. Homogeneous distribution of the radiotracer in the left ventricle. 2. 54% ejection fraction. Transcribed Date/Time: 11/20/2020 4:30 PM
--- NOTE | 2020-11-20 16:18 | PDOC.DS.DS ---
Provider - Provider Date of Admission: 11/19/20 13:00 Date of Discharge: 11/20/20 Admitting Provider: Jovan Jackman MD Primary Care Physician: [facility] Course - Hospital Course Hospital Course: Discharge diagnosis: 1. Chest pain 2. Chest pain most likely secondary to musculoskeletal etiology 3. Hyponatremia 4. COVID-19 test negative Hospital course: Patient is a pleasant 70-year-old gentleman who was admitted to the hospital on November 19, 2020 for chest pain. He underwent nuclear stress test, which showed homogeneous distribution of the radiotracer in the left ventricle and 54% left ventricular ejection fraction. His chest pain resolved, and patient is being discharged home in stable condition. No change was made just admission home medications. Many thanks for allowing me to participate in your patient's care. Please feel free to contact me with any questions or concerns. Discharge destination: Home Resuscitation Status: 11/19/20 18:53 Resuscitation Status Routine Resuscitation Status: FULL: Full Resuscitation - Labs Lab Results: 11/20/20 04:10 11/20/20 04:10 Abnormal Lab Results - Last 48 hrs 11/20/20 04:10: Sodium 132 L, Carbon Dioxide 21 L, Creatinine 1.44 H 11/20/20 04:10: RBC 3.05 L, Hgb 9.9 L, Hct 29.2 L, MCH 32.5 H, Monocytes % 10.2 H - Physical Exam Vitals: Vital Signs (12 hours) Temp Pulse Resp BP BP Pulse Ox 11/20/20 14:12 97.8 F 69 18 108/58 L 100 11/20/20 10:12 87 139/79 11/20/20 07:40 97.9 F 62 18 108/57 L 98 Weight Weight 197 lb 8.547 oz Physical Exam: The patient was seen and examined on the day of discharge. Patient denies chest pain or shortness of breath. Vital signs are stable. S1 and S2 are heard. Lungs are clear to auscultation bilaterally. Plan - Discharge Medications Home Medications: Medication Instructions Recorded Confirmed Type Ondansetron [Zofran ODT] 4 mg PO Q6H PRN tab 11/20/19 11/19/20 Rx Amlodipine [Norvasc] 10 mg PO DAILY 11/19/20 11/19/20 History Diphenoxylate HCl/Atropine 2 tab PO QID PRN 11/19/20 11/19/20 History [Lomotil] Flecainide [Tambocor] 100 mg PO DAILY 11/19/20 11/19/20 History Gabapentin [Neurontin] 300 mg PO TID 11/19/20 11/19/20 History Insulin Detemir [Levemir] 40 unit SQ BID 11/19/20 11/19/20 History Insulin Glargine [Lantus Vial] 20 units SC TID 11/19/20 11/19/20 History Magnesium Citrate [Citrate of 150 ml PO ONE 11/19/20 11/19/20 History Magnesia] Metoprolol Tartrate [Lopressor] 50 mg PO DAILY 11/19/20 11/19/20 History Prochlorperazine Maleate 10 mg PO Q6HR PRN 11/19/20 11/19/20 History [Compazine] Rivaroxaban [Xarelto] 15 mg PO DAILY 11/19/20 11/19/20 History Allergies: No Known Allergies Allergy (Verified 01/22/20 04:29) - Follow up Plan Referrals: [facility] [Primary Care Provider] - 3 Days Disposition: HOME Quality - Care Measures CORE MEASURES:: N/A
[2020-11-20 17:10] VITALS: BP 124/71
--- NOTE | 2020-11-20 17:24 | CON ---
DATE OF CONSULTATION: 11/20/2020 INDICATION FOR CONSULTATION: A 70-year-old gentleman with atypical chest pain, who presented to the emergency room with his in [facility]. He took her to the emergency room due to her pain and while he was sitting there, he slumped over and was probably taking a nap and then when he awoke, he was noticed he has some left chest pain. He said it was 7/10. He did not have any EKG changes and enzymes were negative, but he was transferred to our facility for further evaluation. He has had a history of atrial fibrillation in the past, but remains in sinus rhythm at this time. He has undergone ablation x2 and he has not had any significant known coronary artery disease in the past. His last echocardiogram did not show any significant abnormalities. His last ablation for flutter was in October of 2017. Otherwise, his cardiac status has remained relatively stable. Since being here, he has had no further episodes of chest discomfort. His enzymes still remain negative. EKG did not show any evidence of ischemia. He had a stress test today, which also showed no evidence of ischemia. PAST MEDICAL HISTORY: Significant for atrial flutter or atrial tachycardia. He has undergone ablations in the past. He has a history of type 2 diabetes, hypertension, dyslipidemia, osteoarthritis, depression with anxiety. He had stage IV colon cancer in the past, he has undergone resection. He has had sleep apnea, dislocated left hip, history of shingles. He has had bilateral knee arthroscopic evaluations. He has had cardioversions. ALLERGIES: HE HAS NO KNOWN DRUG ALLERGIES. MEDICATIONS: Include; 1. Levemir. 2. Gabapentin. 3. Metoprolol. 4. Flecainide. 5. Zofran. 6. Xarelto. 7. Magnesium citrate. 8. Amlodipine. 9. Compazine. 10. Lomotil as needed. 11. NovoLog 70/30, which he takes himself. REVIEW OF SYSTEMS: Unremarkable excepted as noted in history of present illness. FAMILY HISTORY: Noncontributory. SOCIAL HISTORY: He still lives at home with his . He has no history of alcohol or tobacco abuse. PHYSICAL EXAMINATION: GENERAL: Reveals a well-developed, well-nourished gentleman, who is in no acute distress. VITAL SIGNS: Blood pressure 108/58, heart rate is 68 and regular, respiratory rate is 18. He is afebrile. HEENT: Unremarkable. CHEST: Clear to auscultation. CARDIOVASCULAR: Reveals regular rate and rhythm. No gross murmurs are appreciated. ABDOMEN: Soft and nontender. Positive bowel sounds are present. EXTREMITIES: Show no clubbing, cyanosis, or edema. Pedal pulses are present, but slightly decreased. NEUROLOGIC: He appears to be fully intact. LABORATORY DATA: Show a WBC of 4.9, hemoglobin 9.9, platelet count was 183,000. Sodium was 132, potassium 3.9, BUN was 19, creatinine 1.44, blood sugar was 255. Please note that on his admission when he was first checked, his blood sugars were over 600 I believe, that apparently his blood sugar has been poorly controlled. EKG does not show any acute evidence of ischemia. He has what appears to be a sinus rhythm, perhaps some atrial tachycardia, but otherwise unremarkable EKG for any evidence of ischemia. IMPRESSION: 1. A 70-year-old gentleman with atypical chest pain. He has had a negative workup. Enzymes are negative. EKG is negative. Stress test is negative. He can be discharged to home. He can follow up in the clinic. He has actually not been seen in our clinic since 2018, but we would more than happy to see him in followup in the clinic. 2. History of type 2 diabetes, which has been poorly controlled, this will be dealt with by the primary care service. 3. Anemia of uncertain etiology. He has had history of colon cancer in the past. I do not know when his most recent workup was performed. He also has atrial fibrillation or at times atrial flutter with atrial tachycardia, but the ventricular response is under good control at this time and he will continue on the same medications. He can follow up with the informatics spec as per their directions. 4. History of chronic kidney disease. His creatinine was 1.44, but otherwise has remained stable. 5. Obstructive sleep apnea, which will be dealt with also by another service. At this time from a cardiac standpoint, he can be discharged to home. Unfortunately, he said his car is in [place] and his is in the hospital. He did not have any frontload driver's license or cellphone with him when he took her to the hospital and he is trying to find some way of trying to get back to [place] at this time if he is discharged. From my perspective, he can be discharged and can follow up as an outpatient. Job ID: [id number]
== END 2020-11-20 19:00 | disposition home or self-care (01) ==
LOC: 2NO 13:00
PROVIDERS: ADMIT Internal Medicine; ATTEND Internal Medicine
DX: R07.89 Other chest pain (principal); E87.1 Hypo-osmolality and hyponatremia; I12.9 Hypertensive chronic kidney disease with stage 1 through stage 4 chronic kidney disease, or unspecified chronic kidney disease; E11.22 Type 2 diabetes mellitus with diabetic chronic kidney disease; N18.30 Chronic kidney disease, stage 3 unspecified; D63.1 Anemia in chronic kidney disease; G25.81 Restless legs syndrome; F41.9 Anxiety disorder, unspecified; F32.9 Major depressive disorder, single episode, unspecified; M19.90 Unspecified osteoarthritis, unspecified site; I48.20 Chronic atrial fibrillation, unspecified; C18.9 Malignant neoplasm of colon, unspecified; G47.33 Obstructive sleep apnea (adult) (pediatric); E86.0 Dehydration; E11.65 Type 2 diabetes mellitus with hyperglycemia; Z23 Encounter for immunization; Z79.01 Long term (current) use of anticoagulants; Z79.4 Long term (current) use of insulin; Z79.899 Other long term (current) drug therapy; Z90.49 Acquired absence of other specified parts of digestive tract; Z20.822 Contact with and (suspected) exposure to COVID-19
CPT/HCPCS: 78452; 80048; 82962 ×2; 85025; 90662; 93017; A9500; G0008; U0003; U0005; 36415; 36416; 87635; 90471; G0378; J1815; J2785

== ENCOUNTER 2020-11-26 11:19 | Day surgery (SDC) | payer MEDICARE ==
[2020-11-26] MEDS ORDERED: Sodium Chloride 0.9% 20 ML ONE (11:39)
[2020-11-26 11:58] VITALS: BP 111/60
[2020-11-26] MEDS ORDERED: Diphenoxylate HCl/Atropine Tablet PO SCH (14:00)
== END 2020-11-26 16:16 | disposition home or self-care (01) ==
LOC: ONC/OP 11:19
PROVIDERS: ATTEND Internal Medicine Hematology & Oncology
DX: Z51.11 Encounter for antineoplastic chemotherapy (principal); C18.6 Malignant neoplasm of descending colon; C78.01 Secondary malignant neoplasm of right lung; C78.7 Secondary malignant neoplasm of liver and intrahepatic bile duct
CPT/HCPCS: 36415; 80053; 82248; 82378; 83615; 84100; 84550; 96367; 96375; 96413; 96415; 96416; 96417; J0461; J0640; J1100; J2469; J7030; J9190; J9206

== ENCOUNTER 2020-12-24 12:49 | Day surgery (SDC) | payer MEDICARE ==
[~2020-12-24 12:49] MED LIST changes: -Palonosetron HCl 0.25 MG in Sodium Chloride 0.9% 50 ML IVPB SCH
[2020-12-24 14:13] VITALS: BP 122/57; TEMP 98.3
== END 2020-12-24 16:42 | disposition home or self-care (01) ==
LOC: ONC/OP 12:49
PROVIDERS: ATTEND Internal Medicine Hematology & Oncology
DX: Z51.11 Encounter for antineoplastic chemotherapy (principal); C18.6 Malignant neoplasm of descending colon; C78.01 Secondary malignant neoplasm of right lung; C78.7 Secondary malignant neoplasm of liver and intrahepatic bile duct
CPT/HCPCS: 36415; 80053; 82248; 82378; 83615; 84100; 84550; 96367; 96375; 96413; 96415; 96416; 96417; J0461; J0640; J1100; J2469; J7030; J9190; J9206

== ENCOUNTER 2021-01-07 11:35 | Day surgery (SDC) | payer MEDICARE ==
[~2021-01-07 11:35] MED LIST changes: -Leucovorin Calcium 50 MG in Sodium Chloride 0.9% 500 ML IVPB SCH; +Palonosetron HCl 0.25 MG in Sodium Chloride 0.9% 50 ML IVPB SCH
[2021-01-07] MEDS ORDERED: Sodium Chloride 0.9% 20 ML ONE (11:38)
[2021-01-07 11:47] VITALS: BP 161/74; TEMP 97.9
== END 2021-01-07 15:10 | disposition home or self-care (01) ==
LOC: ONC/OP 11:35
PROVIDERS: ATTEND Internal Medicine Hematology & Oncology
DX: Z51.11 Encounter for antineoplastic chemotherapy (principal); C18.6 Malignant neoplasm of descending colon; C78.01 Secondary malignant neoplasm of right lung; C78.7 Secondary malignant neoplasm of liver and intrahepatic bile duct
CPT/HCPCS: 36415; 80053; 82248; 82378; 83615; 84100; 84550; 96367; 96375; 96413; 96415; 96416; 96417; J0461; J0640; J1100; J2469; J7030; J9190; J9206

== ENCOUNTER 2021-01-21 12:40 | Day surgery (SDC) | payer MEDICARE | END 2021-01-21 15:14 | disposition home or self-care (01) | LOC: ONC/OP 12:40 | PROVIDERS: ATTEND Internal Medicine Hematology & Oncology | DX: Z51.11 Encounter for antineoplastic chemotherapy (principal); C18.6 Malignant neoplasm of descending colon; C78.01 Secondary malignant neoplasm of right lung; C78.7 Secondary malignant neoplasm of liver and intrahepatic bile duct | CPT/HCPCS: 36415; 80053; 82248; 82378; 83615; 84100; 84550; 96367; 96375; 96413; 96415; 96416; 96417; J0461; J0640; J1100; J2469; J7030; J9190; J9206 ==

== ENCOUNTER 2021-01-23 15:53 | Outpatient (CLI) | payer MEDICARE ==
[2021-01-23 18:05] LABS: Hemoglobin 7.2 g/dL (13.5-17.5); Mean Corpuscular Hemoglobin 32.9 pg (27.0-33.0); Mean Corpuscular Volume 94.1 fl (81.2-95.1); Mean Platelet Volume 10.2 fl (7.4-10.4); Platelet Count 200 10x3/uL (150-450); RBC Distribution Width 14.1 % (11.5-14.5); Red Blood Cell (RBC) Count 2.19 10x6/uL (4.32-5.72)
[2021-01-23 18:16] LABS: Anion Gap 18 mmol/L (10-20); BUN (Urea Nitrogen) 28 mg/dL (8.4-25.7); Calc. Creatinine Clearance 0 mL/min (70-130); Calcium 8.5 mg/dL (7.8-10.44); Carbon Dioxide 28 mmol/L (23-31); Chloride 95 mmol/L (98-107); Glucose 240 mg/dL (83-110); Potassium 3.7 mmol/L (3.5-5.1); Sodium 137 mmol/L (136-145)
[2021-01-23 18:21] LABS: INR-International Normal Ratio 1.2; PTT 29.4 sec (22.0-33.0); Prothrombin Time 12.4 sec (9.5-12.1)
[2021-01-24 02:53] LABS: SARS-CoV-2 PCR by NAA Not Detected (NotDetected)
== END 2021-01-23 15:54 | disposition home or self-care (01) ==
LOC: LABBT 15:53
PROVIDERS: ATTEND Internal Medicine Cardiovascular Disease
DX: Z01.818 Encounter for other preprocedural examination (principal); I48.91 Unspecified atrial fibrillation; Z20.822 Contact with and (suspected) exposure to COVID-19
CPT/HCPCS: 80048; 85027; 85610; 85730; U0003; U0005; 87635; 93005; 93010

== ENCOUNTER 2021-01-28 08:57 | Day surgery (SDC) | payer MEDICARE ==
[2021-01-26 15:12] VITALS: BMI 27.5
[2021-01-28] MEDS ORDERED: PROPOFOL 40 ML ONE (10:34)
[2021-01-28] MEDS ORDERED: Hydrocortisone 1% Cream 30 GM TUBE ONE (12:21)
== END 2021-01-28 12:38 | disposition home or self-care (01) ==
LOC: CCL 08:57
PROVIDERS: ATTEND Internal Medicine Cardiovascular Disease
PROC: 5A2204Z Restoration of Cardiac Rhythm, Single (ICD-10-PCS; principal; 2021-01-28)
DX: I48.19 Other persistent atrial fibrillation (principal); E11.42 Type 2 diabetes mellitus with diabetic polyneuropathy; I13.0 Hypertensive heart and chronic kidney disease with heart failure and stage 1 through stage 4 chronic kidney disease, or unspecified chronic kidney disease; E11.22 Type 2 diabetes mellitus with diabetic chronic kidney disease; N18.9 Chronic kidney disease, unspecified; I50.9 Heart failure, unspecified; M19.90 Unspecified osteoarthritis, unspecified site; G47.33 Obstructive sleep apnea (adult) (pediatric); Z85.038 Personal history of other malignant neoplasm of large intestine; Z85.05 Personal history of malignant neoplasm of liver; Z79.01 Long term (current) use of anticoagulants; Z79.4 Long term (current) use of insulin; Z79.899 Other long term (current) drug therapy
CPT/HCPCS: 92960; 93005; 93010; J2704

== ENCOUNTER 2021-02-04 10:03 | Day surgery (SDC) | payer MEDICARE ==
[2021-01-26 15:08] VITALS: BMI 27.5
[2021-02-04] MEDS ORDERED: Sodium Chloride 0.9% 20 ML ONE (10:08)
[2021-02-04 10:17] VITALS: BP 104/55; TEMP 98.4
== END 2021-02-04 14:02 | disposition home or self-care (01) ==
LOC: ONC/OP 10:03
PROVIDERS: ATTEND Internal Medicine Hematology & Oncology
DX: Z51.11 Encounter for antineoplastic chemotherapy (principal); C18.6 Malignant neoplasm of descending colon; C78.01 Secondary malignant neoplasm of right lung; C78.7 Secondary malignant neoplasm of liver and intrahepatic bile duct
CPT/HCPCS: 36415; 80053; 82248; 82378; 83615; 84100; 84550; 96367; 96375; 96413; 96415; 96416; 96417; J0461; J0640; J1100; J2469; J7030; J9190; J9206

== ENCOUNTER 2021-02-18 11:33 | Day surgery (SDC) | payer MEDICARE ==
[~2021-02-18 11:33] MED LIST changes: -Palonosetron HCl 0.25 MG in Sodium Chloride 0.9% 50 ML IVPB SCH
[2021-02-18 11:57] VITALS: BP 123/60; TEMP 97.9
[2021-02-18] MEDS ORDERED: Sodium Chloride 0.9% 20 ML ONE (12:02)
== END 2021-02-18 15:21 | disposition home or self-care (01) ==
LOC: ONC/OP 11:33
PROVIDERS: ATTEND Internal Medicine Hematology & Oncology
DX: Z51.11 Encounter for antineoplastic chemotherapy (principal); C18.6 Malignant neoplasm of descending colon; C78.01 Secondary malignant neoplasm of right lung; C78.7 Secondary malignant neoplasm of liver and intrahepatic bile duct
CPT/HCPCS: 36415; 80053; 82248; 82378; 83615; 84100; 84550; 96367; 96375; 96413; 96415; 96416; 96417; J0461; J0640; J1100; J2469; J7030; J9190; J9206

== ENCOUNTER 2021-03-25 11:15 | Day surgery (SDC) | payer MEDICARE ==
[2021-03-25] MEDS ORDERED: Sodium Chloride 0.9% 20 ML ONE (11:24)
[2021-03-25 12:21] VITALS: BP 124/68
== END 2021-03-25 14:52 | disposition home or self-care (01) ==
LOC: ONC/OP 11:15
PROVIDERS: ATTEND Internal Medicine Hematology & Oncology
DX: Z51.11 Encounter for antineoplastic chemotherapy (principal); C18.6 Malignant neoplasm of descending colon; C78.01 Secondary malignant neoplasm of right lung; C78.7 Secondary malignant neoplasm of liver and intrahepatic bile duct
CPT/HCPCS: 36415; 80053; 82248; 82378; 83615; 84100; 84550; 96367; 96375; 96413; 96415; 96416; 96417; J0461; J0640; J1100; J2469; J7030; J9190; J9206

== ENCOUNTER 2021-04-08 11:25 | Day surgery (SDC) | payer MEDICARE ==
[2021-04-08] MEDS ORDERED: Sodium Chloride 0.9% 20 ML ONE (11:30)
[2021-04-08 11:50] VITALS: BP 107/59
== END 2021-04-08 15:20 | disposition home or self-care (01) ==
LOC: ONC/OP 11:25
PROVIDERS: ATTEND Internal Medicine Hematology & Oncology
DX: Z51.11 Encounter for antineoplastic chemotherapy (principal); C18.6 Malignant neoplasm of descending colon; C78.01 Secondary malignant neoplasm of right lung; C78.7 Secondary malignant neoplasm of liver and intrahepatic bile duct
CPT/HCPCS: 80053; 82248; 82378; 83615; 84100; 84550; 96367; 96375; 96413; 96415; 96416; 96417; J0461; J0640; J1100; J2469; J7030; J9190; J9206

== ENCOUNTER 2021-04-22 11:36 | Day surgery (SDC) | payer MEDICARE ==
[2021-04-22] MEDS ORDERED: Sodium Chloride 0.9% 20 ML ONE (11:51)
== END 2021-04-22 15:12 | disposition home or self-care (01) ==
LOC: ONC/OP 11:36
PROVIDERS: ATTEND Internal Medicine Hematology & Oncology
DX: Z51.11 Encounter for antineoplastic chemotherapy (principal); C18.6 Malignant neoplasm of descending colon; C78.01 Secondary malignant neoplasm of right lung; C78.7 Secondary malignant neoplasm of liver and intrahepatic bile duct
CPT/HCPCS: 36415; 80053; 82248; 82378; 83615; 84100; 84550; 96367; 96375; 96413; 96415; 96416; 96417; J0461; J0640; J1100; J2469; J7030; J9190; J9206

== ENCOUNTER 2021-05-06 12:54 | Day surgery (SDC) | payer MEDICARE ==
[2021-05-06] MEDS ORDERED: Sodium Chloride 0.9% 20 ML ONE (13:00)
== END 2021-05-06 15:59 | disposition home or self-care (01) ==
LOC: ONC/OP 12:54
PROVIDERS: ATTEND Internal Medicine Hematology & Oncology
DX: Z51.11 Encounter for antineoplastic chemotherapy (principal); C18.6 Malignant neoplasm of descending colon; C78.01 Secondary malignant neoplasm of right lung; C78.7 Secondary malignant neoplasm of liver and intrahepatic bile duct
CPT/HCPCS: 36415; 80053; 82248; 82378; 83615; 84100; 84550; 96367; 96375; 96413; 96416; J0461; J0640; J1100; J2469; J7030; J9190; J9206

== ENCOUNTER 2021-05-20 11:12 | Day surgery (SDC) | payer MEDICARE ==
[2021-05-20 11:47] VITALS: BP 111/52
== END 2021-05-20 16:29 | disposition home or self-care (01) ==
LOC: ONC/OP 11:12
PROVIDERS: ATTEND Internal Medicine Hematology & Oncology
DX: Z51.11 Encounter for antineoplastic chemotherapy (principal); C18.6 Malignant neoplasm of descending colon; C78.01 Secondary malignant neoplasm of right lung; C78.7 Secondary malignant neoplasm of liver and intrahepatic bile duct
CPT/HCPCS: 96367; 96375; 96413; 96416; 96417; J0461; J0640; J1100; J2469; J7030; J9190; J9206

== ENCOUNTER → 2021-06-03 | Day surgery (SDC) | payer MEDICARE ==
[~2021-06-03] MED LIST changes: +Fluorouracil 800 MG in Sodium Chloride 0.9% 50 ML IVPB SCH; -Fluorouracil 900 MG in Sodium Chloride 0.9% 50 ML IVPB SCH; -IRINOTECAN IVPB SCH; +Irinotecan 250 MG in Sodium Chloride 0.9% 500 ML IVPB SCH; -SODIUM CHLORIDE 0.9% IVPB SCH; +Sodium Chloride 0.9% 20 ML ONE
[2021-06-03 12:04] VITALS: BP 129/60; TEMP 98.1
== END ==
LOC: ONC/OP 11:41
PROVIDERS: ATTEND Internal Medicine Hematology & Oncology
DX: Z51.11 Encounter for antineoplastic chemotherapy (principal); C18.6 Malignant neoplasm of descending colon; C78.01 Secondary malignant neoplasm of right lung; C78.7 Secondary malignant neoplasm of liver and intrahepatic bile duct
CPT/HCPCS: 80053; 82248; 82378; 83615; 84100; 84550; 96367; 96375; 96413; 96415; 96416; J0461; J0640; J1100; J2469; J7030; J9190; J9206

== ENCOUNTER 2021-06-17 13:32 | Day surgery (SDC) | payer MEDICARE ==
[~2021-06-17 13:32] MED LIST changes: -Sodium Chloride 0.9% 20 ML ONE
[2021-06-17] MEDS ORDERED: Sodium Chloride 0.9% 20 ML ONE (13:46)
[2021-06-17 14:32] VITALS: BP 115/58
== END 2021-06-17 16:28 | disposition home or self-care (01) ==
LOC: ONC/OP 13:32
PROVIDERS: ATTEND Internal Medicine Hematology & Oncology
DX: Z51.11 Encounter for antineoplastic chemotherapy (principal); C18.6 Malignant neoplasm of descending colon; C78.01 Secondary malignant neoplasm of right lung; C78.7 Secondary malignant neoplasm of liver and intrahepatic bile duct
CPT/HCPCS: 96367; 96375; 96413; 96416; 96417; J0461; J0640; J1100; J2469; J7030; J9190; J9206

== ENCOUNTER 2021-07-15 11:51 | Day surgery (SDC) | payer MEDICARE ==
[~2021-07-15 11:51] MED LIST changes: +Palonosetron HCl 0.25 MG in Sodium Chloride 0.9% 50 ML IVPB SCH
[2021-07-15] MEDS ORDERED: Sodium Chloride 0.9% 20 ML ONE (12:11)
== END 2021-07-15 16:12 | disposition home or self-care (01) ==
LOC: ONC/OP 11:51
PROVIDERS: ATTEND Internal Medicine Hematology & Oncology
DX: Z51.11 Encounter for antineoplastic chemotherapy (principal); C18.6 Malignant neoplasm of descending colon; C78.01 Secondary malignant neoplasm of right lung; C78.7 Secondary malignant neoplasm of liver and intrahepatic bile duct
CPT/HCPCS: 36415; 80053; 82248; 82378; 83615; 84100; 84550; 96367; 96375; 96401; 96413; 96415; 96416; J0461; J0640; J1100; J2469; J7030; J9190; J9206

== ENCOUNTER 2021-08-05 10:53 | Day surgery (SDC) | payer MEDICARE ==
[2021-08-05 11:31] VITALS: BP 136/74; TEMP 98.1
[2021-08-05] MEDS ORDERED: Sodium Chloride 0.9% 20 ML ONE (11:45)
== END 2021-08-05 15:22 | disposition home or self-care (01) ==
LOC: ONC/OP 10:53
PROVIDERS: ATTEND Internal Medicine Hematology & Oncology
DX: Z51.11 Encounter for antineoplastic chemotherapy (principal); C18.6 Malignant neoplasm of descending colon; C78.01 Secondary malignant neoplasm of right lung; C78.7 Secondary malignant neoplasm of liver and intrahepatic bile duct; E11.9 Type 2 diabetes mellitus without complications; I10 Essential (primary) hypertension; E78.5 Hyperlipidemia, unspecified; M19.90 Unspecified osteoarthritis, unspecified site; G47.33 Obstructive sleep apnea (adult) (pediatric); Z79.4 Long term (current) use of insulin; Z79.899 Other long term (current) drug therapy; Z90.49 Acquired absence of other specified parts of digestive tract
CPT/HCPCS: 36415; 80053; 82248; 82378; 83615; 84100; 84550; 96367; 96375; 96413; 96416; 96417; J0461; J0640; J1100; J2469; J7030; J9190; J9206

== ENCOUNTER 2021-08-19 13:09 | Day surgery (SDC) | payer MEDICARE ==
[~2021-08-19 13:09] MED LIST changes: +Dexamethasone 10 MG in Sodium Chloride 0.9% 50 ML IVPB SCH
[2021-08-19] MEDS ORDERED: Sodium Chloride 0.9% 20 ML ONE (13:36)
== END 2021-08-19 16:58 | disposition home or self-care (01) ==
LOC: ONC/OP 13:09
PROVIDERS: ATTEND Internal Medicine Hematology & Oncology
DX: Z51.11 Encounter for antineoplastic chemotherapy (principal); C18.6 Malignant neoplasm of descending colon; C78.01 Secondary malignant neoplasm of right lung; C78.7 Secondary malignant neoplasm of liver and intrahepatic bile duct
CPT/HCPCS: 36415; 80053; 82248; 82378; 83615; 84100; 84550; 96367; 96375; 96413; 96415; 96416; 96417; J0461; J0640; J1100; J2469; J7030; J9190; J9206

== ENCOUNTER 2021-09-02 11:02 | Day surgery (SDC) | payer MEDICARE ==
[~2021-09-02 11:02] MED LIST changes: -Dexamethasone 10 MG in Sodium Chloride 0.9% 50 ML IVPB SCH
[2021-09-02 11:44] VITALS: BP 126/73; TEMP 98.7
[2021-09-02] MEDS ORDERED: FLU VACC QS2021-22(65YR UP)/PF 240 MCG/0.7 ML SYRINGE IM ONE (16:00)
== END 2021-09-02 14:33 | disposition home or self-care (01) ==
LOC: ONC/OP 11:02
PROVIDERS: ATTEND Internal Medicine Hematology & Oncology
DX: Z51.11 Encounter for antineoplastic chemotherapy (principal); C18.6 Malignant neoplasm of descending colon; C78.01 Secondary malignant neoplasm of right lung; C78.7 Secondary malignant neoplasm of liver and intrahepatic bile duct
CPT/HCPCS: 80053; 82248; 82378; 83615; 84100; 84550; 96367; 96375; 96413; 96415; 96416; 96417; J0461; J0640; J1100; J2469; J7030; J9190; J9206

== ENCOUNTER 2021-10-14 11:09 | Day surgery (SDC) | payer MEDICARE ==
[~2021-10-14 11:09] MED LIST changes: -Atropine Sulfate 0.25 MG in Sodium Chloride 0.9% 50 ML IVPB SCH; +BEVACIZUMAB BVZR IV SCH; +Fluorouracil 800 MG in Dextrose 5% in Water 50 ML IVPB SCH; -Palonosetron HCl 0.25 MG in Sodium Chloride 0.9% 50 ML IVPB SCH; +SODIUM CHLORIDE 0.9% IV SCH
[2021-10-14] MEDS ORDERED: PALONOSETRON HCL 0.05 MG/ML 5 ML VIAL ONE (11:43)
[2021-10-14 13:00] VITALS: BP 143/67; TEMP 98.3
== END 2021-10-14 16:37 | disposition home or self-care (01) ==
LOC: ONC/OP 11:09
PROVIDERS: ATTEND Internal Medicine Hematology & Oncology
DX: Z51.11 Encounter for antineoplastic chemotherapy (principal); C18.6 Malignant neoplasm of descending colon; C78.01 Secondary malignant neoplasm of right lung; C78.7 Secondary malignant neoplasm of liver and intrahepatic bile duct
CPT/HCPCS: 80053; 81001; 82248; 82378; 83615; 84100; 84550; 85025; 96367; 96375; 96413; 96415; 96417; J0640; J1100; J2469; J3490; J7070; J9190; J9263; Q5118

== ENCOUNTER 2021-10-27 09:41 | Day surgery (SDC) | payer MEDICARE ==
[~2021-10-27 09:41] MED LIST changes: -Fluorouracil 800 MG in Sodium Chloride 0.9% 50 ML IVPB SCH; -Irinotecan 250 MG in Sodium Chloride 0.9% 500 ML IVPB SCH; +Palonosetron HCl 0.25 MG in Sodium Chloride 0.9% 50 ML IVPB SCH
[2021-10-27] MEDS ORDERED: Sodium Chloride 0.9% 10 ML ONE (09:48)
[2021-10-27] MEDS ORDERED: PALONOSETRON HCL 0.05 MG/ML 5 ML VIAL ONE (11:07)
[2021-10-27 12:05] VITALS: BP 141/66; TEMP 98
== END 2021-10-27 15:31 | disposition home or self-care (01) ==
LOC: ONC/OP 09:41
PROVIDERS: ATTEND Internal Medicine Hematology & Oncology
DX: Z51.11 Encounter for antineoplastic chemotherapy (principal); C18.6 Malignant neoplasm of descending colon; C78.01 Secondary malignant neoplasm of right lung; C78.7 Secondary malignant neoplasm of liver and intrahepatic bile duct
CPT/HCPCS: 96367; 96375; 96413; 96415; 96417; J0640; J1100; J2469; J3490; J7070; J9190; J9263; Q5118

== ENCOUNTER → 2021-11-11 | Day surgery (SDC) | payer MEDICARE ==
[~2021-11-11] MED LIST changes: +Acetaminophen 500 MG TAB ONE; +Acetaminophen 500 MG TAB PO SCH; +PALONOSETRON HCL 0.05 MG/ML 5 ML VIAL ONE
[2021-11-11 11:17] VITALS: BP 137/71
== END ==
LOC: ONC/OP 10:24
PROVIDERS: ATTEND Internal Medicine Hematology & Oncology
DX: Z51.11 Encounter for antineoplastic chemotherapy (principal); C18.6 Malignant neoplasm of descending colon; C78.01 Secondary malignant neoplasm of right lung; C78.7 Secondary malignant neoplasm of liver and intrahepatic bile duct
CPT/HCPCS: 87040; 96367; 96375; 96413; 96415; 96416; 96417; 99212; G0463; J0640; J1100; J2469; J3490; J7070; J9190; J9263; Q5118

== ENCOUNTER 2021-11-25 10:49 | Day surgery (SDC) | payer MEDICARE ==
[~2021-11-25 10:49] MED LIST changes: -Acetaminophen 500 MG TAB ONE; -Acetaminophen 500 MG TAB PO SCH; +FAMOTIDINE IVPB SCH; +Famotidine/PF 20 mg/2ml Vial SLOW IVP SCH; -PALONOSETRON HCL 0.05 MG/ML 5 ML VIAL ONE; -Palonosetron HCl 0.25 MG in Sodium Chloride 0.9% 50 ML IVPB SCH; +SODIUM CHLORIDE 0.9% IVPB SCH; +diphenhydrAMINE 50 MG in Sodium Chloride 0.9% 50 ML IVPB SCH
[2021-11-25] MEDS ORDERED: Famotidine/PF 20 mg/2ml Vial ONE (11:09)
[2021-11-25] MEDS ORDERED: Sodium Chloride 0.9% 10 ML ONE (11:10)
[2021-11-25] MEDS ORDERED: PALONOSETRON HCL 0.05 MG/ML 5 ML VIAL ONE (11:11)
[2021-11-25] MEDS ORDERED: diphenhydrAMINE 50 MG/ML VIAL IVP PRN (12:10)
[2021-11-25] MEDS ORDERED: diphenhydrAMINE 50 MG/ML VIAL ONE (12:11)
[2021-11-25 12:53] VITALS: BP 159/77; TEMP 98.7
== END 2021-11-25 16:34 | disposition home or self-care (01) ==
LOC: ONC/OP 10:49
PROVIDERS: ATTEND Internal Medicine Hematology & Oncology
DX: Z51.11 Encounter for antineoplastic chemotherapy (principal); C18.6 Malignant neoplasm of descending colon; C78.01 Secondary malignant neoplasm of right lung; C78.7 Secondary malignant neoplasm of liver and intrahepatic bile duct
CPT/HCPCS: 80053; 82248; 82378; 83615; 84100; 84550; 96367; 96375; 96413; 96415; 96416; 96417; 99212; G0463; J0640; J1100; J1200; J2469; J3490; J7070; J9190; J9263; Q5118; S0028

== ENCOUNTER 2022-02-22 09:13 | Day surgery (SDC) | payer MEDICARE ==
[2022-02-18 10:15] VITALS: BMI 24.0
[2022-02-22] MEDS ORDERED: PROPOFOL 20 ML ONE (13:12)
== END 2022-02-22 15:54 | disposition home or self-care (01) ==
LOC: SDC 09:13
PROVIDERS: ATTEND Internal Medicine Cardiovascular Disease
PROC: 5A2204Z Restoration of Cardiac Rhythm, Single (ICD-10-PCS; principal; 2022-02-22)
DX: I48.19 Other persistent atrial fibrillation (principal); E11.42 Type 2 diabetes mellitus with diabetic polyneuropathy; G47.33 Obstructive sleep apnea (adult) (pediatric); Z85.038 Personal history of other malignant neoplasm of large intestine; Z79.01 Long term (current) use of anticoagulants; Z79.4 Long term (current) use of insulin; Z79.899 Other long term (current) drug therapy; Z90.49 Acquired absence of other specified parts of digestive tract; Z98.890 Other specified postprocedural states
CPT/HCPCS: 92960; 93005; 93010; J2704